=== PATIENT | male | born 1965 | race Two or more races ===

== ENCOUNTER 2024-04-27 20:43 | Inpatient (IN) | payer MEDICAID, SELFPAY ==
--- NOTE | 2024-04-27 20:56 | EKG_ITS ---
[facility] Test Date: 2024-04-27 Pat Name: DARIN ATKINSON Department: Room: - Gender: Male Patient Support Partner: : 1965 Requested By: Brandin Miller Order Number: [id number] Reading MD: Brandin Miller Measurements Intervals [place] Rate: 83 P: 38 AL: 176 QRS: 29 QRSD: 109 T: 50 QT: 386 QTc: 454 Interpretive Statements SINUS RHYTHM WITH OCCASIONAL SUPRAVENTRICULAR PREMATURE COMPLEXES WARNING: DATA QUALITY MAY AFFECT INTERPRETATION No previous ECG available for comparison /store/S0/[id number]/ecg/[id number]
--- NOTE | 2024-04-27 20:56 | XR_ITS ---
Examination: AP chest single view Technique one AP portable upright chest single view Exam date and time: April 27, [id number] hrs. Indications: Vomiting blood today Findings: No aspiration pneumonia Mild prominence left ventricle Mild ectasia thoracic aorta Intact osseous structures Impression: Negative for aspiration pneumonia
--- NOTE | 2024-04-27 20:59 | EDNOTE_ITS ---
ED General RME/HPI General Chief complaint: GI Bleed Stated complaint: VOMITING BLOOD Time Seen by Provider: 04/27/24 20:56 Arrival date/time: 04/27/24 20:43 CC alcohol intoxication vomiting blood bloody stool HPI EMS report picking him up at a house facility where the patient been drinking all day. Patient states again complaining of vomiting, but no back pain abdominal pain chest pain or nausea or vomiting diarrhea. Upon arrival patient vomited bright red blood in addition to foul-smelling burgundy feces. Related Data Previous Rx's ?Medication ?Instructions ?Recorded nadolol 20 mg tablet 20 mg PO QDAY #30 tabs 02/10 Allergies Allergy/AdvReac Type Severity Reaction Status Date / Time No Known Allergies Allergy Verified 04/05/17 18:56 Review of Systems Review of Systems Narrative Review of Systems: GEN: No fever, no chills, no weight loss EYES: No discharge, no visual changes, no pain HEENT: No ear pain, no congestion, no sore throat PULM: No shortness of breath, no cough, no congestion CV: No chest pain, no dyspnea on exertion, no palpitations GI: No nausea, + vomiting, no diarrhea, no pain, no constipation : No frequency, no urgency, no dysuria MUSC/SKEL: No joint pain, no back pain SKIN: No rash PSYCH: No hallucinations, no depression HEME/LYMPH: No easy bleeding or bruising tendencies NEURO: No weakness, no headache Past Medical History Past Medical History NEUROLOGIC: Negative Seizures CARDIAC: Negative Congestive Heart Failure RESPIRATORY: Negative Chronic Obstructive Pulmonary Disease (COPD) GENITOURINARY: Negative Renal Disease ENDOCRINE: Positive Diabetes Mellitus Type 1; Negative Diabetes Mellitus Type 2 OTHER HISTORY: Positive Blood Transfusions; Negative Blood Transfusion Reaction or Anesthesia Reactions Social History SMOKING STATUS: Former smoker ED Exam Narrative Physical exam: [General: Appears not in any acute distress Head normocephalic HEENT: Eyes pupils are PERRLA EOMs are intact subtle jaundice, nose no rhinorrhea mouth pink dry membranes uvula is midline swallow symmetrical all the subsystems of HEENT are within acceptable limits Neck is supple nontender Chest equal chest rise nontender to palpation Respiratory: Clear to auscultation no wheezes crackles or rubs CV: Rate rhythm is regular no murmurs rubs or clicks Abdomen is soft nontender no masses positive bowel sounds all 4 quadrants Back: No CVA tenderness no spinous process tenderness from cervical spine thoracic and lumbar spine Skin: Intact no petechiae rash induration ulceration or crepitus Extremities: Moving all extremity against resistance cap refill less than 2 seconds neurosensory intact Neuro: Awake alert oriented x3 Glascow coma 15 no focal deficits] Course Quality Measures VTE prophylaxis Orders Category Date Time Status Bedside COVID-19 Antigen Test NOW Care 04/27/24 21:47 Active COVID-19 Screening Questionnaire NOW Care 04/27/24 21:18 Active EKG (ED ONLY) *Do not use* NOW Care 04/27/24 20:56 Completed EKG (ED ONLY) *Do not use* NOW Care 04/27/24 22:12 Completed Endoscopy Consents .On arrival Care 04/27/24 21:41 Active NPO after Midnight ONCE Care 04/27/24 21:41 Active Saline [Insert IV] NOW Care 04/27/24 20:56 Active Transfuse,blood/blood products NOW Care 04/27/24 21:27 Active Consult to Gastroenterology Stat Cons 04/27/24 21:12 Ordered EKG (ED Only) Stat Exams 04/27/24 20:56 Draft EKG (ED Only) Stat Exams 04/27/24 22:12 Draft XR chest 1V Stat Exams 04/27/24 20:56 Completed Alcohol, Blood Medical Stat Lab 04/27/24 21:02 Completed B-Type Natriuretic Peptide Stat Lab 04/27/24 21:02 Completed CBC Stat Lab 04/27/24 21:02 Completed Comprehensive Metabolic Panel Stat Lab 04/27/24 21:02 Completed Drug Screen,Urine Stat Lab 04/27/24 23:30 Completed LDH (Lactate Dehydrogenase) Stat Lab 04/27/24 21:02 Completed Magnesium Stat Lab 04/27/24 21:02 Completed Partial Thromboplastin Time Stat Lab 04/27/24 21:02 Completed Path Review Blood Smear Stat Lab 04/27/24 21:02 Completed Prothrombin Time with INR Stat Lab 04/27/24 21:02 Completed Troponin I Stat Lab 04/27/24 21:02 Completed Type and Screen Stat Lab 04/27/24 21:02 Results Urinalysis Stat Lab 04/27/24 23:30 Completed prbc [Red Blood Cells] Stat Lab 04/27/24 21:02 Results Octreotide Acet Inj [SandoSTATIN Inj] Med 04/27/24 21:06 Discontinued 50 mcg IV X1 ONE Ondansetron Inj [Zofran Inj] Med 04/27/24 21:25 Discontinued 8 mg IV X1 ONE Pantoprazole Inj [Protonix Inj] Med 04/27/24 20:56 Discontinued 40 mg IVP X1 ONE Pantoprazole/Ns 80Mg IV Premix [Protonix/NS 80mg IV Med 04/27/24 20:57 Active Premix] 80 mg in 100 ml IV Q10H Sodium Chloride 0.9% 500 ml [Ns] 500 ml Med 04/27/24 22:16 Discontinued IV 999 mls/hr Sodium Chloride 0.9% [Ns] 100 ml Med 04/27/24 20:57 Active Octreotide Acet Inj [SandoSTATIN Inj] 1,000 mcg IV 50 mcg/hr Vital Signs Vital signs: Vital Signs Temperature 97.2 F 04/27/24 21:23 Pulse Rate 79 04/27/24 21:23 Respiratory Rate 17 04/27/24 21:23 Blood Pressure 101/48 L 04/27/24 21:23 Pulse Oximetry (%) 100 04/27/24 21:23 Oxygen Delivery Method Room Air 04/27/24 21:23 [facility] Patient data External records reviewed:: [facility] previous records and EMS form Clinical information provided by:: patient and EMS Social determinants that could affect healthcare access:: none Patient has the following chronic illnesses:: Hypertension hyperlipidemia diabetes alcohol abuse How is presenting disease/condition affected by chronic disease/condition?: e xacerbated by Evaluation data The following diagnostics were reviewed and interpreted by me:: other (specify) Lab and/or radiology exams considered but not ordered:: EKG performed at 2106 shows a ventricular rate of 83 SD interval 176 QRS of 109 QTc of 425 this is sinus rhythm. CBC shows a leukocytosis of 14,000 hemoglobin of 5.6 hematocrit of 17.7 platelets at 94 PT at 15.4 INR 1.4 PTT of 26.1 CMP shows CO2 of 13.8 and a gap of 21 creatinine of 1.6 glucose of 132 calcium of 7.9 total bili of 2.9 AST of 1305 ALT of 667 alk phos of 97 Troponin is negative BNP is 24 Alcohol level is 298 Interpretation Summary: Patient's case discussed with Dr. Liu agrees to consult on the patient for upper GI bleed patient is in agreement with this plan. Patient's case discussed with resident for Dr. Miller, attending, who agrees to accept the patient for admission. Medications Medications considered but not ordered:: None Medication administrations:: Medication Administration History Acetaminophen (Acetaminophen 325 Mg Tablet) 325 mg PO Q6H PRN PRN Reason: Pain (1-3) & Fever >101.5 Stop: 05/27/24 22:47 Dextrose (Dextrose 50%-Water Inj 50 Ml Syringe) 25 ml IV Q15MIN PRN PRN Reason: BG 50-70 responsive npo pt Stop: 05/28/24 01:58 Dextrose (Dextrose 50%-Water Inj 50 Ml Syringe) 50 ml IV Q15MIN PRN PRN Reason: BG <50 OR BG <70 & pt unresponsive Stop: 05/28/24 01:58 Glucagon (Glucagon Inj 1 Mg Vial) 1 mg IM Q15MIN PRN PRN Reason: BG <70, and no IV access Octreotide Acetate 1,000 mcg/ (Sodium Chloride) 102 mls @ 5.1 mls/hr IV .Q20H [facility]; Protocol Stop: 04/28/24 16:56 Last Admin: 04/27/24 21:17 Dose: 50 mcg/hr, 5.1 mls/hr Documented By: CINDI Pantoprazole Sodium (Protonix/Ns 80mg Iv Premix) 80 mg in 100 mls @ 10 mls/hr IV Q10H [facility] Stop: 04/30/24 18:56 Last Admin: 04/28/24 05:48 Dose: 10 mls/hr Documented By: Infusion: 04/28/24 05:48 Dose: Infused Documented By: Admin: 04/27/24 21:13 Dose: 10 mls/hr Documented By: CINDI Ceftriaxone Sodium 1,000 mg/ (Sodium Chloride) 50 mls @ 100 mls/hr IV HS [facility] Stop: 05/05/24 20:59 Octreotide Acetate 1,000 mcg/ (Sodium Chloride) 102 mls @ 5.1 mls/hr IV .Q20H [facility]; Protocol Stop: 05/02/24 22:55 Albumin Human (Albuminar-25 Ivpb) 25 gm in 100 mls @ 100 mls/hr IV QDAY [facility] Stop: 05/01/24 09:40 Last Admin: 04/28/24 10:05 Dose: 100 mls/hr Documented By: INNA Insulin Human Lispro (Insulin Lispro (Admelog) 1 Unit/0.01 Ml Unit) 0 unit SC Q6HR [facility]; Protocol Stop: 05/28/24 05:59 Last Admin: 04/28/24 05:47 Dose: 1 unit Documented By: HARJIT Co-signed By: AIDEN Lorazepam (Lorazepam 2 Mg/Ml Vial) 0.5 mg IV Q4H PRN PRN Reason: CIWA SCORE 8-13 Stop: 05/02/24 22:57 Lorazepam (Lorazepam 2 Mg/Ml Vial) 2 mg IV Q4H PRN PRN Reason: CIWA SCORE 20-25 Stop: 05/02/24 22:57 Lorazepam (Lorazepam 2 Mg/Ml Vial) 2 mg IVP X1 PRN PRN Reason: Breakthrough Agitation Lorazepam (Lorazepam 2 Mg/Ml Vial) 1 mg IV Q4H PRN PRN Reason: CIWA SCORE 14-19 Stop: 05/02/24 22:57 Ondansetron HCl (Ondansetron Inj 2 Mg/Ml Inj 2 Ml) 4 mg IV Q6H PRN; Protocol PRN Reason: NAUSEA OR VOMITING Stop: 05/27/24 22:47 Last Admin: 04/28/24 07:54 Dose: 4 mg Documented By: INNA Prednisone (Prednisone 20 Mg Tablet) 40 mg PO QDAY [facility] Stop: 05/05/24 07:58 Last Admin: 04/28/24 09:40 Dose: 40 mg Documented By: JRR Discontinued Medications Dextrose (Dextrose 50%-Water Inj 50 Ml Syringe) 50 ml IV X1 ONE Stop: 04/28/24 07:40 Last Admin: 04/28/24 07:55 Dose: 50 ml Documented By: INNA Sodium Chloride (Ns) 500 mls @ 999 mls/hr IV .Q31M ONE Stop: 04/27/24 22:46 Last Admin: 04/27/24 22:36 Dose: 999 mls/hr Documented By: CINDI Sodium Chloride (Ns) 500 mls @ 999 mls/hr IV .Q31M ONE Stop: 04/27/24 23:18 Last Admin: 04/28/24 01:01 Dose: 999 mls/hr Documented By: HARJIT Octreotide Acetate 1,000 mcg/ (Sodium Chloride) 102 mls @ 5.1 mls/hr IV .Q20H [facility]; Protocol Stop: 05/02/24 22:55 Last Admin: 04/28/24 07:17 Dose: Not Given Documented By: INNA Non-Admin Reason: Wrong Time Thiamine HCl 100 mg/ Sodium (Chloride) 51 mls @ 102 mls/hr IV X1 STA Stop: 04/27/24 23:27 Last Admin: 04/28/24 01:46 Dose: 102 mls/hr Documented By: HARJIT Ceftriaxone Sodium 1,000 mg/ (Sodium Chloride) 50 mls @ 100 mls/hr IV X1 ONE Stop: 04/27/24 23:44 Last Admin: 04/28/24 02:13 Dose: 100 mls/hr Documented By: HARJIT Calcium Gluconate/Sodium Chloride (Calcium Gluc/Ns 1000mg Ivpb) 1,000 mg in 50 mls @ 50 mls/hr IV X1 ONE Stop: 04/28/24 08:38 Last Admin: 04/28/24 07:55 Dose: 50 mls/hr Documented By: INNA Insulin Human Regular (Insulin Hum Regular 1 Unit/0.01 Ml (Per Unit)) 5 unit IV X1 ONE Stop: 04/28/24 07:40 Last Admin: 04/28/24 07:56 Dose: 5 unit Documented By: INNA Co-signed By: KYLIE Octreotide Acetate (Octreotide Acet Inj 50 Mcg/Ml Vial) 50 mcg IV X1 ONE Stop: 04/27/24 21:07 Last Admin: 04/27/24 21:16 Dose: 50 mcg Documented By: CINDI Ondansetron HCl (Ondansetron Inj 2 Mg/Ml Inj 2 Ml) 8 mg IV X1 ONE; Protocol Stop: 04/27/24 21:26 Last Admin: 04/27/24 21:59 Dose: 8 mg Documented By: CINDI Pantoprazole Sodium (Pantoprazole Inj 40 Mg Vial) 40 mg IVP X1 ONE Stop: 04/27/24 20:57 Last Admin: 04/27/24 21:13 Dose: 40 mg Documented By: CINDI Pantoprazole Sodium (Pantoprazole 40 Mg Tablet) 40 mg PO Q12HR [facility] Stop: 05/28/24 08:59 Pantoprazole Sodium (Pantoprazole Inj 40 Mg Vial) 40 mg IVP BID SREE Stop: 05/28/24 08:59 Phytonadione (Phytonadione Inj 10 Mg/Ml Amp) 10 mg IV X1 ONE Stop: 04/28/24 09:42 Last Admin: 04/28/24 10:05 Dose: 10 mg Documented By: INNA None Consultations Consultation(s) initiated? (list below): No Diagnosis Differential Diagnosis ED Complaint MDM: GI bleed anemia alcohol intoxication Most likely diagnosis given after review of the tests above:: GI bleed alcohol intoxication anemia Admission Indicated Admission indicated?: indicated Explain why admission is indicated or not indicated:: Requires further medical management Admission Request Was there a request for admission?: No Disposition Plan Disposition Plan: Admit Medical Decision Making Differential Diagnosis Differential Diagnosis: GI bleed anemia alcohol intoxication Lab Data 04/28/24 08:26 04/28/24 08:13 Labs: Lab Results 04/27/24 Range/Units 21:02 WBC 14.0 H (3.8-10.6) Thou/mm3 RBC 2.17 L (4.50-5.90) Miln/mm3 Hgb 5.6 L* (13.5-16.0) g/dL Hct 17.7 L* (41.0-53.0) % MCV 82 (80-100) fL MCH 25.8 (25.0-35.0) pg MCHC 31.6 (31.0-37.0) g/dl RDW Std Deviation 61.9 H (35.1-43.9) fL Plt Count 94 L (140-440) Thou/mm3 Neut % (Auto) 77 (37-80) % Lymph % (Auto) 13 (10-50) % [place] % (Auto) 9 (0-12) % Eos % (Auto) 0 (0-10) % Baso % (Auto) 0 (0-2.5) % Neut # (Auto) 10.7 H (1.8-7.7) Thou/mm3 Lymph # (Auto) 1.9 (1.0-4.8) Thou/mm3 [place] # (Auto) 1.2 H (0.0-0.8) Thou/mm3 Eos # (Auto) 0.0 (0.0-0.5) Thou/mm3 Baso # (Auto) 0.0 (0.0-0.2) Thou/mm3 Immature Gran # (Auto) 0.16 H (0.00-0.00) Thou/mm3 Absolute Nucleated RBC 0.03 H (0.00-0.00) Thou/mm3 Immature Gran % 1 H (0-0) % Nucleated RBC % 0 (0) /100 WBC Smear Path Review Sent to Pathologist PT 15.4 H (9.0-12.2) Seconds INR 1.4 H (0.9-1.3) APTT 26.1 (22.0-36.0) Seconds Sodium 142 (136-145) mMol/L Potassium 4.5 (3.4-5.1) mMol/L Chloride 107 (98-107) mMol/L Carbon Dioxide 13.8 L* (20.0-31.0) mMol/L Anion Gap 21 H (7-16) BUN 22 (9-23) mg/dL Creatinine 1.6 H (0.6-1.3) mg/dL Estim Creat Clear Calc 44.9 L (>60) mL/min eGFR 49 L (60 - ) See Note BUN/Creatinine Ratio 14 (12-20) Ratio Glucose 132 H (74-106) mg/dL Calculated Osmolality 288 (275-295) Calcium 7.9 L (8.3-10.6) mg/dL Corrected Calcium 8.9 (8.5-10.1) mg/dL Magnesium 2.6 (1.6-2.6) mg/dL Total Bilirubin 2.9 H (0.3-1.2) mg/dL AST 1305 H* (0-34) U/L ALT 667 H* (10-49) U/L Alkaline Phosphatase 97 (46-116) U/L Lactate Dehydrogenase 1904 H (120-246) U/L Troponin I 0.020 (0.0-0.045) ng/mL B-Natriuretic Peptide 24 (0-100) pg/mL Total Protein 5.2 L (5.7-8.2) gm/dL Albumin 2.8 L (3.5-5.0) gm/dL Globulin 2.4 (2.3-3.5) gm/dL Albumin/Globulin Ratio 1.2 (1.2-2.2) Ethyl Alcohol 298.1 H (0-10.0) mg/dL Blood Type O Positive Antibody Screen NEGATIVE Crossmatch See Detail Blood Bank Wristband ID Yes Discharge Plan Plan Patient Disposition: Admit Acute Care w/in Hospital Patient condition on transfer: Stable Problem List Clinical Impression: Acute upper GI bleeding, Anemia, Alcohol intoxication PA/PIGMENT GRINDER Supervising Physician PA/PIGMENT GRINDER Supervising Physician: Brandin Vargas ENP
[2024-04-27] MEDS: PANTOPRAZOLE/NS 80MG IV PREMIX 80 MG/100 ML BAG 10 MG IV (21:13)
[2024-04-27] MEDS: PANTOPRAZOLE INJ 40 MG VIAL IVP (21:13)
[2024-04-27] MEDS: OCTREOTIDE ACET INJ 50 mCg/ML VIAL IV (21:16)
[2024-04-27] MEDS: OCTREOTIDE ACET INJ 1,000 MCG in SODIUM CHLORIDE 0.9% 100 ML 5.1 MCG IV (21:17)
[2024-04-27 21:23] VITALS: BP 101/48; PULSE 79; RESP 17; TEMP 36.2; O2SAT 100
[2024-04-27 21:23] LABS: Basophils % (Auto) 0 % (0-2.5); Eosinophils % (Auto) 0 % (0-10); Immature Granulocytes % (Auto) 1 % (0-0); Immature Granulocytes Auto 0.16 Thou/mm3 (0.00-0.00); Lymphocytes # (Auto) 1.9 Thou/mm3 (1.0-4.8); Lymphocytes % (Auto) 13 % (10-50); Mean Corpuscular HGB Conc 31.6 g/dl (31.0-37.0); Mean Corpuscular Hemoglobin 25.8 pg (25.0-35.0); Mean Corpuscular Volume 82 fL (80-100); Monocytes # (Auto) 1.2 Thou/mm3 (0.0-0.8); Monocytes % (Auto) 9 % (0-12); Neutrophils # (Auto) 10.7 Thou/mm3 (1.8-7.7); Neutrophils % (Auto) 77 % (37-80); Nucleated Red Blood Cell # 0.03 Thou/mm3 (0.00-0.00); Nucleated Red Blood Cell % 0 /100 WBC (0); Platelet Count 94 Thou/mm3 (140-440); RDW Standard Deviation 61.9 fL (35.1-43.9); Red Blood Count 2.17 Miln/mm3 (4.50-5.90)
[2024-04-27 21:28] LABS: Hematocrit 17.7 % (41.0-53.0); Hemoglobin 5.6 g/dL (13.5-16.0)
[2024-04-27 21:30] VITALS: PULSE 91; RESP 20; O2SAT 98
[2024-04-27 21:39] LABS: INR 1.4 (0.9-1.3); Partial Thromboplastin Time 26.1 Seconds (22.0-36.0); Prothrombin Time 15.4 Seconds (9.0-12.2)
--- NOTE | 2024-04-27 21:40 | ESCONSULT_ITS ---
HPI Consult Narrative Reason for consult: Hematemesis History of present illness: 59 male evaluated at request of the physician assignment desk assistant in the emergency room for hematemesis and hematochezia Patient has been drinking up until he came to the hospital He has a previous history of upper GI bleed due to hypertensive portal gastropathy and esophageal varices cc:: cc: Review of Systems Review of Systems Systems Reviewed: All systems reviewed, normal except as documented Meds Home Medications and Allergies Allergies Allergy/AdvReac Type Severity Reaction Status Date / Time No Known Allergies Allergy Verified 04/05/17 18:56 Exam Vital Signs Temp Pulse Resp BP Pulse Ox O2 Del Method 97.2 F 79 17 101/48 L 100 Room Air 04/27/24 21:23 04/27/24 21:23 04/27/24 21:23 04/27/24 21:23 04/27/24 21:23 04/27/24 21:23 Constitutional Comments: Alert oriented Routine Respiratory Exam Comments: Normal to auscultation Routine Abdominal Exam Comments: Soft nontender Results Labs 04/28/24 12:16 04/28/24 08:13 Labs: Short CBC 04/27/24 Range/Units 21:02 WBC 14.0 H (3.8-10.6) Thou/mm3 Hgb 5.6 L* (13.5-16.0) g/dL Hct 17.7 L* (41.0-53.0) % Plt Count 94 L (140-440) Thou/mm3 Assessment and Plan Additional Assessment & Plan Additional Plan: # Hematemesis # Hematochezia in the setting of chronic liver disease secondary to alcohol Plan Case discussed with the emergency room physician assignment desk assistant Serial CBC Octreotide 50 mcg IV push and 50 mcg/h continuous infusion Protonix drip at 8 mg/h N.p.o. Consent obtained for fiberoptic esophagogastroduodenoscopy with possible therapeutic intervention under intravenous moderate sedation and scheduled Prognosis is guarded Advised the patient to be completely abstinent from alcohol otherwise the prognosis is much worse
[2024-04-27 21:46] LABS: B-Type Natriuretic Peptide 24 pg/mL (0-100)
[2024-04-27] MEDS: ONDANSETRON INJ 2 MG/ML INJ 2 ML 8 MG IV (21:59)
[2024-04-27 22:03] VITALS: BMI 25.0
--- NOTE | 2024-04-27 22:12 | EKG_ITS ---
[facility] Test Date: 2024-04-27 Pat Name: DARIN ATKINSON Department: Room: - Gender: Male Physiotherapist'S Assistant: : 1965 Requested By: Brandin Miller Order Number: [id number] Reading MD: Brandin Miller Measurements Intervals [place] Rate: 75 P: 0 [place]: 182 QRS: 37 QRSD: 114 T: 49 QT: 405 QTc: 453 Interpretive Statements SINUS RHYTHM MODERATE INTRAVENTRICULAR CONDUCTION DELAY [110+ ms QRS DURATION] Compared to ECG 04/27/2024 21:07:46 Intraventricular conduction delay now present /store/S0/[id number]/ecg/[id number]
[2024-04-27 22:14] LABS: Alanine Aminotransferase 667 U/L (10-49); Albumin, Serum 2.8 gm/dL (3.5-5.0); Albumin/Globulin Ratio 1.2 (1.2-2.2); Alcohol, Blood Medical 298.1 mg/dL (0-10.0); Alkaline Phosphatase 97 U/L (46-116); Anion Gap 21 (7-16); Aspartate Amino Transferase 1305 U/L (0-34); BUN/Creatinine Ratio 14 Ratio (12-20); Bilirubin,Total 2.9 mg/dL (0.3-1.2); Blood Urea Nitrogen 22 mg/dL (9-23); Calcium 7.9 mg/dL (8.3-10.6); Calcium (Corrected) 8.9 mg/dL (8.5-10.1); Chloride 107 mMol/L (98-107); Creatinine (Component) 1.6 mg/dL (0.6-1.3); Estimated Creatinine Clearance 44.9 mL/min (>60); Globulin 2.4 gm/dL (2.3-3.5); Glucose 132 mg/dL (74-106); Magnesium 2.6 mg/dL (1.6-2.6); Osmolality,Calculated 288 (275-295); Potassium 4.5 mMol/L (3.4-5.1); Sodium 142 mMol/L (136-145); Total Protein 5.2 gm/dL (5.7-8.2); eGFR 49 See Note
--- NOTE | 2024-04-27 22:15 | PC.NURSE ---
pt seen MD calabrese, will have EGD in am. MD wong in room doing intial assessment for admit, new orders received and critical values reported in person. see charting. pt moved to 01 @[id number]
[2024-04-27 22:23] LABS: Carbon Dioxide 13.8 mMol/L (20.0-31.0)
[2024-04-27 22:29] VITALS: BP 94/45; PULSE 76; PULSE 77; RESP 16; RESP 20; O2SAT 100
[2024-04-27] MEDS: SODIUM CHLORIDE 0.9% 500 ML 500 ML 999 ML IV (22:36)
[2024-04-27 22:48] VITALS: BP 97/48; PULSE 77; RESP 16; TEMP 36.4; O2SAT 100
[2024-04-27 23:03] LABS: LDH (Lactate Dehydrogenase) 1904 U/L (120-246)
[2024-04-27 23:04] VITALS: BP 109/53; PULSE 84; RESP 16; TEMP 36.4; O2SAT 100
--- NOTE | 2024-04-27 23:10 | ESHP_ITS ---
Documentation for date of: 04/27/24 HPI History of Present Illness Chief complaint: Bloody emesis History of present illness: Mr. Villarreal is a 57-year-old male with past medical history of hypertension, hyperlipidemia, diabetes mellitus and alcohol use disorder who was BIBA to [facility] emergency department on 04/27/2024 with a chief complaint of blood in vomit. Patient at bedside reported that he has been vomiting blood and has noticed blood in stool since a.m. today, reported that he has been drinking a lot of beer, reports drinking from 8 AM to 6 PM today, he reports that he has been feeling dizzy, complains of headache currently. Otherwise patient denies any chest pain, abdominal pain and shortness of breath. Patient denies following up with a collar closer lockstitch or primary care physician outpatient, reports last time he saw a doctor was about 3 years ago. ED Course: ED Vitals: On presentation blood pressure 101/48, P 79, temp 97.2, respiratory rate 17, O2 sat 100 on room air ED Labs: Emergency department labs significant for WBC 14.0, RBC 2.17, hemoglobin 5.6, hematocrit 17.7, platelet count 94,000 neutrophil 10.7 thousand PT 15.4, INR 1.4, VBG pH 7.29 pCO2 27, sodium 142, potassium 4.5 venous CO2 13.8 anion gap 21 creatinine 1.6, GFR 49 glucose 132 lactate 10.6, total bilirubin 2.9, AST 1305, ALT 667, LDH 1904. Blood alcohol level 298.1, marijuana positive in urine drug screen ED Imaging:Chest x-ray in ED negative for aspiration pneumonia ED Treatment:Patient was given pantoprazole 40 mg IVP x 1, started on Protonix drip and octreotide drip in ED, was given Zofran 8 mg IV x 1 Review of Systems Review of Systems Narrative Review of Systems: ROS: -CONSTITUTIONAL: Denies weight loss, fever and chills. Positive for dizziness. -HEENT: Denies changes in vision and hearing. -RESPIRATORY: Denies SOB and cough. -CV: Denies palpitations and Chest Pain. -GI: Positive for bloody emesis, blood in stool. -: Denies dysuria and urinary frequency. -MSK: Denies myalgia and joint pain. -SKIN: Denies rash and pruritus. -NEUROLOGICAL: Positive for headache and dizziness, denies syncope. -PSYCHIATRIC: Denies recent changes in mood. Denies anxiety and depression. Positive for heavy alcohol use. Past Medical History Past Medical History Comments PMH COMMENT: PMH: Positive for hypertension, hyperlipidemia, diabetes mellitus and alcohol use disorder PSHx: EGD in 2022 Allergies: No known allergies Social history: -Smoking: Denies -Alcohol Use: Positive for alcohol use, reports drinking multiple cans of beer daily, from 8 a.m. to 6 PM, last drink today -Illicit Drug Use: Denies any methamphetamine, heroin and THC use Family History: No significant family history Exam Vital Signs Temp Pulse Resp BP Pulse Ox O2 Del Method 97.5 F 84 16 109/53 L 100 Room Air 04/27/24 23:04 04/27/24 23:04 04/27/24 23:04 04/27/24 23:04 04/27/24 23:04 04/27/24 22:29 Narrative Exam Physical Exam General: Awake and in no acute distress. Conversational and non-toxic appearing. HEENT: Normocephalic, atraumatic, mucous membranes dry. Heart: Regular rate and rhythm, no murmurs. Lungs: Clear to auscultation with no wheezing or crackles. Abdomen: Soft, nondistended, nontender, positive bowel sounds. ?No guarding or rebound tenderness. Neurologic: Alert and oriented x3, no gross neurological deficit, and patient able to move all 4 extremities. Extremities: No edema. Skin: No rash or ecchymoses. Results: Labs 04/28/24 12:16 04/28/24 08:13 Labs: Short CBC 04/27/24 Range/Units 21:02 WBC 14.0 H (3.8-10.6) Thou/mm3 Hgb 5.6 L* (13.5-16.0) g/dL Hct 17.7 L* (41.0-53.0) % Plt Count 94 L (140-440) Thou/mm3 BMP 04/27/24 21:02 Sodium 142 Potassium 4.5 Chloride 107 Carbon Dioxide 13.8 L* BUN 22 Creatinine 1.6 H Glucose 132 H Calcium 7.9 L Cardiac Enzymes 04/27/24 Range/Units 21:02 Troponin I 0.020 (0.0-0.045) ng/mL Liver Function 04/27/24 Range/Units 21:02 Total Bilirubin 2.9 H (0.3-1.2) mg/dL AST 1305 H* (0-34) U/L ALT 667 H* (10-49) U/L Alkaline Phosphatase 97 (46-116) U/L Albumin 2.8 L (3.5-5.0) gm/dL Quality Measures Quality Measures VTE prophylaxis Medications Home Medications and Allergies Allergies Allergy/AdvReac Type Severity Reaction Status Date / Time No Known Allergies Allergy Verified 04/05/17 18:56 Visit Medications Acetaminophen (Acetaminophen 325 Mg Tablet) 325 mg PO Q6H PRN PRN Reason: Pain (1-3) & Fever >101.5 Stop: 05/27/24 22:47 Octreotide Acetate 1,000 mcg/ (Sodium Chloride) 102 mls @ 5.1 mls/hr IV .Q20H ONE; Protocol Stop: 04/28/24 16:56 Last Admin: 04/27/24 21:17 Dose: 50 mcg/hr, 5.1 mls/hr Pantoprazole Sodium (Protonix/Ns 80mg Iv Premix) 80 mg in 100 mls @ 10 mls/hr IV Q10H SREE Stop: 04/30/24 18:56 Last Admin: 04/27/24 21:13 Dose: 10 mls/hr Sodium Chloride (Ns) 500 mls @ 999 mls/hr IV .Q31M ONE Stop: 04/27/24 23:18 Octreotide Acetate 1,000 mcg/ (Sodium Chloride) 102 mls @ 5.1 mls/hr IV .Q20H SREE; Protocol Stop: 05/02/24 22:55 Ceftriaxone Sodium 1,000 mg/ (Sodium Chloride) 50 mls @ 100 mls/hr IV QDAY SREE Stop: 05/04/24 22:56 Thiamine HCl 100 mg/ Sodium (Chloride) 51 mls @ 102 mls/hr IV X1 STA Stop: 04/27/24 23:27 Ceftriaxone Sodium 1,000 mg/ (Sodium Chloride) 50 mls @ 100 mls/hr IV X1 ONE Stop: 04/27/24 23:44 Lorazepam (Lorazepam 2 Mg/Ml Vial) 0.5 mg IV Q4H PRN PRN Reason: CIWA SCORE 8-13 Stop: 05/02/24 22:57 Lorazepam (Lorazepam 2 Mg/Ml Vial) 2 mg IV Q4H PRN PRN Reason: CIWA SCORE 20-25 Stop: 05/02/24 22:57 Lorazepam (Lorazepam 2 Mg/Ml Vial) 2 mg IVP X1 PRN PRN Reason: Breakthrough Agitation Lorazepam (Lorazepam 2 Mg/Ml Vial) 1 mg IV Q4H PRN PRN Reason: CIWA SCORE 14-19 Stop: 05/02/24 22:57 Ondansetron HCl (Ondansetron Inj 2 Mg/Ml Inj 2 Ml) 4 mg IV Q6H PRN; Protocol PRN Reason: NAUSEA OR VOMITING Stop: 05/27/24 22:47 Discontinued Medications Sodium Chloride (Ns) 500 mls @ 999 mls/hr IV .Q31M ONE Stop: 04/27/24 22:46 Last Admin: 04/27/24 22:36 Dose: 999 mls/hr Octreotide Acetate (Octreotide Acet Inj 50 Mcg/Ml Vial) 50 mcg IV X1 ONE Stop: 04/27/24 21:07 Last Admin: 04/27/24 21:16 Dose: 50 mcg Ondansetron HCl (Ondansetron Inj 2 Mg/Ml Inj 2 Ml) 8 mg IV X1 ONE; Protocol Stop: 04/27/24 21:26 Last Admin: 04/27/24 21:59 Dose: 8 mg Pantoprazole Sodium (Pantoprazole Inj 40 Mg Vial) 40 mg IVP X1 ONE Stop: 04/27/24 20:57 Last Admin: 04/27/24 21:13 Dose: 40 mg Pantoprazole Sodium (Pantoprazole 40 Mg Tablet) 40 mg PO Q12HR SREE Stop: 05/28/24 08:59 Pantoprazole Sodium (Pantoprazole Inj 40 Mg Vial) 40 mg IVP BID SREE Stop: 05/28/24 08:59 Assessment & Plan Plan Assessment and Plan: Summary: Mr. Villarreal is a 57-year-old male with past medical history of hypertension, hyperlipidemia, diabetes mellitus and alcohol use disorder who was BIBA to [facility] emergency department on 04/27/2024 with a chief complaint of blood in vomit. Patient admitted for further workup for GI bleed. #GI bleed #Esophageal varices, grade 3, by history #Anemia secondary to blood loss Patient presented with complaint of GI bleed, patient reports blood in vomit and bright red blood in stool for about 1 day, patient has history of esophageal varices and heavy alcohol use, cirrhosis secondary to alcohol use. On presentation in ED patient had an episode of bloody emesis and soiled and foul- smelling burgundy feces. Noemy Blatchford score: 12.0, high risk, hemoglobin in ED 5.6. EGD 2022:Esophageal varices without bleeding, 3+ esophageal varices status post 1 band, mild gastritis Plan: -Continue IV octreotide gtt. (04/27- -Continue IV Protonix gtt. (04/27- -IV ceftriaxone 1 g daily for SBP prophylaxis for 7 days -Ordered 2 unit PRBC transfusion, follow posttransfusion H&H, holding 2 units -GI consulted, n.p.o. after midnight, possible EGD in a.m. -Bleeding precautions -Given 1 L NS bolus -Transfuse PRBC as needed for hemoglobin less than 7, platelets as needed for platelets less than 50,000 #Transaminitis #Hyperbilirubinemia On presentation AST 1305, ALT 667, AST ALT ratio 2:1, total bilirubin 2.9. Patient reports heavy alcohol use., Lactate 10.6 on presentation, blood pressure soft on presentation, was given 1 L NS bolus. Differentials include alcoholic hepatitis, ordered hepatitis panel to rule out viral hepatitis, possible ischemic damage secondary to hypertension/poor perfusion/blood loss. Plan: -Follow CMP in a.m. -Follow hep panel in a.m. -Consider liver ultrasound in a.m. #Decompensated cirrhosis #Alcoholic hepatitis #Coagulopathy #Thrombocytopenia Decompensated cirrhosis in setting of upper GI bleed, no history of ascites abdomen mildly distended, low suspicion of ascites currently. INR 1.4, platelet count 94 thou. Janette Garcia score for cirrhosis: 7 point, child class B MELD-Na score 19 points, 3 to 4% estimated 90-day mortality Plan: -Keep acetaminophen less than 2 g in a day -Follow coagulation panel in a.m., consider vitamin K injection if worsening -Consider platelet transfusion if platelets less than 50 thou -Referral to social security specialist, abstain from alcohol use #Acute kidney injury, prerenal versus renal On presentation BUN 22, creatinine 1.6, GFR 49, high suspicion of prerenal in setting of acute blood loss Plan: -Patient given 1 L bolus, follow renal panel in a.m. -Dose medications renally -Avoid nephrotoxic agents #Lactic acidosis #High anion gap metabolic acidosis #Secondary respiratory alkalosis Corrected pH for VBG 7.34, corrected pCO2 for VBG 22, bicarb 13.8, sodium 142, chloride 107, albumin 2.8, lactate 10.6 High anion gap metabolic acidosis in setting of elevated lactate, patient's pCO2 for VBG 22, underlying respiratory alkalosis Plan: -Patient was given 1 L bolus -Follow lactate in a.m. #Alcohol dependence Reports heavy alcohol use on a daily basis Plan: -IV thiamine -CIWA protocol with as needed Ativan IV as patient's n.p.o. -Referral to social security specialist -Monitor for withdrawal #Diabetes Mellitus History of Diabetes Plan: -Sliding Scale Insulin -Follow A1c in AM -Fingerstick Q6H -Hypoglycemia protocol #Hypertension #Hyperlipidemia Pending Med rec, blood pressure soft DVT prophylaxis: SCDs GI prophylaxis: Protonix gtt. Diet: N.p.o. Lines: Peripheral IV Code status: Full code Case discussed with Attending Dr. Miller. Srikanth Moore PGY1 Disclaimer: This note was dictated by speech recognition. Minor errors in flexographic printing press operator may be present due to voice recognition software. Attending Provider Attestation/Addendum I attest that I was physically present for the evaluation, physical examination, lab and imaging review of the patient with the residents. I discussed the case with the residents and agree with the findings and plans of care as documented above. Patient is a 57 years old male with past medical history of hypertension, hyperlipidemia, diabetes mellitus and alcohol use disorder who presented to the ED with complaint of blood in his vomitus. Patient has been drinking heavily, stated that he had been drinking from 8 AM to 6 PM today, following which she had multiple episodes of vomiting with bright red blood. He also noticed blood in his stool. Denies any chest pain, abdominal pain or shortness of breath. In the ED, vitals are within normal limits. Lab results showed WBC of 14.0, hemoglobin 5.6, platelets 94,000, PT/INR 15.4/1.4, VBG pH 7.29, pCO2 27. Chemistry panel also showed CO2 of 13.8, lactate 10.6 with anion gap 21, creatinine 1.6, total bilirubin 2.9, AST 1305, ALT 667, LDH 1904. Toxicology showed blood alcohol level of 298.1 and positive urine marijuana. Chest x-ray was done in the ED did not show pneumonia. Patient was started on 2 units of PRBC, Protonix drip, octreotide drip and Zofran in the ED. We will admit patient for GI bleeding and acute anemia secondary to blood loss. We will continue with octreotide drip, Protonix drip, PRBC, we will add IV Rocephin, normal saline bolus 1 L and obtain GI consult. Patient's liver panel concerning for alcoholic hepatitis, we will hold off on steroid for now given patient's acute GI bleeding pending GI consult. We will follow-up on renal panel and lactate level. David Miller MD
[2024-04-27 23:20] LABS: Path Review Blood Smear Sent to Pathologist
[2024-04-27 23:25] LABS: Base Excess, Venous -12 (-3-3); O2 Saturation, Venous 52 % (96-97); PCO2, Venous 27 mmHg (36-56); PO2, Venous 35 mmHg (15-58); pH, Venous 7.29 (7.33-7.66)
[2024-04-27 23:27] LABS: Lactate (Lactic Acid) 10.6 mMol/L (0.4-2.0)
[2024-04-27 23:35] LABS: Collection Type, Urine Clean Catch; Squamous Epithelial Cell,Urine 0 /hpf (0-5)
[2024-04-27 23:38] LABS: Bilirubin,Urine Negative (Negative); Blood,Urine Negative (Negative); Clarity,Urine Clear (Clear/Hazy); Color,Urine Colorless (Lt Yel-Yel); Glucose, Urine Negative (Negative); Ketones,Urine 2+ (Negative); Leukocyte Esterase,Urine Negative (Negative); Nitrite,Urine Negative (Negative); PH,Urine 6.5 (5.0-7.0); Protein,Urine Negative (Neg - Trace); RBC,Urine 2 /hpf (0-3); Specific Gravity,Urine 1.008 (1.001-1.035); Urobilinogen,Urine Negative mg/dL (0.0-1.0); WBC,Urine 1 /hpf (0-5)
[2024-04-28] VITALS (23 sets, daily range): BP systolic 101–169; BP diastolic 44–93; PULSE 78–109; RESP 12–96; TEMP 36.1–37.1; O2SAT 94–99; BMI 24.8; BMI 31.0
[2024-04-28 00:16] LABS: Amphetamine/Methamp Scrn,U Negative (Negative); Barbiturate Screen,Urine Negative (Negative); Benzodiazepines Screen,Urine Negative (Negative); Benzoylecgonine Screen, Ur Negative (Negative); Fentanyl Screen,Urine Negative (Negative); Opiate Screen,Urine Negative (Negative); THC Screen,Urine Positive (Negative)
[2024-04-28] MEDS: SODIUM CHLORIDE 0.9% 500 ML 500 ML 999 ML IV (01:01)
[2024-04-28] MEDS: THIAMINE INJ 100 MG in SODIUM CHLORIDE 0.9% 50 ML 102 MG IV (01:46)
[2024-04-28] MEDS: cefTRIAXone 1,000 MG in SODIUM CHLORIDE 0.9% (Popper) 50 ML 100 MG IV ×2 (02:13→22:24)
[2024-04-28 02:23] LABS: Reflex Lactate? Y
[2024-04-28 02:33] LABS: Lactic Acid, 3 HR 10.1 mMol/L (0.4-2.0)
[2024-04-28] MEDS: INSULIN LISPRO (AdmeLOG) 1 UNIT/0.01 ML UNIT SC (05:47)
[2024-04-28] MEDS: PANTOPRAZOLE/NS 80MG IV PREMIX 80 MG/100 ML BAG 10 MG IV ×2 (05:48→17:18)
[2024-04-28 06:27] LABS: Basophils % (Auto) 0 % (0-2.5); Eosinophils % (Auto) 0 % (0-10); Immature Granulocytes % (Auto) 1 % (0-0); Immature Granulocytes Auto 0.23 Thou/mm3 (0.00-0.00); Lymphocytes # (Auto) 0.9 Thou/mm3 (1.0-4.8); Lymphocytes % (Auto) 4 % (10-50); Mean Corpuscular HGB Conc 33.8 g/dl (31.0-37.0); Mean Corpuscular Hemoglobin 26.7 pg (25.0-35.0); Mean Corpuscular Volume 79 fL (80-100); Monocytes # (Auto) 1.3 Thou/mm3 (0.0-0.8); Monocytes % (Auto) 7 % (0-12); Neutrophils % (Auto) 87 % (37-80); Nucleated Red Blood Cell # 0.02 Thou/mm3 (0.00-0.00); Nucleated Red Blood Cell % 0 /100 WBC (0); RDW Standard Deviation 52.1 fL (35.1-43.9); Red Blood Count 3.03 Miln/mm3 (4.50-5.90); White Blood Count 19.5 Thou/mm3 (3.8-10.6)
[2024-04-28 06:28] LABS: INR 1.7 (0.9-1.3); Partial Thromboplastin Time 27.9 Seconds (22.0-36.0); Prothrombin Time 17.8 Seconds (9.0-12.2)
[2024-04-28 06:29] LABS: Hemoglobin 8.1 g/dL (13.5-16.0); Platelet Count 65 Thou/mm3 (140-440)
[2024-04-28 06:32] LABS: Glucose Estimated Average 146 mg/dL (80-131); Hemoglobin A1C 6.7 % Hgb (4.8-6.0)
[2024-04-28 07:11] LABS: Hepatitis A Antibody IgM Non Reactive (Non React); Hepatitis B Core Antibody IgM Non Reactive (Non React); Hepatitis B Surface Antigen Non Reactive (Non React); Hepatitis C Antibody Non Reactive (Non React)
[2024-04-28 07:20] LABS: Albumin, Serum 2.7 gm/dL (3.5-5.0); Albumin/Globulin Ratio 1.2 (1.2-2.2); Anion Gap 16 (7-16); Aspartate Amino Transferase > 1000 U/L (0-34); BUN/Creatinine Ratio 21 Ratio (12-20); Bilirubin,Total 3.7 mg/dL (0.3-1.2); Blood Urea Nitrogen 32 mg/dL (9-23); Calcium 7.1 mg/dL (8.3-10.6); Calcium (Corrected) 8.1 mg/dL (8.5-10.1); Carbon Dioxide 15.6 mMol/L (20.0-31.0); Cardiac Risk Estimate 2.7 RATIO (4.0-6.7); Chloride 110 mMol/L (98-107); Cholesterol 103 mg/dL (132-200); Creatinine (Component) 1.5 mg/dL (0.6-1.3); Estimated Creatinine Clearance 47.9 mL/min (>60); Globulin 2.3 gm/dL (2.3-3.5); Glucose 152 mg/dL (74-106); HDL Cholesterol 38 mg/dL (40-60); LDL Cholesterol,Calculated 48 mg/dL (0-130); Magnesium 2.4 mg/dL (1.6-2.6); Osmolality,Calculated 293 (275-295); Phosphorous 6.8 mg/dL (2.4-5.1); Potassium 5.6 mMol/L (3.4-5.1); Sodium 142 mMol/L (136-145); Triglycerides 84 mg/dL (30-150); eGFR 53 See Note
--- NOTE | 2024-04-28 07:42 | XR_ITS ---
Examination: Abdomen sonogram, Limited Date and time of exam: April 28, 2024 1226 hrs. Indications: Cirrhosis, abdominal pain, diagnosis hepatic vein thrombosis Technique: Real-time melgoza scale transabdominal sonographic images of the upper abdomen obtained. Findings: Gallbladder wall is thickened 0.7 cm with probable edema Common bile duct 0.3 cm Pancreatic head 3.3 cm Liver 16.3 cm lobular contour fatty infiltration Normal hepatopedal portal venous flow Patent IVC not thrombus Impression: Recommend HIDA scan follow-up to exclude cholecystitis Cirrhosis fatty infiltration Normal hepatopedal portal venous flow Negative for IVC or hepatic vein thrombus
[2024-04-28 07:52] LABS: Alanine Aminotransferase > 3300 U/L (10-49); Alkaline Phosphatase 100 U/L (46-116)
[2024-04-28] MEDS: ONDANSETRON INJ 2 MG/ML INJ 2 ML 4 MG IV (07:54)
[2024-04-28] MEDS: CALCIUM GLUC/NS 1000MG IVPB 1,000 MG/50 ML BAG 50 MG IV (07:55)
[2024-04-28] MEDS: DEXTROSE 50%-WATER INJ 50 ML SYRINGE IV (07:55)
[2024-04-28] MEDS: INSULIN HUM REGULAR 1 UNIT/0.01 ML (PER UNIT) 5 UNIT IV (07:56)
--- NOTE | 2024-04-28 08:00 | XR_ITS ---
Examination: CT abdomen and pelvis without contrast. Coronal 3-D reconstructions. Sagittal 2-D reconstructions. Date and time of exam:April 28, 2024 1055 hrs. Comparison February 04, 2023 Indications: Generalized abdominal pain today CTDI: vol (mGy): 7.96 DLP: (mGycm): 481 Technique: Axial images of the abdomen have been obtained, 3 mm slice thickness Intravenous contrast material has not been administered. Low dose protocols were performed. One or more of the following dose reduction techniques were used; automated exposure control, adjustment of the mA and/or KV according to patient size, use of iterative reconstruction technique. Findings: Diffuse fatty infiltration throughout the liver, liver is irregular in contour Gallbladder wall appears thickened, small gallstones Mild splenomegaly No pancreatic or adrenal mass Mild bilateral renal parenchymal scar formation Trace ascites Diffuse thickening of the colonic louis Normal appendix No bowel obstruction Distended urinary bladder No significant prostatomegaly Advanced degenerative disc disease L5-S1 Impression: Cirrhosis with fatty infiltration Cholelithiasis, recommend HIDA scan follow-up to confirm cholecystitis Trace ascites Diffuse hepatic colopathy
[2024-04-28 09:04] LABS: Lactate (Lactic Acid) 6.5 mMol/L (0.4-2.0)
[2024-04-28 09:07] LABS: Albumin, Serum 2.5 gm/dL (3.5-5.0); Anion Gap 17 (7-16); BUN/Creatinine Ratio 22 Ratio (12-20); Blood Urea Nitrogen 35 mg/dL (9-23); Calcium 7.5 mg/dL (8.3-10.6); Calcium (Corrected) 8.7 mg/dL (8.5-10.1); Carbon Dioxide 15.5 mMol/L (20.0-31.0); Chloride 111 mMol/L (98-107); Creatinine (Component) 1.6 mg/dL (0.6-1.3); Estimated Creatinine Clearance 44.9 mL/min (>60); Glucose 268 mg/dL (74-106); Osmolality,Calculated 301 (275-295); Phosphorous 6.8 mg/dL (2.4-5.1); Potassium 4.9 mMol/L (3.4-5.1); Sodium 143 mMol/L (136-145); eGFR 49 See Note
[2024-04-28] MEDS: predniSONE 20 MG TABLET 40 MG PO (09:40)
--- NOTE | 2024-04-28 09:40 | ECHO_ITS ---
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 LV Ejection Fraction MOD 4C 60.9 % LV Cardiac Index MOD 4C 4798.7 cm?/min?m? LV Ejection Fraction 4C AL 62.1 % LV Cardiac Index 4C AL 5115.0 cm?/min?m? LV Ejection Fraction MOD 2C 57.4 % LV Cardiac Index MOD 2C 2793.3 cm?/min?m? LV Ejection Fraction 2C AL 58.8 % LV Cardiac Index 2C AL 2886.7 cm?/min?m? LA Volume Index 36.2 cm?/m? 16 - 28 cm?/m? Ascending Aorta Diameter 3.1 cm DOPPLER AV Peak Velocity 307.5 cm/s AV Peak Gradient 37.8 mmHg AV Mean Gradient 24.0 mmHg AV Velocity Time Integral 56.3 cm AI Peak Velocity 289.0 cm/s AI Peak Gradient 33.4 mmHg AI Pressure Half Time 493.0 ms LVOT Peak Velocity 152.0 cm/s LVOT Peak Gradient 9.2 mmHg LVOT Velocity Time Integral 34.3 cm LVOT Cardiac Index 4305.1 cm?/min?m? AV Area Cont Eq vti 1.7 cm? AV Area Cont Eq pk 1.4 cm? MV Area PHT 2.5 cm? Mitral E Point Velocity 85.9 cm/s Mitral A Point Velocity 110.0 cm/s Mitral E to A Ratio 0.8 LV E' Lateral Velocity 10.7 cm/s Mitral E to LV E' Lateral Ratio 8.0 LV E' Septal Velocity 10.0 cm/s Mitral E to LV E' Septal Ratio 8.6 TR Peak Velocity 293.7 cm/s TR Peak Gradient 34.5 mmHg PV Peak Velocity 289.0 cm/s PV Peak Gradient 33.4 mmHg RVOT Peak Velocity 129.0 cm/s FINDINGS Left Ventricle Normal left ventricular size, wall thickness, systolic function with no obvious regional wall motion abnormalities. There is grade I diastolic dysfunction of the left ventricle (impaired relaxation pattern). The left ventricular ejection fraction is normal, estimated at 55-60%. Right Ventricle The right ventricle is normal in size and systolic function. The estimated right ventricular systolic pressure, 35 mmHg. Left Atrium The left atrium is normal by two-dimensional, color flow and Doppler imaging with no structural abnormalities, no thrombus formation present. Right Atrium The right atrium is normal by two-dimensional imaging, color flow and Doppler imaging with no structural abnormalities, no thrombus formation present. Atrial Septum The interatrial septum appears normal with no evidence of a shunt. Aorta The aorta is normal by two-dimensional, color flow and Doppler interrogation. Mitral Valve Mild mitral regurgitation. Mild mitral annular calcification. Aortic Valve Moderate aortic valve stenosis, mean gradient 24 mmHg, TIFFANIE 1.7 cm?. Mild aortic valve regurgitation. Tricuspid Valve There is mild tricuspid valve regurgitation. Pulmonic Valve Trivial pulmonic valve regurgitation. Vessels The pulmonary artery appears normal. The inferior vena cava pulmonary and hepatic veins appear normal. Pericardium The pericardium is normal by two-dimensional imaging. There is no significant pericardial effusion. CONCLUSIONS indication: alchohol CM LV appears normal with EF 55-60% Diastolic Dysfunction I present. RV appears normal with RVSP of 35 mmHg. MV has mild MR & mild MAC AOC has Moderate & mild AI TV has mild TR Diana Du (Electronically Signed) Final Date: 28 April 2024 16:43
[2024-04-28 09:47] LABS: Hematocrit 23.8 % (41.0-53.0)
[2024-04-28 09:49] LABS: Hemoglobin 7.7 g/dL (13.5-16.0)
[2024-04-28] MEDS: PHYTONADIONE INJ 10 MG/ML AMP IV (10:05)
[2024-04-28] MEDS: ALBUMIN HUMAN 25% IVPB 25 GM/100 ML BTL IV (10:05)
--- NOTE | 2024-04-28 10:27 | PC.SS ---
Rounding: Plan for EGD
--- NOTE | 2024-04-28 10:58 | PC.SS ---
Benjamin Villarreal is a 59-year-old male admitted to [facility] for Acute GI Bleed. SS conducted bedside contact with the patient to complete initial assessment and to discuss discharge planning.? Patient confirmed demographic information. Patient identifies his life partner Cortney Wood as his DM. Phone number attached on FS for Cortney is her brother?s phone #. SS attempted to call number on FS. Per Cortney brother, he does not have his sister?s number but his does but she is currently at work. SS inquired if he call SS back when he gets this information. Pt reports not having his phone with him to provide phone number as this time. Pt reports being independent with his ADLS. Pt reports living with friends. Pts PCP is at [facility], he is unsure of name, as he does not go frequently. Pts pharmacy of choice is [facility] on [address]. Pt wishes to return home upon DC. No further needs identified.
--- NOTE | 2024-04-28 11:27 | ESPR_ITS ---
<Statement entered by Vaishali Monroy MD - 05/01/24 07:50> I reviewed above note and agree with findings and plans. I have also personally examined the patient with medicine team and went over assessment and plan with medical team including dental internship and resident physician. <Statement entered by Mikala Butler MD - 04/28/24 15:06> I discussed with and supervised my co-resident involved in the care of this patient. I agree with the assessment and plan as documented above. Patient seen and examined at bedside. He is awake, alert, resting comfortably. Not having active melena or hematemesis at time of examination. Vitals are stable. Labs significant for anemia at 5, was given 2 units of PRBC and Hb improved to 8.1. Leukocytosis noted. Chem panel shows hyperkalemia, AGMA with lactic acidosis as high as 10, JEANIE, and elevated AST and ALT that are unmeasurable. Working diagnosis is acute GIB in the setting of acute alcoholic hepatitis. For the GIB, will continue protonix and octreotide. He is on IV antibiotics for SBP prophylaxis in the setting of cirrhosis and history of esophageal bleed. For his alcoholic hepatitis, will give steroids. Will follow up on liver ultrasound to rule out portal vein thrombosis and follow up with CT of the abdomen. Will give IV albumin for his JEANIE. GI to see patient for EGD. Mikala Butler MD PGY-3 Documentation for date of: 04/28/24 Subjective Subjective Interval history: Patient was seen at bedside this morning. Overnight patient was transfused 2 PRBCs given that he came in with hemoglobin of 5.6. In the morning his hemoglobin was 8.1, but he had a episode of bloody bowel movements therefore repeat her hemoglobin did drop to 7.4. Will consider repeating hemoglobin if patient has similar episode of bloody bowel movements or bloody emesis. On assessment patient stated that he had been drinking since he was 12 years old and he has been drinking 7-8 beers daily for the past few months. Patient has liver enzymes significantly increased with AST above 1000 and ALT above 3300, therefore started patient on prednisolone as well as 100 g of albumin. Patient was thoroughly counseled on abstaining from alcohol given that at this time his liver is showing damage and he has an active bleeding which could be a variceal bleed for which she has some past medical history for this. He said that when he got out of the hospital at this time he would stop drinking and that he understood. Patient had no other complaints at this time. Still pending on EGD. Exam Vital Signs Temp Pulse Resp BP Pulse Ox O2 Del Method 97.9 F 84 17 116/49 L 95 Room Air 04/28/24 07:41 04/28/24 07:41 04/28/24 07:41 04/28/24 07:41 04/28/24 07:41 04/28/24 07:41 Narrative Exam General: A/O x3, no acute distress Eyes: PERRL, EOMI. Icteric, vision grossly intact. Ears: No ear pain, no ear discharge, Hearing grossly intact. Nose: No nasal discharge. Mouth/Throat: Dry mucous membranes, no redness, no lesions. Neck: Neck supple, non-tender, no cervical lymphadenopathy. Lungs: Clear WAYNE to auscultation and percussion, No accessory muscle use. Cardio: Normal S1/S2, regular rhythm, no murmurs, no JVD Abdomen: Soft, tenderness in RUQ, no palpable masses, peristalsis present, no guarding or rebound. Extremities: Symmetrical, no significant deformities, no peripheral edema , non-tender, peripheral pulses presents. Skin: No rashes, no lesions, warm to touch. Neuro: No focal neurological deficits. motor and sensory intact Psych: Cooperative, appropriate mood and effect. Objective Labs 04/28/24 12:16 04/28/24 08:13 Labs: Laboratory Results - last 24 hr 04/27/24 04/27/24 04/27/24 21:02 23:20 23:30 WBC 14.0 H RBC 2.17 L Hgb 5.6 L* Hct 17.7 L* MCV 82 MCH 25.8 MCHC 31.6 RDW Std Deviation 61.9 H Plt Count 94 L Neut % (Auto) 77 Lymph % (Auto) 13 Sandoval % (Auto) 9 Eos % (Auto) 0 Baso % (Auto) 0 Neut # (Auto) 10.7 H Lymph # (Auto) 1.9 Sandoval # (Auto) 1.2 H Eos # (Auto) 0.0 Baso # (Auto) 0.0 Immature Gran # (Auto) 0.16 H Absolute Nucleated RBC 0.03 H Immature Gran % 1 H Nucleated RBC % 0 Smear Path Review Sent to Pathologist PT 15.4 H INR 1.4 H APTT 26.1 VBG pH 7.29 L VBG pCO2 27 L VBG pO2 35 VBG O2 Sat (Maurisio) 52 L VBG Base Excess -12 L Sodium 142 Potassium 4.5 Chloride 107 Carbon Dioxide 13.8 L* Anion Gap 21 H BUN 22 Creatinine 1.6 H Estim Creat Clear Calc 44.9 L eGFR 49 L BUN/Creatinine Ratio [address] Glu mg/dL Hemoglobin A1c Calculated Osmolality 288 Lactic Acid 10.6 H* Calcium 7.9 L Corrected Calcium 8.9 Phosphorus Magnesium 2.6 Total Bilirubin 2.9 H AST 1305 H* ALT 667 H* Alkaline Phosphatase 97 Lactate Dehydrogenase 1904 H Troponin I 0.020 B-Natriuretic Peptide 24 Total Protein 5.2 L Albumin 2.8 L Globulin 2.4 Albumin/Globulin Ratio 1.2 Triglycerides Cholesterol LDL Cholesterol, Calc HDL Cholesterol Cholesterol/HDL Ratio Ur Collection Type Clean Catch Urine Color Colorless A Urine Clarity Clear Urine pH 6.5 Ur Specific Monroe 1.008 Urine Protein Negative Urine Glucose (UA) Negative Urine Ketones 2+ A Urine Blood Negative Urine Nitrite Negative Urine Bilirubin Negative Urine Urobilinogen (Auto) Negative Ur Leukocyte Esterase Negative Urine RBC 2 Urine WBC 1 Ur Squamous Epith Cells 0 Urine Bacteria None Urine Opiates Screen Negative Urine Fentanyl Screen Negative Ur Barbiturates Screen Negative U Amphetamin/Meth Scrn Negative U Benzodiazepines Scrn Negative U Cocaine Metab Screen Negative U Marijuana (THC) Screen Positive A Ethyl Alcohol 298.1 H Hepatitis A IgM Ab Hep Bs Antigen Hep B Core IgM Ab Hepatitis C Antibody Blood Type O Positive Antibody Screen NEGATIVE Crossmatch See Detail Blood Bank Wristband ID Yes 04/28/24 04/28/24 04/28/24 02:22 05:28 08:13 WBC 19.5 H D RBC 3.03 L Hgb 8.1 L D Hct 24.0 L MCV 79 L MCH 26.7 MCHC 33.8 RDW Std Deviation 52.1 H Plt Count 65 L D Neut % (Auto) 87 H Lymph % (Auto) 4 L Sandoval % (Auto) 7 Eos % (Auto) 0 Baso % (Auto) 0 Neut # (Auto) 17.0 H Lymph # (Auto) 0.9 L Sandoval # (Auto) 1.3 H Eos # (Auto) 0.0 Baso # (Auto) 0.0 Immature Gran # (Auto) 0.23 H Absolute Nucleated RBC 0.02 H Immature Gran % 1 H Nucleated RBC % 0 Smear Path Review PT 17.8 H INR 1.7 H APTT 27.9 VBG pH VBG pCO2 VBG pO2 VBG O2 Sat (Maurisio) VBG Base Excess Sodium 142 143 Potassium 5.6 H D 4.9 D Chloride 110 H 111 H Carbon Dioxide 15.6 L 15.5 L Anion Gap 16 17 H BUN 32 H 35 H Creatinine 1.5 H 1.6 H Estim Creat Clear Calc 47.9 L 44.9 L eGFR 53 L 49 L BUN/Creatinine Ratio 21 H 22 H Glucose 152 H [address] Glu mg/dL 146 H Hemoglobin A1c 6.7 H Calculated Osmolality 293 301 H Lactic Acid 10.1 H* 6.5 H* Calcium 7.1 L 7.5 L Corrected Calcium 8.1 L 8.7 Phosphorus 6.8 H 6.8 H Magnesium 2.4 Total Bilirubin 3.7 H D AST > 1000 H* ALT > 3300 H* Alkaline Phosphatase 100 Lactate Dehydrogenase Troponin I B-Natriuretic Peptide Total Protein 5.0 L Albumin 2.7 L 2.5 L Globulin 2.3 Albumin/Globulin Ratio 1.2 Triglycerides 84 Cholesterol 103 L LDL Cholesterol, Calc 48 HDL Cholesterol 38 L Cholesterol/HDL Ratio 2.7 L Ur Collection Type Urine Color Urine Clarity Urine pH Ur Specific Monroe Urine Protein Urine Glucose (UA) Urine Ketones Urine Blood Urine Nitrite Urine Bilirubin Urine Urobilinogen (Auto) Ur Leukocyte Esterase Urine RBC Urine WBC Ur Squamous Epith Cells Urine Bacteria Urine Opiates Screen Urine Fentanyl Screen Ur Barbiturates Screen U Amphetamin/Meth Scrn U Benzodiazepines Scrn U Cocaine Metab Screen U Marijuana (THC) Screen Ethyl Alcohol Hepatitis A IgM Ab Non Reactive Hep Bs Antigen Non Reactive Hep B Core IgM Ab Non Reactive Hepatitis C Antibody Non Reactive Blood Type Antibody Screen Crossmatch Blood Bank Wristband ID 04/28/24 08:26 WBC RBC Hgb 7.7 L Hct 23.8 L MCV MCH MCHC RDW Std Deviation Plt Count Neut % (Auto) Lymph % (Auto) Sandoval % (Auto) Eos % (Auto) Baso % (Auto) Neut # (Auto) Lymph # (Auto) Sandoval # (Auto) Eos # (Auto) Baso # (Auto) Immature Gran # (Auto) Absolute Nucleated RBC Immature Gran % Nucleated RBC % Smear Path Review PT INR APTT VBG pH VBG pCO2 VBG pO2 VBG O2 Sat (Maurisio) VBG Base Excess Sodium Potassium Chloride Carbon Dioxide Anion Gap BUN Creatinine Estim Creat Clear Calc eGFR BUN/Creatinine Ratio Glucose Estimated Ave Glu mg/dL Hemoglobin A1c Calculated Osmolality Lactic Acid Calcium Corrected Calcium Phosphorus Magnesium Total Bilirubin AST ALT Alkaline Phosphatase Lactate Dehydrogenase Troponin I B-Natriuretic Peptide Total Protein Albumin Globulin Albumin/Globulin Ratio Triglycerides Cholesterol LDL Cholesterol, Calc HDL Cholesterol Cholesterol/HDL Ratio Ur Collection Type Urine Color Urine Clarity Urine pH Ur Specific Monroe Urine Protein Urine Glucose (UA) Urine Ketones Urine Blood Urine Nitrite Urine Bilirubin Urine Urobilinogen (Auto) Ur Leukocyte Esterase Urine RBC Urine WBC Ur Squamous Epith Cells Urine Bacteria Urine Opiates Screen Urine Fentanyl Screen Ur Barbiturates Screen U Amphetamin/Meth Scrn U Benzodiazepines Scrn U Cocaine Metab Screen U Marijuana (THC) Screen Ethyl Alcohol Hepatitis A IgM Ab Hep Bs Antigen Hep B Core IgM Ab Hepatitis C Antibody Blood Type Antibody Screen Crossmatch Blood Bank Wristband ID ABG Interpretation ABG results: 04/27/24 23:20 VBG pH 7.29 L VBG pCO2 27 L VBG pO2 35 VBG Base Excess -12 L Quality Measures Quality Measures VTE prophylaxis Assessment & Plan Assessment Current Active Medications: Generic Name Dose Route Start Last Admin Trade Name Yuly PRN Reason Stop Dose Admin Acetaminophen 325 mg 04/27/24 22:48 Acetaminophen 325 Mg Tablet PO 05/27/24 22:47 Q6H PRN Pain (1-3) & Fever >101.5 Dextrose 25 ml 04/28/24 01:59 Dextrose 50%-Water Inj 50 Ml Syringe IV 05/28/24 01:58 Q15MIN PRN BG 50-70 responsive npo pt Dextrose 50 ml 04/28/24 01:59 Dextrose 50%-Water Inj 50 Ml Syringe IV 05/28/24 01:58 Q15MIN PRN BG <50 OR BG <70 & pt unresponsive Glucagon 1 mg 04/28/24 01:59 Glucagon Inj 1 Mg Vial IM Q15MIN PRN BG <70, and no IV access Octreotide Acetate 1,000 mcg/ 102 mls @ 5.1 mls/hr 04/27/24 20:57 04/27/24 21:17 Sodium Chloride IV 04/28/24 16:56 50 mcg/hr .Q20H ONE 5.1 mls/hr Administration Protocol 50 MCG/HR Pantoprazole Sodium 80 mg in 100 mls @ 10 mls/hr 04/27/24 20:57 04/28/24 05:48 Protonix/Ns 80mg Iv Premix IV 04/30/24 18:56 10 mls/hr Q10H SREE Administration Ceftriaxone Sodium 1,000 mg/ 50 mls @ 100 mls/hr 04/28/24 21:00 Sodium Chloride IV 05/05/24 20:59 HS SREE Octreotide Acetate 1,000 mcg/ 102 mls @ 5.1 mls/hr 04/28/24 16:57 Sodium Chloride IV 05/02/24 22:55 .Q20H SREE Protocol 50 MCG/HR Albumin Human 25 gm in 100 mls @ 100 mls/hr 04/28/24 09:41 04/28/24 10:05 Albuminar-25 Ivpb IV 05/01/24 09:40 100 mls/hr QDAY SREE Administration Insulin Human Lispro 0 unit 04/28/24 06:00 04/28/24 05:47 Insulin Lispro (Admelog) 1 Unit/0.01 Ml Unit SC 05/28/24 05:59 1 unit Q6HR SREE Administration Protocol Lorazepam 0.5 mg 04/27/24 22:58 Lorazepam 2 Mg/Ml Vial IV 05/02/24 22:57 Q4H PRN CIWA SCORE 8-13 Lorazepam 2 mg 04/27/24 22:58 Lorazepam 2 Mg/Ml Vial IV 05/02/24 22:57 Q4H PRN CIWA SCORE 20-25 Lorazepam 2 mg 04/27/24 22:58 Lorazepam 2 Mg/Ml Vial IVP X1 PRN Breakthrough Agitation Lorazepam 1 mg 04/27/24 22:58 Lorazepam 2 Mg/Ml Vial IV 05/02/24 22:57 Q4H PRN CIWA SCORE 14-19 Ondansetron HCl 4 mg 04/27/24 22:48 04/28/24 07:54 Ondansetron Inj 2 Mg/Ml Inj 2 Ml IV 05/27/24 22:47 4 mg Q6H PRN Administration NAUSEA OR VOMITING Protocol Prednisone 40 mg 04/28/24 09:00 04/28/24 09:40 Prednisone 20 Mg Tablet PO 05/05/24 07:58 40 mg QDAY RSEE Administration Plan 57-year-old male with past medical history of alcohol use disorder, esophageal varices, hypertension, hyperlipidemia, and DM2 was admitted to the hospital due to acute blood loss anemia likely in the setting of GI bleed. #Acute blood loss anemia #GI bleed #Hx of esophageal varices #Hx of alcohol use disorder ?Patient came in with complaints of bloody emesis as well as bloody stools ? Initial hemoglobin was 5.6 for which she required 2 units of PRBC. ? On past EGD patient was found to have an esophageal varices which was banded in 2022 ? Patient admitted to using alcohol every day and drinking around 7-8 beers Plan: ? Continue octreotide drip [04/27/2024?] ? Continue Protonix ? IV Rocephin 1 g daily [04/27/2024?] ?CIWA protocol ordered ? Bleeding precautions ? Will transfuse hemoglobin less than 7 ? GI consulted, pursue recommendations ? N.p.o. for possible EGD #Acute liver failure likely in the setting of #Alcoholic hepatitis #Coagulopathy #Hyperbilirubinemia #Thrombocytopenia ? Acute liver failure likely in the setting of alcohol use ? MELD NA score of 21 point indicating 7 to 10% mortality ? Child-Garcia score of 10 points ?Madrey score of 35 points indicating good prognosis with steroids Plan: ? Start prednisolone 40 mg daily ? Continue octreotide drip ? Continue Protonix ?Vitamin K 10 mg x 1 ?Ordered liver ultrasound and abdomen/pelvis CT ? Will continue to monitor #JEANIE #Hypoalbuminemia ? Patient has a creatinine of 1.6 this morning from his baseline of 0.6 ? Patient has albumin of 2.5 today ? Patient could be developing hepatorenal syndrome, but could be likely prerenal JEANIE again in the blood loss. Plan: ? 100 g albumin daily ? Gentle IV fluids ?Avoid nephrotoxic agents ? Renally dose medication ? Will continue to monitor #Hyperkalemia, resolved ? Patient's potassium this morning was 5.6 and EKG did show some peaked T waves ?Repeat potassium was 4.9 Plan: ? Calcium 1 g x 1, regular insulin 5 units x 1, 1 amp dextrose ?Will continue to monitor #High anion gap metabolic acidosis #Lactic acidosis ? Patient's anion gap 17 and bicarb 15.5 this is likely in the setting of lactic acidosis with lactic acid of 5.2 this morning ? This is most likely due to impaired clearance of lactic acid Plan: ? Will continue to monitor #Concern for CHF ? Given patient's history of alcohol use there is concern for dilated cardiomyopathy Plan: ? Will order echo to assess patient's ejection fraction #DM2 ? A1c 6.7% on 04/2024 Plan: ? ISS ? Hypoglycemia protocol ordered Disposition: Pending EGD Diet: NPO GI prophylaxis: protonix DVT prophylaxis: SCDs Code: Full code Case disclosed with Attending Dr. Monroy and My senior Dr. Butler PGY3. Jesse Matos PGY1
[2024-04-28 11:41] LABS: Reflex Lactate? Y
[2024-04-28 12:08] LABS: Slide Review Platelets confirmed
[2024-04-28 12:32] LABS: Hematocrit 22.6 % (41.0-53.0)
[2024-04-28 12:44] LABS: Hemoglobin 7.4 g/dL (13.5-16.0)
[2024-04-28 12:49] LABS: Lactic Acid, 3 HR 5.2 mMol/L (0.4-2.0)
[2024-04-28] MEDS: SODIUM CHLORIDE 0.9% 1000 ML 1,000 ML 80 ML IV (15:00)
[2024-04-28] MEDS: OCTREOTIDE ACET INJ 1,000 MCG in SODIUM CHLORIDE 0.9% 100 ML 5.1 MCG IV (17:18)
--- NOTE | 2024-04-28 20:37 | SUR.PHASEI ---
pt received from OR in recovery bay 5. pt asleep but responds to voice, breathing unlabored on room air. v/s stable. report received from Theresa FOWLER.
--- NOTE | 2024-04-28 21:07 | SUR.PHASEI ---
pt asleep but responds to voice, breathing unlabored on room air. v/s stable. report called to Fatmata Arauz. pt will be transferred back to room at this time.
[2024-04-29] VITALS (18 sets, daily range): BP systolic 141–173; BP diastolic 62–86; PULSE 53–96; RESP 14–96; TEMP 36.1–37.6; O2SAT 95–99; BMI 31.4
[2024-04-29] MEDS: METOCLOPRAMIDE INJ 5 MG/ML VIAL 2 ML IVP ×4 (00:10→17:40)
[2024-04-29] MEDS: PANTOPRAZOLE/NS 80MG IV PREMIX 80 MG/100 ML BAG 10 MG IV ×2 (05:27→15:06)
[2024-04-29 05:54] LABS: Basophils % (Auto) 0 % (0-2.5); Eosinophils % (Auto) 0 % (0-10); Hematocrit 20.6 % (41.0-53.0); Immature Granulocytes % (Auto) 0 % (0-0); Immature Granulocytes Auto 0.02 Thou/mm3 (0.00-0.00); Lymphocytes # (Auto) 0.3 Thou/mm3 (1.0-4.8); Lymphocytes % (Auto) 4 % (10-50); Mean Corpuscular Hemoglobin 26.2 pg (25.0-35.0); Mean Corpuscular Volume 82 fL (80-100); Monocytes # (Auto) 0.2 Thou/mm3 (0.0-0.8); Monocytes % (Auto) 2 % (0-12); Neutrophils # (Auto) 5.8 Thou/mm3 (1.8-7.7); Neutrophils % (Auto) 93 % (37-80); Nucleated Red Blood Cell % 0 /100 WBC (0); RDW Standard Deviation 55.6 fL (35.1-43.9); Red Blood Count 2.52 Miln/mm3 (4.50-5.90); White Blood Count 6.2 Thou/mm3 (3.8-10.6)
[2024-04-29 06:00] LABS: Hemoglobin 6.6 g/dL (13.5-16.0); Platelet Count 31 Thou/mm3 (140-440)
[2024-04-29 06:01] LABS: Slide Review Platelets confirmed
[2024-04-29 06:13] LABS: INR 1.6 (0.9-1.3); Partial Thromboplastin Time 29.2 Seconds (22.0-36.0); Prothrombin Time 16.7 Seconds (9.0-12.2)
[2024-04-29 06:50] LABS: Alanine Aminotransferase 2336 U/L (10-49); Albumin, Serum 2.7 gm/dL (3.5-5.0); Albumin/Globulin Ratio 1.2 (1.2-2.2); Alkaline Phosphatase 98 U/L (46-116); Anion Gap 7 (7-16); Aspartate Amino Transferase 4550 U/L (0-34); BUN/Creatinine Ratio 34 Ratio (12-20); Blood Urea Nitrogen 34 mg/dL (9-23); Calcium 7.7 mg/dL (8.3-10.6); Calcium (Corrected) 8.7 mg/dL (8.5-10.1); Carbon Dioxide 21.8 mMol/L (20.0-31.0); Chloride 118 mMol/L (98-107); Globulin 2.2 gm/dL (2.3-3.5); Glucose 163 mg/dL (74-106); Magnesium 2.2 mg/dL (1.6-2.6); Osmolality,Calculated 304 (275-295); Phosphorous 3.1 mg/dL (2.4-5.1); Potassium 4.3 mMol/L (3.4-5.1); Sodium 147 mMol/L (136-145); Total Protein 4.9 gm/dL (5.7-8.2); eGFR > 60 See Note
[2024-04-29] MEDS: ALBUMIN HUMAN 25% IV (08:34)
[2024-04-29] MEDS: prednisoLONE LIQD 15 MG/5 ML UDC 40 MG PO (08:34)
[2024-04-29 09:42] LABS: Path Review Blood Smear Sent to Pathologist
--- NOTE | 2024-04-29 10:51 | PC.SS ---
Rounding: Pt to complete 3 more days of Octreiotide Drip
--- NOTE | 2024-04-29 11:21 | ESPR_ITS ---
<Statement entered by Vaishali Monroy MD - 05/01/24 07:51> I reviewed above note and agree with findings and plans. I have also personally examined the patient with medicine team and went over assessment and plan with medical team including senior internal auditor and resident physician. <Statement entered by Mikala Butler MD - 04/29/24 14:54> I discussed with and supervised my co-resident involved in the care of this patient. I agree with the assessment and plan as documented above. EGD showed esophageal varices that were banded, and erythematous mucosa in the stomach. Hb stable after transfusion. Will continue octreotdride drip and protonix, and IV antibiotics for SBP prophylaxis. LFTs improving, but still very high. Patient denies hallucinations at this time, but starting to have tremors. Will continue CIWA with IV ativan. Holding off phenobarbital and librium due to acute alcoholic hepatitis. Mikala Butler MD PGY-3 Documentation for date of: 04/29/24 Subjective Subjective Interval history: Patient was seen at bedside this morning. No overnight events. Patient had EGD done yesterday that showed grade 3 esophageal varices which were banded as well as erythematous mucosa in the stomach. Patient's hemoglobin this morning was 6.6 and platelets 31 therefore patient will be transfused 1 unit of PRBCs and 1 unit of platelets. Will continue with octreotide drip for completion of 5 days and will give albumin 100 g today and will monitor again tomorrow. Patient did seem more tremulous today. No other complaints at this time. Again reiterated the importance of abstaining from alcohol use to the patient. Exam Vital Signs Temp Pulse Resp BP Pulse Ox O2 Del Method O2 Flow Rate 99 F 68 16 146/72 H 98 Room Air 3 04/29/24 11:11 04/29/24 11:11 04/29/24 11:11 04/29/24 11:11 04/29/24 11:11 04/29/24 08:00 04/28/24 20:30 Narrative Exam General: A/O x3, no acute distress, tremulous Eyes: PERRL, EOMI. Icteric, vision grossly intact. Ears: No ear pain, no ear discharge, Hearing grossly intact. Nose: No nasal discharge. Mouth/Throat: Dry mucous membranes, no redness, no lesions. Neck: Neck supple, non-tender, no cervical lymphadenopathy. Lungs: Clear WAYNE to auscultation and percussion, No accessory muscle use. Cardio: Normal S1/S2, regular rhythm, no murmurs, no JVD Abdomen: Soft,non tender, no palpable masses, peristalsis present, no guarding or rebound. Extremities: Symmetrical, no significant deformities, no peripheral edema , non-tender, peripheral pulses presents. Skin: No rashes, no lesions, warm to touch. Neuro: No focal neurological deficits. motor and sensory intact Objective Labs 04/29/24 05:19 04/29/24 05:19 Labs: Laboratory Results - last 24 hr 04/27/24 04/28/24 04/28/24 21:02 05:28 12:16 WBC RBC Hgb 7.4 L Hct 22.6 L MCV MCH MCHC RDW Std Deviation Plt Count Neut % (Auto) Lymph % (Auto) [place] % (Auto) Eos % (Auto) Baso % (Auto) Neut # (Auto) Lymph # (Auto) [place] # (Auto) Eos # (Auto) Baso # (Auto) Immature Gran # (Auto) Absolute Nucleated RBC Immature Gran % Nucleated RBC % Smear Path Review PT INR APTT Sodium Potassium Chloride Carbon Dioxide Anion Gap BUN Creatinine Estim Creat Clear Calc eGFR BUN/Creatinine Ratio Glucose Calculated Osmolality Lactic Acid 5.2 H* Calcium Corrected Calcium Phosphorus Magnesium Total Bilirubin AST ALT Alkaline Phosphatase Total Protein Albumin Globulin Albumin/Globulin Ratio Misc Test Result Platelets confirmed Blood Type O Positive Antibody Screen NEGATIVE Crossmatch See Detail Blood Bank Wristband ID Yes Blood Bank Comment TNP 04/29/24 05:19 WBC 6.2 D RBC 2.52 L Hgb 6.6 L* Hct 20.6 L* MCV 82 MCH 26.2 MCHC 32.0 RDW Std Deviation 55.6 H Plt Count 31 L D Neut % (Auto) 93 H Lymph % (Auto) 4 L [place] % (Auto) 2 Eos % (Auto) 0 Baso % (Auto) 0 Neut # (Auto) 5.8 Lymph # (Auto) 0.3 L [place] # (Auto) 0.2 Eos # (Auto) 0.0 Baso # (Auto) 0.0 Immature Gran # (Auto) 0.02 H Absolute Nucleated RBC 0.00 Immature Gran % 0 Nucleated RBC % 0 Smear Path Review Sent to Pathologist PT 16.7 H INR 1.6 H APTT 29.2 Sodium 147 H Potassium 4.3 D Chloride 118 H Carbon Dioxide 21.8 Anion Gap 7 BUN 34 H Creatinine 1.0 D Estim Creat Clear Calc 64.0 eGFR > 60 BUN/Creatinine Ratio 34 H Glucose 163 H D Calculated Osmolality 304 H Lactic Acid Calcium 7.7 L Corrected Calcium 8.7 Phosphorus 3.1 Magnesium 2.2 Total Bilirubin 4.0 H AST 4550 H* ALT 2336 H* Alkaline Phosphatase 98 Total Protein 4.9 L Albumin 2.7 L Globulin 2.2 L Albumin/Globulin Ratio 1.2 Misc Test Result Platelets confirmed Blood Type Antibody Screen Crossmatch Blood Bank Wristband ID Blood Bank Comment ABG Interpretation ABG results: 04/27/24 23:20 VBG pH 7.29 L VBG pCO2 27 L VBG pO2 35 VBG Base Excess -12 L Quality Measures Quality Measures VTE prophylaxis Assessment & Plan Assessment Current Active Medications: Generic Name Dose Route Start Last Admin Trade Name Freq PRN Reason Stop Dose Admin Acetaminophen 325 mg 04/27/24 22:48 Acetaminophen 325 Mg Tablet PO 05/27/24 22:47 Q6H PRN Pain (1-3) & Fever >101.5 Dextrose 25 ml 04/28/24 01:59 Dextrose 50%-Water Inj 50 Ml Syringe IV 05/28/24 01:58 Q15MIN PRN BG 50-70 responsive npo pt Dextrose 50 ml 04/28/24 01:59 Dextrose 50%-Water Inj 50 Ml Syringe IV 05/28/24 01:58 Q15MIN PRN BG <50 OR BG <70 & pt unresponsive Glucagon 1 mg 04/28/24 01:59 Glucagon Inj 1 Mg Vial IM Q15MIN PRN BG <70, and no IV access Pantoprazole Sodium 80 mg in 100 mls @ 10 mls/hr 04/27/24 20:57 04/29/24 05:27 Protonix/Ns 80mg Iv Premix IV 04/30/24 18:56 10 mls/hr Q10H SREE Administration Ceftriaxone Sodium 1,000 mg/ 50 mls @ 100 mls/hr 04/28/24 21:00 04/28/24 22:54 Sodium Chloride IV 05/05/24 20:59 Infused HS SREE Infusion Octreotide Acetate 1,000 mcg/ 102 mls @ 5.1 mls/hr 04/28/24 16:57 04/28/24 17:18 Sodium Chloride IV 05/02/24 22:55 50 mcg/hr .Q20H SREE 5.1 mls/hr Administration Protocol 50 MCG/HR Albumin Human 100 gm in 400 mls @ 100 mls/hr 04/29/24 09:00 04/29/24 08:34 Albuminar-25 Ivpb IV 05/02/24 12:59 100 mls/hr QDAY SREE Administration Insulin Human Lispro 0 unit 04/28/24 06:00 04/29/24 05:28 Insulin Lispro (Admelog) 1 Unit/0.01 Ml Unit SC 05/28/24 05:59 Not Given Q6HR SREE Protocol Lorazepam 0.5 mg 04/27/24 22:58 Lorazepam 2 Mg/Ml Vial IV 05/02/24 22:57 Q4H PRN CIWA SCORE 8-13 Lorazepam 2 mg 04/27/24 22:58 Lorazepam 2 Mg/Ml Vial IV 05/02/24 22:57 Q4H PRN CIWA SCORE 20-25 Lorazepam 2 mg 04/27/24 22:58 Lorazepam 2 Mg/Ml Vial IVP X1 PRN Breakthrough Agitation Lorazepam 1 mg 04/27/24 22:58 Lorazepam 2 Mg/Ml Vial IV 05/02/24 22:57 Q4H PRN CIWA SCORE 14-19 Metoclopramide HCl 5 mg 04/29/24 00:00 04/29/24 05:26 Metoclopramide Inj 5 Mg/Ml Vial 2 Ml IVP 05/29/24 00:00 5 mg Q6HR SREE Administration Protocol Ondansetron HCl 4 mg 04/27/24 22:48 04/28/24 07:54 Ondansetron Inj 2 Mg/Ml Inj 2 Ml IV 05/27/24 22:47 4 mg Q6H PRN Administration NAUSEA OR VOMITING Protocol Prednisolone Sodium Phosphate 40 mg 04/29/24 09:00 04/29/24 08:34 Prednisolone Liqd 15 Mg/5 Ml Udc PO 05/29/24 08:59 40 mg QAM SREE Administration Plan 57-year-old male with past medical history of alcohol use disorder, esophageal varices, hypertension, hyperlipidemia, and DM2 was admitted to the hospital due to acute blood loss anemia likely in the setting of GI bleed. #Acute blood loss anemia #GI bleed #Grade 3 esophageal varices s/p banded #Hx of alcohol use disorder ?Patient came in with complaints of bloody emesis as well as bloody stools ? Initial hemoglobin was 5.6 for which he required 2 units of PRBC. ? On past EGD patient was found to have an esophageal varices which was banded in 2022 ? Patient admitted to using alcohol every day and drinking around 7-8 beers - EGD done yesterday that showed grade 3 esophageal varices which were banded as well as erythematous mucosa in the stomach. -Hgb 6.6 today will transfuse 1 PRBC and 1 platelets Plan: - Transfuse 1 PRBC and 1 platelet ? Continue octreotide drip [04/27/2024?] ? Continue Protonix ? IV Rocephin 1 g daily [04/27/2024?] ?CIWA protocol ordered ? Bleeding precautions ? Will transfuse hemoglobin less than 7 ? GI consulted, appreciate recommendations #Acute liver failure likely in the setting of #Alcoholic hepatitis #Coagulopathy #Hyperbilirubinemia #Thrombocytopenia ? Acute liver failure likely in the setting of alcohol use ? Initial MELD NA score of 21 point indicating 7 to 10% mortality ? Initial Child-Garcia score of 10 points ? Initial Madrey score of 35 points indicating good prognosis with steroids Plan: -Transfuse 1 unit of platelets ? Continue prednisolone 40 mg daily ? Continue octreotide drip ? Continue Protonix ? Will continue to monitor #JEANIE, improving #Hypoalbuminemia ? Patient has a creatinine of 1 this morning from his baseline of 0.6 ? Patient has albumin of 2.7 today ? Patient could be developing hepatorenal syndrome, but could be likely prerenal JEANIE again in the blood loss. Plan: ? 100 g albumin daily ?Avoid nephrotoxic agents ? Renally dose medication ? Will continue to monitor #High anion gap metabolic acidosis, improving #Lactic acidosis ? Patient's anion gap 17 and bicarb 15.5 this is likely in the setting of lactic acidosis ? This is most likely due to impaired clearance of lactic acid Plan: ? Will continue to monitor #HFpEF (55-60%) ? Given patient's history of alcohol use there is concern for dilated cardiomyopathy - Echo showed EF 55-60% Plan: - Will consider GDMT upon DC #DM2 ? A1c 6.7% on 04/2024 Plan: ? ISS ? Hypoglycemia protocol ordered #Hyperkalemia, resolved Disposition: Continue Octeotride and protonix Diet: clear liquid GI prophylaxis: protonix DVT prophylaxis: SCDs Code: Full code Case disclosed with Attending Dr. Monroy and My senior Dr. Butler PGY3. Jesse Matos PGY1
[2024-04-29] MEDS: INSULIN LISPRO (AdmeLOG) 1 UNIT/0.01 ML UNIT SC ×2 (11:55→17:40)
[2024-04-29] MEDS: OCTREOTIDE ACET INJ 1,000 MCG in SODIUM CHLORIDE 0.9% 100 ML 5.1 MCG IV (15:10)
[2024-04-29 18:10] LABS: Hematocrit 20.2 % (41.0-53.0)
[2024-04-29 18:26] LABS: Hemoglobin 6.6 g/dL (13.5-16.0)
[2024-04-29] MEDS: cefTRIAXone 1,000 MG in SODIUM CHLORIDE 0.9% (Popper) 50 ML 100 MG IV (20:41)
[2024-04-29] MEDS: PHYTONADIONE INJ 10 MG/ML AMP SC (21:54)
--- NOTE | 2024-04-29 22:04 | PD.IMPROG ---
Documentation for date of: 04/29/24 Subjective Subjective Interval history: Patient evaluated hemoglobin hematocrit down to 6.6 and 18 Pro time INR 1.6 platelet count is 31,000 total bilirubin 4.0 AST 4550 and ALT 2336 and alk phos of 98 Exam Vital Signs Temp Pulse Resp BP Pulse Ox O2 Del Method O2 Flow Rate 97.6 F 61 16 168/83 H 97 Room Air 3 04/29/24 20:42 04/29/24 20:42 04/29/24 20:42 04/29/24 20:42 04/29/24 20:42 04/29/24 20:00 04/28/24 20:30 Objective Labs 04/29/24 17:47 04/29/24 05:19 Labs: Laboratory Results - last 24 hr 04/27/24 04/29/24 04/29/24 21:02 05:19 17:47 WBC 6.2 D RBC 2.52 L Hgb 6.6 L* 6.6 L* Hct 20.6 L* 20.2 L* MCV 82 MCH 26.2 MCHC 32.0 RDW Std Deviation 55.6 H Plt Count 31 L D Neut % (Auto) 93 H Lymph % (Auto) 4 L [place] % (Auto) 2 Eos % (Auto) 0 Baso % (Auto) 0 Neut # (Auto) 5.8 Lymph # (Auto) 0.3 L [place] # (Auto) 0.2 Eos # (Auto) 0.0 Baso # (Auto) 0.0 Immature Gran # (Auto) 0.02 H Absolute Nucleated RBC 0.00 Immature Gran % 0 Nucleated RBC % 0 Smear Path Review Sent to Pathologist PT 16.7 H INR 1.6 H APTT 29.2 Sodium 147 H Potassium 4.3 D Chloride 118 H Carbon Dioxide 21.8 Anion Gap 7 BUN 34 H Creatinine 1.0 D Estim Creat Clear Calc 64.0 eGFR > 60 BUN/Creatinine Ratio 34 H Glucose 163 H D Calculated Osmolality 304 H Calcium 7.7 L Corrected Calcium 8.7 Phosphorus 3.1 Magnesium 2.2 Total Bilirubin 4.0 H AST 4550 H* ALT 2336 H* Alkaline Phosphatase 98 Total Protein 4.9 L Albumin 2.7 L Globulin 2.2 L Albumin/Globulin Ratio 1.2 Misc Test Result Platelets confirmed Blood Type O Positive Antibody Screen NEGATIVE Crossmatch See Detail Blood Bank Wristband ID Yes Blood Bank Comment PLATP Ready Impressions Impression: Acute hypoxic hepatitis acute anemia blood loss Thrombocytopenia Coagulopathy Continue current management I agree with the platelet transfusion and packed transfusion continue octreotide ABG Interpretation ABG results: 04/27/24 23:20 VBG pH 7.29 L VBG pCO2 27 L VBG pO2 35 VBG Base Excess -12 L Assessment & Plan A&P Narrative # Hematemesis # Hematochezia in the setting of chronic liver disease secondary to alcohol Plan Case discussed with the emergency room physician billing and accounting staff assistant Serial CBC Octreotide 50 mcg IV push and 50 mcg/h continuous infusion Protonix drip at 8 mg/h N.p.o. Consent obtained for fiberoptic esophagogastroduodenoscopy with possible therapeutic intervention under intravenous moderate sedation and scheduled Prognosis is guarded Advised the patient to be completely abstinent from alcohol otherwise the prognosis is much worse Time Spent With Patient Time: Total time spent is greater than 50% in coordination of care (as documented) at patient's floor/unit and/or counseling patient:
[2024-04-30] VITALS (15 sets, daily range): BP systolic 146–181; BP diastolic 60–82; PULSE 5–86; RESP 14–98; TEMP 36.1–37.6; O2SAT 96–100; BMI 31.1; BMI 31.0
[2024-04-30] MEDS: METOCLOPRAMIDE INJ 5 MG/ML VIAL 2 ML IVP ×4 (00:26→17:33)
[2024-04-30] MEDS: PANTOPRAZOLE/NS 80MG IV PREMIX 80 MG/100 ML BAG 10 MG IV ×2 (02:01→12:00)
[2024-04-30] MEDS: hydrALAZINE INJ 20 MG/ML VIAL 10 MG IV (02:49)
[2024-04-30 05:54] LABS: Basophils % (Auto) 0 % (0-2.5); Eosinophils % (Auto) 0 % (0-10); Hematocrit 24.1 % (41.0-53.0); Immature Granulocytes % (Auto) 1 % (0-0); Immature Granulocytes Auto 0.04 Thou/mm3 (0.00-0.00); Lymphocytes # (Auto) 0.8 Thou/mm3 (1.0-4.8); Lymphocytes % (Auto) 14 % (10-50); Mean Corpuscular HGB Conc 33.2 g/dl (31.0-37.0); Mean Corpuscular Hemoglobin 27.8 pg (25.0-35.0); Mean Corpuscular Volume 84 fL (80-100); Monocytes # (Auto) 0.3 Thou/mm3 (0.0-0.8); Monocytes % (Auto) 6 % (0-12); Neutrophils # (Auto) 4.4 Thou/mm3 (1.8-7.7); Neutrophils % (Auto) 79 % (37-80); Nucleated Red Blood Cell % 0 /100 WBC (0); RDW Standard Deviation 50.5 fL (35.1-43.9); Red Blood Count 2.88 Miln/mm3 (4.50-5.90); White Blood Count 5.6 Thou/mm3 (3.8-10.6)
[2024-04-30 06:06] LABS: Platelet Count 39 Thou/mm3 (140-440)
[2024-04-30 06:20] LABS: Slide Review Platelets confirmed
[2024-04-30 06:26] LABS: INR 1.5 (0.9-1.3); Partial Thromboplastin Time 28.4 Seconds (22.0-36.0); Prothrombin Time 16.1 Seconds (9.0-12.2)
[2024-04-30 06:35] LABS: Alanine Aminotransferase 1248 U/L (10-49); Albumin, Serum 3.6 gm/dL (3.5-5.0); Albumin/Globulin Ratio 1.7 (1.2-2.2); Alkaline Phosphatase 82 U/L (46-116); Anion Gap 12 (7-16); Aspartate Amino Transferase 1211 U/L (0-34); BUN/Creatinine Ratio 27 Ratio (12-20); Bilirubin,Total 6.9 mg/dL (0.3-1.2); Blood Urea Nitrogen 19 mg/dL (9-23); Calcium 8.7 mg/dL (8.3-10.6); Carbon Dioxide 21.9 mMol/L (20.0-31.0); Chloride 111 mMol/L (98-107); Creatinine (Component) 0.7 mg/dL (0.6-1.3); Estimated Creatinine Clearance 91.1 mL/min (>60); Globulin 2.1 gm/dL (2.3-3.5); Glucose 131 mg/dL (74-106); Osmolality,Calculated 292 (275-295); Phosphorous 1.3 mg/dL (2.4-5.1); Potassium 3.1 mMol/L (3.4-5.1); Sodium 145 mMol/L (136-145); Total Protein 5.7 gm/dL (5.7-8.2); eGFR > 60 See Note
[2024-04-30] MEDS: POTASSIUM CHLORIDE 20 mEq TABCR 40 MEQ PO (07:41)
[2024-04-30] MEDS: POTASSIUM PHOS 22.5 MMOL in SODIUM CHLORIDE 0.9% 500 ML 500 ML 82.778 MMOL IV (08:15)
[2024-04-30] MEDS: PHYTONADIONE INJ 10 MG/ML AMP SC (08:15)
[2024-04-30] MEDS: prednisoLONE LIQD 15 MG/5 ML UDC 40 MG PO (08:15)
--- NOTE | 2024-04-30 09:42 | ESPR_ITS ---
<Statement entered by Vaishali Monroy MD - 05/02/24 13:23> I reviewed above note and agree with findings and plans. I have also personally examined the patient with medicine team and went over assessment and plan with medical team including healthcare administration internship and resident physician. Documentation for date of: 04/30/24 Subjective Subjective Interval history: Patient was seen at bedside this morning. No overnight events. Patient got transfused 1 FFP and 1 platelets overnight. Patient has not had any bowel movements today or yesterday. He is feeling better and his liver function is slightly improving with AST 1211 and ALT 1248 from 4550 and 2336 respectively. Patient's albumin also increased to 3.6 therefore we will discontinue albumin at this time. No other complaints at this time. Will keep patient in the current management. Exam Vital Signs Temp Pulse Resp BP Pulse Ox O2 Del Method O2 Flow Rate 98.4 F 53 L 14 146/60 H 99 Room Air 3 04/30/24 08:00 04/30/24 08:00 04/30/24 08:00 04/30/24 08:00 04/30/24 08:00 04/30/24 08:00 04/28/24 20:30 Narrative Exam General: A/O x3, no acute distress, tremulous Eyes: PERRL, EOMI. Icteric, vision grossly intact. Ears: No ear pain, no ear discharge, Hearing grossly intact. Nose: No nasal discharge. Mouth/Throat: Dry mucous membranes, no redness, no lesions. Neck: Neck supple, non-tender, no cervical lymphadenopathy. Lungs: Clear WAYNE to auscultation and percussion, No accessory muscle use. Cardio: Normal S1/S2, regular rhythm, no murmurs, no JVD Abdomen: Soft,non tender, no palpable masses, peristalsis present, no guarding or rebound. Extremities: Symmetrical, no significant deformities, no peripheral edema , non-tender, peripheral pulses presents. Skin: No rashes, no lesions, warm to touch. Neuro: No focal neurological deficits. motor and sensory intact Objective Labs 04/30/24 05:23 04/30/24 05:23 Labs: Laboratory Results - last 24 hr 04/27/24 04/29/24 04/29/24 21:02 05:19 17:47 WBC RBC Hgb 6.6 L* Hct 20.2 L* MCV MCH MCHC RDW Std Deviation Plt Count Neut % (Auto) Lymph % (Auto) [place] % (Auto) Eos % (Auto) Baso % (Auto) Neut # (Auto) Lymph # (Auto) [place] # (Auto) Eos # (Auto) Baso # (Auto) Immature Gran # (Auto) Absolute Nucleated RBC Immature Gran % Nucleated RBC % Smear Path Review Sent to Pathologist PT INR APTT Sodium Potassium Chloride Carbon Dioxide Anion Gap BUN Creatinine Estim Creat Clear Calc eGFR BUN/Creatinine Ratio Glucose Calculated Osmolality Calcium Corrected Calcium Phosphorus Magnesium Total Bilirubin AST ALT Alkaline Phosphatase Total Protein Albumin Globulin Albumin/Globulin Ratio Misc Test Result Blood Type O Positive Antibody Screen NEGATIVE Crossmatch See Detail Blood Bank Wristband ID Yes Blood Bank Comment FFP Ready 04/30/24 05:23 WBC 5.6 RBC 2.88 L Hgb 8.0 L D Hct 24.1 L MCV 84 MCH 27.8 MCHC 33.2 RDW Std Deviation 50.5 H Plt Count 39 L D Neut % (Auto) 79 Lymph % (Auto) 14 [place] % (Auto) 6 Eos % (Auto) 0 Baso % (Auto) 0 Neut # (Auto) 4.4 Lymph # (Auto) 0.8 L [place] # (Auto) 0.3 Eos # (Auto) 0.0 Baso # (Auto) 0.0 Immature Gran # (Auto) 0.04 H Absolute Nucleated RBC 0.00 Immature Gran % 1 H Nucleated RBC % 0 Smear Path Review PT 16.1 H INR 1.5 H APTT 28.4 Sodium 145 Potassium 3.1 L D Chloride 111 H Carbon Dioxide 21.9 Anion Gap 12 BUN 19 Creatinine 0.7 Estim Creat Clear Calc 91.1 eGFR > 60 BUN/Creatinine Ratio 27 H Glucose 131 H Calculated Osmolality 292 Calcium 8.7 Corrected Calcium 9.0 Phosphorus 1.3 L Magnesium 2.0 Total Bilirubin 6.9 H D AST 1211 H* ALT 1248 H* Alkaline Phosphatase 82 Total Protein 5.7 Albumin 3.6 D Globulin 2.1 L Albumin/Globulin Ratio 1.7 Misc Test Result Platelets confirmed Blood Type Antibody Screen Crossmatch Blood Bank Wristband ID Blood Bank Comment ABG Interpretation ABG results: 04/27/24 23:20 VBG pH 7.29 L VBG pCO2 27 L VBG pO2 35 VBG Base Excess -12 L Quality Measures Quality Measures VTE prophylaxis Assessment & Plan Assessment Current Active Medications: Generic Name Dose Route Start Last Admin Trade Name Sonnyq PRN Reason Stop Dose Admin Acetaminophen 325 mg 04/27/24 22:48 Acetaminophen 325 Mg Tablet PO 05/27/24 22:47 Q6H PRN Pain (1-3) & Fever >101.5 Dextrose 25 ml 04/28/24 01:59 Dextrose 50%-Water Inj 50 Ml Syringe IV 05/28/24 01:58 Q15MIN PRN BG 50-70 responsive npo pt Dextrose 50 ml 04/28/24 01:59 Dextrose 50%-Water Inj 50 Ml Syringe IV 05/28/24 01:58 Q15MIN PRN BG <50 OR BG <70 & pt unresponsive Glucagon 1 mg 04/28/24 01:59 Glucagon Inj 1 Mg Vial IM Q15MIN PRN BG <70, and no IV access Pantoprazole Sodium 80 mg in 100 mls @ 10 mls/hr 04/27/24 20:57 04/30/24 02:01 Protonix/Ns 80mg Iv Premix IV 04/30/24 18:56 10 mls/hr Q10H SREE Administration Ceftriaxone Sodium 1,000 mg/ 50 mls @ 100 mls/hr 04/28/24 21:00 04/29/24 20:41 Sodium Chloride IV 05/05/24 20:59 100 mls/hr HS SREE Administration Octreotide Acetate 1,000 mcg/ 102 mls @ 5.1 mls/hr 04/28/24 16:57 04/29/24 15:10 Sodium Chloride IV 05/02/24 22:55 50 mcg/hr .Q20H SREE 5.1 mls/hr Administration Protocol 50 MCG/HR Potassium Phosphate 22.5 mmol/ 507.5 mls @ 82.778 mls/hr 04/30/24 08:00 04/30/24 08:15 Sodium Chloride IV 04/30/24 14:07 82.778 mls/hr X1 ONE Administration Insulin Human Lispro 0 unit 04/29/24 11:45 04/30/24 07:39 Insulin Lispro (Admelog) 1 Unit/0.01 Ml Unit SC 05/29/24 11:44 Not Given AC SREE Protocol Lorazepam 0.5 mg 04/27/24 22:58 Lorazepam 2 Mg/Ml Vial IV 05/02/24 22:57 Q4H PRN CIWA SCORE 8-13 Lorazepam 2 mg 04/27/24 22:58 Lorazepam 2 Mg/Ml Vial IV 05/02/24 22:57 Q4H PRN CIWA SCORE 20-25 Lorazepam 2 mg 04/27/24 22:58 Lorazepam 2 Mg/Ml Vial IVP X1 PRN Breakthrough Agitation Lorazepam 1 mg 04/27/24 22:58 Lorazepam 2 Mg/Ml Vial IV 05/02/24 22:57 Q4H PRN CIWA SCORE 14-19 Metoclopramide HCl 5 mg 04/29/24 00:00 04/30/24 05:26 Metoclopramide Inj 5 Mg/Ml Vial 2 Ml IVP 05/29/24 00:00 5 mg Q6HR SREE Administration Protocol Ondansetron HCl 4 mg 04/27/24 22:48 04/28/24 07:54 Ondansetron Inj 2 Mg/Ml Inj 2 Ml IV 05/27/24 22:47 4 mg Q6H PRN Administration NAUSEA OR VOMITING Protocol Phytonadione 10 mg 04/30/24 09:00 04/30/24 08:15 Phytonadione Inj 10 Mg/Ml Amp SC 05/01/24 08:59 10 mg QDAY SREE Administration Prednisolone Sodium Phosphate 40 mg 04/29/24 09:00 04/30/24 08:15 Prednisolone Liqd 15 Mg/5 Ml Udc PO 05/29/24 08:59 40 mg QAM SREE Administration Plan 57-year-old male with past medical history of alcohol use disorder, esophageal varices, hypertension, hyperlipidemia, and DM2 was admitted to the hospital due to acute blood loss anemia likely in the setting of GI bleed. #Acute blood loss anemia #GI bleed #Grade 3 esophageal varices s/p banded #Hx of alcohol use disorder ?Patient came in with complaints of bloody emesis as well as bloody stools ? Initial hemoglobin was 5.6 for which he required 2 units of PRBC. ? On past EGD patient was found to have an esophageal varices which was banded in 2022 ? Patient admitted to using alcohol every day and drinking around 7-8 beers - EGD done yesterday that showed grade 3 esophageal varices which were banded as well as erythematous mucosa in the stomach. -Hgb 8 today Plan: ? Continue octreotide drip [04/28/2024?05/02/2024] ? Continue Protonix ? IV Rocephin 1 g daily [04/27/2024?] ?CIWA protocol ordered ? Bleeding precautions ? Will transfuse hemoglobin less than 7 ? GI consulted, appreciate recommendations #Acute liver failure likely in the setting of #Alcoholic hepatitis #Coagulopathy #Hyperbilirubinemia #Thrombocytopenia ? Acute liver failure likely in the setting of alcohol use ? Initial MELD NA score of 21 point indicating 7 to 10% mortality ? Initial Child-Garcia score of 10 points ? Initial Madrey score of 35 points indicating good prognosis with steroids - Liver function is slightly improving with AST 121 and ALT 1248 from 4550 and 2336 respectively. Plan: ? Continue prednisolone 40 mg daily ? Continue octreotide drip ? Continue Protonix ? Will continue to monitor #JEANIE, improving #Hypoalbuminemia ? Patient has a creatinine of 0.7 this morning from his baseline of 0.6 ? Patient has albumin of 3.6 today ? Patient could be developing hepatorenal syndrome, but could be likely prerenal JEANIE again in the blood loss. Plan: ?Avoid nephrotoxic agents ? Renally dose medication ? Will continue to monitor #HFpEF (55-60%) ? Given patient's history of alcohol use there is concern for dilated cardiomyopathy - Echo showed EF 55-60% Plan: - Will consider GDMT upon DC #DM2 ? A1c 6.7% on 04/2024 Plan: ? ISS ? Hypoglycemia protocol ordered #Hyperkalemia, resolved #High anion gap metabolic acidosis, resolved #Lactic acidosis Disposition: Continue Octeotride until 05/02/2024 and protonix Diet: clear liquid GI prophylaxis: protonix DVT prophylaxis: SCDs Code: Full code Case disclosed with Attending Dr. Porfirio Matos PGY1
[2024-04-30] MEDS: INSULIN LISPRO (AdmeLOG) 1 UNIT/0.01 ML UNIT SC ×2 (11:59→17:28)
[2024-04-30] MEDS: OCTREOTIDE ACET INJ 1,000 MCG in SODIUM CHLORIDE 0.9% 100 ML 5.1 MCG IV (13:03)
[2024-04-30] MEDS: cefTRIAXone 1,000 MG in SODIUM CHLORIDE 0.9% (Popper) 50 ML 100 MG IV (20:52)
--- NOTE | 2024-04-30 21:45 | ESPR_ITS ---
Documentation for date of: 04/30/24 Subjective Subjective Interval history: Patient evaluated Although hemoglobin hematocrit dropped to 6.6 and 20.2 requiring blood transfusion is back up to 8.0 and 24.1 Patient also got FFP and platelet transfusion No stool maybe it is equilibration Exam Vital Signs Temp Pulse Resp BP Pulse Ox O2 Del Method O2 Flow Rate 98.8 F 54 L 18 162/71 H 100 Room Air 3 04/30/24 20:00 04/30/24 20:00 04/30/24 20:00 04/30/24 20:00 04/30/24 20:00 04/30/24 20:00 04/28/24 20:30 Objective Labs 04/30/24 05:23 04/30/24 05:23 Labs: Laboratory Results - last 24 hr 04/27/24 04/30/24 21:02 05:23 WBC 5.6 RBC 2.88 L Hgb 8.0 L D Hct 24.1 L MCV 84 MCH 27.8 MCHC 33.2 RDW Std Deviation 50.5 H Plt Count 39 L D Neut % (Auto) 79 Lymph % (Auto) 14 [place] % (Auto) 6 Eos % (Auto) 0 Baso % (Auto) 0 Neut # (Auto) 4.4 Lymph # (Auto) 0.8 L [place] # (Auto) 0.3 Eos # (Auto) 0.0 Baso # (Auto) 0.0 Immature Gran # (Auto) 0.04 H Absolute Nucleated RBC 0.00 Immature Gran % 1 H Nucleated RBC % 0 PT 16.1 H INR 1.5 H APTT 28.4 Sodium 145 Potassium 3.1 L D Chloride 111 H Carbon Dioxide 21.9 Anion Gap 12 BUN 19 Creatinine 0.7 Estim Creat Clear Calc 91.1 eGFR > 60 BUN/Creatinine Ratio 27 H Glucose 131 H Calculated Osmolality 292 Calcium 8.7 Corrected Calcium 9.0 Phosphorus 1.3 L Magnesium 2.0 Total Bilirubin 6.9 H D AST 1211 H* ALT 1248 H* Alkaline Phosphatase 82 Total Protein 5.7 Albumin 3.6 D Globulin 2.1 L Albumin/Globulin Ratio 1.7 Misc Test Result Platelets confirmed Blood Type O Positive Antibody Screen NEGATIVE Crossmatch See Detail Blood Bank Wristband ID Yes Blood Bank Comment FFP Ready Impressions Impression: Upper GI bleed secondary to esophageal varices and hypertensive portal gastropathy leading to mucosal oozing of blood Continue current management ABG Interpretation ABG results: 04/27/24 23:20 VBG pH 7.29 L VBG pCO2 27 L VBG pO2 35 VBG Base Excess -12 L Assessment & Plan A&P Narrative # Hematemesis # Hematochezia in the setting of chronic liver disease secondary to alcohol Plan Case discussed with the emergency room physician design assistant Serial CBC Octreotide 50 mcg IV push and 50 mcg/h continuous infusion Protonix drip at 8 mg/h N.p.o. Consent obtained for fiberoptic esophagogastroduodenoscopy with possible therapeutic intervention under intravenous moderate sedation and scheduled Prognosis is guarded Advised the patient to be completely abstinent from alcohol otherwise the prognosis is much worse Time Spent With Patient Time: Total time spent is greater than 50% in coordination of care (as documented) at patient's floor/unit and/or counseling patient:
[2024-05-01] VITALS (9 sets, daily range): BP systolic 157–167; BP diastolic 66–89; PULSE 45–85; RESP 13–97; TEMP 36.7–37.4; O2SAT 96–99; BMI 31.4
[2024-05-01] MEDS: METOCLOPRAMIDE INJ 5 MG/ML VIAL 2 ML IVP ×5 (00:12→23:10)
[2024-05-01 05:36] LABS: Basophils % (Auto) 0 % (0-2.5); Eosinophils % (Auto) 0 % (0-10); Lymphocytes # (Auto) 0.8 Thou/mm3 (1.0-4.8); Lymphocytes % (Auto) 12 % (10-50); Monocytes # (Auto) 0.4 Thou/mm3 (0.0-0.8); Monocytes % (Auto) 6 % (0-12); Neutrophils # (Auto) 5.5 Thou/mm3 (1.8-7.7); Neutrophils % (Auto) 81 % (37-80); Nucleated Red Blood Cell % 0 /100 WBC (0); White Blood Count 6.9 Thou/mm3 (3.8-10.6)
[2024-05-01 05:38] LABS: Hematocrit 25.6 % (41.0-53.0); Immature Granulocytes % (Auto) 1 % (0-0); Immature Granulocytes Auto 0.05 Thou/mm3 (0.00-0.00); Mean Corpuscular HGB Conc 33.6 g/dl (31.0-37.0); Mean Corpuscular Hemoglobin 27.6 pg (25.0-35.0); Mean Corpuscular Volume 82 fL (80-100); RDW Standard Deviation 50.4 fL (35.1-43.9); Red Blood Count 3.12 Miln/mm3 (4.50-5.90)
[2024-05-01 05:50] LABS: Hemoglobin 8.6 g/dL (13.5-16.0); Platelet Count 41 Thou/mm3 (140-440)
[2024-05-01 05:53] LABS: Slide Review Platelets confirmed
[2024-05-01 06:28] LABS: Alanine Aminotransferase 983 U/L (10-49); Albumin, Serum 3.5 gm/dL (3.5-5.0); Albumin/Globulin Ratio 1.5 (1.2-2.2); Alkaline Phosphatase 87 U/L (46-116); Anion Gap 10 (7-16); Aspartate Amino Transferase 468 U/L (0-34); BUN/Creatinine Ratio 19 Ratio (12-20); Bilirubin,Total 9.2 mg/dL (0.3-1.2); Blood Urea Nitrogen 15 mg/dL (9-23); Calcium 8.5 mg/dL (8.3-10.6); Calcium (Corrected) 8.9 mg/dL (8.5-10.1); Carbon Dioxide 20.4 mMol/L (20.0-31.0); Chloride 111 mMol/L (98-107); Creatinine (Component) 0.8 mg/dL (0.6-1.3); Globulin 2.3 gm/dL (2.3-3.5); Glucose 125 mg/dL (74-106); Magnesium 1.8 mg/dL (1.6-2.6); Osmolality,Calculated 283 (275-295); Potassium 3.3 mMol/L (3.4-5.1); Sodium 141 mMol/L (136-145); Total Protein 5.8 gm/dL (5.7-8.2); eGFR > 60 See Note
[2024-05-01] MEDS: POTASSIUM CHLORIDE 10% 20 MEQ/15 ML UDC 40 MEQ GT (07:35)
[2024-05-01] MEDS: OCTREOTIDE ACET INJ 1,000 MCG in SODIUM CHLORIDE 0.9% 100 ML 5.1 MCG IV (08:16)
[2024-05-01] MEDS: PANTOPRAZOLE INJ 40 MG VIAL IV ×2 (08:16→20:40)
[2024-05-01] MEDS: prednisoLONE LIQD 15 MG/5 ML UDC 40 MG PO (08:16)
--- NOTE | 2024-05-01 10:43 | ESPR_ITS ---
<Statement entered by Vaishali Monroy MD - 05/06/24 04:06> I reviewed above note and agree with findings and plans. I have also personally examined the patient with medicine team and went over assessment and plan with medical team including university intern and resident physician. <Statement entered by Amado Cooper MD - 05/01/24 15:21> Patient was seen and examined at the bedside. Patient had no active concerns. No acute overnight events were reported.Hemoglobin remained stable. T. bili uptrending likely due to acute liver failure versus gallbladder pathology. EGD on 04/28 showed grade 3 varices status post band ligation. Will continue octreotide 1 more day and continuing prednisone for alcoholic hepatitis. LFTs are improving. Potassium was repleted. Anticipating discharge tomorrow. All labs and orders were reviewed. I saw and examined the patient, and I agree with current management stated by Dr Ronak MD,PGY1. Plan of care was discussed with the attending physician and resident physician. Disclaimer: Despite multiple revisions, due to the dictation software being used, the document bellow may not be free of grammatical errors including phonetic/typographic errors. However, this does not deter from our commitment to providing health care in the patient's best interest in mind. Dr. Marlo MD, PGY 2 Documentation for date of: 05/01/24 Subjective Subjective Interval history: Benjamin Phil 57-y/o M PMHx HTN, HLD, DM, alcohol use admitted on 04/27 for hematemesis and hematochezia. EGD on 04/28 showed grade 3 varices status post band ligation. GI recommended octreotide 50 mcg/h for 5 days and Protonix drip. Throughout hospitalization, received 4 units PRBC, 1 unit FFP, 1 unit platelets. 05/01: Seen and examined at bedside in telemetry. No acute overnight events reported. Needs to be on octreotide drip and Protonix drip ended on 04/30 and thus started on IV pushes twice daily. Per GI, octreotide drip to be continued until tomorrow. Hemoglobin has remained stable and LFTs continue to improve daily. T bili uptrending, likely due to acute liver failure vs gallbladder pathology as ALP within normal limits. Exam Vital Signs Temp Pulse Resp BP Pulse Ox O2 Del Method O2 Flow Rate 98.0 F 67 17 157/89 H 99 Room Air 3 05/01/24 08:00 05/01/24 08:00 05/01/24 08:00 05/01/24 08:00 05/01/24 08:00 05/01/24 08:00 05/01/24 08:00 Narrative Exam General: AOx3, no acute distress, able to speak full sentences HEENT: scleral icterus, conjuncitval pallor, NC/AT, mucous membranes moist Cardiovascular: regular rate and rhythm, S1/S2 present, no murmurs appreciated Pulmonary: clear to auscultation bilaterally, no rales/rhonchi/wheezes Abdominal: soft, non-tender, non-distended, no rebound/guarding, normal bowel sounds present Musculoskeletal: normal ROM, no peripheral edema Skin: warm and dry, intact, no rashes Neuro: CN II-XII intact, no focal deficits Objective Labs 05/01/24 05:00 05/01/24 04:48 Labs: Laboratory Results - last 24 hr 05/01/24 05/01/24 04:48 05:00 WBC 6.9 RBC 3.12 L Hgb 8.6 L Hct 25.6 L MCV 82 MCH 27.6 MCHC 33.6 RDW Std Deviation 50.4 H Plt Count 41 L Neut % (Auto) 81 H Lymph % (Auto) 12 [place] % (Auto) 6 Eos % (Auto) 0 Baso % (Auto) 0 Neut # (Auto) 5.5 Lymph # (Auto) 0.8 L [place] # (Auto) 0.4 Eos # (Auto) 0.0 Baso # (Auto) 0.0 Immature Gran # (Auto) 0.05 H Absolute Nucleated RBC 0.00 Immature Gran % 1 H Nucleated RBC % 0 Sodium 141 Potassium 3.3 L Chloride 111 H Carbon Dioxide 20.4 Anion Gap 10 BUN 15 Creatinine 0.8 Estim Creat Clear Calc 80.0 eGFR > 60 BUN/Creatinine Ratio 19 Glucose 125 H Calculated Osmolality 283 Calcium 8.5 Corrected Calcium 8.9 Magnesium 1.8 Total Bilirubin 9.2 H D AST 468 H ALT 983 H* Alkaline Phosphatase 87 Total Protein 5.8 Albumin 3.5 Globulin 2.3 Albumin/Globulin Ratio 1.5 Misc Test Result Platelets confirmed ABG Interpretation ABG results: 04/27/24 23:20 VBG pH 7.29 L VBG pCO2 27 L VBG pO2 35 VBG Base Excess -12 L Quality Measures Quality Measures VTE prophylaxis Assessment & Plan Assessment Current Active Medications: Generic Name Dose Route Start Last Admin Trade Name Freq PRN Reason Stop Dose Admin Acetaminophen 325 mg 04/27/24 22:48 Acetaminophen 325 Mg Tablet PO 05/27/24 22:47 Q6H PRN Pain (1-3) & Fever >101.5 Dextrose 25 ml 04/28/24 01:59 Dextrose 50%-Water Inj 50 Ml Syringe IV 05/28/24 01:58 Q15MIN PRN BG 50-70 responsive npo pt Dextrose 50 ml 04/28/24 01:59 Dextrose 50%-Water Inj 50 Ml Syringe IV 05/28/24 01:58 Q15MIN PRN BG <50 OR BG <70 & pt unresponsive Glucagon 1 mg 04/28/24 01:59 Glucagon Inj 1 Mg Vial IM Q15MIN PRN BG <70, and no IV access Ceftriaxone Sodium 1,000 mg/ 50 mls @ 100 mls/hr 04/28/24 21:00 04/30/24 20:52 Sodium Chloride IV 05/05/24 20:59 100 mls/hr HS SREE Administration Octreotide Acetate 1,000 mcg/ 102 mls @ 5.1 mls/hr 04/28/24 16:57 05/01/24 08:16 Sodium Chloride IV 05/02/24 22:55 50 mcg/hr .Q20H SREE 5.1 mls/hr Administration Protocol 50 MCG/HR Insulin Human Lispro 0 unit 04/29/24 11:45 05/01/24 07:29 Insulin Lispro (Admelog) 1 Unit/0.01 Ml Unit SC 05/29/24 11:44 Not Given AC SREE Protocol Lorazepam 0.5 mg 04/27/24 22:58 Lorazepam 2 Mg/Ml Vial IV 05/02/24 22:57 Q4H PRN CIWA SCORE 8-13 Lorazepam 2 mg 04/27/24 22:58 Lorazepam 2 Mg/Ml Vial IV 05/02/24 22:57 Q4H PRN CIWA SCORE 20-25 Lorazepam 2 mg 04/27/24 22:58 Lorazepam 2 Mg/Ml Vial IVP X1 PRN Breakthrough Agitation Lorazepam 1 mg 04/27/24 22:58 Lorazepam 2 Mg/Ml Vial IV 05/02/24 22:57 Q4H PRN CIWA SCORE 14-19 Metoclopramide HCl 5 mg 04/29/24 00:00 05/01/24 05:02 Metoclopramide Inj 5 Mg/Ml Vial 2 Ml IVP 05/29/24 00:00 5 mg Q6HR SREE Administration Protocol Ondansetron HCl 4 mg 04/27/24 22:48 04/28/24 07:54 Ondansetron Inj 2 Mg/Ml Inj 2 Ml IV 05/27/24 22:47 4 mg Q6H PRN Administration NAUSEA OR VOMITING Protocol Pantoprazole Sodium 40 mg 05/01/24 09:00 05/01/24 08:16 Pantoprazole Inj 40 Mg Vial IV 05/31/24 08:59 40 mg BID SREE Administration Prednisolone Sodium Phosphate 40 mg 04/29/24 09:00 05/01/24 08:16 Prednisolone Liqd 15 Mg/5 Ml Udc PO 05/29/24 08:59 40 mg QAM SREE Administration Plan Benjamin Villarreal 57-y/o M PMHx HTN, HLD, DM, alcohol use admitted on 04/27 for hematemesis and hematochezia. EGD on 04/28 showed grade 3 varices status post band ligation. GI recommended octreotide 50 mcg/h for 5 days and Protonix drip. Throughout hospitalization, received 4 units PRBC, 1 unit FFP, 1 unit platelets. #Grade 3 esophageal varices status post band ligation #Upper GI bleed #Acute blood loss anemia #Alcohol use disorder History of drinking alcohol since 12 years old and has been drinking 7-8 beers daily for the last few months. ? GI consulted, appreciate recommendations ? Octreotide drip (04/28-05/02) ? Protonix drip (04/27-04/30) -> IV BID ? Ceftriaxone 1 g daily (04/27-) for SBP prophylaxis ? Monitor hemoglobin #Hyperbilirubinemia Liver US: Gallbladder wall thickened 0.7 cm with probable edema, CBD 0.3 cm Likely secondary to acute liver failure and will continue to monitor for now. #Alcoholic hepatitis #Acute liver failure #Coagulopathy #Thrombocytopenia MELD NA score of 21: 7 to 10% mortality Child-Garcia score of 10 Maddrey score of 35: Good prognosis with steroids ? Prednisone 40 mg daily ? Octreotide and Protonix drip as above ? Continue to monitor LFTs daily ? Abstinence from alcohol #JEANIE, improving ? Avoid nephrotoxic agents, renally dose medications #HFpEF (55 to 60%) Echo on 04/28: EF 55 to 60%, grade 1 diastolic dysfunction. Moderate and mild AI. ? Recommend GDMT outpatient #T2DM A1c 6.7% ? SSI #Hyperkalemia, resolved #Anion gap metabolic acidosis, secondary to lactic acidosis, resolved Hospital management: Disposition: octreotide drip until 05/02 Fluids: none Diet: clear liquid Lines: peripheral IV DVT prophylaxis: SCDs given GI bleed GI prophylaxis: pantoprazole IV BID CODE STATUS: full code ----- Plan discussed with attending physician Dr. Monroy and senior resident physician Dr. Marlo Simons MD PGY-1 Internal Medicine
[2024-05-01] MEDS: INSULIN LISPRO (AdmeLOG) 1 UNIT/0.01 ML UNIT SC ×2 (11:38→17:47)
[2024-05-01] MEDS: cefTRIAXone 1,000 MG in SODIUM CHLORIDE 0.9% (Popper) 50 ML 100 MG IV (20:41)
--- NOTE | 2024-05-01 21:43 | PD.IMPROG ---
Documentation for date of: 05/01/24 Subjective Subjective Interval history: Patient evaluated hemoglobin hematocrit 8.6 and 25.6 with a platelet count 41,000 Total bilirubin 9.2 AST ALT coming down to 468 and 983 slightly uptrending total bilirubin but decreasing transaminases Exam Vital Signs Temp Pulse Resp BP Pulse Ox O2 Del Method O2 Flow Rate 99.4 F 63 18 159/66 H 96 Room Air 3 05/01/24 19:59 05/01/24 20:43 05/01/24 20:43 05/01/24 19:59 05/01/24 19:59 05/01/24 19:59 05/01/24 16:00 Objective Labs 05/01/24 05:00 05/01/24 04:48 Labs: Laboratory Results - last 24 hr 05/01/24 05/01/24 04:48 05:00 WBC 6.9 RBC 3.12 L Hgb 8.6 L Hct 25.6 L MCV 82 MCH 27.6 MCHC 33.6 RDW Std Deviation 50.4 H Plt Count 41 L Neut % (Auto) 81 H Lymph % (Auto) 12 [place] % (Auto) 6 Eos % (Auto) 0 Baso % (Auto) 0 Neut # (Auto) 5.5 Lymph # (Auto) 0.8 L [place] # (Auto) 0.4 Eos # (Auto) 0.0 Baso # (Auto) 0.0 Immature Gran # (Auto) 0.05 H Absolute Nucleated RBC 0.00 Immature Gran % 1 H Nucleated RBC % 0 Sodium 141 Potassium 3.3 L Chloride 111 H Carbon Dioxide 20.4 Anion Gap 10 BUN 15 Creatinine 0.8 Estim Creat Clear Calc 80.0 eGFR > 60 BUN/Creatinine Ratio 19 Glucose 125 H Calculated Osmolality 283 Calcium 8.5 Corrected Calcium 8.9 Magnesium 1.8 Total Bilirubin 9.2 H D AST 468 H ALT 983 H* Alkaline Phosphatase 87 Total Protein 5.8 Albumin 3.5 Globulin 2.3 Albumin/Globulin Ratio 1.5 Misc Test Result Platelets confirmed Impressions Impression: # Upper GI bleed secondary to esophageal variceal bleeding requiring band ligation Mucosal oozing of blood secondary to advanced portal hypertension due to underlying chronic liver disease Finishing of the octreotide infusion Can be discharged home To be followed by the primary care physician starting tomorrow # Abnormal LFTs secondary to hypoxic hepatitis and the combination of chronic liver disease secondary to alcohol Improving ABG Interpretation ABG results: 04/27/24 23:20 VBG pH 7.29 L VBG pCO2 27 L VBG pO2 35 VBG Base Excess -12 L Assessment & Plan A&P Narrative # Hematemesis # Hematochezia in the setting of chronic liver disease secondary to alcohol Plan Case discussed with the emergency room physician occupational therapist assistant Serial CBC Octreotide 50 mcg IV push and 50 mcg/h continuous infusion Protonix drip at 8 mg/h N.p.o. Consent obtained for fiberoptic esophagogastroduodenoscopy with possible therapeutic intervention under intravenous moderate sedation and scheduled Prognosis is guarded Advised the patient to be completely abstinent from alcohol otherwise the prognosis is much worse Time Spent With Patient Time: Total time spent is greater than 50% in coordination of care (as documented) at patient's floor/unit and/or counseling patient:
[2024-05-02] VITALS (8 sets, daily range): BP systolic 123–172; BP diastolic 64–93; PULSE 58–122; RESP 12–16; TEMP 36.3–37.9; O2SAT 92–100
[2024-05-02] MEDS: LORazepam 2 MG/ML VIAL 1 MG IV (04:35)
--- NOTE | 2024-05-02 05:30 | PC.NURSE ---
Pt is trying to get out of bed, doesnt follow command, restless and very confused, he said he's going to work and going home. MD Lopez made aware, Bilateral wrist restraint ordered.
[2024-05-02] MEDS: LORazepam 2 MG/ML VIAL IVP ×4 (05:37→14:26)
[2024-05-02] MEDS: METOCLOPRAMIDE INJ 5 MG/ML VIAL 2 ML IVP ×3 (05:37→17:41)
[2024-05-02 05:59] LABS: Basophils % (Auto) 0 % (0-2.5); Eosinophils % (Auto) 1 % (0-10); Hematocrit 26.9 % (41.0-53.0); Hemoglobin 9.1 g/dL (13.5-16.0); Immature Granulocytes % (Auto) 1 % (0-0); Immature Granulocytes Auto 0.04 Thou/mm3 (0.00-0.00); Lymphocytes # (Auto) 0.8 Thou/mm3 (1.0-4.8); Lymphocytes % (Auto) 11 % (10-50); Mean Corpuscular HGB Conc 33.8 g/dl (31.0-37.0); Mean Corpuscular Hemoglobin 27.6 pg (25.0-35.0); Mean Corpuscular Volume 82 fL (80-100); Monocytes # (Auto) 0.7 Thou/mm3 (0.0-0.8); Monocytes % (Auto) 9 % (0-12); Neutrophils % (Auto) 79 % (37-80); Nucleated Red Blood Cell % 0 /100 WBC (0); RDW Standard Deviation 50.4 fL (35.1-43.9); White Blood Count 7.6 Thou/mm3 (3.8-10.6)
--- NOTE | 2024-05-02 06:00 | PC.NURSE ---
Pt become agitated, restless and trying to get out of bed, MD Sher made aware, new order to give another Ativan 2mg IVP.
[2024-05-02 06:08] LABS: Alanine Aminotransferase 716 U/L (10-49); Albumin, Serum 3.5 gm/dL (3.5-5.0); Albumin/Globulin Ratio 1.5 (1.2-2.2); Alkaline Phosphatase 93 U/L (46-116); Anion Gap 11 (7-16); Aspartate Amino Transferase 168 U/L (0-34); BUN/Creatinine Ratio 15 Ratio (12-20); Blood Urea Nitrogen 12 mg/dL (9-23); Calcium 8.5 mg/dL (8.3-10.6); Calcium (Corrected) 8.9 mg/dL (8.5-10.1); Chloride 109 mMol/L (98-107); Creatinine (Component) 0.8 mg/dL (0.6-1.3); Globulin 2.3 gm/dL (2.3-3.5); Glucose 127 mg/dL (74-106); Magnesium 1.7 mg/dL (1.6-2.6); Osmolality,Calculated 281 (275-295); Phosphorous 2.2 mg/dL (2.4-5.1); Potassium 3.1 mMol/L (3.4-5.1); Sodium 140 mMol/L (136-145); Total Protein 5.8 gm/dL (5.7-8.2); eGFR > 60 See Note
[2024-05-02 06:19] LABS: Platelet Count 39 Thou/mm3 (140-440)
[2024-05-02 06:37] LABS: Slide Review Platelets confirmed
[2024-05-02] MEDS: INSULIN LISPRO (AdmeLOG) 1 UNIT/0.01 ML UNIT SC (07:41)
[2024-05-02] MEDS: LORazepam 2 MG/ML VIAL IV ×4 (07:41→22:08)
--- NOTE | 2024-05-02 08:07 | ESPR_ITS ---
<Statement entered by Vaishali Monroy MD - 05/08/24 21:47> I reviewed above note and agree with findings and plans. I have also personally examined the patient with medicine team and went over assessment and plan with medical team including internal medicine physician assistant and resident physician. Documentation for date of: 05/02/24 Subjective Subjective Interval history: Benjamin Villarreal 57-y/o M PMHx HTN, HLD, DM, alcohol use admitted on 04/27 for hematemesis and hematochezia. EGD on 04/28 showed grade 3 varices status post band ligation. GI recommended octreotide 50 mcg/h for 5 days and Protonix drip. Throughout hospitalization, received 4 units PRBC, 1 unit FFP, 1 unit platelets. 05/01: Seen and examined at bedside in telemetry. No acute overnight events reported. Needs to be on octreotide drip and Protonix drip ended on 04/30 and thus started on IV pushes twice daily. Per GI, octreotide drip to be continued until tomorrow. Hemoglobin has remained stable and LFTs continue to improve daily. T bili uptrending, likely due to acute liver failure vs gallbladder pathology as ALP within normal limits. 05/02: Patient seen and examined at bedside this morning. Overnight code melgoza was called due to alcohol withdrawal and patient was transferred to telemetry. Patient CIWA score at bedside was 29, however he is responding appropriately to IV Ativan. Vitals stable, labs reviewed and significant for thrombocytopenia, hypokalemia (repleted), hyperbilirubinemia. LFTs are downtrending. Patient to complete octreotide drip today however will remain inpatient due to CIWA protocol. Will reevaluate Lille score to determine if steroids are beneficial and alcoholic hepatitis. Exam Vital Signs Temp Pulse Resp BP Pulse Ox O2 Del Method O2 Flow Rate 100.2 F 65 14 160/64 H 94 L Room Air 3 05/02/24 03:45 05/02/24 04:00 05/02/24 03:45 05/02/24 03:45 05/02/24 03:45 05/02/24 03:45 05/01/24 16:00 Narrative Exam Gen: Confused/disoriented, not answering questions appropriately, diaphoretic HEENT: Unable to assess fully CVS: normal S1, S2. RRR. No MRG Resp: CTA B/L. No rhonchi, rales, crackles or wheezing Abd: soft, non-tender, non-distended. BS+ in all 4 quadrants MSK: In BUE restraints; no edema Neuro: Unable to fully assess due to withdrawal symptoms Psych: Having hallucinations, anxiety Objective Labs 05/02/24 04:50 05/02/24 04:50 Labs: Laboratory Results - last 24 hr 05/02/24 04:50 WBC 7.6 RBC 3.30 L Hgb 9.1 L Hct 26.9 L MCV 82 MCH 27.6 MCHC 33.8 RDW Std Deviation 50.4 H Plt Count 39 L Neut % (Auto) 79 Lymph % (Auto) 11 [place] % (Auto) 9 Eos % (Auto) 1 Baso % (Auto) 0 Neut # (Auto) 6.0 Lymph # (Auto) 0.8 L [place] # (Auto) 0.7 Eos # (Auto) 0.0 Baso # (Auto) 0.0 Immature Gran # (Auto) 0.04 H Absolute Nucleated RBC 0.00 Immature Gran % 1 H Nucleated RBC % 0 Sodium 140 Potassium 3.1 L Chloride 109 H Carbon Dioxide 20.0 Anion Gap 11 BUN 12 Creatinine 0.8 Estim Creat Clear Calc 80.0 eGFR > 60 BUN/Creatinine Ratio 15 Glucose 127 H Calculated Osmolality 281 Calcium 8.5 Corrected Calcium 8.9 Phosphorus 2.2 L Magnesium 1.7 Total Bilirubin 11.0 H D AST 168 H ALT 716 H* Alkaline Phosphatase 93 Total Protein 5.8 Albumin 3.5 Globulin 2.3 Albumin/Globulin Ratio 1.5 Misc Test Result Platelets confirmed ABG Interpretation ABG results: 04/27/24 23:20 VBG pH 7.29 L VBG pCO2 27 L VBG pO2 35 VBG Base Excess -12 L Quality Measures Quality Measures VTE prophylaxis Assessment & Plan Assessment Current Active Medications: Generic Name Dose Route Start Last Admin Trade Name Freq PRN Reason Stop Dose Admin Acetaminophen 325 mg 04/27/24 22:48 Acetaminophen 325 Mg Tablet PO 05/27/24 22:47 Q6H PRN Pain (1-3) & Fever >101.5 Dextrose 25 ml 04/28/24 01:59 Dextrose 50%-Water Inj 50 Ml Syringe IV 05/28/24 01:58 Q15MIN PRN BG 50-70 responsive npo pt Dextrose 50 ml 04/28/24 01:59 Dextrose 50%-Water Inj 50 Ml Syringe IV 05/28/24 01:58 Q15MIN PRN BG <50 OR BG <70 & pt unresponsive Glucagon 1 mg 04/28/24 01:59 Glucagon Inj 1 Mg Vial IM Q15MIN PRN BG <70, and no IV access Ceftriaxone Sodium 1,000 mg/ 50 mls @ 100 mls/hr 04/28/24 21:00 05/01/24 23:11 Sodium Chloride IV 05/05/24 20:59 Infused HS SREE Infusion Octreotide Acetate 1,000 mcg/ 102 mls @ 5.1 mls/hr 04/28/24 16:57 05/01/24 08:16 Sodium Chloride IV 05/02/24 22:55 50 mcg/hr .Q20H SREE 5.1 mls/hr Administration Protocol 50 MCG/HR Insulin Human Lispro 0 unit 04/29/24 11:45 05/02/24 07:41 Insulin Lispro (Admelog) 1 Unit/0.01 Ml Unit SC 05/29/24 11:44 1 unit AC SREE Administration Protocol Lorazepam 0.5 mg 04/27/24 22:58 Lorazepam 2 Mg/Ml Vial IV 05/02/24 22:57 Q4H PRN CIWA SCORE 8-13 Lorazepam 2 mg 04/27/24 22:58 05/02/24 07:41 Lorazepam 2 Mg/Ml Vial IV 05/02/24 22:57 2 mg Q4H PRN Administration CIWA SCORE 20-25 Lorazepam 1 mg 04/27/24 22:58 05/02/24 04:35 Lorazepam 2 Mg/Ml Vial IV 05/02/24 22:57 1 mg Q4H PRN Administration CIWA SCORE 14-19 Metoclopramide HCl 5 mg 04/29/24 00:00 05/02/24 05:37 Metoclopramide Inj 5 Mg/Ml Vial 2 Ml IVP 05/29/24 00:00 5 mg Q6HR SREE Administration Protocol Ondansetron HCl 4 mg 04/27/24 22:48 04/28/24 07:54 Ondansetron Inj 2 Mg/Ml Inj 2 Ml IV 05/27/24 22:47 4 mg Q6H PRN Administration NAUSEA OR VOMITING Protocol Pantoprazole Sodium 40 mg 05/01/24 09:00 05/01/24 20:40 Pantoprazole Inj 40 Mg Vial IV 05/31/24 08:59 40 mg BID SREE Administration Prednisolone Sodium Phosphate 40 mg 04/29/24 09:00 05/01/24 08:16 Prednisolone Liqd 15 Mg/5 Ml Udc PO 05/29/24 08:59 40 mg QAM SREE Administration Plan Benjamin Villarreal 57-y/o M PMHx HTN, HLD, DM, alcohol use admitted on 04/27 for hematemesis and hematochezia. EGD on 04/28 showed grade 3 varices status post band ligation. GI recommended octreotide 50 mcg/h for 5 days and Protonix drip. Throughout hospitalization, received 4 units PRBC, 1 unit FFP, 1 unit platelets. #Alcohol withdrawal Overnight patient had a code melgoza for alcohol withdrawal symptoms CIWA has been fluctuating, 3?33 (29 at bedside) Continue CIWA protocol with IV Ativan => patient is responding appropriately Will add IV as patient is not tolerating p.o. at this time thiamine, folic acid, multivitamin Will consider ICU consult for Precedex drip versus starting patient on phenobarbital #Grade 3 esophageal varices status post band ligation #Upper GI bleed #Acute blood loss anemia #Alcohol use disorder History of drinking alcohol since 12 years old and has been drinking 7-8 beers daily for the last few months. ? GI consulted, appreciate recommendations ? Octreotide drip (04/28-05/02) ? Protonix drip (04/27-04/30) -> IV BID ? Ceftriaxone 1 g daily (04/27-) for SBP prophylaxis ? Monitor hemoglobin; stable #Hyperbilirubinemia Liver US: Gallbladder wall thickened 0.7 cm with probable edema, CBD 0.3 cm Likely secondary to acute liver failure and will continue to monitor for now. 3/2: T. bili 11 #Alcoholic hepatitis #Acute liver failure #Coagulopathy #Thrombocytopenia MELD NA score of 21: 7 to 10% mortality Child-Garcia score of 10 Maddrey score of 35: Good prognosis with steroids ? Prednisone 40 mg daily ? Octreotide and Protonix as above ? Continue to monitor LFTs daily => downtrending ? Abstinence from alcohol 3/2: Will repeat labs to calculate Lille score, on whether to continue steroids #Hypokalemia Potassium 3.1, repleted #JEANEI, resolved ? Avoid nephrotoxic agents, renally dose medications 05/02: Creatinine 0.8, with baseline appearing to be 0.6 #HFpEF (55 to 60%) Echo on 04/28: EF 55 to 60%, grade 1 diastolic dysfunction. Moderate and mild AI. ? Recommend GDMT outpatient #T2DM A1c 6.7% ? SSI #Hyperkalemia, resolved #Anion gap metabolic acidosis, secondary to lactic acidosis, resolved Hospital management: Disposition: [facility] protocol; completed 5 days octreotide drip Fluids: none Diet: N.p.o. Lines: peripheral IV DVT prophylaxis: SCDs given GI bleed GI prophylaxis: pantoprazole IV BID CODE STATUS: full code Patient seen and care discussed with my attending Dr. Monroy. Shea Jaeger MD PGY-3
[2024-05-02] MEDS: PANTOPRAZOLE INJ 40 MG VIAL IV ×2 (09:00→20:21)
[2024-05-02] MEDS: POTASSIUM CHL 10 mEq IVPB 10 MEQ/100 ML BAG 100 MEQ IV ×4 (11:28→15:23)
[2024-05-02] MEDS: Magnesium Sulfate 2 GM Ivpb 2 GM/50 ML BAG IV (11:29)
--- NOTE | 2024-05-02 11:55 | PC.NURSE ---
Patient forearms bruised, patient pulling wrist restraints.
[2024-05-02] MEDS: OCTREOTIDE ACET INJ 1,000 MCG in SODIUM CHLORIDE 0.9% 100 ML 5.1 MCG IV (12:43)
--- NOTE | 2024-05-02 14:36 | ESPR_ITS ---
Documentation for date of: 05/02/24 Subjective Subjective Interval history: Patient evaluated hemoglobin hematocrit 9.1 and 26.9 Pro time INR 1.5 Total bilirubin 11.1 AST ALT 168 and 716 Exam Vital Signs Temp Pulse Resp BP Pulse Ox O2 Del Method O2 Flow Rate 99.1 F 122 H 15 172/93 H 95 Room Air 3 05/02/24 08:00 05/02/24 08:00 05/02/24 08:00 05/02/24 08:00 05/02/24 08:00 05/02/24 08:00 05/01/24 16:00 Routine Respiratory Exam Comments: Normal to auscultation Routine Abdominal Exam Comments: Soft nontender Objective Labs 05/02/24 04:50 05/02/24 04:50 Labs: Laboratory Results - last 24 hr 05/02/24 04:50 WBC 7.6 RBC 3.30 L Hgb 9.1 L Hct 26.9 L MCV 82 MCH 27.6 MCHC 33.8 RDW Std Deviation 50.4 H Plt Count 39 L Neut % (Auto) 79 Lymph % (Auto) 11 [place] % (Auto) 9 Eos % (Auto) 1 Baso % (Auto) 0 Neut # (Auto) 6.0 Lymph # (Auto) 0.8 L [place] # (Auto) 0.7 Eos # (Auto) 0.0 Baso # (Auto) 0.0 Immature Gran # (Auto) 0.04 H Absolute Nucleated RBC 0.00 Immature Gran % 1 H Nucleated RBC % 0 Sodium 140 Potassium 3.1 L Chloride 109 H Carbon Dioxide 20.0 Anion Gap 11 BUN 12 Creatinine 0.8 Estim Creat Clear Calc 80.0 eGFR > 60 BUN/Creatinine Ratio 15 Glucose 127 H Calculated Osmolality 281 Calcium 8.5 Corrected Calcium 8.9 Phosphorus 2.2 L Magnesium 1.7 Total Bilirubin 11.0 H D AST 168 H ALT 716 H* Alkaline Phosphatase 93 Total Protein 5.8 Albumin 3.5 Globulin 2.3 Albumin/Globulin Ratio 1.5 Misc Test Result Platelets confirmed Impressions Impression: Upper GI bleed requiring band ligation of the esophageal varices Abnormal LFTs improving combination of chronic liver disease secondary to alcohol as well as hypoxic hepatitis could also be acute alcohol induced hepatitis Continue current management ABG Interpretation ABG results: 04/27/24 23:20 VBG pH 7.29 L VBG pCO2 27 L VBG pO2 35 VBG Base Excess -12 L Assessment & Plan A&P Narrative # Hematemesis # Hematochezia in the setting of chronic liver disease secondary to alcohol Plan Case discussed with the emergency room physician data analysis assistant Serial CBC Octreotide 50 mcg IV push and 50 mcg/h continuous infusion Protonix drip at 8 mg/h N.p.o. Consent obtained for fiberoptic esophagogastroduodenoscopy with possible therapeutic intervention under intravenous moderate sedation and scheduled Prognosis is guarded Advised the patient to be completely abstinent from alcohol otherwise the prognosis is much worse Time Spent With Patient Time: Total time spent is greater than 50% in coordination of care (as documented) at patient's floor/unit and/or counseling patient:
[2024-05-02] MEDS: MULTIVITAMIN INJ 10 ML in SODIUM CHLORIDE 0.9% 1000 ML 1,000 ML 100 ML IV (17:41)
[2024-05-02] MEDS: FOLIC ACID INJ 1 MG/0.2 ML IVP (17:42)
[2024-05-02] MEDS: THIAMINE INJ 100 MG/ML VIAL 2 ML IVP (17:42)
[2024-05-02] MEDS: cefTRIAXone 1,000 MG in SODIUM CHLORIDE 0.9% (Popper) 50 ML 100 MG IV (20:21)
[2024-05-03] VITALS: BP 139/77; PULSE 54; PULSE 97; RESP 16; TEMP 36.4; O2SAT 98
[2024-05-03] MEDS: METOCLOPRAMIDE INJ 5 MG/ML VIAL 2 ML IVP ×4 (00:20→17:41)
[2024-05-03 04:00] VITALS: BP 135/76; PULSE 59; PULSE 62; RESP 18; TEMP 36.7; O2SAT 98
[2024-05-03 04:42] LABS: Basophils % (Auto) 0 % (0-2.5); Eosinophils # (Auto) 0.2 Thou/mm3 (0.0-0.5); Eosinophils % (Auto) 3 % (0-10); Hematocrit 28.9 % (41.0-53.0); Hemoglobin 9.3 g/dL (13.5-16.0); Immature Granulocytes % (Auto) 1 % (0-0); Immature Granulocytes Auto 0.03 Thou/mm3 (0.00-0.00); Lymphocytes # (Auto) 0.7 Thou/mm3 (1.0-4.8); Lymphocytes % (Auto) 12 % (10-50); Mean Corpuscular HGB Conc 32.2 g/dl (31.0-37.0); Mean Corpuscular Hemoglobin 27.2 pg (25.0-35.0); Mean Corpuscular Volume 85 fL (80-100); Monocytes # (Auto) 0.6 Thou/mm3 (0.0-0.8); Monocytes % (Auto) 10 % (0-12); Neutrophils # (Auto) 4.2 Thou/mm3 (1.8-7.7); Neutrophils % (Auto) 75 % (37-80); Nucleated Red Blood Cell % 0 /100 WBC (0); RDW Standard Deviation 54.4 fL (35.1-43.9); Red Blood Count 3.42 Miln/mm3 (4.50-5.90); White Blood Count 5.7 Thou/mm3 (3.8-10.6)
[2024-05-03 04:43] LABS: Platelet Count 36 Thou/mm3 (140-440)
[2024-05-03 04:56] LABS: INR 1.7 (0.9-1.3); Prothrombin Time 17.5 Seconds (9.0-12.2)
[2024-05-03 05:07] LABS: Slide Review Platelets confirmed
[2024-05-03 05:10] LABS: Alanine Aminotransferase 519 U/L (10-49); Albumin, Serum 3.2 gm/dL (3.5-5.0); Albumin/Globulin Ratio 1.4 (1.2-2.2); Alkaline Phosphatase 88 U/L (46-116); Anion Gap 12 (7-16); Aspartate Amino Transferase 104 U/L (0-34); BUN/Creatinine Ratio 16 Ratio (12-20); Bilirubin,Total 12.9 mg/dL (0.3-1.2); Blood Urea Nitrogen 11 mg/dL (9-23); Calcium (Corrected) 8.6 mg/dL (8.5-10.1); Carbon Dioxide 19.4 mMol/L (20.0-31.0); Chloride 114 mMol/L (98-107); Creatinine (Component) 0.7 mg/dL (0.6-1.3); Estimated Creatinine Clearance 91.4 mL/min (>60); Globulin 2.3 gm/dL (2.3-3.5); Glucose 104 mg/dL (74-106); Osmolality,Calculated 288 (275-295); Potassium 3.3 mMol/L (3.4-5.1); Sodium 145 mMol/L (136-145); Total Protein 5.5 gm/dL (5.7-8.2); eGFR > 60 See Note
[2024-05-03 08:00] VITALS: BP 148/78; PULSE 58; PULSE 69; RESP 20; TEMP 36.2; O2SAT 97
--- NOTE | 2024-05-03 08:02 | PC.NURSE ---
Contacted Dr. Simons to inform him that the patient has not had a bowel movement since 04/29. Patient does not have any pain at this time. Bowel sounds active.
[2024-05-03] MEDS: POTASSIUM PHOS 22.5 MMOL in SODIUM CHLORIDE 0.9% 500 ML 500 ML 82.778 MMOL IV (08:12)
[2024-05-03] MEDS: PANTOPRAZOLE INJ 40 MG VIAL IV ×2 (08:12→20:40)
[2024-05-03] MEDS: THIAMINE INJ 100 MG/ML VIAL 2 ML IVP ×2 (08:12→20:40)
[2024-05-03] MEDS: DEXTROSE 5%-0.45% NS 1,000 ML 100 ML IV (09:11)
[2024-05-03 10:24] LABS: Amphetamine/Methamp Scrn,U Negative (Negative); Barbiturate Screen,Urine Negative (Negative); Benzodiazepines Screen,Urine Negative (Negative); Benzoylecgonine Screen, Ur Negative (Negative); Fentanyl Screen,Urine Negative (Negative); Opiate Screen,Urine Negative (Negative); THC Screen,Urine Negative (Negative)
--- NOTE | 2024-05-03 10:55 | ESPR_ITS ---
<Statement entered by Vaishali Monroy MD - 05/08/24 21:50> I reviewed above note and agree with findings and plans. I have also personally examined the patient with medicine team and went over assessment and plan with medical team including help desk intern and resident physician. <Statement entered by Amado Cooper MD - 05/03/24 11:08> I saw and examined the patient, and I agree with current management stated by Dr Ronak MD,PGY1. Plan of care was discussed with the attending physician and resident physician. Disclaimer: Despite multiple revisions, due to the dictation software being used, the document bellow may not be free of grammatical errors including phonetic/typographic errors. However, this does not deter from our commitment to providing health care in the patient's best interest in mind. Dr. Kenneth MD, PGY 2 Documentation for date of: 05/03/24 Subjective Subjective Interval history: Benjamin Villarreal is a 57-y/o male with a PMHx of HTN, HLD, DM, alcohol use admitted on 04/27 for hematemesis and hematochezia. EGD on 04/28 showed grade 3 varices status post band ligation. GI recommended octreotide 50 mcg/h for 5 days and Protonix drip that have since finished. Throughout hospitalization, received 4 units PRBC, 1 unit FFP, 1 unit platelets. 05/01: Seen and examined at bedside in telemetry. No acute overnight events reported. Needs to be on octreotide drip and Protonix drip ended on 04/30 and thus started on IV pushes twice daily. Per GI, octreotide drip to be continued until tomorrow. Hemoglobin has remained stable and LFTs continue to improve daily. T bili uptrending, likely due to acute liver failure vs gallbladder pathology as ALP within normal limits. 05/02: Patient seen and examined at bedside this morning. Overnight code melgoza was called due to alcohol withdrawal and patient was transferred to telemetry. Patient CIWA score at bedside was 29, however he is responding appropriately to IV Ativan. Vitals stable, labs reviewed and significant for thrombocytopenia, hypokalemia (repleted), hyperbilirubinemia. LFTs are downtrending. Patient to complete octreotide drip today however will remain inpatient due to CIWA protocol. Will reevaluate Lille score to determine if steroids are beneficial and alcoholic hepatitis. 05/03: Seen and examined at bedside in telemetry. Ativan changed from every 4 hours to every 2 hours and CIWA trending downwards (13, 17, 27, 27). Otherwise, octreotide and Protonix drips have finished their course and will continue Protonix IV twice daily. Hemoglobin is remained stable at 9.3 and LFTs downtrending. However, T. bili continues to uptrend and will continue to monitor. Potassium 3.3 and repleted with K-Phos. Also started D5 given the patient was n.p.o. and for developing NAGMA. Given that withdrawal symptoms started 5 days at her admission, U tox obtained and negative. Exam Vital Signs Temp Pulse Resp BP Pulse Ox O2 Del Method O2 Flow Rate 97.2 F 69 20 148/78 H 97 Room Air 3 05/03/24 08:00 05/03/24 08:00 05/03/24 08:00 05/03/24 08:00 05/03/24 08:00 05/03/24 08:00 05/03/24 08:00 Narrative Exam General: alert and orientated to name/year but not place, no acute distress HEENT: scleral icterus, NC/AT, mucous membranes moist Cardiovascular: regular rate and rhythm, S1/S2 present, no murmurs appreciated Pulmonary: clear to auscultation bilaterally, no rales/rhonchi/wheezes Abdominal: soft, non-tender, non-distended, no rebound/guarding, normal bowel sounds present Musculoskeletal: normal ROM, no peripheral edema Skin: jaundice, warm and dry, intact, no rashes Neuro: no visual or auditory hallucinations Objective Labs 05/03/24 04:08 05/03/24 04:08 Labs: Laboratory Results - last 24 hr 05/03/24 05/03/24 04:08 09:28 WBC 5.7 RBC 3.42 L Hgb 9.3 L Hct 28.9 L MCV 85 MCH 27.2 MCHC 32.2 RDW Std Deviation 54.4 H Plt Count 36 L Neut % (Auto) 75 Lymph % (Auto) 12 [place] % (Auto) 10 Eos % (Auto) 3 Baso % (Auto) 0 Neut # (Auto) 4.2 Lymph # (Auto) 0.7 L [place] # (Auto) 0.6 Eos # (Auto) 0.2 Baso # (Auto) 0.0 Immature Gran # (Auto) 0.03 H Absolute Nucleated RBC 0.00 Immature Gran % 1 H Nucleated RBC % 0 PT 17.5 H INR 1.7 H Sodium 145 Potassium 3.3 L Chloride 114 H Carbon Dioxide 19.4 L Anion Gap 12 BUN 11 Creatinine 0.7 Estim Creat Clear Calc 91.4 eGFR > 60 BUN/Creatinine Ratio 16 Glucose 104 Calculated Osmolality 288 Calcium 8.0 L Corrected Calcium 8.6 Total Bilirubin 12.9 H D AST 104 H ALT 519 H* Alkaline Phosphatase 88 Total Protein 5.5 L Albumin 3.2 L Globulin 2.3 Albumin/Globulin Ratio 1.4 Urine Opiates Screen Negative Urine Fentanyl Screen Negative Ur Barbiturates Screen Negative U Amphetamin/Meth Scrn Negative U Benzodiazepines Scrn Negative U Cocaine Metab Screen Negative U Marijuana (THC) Screen Negative Misc Test Result Platelets confirmed ABG Interpretation ABG results: 04/27/24 23:20 VBG pH 7.29 L VBG pCO2 27 L VBG pO2 35 VBG Base Excess -12 L Quality Measures Quality Measures VTE prophylaxis Assessment & Plan Assessment Current Active Medications: Generic Name Dose Route Start Last Admin Trade Name Freq PRN Reason Stop Dose Admin Acetaminophen 325 mg 04/27/24 22:48 Acetaminophen 325 Mg Tablet PO 05/27/24 22:47 Q6H PRN Pain (1-3) & Fever >101.5 Bisacodyl 10 mg 05/03/24 09:38 Bisacodyl 10 Mg Supp ID 06/02/24 09:37 QDAY PRN Constipation Protocol Dextrose 25 ml 04/28/24 01:59 Dextrose 50%-Water Inj 50 Ml Syringe IV 05/28/24 01:58 Q15MIN PRN BG 50-70 responsive npo pt Dextrose 50 ml 04/28/24 01:59 Dextrose 50%-Water Inj 50 Ml Syringe IV 05/28/24 01:58 Q15MIN PRN BG <50 OR BG <70 & pt unresponsive Folic Acid 1 mg 05/02/24 17:00 05/02/24 17:42 Folic Acid Inj 1 Mg/0.2 Ml IVP 06/01/24 16:59 1 mg QDAY SREE Administration Glucagon 1 mg 04/28/24 01:59 Glucagon Inj 1 Mg Vial IM Q15MIN PRN BG <70, and no IV access Ceftriaxone Sodium 1,000 mg/ 50 mls @ 100 mls/hr 04/28/24 21:00 05/02/24 20:21 Sodium Chloride IV 05/05/24 20:59 100 mls/hr HS SREE Administration Potassium Phosphate 22.5 mmol/ 507.5 mls @ 82.778 mls/hr 05/03/24 07:47 05/03/24 08:12 Sodium Chloride IV 05/03/24 13:54 82.778 mls/hr X1 ONE Administration Dextrose/Sodium Chloride 1,000 mls @ 100 mls/hr 05/03/24 08:09 05/03/24 09:11 D5-1/2ns IV 05/03/24 18:08 100 mls/hr X1 ONE Administration Insulin Human Lispro 0 unit 04/29/24 11:45 05/03/24 07:35 Insulin Lispro (Admelog) 1 Unit/0.01 Ml Unit SC 05/29/24 11:44 Not Given AC SREE Protocol Lorazepam 0.5 mg 05/03/24 01:09 Lorazepam 2 Mg/Ml Vial IV 05/08/24 01:08 Q2HR PRN CIWA SCORE 8-13 Lorazepam 1 mg 05/03/24 01:09 Lorazepam 2 Mg/Ml Vial IV 05/08/24 01:08 Q2HR PRN CIWA SCORE 14-19 Lorazepam 2 mg 05/03/24 01:09 Lorazepam 2 Mg/Ml Vial IV 05/08/24 01:08 Q2HR PRN CIWA SCORE 20-25 Metoclopramide HCl 5 mg 04/29/24 00:00 05/03/24 05:21 Metoclopramide Inj 5 Mg/Ml Vial 2 Ml IVP 05/29/24 00:00 5 mg Q6HR SREE Administration Protocol Pantoprazole Sodium 40 mg 05/01/24 09:00 05/03/24 08:12 Pantoprazole Inj 40 Mg Vial IV 05/31/24 08:59 40 mg BID SREE Administration Prednisone 40 mg 05/03/24 10:30 Prednisone 20 Mg Tablet PO 05/10/24 10:23 QAM SREE Thiamine HCl 100 mg 05/03/24 09:00 05/03/24 08:12 Thiamine Inj 100 Mg/Ml Vial 2 Ml IVP 06/02/24 08:59 100 mg BID SREE Administration Plan Benjamin Villarreal is a 57-y/o male with a PMHx of HTN, HLD, DM, alcohol use admitted on 04/27 for hematemesis and hematochezia. EGD on 04/28 showed grade 3 varices status post band ligation. GI recommended octreotide 50 mcg/h for 5 days and Protonix drip that have since finished. Throughout hospitalization, received 4 units PRBC, 1 unit FFP, 1 unit platelets. #Alcohol withdrawal #Alcohol use disorder Code melgoza overnight for withdrawal symptoms. CIWA peaked at 33 on 05/02 and has downtrended since. On 05/03, not having visual or auditory hallucinations and orientated x2. Withdrawal symptoms significantly worsened 6 days after admission, so repeat U- tox obtained. ? Continue CIWA protocol with Ativan IV (not tolerating p.o. at this time) -> q2hr PRN ? Nurse swallow screen to restart diet ? Thiamine, folic acid, multivitamin ? Consider ICU consult for Precedex drip versus starting phenobarbital ? U-tox on 05/03 negative ? Follow-up blood alcohol level #Grade 3 esophageal varices status post band ligation #Upper GI bleed, stable #Acute blood loss anemia, stable History of drinking alcohol since 12 years old and has been drinking 7-8 beers daily for the last few months. ? GI consulted, appreciate recommendations ? Octreotide drip (04/28-05/02) finished ? Protonix drip (04/27-04/30) -> IV BID ? Ceftriaxone 1 g daily (04/27-) for SBP prophylaxis ? Monitor hemoglobin #Hyperbilirubinemia, uptrending Liver US: Gallbladder wall thickened 0.7 cm with probable edema, CBD 0.3 cm Likely secondary to acute liver failure and will continue to monitor for now. ? Continue to monitor; expect t bili to lag behind LFTs #Non-anion gap metabolic acidosis No episodes of diarrhea while hospitalized for other GI losses. Thus, suspect renal etiology. ? D5/0.45% NS #Alcoholic hepatitis #Acute liver failure #Coagulopathy #Thrombocytopenia MELD NA score of 21: 7 to 10% mortality Child-Garcia score of 10 Maddrey score of 35: Good prognosis with steroids ? Prednisone 40 mg daily ? Lille score: 0.595, poor prognosis and may be nonresponder to steroids; consider alternative therapies and/or referral for transplant ? Continue to monitor LFTs daily => downtrending ? Abstinence from alcohol #Hyperkalemia, resolved #Anion gap metabolic acidosis, secondary to lactic acidosis, resolved #Hypokalemia Potassium 3.3, repleted with K-phos ? Monitor daily labs #JEANIE, resolved ? Avoid nephrotoxic agents, renally dose medications #HFpEF (55 to 60%) Echo on 04/28: EF 55 to 60%, grade 1 diastolic dysfunction. Moderate and mild AI. ? Recommend GDMT outpatient #T2DM A1c 6.7% ? SSI Hospital management: Disposition: continue to monitor for alcohol withdrawal Fluids: D5-0.45% NS 1 L at 100 cc/hr Diet: NPO, pending nurse swallow Lines: PIV DVT prophylaxis: SCDs given GI bleed GI prophylaxis: pantoprazole 40 mg IV BID CODE STATUS: full code ----- Plan discussed with attending physician Dr. Monroy and senior resident physician Dr. Kenneth Simons MD PGY-1 Internal Medicine
[2024-05-03] MEDS: FOLIC ACID INJ 1 MG/0.2 ML IVP (10:58)
[2024-05-03] MEDS: predniSONE 20 MG TABLET 40 MG PO (10:58)
[2024-05-03] MEDS: bisacodyL 10 MG SUPP PR (11:38)
[2024-05-03 11:52] LABS: Magnesium 1.8 mg/dL (1.6-2.6); Phosphorous 3.8 mg/dL (2.4-5.1)
[2024-05-03 12:00] VITALS: BP 159/86; PULSE 62; PULSE 72; RESP 16; TEMP 36.3; O2SAT 98
--- NOTE | 2024-05-03 15:49 | ESPR_ITS ---
Documentation for date of: 05/03/24 Subjective Subjective Interval history: Patient evaluated hemoglobin hematocrit 9.3 and 28.9 Exam Vital Signs Temp Pulse Resp BP Pulse Ox O2 Del Method O2 Flow Rate 97.3 F 72 16 159/86 H 98 Room Air 3 05/03/24 12:00 05/03/24 12:00 05/03/24 12:00 05/03/24 12:00 05/03/24 12:00 05/03/24 12:00 05/03/24 08:00 Objective Labs 05/03/24 04:08 05/03/24 04:08 Labs: Laboratory Results - last 24 hr 05/03/24 05/03/24 05/03/24 04:08 09:28 11:25 WBC 5.7 RBC 3.42 L Hgb 9.3 L Hct 28.9 L MCV 85 MCH 27.2 MCHC 32.2 RDW Std Deviation 54.4 H Plt Count 36 L Neut % (Auto) 75 Lymph % (Auto) 12 [place] % (Auto) 10 Eos % (Auto) 3 Baso % (Auto) 0 Neut # (Auto) 4.2 Lymph # (Auto) 0.7 L [place] # (Auto) 0.6 Eos # (Auto) 0.2 Baso # (Auto) 0.0 Immature Gran # (Auto) 0.03 H Absolute Nucleated RBC 0.00 Immature Gran % 1 H Nucleated RBC % 0 PT 17.5 H INR 1.7 H Sodium 145 Potassium 3.3 L Chloride 114 H Carbon Dioxide 19.4 L Anion Gap 12 BUN 11 Creatinine 0.7 Estim Creat Clear Calc 91.4 eGFR > 60 BUN/Creatinine Ratio 16 Glucose 104 Calculated Osmolality 288 Calcium 8.0 L Corrected Calcium 8.6 Phosphorus 3.8 Magnesium 1.8 Total Bilirubin 12.9 H D AST 104 H ALT 519 H* Alkaline Phosphatase 88 Total Protein 5.5 L Albumin 3.2 L Globulin 2.3 Albumin/Globulin Ratio 1.4 Urine Opiates Screen Negative Urine Fentanyl Screen Negative Ur Barbiturates Screen Negative U Amphetamin/Meth Scrn Negative U Benzodiazepines Scrn Negative U Cocaine Metab Screen Negative U Marijuana (THC) Screen Negative Misc Test Result Platelets confirmed Impressions Impression: Upper GI bleed status post band ligation of the esophageal varices Gastritis ABG Interpretation ABG results: 04/27/24 23:20 VBG pH 7.29 L VBG pCO2 27 L VBG pO2 35 VBG Base Excess -12 L Assessment & Plan A&P Narrative # Hematemesis # Hematochezia in the setting of chronic liver disease secondary to alcohol Plan Case discussed with the emergency room physician campus administrative assistant Serial CBC Octreotide 50 mcg IV push and 50 mcg/h continuous infusion Protonix drip at 8 mg/h N.p.o. Consent obtained for fiberoptic esophagogastroduodenoscopy with possible therapeutic intervention under intravenous moderate sedation and scheduled Prognosis is guarded Advised the patient to be completely abstinent from alcohol otherwise the prognosis is much worse Time Spent With Patient Time: Total time spent is greater than 50% in coordination of care (as documented) at patient's floor/unit and/or counseling patient:
[2024-05-03 16:00] VITALS: BP 157/90; PULSE 52; PULSE 54; RESP 16; TEMP 36.3; O2SAT 98
[2024-05-03 20:00] VITALS: BP 158/94; PULSE 62; PULSE 71; RESP 16; TEMP 36.5; O2SAT 95
[2024-05-03] MEDS: cefTRIAXone 1,000 MG in SODIUM CHLORIDE 0.9% (Popper) 50 ML 100 MG IV (20:42)
[2024-05-04] VITALS: BP 152/87; PULSE 49; PULSE 62; RESP 16; TEMP 36.1; O2SAT 96
[2024-05-04] MEDS: METOCLOPRAMIDE INJ 5 MG/ML VIAL 2 ML IVP ×5 (00:45→23:19)
[2024-05-04 04:00] VITALS: BP 142/69; PULSE 57; PULSE 62; RESP 16; TEMP 36.5; O2SAT 97
[2024-05-04 05:42] LABS: Basophils % (Auto) 0 % (0-2.5); Eosinophils % (Auto) 0 % (0-10); Hematocrit 31.7 % (41.0-53.0); Hemoglobin 10.4 g/dL (13.5-16.0); Immature Granulocytes % (Auto) 1 % (0-0); Immature Granulocytes Auto 0.03 Thou/mm3 (0.00-0.00); Lymphocytes # (Auto) 0.4 Thou/mm3 (1.0-4.8); Lymphocytes % (Auto) 5 % (10-50); Mean Corpuscular HGB Conc 32.8 g/dl (31.0-37.0); Mean Corpuscular Hemoglobin 27.2 pg (25.0-35.0); Mean Corpuscular Volume 83 fL (80-100); Monocytes # (Auto) 0.2 Thou/mm3 (0.0-0.8); Monocytes % (Auto) 3 % (0-12); Neutrophils # (Auto) 5.9 Thou/mm3 (1.8-7.7); Neutrophils % (Auto) 91 % (37-80); Nucleated Red Blood Cell % 0 /100 WBC (0); RDW Standard Deviation 54.9 fL (35.1-43.9); Red Blood Count 3.82 Miln/mm3 (4.50-5.90); White Blood Count 6.5 Thou/mm3 (3.8-10.6)
[2024-05-04 05:43] VITALS: BMI 31.4
[2024-05-04 06:09] LABS: Platelet Count 52 Thou/mm3 (140-440)
[2024-05-04 06:23] LABS: Slide Review Platelets confirmed
[2024-05-04 06:33] LABS: Alanine Aminotransferase 427 U/L (10-49); Albumin, Serum 3.3 gm/dL (3.5-5.0); Albumin/Globulin Ratio 1.3 (1.2-2.2); Alkaline Phosphatase 104 U/L (46-116); Anion Gap 10 (7-16); Aspartate Amino Transferase 75 U/L (0-34); BUN/Creatinine Ratio 14 Ratio (12-20); Bilirubin,Total 15.6 mg/dL (0.3-1.2); Blood Urea Nitrogen 10 mg/dL (9-23); Calcium 8.4 mg/dL (8.3-10.6); Carbon Dioxide 20.5 mMol/L (20.0-31.0); Chloride 112 mMol/L (98-107); Creatinine (Component) 0.7 mg/dL (0.6-1.3); Estimated Creatinine Clearance 91.4 mL/min (>60); Globulin 2.5 gm/dL (2.3-3.5); Glucose 140 mg/dL (74-106); Magnesium 1.8 mg/dL (1.6-2.6); Osmolality,Calculated 284 (275-295); Phosphorous 3.5 mg/dL (2.4-5.1); Potassium 3.8 mMol/L (3.4-5.1); Sodium 142 mMol/L (136-145); Total Protein 5.8 gm/dL (5.7-8.2); eGFR > 60 See Note
[2024-05-04 08:00] VITALS: BP 142/70; PULSE 61; PULSE 87; RESP 20; TEMP 36.8; O2SAT 96
[2024-05-04] MEDS: INSULIN LISPRO (AdmeLOG) 1 UNIT/0.01 ML UNIT SC ×3 (08:35→16:33)
[2024-05-04] MEDS: PANTOPRAZOLE INJ 40 MG VIAL IV ×2 (08:37→20:10)
[2024-05-04] MEDS: THIAMINE INJ 100 MG/ML VIAL 2 ML IVP ×2 (08:40→20:10)
[2024-05-04] MEDS: predniSONE 20 MG TABLET 40 MG PO (08:41)
[2024-05-04] MEDS: FOLIC ACID INJ 1 MG/0.2 ML IVP (09:15)
--- NOTE | 2024-05-04 11:24 | ESPR_ITS ---
<Statement entered by Amado Cooper MD - 05/04/24 15:20> Patient was seen and examined at the bedside. Patient was alert however drowsy due to Ativan. His CIWA came back 3. Patient's T. bili has been uptrending. Will keep the patient for monitoring T. bili. Ceftriaxone was discontinued as patient completed course of antibiotic for SBP. Ordered PT evaluation. Will continue with current management. All labs and orders were reviewed. I saw and examined the patient, and I agree with current management stated by Dr Ronak MD,PGY1. Plan of care was discussed with the attending physician and resident physician. Disclaimer: Despite multiple revisions, due to the dictation software being used, the document bellow may not be free of grammatical errors including phonetic/typographic errors. However, this does not deter from our commitment to providing health care in the patient's best interest in mind. Dr. Kenneth MD, PGY 2 Documentation for date of: 05/04/24 Subjective Subjective Interval history: Benjamin Villarreal is a 57-y/o male with a PMHx of HTN, HLD, DM, alcohol use admitted on 04/27 for hematemesis and hematochezia. EGD on 04/28 showed grade 3 varices status post band ligation. GI recommended octreotide 50 mcg/h for 5 days and Protonix drip that have since finished. Throughout hospitalization, received 4 units PRBC, 1 unit FFP, 1 unit platelets. 05/01: Seen and examined at bedside in telemetry. No acute overnight events reported. Needs to be on octreotide drip and Protonix drip ended on 04/30 and thus started on IV pushes twice daily. Per GI, octreotide drip to be continued until tomorrow. Hemoglobin has remained stable and LFTs continue to improve daily. T bili uptrending, likely due to acute liver failure vs gallbladder pathology as ALP within normal limits. 05/02: Patient seen and examined at bedside this morning. Overnight code melgoza was called due to alcohol withdrawal and patient was transferred to telemetry. Patient CIWA score at bedside was 29, however he is responding appropriately to IV Ativan. Vitals stable, labs reviewed and significant for thrombocytopenia, hypokalemia (repleted), hyperbilirubinemia. LFTs are downtrending. Patient to complete octreotide drip today however will remain inpatient due to CIWA protocol. Will reevaluate Lille score to determine if steroids are beneficial and alcoholic hepatitis. 05/03: Seen and examined at bedside in telemetry. Ativan changed from every 4 hours to every 2 hours and CIWA trending downwards (13, 17, 27, 27). Otherwise, octreotide and Protonix drips have finished their course and will continue Protonix IV twice daily. Hemoglobin is remained stable at 9.3 and LFTs downtrending. However, T. bili continues to uptrend and will continue to monitor. Potassium 3.3 and repleted with K-Phos. Also started D5 given the patient was n.p.o. and for developing NAGMA. Given that withdrawal symptoms started 5 days at her admission, U tox obtained and negative. 05/04: Seen and examined at bedside in telemetry. No acute overnight events reported. Patient did not receive Ativan overnight and CIWA has remained at 3 since 10 AM on 05/03. Hemoglobin continues to remain stable and improving and LFTs continue to downtrend. However, T. bili again is uptrending and will continue to monitor. Consider HIDA scan but patient does not endorse abdominal pain and ALP WNL. At this time, will continue to monitor total bilirubin and plan for discharge upon improvement. Exam Vital Signs Temp Pulse Resp BP Pulse Ox O2 Del Method O2 Flow Rate 98.2 F 61 20 142/70 H 96 Room Air 3 05/04/24 08:00 05/04/24 08:00 05/04/24 08:00 05/04/24 08:00 05/04/24 08:00 05/04/24 08:00 05/03/24 08:00 Narrative Exam General: alert and orientated x3e, no acute distress HEENT: scleral icterus, NC/AT, mucous membranes moist Cardiovascular: regular rate and rhythm, S1/S2 present, no murmurs appreciated Pulmonary: clear to auscultation bilaterally, no rales/rhonchi/wheezes Abdominal: soft, non-tender, non-distended, no rebound/guarding, normal bowel sounds present Musculoskeletal: normal ROM, no peripheral edema Skin: jaundice, warm and dry, intact, no rashes Neuro: no visual or auditory hallucinations Objective Labs 05/04/24 05:27 05/04/24 05:27 Labs: Laboratory Results - last 24 hr 05/03/24 05/04/24 11:25 05:27 WBC 6.5 RBC 3.82 L Hgb 10.4 L Hct 31.7 L MCV 83 MCH 27.2 MCHC 32.8 RDW Std Deviation 54.9 H Plt Count 52 L D Neut % (Auto) 91 H Lymph % (Auto) 5 L [place] % (Auto) 3 Eos % (Auto) 0 Baso % (Auto) 0 Neut # (Auto) 5.9 Lymph # (Auto) 0.4 L [place] # (Auto) 0.2 Eos # (Auto) 0.0 Baso # (Auto) 0.0 Immature Gran # (Auto) 0.03 H Absolute Nucleated RBC 0.00 Immature Gran % 1 H Nucleated RBC % 0 Sodium 142 Potassium 3.8 D Chloride 112 H Carbon Dioxide 20.5 Anion Gap 10 BUN 10 Creatinine 0.7 Estim Creat Clear Calc 91.4 eGFR > 60 BUN/Creatinine Ratio 14 Glucose 140 H Calculated Osmolality 284 Calcium 8.4 Corrected Calcium 9.0 Phosphorus 3.8 3.5 Magnesium 1.8 1.8 Total Bilirubin 15.6 H D AST 75 H ALT 427 H Alkaline Phosphatase 104 Total Protein 5.8 Albumin 3.3 L Globulin 2.5 Albumin/Globulin Ratio 1.3 Misc Test Result Platelets confirmed ABG Interpretation ABG results: 04/27/24 23:20 VBG pH 7.29 L VBG pCO2 27 L VBG pO2 35 VBG Base Excess -12 L Quality Measures Quality Measures VTE prophylaxis Assessment & Plan Assessment Current Active Medications: Generic Name Dose Route Start Last Admin Trade Name Yuly PRN Reason Stop Dose Admin Acetaminophen 325 mg 04/27/24 22:48 Acetaminophen 325 Mg Tablet PO 05/27/24 22:47 Q6H PRN Pain (1-3) & Fever >101.5 Bisacodyl 10 mg 05/03/24 09:38 05/03/24 11:38 Bisacodyl 10 Mg Supp [place] 06/02/24 09:37 10 mg QDAY PRN Administration Constipation Protocol Dextrose 25 ml 04/28/24 01:59 Dextrose 50%-Water Inj 50 Ml Syringe IV 05/28/24 01:58 Q15MIN PRN BG 50-70 responsive npo pt Dextrose 50 ml 04/28/24 01:59 Dextrose 50%-Water Inj 50 Ml Syringe IV 05/28/24 01:58 Q15MIN PRN BG <50 OR BG <70 & pt unresponsive Folic Acid 1 mg 05/02/24 17:00 05/04/24 09:15 Folic Acid Inj 1 Mg/0.2 Ml IVP 06/01/24 16:59 1 mg QDAY SREE Administration Glucagon 1 mg 04/28/24 01:59 Glucagon Inj 1 Mg Vial IM Q15MIN PRN BG <70, and no IV access Insulin Human Lispro 0 unit 04/29/24 11:45 05/04/24 08:35 Insulin Lispro (Admelog) 1 Unit/0.01 Ml Unit SC 05/29/24 11:44 1 unit AC SREE Administration Protocol Lorazepam 0.5 mg 05/03/24 01:09 Lorazepam 2 Mg/Ml Vial IV 05/08/24 01:08 Q2HR PRN CIWA SCORE 8-13 Lorazepam 1 mg 05/03/24 01:09 Lorazepam 2 Mg/Ml Vial IV 05/08/24 01:08 Q2HR PRN CIWA SCORE 14-19 Lorazepam 2 mg 05/03/24 01:09 Lorazepam 2 Mg/Ml Vial IV 05/08/24 01:08 Q2HR PRN CIWA SCORE 20-25 Metoclopramide HCl 5 mg 04/29/24 00:00 05/04/24 05:03 Metoclopramide Inj 5 Mg/Ml Vial 2 Ml IVP 05/29/24 00:00 5 mg Q6HR SREE Administration Protocol Pantoprazole Sodium 40 mg 05/01/24 09:00 05/04/24 08:37 Pantoprazole Inj 40 Mg Vial IV 05/31/24 08:59 40 mg BID SREE Administration Prednisone 40 mg 05/03/24 10:30 05/04/24 08:41 Prednisone 20 Mg Tablet PO 05/10/24 10:23 40 mg QAM SREE Administration Thiamine HCl 100 mg 05/03/24 09:00 05/04/24 08:40 Thiamine Inj 100 Mg/Ml Vial 2 Ml IVP 06/02/24 08:59 100 mg BID SREE Administration Plan Benjamin Villarreal is a 57-y/o male with a PMHx of HTN, HLD, DM, alcohol use admitted on 04/27 for hematemesis and hematochezia. EGD on 04/28 showed grade 3 varices status post band ligation. GI recommended octreotide 50 mcg/h for 5 days and Protonix drip that have since finished. Throughout hospitalization, received 4 units PRBC, 1 unit FFP, 1 unit platelets. #Alcohol withdrawal, resolved #Alcohol use disorder Code melgoza overnight for withdrawal symptoms. CIWA peaked at 33 on 05/02 and has downtrended since. On 05/03, not having visual or auditory hallucinations and orientated x2. Withdrawal symptoms significantly worsened 6 days after admission, so repeat U- tox obtained. ? Continue CIWA protocol with Ativan IV (not tolerating p.o. at this time) -> q2hr PRN ? Thiamine, folic acid, multivitamin ? U-tox on 05/03 negative ? Follow-up blood alcohol level #Grade 3 esophageal varices status post band ligation #Upper GI bleed, stable #Acute blood loss anemia, stable History of drinking alcohol since 12 years old and has been drinking 7-8 beers daily for the last few months. ? GI consulted, appreciate recommendations ? Octreotide drip (04/28-05/02) finished ? Protonix drip (04/27-04/30) -> IV BID ? Ceftriaxone 1 g daily (04/27-05/03) for SBP prophylaxis -> DC'd 05/04 after full course ? Monitor hemoglobin #Hyperbilirubinemia, uptrending Liver US: Gallbladder wall thickened 0.7 cm with probable edema, CBD 0.3 cm Likely secondary to acute liver failure and will continue to monitor for now. ? Continue to monitor; expect t bili to lag behind LFTs #Non-anion gap metabolic acidosis No episodes of diarrhea while hospitalized for other GI losses. Thus, suspect renal etiology. ? D5/0.45% NS #Alcoholic hepatitis #Acute liver failure #Coagulopathy #Thrombocytopenia MELD NA score of 21: 7 to 10% mortality Child-Garcia score of 10 Maddrey score of 35: Good prognosis with steroids ? Prednisone 40 mg daily ? Lille score: 0.774, poor prognosis and may be nonresponder to steroids ? Continue to monitor LFTs daily ? Abstinence from alcohol #Hyperkalemia, resolved #Hypokalemia, resolved #Anion gap metabolic acidosis, secondary to lactic acidosis, resolved Potassium 3.3, repleted with K-phos ? Monitor daily labs #JEANIE, resolved ? Avoid nephrotoxic agents, renally dose medications #HFpEF (55 to 60%) Echo on 04/28: EF 55 to 60%, grade 1 diastolic dysfunction. Moderate and mild AI. ? Recommend GDMT outpatient #T2DM A1c 6.7% ? SSI Hospital management: Disposition: continue to monitor for alcohol withdrawal Fluids: none Diet: clear liquid diet Lines: PIV DVT prophylaxis: SCDs given GI bleed GI prophylaxis: pantoprazole 40 mg IV BID CODE STATUS: full code ----- Plan discussed with attending physician Dr. Collins and senior resident physician Dr. Kenneth Simons MD PGY-1 Internal Medicine
[2024-05-04 12:00] VITALS: BP 119/72; PULSE 59; RESP 19; TEMP 36.8; O2SAT 98
[2024-05-04 16:00] VITALS: BP 153/80; PULSE 58; PULSE 66; RESP 17; TEMP 36.9; O2SAT 98
[2024-05-04 20:00] VITALS: BP 139/70; PULSE 63; PULSE 65; RESP 19; TEMP 36.2; O2SAT 98
--- NOTE | 2024-05-04 21:07 | ESPR_ITS ---
Documentation for date of: 05/04/24 Subjective Subjective Interval history: Patient evaluated total bilirubin 15.6 AST ALT 75 and 427 and alk phos of 104 Hemoglobin hematocrit 10.4 and 31.7 Bilirubin trending upwards which is not unusual in this clinical setting Exam Vital Signs Temp Pulse Resp BP Pulse Ox O2 Del Method O2 Flow Rate 97.2 F 63 19 139/70 H 98 Room Air 3 05/04/24 20:00 05/04/24 20:00 05/04/24 20:00 05/04/24 20:00 05/04/24 20:00 05/04/24 20:00 05/03/24 08:00 Objective Labs 05/04/24 05:27 05/04/24 05:27 Labs: Laboratory Results - last 24 hr 04/27/24 05/04/24 21:02 05:27 WBC 6.5 RBC 3.82 L Hgb 10.4 L Hct 31.7 L MCV 83 MCH 27.2 MCHC 32.8 RDW Std Deviation 54.9 H Plt Count 52 L D Neut % (Auto) 91 H Lymph % (Auto) 5 L [place] % (Auto) 3 Eos % (Auto) 0 Baso % (Auto) 0 Neut # (Auto) 5.9 Lymph # (Auto) 0.4 L [place] # (Auto) 0.2 Eos # (Auto) 0.0 Baso # (Auto) 0.0 Immature Gran # (Auto) 0.03 H Absolute Nucleated RBC 0.00 Immature Gran % 1 H Nucleated RBC % 0 Sodium 142 Potassium 3.8 D Chloride 112 H Carbon Dioxide 20.5 Anion Gap 10 BUN 10 Creatinine 0.7 Estim Creat Clear Calc 91.4 eGFR > 60 BUN/Creatinine Ratio 14 Glucose 140 H Calculated Osmolality 284 Calcium 8.4 Corrected Calcium 9.0 Phosphorus 3.5 Magnesium 1.8 Total Bilirubin 15.6 H D AST 75 H ALT 427 H Alkaline Phosphatase 104 Total Protein 5.8 Albumin 3.3 L Globulin 2.5 Albumin/Globulin Ratio 1.3 Misc Test Result Platelets confirmed Crossmatch See Detail Blood Bank Comment FFP Ready Impressions Impression: Upper GI bleed requiring band ligation of the esophageal varices Abnormal LFTs secondary to chronic liver disease due to alcohol Continue current management ABG Interpretation ABG results: 04/27/24 23:20 VBG pH 7.29 L VBG pCO2 27 L VBG pO2 35 VBG Base Excess -12 L Assessment & Plan A&P Narrative # Hematemesis # Hematochezia in the setting of chronic liver disease secondary to alcohol Plan Case discussed with the emergency room physician anesthesiologists' assistant Serial CBC Octreotide 50 mcg IV push and 50 mcg/h continuous infusion Protonix drip at 8 mg/h N.p.o. Consent obtained for fiberoptic esophagogastroduodenoscopy with possible therapeutic intervention under intravenous moderate sedation and scheduled Prognosis is guarded Advised the patient to be completely abstinent from alcohol otherwise the prognosis is much worse Time Spent With Patient Time: Total time spent is greater than 50% in coordination of care (as documented) at patient's floor/unit and/or counseling patient:
[2024-05-05] VITALS: BP 130/73; PULSE 57; PULSE 62; RESP 16; TEMP 36.8; O2SAT 99
--- NOTE | 2024-05-05 03:09 | PC.NURSE ---
[facility] downtime started from 0200 till 0303.
[2024-05-05 04:00] VITALS: BP 140/72; PULSE 68; PULSE 70; RESP 12; TEMP 36.4; O2SAT 98
[2024-05-05] MEDS: METOCLOPRAMIDE INJ 5 MG/ML VIAL 2 ML IVP ×3 (05:11→17:28)
[2024-05-05 05:50] LABS: Basophils % (Auto) 0 % (0-2.5); Eosinophils % (Auto) 0 % (0-10); Hematocrit 28.9 % (41.0-53.0); Hemoglobin 9.8 g/dL (13.5-16.0); Immature Granulocytes % (Auto) 1 % (0-0); Immature Granulocytes Auto 0.05 Thou/mm3 (0.00-0.00); Lymphocytes # (Auto) 0.5 Thou/mm3 (1.0-4.8); Lymphocytes % (Auto) 5 % (10-50); Mean Corpuscular HGB Conc 33.9 g/dl (31.0-37.0); Mean Corpuscular Hemoglobin 27.3 pg (25.0-35.0); Mean Corpuscular Volume 81 fL (80-100); Monocytes # (Auto) 0.6 Thou/mm3 (0.0-0.8); Monocytes % (Auto) 6 % (0-12); Neutrophils # (Auto) 9.7 Thou/mm3 (1.8-7.7); Neutrophils % (Auto) 89 % (37-80); Nucleated Red Blood Cell % 0 /100 WBC (0); Red Blood Count 3.59 Miln/mm3 (4.50-5.90); White Blood Count 10.9 Thou/mm3 (3.8-10.6)
[2024-05-05 05:55] LABS: Platelet Count 73 Thou/mm3 (140-440)
[2024-05-05 05:59] VITALS: BMI 30.3
[2024-05-05 06:27] LABS: Slide Review Platelets confirmed
[2024-05-05 06:30] LABS: Alanine Aminotransferase 329 U/L (10-49); Albumin, Serum 3.1 gm/dL (3.5-5.0); Albumin/Globulin Ratio 1.2 (1.2-2.2); Alkaline Phosphatase 107 U/L (46-116); Anion Gap 10 (7-16); Aspartate Amino Transferase 61 U/L (0-34); BUN/Creatinine Ratio 14 Ratio (12-20); Bilirubin,Total 16.4 mg/dL (0.3-1.2); Blood Urea Nitrogen 10 mg/dL (9-23); Calcium 8.5 mg/dL (8.3-10.6); Calcium (Corrected) 9.2 mg/dL (8.5-10.1); Carbon Dioxide 20.8 mMol/L (20.0-31.0); Chloride 111 mMol/L (98-107); Creatinine (Component) 0.7 mg/dL (0.6-1.3); Estimated Creatinine Clearance 89.9 mL/min (>60); Globulin 2.5 gm/dL (2.3-3.5); Glucose 134 mg/dL (74-106); Magnesium 1.8 mg/dL (1.6-2.6); Osmolality,Calculated 284 (275-295); Phosphorous 2.4 mg/dL (2.4-5.1); Potassium 3.5 mMol/L (3.4-5.1); Sodium 142 mMol/L (136-145); Total Protein 5.6 gm/dL (5.7-8.2); eGFR > 60 See Note
[2024-05-05 08:00] VITALS: BP 137/77; PULSE 63; PULSE 83; RESP 20; TEMP 36.3; O2SAT 100
[2024-05-05] MEDS: THIAMINE INJ 100 MG/ML VIAL 2 ML IVP ×2 (08:36→20:35)
[2024-05-05] MEDS: FOLIC ACID INJ 1 MG/0.2 ML IVP (08:36)
[2024-05-05] MEDS: predniSONE 20 MG TABLET 40 MG PO (08:37)
[2024-05-05] MEDS: PANTOPRAZOLE INJ 40 MG VIAL IV ×2 (08:37→20:35)
--- NOTE | 2024-05-05 10:30 | XR_ITS ---
Examination: WILTON, hepatobiliary radioisotope scan Gallbladder ejection fraction study. Date and time of exam: May 06, 2024 0748 hrs. Indications: Bloody emesis abdominal pain months, elevated total bilirubin Technique: 6.4 mCi of 99M Hepatolite administered. Serial imaging then obtained from immediate through 60 minutes. 1.4 mcg selective catheter Kinevac administered for gallbladder ejection fraction study. Findings: Radioisotope activity within the liver is reasonably homogenous. Gallbladder, common bile duct small bowel activity noted Impression: Gallbladder activity Abnormal gallbladder ejection fraction 5% normal greater than 35%
[2024-05-05 12:00] VITALS: BP 118/65; PULSE 66; PULSE 68; RESP 18; TEMP 36.2; O2SAT 99
--- NOTE | 2024-05-05 13:06 | PC.NURSE ---
Tresa from [place] called and notified RN that HIDA scan can not be done until tomorrow. Dr. Cowart aware and orders ok to feed pt. now and NPO at [place].
--- NOTE | 2024-05-05 14:19 | ESPR_ITS ---
<Statement entered by Amado Cooper MD - 05/05/24 15:19> Patient was seen and examined at the bedside. Patient denied any pain on the right upper quadrant. Labs revealed white count stable and uptrending T. bili. Will follow-up with a HIDA scan tomorrow morning. N.p.o. after midnight. No other active concerns. All labs and orders were reviewed. I saw and examined the patient, and I agree with current management stated by Dr Ronak MD,PGY1. Plan of care was discussed with the attending physician and resident physician. Disclaimer: Despite multiple revisions, due to the dictation software being used, the document bellow may not be free of grammatical errors including phonetic/typographic errors. However, this does not deter from our commitment to providing health care in the patient's best interest in mind. Dr. Kenneth MD, PGY 2 Documentation for date of: 05/05/24 Subjective Subjective Interval history: Benjamin Villarreal is a 57-y/o male with a PMHx of HTN, HLD, DM, alcohol use admitted on 04/27 for hematemesis and hematochezia. EGD on 04/28 showed grade 3 varices status post band ligation. GI recommended octreotide 50 mcg/h for 5 days and Protonix drip that have since finished. Throughout hospitalization, received 4 units PRBC, 1 unit FFP, 1 unit platelets. 05/01: Seen and examined at bedside in telemetry. No acute overnight events reported. Needs to be on octreotide drip and Protonix drip ended on 04/30 and thus started on IV pushes twice daily. Per GI, octreotide drip to be continued until tomorrow. Hemoglobin has remained stable and LFTs continue to improve daily. T bili uptrending, likely due to acute liver failure vs gallbladder pathology as ALP within normal limits. 05/02: Patient seen and examined at bedside this morning. Overnight code melgoza was called due to alcohol withdrawal and patient was transferred to telemetry. Patient CIWA score at bedside was 29, however he is responding appropriately to IV Ativan. Vitals stable, labs reviewed and significant for thrombocytopenia, hypokalemia (repleted), hyperbilirubinemia. LFTs are downtrending. Patient to complete octreotide drip today however will remain inpatient due to CIWA protocol. Will reevaluate Lille score to determine if steroids are beneficial and alcoholic hepatitis. 05/03: Seen and examined at bedside in telemetry. Ativan changed from every 4 hours to every 2 hours and CIWA trending downwards (13, 17, 27, 27). Otherwise, octreotide and Protonix drips have finished their course and will continue Protonix IV twice daily. Hemoglobin is remained stable at 9.3 and LFTs downtrending. However, T. bili continues to uptrend and will continue to monitor. Potassium 3.3 and repleted with K-Phos. Also started D5 given the patient was n.p.o. and for developing NAGMA. Given that withdrawal symptoms started 5 days at her admission, U tox obtained and negative. 05/04: Seen and examined at bedside in telemetry. No acute overnight events reported. Patient did not receive Ativan overnight and CIWA has remained at 3 since 10 AM on 05/03. Hemoglobin continues to remain stable and improving and LFTs continue to downtrend. However, T. bili again is uptrending and will continue to monitor. Consider HIDA scan but patient does not endorse abdominal pain and ALP WNL. At this time, will continue to monitor total bilirubin and plan for discharge upon improvement. 05/05: Seen and examined at bedside in telemetry. No acute overnight events reported. Continues to not receive any ativan and CIWA now 1. Hemoglobin stable, platelets improving, and LFTs downtrending. However, T bili continues to uptrend as well as ALP. Thus, decision made to obtain HIDA scan and follow- up on results. Exam Vital Signs Temp Pulse Resp BP Pulse Ox O2 Del Method O2 Flow Rate 97.2 F 66 18 118/65 99 Room Air 3 05/05/24 12:05/05/24 12:05/05/24 12:05/05/24 12:05/05/24 12:05/05/24 12:05/03/24 08:00 Narrative Exam General: alert and orientated x3e, no acute distress HEENT: scleral icterus, NC/AT, mucous membranes moist Cardiovascular: regular rate and rhythm, S1/S2 present, no murmurs appreciated Pulmonary: clear to auscultation bilaterally, no rales/rhonchi/wheezes Abdominal: soft, non-tender, non-distended, no rebound/guarding, normal bowel sounds present Musculoskeletal: normal ROM, no peripheral edema Skin: jaundice, warm and dry, intact, no rashes Neuro: no visual or auditory hallucinations Objective Labs 05/05/24 05:00 05/05/24 05:00 Labs: Laboratory Results - last 24 hr 05/05/24 05:00 WBC 10.9 H D RBC 3.59 L Hgb 9.8 L Hct 28.9 L MCV 81 MCH 27.3 MCHC 33.9 RDW Std Deviation 53.0 H Plt Count 73 L D Neut % (Auto) 89 H Lymph % (Auto) 5 L [place] % (Auto) 6 Eos % (Auto) 0 Baso % (Auto) 0 Neut # (Auto) 9.7 H Lymph # (Auto) 0.5 L [place] # (Auto) 0.6 Eos # (Auto) 0.0 Baso # (Auto) 0.0 Immature Gran # (Auto) 0.05 H Absolute Nucleated RBC 0.00 Immature Gran % 1 H Nucleated RBC % 0 Sodium 142 Potassium 3.5 Chloride 111 H Carbon Dioxide 20.8 Anion Gap 10 BUN 10 Creatinine 0.7 Estim Creat Clear Calc 89.9 eGFR > 60 BUN/Creatinine Ratio 14 Glucose 134 H Calculated Osmolality 284 Calcium 8.5 Corrected Calcium 9.2 Phosphorus 2.4 Magnesium 1.8 Total Bilirubin 16.4 H D AST 61 H ALT 329 H Alkaline Phosphatase 107 Total Protein 5.6 L Albumin 3.1 L Globulin 2.5 Albumin/Globulin Ratio 1.2 Misc Test Result Platelets confirmed ABG Interpretation ABG results: 04/27/24 23:20 VBG pH 7.29 L VBG pCO2 27 L VBG pO2 35 VBG Base Excess -12 L Quality Measures Quality Measures VTE prophylaxis Assessment & Plan Assessment Current Active Medications: Generic Name Dose Route Start Last Admin Trade Name Freq PRN Reason Stop Dose Admin Acetaminophen 325 mg 04/27/24 22:48 Acetaminophen 325 Mg Tablet PO 05/27/24 22:47 Q6H PRN Pain (1-3) & Fever >101.5 Bisacodyl 10 mg 05/03/24 09:38 05/03/24 11:38 Bisacodyl 10 Mg Supp ID 06/02/24 09:37 10 mg QDAY PRN Administration Constipation Protocol Dextrose 25 ml 04/28/24 01:59 Dextrose 50%-Water Inj 50 Ml Syringe IV 05/28/24 01:58 Q15MIN PRN BG 50-70 responsive npo pt Dextrose 50 ml 04/28/24 01:59 Dextrose 50%-Water Inj 50 Ml Syringe IV 05/28/24 01:58 Q15MIN PRN BG <50 OR BG <70 & pt unresponsive Folic Acid 1 mg 05/02/24 17:00 05/05/24 08:36 Folic Acid Inj 1 Mg/0.2 Ml IVP 06/01/24 16:59 1 mg QDAY SREE Administration Glucagon 1 mg 04/28/24 01:59 Glucagon Inj 1 Mg Vial IM Q15MIN PRN BG <70, and no IV access Insulin Human Lispro 0 unit 04/29/24 11:45 05/05/24 11:16 Insulin Lispro (Admelog) 1 Unit/0.01 Ml Unit SC 05/29/24 11:44 Not Given AC SREE Protocol Lorazepam 0.5 mg 05/03/24 01:09 Lorazepam 2 Mg/Ml Vial IV 05/08/24 01:08 Q2HR PRN CIWA SCORE 8-13 Lorazepam 1 mg 05/03/24 01:09 Lorazepam 2 Mg/Ml Vial IV 05/08/24 01:08 Q2HR PRN CIWA SCORE 14-19 Lorazepam 2 mg 05/03/24 01:09 Lorazepam 2 Mg/Ml Vial IV 05/08/24 01:08 Q2HR PRN CIWA SCORE 20-25 Metoclopramide HCl 5 mg 04/29/24 00:00 05/05/24 11:15 Metoclopramide Inj 5 Mg/Ml Vial 2 Ml IVP 05/29/24 00:00 5 mg Q6HR SREE Administration Protocol Pantoprazole Sodium 40 mg 05/01/24 09:00 05/05/24 08:37 Pantoprazole Inj 40 Mg Vial IV 05/31/24 08:59 40 mg BID SREE Administration Prednisone 40 mg 05/03/24 10:30 05/05/24 08:37 Prednisone 20 Mg Tablet PO 05/10/24 10:23 40 mg QAM SREE Administration Thiamine HCl 100 mg 05/03/24 09:00 05/05/24 08:36 Thiamine Inj 100 Mg/Ml Vial 2 Ml IVP 06/02/24 08:59 100 mg BID SREE Administration Plan Benjamin Villarreal is a 57-y/o male with a PMHx of HTN, HLD, DM, alcohol use admitted on 04/27 for hematemesis and hematochezia. EGD on 04/28 showed grade 3 varices status post band ligation. GI recommended octreotide 50 mcg/h for 5 days and Protonix drip that have since finished. Throughout hospitalization, received 4 units PRBC, 1 unit FFP, 1 unit platelets. #Grade 3 esophageal varices status post band ligation #Upper GI bleed, stable #Acute blood loss anemia, stable History of drinking alcohol since 12 years old and has been drinking 7-8 beers daily for the last few months. ? GI consulted, appreciate recommendations ? Octreotide drip (04/28-05/02) finished ? Protonix drip (04/27-04/30) -> IV BID ? Ceftriaxone 1 g daily (04/27-05/03) for SBP prophylaxis -> DC'd 05/04 after full course ? Monitor hemoglobin #Hyperbilirubinemia, uptrending Liver US: Gallbladder wall thickened 0.7 cm with probable edema, CBD 0.3 cm Likely secondary to acute liver failure and will continue to monitor for now. ? Continue to monitor; expect t bili to lag behind LFTs ? HIDA scan on 05/05 ? NPO after midnight #Alcohol withdrawal, resolved #Alcohol use disorder Code melgoza overnight for withdrawal symptoms. ? CIWA peaked at 33 on 05/02 and has downtrended since. On 05/03, not having visual or auditory hallucinations and orientated x2. Withdrawal symptoms significantly worsened 6 days after admission, so repeat U- tox obtained. ? Continue CIWA protocol with Ativan IV (not tolerating p.o. at this time) -> q2hr PRN ? Thiamine, folic acid, multivitamin ? U-tox on 05/03 negative ? Follow-up blood alcohol level #Non-anion gap metabolic acidosis, resolved No episodes of diarrhea while hospitalized for other GI losses. Thus, suspect renal etiology. #Alcoholic hepatitis #Acute liver failure #Coagulopathy #Thrombocytopenia MELD NA score of 21: 7 to 10% mortality Child-Garcia score of 10 Maddrey score of 35: Good prognosis with steroids ? Prednisone 40 mg daily ? Lille score: 0.774, poor prognosis and may be nonresponder to steroids ? Continue to monitor LFTs daily ? Abstinence from alcohol #Hyperkalemia, resolved #Hypokalemia, resolved #Anion gap metabolic acidosis, secondary to lactic acidosis, resolved Potassium 3.3, repleted with K-phos ? Monitor daily labs #JEANIE, resolved ? Avoid nephrotoxic agents, renally dose medications #HFpEF (55 to 60%) Echo on 04/28: EF 55 to 60%, grade 1 diastolic dysfunction. Moderate and mild AI. ? Recommend GDMT outpatient #T2DM A1c 6.7% ? SSI Hospital management: Disposition: continue to monitor for alcohol withdrawal Fluids: none Diet: diabetic full liquid but NPO after midnight for HIDA scan Lines: PIV DVT prophylaxis: SCDs given GI bleed GI prophylaxis: pantoprazole 40 mg IV BID CODE STATUS: full code ----- Plan discussed with attending physician Dr. Cowart and senior resident physician Dr. Kenneth Simons MD PGY-1 Internal Medicine Attending Provider Attestation/Addendum I have discussed and was present for the essential components of the history, physical examination, diagnosis, and treatment plan with the resident. I agree with the patient's care as documented by the resident and amended herein by me. Nick Cowart, DO. Although this document has been carefully reviewed, there may still be some phonetic and other typographical errors. These errors are purely grammatical due to imperfections in the software program and should not be construed in any way to compromise the substance of the patient's medical care during this visit.
[2024-05-05 16:00] VITALS: BP 141/80; PULSE 74; PULSE 85; RESP 19; TEMP 36.1; O2SAT 97
--- NOTE | 2024-05-05 16:27 | PC.PT ---
Patient will be dc from PT services secondary to patient is I with transfers and ambulation without AD.
[2024-05-05] MEDS: INSULIN LISPRO (AdmeLOG) 1 UNIT/0.01 ML UNIT SC (17:28)
[2024-05-05 20:00] VITALS: BP 136/76; PULSE 63; PULSE 70; RESP 16; TEMP 36.8; O2SAT 98
--- NOTE | 2024-05-05 21:08 | ESPR_ITS ---
Documentation for date of: 05/05/24 Subjective Subjective Interval history: Patient evaluated Hemoglobin hematocrit 9.8 and 28.9 Platelets 72,000 Total bilirubin 16.4 going up little bit every day AST ALT 61 and 329 alk phos of 107 all related to chronic liver disease and no obstruction of the CBD based on the clinical evidence Exam Vital Signs Temp Pulse Resp BP Pulse Ox O2 Del Method O2 Flow Rate 98.3 F 70 16 136/76 H 98 Room Air 3 05/05/24 20:00 05/05/24 20:00 05/05/24 20:00 05/05/24 20:00 05/05/24 20:00 05/05/24 20:00 05/03/24 08:00 Routine Respiratory Exam Comments: Normal to auscultation Routine Abdominal Exam Comments: Soft nontender Objective Labs 05/05/24 05:00 05/05/24 05:00 Labs: Laboratory Results - last 24 hr 05/05/24 05:00 WBC 10.9 H D RBC 3.59 L Hgb 9.8 L Hct 28.9 L MCV 81 MCH 27.3 MCHC 33.9 RDW Std Deviation 53.0 H Plt Count 73 L D Neut % (Auto) 89 H Lymph % (Auto) 5 L [place] % (Auto) 6 Eos % (Auto) 0 Baso % (Auto) 0 Neut # (Auto) 9.7 H Lymph # (Auto) 0.5 L [place] # (Auto) 0.6 Eos # (Auto) 0.0 Baso # (Auto) 0.0 Immature Gran # (Auto) 0.05 H Absolute Nucleated RBC 0.00 Immature Gran % 1 H Nucleated RBC % 0 Sodium 142 Potassium 3.5 Chloride 111 H Carbon Dioxide 20.8 Anion Gap 10 BUN 10 Creatinine 0.7 Estim Creat Clear Calc 89.9 eGFR > 60 BUN/Creatinine Ratio 14 Glucose 134 H Calculated Osmolality 284 Calcium 8.5 Corrected Calcium 9.2 Phosphorus 2.4 Magnesium 1.8 Total Bilirubin 16.4 H D AST 61 H ALT 329 H Alkaline Phosphatase 107 Total Protein 5.6 L Albumin 3.1 L Globulin 2.5 Albumin/Globulin Ratio 1.2 Misc Test Result Platelets confirmed Impressions Impression: Status post band ligation of the esophageal varices Posthemorrhagic anemia Chronic liver disease Continue supportive care ABG Interpretation ABG results: 04/27/24 23:20 VBG pH 7.29 L VBG pCO2 27 L VBG pO2 35 VBG Base Excess -12 L Assessment & Plan A&P Narrative # Hematemesis # Hematochezia in the setting of chronic liver disease secondary to alcohol Plan Case discussed with the emergency room physician hospital medical assistant Serial CBC Octreotide 50 mcg IV push and 50 mcg/h continuous infusion Protonix drip at 8 mg/h N.p.o. Consent obtained for fiberoptic esophagogastroduodenoscopy with possible therapeutic intervention under intravenous moderate sedation and scheduled Prognosis is guarded Advised the patient to be completely abstinent from alcohol otherwise the prognosis is much worse Time Spent With Patient Time: Total time spent is greater than 50% in coordination of care (as documented) at patient's floor/unit and/or counseling patient:
[2024-05-06] VITALS: BP 144/73; PULSE 62; PULSE 63; RESP 12; TEMP 36.9; O2SAT 98
[2024-05-06] MEDS: METOCLOPRAMIDE INJ 5 MG/ML VIAL 2 ML IVP ×5 (00:11→23:04)
[2024-05-06 04:00] VITALS: BP 147/73; PULSE 67; PULSE 70; RESP 17; TEMP 36.1; O2SAT 99
[2024-05-06 05:15] LABS: Basophils % (Auto) 0 % (0-2.5); Eosinophils # (Auto) 0.1 Thou/mm3 (0.0-0.5); Eosinophils % (Auto) 1 % (0-10); Hematocrit 27.9 % (41.0-53.0); Hemoglobin 9.3 g/dL (13.5-16.0); Immature Granulocytes % (Auto) 1 % (0-0); Immature Granulocytes Auto 0.06 Thou/mm3 (0.00-0.00); Lymphocytes # (Auto) 0.7 Thou/mm3 (1.0-4.8); Lymphocytes % (Auto) 8 % (10-50); Mean Corpuscular HGB Conc 33.3 g/dl (31.0-37.0); Mean Corpuscular Hemoglobin 26.9 pg (25.0-35.0); Mean Corpuscular Volume 81 fL (80-100); Monocytes # (Auto) 0.8 Thou/mm3 (0.0-0.8); Monocytes % (Auto) 9 % (0-12); Neutrophils # (Auto) 7.2 Thou/mm3 (1.8-7.7); Neutrophils % (Auto) 81 % (37-80); Nucleated Red Blood Cell % 0 /100 WBC (0); RDW Standard Deviation 54.4 fL (35.1-43.9); Red Blood Count 3.46 Miln/mm3 (4.50-5.90); White Blood Count 8.9 Thou/mm3 (3.8-10.6)
[2024-05-06 05:20] LABS: Platelet Count 76 Thou/mm3 (140-440)
[2024-05-06 05:21] LABS: Slide Review Platelets confirmed
[2024-05-06 05:44] LABS: Alanine Aminotransferase 277 U/L (10-49); Albumin, Serum 3.1 gm/dL (3.5-5.0); Albumin/Globulin Ratio 1.2 (1.2-2.2); Alkaline Phosphatase 115 U/L (46-116); Anion Gap 10 (7-16); Aspartate Amino Transferase 59 U/L (0-34); BUN/Creatinine Ratio 14 Ratio (12-20); Bilirubin,Total 17.7 mg/dL (0.3-1.2); Blood Urea Nitrogen 11 mg/dL (9-23); Calcium 8.4 mg/dL (8.3-10.6); Calcium (Corrected) 9.1 mg/dL (8.5-10.1); Carbon Dioxide 20.1 mMol/L (20.0-31.0); Chloride 112 mMol/L (98-107); Creatinine (Component) 0.8 mg/dL (0.6-1.3); Estimated Creatinine Clearance 78.6 mL/min (>60); Globulin 2.5 gm/dL (2.3-3.5); Glucose 124 mg/dL (74-106); Magnesium 1.9 mg/dL (1.6-2.6); Osmolality,Calculated 283 (275-295); Phosphorous 2.5 mg/dL (2.4-5.1); Potassium 3.2 mMol/L (3.4-5.1); Sodium 142 mMol/L (136-145); Total Protein 5.6 gm/dL (5.7-8.2); eGFR > 60 See Note
[2024-05-06] MEDS: POT PHOS 15 mMol in NS 250 ML 15 MMOL/250 ML BAG 62.5 MMOL IV ×2 (07:28→13:01)
[2024-05-06 08:00] VITALS: BP 143/74; PULSE 61; PULSE 62; RESP 17; TEMP 36.7; O2SAT 99
[2024-05-06] MEDS: PANTOPRAZOLE INJ 40 MG VIAL IV ×2 (10:19→20:19)
[2024-05-06] MEDS: THIAMINE INJ 100 MG/ML VIAL 2 ML IVP ×2 (10:19→20:19)
[2024-05-06] MEDS: FOLIC ACID INJ 1 MG/0.2 ML IVP (10:19)
[2024-05-06] MEDS: predniSONE 20 MG TABLET 40 MG PO (10:20)
[2024-05-06 12:00] VITALS: BP 146/79; PULSE 59; PULSE 63; RESP 16; TEMP 36.4; O2SAT 99
--- NOTE | 2024-05-06 14:38 | PC.SS ---
SS follow up note; Pending Hyda Scan.
[2024-05-06 16:00] VITALS: BP 117/61; PULSE 68; PULSE 78; RESP 15; TEMP 36.6; O2SAT 98
[2024-05-06] MEDS: INSULIN LISPRO (AdmeLOG) 1 UNIT/0.01 ML UNIT SC (17:11)
--- NOTE | 2024-05-06 18:32 | ESPR_ITS ---
<Statement entered by Shea Jaeger MD - 05/07/24 07:37> Patient was seen and examined by me personally. I agree with most of the assessment and plan as discussed with the mba intern physician, and my attending, Dr. Cowart. Shea Jaeger MD, PGY-3 <Statement entered by Amado Cooper MD - 05/06/24 19:33> Patient was seen and examined at the bedside. Patient was taken to HIDA scan and reported to had no abdominal discomfort. Total bilirubin was found elevated. K-Phos was repleted. Rest of the labs were unremarkable. Will follow-up with HIDA scan results and likely discharge tomorrow if results are negative. All labs and orders were reviewed. I saw and examined the patient, and I agree with current management stated by Dr Ronak MD,PGY1. Plan of care was discussed with the attending physician and resident physician. Disclaimer: Despite multiple revisions, due to the dictation software being used, the document bellow may not be free of grammatical errors including phonetic/typographic errors. However, this does not deter from our commitment to providing health care in the patient's best interest in mind. Dr. Kenneth MD, PGY 2 Documentation for date of: 05/06/24 Subjective Subjective Interval history: Benjamin Villarreal is a 57-y/o male with a PMHx of HTN, HLD, DM, alcohol use admitted on 04/27 for hematemesis and hematochezia. EGD on 04/28 showed grade 3 varices status post band ligation. GI recommended octreotide 50 mcg/h for 5 days and Protonix drip that have since finished. Throughout hospitalization, received 4 units PRBC, 1 unit FFP, 1 unit platelets. 05/01: Seen and examined at bedside in telemetry. No acute overnight events reported. Needs to be on octreotide drip and Protonix drip ended on 04/30 and thus started on IV pushes twice daily. Per GI, octreotide drip to be continued until tomorrow. Hemoglobin has remained stable and LFTs continue to improve daily. T bili uptrending, likely due to acute liver failure vs gallbladder pathology as ALP within normal limits. 05/02: Patient seen and examined at bedside this morning. Overnight code melgoza was called due to alcohol withdrawal and patient was transferred to telemetry. Patient CIWA score at bedside was 29, however he is responding appropriately to IV Ativan. Vitals stable, labs reviewed and significant for thrombocytopenia, hypokalemia (repleted), hyperbilirubinemia. LFTs are downtrending. Patient to complete octreotide drip today however will remain inpatient due to CIWA protocol. Will reevaluate Lille score to determine if steroids are beneficial and alcoholic hepatitis. 05/03: Seen and examined at bedside in telemetry. Ativan changed from every 4 hours to every 2 hours and CIWA trending downwards (13, 17, 27, 27). Otherwise, octreotide and Protonix drips have finished their course and will continue Protonix IV twice daily. Hemoglobin is remained stable at 9.3 and LFTs downtrending. However, T. bili continues to uptrend and will continue to monitor. Potassium 3.3 and repleted with K-Phos. Also started D5 given the patient was n.p.o. and for developing NAGMA. Given that withdrawal symptoms started 5 days at her admission, U tox obtained and negative. 05/04: Seen and examined at bedside in telemetry. No acute overnight events reported. Patient did not receive Ativan overnight and CIWA has remained at 3 since 10 AM on 05/03. Hemoglobin continues to remain stable and improving and LFTs continue to downtrend. However, T. bili again is uptrending and will continue to monitor. Consider HIDA scan but patient does not endorse abdominal pain and ALP WNL. At this time, will continue to monitor total bilirubin and plan for discharge upon improvement. 05/05: Seen and examined at bedside in telemetry. No acute overnight events reported. Continues to not receive any ativan and CIWA now 1. Hemoglobin stable, platelets improving, and LFTs downtrending. However, T bili continues to uptrend as well as ALP. Thus, decision made to obtain HIDA scan and follow- up on results. 05/06: Patient seen and examined at bedside this morning. No acute overnight events. Vitals stable, labs reviewed. Potassium mildly low, T. bili elevated. Will obtain HIDA scan to rule out cholecystitis, as mentioned on previous liver ultrasound. Patient is tolerating diet and will advance to carb consistent after HIDA. CIWA 0?1, no symptomatic trigger needed. Exam Vital Signs Temp Pulse Resp BP Pulse Ox O2 Del Method O2 Flow Rate 97.8 F 78 15 117/61 98 Room Air 3 05/06/24 16:00 05/06/24 16:00 05/06/24 16:00 05/06/24 16:00 05/06/24 16:00 05/06/24 16:00 05/03/24 08:00 Narrative Exam General: alert and orientated x3e, resting comfortably HEENT: scleral icterus, NC/AT, mucous membranes moist Cardiovascular: regular rate and rhythm, S1/S2 present, no murmurs appreciated Pulmonary: clear to auscultation bilaterally, no rales/rhonchi/wheezes Abdominal: soft, non-tender, non-distended, no rebound/guarding, normal bowel sounds present Musculoskeletal: normal ROM, no peripheral edema Skin: jaundice, warm and dry, intact, no rashes Neuro: no visual or auditory hallucinations Objective Labs 05/07/24 04:28 05/07/24 13:18 Labs: Laboratory Results - last 24 hr 05/06/24 04:43 WBC 8.9 RBC 3.46 L Hgb 9.3 L Hct 27.9 L MCV 81 MCH 26.9 MCHC 33.3 RDW Std Deviation 54.4 H Plt Count 76 L Neut % (Auto) 81 H Lymph % (Auto) 8 L [place] % (Auto) 9 Eos % (Auto) 1 Baso % (Auto) 0 Neut # (Auto) 7.2 Lymph # (Auto) 0.7 L [place] # (Auto) 0.8 Eos # (Auto) 0.1 Baso # (Auto) 0.0 Immature Gran # (Auto) 0.06 H Absolute Nucleated RBC 0.00 Immature Gran % 1 H Nucleated RBC % 0 Sodium 142 Potassium 3.2 L Chloride 112 H Carbon Dioxide 20.1 Anion Gap 10 BUN 11 Creatinine 0.8 Estim Creat Clear Calc 78.6 eGFR > 60 BUN/Creatinine Ratio 14 Glucose 124 H Calculated Osmolality 283 Calcium 8.4 Corrected Calcium 9.1 Phosphorus 2.5 Magnesium 1.9 Total Bilirubin 17.7 H D AST 59 H ALT 277 H Alkaline Phosphatase 115 Total Protein 5.6 L Albumin 3.1 L Globulin 2.5 Albumin/Globulin Ratio 1.2 Misc Test Result Platelets confirmed ABG Interpretation ABG results: 04/27/24 23:20 VBG pH 7.29 L VBG pCO2 27 L VBG pO2 35 VBG Base Excess -12 L Quality Measures Quality Measures VTE prophylaxis Assessment & Plan Assessment Current Active Medications: Generic Name Dose Route Start Last Admin Trade Name Freq PRN Reason Stop Dose Admin Acetaminophen 325 mg 04/27/24 22:48 Acetaminophen 325 Mg Tablet PO 05/27/24 22:47 Q6H PRN Pain (1-3) & Fever >101.5 Bisacodyl 10 mg 05/03/24 09:38 05/03/24 11:38 Bisacodyl 10 Mg Supp UT 06/02/24 09:37 10 mg QDAY PRN Administration Constipation Protocol Dextrose 25 ml 04/28/24 01:59 Dextrose 50%-Water Inj 50 Ml Syringe IV 05/28/24 01:58 Q15MIN PRN BG 50-70 responsive npo pt Dextrose 50 ml 04/28/24 01:59 Dextrose 50%-Water Inj 50 Ml Syringe IV 05/28/24 01:58 Q15MIN PRN BG <50 OR BG <70 & pt unresponsive Folic Acid 1 mg 05/02/24 17:00 05/06/24 10:19 Folic Acid Inj 1 Mg/0.2 Ml IVP 06/01/24 16:59 1 mg QDAY SREE Administration Glucagon 1 mg 04/28/24 01:59 Glucagon Inj 1 Mg Vial IM Q15MIN PRN BG <70, and no IV access Insulin Human Lispro 0 unit 04/29/24 11:45 05/06/24 17:11 Insulin Lispro (Admelog) 1 Unit/0.01 Ml Unit SC 05/29/24 11:44 2 unit AC SREE Administration Protocol Lorazepam 0.5 mg 05/03/24 01:09 Lorazepam 2 Mg/Ml Vial IV 05/08/24 01:08 Q2HR PRN CIWA SCORE 8-13 Lorazepam 1 mg 05/03/24 01:09 Lorazepam 2 Mg/Ml Vial IV 05/08/24 01:08 Q2HR PRN CIWA SCORE 14-19 Lorazepam 2 mg 05/03/24 01:09 Lorazepam 2 Mg/Ml Vial IV 05/08/24 01:08 Q2HR PRN CIWA SCORE 20-25 Metoclopramide HCl 5 mg 04/29/24 00:00 05/06/24 17:11 Metoclopramide Inj 5 Mg/Ml Vial 2 Ml IVP 05/29/24 00:00 5 mg Q6HR SREE Administration Protocol Pantoprazole Sodium 40 mg 05/01/24 09:00 05/06/24 10:19 Pantoprazole Inj 40 Mg Vial IV 05/31/24 08:59 40 mg BID SREE Administration Prednisone 40 mg 05/03/24 10:30 05/06/24 10:20 Prednisone 20 Mg Tablet PO 05/10/24 10:23 40 mg QAM SREE Administration Thiamine HCl 100 mg 05/03/24 09:00 05/06/24 10:19 Thiamine Inj 100 Mg/Ml Vial 2 Ml IVP 06/02/24 08:59 100 mg BID SREE Administration Plan Benjamin Villarreal is a 57-y/o male with a PMHx of HTN, HLD, DM, alcohol use admitted on 04/27 for hematemesis and hematochezia. EGD on 04/28 showed grade 3 varices status post band ligation. GI recommended octreotide 50 mcg/h for 5 days and Protonix drip that have since finished. Throughout hospitalization, received 4 units PRBC, 1 unit FFP, 1 unit platelets. #Grade 3 esophageal varices status post band ligation #Upper GI bleed, stable #Acute blood loss anemia, stable History of drinking alcohol since 12 years old and has been drinking 7-8 beers daily for the last few months. ? GI consulted, appreciate recommendations ? Octreotide drip (04/28-05/02) finished ? Protonix drip (04/27-04/30) -> IV BID ? Ceftriaxone 1 g daily (04/27-05/03) for SBP prophylaxis -> DC'd 05/04 after full course ? Monitor hemoglobin #Hyperbilirubinemia, uptrending Liver US: Gallbladder wall thickened 0.7 cm with probable edema, CBD 0.3 cm Likely secondary to acute liver failure and will continue to monitor for now. ? Continue to monitor; expect t bili to lag behind LFTs ? HIDA scan on 05/05 => pending read #Alcohol withdrawal, resolved #Alcohol use disorder Code melgoza overnight for withdrawal symptoms. ? CIWA peaked at 33 on 05/02 and has downtrended since. On 05/03, not having visual or auditory hallucinations and orientated x2. Withdrawal symptoms significantly worsened 6 days after admission, so repeat U- tox obtained. ? Continue CIWA protocol with Ativan IV (not tolerating p.o. at this time) -> q2hr PRN ? Thiamine, folic acid, multivitamin => will discharge for patient to complete a total of 2 weeks ? U-tox on 05/03 negative ? Counseled extensively against using alcohol #Non-anion gap metabolic acidosis, resolved No episodes of diarrhea while hospitalized for other GI losses. Thus, suspect renal etiology. #Alcoholic hepatitis #Acute liver failure #Coagulopathy #Thrombocytopenia MELD NA score of 21: 7 to 10% mortality Child-Garcia score of 10 Maddrey score of 35: Good prognosis with steroids ? Prednisone 40 mg daily ? Lille score: 0.774, poor prognosis and may be nonresponder to steroids ? Continue to monitor LFTs daily ? Abstinence from alcohol #Hyperkalemia, resolved #Hypokalemia, resolved #Anion gap metabolic acidosis, secondary to lactic acidosis, resolved Potassium 3.3, repleted with K-phos ? Monitor daily labs; replete electrolytes as needed #JEANIE, resolved ? Avoid nephrotoxic agents, renally dose medications #HFpEF (55 to 60%) Echo on 04/28: EF 55 to 60%, grade 1 diastolic dysfunction. Moderate and mild AI. ? Recommend GDMT outpatient #T2DM A1c 6.7% ? SSI Hospital management: Disposition: Pending HIDA read to rule out cholecystectomy; if negative anticipate discharge in 24 hours Fluids: none Diet: Carb consistent Lines: PIV DVT prophylaxis: SCDs given GI bleed GI prophylaxis: pantoprazole 40 mg IV BID CODE STATUS: full code ----- Plan discussed with attending physician Dr. Cowart and senior resident physician Dr. Kenneth Simons MD PGY-1 Internal Medicine Attending Provider Attestation/Addendum I have discussed and was present for the essential components of the history, physical examination, diagnosis, and treatment plan with the resident. I agree with the patient's care as documented by the resident and amended herein by me. Nick Cowart DO. Although this document has been carefully reviewed, there may still be some phonetic and other typographical errors. These errors are purely grammatical due to imperfections in the software program and should not be construed in any way to compromise the substance of the patient's medical care during this visit.
[2024-05-06 20:00] VITALS: BP 128/72; PULSE 72; PULSE 77; RESP 16; TEMP 36.8; O2SAT 97
--- NOTE | 2024-05-06 20:47 | PD.IMPROG ---
Documentation for date of: 05/06/24 Subjective Subjective Interval history: Patient evaluated hemoglobin hematocrit 9.3 and 27.9 Platelet count 76,000 Total bilirubin 17.7 AST ALT 59-77 alk phos of 115 Exam Vital Signs Temp Pulse Resp BP Pulse Ox O2 Del Method O2 Flow Rate 97.8 F 78 15 117/61 98 Room Air 3 05/06/24 16:00 05/06/24 16:00 05/06/24 16:00 05/06/24 16:00 05/06/24 16:00 05/06/24 16:00 05/03/24 08:00 Routine Respiratory Exam Comments: To auscultation Routine Abdominal Exam Comments: Positive bowel sounds Objective Labs 05/06/24 04:43 05/06/24 04:43 Labs: Laboratory Results - last 24 hr 05/06/24 04:43 WBC 8.9 RBC 3.46 L Hgb 9.3 L Hct 27.9 L MCV 81 MCH 26.9 MCHC 33.3 RDW Std Deviation 54.4 H Plt Count 76 L Neut % (Auto) 81 H Lymph % (Auto) 8 L [place] % (Auto) 9 Eos % (Auto) 1 Baso % (Auto) 0 Neut # (Auto) 7.2 Lymph # (Auto) 0.7 L [place] # (Auto) 0.8 Eos # (Auto) 0.1 Baso # (Auto) 0.0 Immature Gran # (Auto) 0.06 H Absolute Nucleated RBC 0.00 Immature Gran % 1 H Nucleated RBC % 0 Sodium 142 Potassium 3.2 L Chloride 112 H Carbon Dioxide 20.1 Anion Gap 10 BUN 11 Creatinine 0.8 Estim Creat Clear Calc 78.6 eGFR > 60 BUN/Creatinine Ratio 14 Glucose 124 H Calculated Osmolality 283 Calcium 8.4 Corrected Calcium 9.1 Phosphorus 2.5 Magnesium 1.9 Total Bilirubin 17.7 H D AST 59 H ALT 277 H Alkaline Phosphatase 115 Total Protein 5.6 L Albumin 3.1 L Globulin 2.5 Albumin/Globulin Ratio 1.2 Misc Test Result Platelets confirmed Impressions Impression: Upper GI bleed status post band ligation of esophageal varices Mucosal oozing of blood Chronic liver disease with improving AST ALT but somewhat rising total bilirubin which is not unusual continue current management ABG Interpretation ABG results: 04/27/24 23:20 VBG pH 7.29 L VBG pCO2 27 L VBG pO2 35 VBG Base Excess -12 L Assessment & Plan A&P Narrative # Hematemesis # Hematochezia in the setting of chronic liver disease secondary to alcohol Plan Case discussed with the emergency room physician administrative office assistant Serial CBC Octreotide 50 mcg IV push and 50 mcg/h continuous infusion Protonix drip at 8 mg/h N.p.o. Consent obtained for fiberoptic esophagogastroduodenoscopy with possible therapeutic intervention under intravenous moderate sedation and scheduled Prognosis is guarded Advised the patient to be completely abstinent from alcohol otherwise the prognosis is much worse Time Spent With Patient Time: Total time spent is greater than 50% in coordination of care (as documented) at patient's floor/unit and/or counseling patient:
[2024-05-07] VITALS: BP 136/72; PULSE 67; PULSE 71; RESP 13; TEMP 37.4; O2SAT 96
[2024-05-07 04:00] VITALS: BP 125/68; PULSE 64; PULSE 74; RESP 15; TEMP 36.9; O2SAT 97
[2024-05-07] MEDS: METOCLOPRAMIDE INJ 5 MG/ML VIAL 2 ML IVP ×4 (05:20→23:44)
[2024-05-07 05:22] LABS: Basophils % (Auto) 0 % (0-2.5); Eosinophils % (Auto) 0 % (0-10); Hematocrit 27.1 % (41.0-53.0); Hemoglobin 9.2 g/dL (13.5-16.0); Immature Granulocytes % (Auto) 1 % (0-0); Immature Granulocytes Auto 0.06 Thou/mm3 (0.00-0.00); Lymphocytes # (Auto) 0.6 Thou/mm3 (1.0-4.8); Lymphocytes % (Auto) 7 % (10-50); Mean Corpuscular HGB Conc 33.9 g/dl (31.0-37.0); Mean Corpuscular Volume 80 fL (80-100); Monocytes # (Auto) 0.9 Thou/mm3 (0.0-0.8); Monocytes % (Auto) 10 % (0-12); Neutrophils # (Auto) 7.4 Thou/mm3 (1.8-7.7); Neutrophils % (Auto) 82 % (37-80); Nucleated Red Blood Cell % 0 /100 WBC (0); RDW Standard Deviation 54.1 fL (35.1-43.9); Red Blood Count 3.41 Miln/mm3 (4.50-5.90)
[2024-05-07 05:33] LABS: Platelet Count 78 Thou/mm3 (140-440)
[2024-05-07 05:34] LABS: Slide Review Platelets confirmed
[2024-05-07 06:00] VITALS: BMI 31.0
[2024-05-07 06:03] LABS: Alanine Aminotransferase 200 U/L (10-49); Albumin, Serum 2.9 gm/dL (3.5-5.0); Albumin/Globulin Ratio 1.1 (1.2-2.2); Alkaline Phosphatase 129 U/L (46-116); Anion Gap 10 (7-16); Aspartate Amino Transferase 59 U/L (0-34); BUN/Creatinine Ratio 13 Ratio (12-20); Blood Urea Nitrogen 15 mg/dL (9-23); Calcium 8.3 mg/dL (8.3-10.6); Calcium (Corrected) 9.2 mg/dL (8.5-10.1); Carbon Dioxide 21.1 mMol/L (20.0-31.0); Chloride 110 mMol/L (98-107); Creatinine (Component) 1.2 mg/dL (0.6-1.3); Globulin 2.6 gm/dL (2.3-3.5); Glucose 144 mg/dL (74-106); Magnesium 1.9 mg/dL (1.6-2.6); Osmolality,Calculated 285 (275-295); Phosphorous 2.7 mg/dL (2.4-5.1); Potassium 3.4 mMol/L (3.4-5.1); Sodium 141 mMol/L (136-145); Total Protein 5.5 gm/dL (5.7-8.2); eGFR > 60 See Note
[2024-05-07 06:06] LABS: Bilirubin,Total 18.1 mg/dL (0.3-1.2)
[2024-05-07 08:00] VITALS: BP 133/71; PULSE 72; RESP 20; TEMP 36.8; O2SAT 98
[2024-05-07] MEDS: PANTOPRAZOLE INJ 40 MG VIAL IV ×2 (08:58→20:24)
[2024-05-07] MEDS: THIAMINE INJ 100 MG/ML VIAL 2 ML IVP ×2 (08:59→20:24)
[2024-05-07] MEDS: POTASSIUM CHLORIDE 20 mEq TABCR PO (08:59)
[2024-05-07] MEDS: FOLIC ACID INJ 1 MG/0.2 ML IVP (08:59)
[2024-05-07] MEDS: Magnesium Sulfate 1 gm Ivpb 1 GM/100 ML BAG IV (09:00)
[2024-05-07] MEDS: predniSONE 20 MG TABLET 40 MG PO (09:00)
[2024-05-07] MEDS: RINGERS LACTATED 1000 ML 1,000 ML 75 ML IV (09:02)
[2024-05-07] MEDS: INSULIN LISPRO (AdmeLOG) 1 UNIT/0.01 ML UNIT SC ×2 (11:41→17:26)
[2024-05-07 12:00] VITALS: BP 148/77; PULSE 75; RESP 20; TEMP 36.8; O2SAT 97
--- NOTE | 2024-05-07 12:42 | ESPR_ITS ---
Documentation for date of: 05/07/24 Subjective Subjective Interval history: Patient evaluated Total bilirubin 18.1 AST ALT 59 and 200 Hemoglobin hematocrit 9.2 and 27.1 Exam Vital Signs Temp Pulse Resp BP Pulse Ox O2 Del Method O2 Flow Rate 98.3 F 72 20 133/71 H 98 Room Air 3 05/07/24 08:00 05/07/24 08:00 05/07/24 08:00 05/07/24 08:00 05/07/24 08:00 05/07/24 08:00 05/03/24 08:00 Objective Labs 05/07/24 04:28 05/07/24 13:18 Labs: Laboratory Results - last 24 hr 05/07/24 04:28 WBC 9.0 RBC 3.41 L Hgb 9.2 L Hct 27.1 L MCV 80 MCH 27.0 MCHC 33.9 RDW Std Deviation 54.1 H Plt Count 78 L Neut % (Auto) 82 H Lymph % (Auto) 7 L [place] % (Auto) 10 Eos % (Auto) 0 Baso % (Auto) 0 Neut # (Auto) 7.4 Lymph # (Auto) 0.6 L [place] # (Auto) 0.9 H Eos # (Auto) 0.0 Baso # (Auto) 0.0 Immature Gran # (Auto) 0.06 H Absolute Nucleated RBC 0.00 Immature Gran % 1 H Nucleated RBC % 0 Sodium 141 Potassium 3.4 Chloride 110 H Carbon Dioxide 21.1 Anion Gap 10 BUN 15 Creatinine 1.2 Estim Creat Clear Calc 53.0 L eGFR > 60 BUN/Creatinine Ratio 13 Glucose 144 H Calculated Osmolality 285 Calcium 8.3 Corrected Calcium 9.2 Phosphorus 2.7 Magnesium 1.9 Total Bilirubin 18.1 H* AST 59 H ALT 200 H Alkaline Phosphatase 129 H Total Protein 5.5 L Albumin 2.9 L Globulin 2.6 Albumin/Globulin Ratio 1.1 L Misc Test Result Platelets confirmed Impressions Impression: Acute posthemorrhagic anemia esophageal varices requiring band ligation of the esophageal varices Chronic liver disease secondary to alcohol ABG Interpretation ABG results: 04/27/24 23:20 VBG pH 7.29 L VBG pCO2 27 L VBG pO2 35 VBG Base Excess -12 L Assessment & Plan A&P Narrative # Hematemesis # Hematochezia in the setting of chronic liver disease secondary to alcohol Plan Case discussed with the emergency room physician administrative assistant coordinator Serial CBC Octreotide 50 mcg IV push and 50 mcg/h continuous infusion Protonix drip at 8 mg/h N.p.o. Consent obtained for fiberoptic esophagogastroduodenoscopy with possible therapeutic intervention under intravenous moderate sedation and scheduled Prognosis is guarded Advised the patient to be completely abstinent from alcohol otherwise the prognosis is much worse Time Spent With Patient Time: Total time spent is greater than 50% in coordination of care (as documented) at patient's floor/unit and/or counseling patient:
[2024-05-07 14:15] LABS: Anion Gap 10 (7-16); BUN/Creatinine Ratio 15 Ratio (12-20); Blood Urea Nitrogen 15 mg/dL (9-23); Calcium 8.3 mg/dL (8.3-10.6); Carbon Dioxide 20.2 mMol/L (20.0-31.0); Chloride 108 mMol/L (98-107); Estimated Creatinine Clearance 63.6 mL/min (>60); Glucose 177 mg/dL (74-106); Osmolality,Calculated 280 (275-295); Potassium 3.4 mMol/L (3.4-5.1); Sodium 138 mMol/L (136-145); eGFR > 60 See Note
--- NOTE | 2024-05-07 14:37 | ESDS_ITS ---
<Statement entered by Amado Cooper MD - 05/07/24 14:44> I saw and examined the patient, and I agree with current management stated by Dr Ronak MD,PGY1. Plan of care was discussed with the attending physician and resident physician. Disclaimer: Despite multiple revisions, due to the dictation software being used, the document bellow may not be free of grammatical errors including phonetic/typographic errors. However, this does not deter from our commitment to providing health care in the patient's best interest in mind. Dr. Kenneth MD, PGY 2 Planned Discharge Date 05/07/24 DS: Providers Provider Date of admission: 04/27/24 22:42 Primary care physician: Physician No Primary/Family Admitting Provider: David Miller MD Attending Provider on Admission: Demetri Cowart DO Consults: 04/27/24 21:12 Consult to Gastroenterology Stat Comment: Consulting Provider: Bolivar Liu 05/04/24 10:36 Referral Physical Therapy Routine Comment: Physician Instructions: Attending Provider on DC: Feng Simons MD Discharging Provider: Feng Simons MD DS: Diagnosis Problem List Completed Was Problem List Reviewed/Reconciled?: Yes Hospital Course Hospital Course Hospital course: Benjamin Villarreal is a 57-y/o male with a PMHx of HTN, HLD, DM, alcohol use admitted on 04/27 for hematemesis and hematochezia. Initial hemoglobin of 5.6 and transfused total of 4 units PRBC, 1 unit FFP, and 1 unit platelets per the hospital course. EGD on 04/28 showed grade 3 varices status post band ligation. Finished 5-day course of octreotide and Protonix drip as well as 7-day course of ceftriaxone for SBP prophylaxis. After EGD, hemoglobin had remained stable, LFTs initially in thousands that downtrended. However, on 05/02, valencia melgoza called overnight due to significant alcohol withdrawal symptoms with CIWA peaking at 33. Started IV Ativan given altered mentation and CIWA continuing to improve on subsequent days. During last few days of hospital course, CIWA 0-1. Although LFTs continue to improve, T. bili up was continued to uptrend. On admission T. bili of 2.9 and on day of admission 18.1. Obtained HIDA scan that showed EF of 5%, suggesting cholestasis. However, WBC remained normal, no fevers, and no abdominal pain on exam. Contributing elevated T. bili to acute liver failure secondary to alcoholic hepatitis. Counseled patient on importance of cessation of alcohol and that if he continued it would lead to serious consequences to health. Will be discharged with multivitamins and pantoprazole. Patient has to follow-up with Dr. Liu outpatient within 2 weeks of discharge and recommended to follow-up with PCP within 1 week of discharge. If he is not able to follow-up, option given to go to [facility] and given information to make an appointment. Diagnoses during admission: #Grade 3 esophageal varices status post band ligation #Upper GI bleed, stable #Acute blood loss anemia, stable #Hyperbilirubinemia, uptrending #Alcohol withdrawal, resolved #Alcohol use disorder #Non-anion gap metabolic acidosis, resolved #Alcoholic hepatitis #Acute liver failure #Coagulopathy #Thrombocytopenia #Hyperkalemia, resolved #Hypokalemia, resolved #Anion gap metabolic acidosis, secondary to lactic acidosis, resolved #JEANIE, resolved #HFpEF (55 to 60%) #T2DM Discharge instructions: - Recommend cessation of alcohol consumption - Take folic acid, thiamine/vitamin B1, and multivitamins for 2 more weeks after discharge - Start taking pantoprazole 40 mg once daily - Continue taking nadolol 20 mg once daily for high blood pressure - Follow-up with concrete boom operator, Dr. Liu, within two weeks of discharge - Follow-up with PCP within 1 week of discharge, if no PCP can follow-up at [facility] - Call [phone] to make an appointment - Return to ED if symptoms worsen or recur Time Spent with Patient Time attestation: Total time spent providing and/or coordinating discharge services: Exam Vital Signs Temp Pulse Resp BP Pulse Ox O2 Del Method O2 Flow Rate 98.3 F 75 20 148/77 H 97 Room Air 3 05/07/24 12:05/07/24 12:05/07/24 12:05/07/24 12:05/07/24 12:05/07/24 12:05/03/24 08:00 Narrative Exam General: alert and orientated x3e, resting comfortably HEENT: scleral icterus, NC/AT, mucous membranes moist Cardiovascular: regular rate and rhythm, S1/S2 present, no murmurs appreciated Pulmonary: clear to auscultation bilaterally, no rales/rhonchi/wheezes Abdominal: soft, non-tender, non-distended, no rebound/guarding, normal bowel sounds present Musculoskeletal: normal ROM, no peripheral edema Skin: jaundice, warm and dry, intact, no rashes Neuro: no visual or auditory hallucinations Discharge Plan Plan Patient Disposition: HOME (Self Care) Patient condition on transfer: Stable Care Plan Goals: - Recommend cessation of alcohol consumption - Take folic acid, thiamine/vitamin B1, and multivitamins for 2 more weeks after discharge - Start taking pantoprazole 40 mg once daily - Continue taking nadolol 20 mg once daily for high blood pressure - Follow-up with concrete boom operator, Dr. Liu, within two weeks of discharge - Follow-up with PCP within 1 week of discharge, if no PCP can follow-up at [facility] - Call [phone] to make an appointment - Return to ED if symptoms worsen or recur Prescriptions/Referrals Prescriptions/Med Rec: New thiamine HCl (vitamin B1) 100 mg tablet 100 mg PO QDAY Qty: 30 0RF folic acid 1 mg tablet 1 mg PO QDAY Qty: 30 0RF pantoprazole 40 mg tablet,delayed release (DR/EC) 40 mg PO QDAY Qty: 30 0RF multivitamin [Daily Multi-Vitamin] Tablet 1 tab PO QDAY Qty: 30 0RF Continued nadolol 20 mg tablet 20 mg PO QDAY Qty: 30 0RF Rx Instructions: take one tablet once daily Referrals: Bolivar Liu MD [Physician] - No Primary/Family,Physician [Primary Care Provider] - Patient/Caregiver Discharge Instructions Education Materials: Esophageal Varices, Understanding Cirrhosis, Alcoholism Resources Print Language: Upper Sorbian Stand Alone Forms: Tess Award Info., Patient Portal Info Letter Discharge Order Discharge Orders: Discharge (Routine); Ordered 05/07/24 Ordered By: Feng Simons Quality Discharge Quality Measures VTE prophylaxis Attestestation Attestation I have discussed and was present for the essential components of the discharge history, physical examination, diagnosis, and discharge treatment plan with the resident. I agree with the patient's discharge care as documented by the resident and amended herein by me. Nick Cowart DO. The patient understood all discharge instructions, all questions were answered satisfactorily. The patient was instructed to return to the Emergency Department is symptoms worsened or persisted. Patient was stable, afebrile, tolerating p.o. intake and ambulatory at time of discharge. Discharge cleared with gastroenterology. Although this document has been carefully reviewed, there may still be some phonetic and other typographical errors. These errors are purely grammatical due to imperfections in the software program and should not be construed in any way to compromise the substance of the patient's medical care during this visit.
[2024-05-07 16:00] VITALS: BP 148/75; PULSE 77; PULSE 90; RESP 15; TEMP 36.8; O2SAT 97
[2024-05-07 20:00] VITALS: BP 136/69; PULSE 68; RESP 21; TEMP 36.9; O2SAT 98
[2024-05-08] VITALS: BP 150/76; PULSE 70; RESP 19; TEMP 37.1; O2SAT 96
[2024-05-08 04:00] VITALS: BP 157/76; PULSE 70; RESP 18; TEMP 37.2; O2SAT 98
[2024-05-08] MEDS: METOCLOPRAMIDE INJ 5 MG/ML VIAL 2 ML IVP ×2 (05:08→11:41)
[2024-05-08 06:00] VITALS: BMI 31.0
[2024-05-08 06:27] LABS: Phosphorous 2.5 mg/dL (2.4-5.1)
[2024-05-08 08:00] VITALS: BP 163/72; PULSE 72; PULSE 73; RESP 18; TEMP 36.9; O2SAT 99
[2024-05-08] MEDS: PANTOPRAZOLE INJ 40 MG VIAL IV (08:31)
[2024-05-08] MEDS: THIAMINE INJ 100 MG/ML VIAL 2 ML IVP (08:34)
[2024-05-08] MEDS: predniSONE 20 MG TABLET 40 MG PO (08:34)
[2024-05-08 09:05] VITALS: BMI 31.0
--- NOTE | 2024-05-08 09:37 | PC.SS ---
PHOTOGRAPHER ASSISTANT called Ignacio [phone] to follow up on pt being ready for discharge but pt did not know address to be discharged to, Ignacio stated that sister would be taking pt home once he is ready for discharge. PHOTOGRAPHER ASSISTANT to follow up to confirm.
[2024-05-08] MEDS: FOLIC ACID 1 MG TABLET PO (09:41)
--- NOTE | 2024-05-08 10:25 | PC.SS ---
ACID TREATER called pt's roomate Burke [phone] to get pt's address to set up taxi for transportation, but roommate did not answer. ACID TREATER to attempt again.
[2024-05-08] MEDS: INSULIN LISPRO (AdmeLOG) 1 UNIT/0.01 ML UNIT SC (11:40)
--- NOTE | 2024-05-08 11:54 | PC.SS ---
ARCHAEOLOGIST set up transportation for pt via [facility] at 14:30, ARCHAEOLOGIST updated nurse on ETA
[2024-05-08 12:00] VITALS: BP 173/72; PULSE 72; PULSE 86; RESP 17; TEMP 37; O2SAT 98
--- NOTE | 2024-05-08 13:09 | PC.NURSE ---
PATIENT AMBULATED DOWN THE [facility] WITH ICU CHARGE NURSE SAMEER FOWLER, PATIENT HAS STEADY GAIT AND STATES HE IS COMFORTABLE WITH HIS AMBULATION AND DISCHARGE, NOTIFIED AND STATES HE IS OK TO DISCHARGE AT THIS TIME.
--- NOTE | 2024-05-08 13:09 | PC.NURSE ---
patient able to walk down the hallway without any difficulty with steady gait, is aware. order to stop physical therapy .will discharge patient home with taxi cab.
--- NOTE | 2024-05-08 14:19 | ESPR_ITS ---
Documentation for date of: 05/08/24 Subjective Subjective Interval history: Hemoglobin hematocrit 9.2 and 27.1 Exam Vital Signs Temp Pulse Resp BP Pulse Ox O2 Del Method O2 Flow Rate 98.4 F 86 18 163/72 H 99 Room Air 3 05/08/24 08:00 05/08/24 12:00 05/08/24 08:00 05/08/24 08:00 05/08/24 08:00 05/08/24 08:00 05/03/24 08:00 Objective Labs 05/07/24 04:28 05/07/24 13:18 Labs: Laboratory Results - last 24 hr 05/08/24 05:26 Phosphorus 2.5 Magnesium 2.0 Impressions Impression: # Esophageal variceal bleeding requiring band ligation of the varices Continue current management From a GI viewpoint patient can be discharged ABG Interpretation ABG results: 04/27/24 23:20 VBG pH 7.29 L VBG pCO2 27 L VBG pO2 35 VBG Base Excess -12 L Assessment & Plan A&P Narrative # Hematemesis # Hematochezia in the setting of chronic liver disease secondary to alcohol Plan Case discussed with the emergency room physician engineer assistant Serial CBC Octreotide 50 mcg IV push and 50 mcg/h continuous infusion Protonix drip at 8 mg/h N.p.o. Consent obtained for fiberoptic esophagogastroduodenoscopy with possible therapeutic intervention under intravenous moderate sedation and scheduled Prognosis is guarded Advised the patient to be completely abstinent from alcohol otherwise the prognosis is much worse Time Spent With Patient Time: Total time spent is greater than 50% in coordination of care (as documented) at patient's floor/unit and/or counseling patient:
[2024-05-08 14:57] VITALS: BP 169/80; PULSE 74
[2024-05-08] MEDS: hydrALAZINE HCL 25 MG TABLET PO (14:57)
--- NOTE | 2024-05-08 15:31 | PD.ADDDSCHGE ---
Addendum Discharge Addendum Date of report being addended: 05/08/24 Narrative: This patient 59-year-old male who was admitted for GI bleed workup was a failed discharge yesterday as patient did not remember/recall the place where he lives. Social workers worked up with the patient. Patient was seen and examined at the bedside and he was medically stable to be discharged. He was given hydralazine 25 mg p.o. x 1 for blood pressure management and was walked by the nurse for evaluation of any dizziness. Social workers were informed and they set up transferred for the patient. He did not had any dizziness and was able to go home safely. Patient was seen and discussed with Dr. Supa Cooper MD, PGY 2
[2024-05-08 16:00] VITALS: BP 152/84; PULSE 70; PULSE 76; RESP 18; TEMP 36.9; O2SAT 98
== END 2024-05-08 16:35 | disposition home or self-care (01) | DRG 280 ==
LOC: SERX 23:34 → SERHOLD 23:35 → S2NX 23:59 → S3SX 05-02 05:02 → S2NX 05-03 21:03 → S3SX 05-04 07:49
PROVIDERS: Registered Nurse General Practice; Specialist; Student in an Organized Health Care Education/Training Program; Admitting Provider Student in an Organized Health Care Education/Training Program; Emergency Provider Emergency Medicine; Visit Provider Student in an Organized Health Care Education/Training Program
PROC: 06L38CZ Occlusion of Esophageal Vein with Extraluminal Device, Via Natural or Artificial Opening Endoscopic (ICD-10-PCS; CPT 43239; principal; 2024-04-28 19:00)
DX: K70.30 Alcoholic cirrhosis of liver without ascites (principal); K70.10 Alcoholic hepatitis without ascites; K29.71 Gastritis, unspecified, with bleeding; I85.11 Secondary esophageal varices with bleeding; K92.0 Hematemesis; F10.239 Alcohol dependence with withdrawal, unspecified; F10.229 Alcohol dependence with intoxication, unspecified; E78.5 Hyperlipidemia, unspecified; N17.9 Acute kidney failure, unspecified; E87.5 Hyperkalemia; E87.4 Mixed disorder of acid-base balance; K70.40 Alcoholic hepatic failure without coma; E11.9 Type 2 diabetes mellitus without complications; I50.30 Unspecified diastolic (congestive) heart failure; K76.6 Portal hypertension; E88.09 Other disorders of plasma-protein metabolism, not elsewhere classified; K31.89 Other diseases of stomach and duodenum; D62 Acute posthemorrhagic anemia; Y90.8 Blood alcohol level of 240 mg/100 ml or more; I11.0 Hypertensive heart disease with heart failure; E87.6 Hypokalemia; D72.829 Elevated white blood cell count, unspecified; D68.9 Coagulation defect, unspecified; D69.6 Thrombocytopenia, unspecified; Z87.891 Personal history of nicotine dependence; Z79.4 Long term (current) use of insulin
CPT/HCPCS: 36415; 36430; 71045; 74176; 76705; 78227; 80048; 80053; 80061; 80069; 80074; 80307; 80320; 81001; 82803; 83036; 83605; 83615; 83735; 83880; 84100; 84484; 85014; 85018; 85025; 85610; 85730; 86850; 86900; 86901; 86923; 86927; 86965; 87811; 93005; 93306; 94762; 96374; 97162; 99285; A4649; A9537; J0360; J0613; J0696; J1200; J1815; J2060; J2250; J2354; J2405; J2470; J2765; J2805; J3010; J3411; J3430; J3475; J3480; J3490; J7030; J7040; J7042; J7050; J7120; J7510; J7512; J7999; P9016; P9035; P9047; P9060; A9270; G0480

== ENCOUNTER 2024-05-14 21:20 | Inpatient (IN) | payer MEDICAID, SELFPAY ==
[2024-05-14 21:24] VITALS: BP 131/71; PULSE 72; RESP 18; TEMP 36.6; O2SAT 93; O2SAT 97
--- NOTE | 2024-05-14 21:30 | XR_ITS ---
Examination: AP chest single view Technique one AP portable upright chest single view Exam date and time: May 08, 2024, 2038 hrs. Indications: Shortness of breath today. Findings: Mild prominence left ventricle. Mild ectasia thoracic aorta. No pulmonary edema. Mild osteopenia. Impression: No pneumonia or pulmonary edema
--- NOTE | 2024-05-14 21:32 | PD.EDGIBLD ---
ED GI Bleed RME/HPI General Chief complaint: GI Bleed Stated complaint: RECTAL BLEED Time Seen by Provider: 05/14/24 21:23 Arrival date/time: 05/14/24 21:20 RME / HPI RME / HPI Narrative: 59-year-old male patient with significant history of HTN, HLD, DM, alcohol use, recent hospital admission secondary to upper GI bleed, was discharged 6 days ago, came in for evaluation regarding worsening black tarry stool for the last 4 days. Patient was noted to have worsening black tarry stool for the last 4 days, according to the EMS and family, and was also noted to be hypoxic. When the EMS arrived patient was satting 85% on room air. Patient verbalized stop drinking alcohol 15 days ago. Denies any abdominal pain. Denies any confusion denies any other complaints. On my initial evaluation patient is alert and oriented x 3, blood pressure 131/71 heart rate of 72. Patient denies any vomiting blood. Related Data Home Medications ?Medication ?Instructions ?Recorded ?Confirmed No Known Home Medications 12/31/17 12/31/17 Previous Rx's ?Medication ?Instructions ?Recorded folic acid 1 mg tablet 1 mg PO QDAY #30 tabs 05/05/24 multivitamin (Daily Multi-Vitamin 1 tab PO QDAY #30 tabs 05/05/24 tablet) pantoprazole 40 mg tablet,delayed 40 mg PO QDAY #30 tabs 05/05/24 release thiamine HCl (vitamin B1) 100 mg 100 mg PO QDAY #30 tabs 05/05/24 tablet Allergies Allergy/AdvReac Type Severity Reaction Status Date / Time No Known Allergies Allergy Verified 05/15/24 06:35 Review of Systems Review of Systems Narrative Review of Systems: Review of system reviewed and within normal limits except mentioned in HPI ED Exam Narrative Physical exam: VITAL SIGNS: Reviewed. GENERAL APPEARANCE: Alert and interactive, follows commands, no acute distress, HEAD AND FACE: Non-traumatic. ENT: PERRL, icteric sclera, eyelid no trauma, Mucous membrane moist. NECK: Supple, nontender, no nuchal rigidity. CHEST: No tenderness, no crepitus, no paradoxical movement, no retractions. LUNGS: Clear, well ventilated, symmetric, no rales, no wheezing, no ronchi, no stridor, good breath sounds bilaterally. HEART: Regular rate, regular rhythm, no murmur, no gallops. ABDOMEN: Soft, positive bowel sounds, nondistended, no guarding, nontender, no rebound, no masses, RECTAL: Deferred. GENITAL: Deferred. NEUROLOGICAL: Gross motor function intact sensory function intact, Appropriate for age. MUSCULOSKELETAL: low back nontender, full range of motion. EXTREMITIES: Nontender, full range of motion. SKIN: Color jaundice, dry, no rash, no lacerations, no abrasions, no contusions. LYMPHATICS: Deferred. Course Course Course Narrative: Patient transfused and no further bleeding in the emergency department. Blood pressure is stabilized after 1 unit with a MAP greater than 70. Repeat hemoglobin is stable at 7.1. The patient's altered mental status remains improved and he is awake and can answer questions. At this time I do not feel the patient needs intubation. Quality Measures none Orders Category Date Time Status COVID-19 Screening Questionnaire NOW Care 05/14/24 23:08 Active Decision to Admit X1 Care 05/14/24 23:08 Completed EKG (ED ONLY) *Do not use* NOW Care 05/14/24 21:29 Completed IV [Insert IV] NOW Care 05/14/24 21:59 Active Occult Blood,Stool (Nursing) NOW Care 05/14/24 21:29 Completed Transfuse,blood/blood products ONCE Care 05/14/24 22:23 Active Consult to Gastroenterology Stat Cons 05/14/24 23:01 Ordered EKG (ED Only) Stat Exams 05/14/24 21:29 Ordered XR chest 1V Stat Exams 05/14/24 21:30 Completed Ammonia Stat Lab 05/14/24 21:46 Completed Blood Culture (Lab) Stat Lab 05/14/24 21:45 Received CBC Stat Lab 05/14/24 21:45 Completed Comprehensive Metabolic Panel Stat Lab 05/14/24 21:46 Completed FFP [Fresh Frozen Plasma] Stat Lab 05/14/24 21:46 Results Lactate (Lactic Acid) Stat Lab 05/14/24 21:46 Completed Lactic Acid, 3 HR Stat Lab 05/15/24 02:23 Completed Occult Blood, Stool (LAB) Stat Lab 05/14/24 21:38 Completed PLATELETS [Pheresis Platelets] Stat Lab 05/14/24 21:46 Results Partial Thromboplastin Time Stat Lab 05/14/24 21:46 Completed Procalcitonin Stat Lab 05/14/24 21:46 Completed Prothrombin Time with INR Stat Lab 05/14/24 21:46 Completed Type and Screen Stat Lab 05/14/24 21:46 Results Urinalysis Stat Lab 05/15/24 04:45 Completed prbc [Red Blood Cells] Stat Lab 05/14/24 21:46 Results Metoclopramide Inj [Reglan Inj] Med 05/14/24 22:22 Discontinued 10 mg IVP X1 ONE Octreotide Acet Inj [SandoSTATIN Inj] Med 05/14/24 21:31 Discontinued 50 mcg IV X1 ONE Pantoprazole Inj [Protonix Inj] Med 05/14/24 21:31 Discontinued 80 mg IV X1 ONE Sodium Chloride 0.9% [Ns] 100 ml Med 05/14/24 22:30 Active Octreotide Acet Inj [SandoSTATIN Inj] 1,000 mcg IV 50 mcg/hr Sodium Chloride 0.9% [Ns] 100 ml Med 05/15/24 18:30 Active Octreotide Acet Inj [SandoSTATIN Inj] 1,000 mcg IV 50 mcg/hr cefTRIAXone [Rocephin] 1,000 mg Med 05/14/24 22:21 Discontinued SODIUM CHLORIDE 0.9% (Popper) [Ns 0.9% (P)] 50 ml IV X1 O2 [Oxygen Delivery] NOW RT 05/14/24 21:31 Active Reevaluation(s) Reevaluation #1: See the ED course Vital Signs Vital signs: Vital Signs Temperature 97.9 F 05/14/24 21:24 Pulse Rate 72 05/14/24 21:24 Respiratory Rate 18 05/14/24 21:24 Blood Pressure 131/71 H 05/14/24 21:24 Pulse Oximetry (%) 97 05/14/24 21:24 Oxygen Delivery Method Oxy Mask 05/14/24 21:24 Oxygen Flow Rate 15 05/14/24 21:24 GI Bleed MDM Narrative MDM Narrative:: 59-year-old male patient with significant history of HTN, HLD, DM, alcohol use, recent hospital admission secondary to upper GI bleed, was discharged 6 days ago, came in for evaluation regarding worsening black tarry stool for the last 4 days. Patient was noted to have worsening black tarry stool for the last 4 days, according to the EMS and family, and was also noted to be hypoxic. When the EMS arrived patient was satting 85% on room air. Patient verbalized stop drinking alcohol 15 days ago. Denies any abdominal pain. Denies any confusion denies any other complaints. 1015, patient was witnessed vomiting fresh blood. Was also noted to be having a blood pressure of 84/51 While in the emerged part the patient had anemia with a hemoglobin of 5.8, elevated white count at 26,000, abnormal INR at 1.8. Metabolic disorder and acute renal failure with a creatinine of 2.6. Initially came in hypertensive and afebrile. Initial labs were relevant for anemia (hemoglobin 5.8), leukocytosis (26.7), coagulopathy (INR 1.8), high anion gap metabolic acidosis, lactic acidosis, JEANIE (creatinine 2.6), hyperbilirubinemia (23), hyperammonemia (142), hypoalbuminemia (2), and positive occult blood. Initial imaging included chest x-ray which was unremarkable. Imaging ordered includes CXR, interpreted by me. No CHF, pulm edema, or pneumonia. Patient received emergency blood transfusion at slow rate x 2 bags Patient data External records reviewed:: [facility] previous records (Admitted for GI bleed and banding for grade 3 esophageal varices by GI.) Clinical information provided by:: patient and EMS Social determinants that could affect healthcare access:: none Patient has the following chronic illnesses:: Grade 3 esophageal varices status post band ligation #Upper GI bleed, stable #Acute blood loss anemia, stable #Hyperbilirubinemia, uptrending #Alcohol withdrawal, resolved #Alcohol use disorder #Non-anion gap metabolic acidosis, resolved #Alcoholic hepatitis #Acute liver failure #Coagulopathy #Thrombocytopenia #Hyperkalemia, resolved #Hypokalemia, resolved #Anion gap metabolic acidosis, secondary to lactic acidosis, resolved #JEANIE, resolved #HFpEF (55 to 60%) #T2DM How is presenting disease/condition affected by chronic disease/condition?: caused by Evaluation data The following diagnostics were reviewed and interpreted by me:: lab results and EKG tracing(s) Lab and/or radiology exams considered but not ordered:: nOne Interpretation Summary: CBC is 26b,000 and abnormal H&H is 5.8 and abnormal INR is 1.8 and abnormal Elevated ammonia of 142. Bilirubin of 23. CXR: Findings: Mild prominence left ventricle. Mild ectasia thoracic aorta. No pulmonary edema. Mild osteopenia. Impression: No pneumonia or pulmonary edema Dictated By: Maclennan,Fer W MD Signed By: <Electronically signed by Fer Ochoa MD in [place]> 05/14/24 1104 Medications / Prescriptions Medications or Prescriptions considered but not ordered:: None Medication administrations:: Medication Administration History Acetaminophen (Acetaminophen Supp 650 Mg Supp) 650 mg [place] Q6HR PRN PRN Reason: pain and Fever > 100.4 Stop: 06/14/24 01:16 Dextrose (Dextrose 50%-Water Inj 50 Ml Syringe) 25 ml IV Q15MIN PRN PRN Reason: BG 50-70 responsive npo pt Stop: 06/14/24 01:21 Dextrose (Dextrose 50%-Water Inj 50 Ml Syringe) 50 ml IV Q15MIN PRN PRN Reason: BG <50 OR BG <70 & pt unresponsive Stop: 06/14/24 01:21 Glucagon (Glucagon Inj 1 Mg Vial) 1 mg IM Q15MIN PRN PRN Reason: BG <70, and no IV access Octreotide Acetate 1,000 mcg/ (Sodium Chloride) 102 mls @ 5.1 mls/hr IV .Q20H SREE; Protocol Stop: 05/19/24 22:22 Octreotide Acetate 1,000 mcg/ (Sodium Chloride) 102 mls @ 5.1 mls/hr IV .Q20H SREE; Protocol Stop: 05/15/24 18:29 Last Admin: 05/14/24 22:31 Dose: 50 mcg/hr, 5.1 mls/hr Documented By: KG Albumin Human (Albuminar-25 Ivpb) 25 gm in 100 mls @ 100 mls/hr IV QDAY SREE Stop: 05/18/24 07:48 Last Admin: 05/15/24 08:42 Dose: 100 mls/hr Documented By: EDWARD Piperacillin/Tazobactam/Dextrose (Zosyn) 3.375 gm in 50 mls @ 12.5 mls/hr IV Q8HR SREE; Protocol Stop: 05/22/24 13:59 Last Admin: 05/15/24 15:09 Dose: Not Given Documented By: EDWARD Non-Admin Reason: first dose late Dexmedetomidine/Sodium Chloride (Precedex Ivpb) 200 mcg in 50 mls @ 3.763 mls/hr IV .[id number] PRN; Protocol PRN Reason: Per PROTOCOL Stop: 06/14/24 12:25 Last Admin: 05/15/24 12:36 Dose: 0.2 mcg/kg/hr, 3.763 mls/hr Documented By: EDWARD Co-signed By: MATTY Insulin Human Lispro (Insulin Lispro (Admelog) 1 Unit/0.01 Ml Unit) 0 unit SC Q6HR SREE; Protocol Stop: 06/14/24 05:59 Last Admin: 05/15/24 15:01 Dose: Not Given Documented By: EDWARD Non-Admin Reason: Per Protocol Admin: 05/15/24 05:58 Dose: Not Given Documented By: MAGEN Non-Admin Reason: Per Protocol Lactulose (Lactulose Syrup 20 Gm/30 Ml Udc) 20 gm [place] TID SREE; Protocol Stop: 06/14/24 07:59 Last Admin: 05/15/24 15:10 Dose: Not Given Documented By: EDWARD Non-Admin Reason: Cancelled by Provider Admin: 05/15/24 08:42 Dose: 20 gm Documented By: EDWARD Ondansetron HCl (Ondansetron Inj 2 Mg/Ml Inj 2 Ml) 4 mg IV Q6H PRN; Protocol PRN Reason: NAUSEA OR VOMITING Stop: 06/14/24 01:16 Last Admin: 05/15/24 05:46 Dose: 4 mg Documented By: MAGEN Pantoprazole Sodium (Pantoprazole Inj 40 Mg Vial) 80 mg IVP BID SREE Stop: 06/14/24 20:59 Discontinued Medications Diphenhydramine HCl (Diphenhydramine Inj 50 Mg/Ml Vial) Confirm Administered Dose 50 mg .ROUTE .STK-MED ONE Stop: 05/15/24 11:25 Epinephrine HCl (Epinephrine Inj 0.1 Mg/Ml Syringe 10ml) Confirm Administered Dose 1 mg .ROUTE .STK-MED ONE Stop: 05/15/24 11:26 Fentanyl Citrate (Fentanyl Cit Inj 50 Mcg/Ml Amp 2ml) Confirm Administered Dose 100 mcg .ROUTE .STK-MED ONE Stop: 05/15/24 11:24 Fentanyl Citrate (Fentanyl Cit Inj 50 Mcg/Ml Amp 2ml) 25 mcg IV Q2M PRN PRN Reason: MODERATE SEDATION Stop: 05/15/24 14:01 Fentanyl Citrate (Fentanyl Cit Inj 50 Mcg/Ml Amp 2ml) Confirm Administered Dose 100 mcg .ROUTE .STK-MED ONE Stop: 05/15/24 12:15 Last Admin: 05/15/24 13:13 Dose: Not Given Documented By: EDWARD Non-Admin Reason: Override Medication Fentanyl Citrate (Fentanyl Cit Inj 50 Mcg/Ml Amp 2ml) 50 mcg IV X1 ONE Stop: 05/15/24 12:26 Last Admin: 05/15/24 12:25 Dose: 50 mcg Documented By: EDWARD Flumazenil (Flumazenil Inj 0.1 Mg/Ml Vial 10 Ml) Confirm Administered Dose 1 mg .ROUTE .STK-MED ONE Stop: 05/15/24 11:26 Ceftriaxone Sodium 1,000 mg/ (Sodium Chloride) 50 mls @ 100 mls/hr IV X1 ONE Stop: 05/14/24 22:50 Last Infusion: 05/14/24 23:05 Dose: Infused Documented By: Admin: 05/14/24 22:35 Dose: 100 mls/hr Documented By: GRAYSON Ceftriaxone Sodium 1,000 mg/ (Sodium Chloride) 50 mls @ 100 mls/hr IV QDAY SREE Stop: 05/22/24 08:59 Albumin Human (Albuminar-25 Ivpb) 25 gm in 100 mls @ 100 mls/hr IV X1 ONE Stop: 05/15/24 02:25 Last Infusion: 05/15/24 02:54 Dose: Infused Documented By: Admin: 05/15/24 01:54 Dose: 100 mls/hr Documented By: KG Albumin Human (Albuminar-25 Ivpb) 25 gm in 100 mls @ 100 mls/hr IV X1 ONE Stop: 05/15/24 02:26 Last Infusion: 05/15/24 04:08 Dose: Infused Documented By: Admin: 05/15/24 03:08 Dose: 100 mls/hr Documented By: KG Albumin Human (Albuminar-25 Ivpb) 25 gm in 100 mls @ 100 mls/hr IV X1 ONE Stop: 05/15/24 02:26 Last Admin: 05/15/24 04:38 Dose: 100 mls/hr Documented By: GRAYSON Lactated Ringer's (Lactated Ringers) 1,000 mls @ 999 mls/hr IV .Q1H1M ONE Stop: 05/15/24 09:39 Last Admin: 05/15/24 09:30 Dose: 999 mls/hr Documented By: EDWARD Lactated Ringer's (Lactated Ringers) 1,000 mls @ 999 mls/hr IV .Q1H1M ONE Stop: 05/15/24 10:18 Last Admin: 05/15/24 09:51 Dose: Not Given Documented By: EDWARD Non-Admin Reason: Cancelled by Provider Lactated Ringer's (Lactated Ringers) 1,000 mls @ 999 mls/hr IV .Q1H1M ONE Stop: 05/15/24 10:19 Last Admin: 05/15/24 09:51 Dose: Not Given Documented By: EDWARD Non-Admin Reason: Cancelled by Provider Piperacillin/Tazobactam/Dextrose (Zosyn) 3.375 gm in 50 mls @ 100 mls/hr IV X1 ONE Stop: 05/15/24 10:14 Last Admin: 05/15/24 15:09 Dose: 100 mls/hr Documented By: EDWARD Lactated Ringer's (Lactated Ringers) 1,000 mls @ 999 mls/hr IV .Q1H1M ONE Stop: 05/15/24 11:30 Last Admin: 05/15/24 11:01 Dose: 999 mls/hr Documented By: EDWARD Calcium Gluconate/Sodium Chloride (Calcium Gluc/Ns 1000mg Ivpb) 1,000 mg in 50 mls @ 50 mls/hr IV X1 ONE Stop: 05/15/24 12:27 Last Admin: 05/15/24 11:40 Dose: 50 mls/hr Documented By: EDWARD Dexmedetomidine/Sodium Chloride (Precedex Ivpb) Confirm Administered Dose 200 mcg in 50 mls @ ud IV .STK-MED ONE Stop: 05/15/24 12:25 Last Admin: 05/15/24 13:13 Dose: Not Given Documented By: EDWARD Non-Admin Reason: Override Medication Lorazepam (Lorazepam 2 Mg/Ml Vial) Confirm Administered Dose 2 mg .ROUTE .STK-MED ONE Stop: 05/15/24 12:11 Last Admin: 05/15/24 13:13 Dose: Not Given Documented By: EDWARD Non-Admin Reason: Override Medication Lorazepam (Lorazepam 2 Mg/Ml Vial) 2 mg IVP X1 ONE Stop: 05/15/24 12:26 Last Admin: 05/15/24 12:25 Dose: 2 mg Documented By: EDWARD Meperidine HCl (Meperidine Inj 50 Mg/Ml Vial) Confirm Administered Dose 50 mg .ROUTE .STK-MED ONE Stop: 05/15/24 11:24 Metoclopramide HCl (Metoclopramide Inj 5 Mg/Ml Vial 2 Ml) 10 mg IVP X1 ONE; Protocol Stop: 05/14/24 22:23 Last Admin: 05/14/24 22:30 Dose: 10 mg Documented By: KG Midazolam HCl (Midazolam Inj 1 Mg/Ml Vial 2 Ml) Confirm Administered Dose 4 mg .ROUTE .STK-MED ONE Stop: 05/15/24 11:25 Midazolam HCl (Midazolam Inj 1 Mg/Ml Vial 2 Ml) 2 mg IV Q2M PRN PRN Reason: Moderate Sedation Stop: 05/15/24 14:01 Naloxone HCl (Naloxone Inj 1 Mg/Ml Syringe 2 Ml) Confirm Administered Dose 2 mg .ROUTE .STK-MED ONE Stop: 05/15/24 11:26 Octreotide Acetate (Octreotide Acet Inj 50 Mcg/Ml Vial) 50 mcg IV X1 ONE Stop: 05/14/24 21:32 Last Admin: 05/14/24 22:14 Dose: 50 mcg Documented By: AZRA Pantoprazole Sodium (Pantoprazole Inj 40 Mg Vial) 80 mg IV X1 ONE Stop: 05/14/24 21:32 Last Admin: 05/14/24 22:12 Dose: 80 mg Documented By: AZRA Pantoprazole Sodium (Pantoprazole Inj 40 Mg Vial) 40 mg IVP BID SREE Stop: 06/14/24 08:59 Pantoprazole Sodium (Pantoprazole Inj 40 Mg Vial) 40 mg IV X1 ONE Stop: 05/15/24 09:36 Last Admin: 05/15/24 09:53 Dose: 40 mg Documented By: EDWARD Phytonadione (Phytonadione Inj 10 Mg/Ml Amp) 10 mg IM X1 ONE Stop: 05/15/24 09:22 Last Admin: 05/15/24 13:03 Dose: Not Given Documented By: EDWARD Non-Admin Reason: Cancelled by Provider Rocuronium [place] (Rocuronium Inj 10 Mg/Ml Vial 10 Ml) 70 mg IV X1 ONE Stop: 05/15/24 12:26 Last Admin: 05/15/24 12:25 Dose: 70 mg Documented By: EDWARD Co-signed By: MATTY Sodium Bicarbonate (Sodium Bicarb Inj 8.4% 1 Meq/Ml 50 Ml Vial) 50 meq IV X1 ONE Stop: 05/15/24 07:41 Last Admin: 05/15/24 08:40 Dose: 50 meq Documented By: EDWARD Sodium Bicarbonate (Sodium Bicarb Inj 8.4% 1 Meq/Ml 50 Ml Vial) 50 meq IV X1 ONE Stop: 05/15/24 07:41 Last Admin: 05/15/24 08:42 Dose: 50 meq Documented By: EDWARD Sodium Bicarbonate (Sodium Bicarb Inj 8.4% 1 Meq/Ml 50 Ml Vial) 50 meq IV X1 ONE Stop: 05/15/24 09:26 Last Admin: 05/15/24 09:40 Dose: 50 meq Documented By: EDWARD Sodium Bicarbonate (Sodium Bicarb Inj 8.4% 1 Meq/Ml 50 Ml Vial) 50 meq IV X1 ONE Stop: 05/15/24 14:39 Blood transfusion, x 2 units, IV Sandostatin, Sandostatin drip, IV Protonix IV ceftriaxone Consultations Consultation(s) initiated? (list below): Yes Consultation #1 (Physician, Specialty, Details): Dr. Liu, all labs were discussed and request admission to the ICU and will consult on the patient. Time: 23:10 Consultation #2 (Physician, Specialty, Details): Internal medicine resident working with Dr. Collins, hospitalist on-call at the bedside who will admit the patient Time: 23:30 Diagnosis GI bleed differential diagnosis: hemorrhoids, infectious diarrhea, esophageal varices, Angela-Law syndrome, Upper gastrointestinal hemorrhage, Lower gastrointestinal hemorrhage, hematochezia and melena Most likely diagnosis given after review of the tests above:: Upper GI bleed secondary to varices. Admission Indicated Admission indicated?: indicated Explain why admission is indicated or not indicated:: Hypotensive, needing blood, Admission Request Was there a request for admission?: Yes Admission Attestation Admission request attestation: Discussed case with [Dr Cohn] from Hospitalist service regarding admission. Discussed patients ED course, exam findings, labs, and radiology results. The Hospitalist [agrees,] to accept the patient for admission. Disposition Plan Disposition Plan: Admit Critical Care Time Critical Care Time Critical Care Time: Yes Total Critical Care Time (min.): 90 Attestation: This patient required the highest level of my preparedness for sudden and emergent intervention. I provided critical care services, which included ordering, reviewing, and interpreting of laboratory studies in real time. Determining immediate treatments, planning for future treatments and observing response to therapy. Further diagnostic tests and treatments were made based on laboratory studies and response to therapy. I coordinated care with various consultants. This critical care time is separate from any other billable procedures or interventions Discharge Plan Plan Patient Disposition: Admit Acute Care w/in Hospital Patient condition on transfer: Stable Problem List Clinical Impression: Acute upper GI bleeding, Acute hypotension, Metabolic acidosis, History of esophageal varices MD Attestation Attestation I, Dr. Mayelin JOE, was present for the entire history and physical exam for this patient while the nurse practitioner took care of him. He was immediately moved to ED room 3, emergency blood release was given and all consultants made aware.. I was involved in the management, and agree with the plan. At approximately 0 100 patient's blood pressure is 105/56, heart rate of 75. And he is able to answer questions. He has had no additional episodes of vomiting.
[2024-05-14 22:09] LABS: OBS Performed By ABRCR; OBS QC OK? Yes; Occult Blood, Stool Positive (Negative)
[2024-05-14] MEDS: PANTOPRAZOLE INJ 40 MG VIAL 80 MG IV (22:12)
[2024-05-14] MEDS: OCTREOTIDE ACET INJ 50 mCg/ML VIAL IV (22:14)
[2024-05-14 22:16] LABS: Basophils % (Auto) 0 % (0-2.5); Eosinophils # (Auto) 0.1 Thou/mm3 (0.0-0.5); Eosinophils % (Auto) 0 % (0-10); Immature Granulocytes % (Auto) 9 % (0-0); Immature Granulocytes Auto 2.27 Thou/mm3 (0.00-0.00); Lymphocytes # (Auto) 1.3 Thou/mm3 (1.0-4.8); Lymphocytes % (Auto) 5 % (10-50); Mean Corpuscular HGB Conc 32.2 g/dl (31.0-37.0); Mean Corpuscular Hemoglobin 26.5 pg (25.0-35.0); Mean Corpuscular Volume 82 fL (80-100); Monocytes # (Auto) 2.9 Thou/mm3 (0.0-0.8); Monocytes % (Auto) 11 % (0-12); Neutrophils # (Auto) 20.1 Thou/mm3 (1.8-7.7); Neutrophils % (Auto) 76 % (37-80); Nucleated Red Blood Cell # 0.02 Thou/mm3 (0.00-0.00); Nucleated Red Blood Cell % 0 /100 WBC (0); Platelet Count 236 Thou/mm3 (140-440); RDW Standard Deviation 64.4 fL (35.1-43.9); Red Blood Count 2.19 Miln/mm3 (4.50-5.90); White Blood Count 26.7 Thou/mm3 (3.8-10.6)
[2024-05-14 22:22] VITALS: BMI 26.6
--- NOTE | 2024-05-14 22:22 | PC.NURSE ---
Pt moved to room 3 from room 17 at this time; assumed care of pt.
[2024-05-14] MEDS: METOCLOPRAMIDE INJ 5 MG/ML VIAL 2 ML 10 MG IVP (22:30)
[2024-05-14] MEDS: OCTREOTIDE ACET INJ 1,000 MCG in SODIUM CHLORIDE 0.9% 100 ML 5.1 MCG IV (22:31)
[2024-05-14] MEDS: cefTRIAXone 1,000 MG in SODIUM CHLORIDE 0.9% (Popper) 50 ML 100 MG IV (22:35)
[2024-05-14 22:37] LABS: Hemoglobin 5.8 g/dL (13.5-16.0)
[2024-05-14 22:39] LABS: Lactate (Lactic Acid) 10.3 mMol/L (0.4-2.0)
[2024-05-14 22:41] LABS: Ammonia 142 uMol/L (11-32); INR 1.8 (0.9-1.3); Partial Thromboplastin Time 44.4 Seconds (22.0-36.0); Prothrombin Time 19.3 Seconds (9.0-12.2)
[2024-05-14 22:43] VITALS: BP 85/50; PULSE 78; RESP 16; O2SAT 100
[2024-05-14 22:46] LABS: Alanine Aminotransferase 84 U/L (10-49); Albumin/Globulin Ratio 0.8 (1.2-2.2); Alkaline Phosphatase 152 U/L (46-116); Anion Gap 21 (7-16); Aspartate Amino Transferase 76 U/L (0-34); BUN/Creatinine Ratio 24 Ratio (12-20); Blood Urea Nitrogen 62 mg/dL (9-23); Calcium 8.7 mg/dL (8.3-10.6); Calcium (Corrected) 10.3 mg/dL (8.5-10.1); Chloride 109 mMol/L (98-107); Creatinine (Component) 2.6 mg/dL (0.6-1.3); Estimated Creatinine Clearance 26.6 mL/min (>60); Globulin 2.4 gm/dL (2.3-3.5); Glucose 155 mg/dL (74-106); Osmolality,Calculated 300 (275-295); Potassium 3.8 mMol/L (3.4-5.1); Procalcitonin 1.12 ng/ml (0.0-0.49); Sodium 140 mMol/L (136-145); Total Protein 4.4 gm/dL (5.7-8.2); eGFR 28 See Note
[2024-05-14 22:51] LABS: Carbon Dioxide 10.3 mMol/L (20.0-31.0)
[2024-05-14 22:59] VITALS: BP 88/59; PULSE 73; RESP 18; TEMP 33.9; O2SAT 100
--- NOTE | 2024-05-14 23:11 | PC.NURSE ---
informed PA Crisjun of hypothermia; hector ford applied.
[2024-05-14 23:14] VITALS: BP 106/54; PULSE 72; RESP 18; TEMP 33.9; O2SAT 100
[2024-05-15] VITALS (140 sets, daily range): BP systolic 69–212; BP diastolic 42–97; PULSE 72–132; RESP 11–100; TEMP 2.4–36.6; O2SAT 92–100; BMI 27.6
[2024-05-15 01:03] LABS: Reflex Lactate? Y
--- NOTE | 2024-05-15 01:08 | PC.NURSE ---
Dr. Olivas at the bedside, verbal order to wean pt off nitroglycerin drip at this time now that pt has voided a significant amount.
--- NOTE | 2024-05-15 01:30 | ESHP_ITS ---
Documentation for date of: 05/15/24 [facility] History of Present Illness Chief complaint: Black stools and AMS History of present illness: 59-year-old male with past medical history of alcohol use disorder, esophageal varices s/p banding, hypertension, hyperlipidemia, DM2, HFpEF (EF 55 to 60%) and biliary dyskinesia was admitted to the hospital on 05/15/2024 after coming to the ED with complaints of black starry stools and a witnessed bloody emesis. Upon my assessment patient was only able x 1 only to his name. He was unable to provide any history of what events led him to come to the hospital. He was only able to follow some simple commands, but cannot respond to complex questions about history. Most of the history was taken per chart review as patient unable to provide history and tried contacting family, but was unsuccessful. Per chart review patient had been having black starry stools for 4 days and was hypoxic when EMS evaluated the patient. Patient stated that he has not drink alcohol for the past 15 days, but most likely 1 time has passed as he was in the hospital recently for multiple days. At the time of assessment patient's blood pressure was on the lower end, but maintaining a MAP above 65. Patient noted to have an JEANIE likely in the setting of acute blood loss anemia. Patient also had some lactic acidosis along with hyperammonemia. Patient did not have any active bleeding during assessment and there was only some dried blood around patient's mouth and on his chest mostly from the bloody emesis episode he had in the ED. Patient was recently discharged from the hospital after coming with similar complaints where he had an endoscopy that revealed grade 3 esophageal varices which was banded and ligated. At this time patient was also having alcohol withdrawal along with acute liver failure likely secondary to alcohol hepatitis. ED course: Initially came in hypertensive and afebrile. Initial labs were relevant for anemia (hemoglobin 5.8), leukocytosis (26.7), coagulopathy (INR 1.8), high anion gap metabolic acidosis, lactic acidosis, JEANIE (creatinine 2.6), hyperbilirubinemia (23), hyperammonemia (142), hypoalbuminemia (2), and positive occult blood. Initial imaging included chest x-ray which was unremarkable. PMH: alcohol use disorder, esophageal varices s/p banding, hypertension, hyperlipidemia, DM2, HFpEF (EF 55 to 60%) and biliary dyskinesia Allergies: NKDA Social Hx: Per chart review does not smoke or use illicit drugs. Last time used alcohol prior to most recent admission. Review of Systems Review of Systems ROS Unobtainable: unobtainable due to mental status Past Medical History Past Medical History Comments PMH COMMENT: PMH: alcohol use disorder, esophageal varices s/p banding, hypertension, hyperlipidemia, DM2, HFpEF (EF 55 to 60%) and biliary dyskinesia Allergies: NKDA Social Hx: Per chart review does not smoke or use illicit drugs. Last time used alcohol prior to most recent admission. Exam Vital Signs Temp Pulse Resp BP Pulse Ox O2 Del Method O2 Flow Rate 95.2 F L 72 16 96/53 L 100 Room Air 15 05/15/24 01:04 05/15/24 01:04 05/15/24 01:04 05/15/24 01:04 05/15/24 01:04 05/15/24 00:47 05/14/24 21:24 Narrative Exam General: A/O x1 (only to person), no acute distress, ill appearing Eyes: PERRL, EOMI. Icteric, vision grossly intact. Ears: no ear discharge, Hearing grossly intact. Nose: No nasal discharge. Mouth/Throat: Dry mucous membranes, no redness, no lesions, dry blood around lips Neck: Neck supple, non-tender, no cervical lymphadenopathy. Lungs: Clear WAYNE to auscultation and percussion, No accessory muscle use. Cardio: Normal S1/S2, regular rhythm, no murmurs, no JVD Abdomen: Soft, but distended, non-tender, no palpable masses, peristalsis present, no guarding or rebound. Extremities: Symmetrical, no significant deformities, no peripheral edema , non-tender, peripheral pulses presents. Skin: No rashes, no lesions, warm to touch, jaundice noted Neuro: Able to follow commands, but unable to give history of reason why he is in the hospital (A/O x1 only to person) Results: Labs 05/15/24 04:58 05/15/24 04:58 Labs: Short CBC 05/14/24 Range/Units 21:45 WBC 26.7 H (3.8-10.6) Thou/mm3 Hgb 5.8 L* (13.5-16.0) g/dL Hct 18.0 L* (41.0-53.0) % Plt Count 236 D (140-440) Thou/mm3 BMP 05/14/24 21:46 Sodium 140 Potassium 3.8 Chloride 109 H Carbon Dioxide 10.3 L* BUN 62 H Creatinine 2.6 H Glucose 155 H Calcium 8.7 Liver Function 05/14/24 Range/Units 21:46 Total Bilirubin 23.0 H* (0.3-1.2) mg/dL AST 76 H (0-34) U/L ALT 84 H (10-49) U/L Alkaline Phosphatase 152 H (46-116) U/L Albumin 2.0 L (3.5-5.0) gm/dL Quality Measures Quality Measures VTE prophylaxis (SCDs) Medications Home Medications and Allergies Allergies Allergy/AdvReac Type Severity Reaction Status Date / Time No Known Allergies Allergy Verified 04/05/17 18:56 Visit Medications Acetaminophen (Acetaminophen Supp 650 Mg Supp) 650 mg [place] Q6HR PRN PRN Reason: pain and Fever > 100.4 Stop: 06/14/24 01:16 Dextrose (Dextrose 50%-Water Inj 50 Ml Syringe) 25 ml IV Q15MIN PRN PRN Reason: BG 50-70 responsive npo pt Stop: 06/14/24 01:21 Dextrose (Dextrose 50%-Water Inj 50 Ml Syringe) 50 ml IV Q15MIN PRN PRN Reason: BG <50 OR BG <70 & pt unresponsive Stop: 06/14/24 01:21 Glucagon (Glucagon Inj 1 Mg Vial) 1 mg IM Q15MIN PRN PRN Reason: BG <70, and no IV access Octreotide Acetate 1,000 mcg/ (Sodium Chloride) 102 mls @ 5.1 mls/hr IV .Q20H SREE; Protocol Stop: 05/19/24 22:22 Octreotide Acetate 1,000 mcg/ (Sodium Chloride) 102 mls @ 5.1 mls/hr IV .Q20H SREE; Protocol Stop: 05/15/24 18:29 Last Admin: 05/14/24 22:31 Dose: 50 mcg/hr, 5.1 mls/hr Ceftriaxone Sodium 1,000 mg/ (Sodium Chloride) 50 mls @ 100 mls/hr IV QDAY SREE Stop: 05/22/24 08:59 Albumin Human (Albuminar-25 Ivpb) 25 gm in 100 mls @ 100 mls/hr IV X1 ONE Stop: 05/15/24 02:25 Albumin Human (Albuminar-25 Ivpb) 25 gm in 100 mls @ 100 mls/hr IV X1 ONE Stop: 05/15/24 02:26 Albumin Human (Albuminar-25 Ivpb) 25 gm in 100 mls @ 100 mls/hr IV X1 ONE Stop: 05/15/24 02:26 Insulin Human Lispro (Insulin Lispro (Admelog) 1 Unit/0.01 Ml Unit) 0 unit SC Q6HR SREE; Protocol Stop: 06/14/24 05:59 Ondansetron HCl (Ondansetron Inj 2 Mg/Ml Inj 2 Ml) 4 mg IV Q6H PRN; Protocol PRN Reason: NAUSEA OR VOMITING Stop: 06/14/24 01:16 Pantoprazole Sodium (Pantoprazole Inj 40 Mg Vial) 40 mg IVP BID SREE Stop: 06/14/24 08:59 Discontinued Medications Ceftriaxone Sodium 1,000 mg/ (Sodium Chloride) 50 mls @ 100 mls/hr IV X1 ONE Stop: 05/14/24 22:50 Last Infusion: 05/14/24 23:05 Dose: Infused Metoclopramide HCl (Metoclopramide Inj 5 Mg/Ml Vial 2 Ml) 10 mg IVP X1 ONE; Protocol Stop: 05/14/24 22:23 Last Admin: 05/14/24 22:30 Dose: 10 mg Octreotide Acetate (Octreotide Acet Inj 50 Mcg/Ml Vial) 50 mcg IV X1 ONE Stop: 05/14/24 21:32 Last Admin: 05/14/24 22:14 Dose: 50 mcg Pantoprazole Sodium (Pantoprazole Inj 40 Mg Vial) 80 mg IV X1 ONE Stop: 05/14/24 21:32 Last Admin: 05/14/24 22:12 Dose: 80 mg Assessment & Plan Plan 59-year-old male with past medical history of alcohol use disorder, esophageal varices s/p banding, hypertension, hyperlipidemia, DM2, HFpEF (EF 55 to 60%) and biliary dyskinesia was admitted to the hospital on 05/15/2024 due to acute blood loss anemia in the setting of GI bleed as well as acute metabolic encephalopathy most likely in the setting of cirrhosis with hyperammonemia. #Acute blood loss anemia #GI bleed #Hx of Grade 3 esophageal varices s/p banded #Hx of alcohol use disorder ?Patient came in with complaints of black starry stools and bloody emesis witnessed in the ED ? Initial hemoglobin was 5.8 - EGD done during previous admission on 04/28/2024 showed grade 3 esophageal varices which were banded as well as erythematous mucosa in the stomach. -FOBT positive ?Transfusing 2 units of PRBCs and 1 FFP Plan: ? Continue octreotide drip [05/14/2024?] ? Continue Protonix twice daily ? IV Rocephin 1 g daily [05/14/2024-] ?Follow-up on post transfusion H&H ? Bleeding precautions ? Will transfuse hemoglobin less than 7 ? GI consulted, appreciate recommendations #Acute Metabolic encephalopathy #Cirrhosis #Coagulopathy #Hyperbilirubinemia #Hyperammonemia #Ascites #Leukocytosis #SBP? - Patient A/Ox1 (only to person) likely due to hyperammonemia in the setting of cirrhosis ? Initial MELD NA score of 34 point indicating 65-66% mortality ? Initial Child-Garcia score of 13 points, Class C - Liver function is AST 76, ALT 84, alkaline phosphatase 152, ammonia 142, T bilirubin 23 - INR 1.8 and PT19.3 Plan: ? Continue octreotide drip [05/14/2024?] ? Continue Protonix ? IV Rocephin 1 g daily [05/14/2024-] - Head CT ordered ?Consider starting lactulose once patient passes swallow screen ? Will continue to monitor #JEANIE #Hypoalbuminemia ? Initial creatinine of 2.6 and BUN of 62 compared to patient's baseline which is currently around 1 ? Albumin 2 ? Most likely prerenal in the setting of GI bleed versus due to hepatorenal syndrome Plan: ?Albumin 75 g x 1 ? Patient getting 2 units of PRBC transfused -Sanchez ordered ?Avoid nephrotoxic agents ? Renally dose medication ? Will continue to monitor #High anion gap metabolic acidosis #Lactic acidosis -Patient has HAGMA likley secondary to lactic acidosis likely due to inability to clear -Will trend lactic acid #HFpEF (55-60%) ? Doesn't look fluid overloaded - Echo showed EF 55-60% #DM2 ? A1c 6.7% on 04/2024 Plan: ? ISS ? Hypoglycemia protocol ordered Disposition: admitted to tele due to Acute blood loss anemia likely 2/2 GI bleed, continue protonix, octeotride and Rocephin. Transfusing 2 PRBC and 1 FFP Diet: NPO GI prophylaxis: protonix DVT prophylaxis: SCDs Code: Full code Case disclosed with Attending Dr. Dennis Matos PGY1 Attending Provider Attestation/Addendum 59-year-old male patient with alcoholic cirrhosis, portal hypertension, history of varices status post banding was admitted for hematemesis with severe anemia. Patient's blood pressure is borderline. He has hyperammonemia. He has confusion. He appears very weak and jaundice. Blood transfusion was started in the emergency room. He was given octreotide drip, IV PPI. Will continue to monitor hemodynamic status. Dr. Liu was consulted. Discussed with housestaff.
[2024-05-15] MEDS: ALBUMIN HUMAN 25% IVPB 25 GM/100 ML BTL IV ×4 (01:54→08:42)
--- NOTE | 2024-05-15 02:02 | XR_ITS ---
Examination: CT brain head without contrast. 2-D sagittal coronal reconstructions Date and time of exam:The deformity at 0247 hrs. Indications: Syncopal episode today followed by altered mental status CTDI: vol (mGy):48.5 DLP: (mGycm):962 Technique: Multiple CT axial sections of the brain have been obtained, 5 mm slice thickness. Contrast has not been administered. 2-D sagittal, coronal reconstructions have been obtained Low dose protocols were performed. One or more of the following dose reduction techniques were used; automated exposure control, adjustment of the mA and/or KV according to patient size, use of iterative reconstruction technique. Findings: No significant ventricular enlargement. Intra-axial or extra-axial hemorrhage density is not seen. No mass effect or midline shift Basal cisterns are not remarkable. Fourth ventricle is midline. Cranial vault intact. Impression: Negative for acute hemorrhage, mass effect or midline shift Advise clinical correlation and follow-up accordingly
--- NOTE | 2024-05-15 02:25 | PC.NURSE ---
Received phone call from Dr. Cabrera, admitting resident, who stated not to give Platelets that are ordered and to only give FFP and pRBCs.
[2024-05-15 02:42] LABS: Lactic Acid, 3 HR 8.5 mMol/L (0.4-2.0)
[2024-05-15 03:09] LABS: Alcohol, Blood Medical < 3.0 mg/dL (0-10.0)
--- NOTE | 2024-05-15 03:32 | PRELIM_ITS ---
CT scan of the head without intravenous contrast (axial sections with sagittal and coronal reformats). May 15, 2024 0247 hours Clinical History: AMS No prior study is available for comparison. Findings: No evidence of intracranial hemorrhage, mass effect or midline shift. Tiny calcification in the right frontal lobe, likely granuloma. There is mild volume loss. The calvarium is unremarkable. The mastoid air cells and the visualized paranasal sinuses are clear. There is old right nasal bone fracture. Impression: No evidence of evidence of intracranial hemorrhage, mass effect or midline shift. Report Electronically Signed By: Ricky Mart 05/15/2024 3:32:11 AM [EST]
[2024-05-15 05:20] LABS: Basophils # (Auto) 0.1 Thou/mm3 (0.0-0.2); Basophils % (Auto) 0 % (0-2.5); Eosinophils % (Auto) 0 % (0-10); Hematocrit 21.1 % (41.0-53.0); Hemoglobin 7.1 g/dL (13.5-16.0); Immature Granulocytes % (Auto) 11 % (0-0); Immature Granulocytes Auto 2.22 Thou/mm3 (0.00-0.00); Lymphocytes # (Auto) 0.9 Thou/mm3 (1.0-4.8); Lymphocytes % (Auto) 4 % (10-50); Mean Corpuscular HGB Conc 33.6 g/dl (31.0-37.0); Mean Corpuscular Hemoglobin 27.6 pg (25.0-35.0); Mean Corpuscular Volume 82 fL (80-100); Monocytes # (Auto) 1.8 Thou/mm3 (0.0-0.8); Monocytes % (Auto) 9 % (0-12); Neutrophils # (Auto) 15.4 Thou/mm3 (1.8-7.7); Neutrophils % (Auto) 76 % (37-80); Nucleated Red Blood Cell # 0.03 Thou/mm3 (0.00-0.00); Nucleated Red Blood Cell % 0 /100 WBC (0); Platelet Count 111 Thou/mm3 (140-440); RDW Standard Deviation 56.1 fL (35.1-43.9); Red Blood Count 2.57 Miln/mm3 (4.50-5.90); White Blood Count 20.4 Thou/mm3 (3.8-10.6)
[2024-05-15] MEDS: ONDANSETRON INJ 2 MG/ML INJ 2 ML 4 MG IV (05:46)
[2024-05-15 05:51] LABS: Alanine Aminotransferase 80 U/L (10-49); Albumin, Serum 2.7 gm/dL (3.5-5.0); Albumin/Globulin Ratio 1.5 (1.2-2.2); Alkaline Phosphatase 106 U/L (46-116); Anion Gap 23 (7-16); Aspartate Amino Transferase 127 U/L (0-34); BUN/Creatinine Ratio 25 Ratio (12-20); Blood Urea Nitrogen 69 mg/dL (9-23); Calcium 8.6 mg/dL (8.3-10.6); Calcium (Corrected) 9.6 mg/dL (8.5-10.1); Chloride 106 mMol/L (98-107); Creatinine (Component) 2.8 mg/dL (0.6-1.3); Estimated Creatinine Clearance 24.7 mL/min (>60); Globulin 1.8 gm/dL (2.3-3.5); Glucose 144 mg/dL (74-106); Magnesium 2.3 mg/dL (1.6-2.6); Osmolality,Calculated 300 (275-295); Potassium 4.5 mMol/L (3.4-5.1); Sodium 139 mMol/L (136-145); Total Protein 4.5 gm/dL (5.7-8.2); eGFR 25 See Note
--- NOTE | 2024-05-15 05:52 | PD.RESEVENT ---
Documentation for date of: 05/15/24 Event Note Event Note: Rapid response was called around 5:40 AM due to patient having an episode of vomiting blood. Patient vomiting around 200 to 300 cc of black. He mentioned that he was feeling nauseated and was a little bit more distended. Patient's blood pressure at this time was stable in the 120s over 60s with good O2 saturations. Patient had gotten 3 units of PRBCs transfused as well as 1 FFP and hemoglobin was 7.1 prior to this episode, platelets had also dropped from 2 36-111. Ordered 1 units of platelets and 1 units of PRBC to be transfused as well as repeat CBC and coagulation panel. Spoke with GI specialist who stated to place NG tube with intermittent suction and that he would do an EGD today in the a.m. After our previous once I finish patient's blood pressure was still stable he was saturating well and answering questions appropriately. Case disclosed with Attending Dr. Dennis Matos PGY1
[2024-05-15 05:54] LABS: Bilirubin,Total 19.7 mg/dL (0.3-1.2); Carbon Dioxide 10.3 mMol/L (20.0-31.0)
[2024-05-15 06:01] LABS: Collection Type, Urine Clean Catch
[2024-05-15 06:17] LABS: Bilirubin,Urine 2+ (Negative); Blood,Urine Trace (Negative); Clarity,Urine Turbid (Clear/Hazy); Color,Urine Drk-Yellow (Lt Yel-Yel); Glucose, Urine Trace (Negative); Hyaline Casts,Urine < 1 /hpf (0-1); Ketones,Urine Negative (Negative); Leukocyte Esterase,Urine Negative (Negative); Nitrite,Urine Negative (Negative); Protein,Urine 1+ (Neg - Trace); RBC,Urine 4 /hpf (0-3); Specific Gravity,Urine 1.019 (1.001-1.035); Squamous Epithelial Cell,Urine 5 /hpf (0-5); Urobilinogen,Urine Negative mg/dL (0.0-1.0); WBC,Urine 14 /hpf (0-5)
[2024-05-15 06:18] LABS: Amphetamine/Methamp Scrn,U Negative (Negative); Barbiturate Screen,Urine Negative (Negative); Benzodiazepines Screen,Urine Negative (Negative); Benzoylecgonine Screen, Ur Negative (Negative); Fentanyl Screen,Urine Negative (Negative); Opiate Screen,Urine Negative (Negative); THC Screen,Urine Negative (Negative)
[2024-05-15 06:54] LABS: Basophils # (Auto) 0.1 Thou/mm3 (0.0-0.2); Basophils % (Auto) 0 % (0-2.5); Eosinophils # (Auto) 0.1 Thou/mm3 (0.0-0.5); Eosinophils % (Auto) 0 % (0-10); Hematocrit 20.3 % (41.0-53.0); Immature Granulocytes % (Auto) 11 % (0-0); Immature Granulocytes Auto 2.31 Thou/mm3 (0.00-0.00); Lymphocytes # (Auto) 1.1 Thou/mm3 (1.0-4.8); Lymphocytes % (Auto) 5 % (10-50); Mean Corpuscular Volume 83 fL (80-100); Monocytes # (Auto) 2.2 Thou/mm3 (0.0-0.8); Monocytes % (Auto) 10 % (0-12); Neutrophils % (Auto) 74 % (37-80); Nucleated Red Blood Cell # 0.02 Thou/mm3 (0.00-0.00); Nucleated Red Blood Cell % 0 /100 WBC (0); Platelet Count 129 Thou/mm3 (140-440); Red Blood Count 2.46 Miln/mm3 (4.50-5.90); White Blood Count 21.7 Thou/mm3 (3.8-10.6)
[2024-05-15 07:03] LABS: Hemoglobin 6.9 g/dL (13.5-16.0)
[2024-05-15 07:33] LABS: Partial Thromboplastin Time 52.1 Seconds (22.0-36.0); Prothrombin Time 20.9 Seconds (9.0-12.2)
[2024-05-15] MEDS: SODIUM BICARB INJ 8.4% 1 mEq/ML 50 ML VIAL 50 MEQ IV ×3 (08:40→09:40)
[2024-05-15] MEDS: LACTULOSE SYRUP 20 GM/30 ML UDC PR (08:42)
[2024-05-15 08:56] LABS: Base Excess -15 (-3-3); HCO3 10 mEq/L (20-26); Inspired O2, VO2 Liters 1 L/min; PCO2 20 mmHg (32.0-48.0); PO2 116 mmHg (83-108); pH, Arterial 7.31 (7.35-7.45)
[2024-05-15 08:58] LABS: Allen Test Not Performed; O2 Saturation 98 % (91-98); Puncture Site Left Radial
--- NOTE | 2024-05-15 08:59 | XR_ITS ---
Examination: Chest, AP, portable, single view post procedure. Technique: Chest, AP upright, portable, single view Date and time: 05/15/2024, 8:04 AM Indication NG tube placement COMPARISON: 05/14/2024. FINDINGS: Interval placement of NG tube with distal tip in the stomach. Lungs remain clear. No other interval changes. IMPRESSION: NG tube placement as above
[2024-05-15] MEDS: RINGERS LACTATED 1000 ML 1,000 ML 999 ML IV ×3 (09:30→21:22)
[2024-05-15] MEDS: PANTOPRAZOLE INJ 40 MG VIAL IV (09:53)
--- NOTE | 2024-05-15 09:54 | PC.SS ---
SS spoke to Dr. Simons in regards to a decision maker for the pt. SS attempted to contact pt son Benjamin Oconnell [phone], no answer. VM left with call back. SS then contacted pt ex-gf of 10 years Cortney Wood [phone], per Cortney she does not want to be financially responsible for the pt. SS explained in the case of an emergency we need someone to be able to make medical decisions for the pt. Per Cortney the pt only has one son Benjamin Oconnell. Cortney confirmed number we have on file is correct. Cortney also stated she lives down the street from the pts Uncle, and she would go to their house and hopefully be able to get in touch with someone from his family. SS explained to Cortney if the pt is in critical condition we need someone to make decisions for him and Cortney stated she can help if it is an emergency situation until we can establish a DM from family.
[2024-05-15 10:00] LABS: Lactate (Lactic Acid) 11.8 mMol/L (0.4-2.0)
[2024-05-15 10:07] LABS: Anion Gap 23 (7-16); BUN/Creatinine Ratio 26 Ratio (12-20); Blood Urea Nitrogen 62 mg/dL (9-23); Calcium 8.2 mg/dL (8.3-10.6); Chloride 107 mMol/L (98-107); Creatinine (Component) 2.4 mg/dL (0.6-1.3); Estimated Creatinine Clearance 30.8 mL/min (>60); Glucose 126 mg/dL (74-106); Osmolality,Calculated 302 (275-295); Potassium 4.5 mMol/L (3.4-5.1); Sodium 142 mMol/L (136-145); eGFR 30 See Note
[2024-05-15 10:08] LABS: INR 2.2 (0.9-1.3); Prothrombin Time 22.6 Seconds (9.0-12.2)
--- NOTE | 2024-05-15 10:08 | PD.IMCONS ---
HPI Data of Consult Requesting Physician: Ricky Collins MD Primary Care Provider: Gamal Bonilla MD Consult Narrative Reason for consult: Hematemesis, melena, posthemorrhagic anemia. History of present illness: No history obtained from the patient as he is encephalopathic Patient evaluated in the ICU room 254 I been consulted for hematemesis and melanotic stools with anemia blood loss requiring blood transfusion Patient is actively bleeding I do have a previous encounter with the patient and on 04/28/2024 he underwent upper endoscopy when his clinical presentation was with melanotic stool requiring band ligation of the esophageal varices As per chart review patient continues to drink cc:: cc: Ricky Collins MD Review of Systems Review of Systems ROS Unobtainable: unobtainable due to medical condition Meds Home Medications and Allergies Home Medications ?Medication ?Instructions ?Recorded ?Confirmed ?Type No Known Home Medications 12/31/17 12/31/17 History Allergies Allergy/AdvReac Type Severity Reaction Status Date / Time No Known Allergies Allergy Verified 05/15/24 06:35 Exam Vital Signs Temp Pulse Resp BP Pulse Ox O2 Del Method O2 Flow Rate 97.6 F 92 16 142/67 H 99 Nasal Cannula 0 05/15/24 09:51 05/15/24 09:51 05/15/24 09:51 05/15/24 09:51 05/15/24 09:51 05/15/24 08:00 05/15/24 09:51 Constitutional Comments: Chronically ill-appearing Routine HEENT Exam Comments: Icteric sclera Routine Abdominal Exam Comments: Positive for ascites Results Labs 05/15/24 09:31 05/15/24 09:31 Labs: Short CBC 05/14/24 05/15/24 05/15/24 Range/Units 21:45 04:58 06:04 WBC 26.7 H 20.4 H D 21.7 H (3.8-10.6) Thou/mm3 Hgb 5.8 L* 7.1 L D 6.9 L* (13.5-16.0) g/dL Hct 18.0 L* 21.1 L* 20.3 L* (41.0-53.0) % Plt Count 236 D 111 L D 129 L (140-440) Thou/mm3 BMP 05/14/24 05/15/24 21:46 04:58 Sodium 140 139 Potassium 3.8 4.5 D Chloride 109 H 106 Carbon Dioxide 10.3 L* 10.3 L* BUN 62 H 69 H Creatinine 2.6 H 2.8 H Glucose 155 H 144 H Calcium 8.7 8.6 Liver Function 05/14/24 05/15/24 Range/Units 21:46 04:58 Total Bilirubin 23.0 H* 19.7 H* D (0.3-1.2) mg/dL AST 76 H 127 H (0-34) U/L ALT 84 H 80 H (10-49) U/L Alkaline Phosphatase 152 H 106 D (46-116) U/L Albumin 2.0 L 2.7 L D (3.5-5.0) gm/dL Urine 05/15/24 Range/Units 04:45 Urine Color Drk-Yellow A (Lt Yel-Yel) Urine Clarity Turbid A (Clear/Hazy) Urine pH 6.0 (5.0-7.0) Ur Specific Mayflower 1.019 (1.001-1.035) Urine Protein 1+ A (Neg - Trace) Urine Glucose (UA) Trace (Negative) ABG Interpretation ABG results: 05/15/24 08:45 ABG pH 7.31 L ABG pCO2 20 L ABG pO2 116 H ABG HCO3 10 L ABG O2 Saturation 98 ABG Base Excess -15 L Assessment and Plan Additional Assessment & Plan Additional Plan: Acute upper GI bleed in the form of melena and hematemesis Acute posthemorrhagic anemia in the setting of chronic liver disease with thrombocytopenia and coagulopathy Plan Continue supportive care Patient will have to be intubated to protect the airway as well as he is clenching his mouth and I cannot open his jaw to place bite block I have asked the intensive care unit specialist Dr. Bruner to intubate the patient paralyze him so I can proceed with the procedure she was kind enough to do so Octreotide drip at 50 mcg/h Protonix drip Serial CBC Will follow the patient
[2024-05-15 10:09] LABS: Hematocrit 17.9 % (41.0-53.0)
[2024-05-15 10:10] LABS: Carbon Dioxide 12.1 mMol/L (20.0-31.0)
--- NOTE | 2024-05-15 10:24 | PD.RESCONSUL ---
HPI Data of Consult Requesting Physician: Ricky Collins MD Admitting Provider: Ricky Collins MD Attending Provider: Ricky Collins MD Primary Care Provider: Gamal Bonilla MD Consult Narrative History of present illness: per HPI : 59-year-old male with past medical history of alcohol use disorder, esophageal varices s/p banding, hypertension, hyperlipidemia, DM2, HFpEF (EF 55 to 60%) and biliary dyskinesia was admitted to the hospital on 05/15/2024 after coming to the ED with complaints of black starry stools and a witnessed bloody emesis. Upon my assessment patient was only able x 1 only to his name. He was unable to provide any history of what events led him to come to the hospital. He was only able to follow some simple commands, but cannot respond to complex questions about history. Most of the history was taken per chart review as patient unable to provide history and tried contacting family, but was unsuccessful. Per chart review patient had been having black starry stools for 4 days and was hypoxic when EMS evaluated the patient. Patient stated that he has not drink alcohol for the past 15 days, but most likely 1 time has passed as he was in the hospital recently for multiple days. At the time of assessment patient's blood pressure was on the lower end, but maintaining a MAP above 65. Patient noted to have an JEANIE likely in the setting of acute blood loss anemia. Patient also had some lactic acidosis along with hyperammonemia. Patient did not have any active bleeding during assessment and there was only some dried blood around patient's mouth and on his chest mostly from the bloody emesis episode he had in the ED. 05/15/24: There were 2 rapid responses this morning for large bloody bowel movement. His hemoglobin in was 5.8 and he received 4 units of PRBC , the repeat hb is 6, we willl give him additional 3 Units of PRBC. he received 1 units of prbc and 1Unit of FFP . we will give him 1 gm of calcium carbonate. Dr calabrese is planning to do EGD today around 11 am, he came to evulate the patient, he could not pass the EGD probe because his jaw was clenched and was difficult to open his mount , so decision was made to intubate him . 2 mg of ativa, rocurium and fentanyl was used . . started him on albumin of possible HRS . and will monitor his kidney function . Dr calabrese did EGD which showed diffuse blood oozing from everywhere and he could not clipped it, this patient will need TIPS and transfer to higher center. cc:: cc: Ricky Collins MD Review of Systems Review of Systems Systems Reviewed: All systems reviewed, normal except as documented Narrative Review of Systems: GENERAL:Severly icteric Ill looking man,Currently intubated and MV HEENT: Normocephalic, atraumatic. Pupils are equal and reactive. icteric sclera, teeth loose with dryed blood in mucosa. NECK: Supple, nontender, no JVD CARDIOVASCULAR: Heart regular rhythm & rate. S1/S2. no murmur or gallop rub or extra beats. LUNGS: Clear to auscultation bilaterally with symmetrical chest rise. No laboring tachypnea or wheezing. No intercostal subcostal retraction. No rales and no rhonchi. ABDOMEN: Distended Active and normal bowel sounds. EXTREMITIES/skin : Icteric , smill necrotic area around right big toe NEURO: Intubated and MV PSYCHIATRIC: Intubated and MV Exam Vital Signs Temp Pulse Resp BP Pulse Ox O2 Del Method O2 Flow Rate 97.6 F 92 16 142/67 H 99 Nasal Cannula 0 05/15/24 09:51 05/15/24 09:51 05/15/24 09:51 05/15/24 09:51 05/15/24 09:51 05/15/24 08:00 05/15/24 09:51 Results Labs 05/15/24 14:03 05/15/24 14:03 Labs: Short CBC 05/14/24 05/15/24 05/15/24 Range/Units 21:45 04:58 06:04 WBC 26.7 H 20.4 H D 21.7 H (3.8-10.6) Thou/mm3 Hgb 5.8 L* 7.1 L D 6.9 L* (13.5-16.0) g/dL Hct 18.0 L* 21.1 L* 20.3 L* (41.0-53.0) % Plt Count 236 D 111 L D 129 L (140-440) Thou/mm3 05/15/24 Range/Units 09:31 WBC (3.8-10.6) Thou/mm3 Hgb 6.0 L* (13.5-16.0) g/dL Hct 17.9 L* (41.0-53.0) % Plt Count (140-440) Thou/mm3 BMP 05/14/24 05/15/24 05/15/24 21:46 04:58 09:31 Sodium 140 139 142 Potassium 3.8 4.5 D 4.5 Chloride 109 H 106 107 Carbon Dioxide 10.3 L* 10.3 L* 12.1 L* BUN 62 H 69 H 62 H Creatinine 2.6 H 2.8 H 2.4 H Glucose 155 H 144 H 126 H Calcium 8.7 8.6 8.2 L Liver Function 05/14/24 05/15/24 Range/Units 21:46 04:58 Total Bilirubin 23.0 H* 19.7 H* D (0.3-1.2) mg/dL AST 76 H 127 H (0-34) U/L ALT 84 H 80 H (10-49) U/L Alkaline Phosphatase 152 H 106 D (46-116) U/L Albumin 2.0 L 2.7 L D (3.5-5.0) gm/dL Urine 05/15/24 Range/Units 04:45 Urine Color Drk-Yellow A (Lt Yel-Yel) Urine Clarity Turbid A (Clear/Hazy) Urine pH 6.0 (5.0-7.0) Ur Specific [place] 1.019 (1.001-1.035) Urine Protein 1+ A (Neg - Trace) Urine Glucose (UA) Trace (Negative) ABG Interpretation ABG results: 05/15/24 08:45 ABG pH 7.31 L ABG pCO2 20 L ABG pO2 116 H ABG HCO3 10 L ABG O2 Saturation 98 ABG Base Excess -15 L Quality Measures Quality Measures VTE prophylaxis (SCDs) Medications Home Medications and Allergies Home Medications ?Medication ?Instructions ?Recorded ?Confirmed ?Type No Known Home Medications 12/31/17 12/31/17 History Allergies Allergy/AdvReac Type Severity Reaction Status Date / Time No Known Allergies Allergy Verified 05/15/24 06:35 Visit Medications Acetaminophen (Acetaminophen Supp 650 Mg Supp) 650 mg CO Q6HR PRN PRN Reason: pain and Fever > 100.4 Stop: 06/14/24 01:16 Dextrose (Dextrose 50%-Water Inj 50 Ml Syringe) 25 ml IV Q15MIN PRN PRN Reason: BG 50-70 responsive npo pt Stop: 06/14/24 01:21 Dextrose (Dextrose 50%-Water Inj 50 Ml Syringe) 50 ml IV Q15MIN PRN PRN Reason: BG <50 OR BG <70 & pt unresponsive Stop: 06/14/24 01:21 Glucagon (Glucagon Inj 1 Mg Vial) 1 mg IM Q15MIN PRN PRN Reason: BG <70, and no IV access Octreotide Acetate 1,000 mcg/ (Sodium Chloride) 102 mls @ 5.1 mls/hr IV .Q20H SREE; Protocol Stop: 05/19/24 22:22 Octreotide Acetate 1,000 mcg/ (Sodium Chloride) 102 mls @ 5.1 mls/hr IV .Q20H SREE; Protocol Stop: 05/15/24 18:29 Last Admin: 05/14/24 22:31 Dose: 50 mcg/hr, 5.1 mls/hr Albumin Human (Albuminar-25 Ivpb) 25 gm in 100 mls @ 100 mls/hr IV QDAY SREE Stop: 05/18/24 07:48 Last Admin: 05/15/24 08:42 Dose: 100 mls/hr Piperacillin/Tazobactam/Dextrose (Zosyn) 3.375 gm in 50 mls @ 12.5 mls/hr IV Q8HR SREE; Protocol Stop: 05/22/24 13:59 Insulin Human Lispro (Insulin Lispro (Admelog) 1 Unit/0.01 Ml Unit) 0 unit SC Q6HR SREE; Protocol Stop: 06/14/24 05:59 Last Admin: 05/15/24 05:58 Dose: Not Given Lactulose (Lactulose Syrup 20 Gm/30 Ml Udc) 20 gm CO TID SREE; Protocol Stop: 06/14/24 07:59 Last Admin: 05/15/24 08:42 Dose: 20 gm Ondansetron HCl (Ondansetron Inj 2 Mg/Ml Inj 2 Ml) 4 mg IV Q6H PRN; Protocol PRN Reason: NAUSEA OR VOMITING Stop: 06/14/24 01:16 Last Admin: 05/15/24 05:46 Dose: 4 mg Pantoprazole Sodium (Pantoprazole Inj 40 Mg Vial) 80 mg IVP BID [facility] Stop: 06/14/24 20:59 Discontinued Medications Ceftriaxone Sodium 1,000 mg/ (Sodium Chloride) 50 mls @ 100 mls/hr IV X1 ONE Stop: 05/14/24 22:50 Last Infusion: 05/14/24 23:05 Dose: Infused Ceftriaxone Sodium 1,000 mg/ (Sodium Chloride) 50 mls @ 100 mls/hr IV QDAY SREE Stop: 05/22/24 08:59 Albumin Human (Albuminar-25 Ivpb) 25 gm in 100 mls @ 100 mls/hr IV X1 ONE Stop: 05/15/24 02:25 Last Infusion: 05/15/24 02:54 Dose: Infused Albumin Human (Albuminar-25 Ivpb) 25 gm in 100 mls @ 100 mls/hr IV X1 ONE Stop: 05/15/24 02:26 Last Infusion: 05/15/24 04:08 Dose: Infused Albumin Human (Albuminar-25 Ivpb) 25 gm in 100 mls @ 100 mls/hr IV X1 ONE Stop: 05/15/24 02:26 Last Admin: 05/15/24 04:38 Dose: 100 mls/hr Lactated Ringer's (Lactated Ringers) 1,000 mls @ 999 mls/hr IV .Q1H1M ONE Stop: 05/15/24 09:39 Last Admin: 05/15/24 09:30 Dose: 999 mls/hr Lactated Ringer's (Lactated Ringers) 1,000 mls @ 999 mls/hr IV .Q1H1M ONE Stop: 05/15/24 10:18 Last Admin: 05/15/24 09:51 Dose: Not Given Lactated Ringer's (Lactated Ringers) 1,000 mls @ 999 mls/hr IV .Q1H1M ONE Stop: 05/15/24 10:19 Last Admin: 05/15/24 09:51 Dose: Not Given Piperacillin/Tazobactam/Dextrose (Zosyn) 3.375 gm in 50 mls @ 100 mls/hr IV X1 ONE Stop: 05/15/24 10:14 Metoclopramide HCl (Metoclopramide Inj 5 Mg/Ml Vial 2 Ml) 10 mg IVP X1 ONE; Protocol Stop: 05/14/24 22:23 Last Admin: 05/14/24 22:30 Dose: 10 mg Octreotide Acetate (Octreotide Acet Inj 50 Mcg/Ml Vial) 50 mcg IV X1 ONE Stop: 05/14/24 21:32 Last Admin: 05/14/24 22:14 Dose: 50 mcg Pantoprazole Sodium (Pantoprazole Inj 40 Mg Vial) 80 mg IV X1 ONE Stop: 05/14/24 21:32 Last Admin: 05/14/24 22:12 Dose: 80 mg Pantoprazole Sodium (Pantoprazole Inj 40 Mg Vial) 40 mg IVP BID RSEE Stop: 06/14/24 08:59 Pantoprazole Sodium (Pantoprazole Inj 40 Mg Vial) 40 mg IV X1 ONE Stop: 05/15/24 09:36 Last Admin: 05/15/24 09:53 Dose: 40 mg Phytonadione (Phytonadione Inj 10 Mg/Ml Amp) 10 mg IM X1 ONE Stop: 05/15/24 09:22 Sodium Bicarbonate (Sodium Bicarb Inj 8.4% 1 Meq/Ml 50 Ml Vial) 50 meq IV X1 ONE Stop: 05/15/24 07:41 Last Admin: 05/15/24 08:40 Dose: 50 meq Sodium Bicarbonate (Sodium Bicarb Inj 8.4% 1 Meq/Ml 50 Ml Vial) 50 meq IV X1 ONE Stop: 05/15/24 07:41 Last Admin: 05/15/24 08:42 Dose: 50 meq Sodium Bicarbonate (Sodium Bicarb Inj 8.4% 1 Meq/Ml 50 Ml Vial) 50 meq IV X1 ONE Stop: 05/15/24 09:26 Last Admin: 05/15/24 09:40 Dose: 50 meq Assessment & Plan Plan 59-year-old male with past medical history of alcohol use disorder, esophageal varices s/p banding, hypertension, hyperlipidemia, DM2, HFpEF (EF 55 to 60%) and biliary dyskinesia was admitted to the hospital on 05/15/2024 after coming to the ED with complaints of black starry stools and a witnessed bloody emesis. Upon my assessment patient was only able x 1 only to his name. He was unable to provide any history of what events led him to come to the hospital. He was only able to follow some simple commands, but cannot respond to complex questions about history. Most of the history was taken per chart review as patient unable to provide history and tried contacting family, but was unsuccessful. Per chart review patient had been having black starry stools for 4 days and was hypoxic when EMS evaluated the patient. Patient stated that he has not drink alcohol for the past 15 days, but most likely 1 time has passed as he was in the hospital recently for multiple days. At the time of assessment patient's blood pressure was on the lower end, but maintaining a MAP above 65. Patient noted to have an JEANIE likely in the setting of acute blood loss anemia. Patient also had some lactic acidosis along with hyperammonemia. Patient did not have any active bleeding during assessment and there was only some dried blood around patient's mouth and on his chest mostly from the bloody emesis episode he had in the ED. [employer] SAL[employer] DIRECT[employer] #Hepatic Encephalopathy - Head CT Negative -Ammonia on admission was 142 -Lactulose currently on hold in the setting of active bleed per rectum and NG tube. -Intubated and mechanically ventilated -On Precedex drip with RASS score of 0 RESPI Intubated and MV -Vent setting- A/CMV VC , VT- 450, flow -70, rr- 30 ,PPEP-5 CVS #class 3 hemorrhagic shock -Class III hemorrhage involves a 30 to 40 percent blood volume loss, resulting in a significant drop in blood pressure and changes in mental status -he has received till now 7 units of prbc , blood pressure mildly dropping down, with tachycardia around 110 -we will continue to monitor and give blood products untill he gets TIPS . #history of HTN #History of HLD #HFpEF (55-60%) ? Doesn't look fluid overloaded - Echo showed EF 55-60% GI #Acute blood loss anemia #GI bleed #Hx of Grade 3 esophageal varices s/p banded (04/28) #Hx of alcohol use disorder ?Patient came in with complaints of black starry stools and bloody emesis witnessed in the ED ? Initial hemoglobin was 5.8 - EGD done during on 04/28/2024 showed grade 3 esophageal varices which were banded as well as erythematous mucosa in the stomach. -FOBT positive -patient received 5 U prbc , 1 U of FFP and 1U of platelets till now -Dr. Calabrese scoped the patient and showed 1+ esophageal varices and bleeding were going everywhere and was not large enough for band ligation , and the band attenp failed ,and he will need transfer for TIPS shunt. -will continue octeotride and blood products and transfer the patient to higher center . #Cirrhosis #Coagulopathy #Hyperbilirubinemia #Hyperammonemia #Ascites #Leukocytosis #SBP? - Patient A/Ox1 (only to person)on admission , likely due to hyperammonemia in the setting of cirrhosis - MELD NA score of 34 point indicating 65-66% mortality - Initial Child-Garcia score of 13 points, Class C - Liver function is AST 76, ALT 84, alkaline phosphatase 152, ammonia 142, T bilirubin 23 - INR 2.2 and PT 22.6 - Continue octreotide drip [05/14/2024?] ?Continue Protonix -Continue Zosyn -Patient will need TIPS shunt and we will transfer the pt to higher center RENAL #JEANIE #Hypoalbuminemia #?Hepato renal syndrome - Initial creatinine of 2.6 and BUN of 62 compared to patient's baseline which is currently around 1 -Albumin 2 -Most likely prerenal in the setting of GI bleed versus due to hepatorenal syndrome -Albumin 75 g x 1, will follow 25% albumin:?IV:?Initial: 1 g/kg daily for 2 days (maximum: 100 g/day), followed by 20 to 50 g daily until clinical outcome is achieved -Patient is getting massive blood transfusion and received 4 units of LR -Sanchez in place -Avoid nephrotoxic agents -Renally dose medication -Will continue to monitor #High anion gap metabolic acidosis #Lactic acidosis -Patient has HAGMA likley secondary to lactic acidosis likely due to inability to clear lactic acid -He has high anion gap metabolic acidosis with secondary respiratory alkalosis -delta gap was 1.04 -Will trend lactic acid -Will follow up on Abg ENDO #DM2 -A1c 6.7% on 04/2024 -ISS - Hypoglycemia protocol ordered ID #?[id number] -he is on zosyn , we will get peritoneal fluid analysis onc patient is more stable Heme #DIC -ISTH criteria for DIC 5 points - compatible with DIC -DIC czfhow-OL-21.9,inr-2, ptt-51.8, fibrinogen- 87, D- dimer 1050 -will give cryoprecipitate -follow up on DIC pannel Lines : 4 peripheral 2 -20 G and 2- 22G Disposition:Intubated in ICU for GI bleed Diet and fluids:NPO, prbc , ffp and ffp DVT prophylaxis:None ,scd GI prophylaxis:proyonix CODE STATUS:Full code Discussed the patient with my attending Dr Bruner, Gabrielle Ardon MD,PGY-3 Attending Provider Attestation/Addendum pt seen and examined with resident. In brief this is a 59y oM admitted to the hospital for GIB. A RR was called on the floor for ongoing active bleeding. He was found to have a GCS of 9 with dark coffee ground from NGT and copious melanotic stools. there was dried blood in his oropharynx and was jaundiced and icteric. LCTAB, HRRR, tachy, abd s/nt/bs+, pulses palp, moves all 4 extremities sluggishly. He was brought to ICU and GI was consulted. Gpt was intubated for airway protection and pt was scoped with GI. There was diffuse oozing with no clear site of bleed per GI. He had varices however nothing that was able to be banded. He has received 7u PRBCs thus far along with FFP , PLT, cryo , Ca and HCO3. His BP is stable and not on vasopressors. He has also received several lts of IVF. He has some LA along with some resp acidosis and additional vent changes were made. He has JEANIE which is felt to be due to his active bleed. LA on last check was starting to trend down however with his h/o cirrhosis anticipate that it will be slow. GI recs are for transfer for TIPS . case d/w ICU , floor team and GI labs, imaging, records reviewed ~85ccmin required for eval, exam, review, intervention, discussion and formulation of POC for this critically ill pt with GIB, hepatic encephalopathy and acute resp failure at high risk for further and ongoing decompensation
--- NOTE | 2024-05-15 10:31 | PC.SS ---
Addendum entered by Abigail Timmons 05/15/24 12:52: SS received call from patient's son Benjamin Jordan [phone], he stated he would be Alternate medical decision maker for patient. Patient's son Benjamin explained he would not be able to provide care for patient at the time of discharge. Patient's son was unable to confirm patient's home address. Patient's son stated he does not have a good relationship with patient but is willing to make decisions for his medical care. Addendum entered by Abigail Timmons 05/15/24 11:16: SS received call from patient's son Benjamin Jordan [phone], he explained he would be speaking to family to assign a decision maker for patient. Patient's son stated he would be calling SS as soon he spoke to family. Original Note: SS received call from Cortney [phone] and she informed SS she no longer wants to be the alternate medical decision maker. Cortney stated she was unable to locate patient's uncle who lives down the street from her. Cortney stated she would continue trying to make contact with patient's family and will update SS. SS attempted to contact patient's son Benjamin Jordan [phone], no success. A message was left requesting a return call.
[2024-05-15 11:26] LABS: Reflex Lactate? Y
[2024-05-15] MEDS: CALCIUM GLUC/NS 1000MG IVPB 1,000 MG/50 ML BAG 50 MG IV (11:40)
--- NOTE | 2024-05-15 12:01 | EVENTNT_ITS ---
<Statement entered by Terry Sullivan MD - 05/15/24 18:28> I have examined the patient, reviewed labs and imaging findings, discussed the case with the resident(s), and reviewed entered orders. Patient had large episode of melena with black liquid coming out of NG tube is in place. Heart rate is also risen over the last few hours from the 70s up to 100, holding there. Given 1 L of fluid open and ordered another unit of blood to be transfused as well as FFP and vitamin K. Discussed case with ICU who is concerned about patient's mental status for upcoming EGD. They agree to accept patient for upgrade at this time, appreciate their assistance with this critically ill patient. Terry Sullivan MD <Statement entered by Amado Cooper MD - 05/15/24 15:30> I saw and examined the patient, and I agree with current management stated by Dr Ronak MD,PGY1. Plan of care was discussed with the attending physician and resident physician. Disclaimer: Despite multiple revisions, due to the dictation software being used, the document bellow may not be free of grammatical errors including phonetic/typographic errors. However, this does not deter from our commitment to providing health care in the patient's best interest in mind. Dr. Kenneth MD, PGY 2 Documentation for date of: 05/15/24 Event Note Event Note: Rapid response at 9:30 AM called for large-volume dark red blood from rectum. At bedside, patient less responsive to questions, BP 120/54, and heart rate 103, on room air while undergoing transfusion of fourth unit of PRBC. Ordered 2 L of LR boluses, 2 additional units PRBC/1 unit FFP/1 unit platelets, 10 mg vitamin K, 1 amp of bicarb, lactate, BMP (to monitor bicarb). Dr. Liu called immediately and informed of situation and stated that he will prepare for endoscopy STEPHIE. ICU was consulted and informed of situation as well as background information and accept the patient to be transferred to ICU for further management. Patient already on octreotide drip, pantoprazole increased from 40 to 80 mg IV twice daily, and ceftriaxone. Labs showed hemoglobin 6.0 (down from 6.9 after 4 units PRBC), bicarb 12, lactate 11.8 from 9.0. EGD attempted but was unsuccessful as patient was biting down and decision made to intubate patient in order to reattempt EGD. ----- Plan discussed with attending physician Dr. Sullivan and senior resident physician Dr. Kenneth Simons MD PGY-1 Internal Medicine
[2024-05-15] MEDS: LORazepam 2 MG/ML VIAL IVP (12:25)
[2024-05-15] MEDS: fentaNYL CIT INJ 50 mCg/ML AMP 2ML IV (12:25)
[2024-05-15] MEDS: ROCURONIUM INJ 10 MG/ML VIAL 10 ML 70 MG IV (12:25)
[2024-05-15] MEDS: DEXMEDETOMIDINE 200 MCG IVPB 200 MCG/50 ML BOTTLE IV ×2 (12:36→21:08)
[2024-05-15 12:40] LABS: Reflex Lactate? Y
--- NOTE | 2024-05-15 12:45 | PD.RESPRO ---
Documentation for date of: 05/15/24 Subjective Subjective Interval history: Benjamin Villarreal is a 59-year-old male with PMHX of alcohol use disorder, esophageal varices s/p banding, hypertension, hyperlipidemia, DM2, HFpEF (EF 55 to 60%) and biliary dyskinesia who was admitted 05/15 after coming to ED with complaints of black starry stools and witnessed bloody emesis. Upon night resident evaluation, unable to provide history and was only oriented to self and followed simple commands only. Per chart review, patient had been having black starry stools for 4 days and was hypoxic when EMS evaluated patient. Stated that he has not drank alcohol for the past 15 days. Of note, he was recently discharged from hospital after coming with similar complaints and underwent EGD that revealed grade 3 esophageal varices which were banded and ligated. 05/15: Seen and examined at bedside in telemetry and immediately upon evaluation medical team was notified by nursing staff of large volume dark black stools. At this time, rapid response was called and ICU was eventually consulted, and patient was upgraded for further management. See event note for details. Exam Vital Signs Temp Pulse Resp BP Pulse Ox O2 Del Method O2 Flow Rate 97.2 F 119 H 20 180/76 H 100 Nasal Cannula 3 05/15/24 11:42 05/15/24 12:40 05/15/24 12:25 05/15/24 12:40 05/15/24 12:40 05/15/24 08:00 05/15/24 12:25 Narrative Exam General: confused, somnolent, answering simple questions, laying in bed HEENT: scleral icterus Cardiovascular: tachycardic, S1/S2 present, no murmurs appreciated Pulmonary: clear to auscultation Abdominal: distended, firm Skin: jaundiced Neuro: somnolent and confused but answered some questions Objective Labs 05/16/24 13:34 05/16/24 07:52 Labs: Laboratory Results - last 24 hr 05/14/24 05/14/24 05/14/24 21:38 21:45 21:46 WBC 26.7 H RBC 2.19 L Hgb 5.8 L* Hct 18.0 L* MCV 82 MCH 26.5 MCHC 32.2 RDW Std Deviation 64.4 H Plt Count 236 D Neut % (Auto) 76 Lymph % (Auto) 5 L [place] % (Auto) 11 Eos % (Auto) 0 Baso % (Auto) 0 Neut # (Auto) 20.1 H Lymph # (Auto) 1.3 [place] # (Auto) 2.9 H Eos # (Auto) 0.1 Baso # (Auto) 0.0 Immature Gran # (Auto) 2.27 H Absolute Nucleated RBC 0.02 H Immature Gran % 9 H Nucleated RBC % 0 PT 19.3 H INR 1.8 H APTT 44.4 H D Puncture Site ABG pH ABG pCO2 ABG pO2 ABG HCO3 ABG O2 Saturation ABG Base Excess Oxygen Liter Flow Sodium 140 Potassium 3.8 Chloride 109 H Carbon Dioxide 10.3 L* Anion Gap 21 H BUN 62 H Creatinine 2.6 H Estim Creat Clear Calc 26.6 L eGFR 28 L BUN/Creatinine Ratio 24 H Glucose 155 H Calculated Osmolality 300 H Lactic Acid 10.3 H* Calcium 8.7 Corrected Calcium 10.3 H Magnesium Total Bilirubin 23.0 H* AST 76 H ALT 84 H Alkaline Phosphatase 152 H Ammonia 142 H* Total Protein 4.4 L Albumin 2.0 L Globulin 2.4 Albumin/Globulin Ratio 0.8 L Procalcitonin 1.12 H Ur Collection Type Urine Color Urine Clarity Urine pH Ur Specific [place] Urine Protein Urine Glucose (UA) Urine Ketones Urine Blood Urine Nitrite Urine Bilirubin Urine Urobilinogen (Auto) Ur Leukocyte Esterase Urine RBC Urine WBC Ur Squamous Epith Cells Urine Bacteria Hyaline Casts Stool Occult Blood Positive A Urine Opiates Screen Urine Fentanyl Screen Ur Barbiturates Screen U Amphetamin/Meth Scrn U Benzodiazepines Scrn U Cocaine Metab Screen U Marijuana (THC) Screen Ethyl Alcohol Blood Type O Positive Antibody Screen NEGATIVE Crossmatch See Detail Blood Bank Wristband ID Yes Blood Bank Comment PLATP Ready 05/15/24 05/15/24 05/15/24 02:23 04:45 04:58 WBC 20.4 H D RBC 2.57 L Hgb 7.1 L D Hct 21.1 L* MCV 82 MCH 27.6 MCHC 33.6 RDW Std Deviation 56.1 H Plt Count 111 L D Neut % (Auto) 76 Lymph % (Auto) 4 L [place] % (Auto) 9 Eos % (Auto) 0 Baso % (Auto) 0 Neut # (Auto) 15.4 H Lymph # (Auto) 0.9 L [place] # (Auto) 1.8 H Eos # (Auto) 0.0 Baso # (Auto) 0.1 Immature Gran # (Auto) 2.22 H Absolute Nucleated RBC 0.03 H Immature Gran % 11 H Nucleated RBC % 0 PT INR APTT Puncture Site ABG pH ABG pCO2 ABG pO2 ABG HCO3 ABG O2 Saturation ABG Base Excess Oxygen Liter Flow Sodium 139 Potassium 4.5 D Chloride 106 Carbon Dioxide 10.3 L* Anion Gap 23 H BUN 69 H Creatinine 2.8 H Estim Creat Clear Calc 24.7 L eGFR 25 L BUN/Creatinine Ratio 25 H Glucose 144 H Calculated Osmolality 300 H Lactic Acid 8.5 H* Calcium 8.6 Corrected Calcium 9.6 Magnesium 2.3 Total Bilirubin 19.7 H* D AST 127 H ALT 80 H Alkaline Phosphatase 106 D Ammonia Total Protein 4.5 L Albumin 2.7 L D Globulin 1.8 L Albumin/Globulin Ratio 1.5 Procalcitonin Ur Collection Type Clean Catch Urine Color Drk-Yellow A Urine Clarity Turbid A Urine pH 6.0 Ur Specific [place] 1.019 Urine Protein 1+ A Urine Glucose (UA) Trace Urine Ketones Negative Urine Blood Trace Urine Nitrite Negative Urine Bilirubin 2+ A Urine Urobilinogen (Auto) Negative Ur Leukocyte Esterase Negative Urine RBC 4 H Urine WBC 14 H Ur Squamous Epith Cells 5 Urine Bacteria None Hyaline Casts < 1 Stool Occult Blood Urine Opiates Screen Negative Urine Fentanyl Screen Negative Ur Barbiturates Screen Negative U Amphetamin/Meth Scrn Negative U Benzodiazepines Scrn Negative U Cocaine Metab Screen Negative U Marijuana (THC) Screen Negative Ethyl Alcohol < 3.0 Blood Type Antibody Screen Crossmatch Blood Bank Wristband ID Blood Bank Comment 05/15/24 05/15/24 05/15/24 06:04 08:12 08:45 WBC 21.7 H RBC 2.46 L Hgb 6.9 L* Hct 20.3 L* MCV 83 MCH 28.0 MCHC 34.0 RDW Std Deviation 56.0 H Plt Count 129 L Neut % (Auto) 74 Lymph % (Auto) 5 L [place] % (Auto) 10 Eos % (Auto) 0 Baso % (Auto) 0 Neut # (Auto) 16.0 H Lymph # (Auto) 1.1 [place] # (Auto) 2.2 H Eos # (Auto) 0.1 Baso # (Auto) 0.1 Immature Gran # (Auto) 2.31 H Absolute Nucleated RBC 0.02 H Immature Gran % 11 H Nucleated RBC % 0 PT 20.9 H INR 2.0 H APTT 52.1 H Puncture Site Left Radial ABG pH 7.31 L ABG pCO2 20 L ABG pO2 116 H ABG HCO3 10 L ABG O2 Saturation 98 ABG Base Excess -15 L Oxygen Liter Flow 1 Sodium Potassium Chloride Carbon Dioxide Anion Gap BUN Creatinine Estim Creat Clear Calc eGFR BUN/Creatinine Ratio Glucose Calculated Osmolality Lactic Acid 9.0 H* Calcium Corrected Calcium Magnesium Total Bilirubin AST ALT Alkaline Phosphatase Ammonia Total Protein Albumin Globulin Albumin/Globulin Ratio Procalcitonin Ur Collection Type Urine Color Urine Clarity Urine pH Ur Specific [place] Urine Protein Urine Glucose (UA) Urine Ketones Urine Blood Urine Nitrite Urine Bilirubin Urine Urobilinogen (Auto) Ur Leukocyte Esterase Urine RBC Urine WBC Ur Squamous Epith Cells Urine Bacteria Hyaline Casts Stool Occult Blood Urine Opiates Screen Urine Fentanyl Screen Ur Barbiturates Screen U Amphetamin/Meth Scrn U Benzodiazepines Scrn U Cocaine Metab Screen U Marijuana (THC) Screen Ethyl Alcohol Blood Type Antibody Screen Crossmatch Blood Bank Wristband ID Blood Bank Comment 05/15/24 09:31 WBC RBC Hgb 6.0 L* Hct 17.9 L* MCV MCH MCHC RDW Std Deviation Plt Count Neut % (Auto) Lymph % (Auto) [place] % (Auto) Eos % (Auto) Baso % (Auto) Neut # (Auto) Lymph # (Auto) [place] # (Auto) Eos # (Auto) Baso # (Auto) Immature Gran # (Auto) Absolute Nucleated RBC Immature Gran % Nucleated RBC % PT 22.6 H INR 2.2 H APTT Puncture Site ABG pH ABG pCO2 ABG pO2 ABG HCO3 ABG O2 Saturation ABG Base Excess Oxygen Liter Flow Sodium 142 Potassium 4.5 Chloride 107 Carbon Dioxide 12.1 L* Anion Gap 23 H BUN 62 H Creatinine 2.4 H Estim Creat Clear Calc 30.8 L eGFR 30 L BUN/Creatinine Ratio 26 H Glucose 126 H Calculated Osmolality 302 H Lactic Acid 11.8 H* Calcium 8.2 L Corrected Calcium Magnesium Total Bilirubin AST ALT Alkaline Phosphatase Ammonia Total Protein Albumin Globulin Albumin/Globulin Ratio Procalcitonin Ur Collection Type Urine Color Urine Clarity Urine pH Ur Specific [place] Urine Protein Urine Glucose (UA) Urine Ketones Urine Blood Urine Nitrite Urine Bilirubin Urine Urobilinogen (Auto) Ur Leukocyte Esterase Urine RBC Urine WBC Ur Squamous Epith Cells Urine Bacteria Hyaline Casts Stool Occult Blood Urine Opiates Screen Urine Fentanyl Screen Ur Barbiturates Screen U Amphetamin/Meth Scrn U Benzodiazepines Scrn U Cocaine Metab Screen U Marijuana (THC) Screen Ethyl Alcohol Blood Type Antibody Screen Crossmatch Blood Bank Wristband ID Blood Bank Comment ABG Interpretation ABG results: 05/15/24 08:45 ABG pH 7.31 L ABG pCO2 20 L ABG pO2 116 H ABG HCO3 10 L ABG O2 Saturation 98 ABG Base Excess -15 L Quality Measures Quality Measures VTE prophylaxis (SCDs) Assessment & Plan Assessment Current Active Medications: Generic Name Dose Route Start Last Admin Trade Name Freq PRN Reason Stop Dose Admin Acetaminophen 650 mg 05/15/24 01:17 Acetaminophen Supp 650 Mg Supp IA 06/14/24 01:16 Q6HR PRN pain and Fever > 100.4 Dextrose 25 ml 05/15/24 01:22 Dextrose 50%-Water Inj 50 Ml Syringe IV 06/14/24 01:21 Q15MIN PRN BG 50-70 responsive npo pt Dextrose 50 ml 05/15/24 01:22 Dextrose 50%-Water Inj 50 Ml Syringe IV 06/14/24 01:21 Q15MIN PRN BG <50 OR BG <70 & pt unresponsive Glucagon 1 mg 05/15/24 01:22 Glucagon Inj 1 Mg Vial IM Q15MIN PRN BG <70, and no IV access Octreotide Acetate 1,000 mcg/ 102 mls @ 5.1 mls/hr 05/15/24 18:30 Sodium Chloride IV 05/19/24 22:22 .Q20H SREE Protocol 50 MCG/HR Octreotide Acetate 1,000 mcg/ 102 mls @ 5.1 mls/hr 05/14/24 22:30 05/14/24 22:31 Sodium Chloride IV 05/15/24 18:29 50 mcg/hr .Q20H SREE 5.1 mls/hr Administration Protocol 50 MCG/HR Albumin Human 25 gm in 100 mls @ 100 mls/hr 05/15/24 07:49 05/15/24 08:42 Albuminar-25 Ivpb IV 05/18/24 07:48 100 mls/hr QDAY SREE Administration Piperacillin/Tazobactam/Dextrose 3.375 gm in 50 mls @ 12.5 mls/hr 05/15/24 14:00 Zosyn IV 05/22/24 13:59 Q8HR SREE Protocol Dexmedetomidine/Sodium Chloride 200 mcg in 50 mls @ 3.763 mls/hr 05/15/24 12:26 05/15/24 12:36 Precedex Ivpb IV 06/14/24 12:25 0.2 mcg/kg/hr .[id number] PRN 3.763 mls/hr Per PROTOCOL Administration Protocol 0.2 MCG/KG/HR Insulin Human Lispro 0 unit 05/15/24 06:00 05/15/24 05:58 Insulin Lispro (Admelog) 1 Unit/0.01 Ml Unit SC 06/14/24 05:59 Not Given Q6HR [facility] Protocol Lactulose 20 gm 05/15/24 08:00 05/15/24 08:42 Lactulose Syrup 20 Gm/30 Ml Udc IA 06/14/24 07:59 20 gm TID SREE Administration Protocol Ondansetron HCl 4 mg 05/15/24 01:17 05/15/24 05:46 Ondansetron Inj 2 Mg/Ml Inj 2 Ml IV 06/14/24 01:16 4 mg Q6H PRN Administration NAUSEA OR VOMITING Protocol Pantoprazole Sodium 80 mg 05/15/24 21:00 Pantoprazole Inj 40 Mg Vial IVP 06/14/24 20:59 BID [facility] Plan Benjamin Villarreal 59-year-old male with past medical history of alcohol use disorder, esophageal varices s/p banding, hypertension, hyperlipidemia, DM2, HFpEF (EF 55 to 60%) and biliary dyskinesia was admitted to the hospital on 05/15/2024 due to acute blood loss anemia in the setting of GI bleed as well as acute metabolic encephalopathy most likely in the setting of cirrhosis with hyperammonemia. #Acute blood loss anemia #GI bleed #Hx of Grade 3 esophageal varices s/p banded #Hx of alcohol use disorder Came in with complaints of black starry stools and bloody emesis witnessed in the ED. Initial hemoglobin was 5.8 and given 3 units pRBC and only improved to 7.1. Repeat after showed 6.9 from morning labs and started transfusing another unit of pRBC. At this point, patient was evaluated and rapid response was called. 2 L of LR IVF boluses were ordered, 2 units PRBC/1 unit FFP/1 unit platelets were also ordered for resuscitation. Dr. Liu was called immediately and informed of patient's clinical status and he came soon as possible to perform EGD. However, he was unable to and decision was made to intubate and mechanically ventilated. ? Continue octreotide drip (05/14/2024-) ? Protonix increased from 40 mg to 80 mg IV twice daily ? IV Rocephin 1 g daily (05/14-) ? Bleeding precautions ? GI consulted, appreciate recommendations #Acute metabolic encephalopathy #Cirrhosis #Coagulopathy #Hyperbilirubinemia #Hyperammonemia #Ascites #Leukocytosis #SBP? A&Ox1 (only to person) likely due to hyperammonemia in the setting of cirrhosis. Initial MELD NA score of 34 point indicating 65-66% mortality, Child-Garcia score of 13 points (Class C). AST 76, ALT 84, ALP 152, ammonia 142, T bilirubin 23. INR 1.8 and PT 19.3. ? Octreotide and protonix as above ? IV Rocephin 1 g daily (05/14-) ? Lactulose started ? Will continue to monitor #JEANIE #Hypoalbuminemia Initial creatinine of 2.6 and BUN of 62 compared to baseline of ~1. Likely prerenal in setting of acute blood loss anemia. Albumin 75 g x 1, received 4 units PRBC/1 unit FFP/1 unit platelet, and ordered 2 L LR IVF boluses. ? Avoid nephrotoxic agents and renally dose medication #Anion gap metabolic acidosis #Lactic acidosis ALICIA banks secondary to lactic acidosis in setting of acute blood loss anemia. Lactate uptrended and peaked at 11 and will continue to trend. ? Follow-up lactate #HFpEF (55-60%) Does not appear fluid overloaded. Previous echo showed EF 55-60%. #DM2 A1c 6.7% on 04/2024 ? SSI ? Hypoglycemia protocol ordered Hospital management: Disposition: upgraded to ICU for large volume UGIB likely secondary to varices Diet: NPO GI prophylaxis: protonix 80 mg IV BID and octreotide DVT prophylaxis: SCDs Code: Full code ----- Plan discussed with attending physician Dr. Sullivan and senior resident physician Dr. Kenneth Simons MD PGY-1 Internal Medicine Attending Provider Attestation/Addendum I have examined the patient, reviewed labs and imaging findings, discussed the case with the resident(s), and reviewed entered orders. I agree with the plan of care as outlined in this note. Patient will be upgraded to ICU for further management of critically ill patient with likely active bleed as hemoglobin continues to drop despite multiple transfusions and aggressive fluid resuscitation. Terry Sullivan MD
--- NOTE | 2024-05-15 14:08 | XR_ITS ---
Exam: Chest 1 view, AP Date and time of exam: 05/15/2024, 1:40 PM Comparison: Earlier today Findings: Interval placement of ET tube with distal tip 4 cm above the vonda. NG tube unchanged in position. Increased opacification left lung base with blunting the left costophrenic angle. Upper zones are clear. No pneumothorax. No acute bony abnormality Impression: Study limited by low lung volumes. Increased opacification left lung base consistent with atelectasis versus infiltrate with possible left pleural effusion.
[2024-05-15 14:26] LABS: Lactic Acid, 3 HR 10.1 mMol/L (0.4-2.0)
[2024-05-15 14:32] LABS: Base Excess -15 (-3-3); HCO3 16 mEq/L (20-26); Inspired Oxygen, FIO2 100 %; PCO2 58 mmHg (32.0-48.0); PO2 330 mmHg (83-108)
[2024-05-15 14:33] LABS: Allen Test Not Performed; O2 Saturation 99 % (91-98); Puncture Site Right Radial
[2024-05-15 14:34] LABS: pH, Arterial 7.04 (7.35-7.45)
[2024-05-15 14:36] LABS: Basophils % (Auto) 0 % (0-2.5); Eosinophils # (Auto) 0.1 Thou/mm3 (0.0-0.5); Eosinophils % (Auto) 1 % (0-10); Hemoglobin 9.6 g/dL (13.5-16.0); Immature Granulocytes % (Auto) 12 % (0-0); Immature Granulocytes Auto 3.36 Thou/mm3 (0.00-0.00); Lymphocytes % (Auto) 7 % (10-50); Mean Corpuscular HGB Conc 33.1 g/dl (31.0-37.0); Mean Corpuscular Hemoglobin 28.8 pg (25.0-35.0); Mean Corpuscular Volume 87 fL (80-100); Monocytes % (Auto) 10 % (0-12); Neutrophils # (Auto) 20.1 Thou/mm3 (1.8-7.7); Neutrophils % (Auto) 70 % (37-80); Nucleated Red Blood Cell # 0.03 Thou/mm3 (0.00-0.00); Nucleated Red Blood Cell % 0 /100 WBC (0); Platelet Count 132 Thou/mm3 (140-440); Red Blood Count 3.33 Miln/mm3 (4.50-5.90); White Blood Count 28.5 Thou/mm3 (3.8-10.6)
[2024-05-15 14:47] LABS: Alanine Aminotransferase 112 U/L (10-49); Albumin, Serum 3.2 gm/dL (3.5-5.0); Albumin/Globulin Ratio 1.9 (1.2-2.2); Alkaline Phosphatase 108 U/L (46-116); Anion Gap 21 (7-16); Aspartate Amino Transferase 228 U/L (0-34); BUN/Creatinine Ratio 24 Ratio (12-20); Blood Urea Nitrogen 61 mg/dL (9-23); Calcium 8.6 mg/dL (8.3-10.6); Calcium (Corrected) 9.2 mg/dL (8.5-10.1); Chloride 110 mMol/L (98-107); Creatinine (Component) 2.5 mg/dL (0.6-1.3); Estimated Creatinine Clearance 29.4 mL/min (>60); Globulin 1.7 gm/dL (2.3-3.5); Glucose 131 mg/dL (74-106); Osmolality,Calculated 307 (275-295); Potassium 4.2 mMol/L (3.4-5.1); Sodium 145 mMol/L (136-145); Total Protein 4.9 gm/dL (5.7-8.2); eGFR 29 See Note
--- NOTE | 2024-05-15 14:51 | ESDS_ITS ---
Planned Discharge Date 05/15/24 DS: Providers Provider Date of admission: 05/15/24 01:17 Primary care physician: Gamal Bonilla MD Admitting Provider: Ricky Collins MD Attending Provider on Admission: Ashley Bruner MD Consults: 05/14/24 23:01 Consult to Gastroenterology Stat Comment: Upper GI bleed Consulting Provider: Bolivar Calabrese 05/15/24 13:54 Referral - Inspection And Testing Supervisor Stat Service Needed for Transfer: Gastroenterology Addl Comments:: Patient needs TIPS Attending Provider on DC: Gabrielle Ardon MD Discharging Provider: Gabrielle Ardon MD DS: Diagnosis Problem List Completed Was Problem List Reviewed/Reconciled?: Yes Hospital Course Hospital Course Hospital course: per HPI : 59-year-old male with past medical history of alcohol use disorder, esophageal varices s/p banding, hypertension, hyperlipidemia, DM2, HFpEF (EF 55 to 60%) and biliary dyskinesia was admitted to the hospital on 05/15/2024 after coming to the ED with complaints of black starry stools and a witnessed bloody emesis. Upon my assessment patient was only able x 1 only to his name. He was unable to provide any history of what events led him to come to the hospital. He was only able to follow some simple commands, but cannot respond to complex questions about history. Most of the history was taken per chart review as patient unable to provide history and tried contacting family, but was unsuccessful. Per chart review patient had been having black starry stools for 4 days and was hypoxic when EMS evaluated the patient. Patient stated that he has not drink alcohol for the past 15 days, but most likely 1 time has passed as he was in the hospital recently for multiple days. At the time of assessment patient's blood pressure was on the lower end, but maintaining a MAP above 65. Patient noted to have an JEANIE likely in the setting of acute blood loss anemia. Patient also had some lactic acidosis along with hyperammonemia. Patient did n ot have any active bleeding during assessment and there was only some dried blood around patient's mouth and on his chest mostly from the bloody emesis episode he had in the ED. 05/15/24: There were 2 rapid responses this morning for large bloody bowel movement. His hemoglobin in was 5.8 and he received 4 units of PRBC , the repeat hb is 6, we willl give him additional 3 Units of PRBC. he received 1 units of prbc and 1Unit of FFP . we will give him 1 gm of calcium carbonate. Dr calabrese is planning to do EGD today around 11 am, he came to evulate the patient, he could not pass the EGD probe because his jaw was clenched and was difficult to open his mount , so decision was made to intubate him . 2 mg of ativa, rocurium and fentanyl was used .started him on albumin of possible HRS . and will monitor his kidney function . Dr calabrese did EGD which showed diffuse blood oozing from everywhere and he could not clipped it, this patient will need TIPS and transfer to higher center. #Hepatic Encephalopathy - Head CT Negative -Ammonia on admission was 142 -Lactulose currently on hold in the setting of active bleed per rectum and NG tube. -Intubated and mechanically ventilated -On Precedex drip with RASS score of 0 -Intubated and MV -Vent setting- A/CMV VC , VT- 450, flow -70, rr- 30 ,PPEP-5 #class 3 hemorrhagic shock -Class III hemorrhage involves a 30 to 40 percent blood volume loss, resulting in a significant drop in blood pressure and changes in mental status -he has received till now 7 units of prbc , blood pressure mildly dropping down, with tachycardia around 110 -we will continue to monitor and give blood products untill he gets TIPS . #history of HTN #History of HLD #HFpEF (55-60%) ? Doesn't look fluid overloaded - Echo showed EF 55-60% #Acute blood loss anemia #GI bleed #Hx of Grade 3 esophageal varices s/p banded (04/28) #Hx of alcohol use disorder ?Patient came in with complaints of black starry stools and bloody emesis witnessed in the ED ? Initial hemoglobin was 5.8 - EGD done during on 04/28/2024 showed grade 3 esophageal varices which were band ed as well as erythematous mucosa in the stomach. -FOBT positive -patient received 5 U prbc , 1 U of FFP and 1U of platelets till now -Dr. Calabrese scoped the patient and showed 1+ esophageal varices and bleeding were going everywhere and was not large enough for band ligation , and the band attenp failed ,and he will need transfer for TIPS shunt. -will continue octeotride and blood products and transfer the patient to higher center . #Cirrhosis #Coagulopathy #Hyperbilirubinemia #Hyperammonemia #Ascites #Leukocytosis #SBP? - Patient A/Ox1 (only to person)on admission , likely due to hyperammonemia in the setting of cirrhosis - MELD NA score of 34 point indicating 65-66% mortality - Initial Child-Garcia score of 13 points, Class C - Liver function is AST 76, ALT 84, alkaline phosphatase 152, ammonia 142, T bilirubin 23 - INR 2.2 and PT 22.6 - Continue octreotide drip [05/14/2024?] ?Continue Protonix -Continue Zosyn -Patient will need TIPS shunt and we will transfer the pt to higher center #JEANIE #Hypoalbuminemia #?Hepato renal syndrome - Initial creatinine of 2.6 and BUN of 62 compared to patient's baseline which is currently around 1 -Albumin 2 -Most likely prerenal in the setting of GI bleed versus due to hepatorenal syndrome -Albumin 75 g x 1, will follow 25% albumin:?IV:?Initial: 1 g/kg daily for 2 days (maximum: 100 g/day), followed by 20 to 50 g daily until clinical outcome is achieved -Patient is getting massive blood transfusion and received 4 units of LR -Sanchez in place -Avoid nephrotoxic agents -Renally dose medication -Will continue to monitor #High anion gap metabolic acidosis #Lactic acidosis -Patient has HAGMA likley secondary to lactic acidosis likely due to inability to clear lactic acid -He has high anion gap metabolic acidosis with secondary respiratory alkalosis -delta gap was 1.04 -Will trend lactic acid -Will follow up on Abg #DM2 -A1c 6.7% on 04/2024 -ISS - Hypoglycemia protocol ordered Case Discussed With my attending Dr Bruner, Gabrielle Ardon MD,PGY-3 Time Spent with Patient Time attestation: Total time spent providing and/or coordinating discharge services:>30 min Exam Vital Signs Temp Pulse Resp BP Pulse Ox O2 Del Method O2 Flow Rate 97.2 F 98 15 115/56 L 99 Nasal Cannula 3 05/15/24 13:40 05/15/24 14:25 05/15/24 13:40 05/15/24 14:25 05/15/24 14:25 05/15/24 08:00 05/15/24 12:25 FiO2 80 05/15/24 14:25 Narrative Exam GENERAL:Severly icteric Ill looking man,Currently intubated and MV HEENT: Normocephalic, atraumatic. Pupils are equal and reactive. icteric sclera, teeth loose with dryed blood in mucosa. NECK: Supple, nontender, no JVD CARDIOVASCULAR: Heart regular rhythm & rate. S1/S2. no murmur or gallop rub or extra beats. LUNGS: Clear to auscultation bilaterally with symmetrical chest rise. No laboring tachypnea or wheezing. No intercostal subcostal retraction. No rales and no rhonchi. ABDOMEN: Distended Active and normal bowel sounds. EXTREMITIES/skin : Icteric , smill necrotic area around right big toe NEURO: Intubated and MV PSYCHIATRIC: Intubated and MV Discharge Plan Plan Patient condition on transfer: Stable Prescriptions/Referrals Prescriptions/Med Rec: No Action No Known Home Medications thiamine HCl (vitamin B1) 100 mg tablet 100 mg PO QDAY Qty: 30 0RF folic acid 1 mg tablet 1 mg PO QDAY Qty: 30 0RF pantoprazole 40 mg tablet,delayed release (DR/EC) 40 mg PO QDAY Qty: 30 0RF multivitamin [Daily Multi-Vitamin] Tablet 1 tab PO QDAY Qty: 30 0RF Referrals: Gamal Bonilla MD [Primary Care Provider] - Patient/Caregiver Discharge Instructions Print Language: Kyrgyz Quality Discharge Quality Measures none
--- NOTE | 2024-05-15 14:51 | PC.CC ---
1354: received transfer order during 1400 huddle. 14:50: packet sent to [facility]
[2024-05-15 14:57] LABS: D-Dimer 1050 ng/mL (<600)
[2024-05-15 15:06] LABS: Bilirubin,Total 20.3 mg/dL (0.3-1.2); Carbon Dioxide 13.8 mMol/L (20.0-31.0)
--- NOTE | 2024-05-15 15:07 | PC.CC ---
Addendum entered by Sendy Negro RN 05/15/24 17:29: 17:02 faxed chart to [facility] 17:11 Spoke to Leigh gave updated VS, she will present to the team 17:04 faxed to [place], 17:22 Spoke to Wil, gave updated info they will begin to look at this case. Addendum entered by Sendy Negro RN 05/15/24 15:42: [facility] called back decline due to capacity. Addendum entered by Sendy Negro RN 05/15/24 15:20: 15:14 Spoke to [facility] they will review Original Note: 15:07- Images pushed to [facility]
[2024-05-15] MEDS: PIPER/TAZO 3.375 GM PREMIX 3.375 GM/50 ML BAG IV ×2 (15:09→21:29)
[2024-05-15 15:47] LABS: Partial Thromboplastin Time 51.8 Seconds (22.0-36.0); Prothrombin Time 20.9 Seconds (9.0-12.2)
[2024-05-15 15:52] LABS: Fibrinogen 87 mg/dL (175-375)
[2024-05-15 16:16] LABS: Base Excess -13 (-3-3); HCO3 14 mEq/L (20-26); Inspired Oxygen, FIO2 45 %; O2 Saturation 89 % (91-98); PCO2 35 mmHg (32.0-48.0); PO2 63 mmHg (83-108); pH, Arterial 7.22 (7.35-7.45)
[2024-05-15 16:21] LABS: Allen Test Performed/OK; Puncture Site Left Radial
--- NOTE | 2024-05-15 17:40 | PD.INTPROC ---
Procedures Procedure Date / Time 05/15/24 7850 Intubation Indication(s): inability to protect airway Informed consent obtained: procedure done urgently Time out done, and the following verified: correct patient, side and site, procedure and patient position Sedative: fentanyl Mg given: 50 Sedative #2: other (ativan) Mg Given (sedative #2): 2 Paralytic: rocuronium Mg given: 70 Laryngoscope: fiber optic video scope ET tube size: 7.5 ET tube uncuffed: No Tube secured depth (cm): 24 Tube secured location: teeth Tube placement confirmation: visualized tube passing through cords, equal breath sounds bilaterally, no breath sounds over epigastrium and confirmation by capnometry Patient tolerated procedure: well and no complications EBL(ml): 0 Intubation complications: none
--- NOTE | 2024-05-15 17:41 | PC.CM ---
Addendum entered by Lashawn Padilla RN 05/15/24 19:00: [facility] and Joshua are still reviewing patient. Packet started and left on transfer nurses desk. Original Note: I received a call from Shalini with [facility]. She asked when patient last had a drink and wanted more labs. I provided her with the information. Shalini states they will present patient to their hepatology department and she will get back to me. She states if they accept patient they will need authorization from patient's insurance.
[2024-05-15] MEDS: OCTREOTIDE ACET INJ 1,000 MCG in SODIUM CHLORIDE 0.9% 100 ML 5.1 MCG IV (17:45)
[2024-05-15] MEDS: VANCOMYCIN/NS 1 GM IVPB 200 ML IV (17:51)
[2024-05-15 18:08] LABS: Lactic Acid, 3 HR 10.2 mMol/L (0.4-2.0)
[2024-05-15 18:09] LABS: Hematocrit 33.2 % (41.0-53.0); Hemoglobin 11.3 g/dL (13.5-16.0)
[2024-05-15 19:14] LABS: Base Excess -13 (-3-3); HCO3 12 mEq/L (20-26); Inspired Oxygen, FIO2 45 %; O2 Saturation 96 % (91-98); PCO2 27 mmHg (32.0-48.0); PO2 85 mmHg (83-108); pH, Arterial 7.27 (7.35-7.45)
[2024-05-15 19:15] LABS: Allen Test Performed/OK; Puncture Site Right Radial
[2024-05-15] MEDS: PANTOPRAZOLE INJ 40 MG VIAL 80 MG IVP (20:14)
[2024-05-15] MEDS: Norepinephrine/D5W 8mg/250ml 8 MG/250 ML BAG 6.966 MG IV (20:27)
[2024-05-16] VITALS (136 sets, daily range): BP systolic 73–201; BP diastolic 44–110; PULSE 62–111; RESP 9–37; TEMP 35.9–37; O2SAT 95–100; BMI 27.3
[2024-05-16 00:39] LABS: Hematocrit 25.5 % (41.0-53.0)
[2024-05-16 00:40] LABS: Hemoglobin 8.5 g/dL (13.5-16.0)
[2024-05-16] MEDS: Norepinephrine/D5W 8mg/250ml 8 MG/250 ML BAG 36.221 MG IV (03:35)
[2024-05-16 04:12] LABS: Allen Test Performed/OK; Base Excess 11 (-3-3); HCO3 37 mEq/L (20-26); Inspired Oxygen, FIO2 45 %; O2 Saturation 101 % (91-98); PCO2 56 mmHg (32.0-48.0); PO2 160 mmHg (83-108); Puncture Site Right Radial; pH, Arterial 7.43 (7.35-7.45)
[2024-05-16] MEDS: PIPER/TAZO 3.375 GM PREMIX 3.375 GM/50 ML BAG IV ×3 (05:00→21:34)
[2024-05-16 05:25] LABS: Base Excess -5 (-3-3); HCO3 17 mEq/L (20-26); Inspired Oxygen, FIO2 45 %; O2 Saturation 100 % (91-98); PCO2 23 mmHg (32.0-48.0); PO2 191 mmHg (83-108); pH, Arterial 7.48 (7.35-7.45)
[2024-05-16 05:29] LABS: Allen Test Performed/OK; Puncture Site Right Radial
[2024-05-16] MEDS: DEXMEDETOMIDINE 200 MCG IVPB 200 MCG/50 ML BOTTLE IV (06:03)
[2024-05-16] MEDS: INSULIN LISPRO (AdmeLOG) 1 UNIT/0.01 ML UNIT SC (06:06)
[2024-05-16 08:04] LABS: Basophils # (Auto) 0.1 Thou/mm3 (0.0-0.2); Basophils % (Auto) 1 % (0-2.5); Eosinophils # (Auto) 0.1 Thou/mm3 (0.0-0.5); Eosinophils % (Auto) 1 % (0-10); Hematocrit 27.7 % (41.0-53.0); Immature Granulocytes % (Auto) 8 % (0-0); Immature Granulocytes Auto 1.36 Thou/mm3 (0.00-0.00); Lymphocytes # (Auto) 1.3 Thou/mm3 (1.0-4.8); Lymphocytes % (Auto) 7 % (10-50); Mean Corpuscular HGB Conc 36.1 g/dl (31.0-37.0); Mean Corpuscular Volume 80 fL (80-100); Monocytes # (Auto) 1.5 Thou/mm3 (0.0-0.8); Monocytes % (Auto) 9 % (0-12); Neutrophils % (Auto) 75 % (37-80); Nucleated Red Blood Cell # 0.05 Thou/mm3 (0.00-0.00); Nucleated Red Blood Cell % 0 /100 WBC (0); Platelet Count 82 Thou/mm3 (140-440); RDW Standard Deviation 45.7 fL (35.1-43.9); Red Blood Count 3.45 Miln/mm3 (4.50-5.90); White Blood Count 17.3 Thou/mm3 (3.8-10.6)
[2024-05-16 08:13] LABS: Lactate (Lactic Acid) 5.3 mMol/L (0.4-2.0)
[2024-05-16 08:30] LABS: Fibrinogen 106 mg/dL (175-375); Partial Thromboplastin Time 40.9 Seconds (22.0-36.0); Prothrombin Time 21.1 Seconds (9.0-12.2)
[2024-05-16] MEDS: ALBUMIN HUMAN 25% IVPB 25 GM/100 ML BTL IV (08:34)
[2024-05-16] MEDS: PANTOPRAZOLE INJ 40 MG VIAL 80 MG IVP ×2 (08:34→21:34)
[2024-05-16 08:35] LABS: Alanine Aminotransferase 229 U/L (10-49); Albumin, Serum 2.8 gm/dL (3.5-5.0); Albumin/Globulin Ratio 1.6 (1.2-2.2); Alkaline Phosphatase 106 U/L (46-116); Anion Gap 18 (7-16); Aspartate Amino Transferase 490 U/L (0-34); BUN/Creatinine Ratio 28 Ratio (12-20); Blood Urea Nitrogen 74 mg/dL (9-23); Calcium 8.3 mg/dL (8.3-10.6); Calcium (Corrected) 9.3 mg/dL (8.5-10.1); Carbon Dioxide 17.7 mMol/L (20.0-31.0); Chloride 109 mMol/L (98-107); Creatinine (Component) 2.6 mg/dL (0.6-1.3); Estimated Creatinine Clearance 28.2 mL/min (>60); Globulin 1.8 gm/dL (2.3-3.5); Glucose 165 mg/dL (74-106); Magnesium 2.2 mg/dL (1.6-2.6); Osmolality,Calculated 314 (275-295); Phosphorous 6.4 mg/dL (2.4-5.1); Potassium 3.4 mMol/L (3.4-5.1); Sodium 145 mMol/L (136-145); Total Protein 4.6 gm/dL (5.7-8.2); eGFR 28 See Note
[2024-05-16 08:37] LABS: Bilirubin,Total 23.6 mg/dL (0.3-1.2)
[2024-05-16 08:43] LABS: D-Dimer 921 ng/mL (<600)
--- NOTE | 2024-05-16 08:50 | PC.CM ---
Addendum entered by Lashawn Padilla RN 05/16/24 16:22: 1600 [facility] called to let me know they declined patient due to the fact he was not a candidate for TIPS. I let them know patients transfer request was canceled earlier today. 1300 I spoke to ICU doctor and patient's transfer has been canceled. Addendum entered by Lashawn Padilla RN 05/16/24 09:05: 0900 I spoke to [facility] Mario. He states Dr. Corey spoke to our doctor this morning and patient has been declined for transfer due to the fact patient is not a candidate for a liver transplant due to the fact he is still drinking. Patient would need to be sober for 6 months before he would be eligible for liver transplant. Patient also is not a candidate for a TIPS due to the fact his Meld score is too high. I spoke to Bassam nurse and I gave him the information. I let him know that [facility] is stil reviewing patient at this time. Original Note: 030 I called and spoke to [facility] to follow up on transfer request. I spoke to Sanjeev and she states she will be reaching out to their icicle machine operator Dr. Regalado. She also verified the numbers to all are doctors. Sanjeev states she will get back to me once the nurse reaches out to their doctor.
--- NOTE | 2024-05-16 09:45 | ESPR_ITS ---
Documentation for date of: 05/16/24 Subjective Subjective Interval history: This is a 59yo M admitted to the ICU for GIB and hepatic encephalopathy requiring intubation for airway protection. He has a h/o ETOH cirrhosis and esophageal varices s/p banding last month. He presented with active bleed and was seen by GI. EGD was done and showed diffuse oozing from the stomach with no clear ulcer and no obvious bleed from varices. He has been transfused multiple units of PRBCs, FFP, PLT and given lts of IVF. Overnight he became hypotensive despite adequate fluid resucitation and was started on levophed. Overnight continued with good UOP and had a drop in his Hb. This morning he remains unresponsive. Critical Care Note Critical care time (min.): 50 Exam Vital Signs Temp Pulse Resp BP Pulse Ox O2 Del Method O2 Flow Rate 98.6 F 90 35 H 153/71 H 97 Mechanical Ventilation 3 05/16/24 07:30 05/16/24 07:30 05/16/24 07:30 05/16/24 07:30 05/16/24 07:30 05/16/24 04:00 05/16/24 03:05 FiO2 45 05/16/24 06:13 Narrative Exam Gen- intubated, min sedation with precedex, jaundice, nl body habitus, GCS 3T HEENT- NC/AT, mucosa dry with dried blood in the oropharynx, poor dentition, ETT in place, NGT in place with dark blood to LIS, sclera icteric, pupils small but reactive Chest- diminished lung tello, no wheeze, HRRR, no increase in WOB Abd- distended, soft, nontender, bowel sounds diminished, no rebound, no guarding Ext- edema, jaundice, pulses palp, no mottling, no clubbing, no withdrawal to painful stimuli Vent AC VC drips levo octreotide Physical Exam Completion Physical Exam Complete?: Yes 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 Layout Designer Labs 05/17/24 07:41 05/17/24 05:29 Labs: Laboratory Results - last 24 hr 05/14/24 05/15/24 05/15/24 21:46 09:31 14:03 WBC 28.5 H D RBC 3.33 L Hgb 6.0 L* 9.6 L D Hct 17.9 L* 29.0 L D MCV 87 MCH 28.8 MCHC 33.1 RDW Std Deviation 55.0 H Plt Count 132 L Neut % (Auto) 70 Lymph % (Auto) 7 L [place] % (Auto) 10 Eos % (Auto) 1 Baso % (Auto) 0 Neut # (Auto) 20.1 H Lymph # (Auto) 2.0 [place] # (Auto) 3.0 H Eos # (Auto) 0.1 Baso # (Auto) 0.0 Immature Gran # (Auto) 3.36 H Absolute Nucleated RBC 0.03 H Immature Gran % 12 H Nucleated RBC % 0 PT 22.6 H 20.9 H INR 2.2 H 2.0 H APTT 51.8 H Fibrinogen 87 L* D-Dimer 1050 H Puncture Site ABG pH ABG pCO2 ABG pO2 ABG HCO3 ABG O2 Saturation ABG Base Excess FiO2 Sodium 142 145 Potassium 4.5 4.2 Chloride 107 110 H Carbon Dioxide 12.1 L* 13.8 L* Anion Gap 23 H 21 H BUN 62 H 61 H Creatinine 2.4 H 2.5 H Estim Creat Clear Calc 30.8 L 29.4 L eGFR 30 L 29 L BUN/Creatinine Ratio 26 H 24 H Glucose 126 H 131 H Calculated Osmolality 302 H 307 H Lactic Acid 11.8 H* 10.1 H* Calcium 8.2 L 8.6 Corrected Calcium 9.2 Phosphorus Magnesium Total Bilirubin 20.3 H* D AST 228 H ALT 112 H Alkaline Phosphatase 108 Total Protein 4.9 L Albumin 3.2 L D Globulin 1.7 L Albumin/Globulin Ratio 1.9 Blood Type O Positive Antibody Screen NEGATIVE Crossmatch See Detail Blood Bank Wristband ID Yes Blood Bank Comment PLATP Ready 05/15/24 05/15/24 05/15/24 14:25 16:08 17:55 WBC RBC Hgb 11.3 L Hct 33.2 L MCV MCH MCHC RDW Std Deviation Plt Count Neut % (Auto) Lymph % (Auto) [place] % (Auto) Eos % (Auto) Baso % (Auto) Neut # (Auto) Lymph # (Auto) [place] # (Auto) Eos # (Auto) Baso # (Auto) Immature Gran # (Auto) Absolute Nucleated RBC Immature Gran % Nucleated RBC % PT INR APTT Fibrinogen D-Dimer Puncture Site Right Radial Left Radial ABG pH 7.04 L* D 7.22 L D ABG pCO2 58 H D 35 D ABG pO2 330 H D 63 L D ABG HCO3 16 L 14 L ABG O2 Saturation 99 H 89 L ABG Base Excess -15 L -13 L FiO2 100 45 Sodium Potassium Chloride Carbon Dioxide Anion Gap BUN Creatinine Estim Creat Clear Calc eGFR BUN/Creatinine Ratio Glucose Calculated Osmolality Lactic Acid 10.2 H* Calcium Corrected Calcium Phosphorus Magnesium Total Bilirubin AST ALT Alkaline Phosphatase Total Protein Albumin Globulin Albumin/Globulin Ratio Blood Type Antibody Screen Crossmatch Blood Bank [facility] Blood Bank Comment 05/15/24 05/16/24 05/16/24 19:03 00:25 04:05 WBC RBC Hgb 8.5 L D Hct 25.5 L MCV MCH MCHC RDW Std Deviation Plt Count Neut % (Auto) Lymph % (Auto) [place] % (Auto) Eos % (Auto) Baso % (Auto) Neut # (Auto) Lymph # (Auto) [place] # (Auto) Eos # (Auto) Baso # (Auto) Immature Gran # (Auto) Absolute Nucleated RBC Immature Gran % Nucleated RBC % PT INR APTT Fibrinogen D-Dimer Puncture Site Right Radial Right Radial ABG pH 7.27 L 7.43 D ABG pCO2 27 L 56 H D ABG pO2 85 D 160 H D ABG HCO3 12 L 37 H ABG O2 Saturation 96 101 H ABG Base Excess -13 L 11 H FiO2 45 45 Sodium Potassium Chloride Carbon Dioxide Anion Gap BUN Creatinine Estim Creat Clear Calc eGFR BUN/Creatinine Ratio Glucose Calculated Osmolality Lactic Acid Calcium Corrected Calcium Phosphorus Magnesium Total Bilirubin AST ALT Alkaline Phosphatase Total Protein Albumin Globulin Albumin/Globulin Ratio Blood Type Antibody Screen Crossmatch Blood Bank [facility] Blood Bank Comment 05/16/24 05/16/24 05/16/24 05:05 07:52 07:52 WBC 17.3 H D RBC 3.45 L Hgb 10.0 L Hct 27.7 L MCV 80 MCH 29.0 MCHC 36.1 RDW Std Deviation 45.7 H Plt Count 82 L D Neut % (Auto) 75 Lymph % (Auto) 7 L [place] % (Auto) 9 Eos % (Auto) 1 Baso % (Auto) 1 Neut # (Auto) 13.0 H Lymph # (Auto) 1.3 [place] # (Auto) 1.5 H Eos # (Auto) 0.1 Baso # (Auto) 0.1 Immature Gran # (Auto) 1.36 H Absolute Nucleated RBC 0.05 H Immature Gran % 8 H Nucleated RBC % 0 PT 21.1 H INR 2.0 H APTT 40.9 H D Fibrinogen 106 L D-Dimer 921 H Puncture Site Right Radial ABG pH 7.48 H ABG pCO2 23 L D ABG pO2 191 H D ABG HCO3 17 L ABG O2 Saturation 100 H ABG Base Excess -5 L FiO2 45 Sodium 145 Potassium 3.4 D Chloride 109 H Carbon Dioxide 17.7 L Anion Gap 18 H BUN 74 H Creatinine 2.6 H Estim Creat Clear Calc 28.2 L eGFR 28 L BUN/Creatinine Ratio 28 H Glucose 165 H Calculated Osmolality 314 H Lactic Acid 5.3 H* Cancelled Calcium 8.3 Corrected Calcium 9.3 Phosphorus 6.4 H Magnesium 2.2 Total Bilirubin 23.6 H* D AST 490 H ALT 229 H Alkaline Phosphatase 106 Total Protein 4.6 L Albumin 2.8 L Globulin 1.8 L Albumin/Globulin Ratio 1.6 Blood Type Antibody Screen Crossmatch Blood Bank Wristband ID Blood Bank Comment Assessment & Plan Additional Plan Additional Plan: In summary this is a 59yo M admitted to the ICU with hepatic encephalopathy and shock a/p [employer]ILD[employer]IPAL Hepatic Encephalopathy- on lactulose 30 TID today CV Shock- initially hemorrhagic and due to GIB with elevated LA and poor perfusion however bleed has been adequately resuscitated and now with a component of distributive shock from sepsis. Bcx with GPC and currently on abx. LA is trending back down. bedside echo shows adequate contractility and no pericardial effusion, no evidence of obstruction or cardiogenic etiologies. on levo HFpEF- hold any diuresis for now Resp Acute hypoxic resp failure- intubated, fu on ABG , on MV, fu with CXR. - vent adjusted - unable to ween due to mental status Renal AGMA- 2/2 LA and improving JEANIE- ? prerenal v hepatorenal - on albumin and octreotide - good UOP - no change in creatinine thus far GI Cirrhosis- 2/2 ETOH, on lactulose and rifaximin, d/w Hepatology at [facility] and not a candidate for TIPS - worsening of LFTs today along with elevated TBr - due in part to shock GI proph- PPI GIB- PPI q12, octreotide gtt, seen by GI and s/p EGD with no area for banding and no ulcerations, general bleed from gastropathy - mass transfusion, given Ca after every 4 or 5 units of PRBCs - given FFP and PLT - DIC panel and given cryo Endo stable Heme Leukocytosis- initially reactive in nature , now ? 2/2 sepsis Anemia- 2/2 GIB, Thrombocytopenia- 2/2 cirrhosis as well as component of dilutional from mass transfusion ID Bacteremia- on vanc/zosyn, fu on repeat cx case d/w ICU team and transfer team labs, imaging, records reviewed ~50cc min required for eval, exam, review, intervention, discussion and formulation of POC for this critically ill pt at high risk for further and ongoing decompensation Provider Notation Provider Notation: Although this document has been carefully reviewed, there may still be some phonetic and other typographical errors. These errors are purely grammatical due to imperfections in the software program and should not be construed in any way to compromise the substance of the patient's medical care during this visit. Thank you for the opportunity and privilege in assisting you with this patient's care and management.
[2024-05-16 10:57] LABS: Reflex Lactate? Y
--- NOTE | 2024-05-16 11:11 | PD.RESPROC ---
Procedures Procedure Date / Time 05/16/24 1111 Arterial Line Indication(s): frequent arterial line sampling and shock Informed consent obtained: procedure done urgently Time out done, and the following verified: correct patient, side and site, procedure, patient position and implants and/or equipment Size (Gauge): 18 Technique used: guide wire technique Post-Procedure: line sutured into place and dry sterile dressing placed Patient tolerated procedure: well and no complications EBL(ml): 10 Complications: none Site: left and femoral Procedure comment: A time out was performed. ?Hands were washed immediately prior to the ?procedure. ?Surgical cup 1, mask with protective eyewear, sterile ?gown and sterile gloves throughout the procedure. The left inguinal ?region was prepped using chlorhexidine scrub and draped in sterile ?fashion using a three quarter sheet drape and sterile towels. The ?femoral pulse was identified. Anesthesia was achieved using 1% ?lidocaine. ?Ultrasound was used, the introducer needle was inserted into the femoral artery. Arterial blood ?was withdrawn. The syringe was removed and a guidewire was advanced ?through the needle into the femoral artery. The needle was exchanged ?over the wire for an arterial catheter. The wire was removed and the ?catheter was secured to the skin using a suture. The patient tolerated ?the procedure without any hemodynamic compromise. At time of procedure completion, the catheter was connected to the rotor casting machine operator and ?calibrated. Appropriate waveform and blood pressure tracing was ?observed. Estimated blood loss is 10cc. Patient care was discussed with attending physician Dr. Franc Banks MD PGY-2 I have carefully reviewed this document. Due to imperfections in the voice software, there could be grammatical errors including phonetic/typographic errors. This in no way compromises the medical care the patient is receiving
--- NOTE | 2024-05-16 11:25 | PD.RESPRO ---
Documentation for date of: 05/16/24 Subjective Subjective Interval history: per HPI : 59-year-old male with past medical history of alcohol use disorder, esophageal varices s/p banding, hypertension, hyperlipidemia, DM2, HFpEF (EF 55 to 60%) and biliary dyskinesia was admitted to the hospital on 05/15/2024 after coming to the ED with complaints of black starry stools and a witnessed bloody emesis. Upon my assessment patient was only able x 1 only to his name. He was unable to provide any history of what events led him to come to the hospital. He was only able to follow some simple commands, but cannot respond to complex questions about history. Most of the history was taken per chart review as patient unable to provide history and tried contacting family, but was unsuccessful. Per chart review patient had been having black starry stools for 4 days and was hypoxic when EMS evaluated the patient. Patient stated that he has not drink alcohol for the past 15 days, but most likely 1 time has passed as he was in the hospital recently for multiple days. At the time of assessment patient's blood pressure was on the lower end, but maintaining a MAP above 65. Patient noted to have an JEANIE likely in the setting of acute blood loss anemia. Patient also had some lactic acidosis along with hyperammonemia. Patient did not have any active bleeding during assessment and there was only some dried blood around patient's mouth and on his chest mostly from the bloody emesis episode he had in the ED. 05/15/24: There were 2 rapid responses this morning for large bloody bowel movement. His hemoglobin in was 5.8 and he received 4 units of PRBC , the repeat hb is 6, we willl give him additional 3 Units of PRBC. he received 1 units of prbc and 1Unit of FFP . we will give him 1 gm of calcium carbonate. Dr liu is planning to do EGD today around 11 am, he came to evulate the patient, he could not pass the EGD probe because his jaw was clenched and was difficult to open his mount , so decision was made to intubate him . 2 mg of ativa, rocurium and fentanyl was used . . started him on albumin of possible HRS . and will monitor his kidney function . Dr liu did EGD which showed diffuse blood oozing from everywhere and he could not clipped it, this patient will need TIPS and transfer to higher center. 05/15/2024. Patient was seen and examined at bedside. Overnight patient's hemoglobin dropped to 8.5, and has a round of PRBC, platelets, FFP was given. Repeat CBC in the morning revealed hemoglobin of 10, hematocrit 27.7. Will continue closely monitor CBC. Overnight patient had 415 mL of NG tube suction, 1 bowel movement. Patient repeat ABG revealed respiratory alkalosis with pH of 7.49, pCO2 27, respiratory rate was decreased to 12, will follow-up with repeat ABG. Today patient had a GPS score of 3T, was not responding to sternal rub, did not respond to bilateral lower and upper extremity pain stimuli. Overnight patient was given 1 L of LR, will continue support with vasopressin, continue Precedex, patient had arterial and central line placement. Current management wean off from pressors as tolerates, we will continue lactulose, added rifaximin, continue assessing mental status. Multiple hospitals, including [place] and [facility], have declined to accept the transfer of the patient, citing concerns that the TIPS procedure would pose too significant a risk. These institutions have expressed that, given the patient?s current condition, proceeding with the procedure would be deemed too dangerous at this time. TRansfer order was DC. Exam Vital Signs Temp Pulse Resp BP Pulse Ox O2 Del Method O2 Flow Rate 98.6 F 70 35 H 108/52 L 99 Mechanical Ventilation 3 05/16/24 07:30 05/16/24 10:23 05/16/24 07:30 05/16/24 10:23 05/16/24 10:23 05/16/24 04:00 05/16/24 03:05 FiO2 45 05/16/24 10:23 Narrative Exam GENERAL:Severly icteric Ill looking man,Currently intubated and MV HEENT: Normocephalic, atraumatic. Pupils are equal and reactive. icteric sclera, teeth loose with dryed blood in mucosa. RIJ noted , dressing clean and dry. NECK: Supple, nontender, no JVD CARDIOVASCULAR: Heart regular rhythm & rate. S1/S2. no murmur or gallop rub or extra beats. LUNGS: Clear to auscultation bilaterally with symmetrical chest rise. No laboring tachypnea or wheezing. No intercostal subcostal retraction. No rales and no rhonchi. ABDOMEN: Distended Active and normal bowel sounds. EXTREMITIES/skin : Icteric , smill necrotic area around right big toe . Left Art line, dressing clean and dry NEURO: Intubated and MV PSYCHIATRIC: Intubated and MV Objective Labs 05/16/24 13:34 05/16/24 07:52 Labs: Laboratory Results - last 24 hr 05/14/24 05/15/24 05/15/24 21:46 14:03 14:25 WBC 28.5 H D RBC 3.33 L Hgb 9.6 L D Hct 29.0 L D MCV 87 MCH 28.8 MCHC 33.1 RDW Std Deviation 55.0 H Plt Count 132 L Neut % (Auto) 70 Lymph % (Auto) 7 L [place] % (Auto) 10 Eos % (Auto) 1 Baso % (Auto) 0 Neut # (Auto) 20.1 H Lymph # (Auto) 2.0 [place] # (Auto) 3.0 H Eos # (Auto) 0.1 Baso # (Auto) 0.0 Immature Gran # (Auto) 3.36 H Absolute Nucleated RBC 0.03 H Immature Gran % 12 H Nucleated RBC % 0 PT 20.9 H INR 2.0 H APTT 51.8 H Fibrinogen 87 L* D-Dimer 1050 H Puncture Site Right Radial ABG pH 7.04 L* D ABG pCO2 58 H D ABG pO2 330 H D ABG HCO3 16 L ABG O2 Saturation 99 H ABG Base Excess -15 L FiO2 100 Sodium 145 Potassium 4.2 Chloride 110 H Carbon Dioxide 13.8 L* Anion Gap 21 H BUN 61 H Creatinine 2.5 H Estim Creat Clear Calc 29.4 L eGFR 29 L BUN/Creatinine Ratio 24 H Glucose 131 H Calculated Osmolality 307 H Lactic Acid 10.1 H* Calcium 8.6 Corrected Calcium 9.2 Phosphorus Magnesium Total Bilirubin 20.3 H* D AST 228 H ALT 112 H Alkaline Phosphatase 108 Total Protein 4.9 L Albumin 3.2 L D Globulin 1.7 L Albumin/Globulin Ratio 1.9 Blood Type O Positive Antibody Screen NEGATIVE Crossmatch See Detail Blood Bank Wristband ID Yes Blood Bank Comment PLATP Ready 05/15/24 05/15/24 05/15/24 16:08 17:55 19:03 WBC RBC Hgb 11.3 L Hct 33.2 L MCV MCH MCHC RDW Std Deviation Plt Count Neut % (Auto) Lymph % (Auto) [place] % (Auto) Eos % (Auto) Baso % (Auto) Neut # (Auto) Lymph # (Auto) [place] # (Auto) Eos # (Auto) Baso # (Auto) Immature Gran # (Auto) Absolute Nucleated RBC Immature Gran % Nucleated RBC % PT INR APTT Fibrinogen D-Dimer Puncture Site Left Radial Right Radial ABG pH 7.22 L D 7.27 L ABG pCO2 35 D 27 L ABG pO2 63 L D 85 D ABG HCO3 14 L 12 L ABG O2 Saturation 89 L 96 ABG Base Excess -13 L -13 L FiO2 45 45 Sodium Potassium Chloride Carbon Dioxide Anion Gap BUN Creatinine Estim Creat Clear Calc eGFR BUN/Creatinine Ratio Glucose Calculated Osmolality Lactic Acid 10.2 H* Calcium Corrected Calcium Phosphorus Magnesium Total Bilirubin AST ALT Alkaline Phosphatase Total Protein Albumin Globulin Albumin/Globulin Ratio Blood Type Antibody Screen Crosssdtch Blood Bank [facility] Blood Bank Comment 05/16/24 05/16/24 05/16/24 00:25 04:05 05:05 WBC RBC Hgb 8.5 L D Hct 25.5 L MCV MCH MCHC RDW Std Deviation Plt Count Neut % (Auto) Lymph % (Auto) [place] % (Auto) Eos % (Auto) Baso % (Auto) Neut # (Auto) Lymph # (Auto) [place] # (Auto) Eos # (Auto) Baso # (Auto) Immature Gran # (Auto) Absolute Nucleated RBC Immature Gran % Nucleated RBC % PT INR APTT Fibrinogen D-Dimer Puncture Site Right Radial Right Radial ABG pH 7.43 D 7.48 H ABG pCO2 56 H D 23 L D ABG pO2 160 H D 191 H D ABG HCO3 37 H 17 L ABG O2 Saturation 101 H 100 H ABG Base Excess 11 H -5 L FiO2 45 45 Sodium Potassium Chloride Carbon Dioxide Anion Gap BUN Creatinine Estim Creat Clear Calc eGFR BUN/Creatinine Ratio Glucose Calculated Osmolality Lactic Acid Calcium Corrected Calcium Phosphorus Magnesium Total Bilirubin AST ALT Alkaline Phosphatase Total Protein Albumin Globulin Albumin/Globulin Ratio Blood Type Antibody Screen Crosssdtch Blood Bank [facility] Blood Bank Comment 05/16/24 05/16/24 07:52 07:52 WBC 17.3 H D RBC 3.45 L Hgb 10.0 L Hct 27.7 L MCV 80 MCH 29.0 MCHC 36.1 RDW Std Deviation 45.7 H Plt Count 82 L D Neut % (Auto) 75 Lymph % (Auto) 7 L [place] % (Auto) 9 Eos % (Auto) 1 Baso % (Auto) 1 Neut # (Auto) 13.0 H Lymph # (Auto) 1.3 [place] # (Auto) 1.5 H Eos # (Auto) 0.1 Baso # (Auto) 0.1 Immature Gran # (Auto) 1.36 H Absolute Nucleated RBC 0.05 H Immature Gran % 8 H Nucleated RBC % 0 PT 21.1 H INR 2.0 H APTT 40.9 H D Fibrinogen 106 L D-Dimer 921 H Puncture Site ABG pH ABG pCO2 ABG pO2 ABG HCO3 ABG O2 Saturation ABG Base Excess FiO2 Sodium 145 Potassium 3.4 D Chloride 109 H Carbon Dioxide 17.7 L Anion Gap 18 H BUN 74 H Creatinine 2.6 H Estim Creat Clear Calc 28.2 L eGFR 28 L BUN/Creatinine Ratio 28 H Glucose 165 H Calculated Osmolality 314 H Lactic Acid 5.3 H* Cancelled Calcium 8.3 Corrected Calcium 9.3 Phosphorus 6.4 H Magnesium 2.2 Total Bilirubin 23.6 H* D AST 490 H ALT 229 H Alkaline Phosphatase 106 Total Protein 4.6 L Albumin 2.8 L Globulin 1.8 L Albumin/Globulin Ratio 1.6 Blood Type Antibody Screen Crossmatch Blood Bank Wristband ID Blood Bank Comment ABG Interpretation ABG results: 05/15/24 05/15/24 05/15/24 08:45 14:25 16:08 ABG pH 7.31 L 7.04 L* D 7.22 L D ABG pCO2 20 L 58 H D 35 D ABG pO2 116 H 330 H D 63 L D ABG HCO3 10 L 16 L 14 L ABG O2 Saturation 98 99 H 89 L ABG Base Excess -15 L -15 L -13 L 05/15/24 05/16/24 05/16/24 19:03 04:05 05:05 ABG pH 7.27 L 7.43 D 7.48 H ABG pCO2 27 L 56 H D 23 L D ABG pO2 85 D 160 H D 191 H D ABG HCO3 12 L 37 H 17 L ABG O2 Saturation 96 101 H 100 H ABG Base Excess -13 L 11 H -5 L Quality Measures Quality Measures none Assessment & Plan Assessment Current Active Medications: Generic Name Dose Route Start Last Admin Trade Name Freq PRN Reason Stop Dose Admin Acetaminophen 650 mg 05/15/24 01:17 Acetaminophen Supp 650 Mg Supp ND 06/14/24 01:16 Q6HR PRN pain and Fever > 100.4 Dextrose 25 ml 05/15/24 01:22 Dextrose 50%-Water Inj 50 Ml Syringe IV 06/14/24 01:21 Q15MIN PRN BG 50-70 responsive npo pt Dextrose 50 ml 05/15/24 01:22 Dextrose 50%-Water Inj 50 Ml Syringe IV 06/14/24 01:21 Q15MIN PRN BG <50 OR BG <70 & pt unresponsive Glucagon 1 mg 05/15/24 01:22 Glucagon Inj 1 Mg Vial IM Q15MIN PRN BG <70, and no IV access Octreotide Acetate 1,000 mcg/ 102 mls @ 5.1 mls/hr 05/15/24 18:30 05/15/24 17:45 Sodium Chloride IV 05/19/24 22:22 50 mcg/hr .Q20H SREE 5.1 mls/hr Administration Protocol 50 MCG/HR Albumin Human 25 gm in 100 mls @ 100 mls/hr 05/15/24 07:49 05/16/24 08:34 Albuminar-25 Ivpb IV 05/18/24 07:48 100 mls/hr QDAY SREE Administration Piperacillin/Tazobactam/Dextrose 3.375 gm in 50 mls @ 12.5 mls/hr 05/15/24 14:00 05/16/24 05:00 Zosyn IV 05/22/24 13:59 12.5 mls/hr Q8HR SREE Administration Protocol Dexmedetomidine/Sodium Chloride 200 mcg in 50 mls @ 3.763 mls/hr 05/15/24 12:26 05/16/24 06:03 Precedex Ivpb IV 06/14/24 12:25 0.2 mcg/kg/hr .[id number] PRN 3.763 mls/hr Per PROTOCOL Administration Protocol 0.2 MCG/KG/HR Norepinephrine/Dextrose 8 mg in 250 mls @ 6.966 mls/hr 05/15/24 20:25 05/16/24 06:35 Levophed In D5w 8mg/250ml IV 06/14/24 20:24 0 mcg/kg/min .Q24H PRN 0 mls/hr PER PROTOCOL Titration Protocol 0.05 MCG/KG/MIN Vancomycin/Sodium Chloride 100 mls @ 120 mls/hr 05/16/24 12:00 Vancomycin/Ns 500 Mg Ivpb IV 05/16/24 12:49 X1 ONE Insulin Human Lispro 0 unit 05/15/24 06:00 05/16/24 06:06 Insulin Lispro (Admelog) 1 Unit/0.01 Ml Unit SC 06/14/24 05:59 1 unit Q6HR SREE Administration Protocol Lactulose 30 gm 05/16/24 14:00 Lactulose Syrup 20 Gm/30 Ml Udc NG 06/15/24 13:59 TID SREE Protocol Ondansetron HCl 4 mg 05/15/24 01:17 05/15/24 05:46 Ondansetron Inj 2 Mg/Ml Inj 2 Ml IV 06/14/24 01:16 4 mg Q6H PRN Administration NAUSEA OR VOMITING Protocol Pantoprazole Sodium 80 mg 05/15/24 21:00 05/16/24 08:34 Pantoprazole Inj 40 Mg Vial IVP 06/14/24 20:59 80 mg BID SREE Administration Pharmacy Consult 1 each 05/15/24 17:30 Vancomycin Pharmacy To Dose 1 Each Each IV 06/14/24 17:29 QDAY PRN CONSULT Rifaximin 550 mg 05/16/24 10:45 Rifaximin 550 Mg Tablet NG 05/23/24 10:44 BID SREE Plan 59-year-old male with past medical history of alcohol use disorder, esophageal varices s/p banding, hypertension, hyperlipidemia, DM2, HFpEF (EF 55 to 60%) and biliary dyskinesia was admitted to the hospital on 05/15/2024 for shock, most likely hypovolemic(hemorrhagic class III) combined with a septic shock requiring pressors, and massive blood transfusion due to severe GI bleed [employer] #Hepatic Encephalopathy - Head CT Negative -Ammonia on admission was 142 -Restart lactulose 30 3 times daily through G-tube -rifaximin 550 BID -Intubated and mechanically ventilated -On Precedex drip with RASS score of 0 -In a.m. GPS score of 3T, frequent mental status reassessment RESPI Intubated and MV Respiratory alkalosis, decreased respiratory rate -Will follow with you ABG -Vent setting- A/CMV VC , VT- 450, flow -45, rr- 12 ,PEEP-5 CVS #mixed hypovolemic(class 3 hemorrhagic shock) +septic shock -Class III hemorrhage involves a 30 to 40 percent blood volume loss, resulting in a significant drop in blood pressure and changes in mental status -he has received massive blood transfusion, calcium was replaced -continue support with pressors, as needed blood products transfusion, monitor, correct accordingly -BC / +GPC. continue cover with zosyn and vanc -repeat BC #history of HTN #History of HLD #HFpEF (55-60%) ?Doesn't look fluid overloaded - Echo showed EF 55-60% GI #Acute GI bleed #Hx of Grade 3 esophageal varices s/p banded (04/28) #Hx of alcohol use disorder ?Patient came in with complaints of black starry stools and bloody emesis witnessed in the ED ?Initial hemoglobin was 5.8 - EGD done during on 04/28/2024 showed grade 3 esophageal varices which were banded as well as erythematous mucosa in the stomach. -FOBT positive -patient received 5 U prbc , 1 U of FFP and 1U of platelets till now -Dr. Liu scoped the patient and showed 1+ esophageal varices and bleeding were going everywhere and was not large enough for band ligation , and the band attenp failed ,and he will need transfer for TIPS shunt. -will continue octeotride and blood products and transfer the patient to higher center . -05/16:Multiple hospitals, including [place] and [facility], have declined to accept the transfer of the patient, citing concerns that the TIPS procedure would pose too significant a risk. These institutions have expressed that, given the patient?s current condition, proceeding with the procedure would be deemed too dangerous at this time, he is not stable as well #Cirrhosis #Hyperbilirubinemia #Hyperammonemia #Ascites #SBP? - Patient A/Ox1 (only to person)on admission , likely due to hyperammonemia in the setting of cirrhosis, today GCS score was 3T - MELD NA score of 34 point indicating 65-66% mortality - Initial Child-Garcia score of 13 points, Class C - Liver function on addmision AST 76, ALT 84, alkaline phosphatase 152, ammonia 142, T bilirubin 23 - INR 2.2 and PT 22.6 -Continue octreotide drip [05/14/2024?] ?Continue Protonix -Continue Zosyn -Patient will need TIPS shunt, however transport was declined from multiple institutions due to high risk as well as patient not being stable. RENAL #JEANIE #Hypoalbuminemia #?Hepato renal syndrome - Initial creatinine of 2.6 and BUN of 62 compared to patient's baseline which is currently around 1 -Albumin 2 -Most likely prerenal in the setting of GI bleed versus due to hepatorenal syndrome -Albumin 75 g x 1, will follow 25% albumin:?IV:?Initial: 1 g/kg daily for 2 days (maximum: 100 g/day), followed by 20 to 50 g daily until clinical outcome is achieved -Sanchez in place -Avoid nephrotoxic agents -Renally dose medication -Will continue to monitor # Pure high anion gap metabolic acidosis #Lactic acidosis improving -Patient has HAGMA likley secondary to lactic acidosis likely due to inability to clear lactic acid -delta gap was 1.5 -Will trend lactic acid -Will follow up on Abg ENDO #DM2 -A1c 6.7% on 04/2024 -ISS - Hypoglycemia protocol ordered ID #Sepsis unknown source #?SBP 1/2 bottles for positive for GPC -Continue coverage with Zosyn and vancomycin we will obtain peritoneal fluid analysis onc patient is more stable Heme #DIC -ISTH criteria for DIC 5 points - compatible with DIC -DIC panel, after cryoprecipitate use PT 21.1, INR 2, APTT 40.9, fibrinogen 1 6, PT eval 921 -follow up on repeat DIC pannel #Acute blood loss anemia Patient received multiple rounds of blood product transfusion -Continue monitor transfuse if hemoglobin less than 7 Lines : 4 peripheral 2 -20 G and 2- 22G Disposition:Intubated in ICU , MV, pressors Diet and fluids:NPO, prbc , ffp , platelets as needed DVT prophylaxis:None ,scd GI prophylaxis:protonix CODE STATUS:Full code Patient care was discussed with attending physician Dr. Franc Banks MD PGY-2
[2024-05-16 11:38] LABS: Base Excess -2 (-3-3); HCO3 21 mEq/L (20-26); Inspired Oxygen, FIO2 45 %; O2 Saturation 100 % (91-98); PCO2 27 mmHg (32.0-48.0); PO2 173 mmHg (83-108); pH, Arterial 7.49 (7.35-7.45)
[2024-05-16 11:40] LABS: Allen Test Not Performed; Puncture Site Arterial Line
--- NOTE | 2024-05-16 12:03 | XR_ITS ---
Examination: AP chest single view Technique one AP portable supine chest single view Exam date and time: May 16, 2024 1124 hrs. Indications: Hypoxic respiratory failure post central line placement Findings: Tracheal tube tip 4.5 cm above vonda Atelectasis versus pneumonia left base Right internal jugular central line tip SVC no pneumothorax Orogastric tube satisfactory position Impression: Right internal jugular central line tip SVC satisfactory position
[2024-05-16] MEDS: rifaximin 550 MG TABLET NG ×2 (13:00→21:37)
[2024-05-16] MEDS: Norepinephrine/D5W 8mg/250ml 8 MG/250 ML BAG 12.538 MG IV (13:15)
[2024-05-16] MEDS: VANCOMYCIN/NS 500 MG IVPB 100 ML 120 MG IV (13:32)
[2024-05-16 13:46] LABS: Lactic Acid, 3 HR 3.1 mMol/L (0.4-2.0)
[2024-05-16 13:57] LABS: Hematocrit 24.5 % (41.0-53.0)
[2024-05-16 14:00] LABS: Hemoglobin 8.7 g/dL (13.5-16.0)
[2024-05-16] MEDS: CALCIUM GLUC/NS 1000MG IVPB 1,000 MG/50 ML BAG 50 MG IV (14:44)
[2024-05-16 14:58] LABS: Base Excess -1 (-3-3); HCO3 21 mEq/L (20-26); Inspired Oxygen, FIO2 45 %; O2 Saturation 100 % (91-98); PCO2 26 mmHg (32.0-48.0); PO2 160 mmHg (83-108); pH, Arterial 7.52 (7.35-7.45)
[2024-05-16] MEDS: LACTULOSE SYRUP 20 GM/30 ML UDC 30 GM NG ×2 (15:00→21:34)
[2024-05-16 15:01] LABS: Allen Test Not Performed; Puncture Site Arterial Line
--- NOTE | 2024-05-16 17:28 | ESPR_ITS ---
Documentation for date of: 05/16/24 Subjective Subjective Interval history: Patient evaluated in the ICU So far he has not been accepted for transfer into any tertiary center they all have refused Patient will need to hepatorenal syndrome He was in DIC yesterday Continues to have upper bleed with 450 cc of dark maroon-colored blood via the NGT Exam Vital Signs Temp Pulse Resp BP Pulse Ox O2 Del Method O2 Flow Rate 97.5 F 77 35 H 146/64 H 99 Mechanical Ventilation 3 05/16/24 12:00 05/16/24 15:15 05/16/24 07:30 05/16/24 15:15 05/16/24 15:15 05/16/24 12:00 05/16/24 03:05 FiO2 45 05/16/24 14:08 Objective Labs 05/16/24 13:34 05/16/24 07:52 Labs: Laboratory Results - last 24 hr 05/14/24 05/15/24 05/15/24 21:46 17:55 19:03 WBC RBC Hgb 11.3 L Hct 33.2 L MCV MCH MCHC RDW Std Deviation Plt Count Neut % (Auto) Lymph % (Auto) [place] % (Auto) Eos % (Auto) Baso % (Auto) Neut # (Auto) Lymph # (Auto) [place] # (Auto) Eos # (Auto) Baso # (Auto) Immature Gran # (Auto) Absolute Nucleated RBC Immature Gran % Nucleated RBC % PT INR APTT Fibrinogen D-Dimer Puncture Site Right Radial ABG pH 7.27 L ABG pCO2 27 L ABG pO2 85 D ABG HCO3 12 L ABG O2 Saturation 96 ABG Base Excess -13 L FiO2 45 Sodium Potassium Chloride Carbon Dioxide Anion Gap BUN Creatinine Estim Creat Clear Calc eGFR BUN/Creatinine Ratio Glucose Calculated Osmolality Lactic Acid 10.2 H* Calcium Corrected Calcium Phosphorus Magnesium Total Bilirubin AST ALT Alkaline Phosphatase Total Protein Albumin Globulin Albumin/Globulin Ratio Blood Type O Positive Antibody Screen NEGATIVE Crossmatch See Detail Blood Bank Wristband ID Yes Blood Bank Comment PLATP Ready 05/16/24 05/16/24 05/16/24 00:25 04:05 05:05 WBC RBC Hgb 8.5 L D Hct 25.5 L MCV MCH MCHC RDW Std Deviation Plt Count Neut % (Auto) Lymph % (Auto) [place] % (Auto) Eos % (Auto) Baso % (Auto) Neut # (Auto) Lymph # (Auto) [place] # (Auto) Eos # (Auto) Baso # (Auto) Immature Gran # (Auto) Absolute Nucleated RBC Immature Gran % Nucleated RBC % PT INR APTT Fibrinogen D-Dimer Puncture Site Right Radial Right Radial ABG pH 7.43 D 7.48 H ABG pCO2 56 H D 23 L D ABG pO2 160 H D 191 H D ABG HCO3 37 H 17 L ABG O2 Saturation 101 H 100 H ABG Base Excess 11 H -5 L FiO2 45 45 Sodium Potassium Chloride Carbon Dioxide Anion Gap BUN Creatinine Estim Creat Clear Calc eGFR BUN/Creatinine Ratio Glucose Calculated Osmolality Lactic Acid Calcium Corrected Calcium Phosphorus Magnesium Total Bilirubin AST ALT Alkaline Phosphatase Total Protein Albumin Globulin Albumin/Globulin Ratio Blood Type Antibody Screen Crossmatch Blood Bank Wristband ID Blood Bank Comment 05/16/24 05/16/24 05/16/24 07:52 07:52 11:34 WBC 17.3 H D RBC 3.45 L Hgb 10.0 L Hct 27.7 L MCV 80 MCH 29.0 MCHC 36.1 RDW Std Deviation 45.7 H Plt Count 82 L D Neut % (Auto) 75 Lymph % (Auto) 7 L [place] % (Auto) 9 Eos % (Auto) 1 Baso % (Auto) 1 Neut # (Auto) 13.0 H Lymph # (Auto) 1.3 [place] # (Auto) 1.5 H Eos # (Auto) 0.1 Baso # (Auto) 0.1 Immature Gran # (Auto) 1.36 H Absolute Nucleated RBC 0.05 H Immature Gran % 8 H Nucleated RBC % 0 PT 21.1 H INR 2.0 H APTT 40.9 H D Fibrinogen 106 L D-Dimer 921 H Puncture Site Arterial Line ABG pH 7.49 H ABG pCO2 27 L ABG pO2 173 H ABG HCO3 21 ABG O2 Saturation 100 H ABG Base Excess -2 FiO2 45 Sodium 145 Potassium 3.4 D Chloride 109 H Carbon Dioxide 17.7 L Anion Gap 18 H BUN 74 H Creatinine 2.6 H Estim Creat Clear Calc 28.2 L eGFR 28 L BUN/Creatinine Ratio 28 H Glucose 165 H Calculated Osmolality 314 H Lactic Acid 5.3 H* Cancelled Calcium 8.3 Corrected Calcium 9.3 Phosphorus 6.4 H Magnesium 2.2 Total Bilirubin 23.6 H* D AST 490 H ALT 229 H Alkaline Phosphatase 106 Total Protein 4.6 L Albumin 2.8 L Globulin 1.8 L Albumin/Globulin Ratio 1.6 Blood Type Antibody Screen Crossmatch Blood Bank [facility] Blood Bank Comment 05/16/24 05/16/24 13:34 14:20 WBC RBC Hgb 8.7 L Hct 24.5 L MCV MCH MCHC RDW Std Deviation Plt Count Neut % (Auto) Lymph % (Auto) [place] % (Auto) Eos % (Auto) Baso % (Auto) Neut # (Auto) Lymph # (Auto) [place] # (Auto) Eos # (Auto) Baso # (Auto) Immature Gran # (Auto) Absolute Nucleated RBC Immature Gran % Nucleated RBC % PT INR APTT Fibrinogen D-Dimer Puncture Site Arterial Line ABG pH 7.52 H ABG pCO2 26 L ABG pO2 160 H ABG HCO3 21 ABG O2 Saturation 100 H ABG Base Excess -1 FiO2 45 Sodium Potassium Chloride Carbon Dioxide Anion Gap BUN Creatinine Estim Creat Clear Calc eGFR BUN/Creatinine Ratio Glucose Calculated Osmolality Lactic Acid 3.1 H Calcium Corrected Calcium Phosphorus Magnesium Total Bilirubin AST ALT Alkaline Phosphatase Total Protein Albumin Globulin Albumin/Globulin Ratio Blood Type Antibody Screen Crosstntch Blood Bank [facility] Blood Bank Comment Impressions Impression: # Upper GI bleed mostly esophageal variceal bleed and possibly gastric variceal bleed # Mucosal oozing of blood in the setting of chronic liver disease and hypertensive portal gastropathy # Hepatorenal syndrome # Improving DIC Plan Continue current management Consent obtained for a repeat fiberoptic esophagogastroduodenoscopy scheduled for tomorrow morning to see if any therapeutic intervention can be done ABG Interpretation ABG results: 05/15/24 05/15/24 05/15/24 08:45 14:25 16:08 ABG pH 7.31 L 7.04 L* D 7.22 L D ABG pCO2 20 L 58 H D 35 D ABG pO2 116 H 330 H D 63 L D ABG HCO3 10 L 16 L 14 L ABG O2 Saturation 98 99 H 89 L ABG Base Excess -15 L -15 L -13 L 05/15/24 05/16/24 05/16/24 19:03 04:05 05:05 ABG pH 7.27 L 7.43 D 7.48 H ABG pCO2 27 L 56 H D 23 L D ABG pO2 85 D 160 H D 191 H D ABG HCO3 12 L 37 H 17 L ABG O2 Saturation 96 101 H 100 H ABG Base Excess -13 L 11 H -5 L 05/16/24 05/16/24 11:34 14:20 ABG pH 7.49 H 7.52 H ABG pCO2 27 L 26 L ABG pO2 173 H 160 H ABG HCO3 21 21 ABG O2 Saturation 100 H 100 H ABG Base Excess -2 -1 Assessment & Plan A&P Narrative Acute upper GI bleed in the form of melena and hematemesis Acute posthemorrhagic anemia in the setting of chronic liver disease with thrombocytopenia and coagulopathy Plan Continue supportive care Patient will have to be intubated to protect the airway as well as he is clenching his mouth and I cannot open his jaw to place bite block I have asked the intensive care unit specialist Dr. Bruner to intubate the patient paralyze him so I can proceed with the procedure she was kind enough to do so Octreotide drip at 50 mcg/h Protonix drip Serial CBC Will follow the patient Time Spent With Patient Time: Total time spent is greater than 50% in coordination of care (as documented) at patient's floor/unit and/or counseling patient: Procedures Arterial Line Size (Gauge): 18
[2024-05-16 18:42] LABS: Base Excess 0 (-3-3); HCO3 21 mEq/L (20-26); Inspired Oxygen, FIO2 45 %; O2 Saturation 100 % (91-98); PCO2 25 mmHg (32.0-48.0); PO2 201 mmHg (83-108); pH, Arterial 7.55 (7.35-7.45)
[2024-05-16 18:43] LABS: Puncture Site Arterial Line
[2024-05-16 19:24] LABS: Lactate (Lactic Acid) 2.7 mMol/L (0.4-2.0)
[2024-05-16] MEDS: DEXMEDETOMIDINE 200 MCG IVPB 200 MCG/50 ML BOTTLE 11.288 MCG IV (19:26)
[2024-05-16 19:28] LABS: Hematocrit 25.6 % (41.0-53.0); Hemoglobin 9.1 g/dL (13.5-16.0)
[2024-05-16] MEDS: OCTREOTIDE ACET INJ 1,000 MCG in SODIUM CHLORIDE 0.9% 100 ML 5.1 MCG IV (19:37)
[2024-05-16 22:01] LABS: Base Excess 0 (-3-3); HCO3 22 mEq/L (20-26); Inspired Oxygen, FIO2 45 %; O2 Saturation 100 % (91-98); PCO2 25 mmHg (32.0-48.0); PO2 206 mmHg (83-108); pH, Arterial 7.55 (7.35-7.45)
[2024-05-16 22:02] LABS: Allen Test Performed/OK; Puncture Site Arterial Line
[2024-05-16 22:23] LABS: Reflex Lactate? Y
--- NOTE | 2024-05-16 22:50 | PD.RESPROC ---
Procedures Procedure Date / Time 05/16/24 2125 Arterial Line Size (Gauge): 18 Central Line Placement Right IJ: Indication(s): shock and poor, or inadequate peripheral venous access Informed consent obtained: procedure done urgently Time out done, and the following verified: correct patient, side and site, procedure, patient position and implants and/or equipment Patient placed on monitor/pulse ox: Yes Hand Hygiene: scrub and soap & water Max Sterile Barrier Techniques used: cap, mask, sterile gown, sterile gloves and sterile full body drape Central line prep: Chlorhexidine scrub and sterile drapes applied Ultrasound used for placement: Yes Sterile Technique if Ultrasound used, including sterile gel: yes Central line lumen inserted: triple Post procedure: sutured in place, good blood return, all ports aspirated, flushed, capped and sterile dressing applied Post procedure x-ray: tip of catheter in good position and no pneumothorax seen Patient tolerated procedure: well EBL(ml): 5 Complications: none
[2024-05-17] VITALS (122 sets, daily range): BP systolic 95–187; BP diastolic 44–79; PULSE 58–88; RESP 9–30; TEMP 36.2–36.9; O2SAT 92–99; BMI 27.1
[2024-05-17] MEDS: DEXMEDETOMIDINE 200 MCG IVPB 200 MCG/50 ML BOTTLE 11.288 MCG IV
[2024-05-17] MEDS: INSULIN LISPRO (AdmeLOG) 1 UNIT/0.01 ML UNIT SC (00:15)
[2024-05-17 01:02] LABS: Hemoglobin 8.8 g/dL (13.5-16.0)
[2024-05-17 05:44] LABS: Lactate (Lactic Acid) 2.7 mMol/L (0.4-2.0)
[2024-05-17 05:46] LABS: Basophils % (Auto) 0 % (0-2.5); Eosinophils # (Auto) 0.1 Thou/mm3 (0.0-0.5); Eosinophils % (Auto) 1 % (0-10); Hematocrit 25.9 % (41.0-53.0); Immature Granulocytes % (Auto) 6 % (0-0); Immature Granulocytes Auto 0.82 Thou/mm3 (0.00-0.00); Lymphocytes # (Auto) 1.1 Thou/mm3 (1.0-4.8); Lymphocytes % (Auto) 7 % (10-50); Mean Corpuscular HGB Conc 34.4 g/dl (31.0-37.0); Mean Corpuscular Hemoglobin 28.7 pg (25.0-35.0); Mean Corpuscular Volume 84 fL (80-100); Monocytes # (Auto) 1.1 Thou/mm3 (0.0-0.8); Monocytes % (Auto) 8 % (0-12); Neutrophils # (Auto) 11.5 Thou/mm3 (1.8-7.7); Neutrophils % (Auto) 79 % (37-80); Nucleated Red Blood Cell # 0.05 Thou/mm3 (0.00-0.00); Nucleated Red Blood Cell % 0 /100 WBC (0); RDW Standard Deviation 48.8 fL (35.1-43.9); White Blood Count 14.6 Thou/mm3 (3.8-10.6)
[2024-05-17 05:48] LABS: Hemoglobin 8.9 g/dL (13.5-16.0); Platelet Count 69 Thou/mm3 (140-440)
[2024-05-17 06:12] LABS: Slide Review Platelets confirmed
[2024-05-17 06:24] LABS: Alanine Aminotransferase 204 U/L (10-49); Albumin, Serum 2.7 gm/dL (3.5-5.0); Albumin/Globulin Ratio 1.4 (1.2-2.2); Alkaline Phosphatase 104 U/L (46-116); Anion Gap 15 (7-16); Aspartate Amino Transferase 335 U/L (0-34); BUN/Creatinine Ratio 37 Ratio (12-20); Blood Urea Nitrogen 85 mg/dL (9-23); Calcium 8.4 mg/dL (8.3-10.6); Calcium (Corrected) 9.4 mg/dL (8.5-10.1); Carbon Dioxide 22.3 mMol/L (20.0-31.0); Chloride 115 mMol/L (98-107); Creatinine (Component) 2.3 mg/dL (0.6-1.3); Estimated Creatinine Clearance 31.9 mL/min (>60); Globulin 1.9 gm/dL (2.3-3.5); Glucose 152 mg/dL (74-106); Magnesium 2.5 mg/dL (1.6-2.6); Osmolality,Calculated 330 (275-295); Potassium 2.8 mMol/L (3.4-5.1); Sodium 152 mMol/L (136-145); Total Protein 4.6 gm/dL (5.7-8.2); Vancomycin,Random 11.7 mcg/mL; eGFR 32 See Note
[2024-05-17 06:27] LABS: INR 2.1 (0.9-1.3); Prothrombin Time 21.4 Seconds (9.0-12.2)
[2024-05-17] MEDS: LACTULOSE SYRUP 20 GM/30 ML UDC 30 GM NG ×3 (06:36→22:45)
[2024-05-17] MEDS: PIPER/TAZO 3.375 GM PREMIX 3.375 GM/50 ML BAG IV ×3 (06:36→22:40)
[2024-05-17] MEDS: DEXMEDETOMIDINE 200 MCG IVPB 200 MCG/50 ML BOTTLE 7.525 MCG IV ×2 (06:37→15:36)
[2024-05-17 06:39] LABS: Bilirubin,Total 26.1 mg/dL (0.3-1.2)
[2024-05-17 08:37] LABS: Reflex Lactate? Y
[2024-05-17 08:43] LABS: Lactic Acid, 3 HR 2.8 mMol/L (0.4-2.0)
[2024-05-17] MEDS: VANCOMYCIN/NS 500 MG IVPB 100 ML 120 MG IV (10:03)
[2024-05-17] MEDS: ALBUMIN HUMAN 25% IVPB 25 GM/100 ML BTL IV (10:03)
[2024-05-17] MEDS: PANTOPRAZOLE INJ 40 MG VIAL 80 MG IVP ×2 (10:04→20:42)
[2024-05-17] MEDS: rifaximin 550 MG TABLET NG ×2 (10:04→20:46)
--- NOTE | 2024-05-17 11:00 | PC.SS ---
POINT OF SALE ASSOCIATE fielded phone call from patient?s son Benjamin Villarreal Jr. submitting request to assist brother (Yuri Villarreal) with obtaining leave acceptance from [facility] to visit patient.? POINT OF SALE ASSOCIATE contacted Sgt Russell to confirm request.? Sgt Russell confirmed request and stated support for patient?s son, Yuri Villarreal; to obtain leave.? POINT OF SALE ASSOCIATE informed that Amasa will initiate contact to assist with request.?
--- NOTE | 2024-05-17 11:02 | ESPR_ITS ---
Documentation for date of: 05/17/24 Subjective Subjective Interval history: per HPI : 59-year-old male with past medical history of alcohol use disorder, esophageal varices s/p banding, hypertension, hyperlipidemia, DM2, HFpEF (EF 55 to 60%) and biliary dyskinesia was admitted to the hospital on 05/15/2024 after coming to the ED with complaints of black starry stools and a witnessed bloody emesis. Upon my assessment patient was only able x 1 only to his name. He was unable to provide any history of what events led him to come to the hospital. He was only able to follow some simple commands, but cannot respond to complex questions about history. Most of the history was taken per chart review as patient unable to provide history and tried contacting family, but was unsuccessful. Per chart review patient had been having black starry stools for 4 days and was hypoxic when EMS evaluated the patient. Patient stated that he has not drink alcohol for the past 15 days, but most likely 1 time has passed as he was in the hospital recently for multiple days. At the time of assessment patient's blood pressure was on the lower end, but maintaining a MAP above 65. Patient noted to have an JEANIE likely in the setting of acute blood loss anemia. Patient also had some lactic acidosis along with hyperammonemia. Patient did not have any active bleeding during assessment and there was only some dried blood around patient's mouth and on his chest mostly from the bloody emesis episode he had in the ED. 05/15/24: There were 2 rapid responses this morning for large bloody bowel movement. His hemoglobin in was 5.8 and he received 4 units of PRBC , the repeat hb is 6, we willl give him additional 3 Units of PRBC. he received 1 units of prbc and 1Unit of FFP . we will give him 1 gm of calcium carbonate. Dr calabrese is planning to do EGD today around 11 am, he came to evulate the patient, he could not pass the EGD probe because his jaw was clenched and was difficult to open his mount , so decision was made to intubate him . 2 mg of ativa, rocurium and fentanyl was used . . started him on albumin of possible HRS . and will monitor his kidney function . Dr calabrese did EGD which showed diffuse blood oozing from everywhere and he could not clipped it, this patient will need TIPS and transfer to higher center. 05/15/2024. Patient was seen and examined at bedside. Overnight patient's hemoglobin dropped to 8.5, and has a round of PRBC, platelets, FFP was given. Repeat CBC in the morning revealed hemoglobin of 10, hematocrit 27.7. Will continue closely monitor CBC. Overnight patient had 415 mL of NG tube suction, 1 bowel movement. Patient repeat ABG revealed respiratory alkalosis with pH of 7.49, pCO2 27, respiratory rate was decreased to 12, will follow-up with repeat ABG. Today patient had a GPS score of 3T, was not responding to sternal rub, did not respond to bilateral lower and upper extremity pain stimuli. Overnight patient was given 1 L of LR, will continue support with vasopressin, continue Precedex, patient had arterial and central line placement. Current management wean off from pressors as tolerates, we will continue lactulose, added rifaximin, continue assessing mental status. Multiple hospitals, including [place] and [facility], have declined to accept the transfer of the patient, citing concerns that the TIPS procedure would pose too significant a risk. These institutions have expressed that, given the patient?s current condition, proceeding with the procedure would be deemed too dangerous at this time. TRansfer order was DC. 05/16/24: Patient was seen and examined at bedside. No acute overnight events. Labs and vitals are reviewed, patient hemoglobin is stable, currently 8.9, patient had 1 episode of bowel movement. Patient yesterday was breathing over the vent. he was placed on pressure support 5/5, repeat gas revealed respiratory alkalosis. Patient GCS score is 3T, currently ready for SBT trial. Will continue lactulose, frequently assess mentation. Comprehensive panel revealed hypokalemia of 2.8, hyponatremia 152, with free water deficit of 3.1 with goals of correction 10 mEq in first 24-hour. Patient started on free water flushes 70 cc/h with every 4 hour sodium check. Hypokalemia was replaced with 60meq. Will continue sodium check every 4 hours, adjust free water flushes accordingly. GI was contacted, patient will have another EGD today. Hepatorenal ignacio, patient kidney function a little bit improved, still on octreotide and albumin, creatinine down from 2.6 to 2.3, patient is having good urine output. Will continue closely monitor kidney function. Exam Vital Signs Temp Pulse Resp BP Pulse Ox O2 Del Method O2 Flow Rate 97.1 F 67 35 H 166/61 H 98 Mechanical Ventilation 3 05/17/24 04:00 05/17/24 10:08 05/16/24 07:30 05/17/24 10:08 05/17/24 10:08 05/17/24 00:00 05/16/24 03:05 FiO2 40 05/17/24 10:08 Narrative Exam GENERAL:Severly icteric Ill looking man,Currently intubated and MV HEENT: Normocephalic, atraumatic. Pupils are equal and reactive. icteric sclera, teeth loose with dryed blood in mucosa. RIJ noted , dressing clean and dry. NECK: Supple, nontender, no JVD CARDIOVASCULAR: Heart regular rhythm & rate. S1/S2. no murmur or gallop rub or extra beats. LUNGS: Clear to auscultation bilaterally with symmetrical chest rise. No laboring tachypnea or wheezing. No intercostal subcostal retraction. No rales and no rhonchi. ABDOMEN: Distended Active and normal bowel sounds. EXTREMITIES/skin : Icteric , smill necrotic area around right big toe . Left Art line, dressing clean and dry NEURO: Intubated and MV PSYCHIATRIC: Intubated and MV Objective Labs 05/17/24 07:41 05/17/24 05:29 Labs: Laboratory Results - last 24 hr 05/16/24 05/16/24 05/16/24 11:34 13:34 14:20 WBC RBC Hgb 8.7 L Hct 24.5 L MCV MCH MCHC RDW Std Deviation Plt Count Neut % (Auto) Lymph % (Auto) Duc[place]ne % (Auto) Eos % (Auto) Baso % (Auto) Neut # (Auto) Lymph # (Auto) Duc[place]ne # (Auto) Eos # (Auto) Baso # (Auto) Immature Gran # (Auto) Absolute Nucleated RBC Immature Gran % Nucleated RBC % PT INR Puncture Site Arterial Line Arterial Line ABG pH 7.49 H 7.52 H ABG pCO2 27 L 26 L ABG pO2 173 H 160 H ABG HCO3 21 21 ABG O2 Saturation 100 H 100 H ABG Base Excess -2 -1 FiO2 45 45 Sodium Potassium Chloride Carbon Dioxide Anion Gap BUN Creatinine Estim Creat Clear Calc eGFR BUN/Creatinine Ratio Glucose Calculated Osmolality Lactic Acid 3.1 H Calcium Corrected Calcium Phosphorus Magnesium Total Bilirubin AST ALT Alkaline Phosphatase Total Protein Albumin Globulin Albumin/Globulin Ratio Random Vancomycin Misc Test Result 05/16/24 05/16/24 05/16/24 18:35 19:17 21:53 WBC RBC Hgb 9.1 L Hct 25.6 L MCV MCH MCHC RDW Std Deviation Plt Count Neut % (Auto) Lymph % (Auto) Duc[place]ne % (Auto) Eos % (Auto) Baso % (Auto) Neut # (Auto) Lymph # (Auto) Duc[place]ne # (Auto) Eos # (Auto) Baso # (Auto) Immature Gran # (Auto) Absolute Nucleated RBC Immature Gran % Nucleated RBC % PT INR Puncture Site Arterial Line Arterial Line ABG pH 7.55 H 7.55 H ABG pCO2 25 L 25 L ABG pO2 201 H D 206 H ABG HCO3 21 22 ABG O2 Saturation 100 H 100 H ABG Base Excess 0 0 FiO2 45 45 Sodium Potassium Chloride Carbon Dioxide Anion Gap BUN Creatinine Estim Creat Clear Calc eGFR BUN/Creatinine Ratio Glucose Calculated Osmolality Lactic Acid 2.7 H Calcium Corrected Calcium Phosphorus Magnesium Total Bilirubin AST ALT Alkaline Phosphatase Total Protein Albumin Globulin Albumin/Globulin Ratio Random Vancomycin Misc Test Result 05/17/24 05/17/24 05/17/24 00:30 00:30 00:30 WBC RBC Hgb Cancelled 8.8 L Hct Cancelled 25.0 L MCV MCH MCHC RDW Std Deviation Plt Count Neut % (Auto) Lymph % (Auto) Duc[place]ne % (Auto) Eos % (Auto) Baso % (Auto) Neut # (Auto) Lymph # (Auto) [place]ne # (Auto) Eos # (Auto) Baso # (Auto) Immature Gran # (Auto) Absolute Nucleated RBC Immature Gran % Nucleated RBC % PT INR Puncture Site ABG pH ABG pCO2 ABG pO2 ABG HCO3 ABG O2 Saturation ABG Base Excess FiO2 Sodium Potassium Chloride Carbon Dioxide Anion Gap BUN Creatinine Estim Creat Clear Calc eGFR BUN/Creatinine Ratio Glucose Calculated Osmolality Lactic Acid Cancelled Calcium Corrected Calcium Phosphorus Magnesium Total Bilirubin AST ALT Alkaline Phosphatase Total Protein Albumin Globulin Albumin/Globulin Ratio Random Vancomycin Misc Test Result 05/17/24 05/17/24 05:29 07:41 WBC 14.6 H RBC 3.10 L Hgb 8.9 L Hct 25.9 L MCV 84 MCH 28.7 MCHC 34.4 RDW Std Deviation 48.8 H Plt Count 69 L Neut % (Auto) 79 Lymph % (Auto) 7 L Duchesne % (Auto) 8 Eos % (Auto) 1 Baso % (Auto) 0 Neut # (Auto) 11.5 H Lymph # (Auto) 1.1 Duchesne # (Auto) 1.1 H Eos # (Auto) 0.1 Baso # (Auto) 0.0 Immature Gran # (Auto) 0.82 H Absolute Nucleated RBC 0.05 H Immature Gran % 6 H Nucleated RBC % 0 PT 21.4 H INR 2.1 H Puncture Site ABG pH ABG pCO2 ABG pO2 ABG HCO3 ABG O2 Saturation ABG Base Excess FiO2 Sodium 152 H Potassium 2.8 L D Chloride 115 H Carbon Dioxide 22.3 Anion Gap 15 BUN 85 H Creatinine 2.3 H Estim Creat Clear Calc 31.9 L eGFR 32 L BUN/Creatinine Ratio 37 H Glucose 152 H Calculated Osmolality 330 H Lactic Acid 2.7 H 2.8 H Calcium 8.4 Corrected Calcium 9.4 Phosphorus 4.0 Magnesium 2.5 Total Bilirubin 26.1 H* D AST 335 H ALT 204 H Alkaline Phosphatase 104 Total Protein 4.6 L Albumin 2.7 L Globulin 1.9 L Albumin/Globulin Ratio 1.4 Random Vancomycin 11.7 Misc Test Result Platelets confirmed ABG Interpretation ABG results: 05/15/24 05/15/24 05/15/24 08:45 14:25 16:08 ABG pH 7.31 L 7.04 L* D 7.22 L D ABG pCO2 20 L 58 H D 35 D ABG pO2 116 H 330 H D 63 L D ABG HCO3 10 L 16 L 14 L ABG O2 Saturation 98 99 H 89 L ABG Base Excess -15 L -15 L -13 L 05/15/24 05/16/24 05/16/24 19:03 04:05 05:05 ABG pH 7.27 L 7.43 D 7.48 H ABG pCO2 27 L 56 H D 23 L D ABG pO2 85 D 160 H D 191 H D ABG HCO3 12 L 37 H 17 L ABG O2 Saturation 96 101 H 100 H ABG Base Excess -13 L 11 H -5 L 05/16/24 05/16/24 05/16/24 11:34 14:20 18:35 ABG pH 7.49 H 7.52 H 7.55 H ABG pCO2 27 L 26 L 25 L ABG pO2 173 H 160 H 201 H D ABG HCO3 21 21 21 ABG O2 Saturation 100 H 100 H 100 H ABG Base Excess -2 -1 0 05/16/24 21:53 ABG pH 7.55 H ABG pCO2 25 L ABG pO2 206 H ABG HCO3 22 ABG O2 Saturation 100 H ABG Base Excess 0 Quality Measures Quality Measures none Assessment & Plan Assessment Current Active Medications: Generic Name Dose Route Start Last Admin Trade Name Freq PRN Reason Stop Dose Admin Acetaminophen 650 mg 05/15/24 01:17 Acetaminophen Supp 650 Mg Supp RI 06/14/24 01:16 Q6HR PRN pain and Fever > 100.4 Dextrose 25 ml 05/15/24 01:22 Dextrose 50%-Water Inj 50 Ml Syringe IV 06/14/24 01:21 Q15MIN PRN BG 50-70 responsive npo pt Dextrose 50 ml 05/15/24 01:22 Dextrose 50%-Water Inj 50 Ml Syringe IV 06/14/24 01:21 Q15MIN PRN BG <50 OR BG <70 & pt unresponsive Glucagon 1 mg 05/15/24 01:22 Glucagon Inj 1 Mg Vial IM Q15MIN PRN BG <70, and no IV access Octreotide Acetate 1,000 mcg/ 102 mls @ 5.1 mls/hr 05/15/24 18:30 05/16/24 19:37 Sodium Chloride IV 05/19/24 22:22 50 mcg/hr .Q20H SREE 5.1 mls/hr Administration Protocol 50 MCG/HR Albumin Human 25 gm in 100 mls @ 100 mls/hr 05/15/24 07:49 05/17/24 10:03 Albuminar-25 Ivpb IV 05/18/24 07:48 100 mls/hr QDAY SREE Administration Piperacillin/Tazobactam/Dextrose 3.375 gm in 50 mls @ 12.5 mls/hr 05/15/24 14:00 05/17/24 06:36 Zosyn IV 05/22/24 13:59 12.5 mls/hr Q8HR SREE Administration Protocol Dexmedetomidine/Sodium Chloride 200 mcg in 50 mls @ 3.763 mls/hr 05/15/24 12:26 05/17/24 06:37 Precedex Ivpb IV 06/14/24 12:25 0.4 mcg/kg/hr .[id number] PRN 7.525 mls/hr Per PROTOCOL Administration Protocol 0.2 MCG/KG/HR Norepinephrine/Dextrose 8 mg in 250 mls @ 6.966 mls/hr 05/15/24 20:25 05/17/24 06:00 Levophed In D5w 8mg/250ml IV 06/14/24 20:24 0.07 mcg/kg/min .Q24H PRN 9.752 mls/hr PER PROTOCOL Titration Protocol 0.05 MCG/KG/MIN Potassium Chloride 10 meq in 100 mls @ 100 mls/hr 05/17/24 10:26 Kcl Ivpb IV 05/17/24 16:25 Q1H SREE Albumin Human 12.5 gm in 50 mls @ 50 mls/hr 05/17/24 10:28 Albuminar-25 Ivpb IV 05/17/24 11:27 X1 ONE Insulin Human Lispro 0 unit 05/15/24 06:00 05/17/24 06:41 Insulin Lispro (Admelog) 1 Unit/0.01 Ml Unit SC 06/14/24 05:59 Not Given Q6HR SREE Protocol Lactulose 30 gm 05/16/24 15:00 05/17/24 06:36 Lactulose Syrup 20 Gm/30 Ml Udc NG 06/15/24 13:59 30 gm TID SREE Administration Protocol Ondansetron HCl 4 mg 05/15/24 01:17 05/15/24 05:46 Ondansetron Inj 2 Mg/Ml Inj 2 Ml IV 06/14/24 01:16 4 mg Q6H PRN Administration NAUSEA OR VOMITING Protocol Pantoprazole Sodium 80 mg 05/15/24 21:00 05/17/24 10:04 Pantoprazole Inj 40 Mg Vial IVP 06/14/24 20:59 80 mg BID SREE Administration Pharmacy Consult 1 each 05/15/24 17:30 Vancomycin Pharmacy To Dose 1 Each Each IV 06/14/24 17:29 QDAY PRN CONSULT Rifaximin 550 mg 05/16/24 10:45 05/17/24 10:04 Rifaximin 550 Mg Tablet NG 05/23/24 10:44 550 mg BID SREE Administration Plan 59-year-old male with past medical history of alcohol use disorder, esophageal varices s/p banding, hypertension, hyperlipidemia, DM2, HFpEF (EF 55 to 60%) and biliary dyskinesia was admitted to the hospital on 05/15/2024 for shock, most likely hypovolemic(hemorrhagic class III) combined with a septic shock requiring pressors, and massive blood transfusion due to severe GI bleed 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 GPS score of 3T, frequent mental status reassessment RESPI Intubated and MV Respiratory alkalosis Patient was breathing over the vent .currently on pressure support -Will follow with ABG -Vent setting-PS, 5/5 CVS #mixed hypovolemic(class 3 hemorrhagic shock) +septic shock -Class III hemorrhage involves a 30 to 40 percent blood volume loss, resulting in a significant drop in blood pressure and changes in mental status -he has received massive blood transfusion, calcium was replaced -continue support with pressors, as needed blood products transfusion, monitor, correct accordingly -BC 03/04 +GPC. continue cover with zosyn and vanc -repeat BC pending #history of HTN #History of HLD #HFpEF (55-60%) - Echo showed EF 55-60% GI #Acute GI bleed #Hx of Grade 3 esophageal varices s/p banded (04/28) #Hx of alcohol use disorder ?Patient came in with complaints of black starry stools and bloody emesis witnessed in the ED ?Initial hemoglobin was 5.8 -FOBT positive - EGD done during on 04/28/2024 showed grade 3 esophageal varices which were banded as well as erythematous mucosa in the stomach. -patient received 5 U prbc , 1 U of FFP and 1U of platelets till now -Dr. Calabrese scoped the patient and showed 1+ esophageal varices and bleeding were going everywhere and was not large enough for band ligation , and the band attenp failed ,and he will need transfer for TIPS shunt. -will continue octeotride and blood products . -05/16:Multiple hospitals, including [place] and [facility], have declined to accept the transfer of the patient, citing concerns that the TIPS procedure would pose too significant a risk. These institutions have expressed that, given the patient?s current condition, proceeding with the procedure would be deemed too dangerous at this time, he is not stable as well -05/17: Dr. Calabrese will try to do EGD today again #Cirrhosis #Hyperbilirubinemia #Hyperammonemia #Hypoalbuminemia #Ascites #SBP? - Patient A/Ox1 (only to person)on admission , likely due to hyperammonemia in the setting of cirrhosis, GCS score was 3T - MELD NA score of 34 point indicating 65-66% mortality - Initial Child-Garcia score of 13 points, Class C - Liver function on addmision AST 76, ALT 84, alkaline phosphatase 152, ammonia 142, T bilirubin 23 - INR 2.2 and PT 22.6 -Continue octreotide drip [05/14/2024?] ?Continue Protonix -Continue Zosyn -Patient will need TIPS shunt, however tranfer was declined from multiple institutions due to high risk as well as patient not being stable. RENAL #JEANIE #Hypoalbuminemia #?Hepato renal syndrome - Initial creatinine of 2.6 and BUN of 62 compared to patient's baseline which is currently around 1 -Albumin 2 -Most likely prerenal in the setting of GI bleed versus due to hepatorenal syndrome -Albumin 75 g x 1, will follow 25% albumin:?IV:?Initial: 1 g/kg daily for 2 days (maximum: 100 g/day), followed by 20 to 50 g daily until clinical outcome is achieved -Sanchez in place -Avoid nephrotoxic agents -Renally dose medication -Will continue to monitor # Pure high anion gap metabolic acidosis-resolved(Patient had HAGMA likley secondary to lactic acidosis likely due to inability to clear lactic acid ) #Lactic acidosis improving -delta gap was 1.5 -Will trend lactic acid -Will follow up on Abg #hypernatremia Most likely secondary due to dehydration, patient has been n.p.o., was intermittent NG suction Today sodium level 152, free water deficit about 4 L Goal is to correct sodium by 10 in the first 24-hour -Free water flushes started through NG tube is 70 cc/h -Will monitor every 4 hours sodium checks, avoid rapid correction, adjust free water flushes accordingly #Hyperkalemia -Replace -Monitor replace as needed ENDO #DM2 -A1c 6.7% on 04/2024 -ISS - Hypoglycemia protocol ordered ID #Sepsis unknown source DDX. sbp vs gps bacteremia 1/2 bottles for positive for GPC -Continue coverage with Zosyn and vancomycin we will obtain peritoneal fluid analysis once patient is more stable -f/u with repeat BC Heme #DIC -ISTH criteria for DIC 5 points - compatible with DIC -DIC panel, after cryoprecipitate use PT 21.1, INR 2, APTT 40.9, fibrinogen 1 6, PT eval 921 -follow up on repeat DIC pannel-improved #Acute blood loss anemia Patient received multiple rounds of blood product transfusion -Continue monitor transfuse if hemoglobin less than 7 -H&H every 6 hours Disposition:Intubated in ICU , MV, pressors Diet and fluids:NPO, prbc , ffp , platelets as needed DVT prophylaxis:None ,scd GI prophylaxis:protonix CODE STATUS:Full code Patient care was discussed with attending physician Dr. Franc Banks MD PGY-2
--- NOTE | 2024-05-17 11:30 | PC.DIETICIAN ---
Nutrition prescription If EN is indicated, consider: Vital 1.2 at 20 ml/hr via OG/NG tube by pump. Advance 10 ml every 8 hrs to goal rate of 60 ml/hr x 24 hrs. If no IV fluids, water flushes of 25 ml/hr (or per MD).
[2024-05-17 11:42] LABS: Base Excess 0 (-3-3); HCO3 22 mEq/L (20-26); Inspired Oxygen, FIO2 35 %; O2 Saturation 100 % (91-98); PCO2 26 mmHg (32.0-48.0); PO2 177 mmHg (83-108); pH, Arterial 7.54 (7.35-7.45)
[2024-05-17 11:43] LABS: Hematocrit 26.3 % (41.0-53.0); Hemoglobin 9.2 g/dL (13.5-16.0)
[2024-05-17 11:44] LABS: Allen Test Not Performed; Puncture Site Arterial Line
--- NOTE | 2024-05-17 12:15 | PD.INTPROG ---
Documentation for date of: 05/17/24 Subjective Subjective Interval history: This is a 59yo M admitted to the ICU for GIB and hepatic encephalopathy requiring intubation for airway protection. He has a h/o ETOH cirrhosis and esophageal varices s/p banding last month. He presented with active bleed and was seen by GI. EGD was done and showed diffuse oozing from the stomach with no clear ulcer and no obvious bleed from varices. He has been transfused multiple units of PRBCs, FFP, PLT and given lts of IVF. Overnight he became hypotensive despite adequate fluid resucitation and was started on levophed. Overnight continued with good UOP and had a drop in his Hb. This morning he remains unresponsive. 05/17- no acute overnight events, good UOP, afebrile, no further drop in h/h, remains with GCS 3T Critical Care Note Critical care time (min.): 40 Exam Vital Signs Temp Pulse Resp BP Pulse Ox O2 Del Method O2 Flow Rate 97.1 F 67 35 H 166/61 H 98 Mechanical Ventilation 3 05/17/24 04:00 05/17/24 10:08 05/16/24 07:30 05/17/24 10:08 05/17/24 10:08 05/17/24 00:00 05/16/24 03:05 FiO2 40 05/17/24 10:08 Narrative Exam Gen- NAD, unresponsive, GCS 3T, nl body habitus HEENT- NC/AT, mucosa dry, sclera icteric, PERRL, ETT/OGT in place Chest- LCTAB, HRRR, no increase in WOB Abd- distended, s/nt/bs+ Ext- edema, pulses palp, no clubbing, no mottling, no withdrawal to pain Vent PSV Drips octreotide, precedex Physical Exam Completion Physical Exam Complete?: Yes 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 05/17/24 07:41 05/17/24 05:29 Labs: Laboratory Results - last 24 hr 05/16/24 05/16/24 05/16/24 13:34 14:20 18:35 WBC RBC Hgb 8.7 L Hct 24.5 L MCV MCH MCHC RDW Std Deviation Plt Count Neut % (Auto) Lymph % (Auto) Andrews % (Auto) Eos % (Auto) Baso % (Auto) Neut # (Auto) Lymph # (Auto) Andrews # (Auto) Eos # (Auto) Baso # (Auto) Immature Gran # (Auto) Absolute Nucleated RBC Immature Gran % Nucleated RBC % PT INR Puncture Site Arterial Line Arterial Line ABG pH 7.52 H 7.55 H ABG pCO2 26 L 25 L ABG pO2 160 H 201 H D ABG HCO3 21 21 ABG O2 Saturation 100 H 100 H ABG Base Excess -1 0 FiO2 45 45 Sodium Potassium Chloride Carbon Dioxide Anion Gap BUN Creatinine Estim Creat Clear Calc eGFR BUN/Creatinine Ratio Glucose Calculated Osmolality Lactic Acid 3.1 H Calcium Corrected Calcium Phosphorus Magnesium Total Bilirubin AST ALT Alkaline Phosphatase Total Protein Albumin Globulin Albumin/Globulin Ratio Random Vancomycin Misc Test Result 05/16/24 05/16/24 05/17/24 19:17 21:53 00:30 WBC RBC Hgb 9.1 L Cancelled Hct 25.6 L MCV MCH MCHC RDW Std Deviation Plt Count Neut % (Auto) Lymph % (Auto) Andrews % (Auto) Eos % (Auto) Baso % (Auto) Neut # (Auto) Lymph # (Auto) Andrews # (Auto) Eos # (Auto) Baso # (Auto) Immature Gran # (Auto) Absolute Nucleated RBC Immature Gran % Nucleated RBC % PT INR Puncture Site Arterial Line ABG pH 7.55 H ABG pCO2 25 L ABG pO2 206 H ABG HCO3 22 ABG O2 Saturation 100 H ABG Base Excess 0 FiO2 45 Sodium Potassium Chloride Carbon Dioxide Anion Gap BUN Creatinine Estim Creat Clear Calc eGFR BUN/Creatinine Ratio Glucose Calculated Osmolality Lactic Acid 2.7 H Calcium Corrected Calcium Phosphorus Magnesium Total Bilirubin AST ALT Alkaline Phosphatase Total Protein Albumin Globulin Albumin/Globulin Ratio Random Vancomycin Misc Test Result 05/17/24 05/17/24 05/17/24 00:30 00:30 05:29 WBC 14.6 H RBC 3.10 L Hgb 8.8 L 8.9 L Hct Cancelled 25.0 L 25.9 L MCV 84 MCH 28.7 MCHC 34.4 RDW Std Deviation 48.8 H Plt Count 69 L Neut % (Auto) 79 Lymph % (Auto) 7 L Andrews % (Auto) 8 Eos % (Auto) 1 Baso % (Auto) 0 Neut # (Auto) 11.5 H Lymph # (Auto) 1.1 Andrews # (Auto) 1.1 H Eos # (Auto) 0.1 Baso # (Auto) 0.0 Immature Gran # (Auto) 0.82 H Absolute Nucleated RBC 0.05 H Immature Gran % 6 H Nucleated RBC % 0 PT 21.4 H INR 2.1 H Puncture Site ABG pH ABG pCO2 ABG pO2 ABG HCO3 ABG O2 Saturation ABG Base Excess FiO2 Sodium 152 H Potassium 2.8 L D Chloride 115 H Carbon Dioxide 22.3 Anion Gap 15 BUN 85 H Creatinine 2.3 H Estim Creat Clear Calc 31.9 L eGFR 32 L BUN/Creatinine Ratio 37 H Glucose 152 H Calculated Osmolality 330 H Lactic Acid Cancelled 2.7 H Calcium 8.4 Corrected Calcium 9.4 Phosphorus 4.0 Magnesium 2.5 Total Bilirubin 26.1 H* D AST 335 H ALT 204 H Alkaline Phosphatase 104 Total Protein 4.6 L Albumin 2.7 L Globulin 1.9 L Albumin/Globulin Ratio 1.4 Random Vancomycin 11.7 Misc Test Result Platelets confirmed 05/17/24 05/17/24 07:41 11:34 WBC RBC Hgb 9.2 L Hct 26.3 L MCV MCH MCHC RDW Std Deviation Plt Count Neut % (Auto) Lymph % (Auto) Andrews % (Auto) Eos % (Auto) Baso % (Auto) Neut # (Auto) Lymph # (Auto) Andrews # (Auto) Eos # (Auto) Baso # (Auto) Immature Gran # (Auto) Absolute Nucleated RBC Immature Gran % Nucleated RBC % PT INR Puncture Site Arterial Line ABG pH 7.54 H ABG pCO2 26 L ABG pO2 177 H D ABG HCO3 22 ABG O2 Saturation 100 H ABG Base Excess 0 FiO2 35 Sodium Potassium Chloride Carbon Dioxide Anion Gap BUN Creatinine Estim Creat Clear Calc eGFR BUN/Creatinine Ratio Glucose Calculated Osmolality Lactic Acid 2.8 H Calcium Corrected Calcium Phosphorus Magnesium Total Bilirubin AST ALT Alkaline Phosphatase Total Protein Albumin Globulin Albumin/Globulin Ratio Random Vancomycin Misc Test Result Assessment & Plan Additional Plan Additional Plan: In summary this is a 59yo M admitted to the ICU with hepatic encephalopathy 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 Bcx with GPC and currently on abx. LA is trending back down. bedside echo shows adequate contractility and no pericardial effusion, no evidence of obstruction or cardiogenic etiologies. on levo -Levophed needs decreasing -Official ID of GPC's are still pending, follow-up blood cultures have been drawn HFpEF- hold any diuresis for now Resp Acute hypoxic resp failure- intubated, fu on ABG , on MV, fu with CXR. - vent adjusted - unable to ween due to mental status - currently with resp alkalosis , on PSV 0/5 Renal AGMA- 2/2 LA and improving JEANIE- ? prerenal v hepatorenal - on albumin and octreotide - good UOP - no change in creatinine thus far HypoK-repleted both IV as well as p.o. Will recheck a potassium this afternoon. Anticipate additional losses to loose bowel movements Hypernatremia-started on free water flushes GI Cirrhosis- 2/2 ETOH, on lactulose and rifaximin, d/w Hepatology at [facility] and not a candidate for TIPS - worsening of LFTs today along with elevated TBr - due in part to shock -Patient's T. bili is 26 today GI proph- PPI GIB- PPI q12, octreotide gtt, seen by GI and s/p EGD with no area for banding and no ulcerations, general bleed from gastropathy - mass transfusion, given Ca - GI recs were for eval with transfer -> d/w [facility] who declined transfer as mortality from TIPS at this moment in time would be too high - GI to rescope pt and eval for any site that may still be bleeding Endo stable Heme Leukocytosis- initially reactive in nature , now ? 2/2 sepsis - trending down Anemia- 2/2 GIB, -Has remained stable over the last 24 hours Thrombocytopenia- 2/2 cirrhosis as well as component of dilutional from mass transfusion ID Bacteremia- on vanc/zosyn, fu on repeat cx -GPC yet to be speciated however remarks suggests that it may be a strep -Repeat blood cultures taken case d/w ICU team and transfer team labs, imaging, records reviewed ~40cc min required for eval, exam, review, intervention, discussion and formulation of POC for this critically ill pt at high risk for further and ongoing decompensation Provider Notation Provider Notation: Although this document has been carefully reviewed, there may still be some phonetic and other typographical errors. These errors are purely grammatical due to imperfections in the software program and should not be construed in any way to compromise the substance of the patient's medical care during this visit. Thank you for the opportunity and privilege in assisting you with this patient's care and management.
[2024-05-17] MEDS: POTASSIUM CHL 10 mEq IVPB 10 MEQ/100 ML BAG 100 MEQ IV ×6 (12:27→14:44)
--- NOTE | 2024-05-17 13:00 | PC.SS ---
CURRENCY COUNTER received phone call from [facility] staff, Lucille ; confirming patient?s admission to ICU.? [facility] member informed CURRENCY COUNTER that attempt was underway to assist the patient?s son, Yuri Villarreal; with opportunity to obtain leave to conduct bedside visit.? CURRENCY COUNTER provided case #[id number].?
[2024-05-17] MEDS: POTASSIUM CHLORIDE 20 mEq TABCR 40 MEQ PO (13:06)
[2024-05-17] MEDS: ALBUMIN HUMAN 25% IVPB 12.5 GM/50 ML BTL IV (13:23)
[2024-05-17 14:37] LABS: Hematocrit 24.9 % (41.0-53.0)
[2024-05-17 14:40] LABS: Hemoglobin 8.6 g/dL (13.5-16.0)
--- NOTE | 2024-05-17 15:28 | XR_ITS ---
Examination: AP chest single view Technique one AP portable semiupright chest single view Exam date and time: May 17, 2024 1505 hours Comparison 03/18/2024 INDICATIONS: Hypoxic respiratory failure, postintubation, post central line placement, post orogastric tube placement FINDINGS: Mild pneumonia left base Normal heart size Endotracheal tube tip 5.6 cm above vonda Orogastric tube in stomach, the tip is below the level film Right internal jugular central line tip right atrium no pneumothorax IMPRESSION: Mild pneumonia left base, consider aspiration pneumonia
[2024-05-17] MEDS: OCTREOTIDE ACET INJ 1,000 MCG in SODIUM CHLORIDE 0.9% 100 ML 5.1 MCG IV (15:30)
[2024-05-17] MEDS: Norepinephrine/D5W 8mg/250ml 8 MG/250 ML BAG 6.966 MG IV (15:36)
[2024-05-17 16:00] LABS: Sodium 153 mMol/L (136-145)
[2024-05-17] MEDS: POTASSIUM CHLORIDE 20 mEq TABCR PO (17:24)
[2024-05-17 20:11] LABS: Sodium 152 mMol/L (136-145)
[2024-05-17] MEDS: MIDAZOLAM INJ 1 MG/ML VIAL 2 ML 2 MG IV (21:15)
[2024-05-17] MEDS: DEXMEDETOMIDINE 200 MCG IVPB 200 MCG/50 ML BOTTLE IV (23:00)
[2024-05-18] VITALS (154 sets, daily range): BP systolic 0–238; BP diastolic 0–108; PULSE 63–102; RESP 10–29; TEMP 36.3–37.1; O2SAT 92–99; BMI 26.9
[2024-05-18 01:00] LABS: Hematocrit 25.2 % (41.0-53.0); Hemoglobin 8.7 g/dL (13.5-16.0)
[2024-05-18 01:12] LABS: Sodium 158 mMol/L (136-145)
[2024-05-18] MEDS: LACTULOSE SYRUP 20 GM/30 ML UDC 30 GM NG (05:02)
[2024-05-18] MEDS: PIPER/TAZO 3.375 GM PREMIX 3.375 GM/50 ML BAG IV ×2 (05:03→13:07)
[2024-05-18 06:10] LABS: Basophils % (Auto) 0 % (0-2.5); Eosinophils # (Auto) 0.1 Thou/mm3 (0.0-0.5); Eosinophils % (Auto) 1 % (0-10); Hematocrit 26.9 % (41.0-53.0); Hemoglobin 9.2 g/dL (13.5-16.0); Immature Granulocytes % (Auto) 6 % (0-0); Immature Granulocytes Auto 0.65 Thou/mm3 (0.00-0.00); Lymphocytes # (Auto) 0.8 Thou/mm3 (1.0-4.8); Lymphocytes % (Auto) 6 % (10-50); Mean Corpuscular HGB Conc 34.2 g/dl (31.0-37.0); Mean Corpuscular Volume 85 fL (80-100); Monocytes # (Auto) 0.9 Thou/mm3 (0.0-0.8); Monocytes % (Auto) 8 % (0-12); Neutrophils # (Auto) 9.5 Thou/mm3 (1.8-7.7); Neutrophils % (Auto) 80 % (37-80); Nucleated Red Blood Cell # 0.05 Thou/mm3 (0.00-0.00); Nucleated Red Blood Cell % 0 /100 WBC (0); RDW Standard Deviation 50.1 fL (35.1-43.9); Red Blood Count 3.17 Miln/mm3 (4.50-5.90); White Blood Count 11.9 Thou/mm3 (3.8-10.6)
[2024-05-18 06:16] LABS: INR 1.9 (0.9-1.3); Prothrombin Time 19.5 Seconds (9.0-12.2)
[2024-05-18 06:18] LABS: Platelet Count 48 Thou/mm3 (140-440)
[2024-05-18 06:35] LABS: Slide Review Platelets confirmed
[2024-05-18 06:39] LABS: Alanine Aminotransferase 185 U/L (10-49); Albumin, Serum 3.2 gm/dL (3.5-5.0); Albumin/Globulin Ratio 1.6 (1.2-2.2); Alkaline Phosphatase 105 U/L (46-116); Anion Gap 14 (7-16); Aspartate Amino Transferase 232 U/L (0-34); BUN/Creatinine Ratio 38 Ratio (12-20); Blood Urea Nitrogen 68 mg/dL (9-23); Calcium 8.9 mg/dL (8.3-10.6); Calcium (Corrected) 9.5 mg/dL (8.5-10.1); Chloride 121 mMol/L (98-107); Creatinine (Component) 1.8 mg/dL (0.6-1.3); Estimated Creatinine Clearance 40.6 mL/min (>60); Glucose 147 mg/dL (74-106); Osmolality,Calculated 333 (275-295); Phosphorous 2.8 mg/dL (2.4-5.1); Sodium 157 mMol/L (136-145); Total Protein 5.2 gm/dL (5.7-8.2); eGFR 43 See Note
[2024-05-18 06:41] LABS: Potassium 2.7 mMol/L (3.4-5.1)
[2024-05-18 08:01] LABS: Hematocrit 27.7 % (41.0-53.0); Hemoglobin 9.5 g/dL (13.5-16.0)
[2024-05-18 08:06] LABS: Sodium 157 mMol/L (136-145)
[2024-05-18] MEDS: PANTOPRAZOLE INJ 40 MG VIAL 80 MG IVP ×2 (08:37→21:17)
[2024-05-18] MEDS: rifaximin 550 MG TABLET NG ×2 (08:38→21:17)
[2024-05-18] MEDS: POTASSIUM CHL 20 mEq IVPB 20 MEQ/100 ML BAG 50 MEQ IV ×4 (08:49→16:24)
--- NOTE | 2024-05-18 10:28 | XR_ITS ---
Examination: CT brain head without contrast. 2-D sagittal coronal reconstructions Date and time of exam:May 18, 2024 1529 hours INDICATIONS: Onset altered mental status today COMPARISON: May 15, 2024 CTDI: vol (mGy):102 DLP: (mGycm):1852 Technique: Multiple CT axial sections of the brain have been obtained, 5 mm slice thickness. Contrast has not been administered. 2-D sagittal, coronal reconstructions have been obtained Low dose protocols were performed. One or more of the following dose reduction techniques were used; automated exposure control, adjustment of the mA and/or KV according to patient size, use of iterative reconstruction technique. Findings: No significant ventricular enlargement. Intra-axial or extra-axial hemorrhage density is not seen. No mass effect or midline shift Basal cisterns are not remarkable. Fourth ventricle is midline. Cranial vault intact. Impression: Negative for acute hemorrhage, mass effect or midline shift As clinically warranted, consider brain MRI follow-up
[2024-05-18] MEDS: VANCOMYCIN/NS 750 MG IVPB 750 MG/150 ML BAG 120 MG IV (10:39)
[2024-05-18] MEDS: LABETALOL INJ 5 MG/ML VIAL 20 ML 10 MG IVP ×3 (11:00→16:23)
--- NOTE | 2024-05-18 11:40 | PD.RESPRO ---
Documentation for date of: 05/18/24 Subjective Subjective Interval history: per HPI : 59-year-old male with past medical history of alcohol use disorder, esophageal varices s/p banding, hypertension, hyperlipidemia, DM2, HFpEF (EF 55 to 60%) and biliary dyskinesia was admitted to the hospital on 05/15/2024 after coming to the ED with complaints of black starry stools and a witnessed bloody emesis. Upon my assessment patient was only able x 1 only to his name. He was unable to provide any history of what events led him to come to the hospital. He was only able to follow some simple commands, but cannot respond to complex questions about history. Most of the history was taken per chart review as patient unable to provide history and tried contacting family, but was unsuccessful. Per chart review patient had been having black starry stools for 4 days and was hypoxic when EMS evaluated the patient. Patient stated that he has not drink alcohol for the past 15 days, but most likely 1 time has passed as he was in the hospital recently for multiple days. At the time of assessment patient's blood pressure was on the lower end, but maintaining a MAP above 65. Patient noted to have an JEANIE likely in the setting of acute blood loss anemia. Patient also had some lactic acidosis along with hyperammonemia. Patient did not have any active bleeding during assessment and there was only some dried blood around patient's mouth and on his chest mostly from the bloody emesis episode he had in the ED. 05/15/24: There were 2 rapid responses this morning for large bloody bowel movement. His hemoglobin in was 5.8 and he received 4 units of PRBC , the repeat hb is 6, we willl give him additional 3 Units of PRBC. he received 1 units of prbc and 1Unit of FFP . we will give him 1 gm of calcium carbonate. Dr calabrese is planning to do EGD today around 11 am, he came to evulate the patient, he could not pass the EGD probe because his jaw was clenched and was difficult to open his mount , so decision was made to intubate him . 2 mg of ativa, rocurium and fentanyl was used . . started him on albumin of possible HRS . and will monitor his kidney function . Dr calabrese did EGD which showed diffuse blood oozing from everywhere and he could not clipped it, this patient will need TIPS and transfer to higher center. 05/16/2024. Patient was seen and examined at bedside. Overnight patient's hemoglobin dropped to 8.5, and has a round of PRBC, platelets, FFP was given. Repeat CBC in the morning revealed hemoglobin of 10, hematocrit 27.7. Will continue closely monitor CBC. Overnight patient had 415 mL of NG tube suction, 1 bowel movement. Patient repeat ABG revealed respiratory alkalosis with pH of 7.49, pCO2 27, respiratory rate was decreased to 12, will follow-up with repeat ABG. Today patient had a GPS score of 3T, was not responding to sternal rub, did not respond to bilateral lower and upper extremity pain stimuli. Overnight patient was given 1 L of LR, will continue support with vasopressin, continue Precedex, patient had arterial and central line placement. Current management wean off from pressors as tolerates, we will continue lactulose, added rifaximin, continue assessing mental status. Multiple hospitals, including [facility] and [facility], have declined to accept the transfer of the patient, citing concerns that the TIPS procedure would pose too significant a risk. These institutions have expressed that, given the patient?s current condition, proceeding with the procedure would be deemed too dangerous at this time. TRansfer order was DC. 05/17/24: Patient was seen and examined at bedside. No acute overnight events. Labs and vitals are reviewed, patient hemoglobin is stable, currently 8.9, patient had 1 episode of bowel movement. Patient yesterday was breathing over the vent. he was placed on pressure support 5/5, repeat gas revealed respiratory alkalosis. Patient GCS score is 3T, currently ready for SBT trial. Will continue lactulose, frequently assess mentation. Comprehensive panel revealed hypokalemia of 2.8, hyponatremia 152, with free water deficit of 3.1 with goals of correction 10 mEq in first 24-hour. Patient started on free water flushes 70 cc/h with every 4 hour sodium check. Hypokalemia was replaced with 60meq. Will continue sodium check every 4 hours, adjust free water flushes accordingly. GI was contacted, patient will have another EGD today. Hepatorenal ignacio, patient kidney function a little bit improved, still on octreotide and albumin, creatinine down from 2.6 to 2.3, patient is having good urine output. Will continue closely monitor kidney function. 05/18/24: Patient was seen and examined at bedside, GCS of 7, mentation slightly improved, patient has a rectal tube placement yesterday, had multiple episodes of BM, was receiving lactulose 30 3 times daily, patient is having a leak around rectal tube, lactulose decreased to 20 3 times daily, will continue frequent assess mentation, patient is off vasopressors, is on pressor support, given the low GCS, patient does not meet extubation criteria, will continue with mechanical ventilation, reassess mentation frequent. CT head and EEG was ordered, will follow-up with the results. GI ignacio patient had EGD done yesterday, which revealed grade 2 esophageal varices, which was banded, patient had a diffuse oozing bleeding. Hemoglobin is stable 9.2, hematocrit 26.9. Patient hypernatremia worsened 152-157. Increased free water flushes from 60 cc/h to 100 cc/h, will have a frequent sodium check. Repeat blood culture prelim is negative, previous 1 was positive for GBS, patient is on vancomycin and Zosyn. After weaning off from Levophed, patient developed rebound hypertension, which was corrected with IV labetalol and hydralazine, hydralazine 25 3 times daily as needed was placed for SBP above 170. Exam Vital Signs Temp Pulse Resp BP Pulse Ox O2 Del Method O2 Flow Rate 98.6 F 95 35 H 187/102 H 98 Mechanical Ventilation 3 05/18/24 08:00 05/18/24 11:00 05/16/24 07:30 05/18/24 11:00 05/18/24 10:17 05/18/24 08:00 05/16/24 03:05 FiO2 35 05/18/24 10:17 Narrative Exam GENERAL:Severly icteric Ill looking man,Currently intubated and MV, GCS of 7 HEENT: Normocephalic, atraumatic. Pupils are equal and reactive. icteric sclera, teeth loose with dryed blood in mucosa. RIJ noted , dressing clean and dry. NECK: Supple, nontender, no JVD CARDIOVASCULAR: Heart regular rhythm & rate. S1/S2. no murmur or gallop rub or extra beats. LUNGS: Clear to auscultation bilaterally with symmetrical chest rise. No laboring tachypnea or wheezing. No intercostal subcostal retraction. No rales and no rhonchi. ABDOMEN: Distended Active and normal bowel sounds. EXTREMITIES/skin : Icteric , small necrotic area around right big toe . Left Art line, dressing clean and dry NEURO: Intubated and MV PSYCHIATRIC: Intubated and MV Objective Labs 05/18/24 12:48 05/18/24 16:21 Labs: Laboratory Results - last 24 hr 05/17/24 05/17/24 05/17/24 07:41 11:34 14:20 WBC RBC Hgb 9.2 L 8.6 L Hct 26.3 L 24.9 L MCV MCH MCHC RDW Std Deviation Plt Count Neut % (Auto) Lymph % (Auto) Bradley % (Auto) Eos % (Auto) Baso % (Auto) Neut # (Auto) Lymph # (Auto) Bradley # (Auto) Eos # (Auto) Baso # (Auto) Immature Gran # (Auto) Absolute Nucleated RBC Immature Gran % Nucleated RBC % PT INR Puncture Site Arterial Line ABG pH 7.54 H ABG pCO2 26 L ABG pO2 177 H D ABG HCO3 22 ABG O2 Saturation 100 H ABG Base Excess 0 FiO2 35 Sodium Potassium Chloride Carbon Dioxide Anion Gap BUN Creatinine Estim Creat Clear Calc eGFR BUN/Creatinine Ratio Glucose Calculated Osmolality Calcium Corrected Calcium Phosphorus Total Bilirubin AST ALT Alkaline Phosphatase Total Protein Albumin Globulin Albumin/Globulin Ratio Random Vancomycin Misc Test Result 05/17/24 05/17/24 05/18/24 15:32 19:05 00:40 WBC RBC Hgb 9.0 L 8.7 L Hct 26.0 L 25.2 L MCV MCH MCHC RDW Std Deviation Plt Count Neut % (Auto) Lymph % (Auto) Bradley % (Auto) Eos % (Auto) Baso % (Auto) Neut # (Auto) Lymph # (Auto) Bradley # (Auto) Eos # (Auto) Baso # (Auto) Immature Gran # (Auto) Absolute Nucleated RBC Immature Gran % Nucleated RBC % PT INR Puncture Site ABG pH ABG pCO2 ABG pO2 ABG HCO3 ABG O2 Saturation ABG Base Excess FiO2 Sodium 153 H 152 H 158 H Potassium Chloride Carbon Dioxide Anion Gap BUN Creatinine Estim Creat Clear Calc eGFR BUN/Creatinine Ratio Glucose Calculated Osmolality Calcium Corrected Calcium Phosphorus Total Bilirubin AST ALT Alkaline Phosphatase Total Protein Albumin Globulin Albumin/Globulin Ratio Random Vancomycin Misc Test Result 05/18/24 05/18/24 05:19 07:30 WBC 11.9 H RBC 3.17 L Hgb 9.2 L 9.5 L Hct 26.9 L 27.7 L MCV 85 MCH 29.0 MCHC 34.2 RDW Std Deviation 50.1 H Plt Count 48 L D Neut % (Auto) 80 Lymph % (Auto) 6 L Bradley % (Auto) 8 Eos % (Auto) 1 Baso % (Auto) 0 Neut # (Auto) 9.5 H Lymph # (Auto) 0.8 L Bradley # (Auto) 0.9 H Eos # (Auto) 0.1 Baso # (Auto) 0.0 Immature Gran # (Auto) 0.65 H Absolute Nucleated RBC 0.05 H Immature Gran % 6 H Nucleated RBC % 0 PT 19.5 H INR 1.9 H Puncture Site ABG pH ABG pCO2 ABG pO2 ABG HCO3 ABG O2 Saturation ABG Base Excess FiO2 Sodium 157 H 157 H Potassium 2.7 L* Chloride 121 H* Carbon Dioxide 22.0 Anion Gap 14 BUN 68 H Creatinine 1.8 H D Estim Creat Clear Calc 40.6 L eGFR 43 L BUN/Creatinine Ratio 38 H Glucose 147 H Calculated Osmolality 333 H Calcium 8.9 Corrected Calcium 9.5 Phosphorus 2.8 Total Bilirubin 32.0 H* D AST 232 H ALT 185 H Alkaline Phosphatase 105 Total Protein 5.2 L Albumin 3.2 L D Globulin 2.0 L Albumin/Globulin Ratio 1.6 Random Vancomycin 10.0 Misc Test Result Platelets confirmed ABG Interpretation ABG results: 05/15/24 05/15/24 05/15/24 08:45 14:25 16:08 ABG pH 7.31 L 7.04 L* D 7.22 L D ABG pCO2 20 L 58 H D 35 D ABG pO2 116 H 330 H D 63 L D ABG HCO3 10 L 16 L 14 L ABG O2 Saturation 98 99 H 89 L ABG Base Excess -15 L -15 L -13 L 05/15/24 05/16/24 05/16/24 19:03 04:05 05:05 ABG pH 7.27 L 7.43 D 7.48 H ABG pCO2 27 L 56 H D 23 L D ABG pO2 85 D 160 H D 191 H D ABG HCO3 12 L 37 H 17 L ABG O2 Saturation 96 101 H 100 H ABG Base Excess -13 L 11 H -5 L 05/16/24 05/16/24 05/16/24 11:34 14:20 18:35 ABG pH 7.49 H 7.52 H 7.55 H ABG pCO2 27 L 26 L 25 L ABG pO2 173 H 160 H 201 H D ABG HCO3 21 21 21 ABG O2 Saturation 100 H 100 H 100 H ABG Base Excess -2 -1 0 05/16/24 05/17/24 21:53 11:34 ABG pH 7.55 H 7.54 H ABG pCO2 25 L 26 L ABG pO2 206 H 177 H D ABG HCO3 22 22 ABG O2 Saturation 100 H 100 H ABG Base Excess 0 0 Quality Measures Quality Measures none Assessment & Plan Assessment Current Active Medications: Generic Name Dose Route Start Last Admin Trade Name Freq PRN Reason Stop Dose Admin Acetaminophen 650 mg 05/15/24 01:17 Acetaminophen Supp 650 Mg Supp LA 06/14/24 01:16 Q6HR PRN pain and Fever > 100.4 Dextrose 25 ml 05/15/24 01:22 Dextrose 50%-Water Inj 50 Ml Syringe IV 06/14/24 01:21 Q15MIN PRN BG 50-70 responsive npo pt Dextrose 50 ml 05/15/24 01:22 Dextrose 50%-Water Inj 50 Ml Syringe IV 06/14/24 01:21 Q15MIN PRN BG <50 OR BG <70 & pt unresponsive Glucagon 1 mg 05/15/24 01:22 Glucagon Inj 1 Mg Vial IM Q15MIN PRN BG <70, and no IV access Piperacillin/Tazobactam/Dextrose 3.375 gm in 50 mls @ 12.5 mls/hr 05/15/24 14:00 05/18/24 05:03 Zosyn IV 05/22/24 13:59 12.5 mls/hr Q8HR SREE Administration Protocol Dexmedetomidine/Sodium Chloride 200 mcg in 50 mls @ 3.763 mls/hr 05/15/24 12:26 05/18/24 00:00 Precedex Ivpb IV 06/14/24 12:25 0.2 mcg/kg/hr .[id number] PRN 3.763 mls/hr Per PROTOCOL Titration Protocol 0.2 MCG/KG/HR Norepinephrine/Dextrose 8 mg in 250 mls @ 6.966 mls/hr 05/15/24 20:25 05/17/24 16:50 Levophed In D5w 8mg/250ml IV 06/14/24 20:24 0 mcg/kg/min .Q24H PRN 0 mls/hr PER PROTOCOL Titration Protocol 0.05 MCG/KG/MIN Octreotide Acetate 1,000 mcg/ 102 mls @ 5.1 mls/hr 05/17/24 13:15 05/17/24 15:30 Sodium Chloride IV 05/19/24 22:22 50 mcg/hr .Q20H SREE 5.1 mls/hr Administration Protocol 50 MCG/HR Vancomycin/Sodium Chloride 750 mg in 150 mls @ 120 mls/hr 05/18/24 10:00 05/18/24 10:39 Vancomycin/Ns 750 Mg Ivpb IV 05/25/24 09:59 120 mls/hr Q24H SREE Administration Potassium Chloride 20 meq in 100 mls @ 50 mls/hr 05/18/24 08:39 05/18/24 10:40 Kcl Ivpb IV 05/18/24 16:38 50 mls/hr Q2H SREE Administration Insulin Human Lispro 0 unit 05/15/24 06:00 05/18/24 05:03 Insulin Lispro (Admelog) 1 Unit/0.01 Ml Unit SC 06/14/24 05:59 Not Given Q6HR [facility] Protocol Lactulose 20 gm 05/18/24 14:00 Lactulose Syrup 20 Gm/30 Ml Udc NG 06/17/24 13:59 TID [facility] Protocol Ondansetron HCl 4 mg 05/15/24 01:17 05/15/24 05:46 Ondansetron Inj 2 Mg/Ml Inj 2 Ml IV 06/14/24 01:16 4 mg Q6H PRN Administration NAUSEA OR VOMITING Protocol Pantoprazole Sodium 80 mg 05/15/24 21:00 05/18/24 08:37 Pantoprazole Inj 40 Mg Vial IVP 06/14/24 20:59 80 mg BID [facility] Administration Pharmacy Consult 1 each 05/15/24 17:30 Vancomycin Pharmacy To Dose 1 Each Each IV 06/14/24 17:29 QDAY PRN CONSULT Rifaximin 550 mg 05/16/24 10:45 05/18/24 08:38 Rifaximin 550 Mg Tablet NG 05/23/24 10:44 550 mg BID SREE Administration Plan 59-year-old male with past medical history of alcohol use disorder, esophageal varices s/p banding, hypertension, hyperlipidemia, DM2, HFpEF (EF 55 to 60%) and biliary dyskinesia was admitted to the hospital on 05/15/2024 for shock, most likely hypovolemic(hemorrhagic class III) combined with a septic shock requiring pressors, and massive blood transfusion due to severe GI bleed 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 -weened off from presedex and pressors. -frequent mental status reassessment -repeat CT head and EEG RESPI Intubated and MV Respiratory alkalosis Patient was breathing over the vent .currently on pressure support -Will follow with ABG -Vent setting-PS, 5/5 -GSC ~7, not meeting extubation criteria, CVS #mixed hypovolemic(class 3 hemorrhagic shock) +septic shock-resolved -Class III hemorrhage involves a 30 to 40 percent blood volume loss, resulting in a significant drop in blood pressure and changes in mental status -he has received massive blood transfusion, calcium was replaced -as needed blood products transfusion, monitor, correct accordingly -BC / +GPC. continue cover with zosyn and vanc -repeat BC pending, prelim in 24 (-) #history of HTN #History of HLD #HFpEF (55-60%) - Echo showed EF 55-60% GI #Acute GI bleed #Hx of Grade 3 esophageal varices s/p banded (04/28) #Hx of alcohol use disorder ?Patient came in with complaints of black starry stools and bloody emesis witnessed in the ED ?Initial hemoglobin was 5.8 -FOBT positive -EGD done during on 04/28/2024 showed grade 3 esophageal varices which were banded as well as erythematous mucosa in the stomach. -patient received 5 U prbc , 1 U of FFP and 1U of platelets till now -Dr. Calabrese scoped the patient and showed 1+ esophageal varices and bleeding were going everywhere and was not large enough for band ligation , and the band attenp failed ,and he will need transfer for TIPS shunt. -will continue octeotride and blood products . -05/16:Multiple hospitals, including [facility] and [facility], have declined to accept the transfer of the patient, citing concerns that the TIPS procedure would pose too significant a risk. These institutions have expressed that, given the patient?s current condition, proceeding with the procedure would be deemed too dangerous at this time, he is not stable as well -05/17:Dr. Calabrese did EGD:Grade 2 esophageal varices, banded, erythematous mucosa in the stomach. Diffuse mucosal oozing of blood in the setting of portal hypertension with blood clots in the proximal body of the stomach, underlying surface could not be evaluated for fundic gastric varices. Per GI recommended to continue octreotide infusion and Protonix, support with blood products #Cirrhosis #Hyperbilirubinemia #Hyperammonemia #Hypoalbuminemia #Ascites #SBP? - Patient A/Ox1 (only to person)on admission , likely due to hyperammonemia in the setting of cirrhosis, GCS score was 3T - MELD NA score of 34 point indicating 65-66% mortality - Initial Child-Garcia score of 13 points, Class C - Liver function on addmision AST 76, ALT 84, alkaline phosphatase 152, ammonia 142, T bilirubin 23 - INR 2.2 and PT 22.6 - Continue octreotide drip [05/14/2024?] ?Continue Protonix -Continue Zosyn -Patient will need TIPS shunt, however tranfer was declined from multiple institutions due to high risk as well as patient not being stable. RENAL #JEANIE #Hypoalbuminemia #Hepatorenal was excluded, as patient respond to albumin and octreotide chalange, cr improved to 1.8 -Initial creatinine of 2.6 and BUN of 62 compared to patient's baseline which is around 1 -Most likely prerenal in the setting of GI bleed versus due to hepatorenal syndrome -Patient received albumin along with octreotide, responded well, patient has JEANIE, hepatorenal syndrome was excluded -Sanchez in place -Avoid nephrotoxic agents -Renally dose medication -Will continue to monitor #Pure high anion gap metabolic acidosis (delta gap was 1.5)-resolved(Patient had HAGMA likley secondary to lactic acidosis likely due to inability to clear lactic acid ) #Lactic acidosis 2.8 -Will trend lactic acid -Will follow up on Abg #hypernatremia Most likely secondary due to dehydration, patient has been n.p.o., was intermittent NG suction Today sodium level 157, worsened since yesterday, 5.4 Goal is to correct sodium by 10 in thein 24 h. -Increase free water flushes to 100 cc/h -Will monitor every 4 hours sodium checks, avoid rapid correction, adjust free water flushes accordingly #hypokalemia-replaced #hyperchloremic hypernatremia Most likely in the setting of severe diarrhea, -Consider D5W IV to replace intravascular volume -Monitor replace as needed ENDO #DM2 -A1c 6.7% on 04/2024 -ISS - Hypoglycemia protocol ordered ID #Sepsis unknown source DDX. sbp vs gps bacteremia 1/2 bottles for positive for GPC -Continue coverage with Zosyn and vancomycin we will obtain peritoneal fluid analysis once patient is more stable -f/u with repeat BC Heme #DIC -ISTH criteria for DIC 5 points - compatible with DIC -DIC panel, after cryoprecipitate use PT 21.1, INR 2, APTT 40.9, fibrinogen 1 6, PT eval 921 -follow up on repeat DIC pannel-improved #Acute blood loss anemia Patient received multiple rounds of blood product transfusion -Continue monitor transfuse if hemoglobin less than 7 -H&H every 6 hours Disposition:Intubated in ICU , MV, on pressure support 5/5 settings Diet and fluids:prbc , ffp , platelets as needed DVT prophylaxis:scd GI prophylaxis:protonix CODE STATUS:Full code Patient care was discussed with attending physician Dr. Franc Banks MD PGY-2
[2024-05-18] MEDS: hydrALAZINE INJ 20 MG/ML VIAL 10 MG IV ×2 (12:20→13:07)
[2024-05-18] MEDS: LACTULOSE SYRUP 20 GM/30 ML UDC NG ×2 (13:07→21:18)
--- NOTE | 2024-05-18 13:18 | RESP.EEG ---
EEG COMPLETED AND READY FOR REVIEW.
[2024-05-18 13:23] LABS: Hematocrit 29.2 % (41.0-53.0); Hemoglobin 10.1 g/dL (13.5-16.0)
[2024-05-18 13:36] LABS: Sodium 156 mMol/L (136-145)
--- NOTE | 2024-05-18 14:56 | ESPR_ITS ---
Documentation for date of: 05/18/24 Subjective Subjective Interval history: This is a 59yo M admitted to the ICU for GIB and hepatic encephalopathy requiring intubation for airway protection. He has a h/o ETOH cirrhosis and esophageal varices s/p banding last month. He presented with active bleed and was seen by GI. EGD was done and showed diffuse oozing from the stomach with no clear ulcer and no obvious bleed from varices. He has been transfused multiple units of PRBCs, FFP, PLT and given lts of IVF. Overnight he became hypotensive despite adequate fluid resucitation and was started on levophed. Overnight continued with good UOP and had a drop in his Hb. This morning he remains unresponsive. 05/17- no acute overnight events, good UOP, afebrile, no further drop in h/h, remains with GCS 3T 05/18- no acute overnight events, patient underwent a repeat EGD with GI and 3 varices were banded. He has had ongoing loose stools requiring a rectal tube. He is afebrile with adequate urinary output Critical Care Note Critical care time (min.): 38 Exam Vital Signs Temp Pulse Resp BP Pulse Ox O2 Del Method O2 Flow Rate 97.3 F 90 35 H 158/80 H 97 Mechanical Ventilation 3 05/18/24 12:01 05/18/24 14:34 05/16/24 07:30 05/18/24 14:34 05/18/24 14:34 05/18/24 12:01 05/16/24 03:05 FiO2 35 05/18/24 14:34 Narrative Exam [id number], jaundiced, normal body habitus, GCS 6 T HEENT-normocephalic, atraumatic, sclera icteric, ET tube and OG tube in place Chest-diminished breath sounds, coarse at bases, heart rate regular rhythmic, no bruits murmurs Abdomen-soft, slightly distended, no rebound or guarding Extremities-edema, pulses palpable, no clubbing or cyanosis, no mottling, jaundice Vent PSV Drips Octreotide Physical Exam Completion Physical Exam Complete?: Yes Objective - Contact Representative Labs 05/18/24 12:48 05/18/24 12:48 Labs: Laboratory Results - last 24 hr 05/17/24 05/17/24 05/18/24 15:32 19:05 00:40 WBC RBC Hgb 9.0 L 8.7 L Hct 26.0 L 25.2 L MCV MCH MCHC RDW Std Deviation Plt Count Neut % (Auto) Lymph % (Auto) [place] % (Auto) Eos % (Auto) Baso % (Auto) Neut # (Auto) Lymph # (Auto) [place] # (Auto) Eos # (Auto) Baso # (Auto) Immature Gran # (Auto) Absolute Nucleated RBC Immature Gran % Nucleated RBC % PT INR Sodium 153 H 152 H 158 H Potassium Chloride Carbon Dioxide Anion Gap BUN Creatinine Estim Creat Clear Calc eGFR BUN/Creatinine Ratio Glucose Calculated Osmolality Calcium Corrected Calcium Phosphorus Total Bilirubin AST ALT Alkaline Phosphatase Total Protein Albumin Globulin Albumin/Globulin Ratio Random Vancomycin Misc Test Result 05/18/24 05/18/24 05/18/24 05:19 07:30 12:48 WBC 11.9 H RBC 3.17 L Hgb 9.2 L 9.5 L 10.1 L Hct 26.9 L 27.7 L 29.2 L MCV 85 MCH 29.0 MCHC 34.2 RDW Std Deviation 50.1 H Plt Count 48 L D Neut % (Auto) 80 Lymph % (Auto) 6 L [place] % (Auto) 8 Eos % (Auto) 1 Baso % (Auto) 0 Neut # (Auto) 9.5 H Lymph # (Auto) 0.8 L [place] # (Auto) 0.9 H Eos # (Auto) 0.1 Baso # (Auto) 0.0 Immature Gran # (Auto) 0.65 H Absolute Nucleated RBC 0.05 H Immature Gran % 6 H Nucleated RBC % 0 PT 19.5 H INR 1.9 H Sodium 157 H 157 H 156 H Potassium 2.7 L* Chloride 121 H* Carbon Dioxide 22.0 Anion Gap 14 BUN 68 H Creatinine 1.8 H D Estim Creat Clear Calc 40.6 L eGFR 43 L BUN/Creatinine Ratio 38 H Glucose 147 H Calculated Osmolality 333 H Calcium 8.9 Corrected Calcium 9.5 Phosphorus 2.8 Total Bilirubin 32.0 H* D AST 232 H ALT 185 H Alkaline Phosphatase 105 Total Protein 5.2 L Albumin 3.2 L D Globulin 2.0 L Albumin/Globulin Ratio 1.6 Random Vancomycin 10.0 Misc Test Result Platelets confirmed Assessment & Plan Additional Plan Additional Plan: In summary this is a 59yo M admitted to the ICU with hepatic encephalopathy and shock a/p [employer] Hepatic Encephalopathy- on lactulose 30 TID - mult bowel movements-> rectal tube in place - no change in mental status - decreased lactulose to 20 today - Despite adequate lactulose patient remains profoundly encephalopathic -Check head CT and EEG today - ? Kernicterus given his Br level CV Shock-now resolved HFpEF- hold any diuresis for now -Good urinary output Resp Acute hypoxic resp failure- intubated, fu on ABG , on MV, fu with CXR. - vent adjusted - unable to ween due to mental status - currently with resp alkalosis , on PSV 0/5 -No change in respiratory status Renal AGMA- 2/2 LA and improving JEANIE- ? prerenal v hepatorenal - on albumin and octreotide - good UOP -Improvement in creatinine HypoK-repleted both IV as well as p.o. Will recheck a potassium this afternoon. Anticipate additional losses to loose bowel movements -Repleted again today Hypernatremia-started on free water flushes -Increase free water -There has been a clog in the NG tube therefore that was present patient was not receiving free water flushes -Has a lot of stool output with fluid loss GI Cirrhosis- 2/2 ETOH, on lactulose and rifaximin, d/w Hepatology at [facility] and not a candidate for TIPS -LFTs trending down - due in part to shock -Patient's T. bili is up to 32 today GI proph- PPI GIB- PPI q12, octreotide gtt, seen by GI and s/p EGD with no area for banding and no ulcerations, general bleed from gastropathy - mass transfusion, given Ca - GI recs were for eval with transfer -> d/w [facility]erson who declined transfer as mortality from TIPS at this moment in time would be too high - GI to rescope pt and eval for any site that may still be bleeding Endo stable Heme Leukocytosis- initially reactive in nature , now ? 2/2 sepsis - trending down Anemia- 2/2 GIB, -Has remained stable over the last 24 hours Thrombocytopenia- 2/2 cirrhosis as well as component of dilutional from mass transfusion -Stable ID Bacteremia- on vanc/zosyn, fu on repeat cx -GPC yet to be speciated however remarks suggests that it may be a strep -Repeat blood cultures taken and are negative to date -Given GPC's will DC Keila case d/w ICU team and transfer team labs, imaging, records reviewed ~38cc min required for eval, exam, review, intervention, discussion and formulation of POC for this critically ill pt at high risk for further and ongoing decompensation Provider Notation Provider Notation: Although this document has been carefully reviewed, there may still be some phonetic and other typographical errors. These errors are purely grammatical due to imperfections in the software program and should not be construed in any way to compromise the substance of the patient's medical care during this visit. Thank you for the opportunity and privilege in assisting you with this patient's care and management.
[2024-05-18] MEDS: hydrALAZINE HCL 25 MG TABLET PO ×2 (15:07→21:17)
[2024-05-18] MEDS: OCTREOTIDE ACET INJ 1,000 MCG in SODIUM CHLORIDE 0.9% 100 ML 5.1 MCG IV (15:08)
[2024-05-18 16:54] LABS: Sodium 156 mMol/L (136-145)
--- NOTE | 2024-05-18 17:21 | PC.SS ---
Update: Patient remains intubated. EGD conducted. Patient transfused, afrebile and rectal tube in place.
--- NOTE | 2024-05-18 18:09 | ESPR_ITS ---
Documentation for date of: 05/18/24 Subjective Subjective Interval history: Patient's status post upper endoscopy with band ligation of the esophageal varices Hemoglobin hematocrit has stabilized around 10.1 and 29.2 Exam Vital Signs Temp Pulse Resp BP Pulse Ox O2 Del Method O2 Flow Rate 98.8 F 72 35 H 175/73 H 98 Mechanical Ventilation 3 05/18/24 16:00 05/18/24 17:45 05/16/24 07:30 05/18/24 17:45 05/18/24 17:45 05/18/24 16:00 05/16/24 03:05 FiO2 35 05/18/24 16:00 Objective Labs 05/18/24 12:48 05/18/24 16:21 Labs: Laboratory Results - last 24 hr 05/17/24 05/18/24 05/18/24 19:05 00:40 05:19 WBC 11.9 H RBC 3.17 L Hgb 9.0 L 8.7 L 9.2 L Hct 26.0 L 25.2 L 26.9 L MCV 85 MCH 29.0 MCHC 34.2 RDW Std Deviation 50.1 H Plt Count 48 L D Neut % (Auto) 80 Lymph % (Auto) 6 L [place] % (Auto) 8 Eos % (Auto) 1 Baso % (Auto) 0 Neut # (Auto) 9.5 H Lymph # (Auto) 0.8 L [place] # (Auto) 0.9 H Eos # (Auto) 0.1 Baso # (Auto) 0.0 Immature Gran # (Auto) 0.65 H Absolute Nucleated RBC 0.05 H Immature Gran % 6 H Nucleated RBC % 0 PT 19.5 H INR 1.9 H Sodium 152 H 158 H 157 H Potassium 2.7 L* Chloride 121 H* Carbon Dioxide 22.0 Anion Gap 14 BUN 68 H Creatinine 1.8 H D Estim Creat Clear Calc 40.6 L eGFR 43 L BUN/Creatinine Ratio 38 H Glucose 147 H Calculated Osmolality 333 H Calcium 8.9 Corrected Calcium 9.5 Phosphorus 2.8 Total Bilirubin 32.0 H* D AST 232 H ALT 185 H Alkaline Phosphatase 105 Total Protein 5.2 L Albumin 3.2 L D Globulin 2.0 L Albumin/Globulin Ratio 1.6 Random Vancomycin 10.0 Misc Test Result Platelets confirmed 05/18/24 05/18/24 05/18/24 07:30 12:48 16:21 WBC RBC Hgb 9.5 L 10.1 L Hct 27.7 L 29.2 L MCV MCH MCHC RDW Std Deviation Plt Count Neut % (Auto) Lymph % (Auto) [place] % (Auto) Eos % (Auto) Baso % (Auto) Neut # (Auto) Lymph # (Auto) [place] # (Auto) Eos # (Auto) Baso # (Auto) Immature Gran # (Auto) Absolute Nucleated RBC Immature Gran % Nucleated RBC % PT INR Sodium 157 H 156 H 156 H Potassium Chloride Carbon Dioxide Anion Gap BUN Creatinine Estim Creat Clear Calc eGFR BUN/Creatinine Ratio Glucose Calculated Osmolality Calcium Corrected Calcium Phosphorus Total Bilirubin AST ALT Alkaline Phosphatase Total Protein Albumin Globulin Albumin/Globulin Ratio Random Vancomycin Misc Test Result Impressions Impression: Upper GI bleed secondary to mucosal oozing of blood combination of esophageal variceal bleeding requiring band ligation Continue current management ABG Interpretation ABG results: 05/15/24 05/15/24 05/15/24 08:45 14:25 16:08 ABG pH 7.31 L 7.04 L* D 7.22 L D ABG pCO2 20 L 58 H D 35 D ABG pO2 116 H 330 H D 63 L D ABG HCO3 10 L 16 L 14 L ABG O2 Saturation 98 99 H 89 L ABG Base Excess -15 L -15 L -13 L 05/15/24 05/16/24 05/16/24 19:03 04:05 05:05 ABG pH 7.27 L 7.43 D 7.48 H ABG pCO2 27 L 56 H D 23 L D ABG pO2 85 D 160 H D 191 H D ABG HCO3 12 L 37 H 17 L ABG O2 Saturation 96 101 H 100 H ABG Base Excess -13 L 11 H -5 L 05/16/24 05/16/24 05/16/24 11:34 14:20 18:35 ABG pH 7.49 H 7.52 H 7.55 H ABG pCO2 27 L 26 L 25 L ABG pO2 173 H 160 H 201 H D ABG HCO3 21 21 21 ABG O2 Saturation 100 H 100 H 100 H ABG Base Excess -2 -1 0 05/16/24 05/17/24 21:53 11:34 ABG pH 7.55 H 7.54 H ABG pCO2 25 L 26 L ABG pO2 206 H 177 H D ABG HCO3 22 22 ABG O2 Saturation 100 H 100 H ABG Base Excess 0 0 Assessment & Plan A&P Narrative Acute upper GI bleed in the form of melena and hematemesis Acute posthemorrhagic anemia in the setting of chronic liver disease with thrombocytopenia and coagulopathy Plan Continue supportive care Patient will have to be intubated to protect the airway as well as he is clenching his mouth and I cannot open his jaw to place bite block I have asked the intensive care unit specialist Dr. Bruner to intubate the patient paralyze him so I can proceed with the procedure she was kind enough to do so Octreotide drip at 50 mcg/h Protonix drip Serial CBC Will follow the patient Time Spent With Patient Time: Total time spent is greater than 50% in coordination of care (as documented) at patient's floor/unit and/or counseling patient: Procedures Arterial Line Size (Gauge): 18
[2024-05-18] MEDS: cloNIDine HCL 0.1 MG TABLET PO (19:28)
[2024-05-18] MEDS: CHOLESTYRAMINE/SUCROSE 1 PKT EA PO (21:17)
[2024-05-18 21:33] LABS: Sodium 158 mMol/L (136-145)
[2024-05-19] VITALS (73 sets, daily range): BP systolic 84–208; BP diastolic 36–92; PULSE 46–87; RESP 9–22; TEMP 35.7–36.3; O2SAT 93–100
[2024-05-19] MEDS: DEXMEDETOMIDINE 200 MCG IVPB 200 MCG/50 ML BOTTLE IV (00:21)
[2024-05-19] MEDS: INSULIN LISPRO (AdmeLOG) 1 UNIT/0.01 ML UNIT SC (00:41)
[2024-05-19] MEDS: cloNIDine HCL 0.1 MG TABLET PO (00:42)
[2024-05-19] MEDS: DEXMEDETOMIDINE 200 MCG IVPB 200 MCG/50 ML BOTTLE 11.288 MCG IV (04:22)
--- NOTE | 2024-05-19 05:00 | XR_ITS ---
Examination: AP chest single view Technique one AP portable semiupright chest single view Exam date and time: May 17, 2024 0336 hrs. Comparison May 17, 2024 Indications: Hypoxia this week Findings: Mild prominence left ventricle Endotracheal tube tip approximately 5.8 cm above vonda Right internal jugular central line tip right atrium, no pneumothorax Minimal atelectasis right base No lobar pneumonia The orogastric tube is in the stomach, the tip is below the level of the film Impression: Endotracheal tube tip approximately 5.8 cm above vonda Minimal atelectasis right base
[2024-05-19 05:28] LABS: Base Excess -2 (-3-3); HCO3 22 mEq/L (20-26); Inspired Oxygen, FIO2 35 %; O2 Saturation 97 % (91-98); PCO2 32 mmHg (32.0-48.0); PO2 80 mmHg (83-108); pH, Arterial 7.44 (7.35-7.45)
[2024-05-19 05:29] LABS: Allen Test Not Performed; Puncture Site Arterial Line
[2024-05-19 05:59] LABS: Basophils # (Auto) 0.1 Thou/mm3 (0.0-0.2); Basophils % (Auto) 0 % (0-2.5); Eosinophils # (Auto) 0.1 Thou/mm3 (0.0-0.5); Eosinophils % (Auto) 1 % (0-10); Hematocrit 26.3 % (41.0-53.0); Immature Granulocytes % (Auto) 6 % (0-0); Immature Granulocytes Auto 0.71 Thou/mm3 (0.00-0.00); Lymphocytes # (Auto) 0.9 Thou/mm3 (1.0-4.8); Lymphocytes % (Auto) 8 % (10-50); Mean Corpuscular HGB Conc 34.2 g/dl (31.0-37.0); Mean Corpuscular Hemoglobin 29.5 pg (25.0-35.0); Mean Corpuscular Volume 86 fL (80-100); Monocytes # (Auto) 0.9 Thou/mm3 (0.0-0.8); Monocytes % (Auto) 8 % (0-12); Neutrophils % (Auto) 77 % (37-80); Nucleated Red Blood Cell # 0.03 Thou/mm3 (0.00-0.00); Nucleated Red Blood Cell % 0 /100 WBC (0); RDW Standard Deviation 52.9 fL (35.1-43.9); Red Blood Count 3.05 Miln/mm3 (4.50-5.90); White Blood Count 11.7 Thou/mm3 (3.8-10.6)
[2024-05-19 06:03] LABS: Platelet Count 55 Thou/mm3 (140-440)
[2024-05-19] MEDS: LACTULOSE SYRUP 20 GM/30 ML UDC NG ×3 (06:03→20:16)
[2024-05-19] MEDS: hydrALAZINE HCL 25 MG TABLET PO (06:04)
[2024-05-19 07:01] LABS: Alanine Aminotransferase 133 U/L (10-49); Albumin, Serum 2.7 gm/dL (3.5-5.0); Albumin/Globulin Ratio 1.3 (1.2-2.2); Alkaline Phosphatase 106 U/L (46-116); Anion Gap 11 (7-16); Aspartate Amino Transferase 118 U/L (0-34); BUN/Creatinine Ratio 37 Ratio (12-20); Blood Urea Nitrogen 55 mg/dL (9-23); Calcium 8.5 mg/dL (8.3-10.6); Calcium (Corrected) 9.5 mg/dL (8.5-10.1); Carbon Dioxide 20.7 mMol/L (20.0-31.0); Chloride 124 mMol/L (98-107); Creatinine (Component) 1.5 mg/dL (0.6-1.3); Estimated Creatinine Clearance 48.7 mL/min (>60); Globulin 2.1 gm/dL (2.3-3.5); Glucose 128 mg/dL (74-106); Magnesium 2.8 mg/dL (1.6-2.6); Osmolality,Calculated 326 (275-295); Phosphorous 3.4 mg/dL (2.4-5.1); Potassium 3.1 mMol/L (3.4-5.1); Sodium 156 mMol/L (136-145); Total Protein 4.8 gm/dL (5.7-8.2); eGFR 53 See Note
[2024-05-19 07:08] LABS: Bilirubin,Total 31.7 mg/dL (0.3-1.2)
--- NOTE | 2024-05-19 09:02 | PC.SS ---
finished goods planner completed initial assessment by chart review. Patient is admitted to ICU and is currently on the mechanical vent. Patient resides at home with friends. Chart review indicates that patient was independent with ADL?s. No documentation indicating that patient requires use of home 02 nor does the patient require the use of DME to assist with ambulation. Patient?s medical decision maker is his son, Benjamin Villarreal Jr. Patient?s p.c.p. is Dr. Bonilla @ [facility]. Patient utilizes [facility] pharmacy services.? No further intervention required at this time. SS will address discharge needs at an appropriate time. Next of kin ?Benjamin Phil Jordan [phone] D/c plan: pending
[2024-05-19] MEDS: PANTOPRAZOLE INJ 40 MG VIAL 80 MG IVP ×2 (09:49→20:16)
[2024-05-19] MEDS: rifaximin 550 MG TABLET NG ×2 (09:49→20:16)
[2024-05-19] MEDS: VANCOMYCIN/NS 750 MG IVPB 750 MG/150 ML BAG 120 MG IV (09:49)
[2024-05-19] MEDS: CHOLESTYRAMINE/SUCROSE 1 PKT EA PO ×2 (09:50→20:16)
[2024-05-19 10:15] LABS: Slide Review Platelets confirmed
--- NOTE | 2024-05-19 10:51 | PD.RESPRO ---
Documentation for date of: 05/19/24 Subjective Subjective Interval history: per HPI : 59-year-old male with past medical history of alcohol use disorder, esophageal varices s/p banding, hypertension, hyperlipidemia, DM2, HFpEF (EF 55 to 60%) and biliary dyskinesia was admitted to the hospital on 05/15/2024 after coming to the ED with complaints of black starry stools and a witnessed bloody emesis. Upon my assessment patient was only able x 1 only to his name. He was unable to provide any history of what events led him to come to the hospital. He was only able to follow some simple commands, but cannot respond to complex questions about history. Most of the history was taken per chart review as patient unable to provide history and tried contacting family, but was unsuccessful. Per chart review patient had been having black starry stools for 4 days and was hypoxic when EMS evaluated the patient. Patient stated that he has not drink alcohol for the past 15 days, but most likely 1 time has passed as he was in the hospital recently for multiple days. At the time of assessment patient's blood pressure was on the lower end, but maintaining a MAP above 65. Patient noted to have an JEANIE likely in the setting of acute blood loss anemia. Patient also had some lactic acidosis along with hyperammonemia. Patient did not have any active bleeding during assessment and there was only some dried blood around patient's mouth and on his chest mostly from the bloody emesis episode he had in the ED. 05/15/24: There were 2 rapid responses this morning for large bloody bowel movement. His hemoglobin in was 5.8 and he received 4 units of PRBC , the repeat hb is 6, we willl give him additional 3 Units of PRBC. he received 1 units of prbc and 1Unit of FFP . we will give him 1 gm of calcium carbonate. Dr calabrese is planning to do EGD today around 11 am, he came to evulate the patient, he could not pass the EGD probe because his jaw was clenched and was difficult to open his mount , so decision was made to intubate him . 2 mg of ativa, rocurium and fentanyl was used . . started him on albumin of possible HRS . and will monitor his kidney function . Dr calabrese did EGD which showed diffuse blood oozing from everywhere and he could not clipped it, this patient will need TIPS and transfer to higher center. 05/16/2024. Patient was seen and examined at bedside. Overnight patient's hemoglobin dropped to 8.5, and has a round of PRBC, platelets, FFP was given. Repeat CBC in the morning revealed hemoglobin of 10, hematocrit 27.7. Will continue closely monitor CBC. Overnight patient had 415 mL of NG tube suction, 1 bowel movement. Patient repeat ABG revealed respiratory alkalosis with pH of 7.49, pCO2 27, respiratory rate was decreased to 12, will follow-up with repeat ABG. Today patient had a GPS score of 3T, was not responding to sternal rub, did not respond to bilateral lower and upper extremity pain stimuli. Overnight patient was given 1 L of LR, will continue support with vasopressin, continue Precedex, patient had arterial and central line placement. Current management wean off from pressors as tolerates, we will continue lactulose, added rifaximin, continue assessing mental status. Multiple hospitals, including [facility] and [facility], have declined to accept the transfer of the patient, citing concerns that the TIPS procedure would pose too significant a risk. These institutions have expressed that, given the patient?s current condition, proceeding with the procedure would be deemed too dangerous at this time. TRansfer order was DC. 05/17/24: Patient was seen and examined at bedside. No acute overnight events. Labs and vitals are reviewed, patient hemoglobin is stable, currently 8.9, patient had 1 episode of bowel movement. Patient yesterday was breathing over the vent. he was placed on pressure support 5/5, repeat gas revealed respiratory alkalosis. Patient GCS score is 3T, currently ready for SBT trial. Will continue lactulose, frequently assess mentation. Comprehensive panel revealed hypokalemia of 2.8, hyponatremia 152, with free water deficit of 3.1 with goals of correction 10 mEq in first 24-hour. Patient started on free water flushes 70 cc/h with every 4 hour sodium check. Hypokalemia was replaced with 60meq. Will continue sodium check every 4 hours, adjust free water flushes accordingly. GI was contacted, patient will have another EGD today. Hepatorenal ignacio, patient kidney function a little bit improved, still on octreotide and albumin, creatinine down from 2.6 to 2.3, patient is having good urine output. Will continue closely monitor kidney function. 05/18/24: Patient was seen and examined at bedside, GCS of 7, mentation slightly improved, patient has a rectal tube placement yesterday, had multiple episodes of BM, was receiving lactulose 30 3 times daily, patient is having a leak around rectal tube, lactulose decreased to 20 3 times daily, will continue frequent assess mentation, patient is off vasopressors, is on pressor support, given the low GCS, patient does not meet extubation criteria, will continue with mechanical ventilation, reassess mentation frequent. CT head and EEG was ordered, will follow-up with the results. GI ignacio patient had EGD done yesterday, which revealed grade 2 esophageal varices, which was banded, patient had a diffuse oozing bleeding. Hemoglobin is stable 9.2, hematocrit 26.9. Patient hypernatremia worsened 152-157. Increased free water flushes from 60 cc/h to 100 cc/h, will have a frequent sodium check. Repeat blood culture prelim is negative, previous 1 was positive for GBS, patient is on vancomycin and Zosyn. After weaning off from Levophed, patient developed rebound hypertension, which was corrected with IV labetalol and hydralazine, hydralazine 25 3 times daily as needed was placed for SBP above 170. 05/19/2024: Patient was seen and examined. Overnight patient had a hypertension, clonidine was given, currently blood pressures well-controlled. However patient was restless, was placed on Precedex drips, in the morning Precedex was discontinued, patient GCS score of 11, patient was on pressor support with a minimal setting, ABG within normal limits. patient met extubation criteria and successfully extubated without complication. EEG was done, however the study was obscured, no need for another EEG as patient mentation improved and GCS of 11. Labs revealed leukocytosis, anemia, hemoglobin is stable, 9, no signs of symptoms of acute bleeding. Hypernatremia slightly improved, patient was getting 100 cc/h free water flushes, sodium decreased from 158-156, we will increase free water flushes 150 cc/h, close monitor sodium checks every 4 hours. Hypokalemia was managed with potassium replacement, JEANIE slightly improved, creatinine down from 1.8-1.5. Patient is having good urine output. Patient has a rectal tube, getting lactulose 20 3 times daily, had 1 large bowel movement yesterday, will continue with the lactulose. Repeat blood culture preliminary negative, Zosyn was discontinued as previous blood culture revealed GPC, patient is only on vancomycin orally. Will have a formal swallow evaluation, and if patient stays hemodynamically stable, and passes a swallow evaluation patient can be safely downgraded to telemetry. Will continue closely monitor patient's hemodynamics and status. 3:45 p.m. patient was reevaluated, patient is hemodynamically stable, however patient developed bradycardia, octreotide was discontinued. Patient currently is hemodynamically stable, GCS of above 11, responding to commands, the lactulose was decreased to 20 twice daily, blood pressure currently is well-controlled, official swallow evaluation was placed. Continue giving free water flushes through NG tube, frequent neurocheck as well as every 4 hour sodium check. Patient is stable to be transferred to telemetry. Exam Vital Signs Temp Pulse Resp BP Pulse Ox O2 Del Method O2 Flow Rate 96.2 F L 53 L 13 142/65 H 98 Mechanical Ventilation 2 05/19/24 08:00 05/19/24 10:30 05/19/24 10:30 05/19/24 10:15 05/19/24 10:30 05/19/24 08:00 05/19/24 10:30 FiO2 30 05/19/24 08:00 Narrative Exam GENERAL:Severly icteric Ill looking man, extubated, GCS of 11 HEENT: Normocephalic, atraumatic. Pupils are equal and reactive. icteric sclera, teeth loose with dryed blood in mucosa. RIJ noted , dressing clean and dry. NECK: Supple, nontender, no JVD CARDIOVASCULAR: Heart regular rhythm & rate. S1/S2. no murmur or gallop rub or extra beats. LUNGS: Clear to auscultation bilaterally with symmetrical chest rise. No crackles or wheezing. No intercostal subcostal retraction. No rales and no rhonchi. ABDOMEN: Distended Active and normal bowel sounds. EXTREMITIES/skin : Icteric , small necrotic area around right big toe . Left Art line, dressing clean and dry PSYCHIATRIC: Intubated and MV Objective Labs 05/19/24 05:22 05/19/24 12:55 Labs: Laboratory Results - last 24 hr 05/18/24 05/18/24 05/18/24 12:48 16:21 20:30 WBC RBC Hgb 10.1 L Hct 29.2 L MCV MCH MCHC RDW Std Deviation Plt Count Neut % (Auto) Lymph % (Auto) [place]isco[place] % (Auto) Eos % (Auto) Baso % (Auto) Neut # (Auto) Lymph # (Auto) [place] # (Auto) Eos # (Auto) Baso # (Auto) Immature Gran # (Auto) Absolute Nucleated RBC Immature Gran % Nucleated RBC % Puncture Site ABG pH ABG pCO2 ABG pO2 ABG HCO3 ABG O2 Saturation ABG Base Excess FiO2 Sodium 156 H 156 H 158 H Potassium Chloride Carbon Dioxide Anion Gap BUN Creatinine Estim Creat Clear Calc eGFR BUN/Creatinine Ratio Glucose Calculated Osmolality Calcium Corrected Calcium Phosphorus Magnesium Total Bilirubin AST ALT Alkaline Phosphatase Total Protein Albumin Globulin Albumin/Globulin Ratio Misc Test Result 05/19/24 05/19/24 05:05 05:22 WBC 11.7 H RBC 3.05 L Hgb 9.0 L Hct 26.3 L MCV 86 MCH 29.5 MCHC 34.2 RDW Std Deviation 52.9 H Plt Count 55 L Neut % (Auto) 77 Lymph % (Auto) 8 L [place]isco[place] % (Auto) 8 Eos % (Auto) 1 Baso % (Auto) 0 Neut # (Auto) 9.0 H Lymph # (Auto) 0.9 L [place]isco[place] # (Auto) 0.9 H Eos # (Auto) 0.1 Baso # (Auto) 0.1 Immature Gran # (Auto) 0.71 H Absolute Nucleated RBC 0.03 H Immature Gran % 6 H Nucleated RBC % 0 Puncture Site Arterial Line ABG pH 7.44 D ABG pCO2 32 ABG pO2 80 L D ABG HCO3 22 ABG O2 Saturation 97 ABG Base Excess -2 FiO2 35 Sodium 156 H Potassium 3.1 L Chloride 124 H* Carbon Dioxide 20.7 Anion Gap 11 BUN 55 H Creatinine 1.5 H Estim Creat Clear Calc 48.7 L eGFR 53 L BUN/Creatinine Ratio 37 H Glucose 128 H Calculated Osmolality 326 H Calcium 8.5 Corrected Calcium 9.5 Phosphorus 3.4 Magnesium 2.8 H Total Bilirubin 31.7 H* AST 118 H ALT 133 H Alkaline Phosphatase 106 Total Protein 4.8 L Albumin 2.7 L D Globulin 2.1 L Albumin/Globulin Ratio 1.3 Misc Test Result Platelets confirmed ABG Interpretation ABG results: 05/15/24 05/15/24 05/15/24 08:45 14:25 16:08 ABG pH 7.31 L 7.04 L* D 7.22 L D ABG pCO2 20 L 58 H D 35 D ABG pO2 116 H 330 H D 63 L D ABG HCO3 10 L 16 L 14 L ABG O2 Saturation 98 99 H 89 L ABG Base Excess -15 L -15 L -13 L 05/15/24 05/16/24 05/16/24 19:03 04:05 05:05 ABG pH 7.27 L 7.43 D 7.48 H ABG pCO2 27 L 56 H D 23 L D ABG pO2 85 D 160 H D 191 H D ABG HCO3 12 L 37 H 17 L ABG O2 Saturation 96 101 H 100 H ABG Base Excess -13 L 11 H -5 L 05/16/24 05/16/24 05/16/24 11:34 14:20 18:35 ABG pH 7.49 H 7.52 H 7.55 H ABG pCO2 27 L 26 L 25 L ABG pO2 173 H 160 H 201 H D ABG HCO3 21 21 21 ABG O2 Saturation 100 H 100 H 100 H ABG Base Excess -2 -1 0 05/16/24 05/17/24 05/19/24 21:53 11:34 05:05 ABG pH 7.55 H 7.54 H 7.44 D ABG pCO2 25 L 26 L 32 ABG pO2 206 H 177 H D 80 L D ABG HCO3 22 22 22 ABG O2 Saturation 100 H 100 H 97 ABG Base Excess 0 0 -2 Quality Measures Quality Measures none Assessment & Plan Assessment Current Active Medications: Generic Name Dose Route Start Last Admin Trade Name Freq PRN Reason Stop Dose Admin Acetaminophen 650 mg 05/15/24 01:17 Acetaminophen Supp 650 Mg Supp MO 06/14/24 01:16 Q6HR PRN pain and Fever > 100.4 Cholestyramine Resin 1 pkt 05/18/24 21:00 05/19/24 09:50 Cholestyramine/Sucrose 1 Pkt Ea PO 06/17/24 20:59 1 pkt BID SREE Administration Dextrose 25 ml 05/15/24 01:22 Dextrose 50%-Water Inj 50 Ml Syringe IV 06/14/24 01:21 Q15MIN PRN BG 50-70 responsive npo pt Dextrose 50 ml 05/15/24 01:22 Dextrose 50%-Water Inj 50 Ml Syringe IV 06/14/24 01:21 Q15MIN PRN BG <50 OR BG <70 & pt unresponsive Glucagon 1 mg 05/15/24 01:22 Glucagon Inj 1 Mg Vial IM Q15MIN PRN BG <70, and no IV access Hydralazine HCl 25 mg 05/18/24 22:00 05/19/24 06:04 Hydralazine Hcl 25 Mg Tablet PO 06/17/24 21:59 25 mg TID SREE Administration Dexmedetomidine/Sodium Chloride 200 mcg in 50 mls @ 3.763 mls/hr 05/15/24 12:26 05/19/24 07:00 Precedex Ivpb IV 06/14/24 12:25 0 mcg/kg/hr .[id number] PRN 0 mls/hr Per PROTOCOL Titration Protocol 0.2 MCG/KG/HR Norepinephrine/Dextrose 8 mg in 250 mls @ 6.966 mls/hr 05/15/24 20:25 05/17/24 16:50 Levophed In D5w 8mg/250ml IV 06/14/24 20:24 0 mcg/kg/min .Q24H PRN 0 mls/hr PER PROTOCOL Titration Protocol 0.05 MCG/KG/MIN Octreotide Acetate 1,000 mcg/ 102 mls @ 5.1 mls/hr 05/17/24 13:15 05/19/24 09:37 Sodium Chloride IV 05/19/24 22:22 Not Given .Q20H SREE Protocol 50 MCG/HR Vancomycin/Sodium Chloride 750 mg in 150 mls @ 120 mls/hr 05/18/24 10:00 05/19/24 09:49 Vancomycin/Ns 750 Mg Ivpb IV 05/25/24 09:59 120 mls/hr Q24H SREE Administration Potassium Chloride 20 meq in 100 mls @ 50 mls/hr 05/19/24 09:54 Kcl Ivpb IV 05/19/24 13:53 Q2H SREE Insulin Human Lispro 0 unit 05/15/24 06:00 05/19/24 05:15 Insulin Lispro (Admelog) 1 Unit/0.01 Ml Unit SC 06/14/24 05:59 Not Given Q6HR SREE Protocol Lactulose 20 gm 05/18/24 14:00 05/19/24 06:03 Lactulose Syrup 20 Gm/30 Ml Udc NG 06/17/24 13:59 20 gm TID SREE Administration Protocol Ondansetron HCl 4 mg 05/15/24 01:17 05/15/24 05:46 Ondansetron Inj 2 Mg/Ml Inj 2 Ml IV 06/14/24 01:16 4 mg Q6H PRN Administration NAUSEA OR VOMITING Protocol Pantoprazole Sodium 80 mg 05/15/24 21:00 05/19/24 09:49 Pantoprazole Inj 40 Mg Vial IVP 06/14/24 20:59 80 mg BID SREE Administration Pharmacy Consult 1 each 05/15/24 17:30 Vancomycin Pharmacy To Dose 1 Each Each IV 06/14/24 17:29 QDAY PRN CONSULT Rifaximin 550 mg 05/16/24 10:45 05/19/24 09:49 Rifaximin 550 Mg Tablet NG 05/23/24 10:44 550 mg BID SREE Administration Plan 59-year-old male with past medical history of alcohol use disorder, esophageal varices s/p banding, hypertension, hyperlipidemia, DM2, HFpEF (EF 55 to 60%) and biliary dyskinesia was admitted to the hospital on 05/15/2024 for shock, most likely hypovolemic(hemorrhagic class III) combined with a septic shock requiring pressors, and massive blood transfusion due to severe GI bleed 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 -frequent mental status reassessment -EEG study was obscured, however no need for repeat EEG as patient mentation improving, GCS of 11 RESPI Patient was successfully extubated Respiratory alkalosis resolved Chest x-ray concerning for left base pneumonia -Zosyn was discontinued today -Patient currently Only with vancomycin, previous blood culture for positive for GPC, repeat blood culture prelim is negative, follows final results CVS #mixed hypovolemic(class 3 hemorrhagic shock) +septic shock-resolved -Class III hemorrhage involves a 30 to 40 percent blood volume loss, resulting in a significant drop in blood pressure and changes in mental status -he has received massive blood transfusion, calcium was replaced -as needed blood products transfusion, monitor, correct accordingly -BC / +GPC. Zosyn was discontinued, patient currently covered only with vancomycin -repeat BC pending, prelim in 24 (-) #history of HTN #History of HLD #HFpEF (55-60%) - Echo showed EF 55-60% GI #Acute GI bleed #Hx of Grade 3 esophageal varices s/p banded (04/28) #Hx of alcohol use disorder ?Patient came in with complaints of black starry stools and bloody emesis witnessed in the ED ?Initial hemoglobin was 5.8 -FOBT positive -EGD done during on 04/28/2024 showed grade 3 esophageal varices which were banded as well as erythematous mucosa in the stomach. -patient received 5 U prbc , 1 U of FFP and 1U of platelets till now -Dr. Calabrese scoped the patient and showed 1+ esophageal varices and bleeding were going everywhere and was not large enough for band ligation , and the band attenp failed ,and he will need transfer for TIPS shunt. -will continue octeotride and blood products . -05/16:Multiple hospitals, including [facility] and [facility], have declined to accept the transfer of the patient, citing concerns that the TIPS procedure would pose too significant a risk. These institutions have expressed that, given the patient?s current condition, proceeding with the procedure would be deemed too dangerous at this time, he is not stable as well -05/17:Dr. Calabrese did EGD:Grade 2 esophageal varices, banded, erythematous mucosa in the stomach. Diffuse mucosal oozing of blood in the setting of portal hypertension with blood clots in the proximal body of the stomach, underlying surface could not be evaluated for fundic gastric varices. Per GI recommended to continue octreotide infusion and Protonix, support with blood products -05/18: Patient still on IV PPI, octreotide drip was discontinued due to ongoing bradycardia, patient received total of 4 days of octreotide drip. Dr. Calabrese is on board, recommendations appreciated #Cirrhosis #Hyperbilirubinemia #Hyperammonemia #Hypoalbuminemia #Ascites #SBP? - Patient A/Ox1 (only to person)on admission , likely due to hyperammonemia in the setting of cirrhosis, GCS score was 3T - MELD NA score of 34 point indicating 65-66% mortality - Initial Child-Garcia score of 13 points, Class C - Liver function on addmision AST 76, ALT 84, alkaline phosphatase 152, ammonia 142, T bilirubin 23 - INR 2.2 and PT 22.6 - Continue octreotide drip [05/14/2024?], will need to complete 5 days of octreotide drip ?Continue Protonix -Patient will need TIPS shunt, however tranfer was declined from multiple institutions due to high risk as well as patient not being stable. RENAL #JEANIE #Hypoalbuminemia #Hepatorenal was excluded, as patient respond to albumin and octreotide chalange, creatinine slowly improving, patient is having good urine output -Initial creatinine of 2.6 and BUN of 62 compared to patient's baseline which is around 1 -Sanchez in place -Avoid nephrotoxic agents -Renally dose medication -Will continue to monitor #Pure high anion gap metabolic acidosis (delta gap was 1.5)-resolved(Patient had HAGMA likley secondary to lactic acidosis likely due to inability to clear lactic acid ) #Lactic acidosis 2.8 -Will trend lactic acid -Will follow up on Abg #hypernatremia Most likely secondary due to dehydration, patient has been n.p.o., was intermittent NG suction Today sodium level 157, worsened since yesterday, 5.4 Goal is to correct sodium by 10 in thein 24 h. -Increase free water flushes to 150 cc/h -Will monitor every 4 hours sodium checks, avoid rapid correction, adjust free water flushes accordingly #hypokalemia-replaced #hyperchloremic hypernatremia Most likely in the setting of severe diarrhea, -Consider D5W IV to replace intravascular volume -Increased free water flushes, and monitor sodium level every 4 hour -Monitor replace as needed ENDO #DM2 -A1c 6.7% on 04/2024 -ISS - Hypoglycemia protocol ordered ID #Sepsis unknown source DDX. sbp vs gps bacteremia 1/2 bottles for positive for GPC -Continue coverage with vancomycin, may need to obtain peritoneal fluid analysis once patient is more stable -f/u with repeat BC Heme #DIC #Coagulopathy ISTH criteria for DIC 5 points - compatible with DIC DIC panel, after cryoprecipitate use PT 21.1, INR 2, APTT 40.9, fibrinogen 1 6, PT eval 921 Patient currently does not have any signs or symptoms of acute bleeding, hemoglobin is stable -Monitor coagulation panel #Acute blood loss anemia Patient received multiple rounds of blood product transfusion -Continue monitor transfuse if hemoglobin less than 7 -H&H currently stable, repeat daily Disposition:Intubated in ICU , successfully extubated on 05/19 2024 Diet and fluids:prbc , ffp , platelets as needed DVT prophylaxis:scd GI prophylaxis:protonix CODE STATUS:Full code Patient care was discussed with attending physician Dr. Franc Banks MD PGY-2
[2024-05-19] MEDS: POTASSIUM CHL 20 mEq IVPB 20 MEQ/100 ML BAG 50 MEQ IV ×2 (11:32→11:39)
--- NOTE | 2024-05-19 12:29 | PCS.ST ---
EXPLOSIVE EXPERT completed Cohn assessment of swallowing ability at bedside. Pt lethargic. Unable to follow directions. Unable to form bolus. Recommend NPO, EXPLOSIVE EXPERT will reattempt swallow evaluation tomorrow.
--- NOTE | 2024-05-19 12:33 | PC.SS ---
LANDSCAPE TECHNICIAN met with patient's son, Benjamin Villarreal Jr; at patient's bedside. LANDSCAPE TECHNICIAN confirmed son's contact number, . Discussed need to be available by phone if ICU team needs to initiate contact. Son acknowledged need to be available by phone. Patient's son, Yuri Villarreal; also present at patient's bedside. LANDSCAPE TECHNICIAN confirmed that [employer] assisted the patietn's son, Yuri; with obtaining leave from to be visit patient at bedside. Bedside nurse updated.
[2024-05-19 13:32] LABS: Sodium 156 mMol/L (136-145)
--- NOTE | 2024-05-19 14:35 | PD.INTPROG ---
Documentation for date of: 05/19/24 Subjective Subjective Interval history: This is a 59yo M admitted to the ICU for GIB and hepatic encephalopathy requiring intubation for airway protection. He has a h/o ETOH cirrhosis and esophageal varices s/p banding last month. He presented with active bleed and was seen by GI. EGD was done and showed diffuse oozing from the stomach with no clear ulcer and no obvious bleed from varices. He has been transfused multiple units of PRBCs, FFP, PLT and given lts of IVF. Overnight he became hypotensive despite adequate fluid resucitation and was started on levophed. Overnight continued with good UOP and had a drop in his Hb. This morning he remains unresponsive. 05/17- no acute overnight events, good UOP, afebrile, no further drop in h/h, remains with GCS 3T 05/18- no acute overnight events, patient underwent a repeat EGD with GI and 3 varices were banded. He has had ongoing loose stools requiring a rectal tube. He is afebrile with adequate urinary output 05/19- no acute overnight events, this AM waking up more and able to follow commands, no ongoing bleeding, good UOP Critical Care Note Critical care time (min.): 41 Exam Vital Signs Temp Pulse Resp BP Pulse Ox O2 Del Method O2 Flow Rate 97.0 F 49 L 12 121/62 96 Nasal Cannula 2 05/19/24 12:00 05/19/24 14:05 05/19/24 13:48 05/19/24 13:30 05/19/24 14:05 05/19/24 12:00 05/19/24 12:00 FiO2 30 05/19/24 08:00 Narrative Exam Gen- NAD, chronically ill appearing, jaundice, nl body habitus HEENT- NC/AT, mucosa dry, poor dentition, sclera icteric, ETT/NGT in place Chest- LCTAB, HRRR, no increase in WOB Abd- s/nt/bs+ Ext- pulses palp, no clubbing, no mottling, edema Vent PSV Drips octreotide Physical Exam Completion Physical Exam Complete?: Yes Objective - Athletic Team Physician Labs 05/19/24 05:22 05/19/24 12:55 Labs: Laboratory Results - last 24 hr 05/18/24 05/18/24 05/19/24 16:21 20:30 05:05 WBC RBC Hgb Hct MCV MCH MCHC RDW Std Deviation Plt Count Neut % (Auto) Lymph % (Auto) [place] % (Auto) Eos % (Auto) Baso % (Auto) Neut # (Auto) Lymph # (Auto) [place] # (Auto) Eos # (Auto) Baso # (Auto) Immature Gran # (Auto) Absolute Nucleated RBC Immature Gran % Nucleated RBC % Puncture Site Arterial Line ABG pH 7.44 D ABG pCO2 32 ABG pO2 80 L D ABG HCO3 22 ABG O2 Saturation 97 ABG Base Excess -2 FiO2 35 Sodium 156 H 158 H Potassium Chloride Carbon Dioxide Anion Gap BUN Creatinine Estim Creat Clear Calc eGFR BUN/Creatinine Ratio Glucose Calculated Osmolality Calcium Corrected Calcium Phosphorus Magnesium Total Bilirubin AST ALT Alkaline Phosphatase Total Protein Albumin Globulin Albumin/Globulin Ratio Misc Test Result 05/19/24 05/19/24 05:22 12:55 WBC 11.7 H RBC 3.05 L Hgb 9.0 L Hct 26.3 L MCV 86 MCH 29.5 MCHC 34.2 RDW Std Deviation 52.9 H Plt Count 55 L Neut % (Auto) 77 Lymph % (Auto) 8 L [place] % (Auto) 8 Eos % (Auto) 1 Baso % (Auto) 0 Neut # (Auto) 9.0 H Lymph # (Auto) 0.9 L [place] # (Auto) 0.9 H Eos # (Auto) 0.1 Baso # (Auto) 0.1 Immature Gran # (Auto) 0.71 H Absolute Nucleated RBC 0.03 H Immature Gran % 6 H Nucleated RBC % 0 Puncture Site ABG pH ABG pCO2 ABG pO2 ABG HCO3 ABG O2 Saturation ABG Base Excess FiO2 Sodium 156 H 156 H Potassium 3.1 L Chloride 124 H* Carbon Dioxide 20.7 Anion Gap 11 BUN 55 H Creatinine 1.5 H Estim Creat Clear Calc 48.7 L eGFR 53 L BUN/Creatinine Ratio 37 H Glucose 128 H Calculated Osmolality 326 H Calcium 8.5 Corrected Calcium 9.5 Phosphorus 3.4 Magnesium 2.8 H Total Bilirubin 31.7 H* AST 118 H ALT 133 H Alkaline Phosphatase 106 Total Protein 4.8 L Albumin 2.7 L D Globulin 2.1 L Albumin/Globulin Ratio 1.3 Misc Test Result Platelets confirmed Assessment & Plan Additional Plan Additional Plan: In summary this is a 59yo M admitted to the ICU with hepatic encephalopathy and shock a/p COUNSELLING PSYCHOLOGIST Hepatic Encephalopathy- on lactulose 20 TID - mult bowel movements-> rectal tube in place - improvement in mental status - EEG done and results non specific - ? Kernicterus given his Br level-> started on cholestyramine - improved mentation today CV Shock-now resolved HFpEF- hold any diuresis for now -Good urinary output Resp Acute hypoxic resp failure- awake and able to follow commands - good weening parameters - extubated today and doing well Renal AGMA- resolved JEANIE- ? prerenal v hepatorenal - on albumin and octreotide - good UOP -Improvement in creatinine - cont to trend down HypoK-repleted both IV as well as p.o. Will recheck a potassium this afternoon. Anticipate additional losses to loose bowel movements -Repleted again today - cont to replete Hypernatremia- increase free water - difficult to keep up with stool output GI Cirrhosis- 2/2 ETOH, on lactulose and rifaximin, d/w Hepatology at [facility] and not a candidate for TIPS -LFTs trending down - due in part to shock -Patient's T. bili is up to 32 today - cont to improve GI proph- PPI GIB- currently resolved - s/p banding x3 - on octreotide however will stop due to bradycardia - on PPI - seen by GI and recs appreciated Endo stable Heme Leukocytosis- initially reactive in nature , now ? 2/2 sepsis - trending down Anemia- 2/2 GIB, -Has remained stable over the last 24 hours - no further need for transfusion Thrombocytopenia- 2/2 cirrhosis as well as component of dilutional from mass transfusion -Stable ID Bacteremia- on vanc/zosyn, fu on repeat cx -GPC yet to be speciated however remarks suggests that it may be a strep -Repeat blood cultures taken and are negative to date -Given GPC's will DC Zosyn - Identification is still pending case d/w ICU team and for downgrade once stable post extubation labs, imaging, records reviewed ~41cc min required for eval, exam, review, intervention, discussion and formulation of POC for this critically ill pt at high risk for further and ongoing decompensation Provider Notation Provider Notation: Although this document has been carefully reviewed, there may still be some phonetic and other typographical errors. These errors are purely grammatical due to imperfections in the software program and should not be construed in any way to compromise the substance of the patient's medical care during this visit. Thank you for the opportunity and privilege in assisting you with this patient's care and management.
--- NOTE | 2024-05-19 16:37 | ESPR_ITS ---
<Statement entered by Amado Cooper MD - 05/19/24 16:58> Patient was seen and examined in the ICU. Patient was more alert and extubated today. Patient is downgraded from ICU to our team for continuation of care. This patient is a 59-year-old male with past medical history of alcohol use disorder, alcohol induced liver cirrhosis presented with massive GI bleed complicated with hemorrhagic shock requiring pressor support and intubation and was upgraded to ICU. Patient had a complicated ICU course requiring pressor support, 8 units of PRBC and 2 EGDs were performed and initial EGD was unsuccessful however second EGD esophageal varices were banded. Patient was also found to have GPC bacteremia therefore vancomycin was started, repeat blood cultures are coming negative. Speciation for GPC are still pending. Zosyn was discontinued. He was also found to have hyponatremia sodium 157 therefore sodium checks Q4 hourly recommended with water flushes 150 cc/h with NG tube. Will likely perform speech evaluation tomorrow and restart diet per speech evaluation. Patient also has a rectal tube for titrating bowel movements 2?3 on lactulose 20 twice daily scheduled. Will likely perform an echocardiogram to evaluate for vegetations. Hemoglobin is stable. Patient had a episode of rebound hypertension overnight after getting off pressors therefore ICU team placed him on hydralazine 25 3 times daily. Will hold off blood pressure medications given concern for hypotension. Continue with Protonix. Patient was having bradycardic episodes therefore octreotide was discontinued. All labs and orders were reviewed. I saw and examined the patient, and I agree with current management stated by Dr Ronak MD,PGY1. Plan of care was discussed with the attending physician and resident physician. Disclaimer: Despite multiple revisions, due to the dictation software being used, the document bellow may not be free of grammatical errors including phonetic/typographic errors. However, this does not deter from our commitment to providing health care in the patient's best interest in mind. Dr. Marlo MD, PGY 2 Documentation for date of: 05/19/24 Subjective Subjective Interval history: Benjamin Villarreal is a 59-year-old male with PMHX of alcohol use disorder, esophageal varices s/p banding, hypertension, hyperlipidemia, DM2, HFpEF (EF 55 to 60%) and biliary dyskinesia who was admitted 05/15 after coming to ED with complaints of black starry stools and witnessed bloody emesis. Upon night resident evaluation, unable to provide history and was only oriented to self and followed simple commands only. Per chart review, patient had been having black starry stools for 4 days and was hypoxic when EMS evaluated patient. Stated that he has not drank alcohol for the past 15 days. Of note, he was recently discharged from hospital after coming with similar complaints and underwent EGD that revealed grade 3 esophageal varices which were banded and ligated. On 05/15, patient had rapid response for large volume, dark-colored bloody stool and was upgraded to ICU for pressor support and mechanical ventilation for airway management. He has thus far been extubated and off pressors and downgraded to floors on 05/19 for further management. He has received a total of 8 units PRBC, 2 units FFP, and 2 units of platelets. Upon evaluation, patient is alert and responding to questions, and following commands. He does not have any complaints at this time, including abdominal pain, nausea, or vomiting. Exam Vital Signs Temp Pulse Resp BP Pulse Ox O2 Del Method O2 Flow Rate 96.4 F L 48 L 10 L 102/56 L 97 Room Air 2 05/19/24 16:00 05/19/24 16:00 05/19/24 16:00 05/19/24 16:00 05/19/24 16:00 05/19/24 16:00 05/19/24 12:00 FiO2 30 05/19/24 08:00 Narrative Exam General: laying in bed comfortably, jaundiced, GCS 11 HEENT: scleral icterus, NC/AT, mucous membranes moist Cardiovascular: regular rate and rhythm, S1/S2 present, no murmurs appreciated Pulmonary: coarse lung sounds appreciated, no wheezing or crackles Abdominal: obese, soft, non-tender, no rebound/guarding Musculoskeletal: normal ROM, no peripheral edema Skin: jaundiced, warm and dry, intact, no rashes Neuro: CN II-XII intact, no focal deficits Objective Labs 05/20/24 05:08 05/20/24 05:08 Labs: Laboratory Results - last 24 hr 05/18/24 05/18/24 05/19/24 16:21 20:30 05:05 WBC RBC Hgb Hct MCV MCH MCHC RDW Std Deviation Plt Count Neut % (Auto) Lymph % (Auto) [place] % (Auto) Eos % (Auto) Baso % (Auto) Neut # (Auto) Lymph # (Auto) [place] # (Auto) Eos # (Auto) Baso # (Auto) Immature Gran # (Auto) Absolute Nucleated RBC Immature Gran % Nucleated RBC % Puncture Site Arterial Line ABG pH 7.44 D ABG pCO2 32 ABG pO2 80 L D ABG HCO3 22 ABG O2 Saturation 97 ABG Base Excess -2 FiO2 35 Sodium 156 H 158 H Potassium Chloride Carbon Dioxide Anion Gap BUN Creatinine Estim Creat Clear Calc eGFR BUN/Creatinine Ratio Glucose Calculated Osmolality Calcium Corrected Calcium Phosphorus Magnesium Total Bilirubin AST ALT Alkaline Phosphatase Total Protein Albumin Globulin Albumin/Globulin Ratio Misc Test Result 05/19/24 05/19/24 05:22 12:55 WBC 11.7 H RBC 3.05 L Hgb 9.0 L Hct 26.3 L MCV 86 MCH 29.5 MCHC 34.2 RDW Std Deviation 52.9 H Plt Count 55 L Neut % (Auto) 77 Lymph % (Auto) 8 L [place] % (Auto) 8 Eos % (Auto) 1 Baso % (Auto) 0 Neut # (Auto) 9.0 H Lymph # (Auto) 0.9 L [place] # (Auto) 0.9 H Eos # (Auto) 0.1 Baso # (Auto) 0.1 Immature Gran # (Auto) 0.71 H Absolute Nucleated RBC 0.03 H Immature Gran % 6 H Nucleated RBC % 0 Puncture Site ABG pH ABG pCO2 ABG pO2 ABG HCO3 ABG O2 Saturation ABG Base Excess FiO2 Sodium 156 H 156 H Potassium 3.1 L Chloride 124 H* Carbon Dioxide 20.7 Anion Gap 11 BUN 55 H Creatinine 1.5 H Estim Creat Clear Calc 48.7 L eGFR 53 L BUN/Creatinine Ratio 37 H Glucose 128 H Calculated Osmolality 326 H Calcium 8.5 Corrected Calcium 9.5 Phosphorus 3.4 Magnesium 2.8 H Total Bilirubin 31.7 H* AST 118 H ALT 133 H Alkaline Phosphatase 106 Total Protein 4.8 L Albumin 2.7 L D Globulin 2.1 L Albumin/Globulin Ratio 1.3 Misc Test Result Platelets confirmed ABG Interpretation ABG results: 05/15/24 05/15/24 05/15/24 08:45 14:25 16:08 ABG pH 7.31 L 7.04 L* D 7.22 L D ABG pCO2 20 L 58 H D 35 D ABG pO2 116 H 330 H D 63 L D ABG HCO3 10 L 16 L 14 L ABG O2 Saturation 98 99 H 89 L ABG Base Excess -15 L -15 L -13 L 05/15/24 05/16/24 05/16/24 19:03 04:05 05:05 ABG pH 7.27 L 7.43 D 7.48 H ABG pCO2 27 L 56 H D 23 L D ABG pO2 85 D 160 H D 191 H D ABG HCO3 12 L 37 H 17 L ABG O2 Saturation 96 101 H 100 H ABG Base Excess -13 L 11 H -5 L 05/16/24 05/16/24 05/16/24 11:34 14:20 18:35 ABG pH 7.49 H 7.52 H 7.55 H ABG pCO2 27 L 26 L 25 L ABG pO2 173 H 160 H 201 H D ABG HCO3 21 21 21 ABG O2 Saturation 100 H 100 H 100 H ABG Base Excess -2 -1 0 05/16/24 05/17/24 05/19/24 21:53 11:34 05:05 ABG pH 7.55 H 7.54 H 7.44 D ABG pCO2 25 L 26 L 32 ABG pO2 206 H 177 H D 80 L D ABG HCO3 22 22 22 ABG O2 Saturation 100 H 100 H 97 ABG Base Excess 0 0 -2 Quality Measures Quality Measures none Assessment & Plan Assessment Current Active Medications: Generic Name Dose Route Start Last Admin Trade Name Freq PRN Reason Stop Dose Admin Acetaminophen 650 mg 05/15/24 01:17 Acetaminophen Supp 650 Mg Supp DC 06/14/24 01:16 Q6HR PRN pain and Fever > 100.4 Cholestyramine Resin 1 pkt 05/18/24 21:00 05/19/24 09:50 Cholestyramine/Sucrose 1 Pkt Ea PO 06/17/24 20:59 1 pkt BID SREE Administration Dextrose 25 ml 05/15/24 01:22 Dextrose 50%-Water Inj 50 Ml Syringe IV 06/14/24 01:21 Q15MIN PRN BG 50-70 responsive npo pt Dextrose 50 ml 05/15/24 01:22 Dextrose 50%-Water Inj 50 Ml Syringe IV 06/14/24 01:21 Q15MIN PRN BG <50 OR BG <70 & pt unresponsive Glucagon 1 mg 05/15/24 01:22 Glucagon Inj 1 Mg Vial IM Q15MIN PRN BG <70, and no IV access Hydralazine HCl 25 mg 05/18/24 22:00 05/19/24 13:17 Hydralazine Hcl 25 Mg Tablet PO 06/17/24 21:59 Not Given TID SREE Vancomycin/Sodium Chloride 750 mg in 150 mls @ 120 mls/hr 05/18/24 10:00 05/19/24 13:12 Vancomycin/Ns 750 Mg Ivpb IV 05/25/24 09:59 Infused Q24H SREE Infusion Insulin Human Lispro 0 unit 05/15/24 06:00 05/19/24 11:28 Insulin Lispro (Admelog) 1 Unit/0.01 Ml Unit SC 06/14/24 05:59 Not Given Q6HR [facility] Protocol Lactulose 20 gm 05/19/24 21:00 Lactulose Syrup 20 Gm/30 Ml Udc NG 06/18/24 20:59 BID [facility] Protocol Ondansetron HCl 4 mg 05/15/24 01:17 05/15/24 05:46 Ondansetron Inj 2 Mg/Ml Inj 2 Ml IV 06/14/24 01:16 4 mg Q6H PRN Administration NAUSEA OR VOMITING Protocol Pantoprazole Sodium 80 mg 05/15/24 21:00 05/19/24 09:49 Pantoprazole Inj 40 Mg Vial IVP 06/14/24 20:59 80 mg BID SREE Administration Pharmacy Consult 1 each 05/15/24 17:30 Vancomycin Pharmacy To Dose 1 Each Each IV 06/14/24 17:29 QDAY PRN CONSULT Rifaximin 550 mg 05/16/24 10:45 05/19/24 09:49 Rifaximin 550 Mg Tablet NG 05/23/24 10:44 550 mg BID [facility] Administration Plan Benjamin Villarreal is a 59-year-old male with PMHX of alcohol use disorder, esophageal varices s/p banding, hypertension, hyperlipidemia, DM2, HFpEF (EF 55 to 60%) and biliary dyskinesia who was admitted 05/15 after coming to ED with complaints of black starry stools and witnessed bloody emesis. On 05/15, patient had rapid response for large volume, dark-colored bloody stool and was upgraded to ICU for pressor support and mechanical ventilation for airway management. He has thus far been extubated and off pressors and downgraded to floors on 05/19 for further management. He has received a total of 8 units PRBC, 2 units FFP, and 2 units of platelets. Upon evaluation, patient is alert and responding to questions, and following commands. He does not have any complaints at this time, including abdominal pain, nausea, or vomiting. #Acute decompensated cirrhosis #Esophageal varices status post band ligation #Hemorrhagic shock, resolved Initial hemoglobin of 5.8 and received total of 8 units PRBC, 2 units FFP, and 2 units platelets. Underwent EGD on this admission that showed grade 2 varices that were banded as well as diffuse mucosal oozing in setting of hypertensive portal gastropathy with blood clots in proximal body of stomach. Attempted transfer for TIPS procedure but denied by multiple hospitals so transfer DC'd. Received 4 days octreotide drip but discontinued due to bradycardia and currently on Protonix 80 mg IV twice daily. ? GI following, appreciate recommendations ? Octreotide discontinued due to bradycardia ? Protonix 80 mg IV twice daily #Hepatic encephalopathy #Hyperammonemia ? Lactulose 20 g via NG BID ? Rifaximin 550 mg via NG BID #Cirrhosis secondary to EtOH #History of alcohol use disorder #Thrombocytopenia #Hypoalbuminemia #Transaminitis LFTs slowly downtrending. MELD Na score 31 -> 52.6% estmated 3-month mortality Child-Garcia score 11 (Child class C) -> 1-3 year life epectancy and 82% tamara- operative abdominal surgery mortality ? Continue to monitor #GPC bacteremia Blood cultures 05/14: 2 bottles positive for GPC Blood culture 05/16: NGTD ? Vancomycin ? Follow-up echo #Hypertonic hypernatremia Free water deficit of 1.5 L with goal sodium of 145, thus resulting in 62.5 cc/h water flushes. Currently on 150 cc/h water flushes. Suspected to be due to significant GI losses while on lactulose. ? Trend sodium via every 4 hours checks ? Free water flushes of 150 cc/h ? If significant decrease in sodium can decrease water flushes to 100 cc/h #Acute kidney injury, likely prerenal #Hypokalemia #Hyperchloremia #Hypomagnesemia ICU team gave albumin challenge to workup possible hepatorenal syndrome and creatinine improved, thus likely prerenal JEANIE. ? Avoid nephrotoxic agents, renally dose medications #Hyperbilirubinemia ? Cholestyramine 1 packet PO BID #HFpEF Hold on diuresis for now. Good urine output. #Rebound hypertension Noted to be hypertensive after discontinuing pressors and started on hydralazine 25 mg p.o. 3 times daily. However, BP at bedside was 105/56. ? Hydralazine held ? If BP rises, can resume #Type 2 diabetes mellitus A1c 6.7% on 04/2024. ? SSI ? Hypoglycemic protocol in place Hospital management: Disposition: downgraded from ICU, managing hypertonic hypernatremia, JEANIE, and UGIB Fluids: none Diet: NPO Lines: PIV DVT prophylaxis: SCDs GI prophylaxis: pantoprazole 80 mg IV BID Sanchez: placed CODE STATUS: full code ----- Plan discussed with attending physician Dr. Cowart and senior resident physician Dr. Marlo Simons MD PGY-1 Internal Medicine Attending Provider Attestation/Addendum I have discussed and was present for the essential components of the history, physical examination, diagnosis, and treatment plan with the resident. I agree with the patient's care as documented by the resident and amended herein by me. Nick Cowart, DO. Although this document has been carefully reviewed, there may still be some phonetic and other typographical errors. These errors are purely grammatical due to imperfections in the software program and should not be construed in any way to compromise the substance of the patient's medical care during this visit.
[2024-05-19 17:16] LABS: Sodium 157 mMol/L (136-145)
--- NOTE | 2024-05-19 17:23 | PC.SS ---
Update: Patient extubated today. NG tube remains in place. Swallow evaluation is pending. Patient to be downgraded today.
--- NOTE | 2024-05-19 20:50 | PD.IMPROG ---
Documentation for date of: 05/19/24 Subjective Subjective Interval history: Hemoglobin hematocrit 9.0 and 26.3 patient status post band ligation of esophageal varices Exam Vital Signs Temp Pulse Resp BP Pulse Ox O2 Del Method O2 Flow Rate 96.5 F L 50 L 17 132/66 H 98 Room Air 2 05/19/24 20:00 05/19/24 20:00 05/19/24 20:00 05/19/24 20:00 05/19/24 20:00 05/19/24 20:00 05/19/24 12:00 FiO2 30 05/19/24 08:00 Objective Labs 05/19/24 05:22 05/19/24 16:47 Labs: Laboratory Results - last 24 hr 05/18/24 05/19/24 05/19/24 20:30 05:05 05:22 WBC 11.7 H RBC 3.05 L Hgb 9.0 L Hct 26.3 L MCV 86 MCH 29.5 MCHC 34.2 RDW Std Deviation 52.9 H Plt Count 55 L Neut % (Auto) 77 Lymph % (Auto) 8 L [place] % (Auto) 8 Eos % (Auto) 1 Baso % (Auto) 0 Neut # (Auto) 9.0 H Lymph # (Auto) 0.9 L [place] # (Auto) 0.9 H Eos # (Auto) 0.1 Baso # (Auto) 0.1 Immature Gran # (Auto) 0.71 H Absolute Nucleated RBC 0.03 H Immature Gran % 6 H Nucleated RBC % 0 Puncture Site Arterial Line ABG pH 7.44 D ABG pCO2 32 ABG pO2 80 L D ABG HCO3 22 ABG O2 Saturation 97 ABG Base Excess -2 FiO2 35 Sodium 158 H 156 H Potassium 3.1 L Chloride 124 H* Carbon Dioxide 20.7 Anion Gap 11 BUN 55 H Creatinine 1.5 H Estim Creat Clear Calc 48.7 L eGFR 53 L BUN/Creatinine Ratio 37 H Glucose 128 H Calculated Osmolality 326 H Calcium 8.5 Corrected Calcium 9.5 Phosphorus 3.4 Magnesium 2.8 H Total Bilirubin 31.7 H* AST 118 H ALT 133 H Alkaline Phosphatase 106 Total Protein 4.8 L Albumin 2.7 L D Globulin 2.1 L Albumin/Globulin Ratio 1.3 Misc Test Result Platelets confirmed 05/19/24 05/19/24 12:55 16:47 WBC RBC Hgb Hct MCV MCH MCHC RDW Std Deviation Plt Count Neut % (Auto) Lymph % (Auto) [place] % (Auto) Eos % (Auto) Baso % (Auto) Neut # (Auto) Lymph # (Auto) [place] # (Auto) Eos # (Auto) Baso # (Auto) Immature Gran # (Auto) Absolute Nucleated RBC Immature Gran % Nucleated RBC % Puncture Site ABG pH ABG pCO2 ABG pO2 ABG HCO3 ABG O2 Saturation ABG Base Excess FiO2 Sodium 156 H 157 H Potassium Chloride Carbon Dioxide Anion Gap BUN Creatinine Estim Creat Clear Calc eGFR BUN/Creatinine Ratio Glucose Calculated Osmolality Calcium Corrected Calcium Phosphorus Magnesium Total Bilirubin AST ALT Alkaline Phosphatase Total Protein Albumin Globulin Albumin/Globulin Ratio Misc Test Result Impressions Impression: # Acute upper GI bleed secondary to esophageal varices requiring band ligation # Mucosal oozing of blood in the face of hypertensive portal gastropathy Continue present treatment ABG Interpretation ABG results: 05/15/24 05/15/24 05/15/24 08:45 14:25 16:08 ABG pH 7.31 L 7.04 L* D 7.22 L D ABG pCO2 20 L 58 H D 35 D ABG pO2 116 H 330 H D 63 L D ABG HCO3 10 L 16 L 14 L ABG O2 Saturation 98 99 H 89 L ABG Base Excess -15 L -15 L -13 L 05/15/24 05/16/24 05/16/24 19:03 04:05 05:05 ABG pH 7.27 L 7.43 D 7.48 H ABG pCO2 27 L 56 H D 23 L D ABG pO2 85 D 160 H D 191 H D ABG HCO3 12 L 37 H 17 L ABG O2 Saturation 96 101 H 100 H ABG Base Excess -13 L 11 H -5 L 05/16/24 05/16/24 05/16/24 11:34 14:20 18:35 ABG pH 7.49 H 7.52 H 7.55 H ABG pCO2 27 L 26 L 25 L ABG pO2 173 H 160 H 201 H D ABG HCO3 21 21 21 ABG O2 Saturation 100 H 100 H 100 H ABG Base Excess -2 -1 0 05/16/24 05/17/24 05/19/24 21:53 11:34 05:05 ABG pH 7.55 H 7.54 H 7.44 D ABG pCO2 25 L 26 L 32 ABG pO2 206 H 177 H D 80 L D ABG HCO3 22 22 22 ABG O2 Saturation 100 H 100 H 97 ABG Base Excess 0 0 -2 Assessment & Plan A&P Narrative Acute upper GI bleed in the form of melena and hematemesis Acute posthemorrhagic anemia in the setting of chronic liver disease with thrombocytopenia and coagulopathy Plan Continue supportive care Patient will have to be intubated to protect the airway as well as he is clenching his mouth and I cannot open his jaw to place bite block I have asked the intensive care unit specialist Dr. Bruner to intubate the patient paralyze him so I can proceed with the procedure she was kind enough to do so Octreotide drip at 50 mcg/h Protonix drip Serial CBC Will follow the patient Time Spent With Patient Time: Total time spent is greater than 50% in coordination of care (as documented) at patient's floor/unit and/or counseling patient: Procedures Arterial Line Size (Gauge): 18
[2024-05-19 21:24] LABS: Sodium 153 mMol/L (136-145)
[2024-05-20] VITALS (20 sets, daily range): BP systolic 122–156; BP diastolic 67–81; PULSE 49–77; RESP 11–99; TEMP 35.8–36.3; O2SAT 95–99; BMI 27.1
--- NOTE | 2024-05-20 00:16 | RESP.EEG ---
EEG has been completed and is ready for MD interpretation.
[2024-05-20 01:42] LABS: Sodium 152 mMol/L (136-145)
--- NOTE | 2024-05-20 05:00 | XR_ITS ---
Examination: AP chest single view Technique one AP portable semiupright chest single view Exam date and time: May 20, 2024 0421 hours Comparison May 19, 2024 INDICATIONS: Hypoxia FINDINGS: The patient has been extubated Minor atelectasis at the lung bases Orogastric tube in the stomach IMPRESSION: Minor atelectasis at the lung bases
[2024-05-20 05:01] LABS: Base Excess -3 (-3-3); HCO3 21 mEq/L (20-26); Inspired Oxygen, FIO2 21 %; O2 Saturation 99 % (91-98); PCO2 32 mmHg (32.0-48.0); PO2 102 mmHg (83-108); pH, Arterial 7.43 (7.35-7.45)
[2024-05-20 05:03] LABS: Allen Test Performed/OK; Puncture Site Right Radial
[2024-05-20 05:21] LABS: Lactate (Lactic Acid) 1.7 mMol/L (0.4-2.0)
[2024-05-20 05:25] LABS: Basophils # (Auto) 0.1 Thou/mm3 (0.0-0.2); Basophils % (Auto) 1 % (0-2.5); Eosinophils # (Auto) 0.3 Thou/mm3 (0.0-0.5); Eosinophils % (Auto) 2 % (0-10); Hematocrit 32.7 % (41.0-53.0); Hemoglobin 10.8 g/dL (13.5-16.0); Immature Granulocytes % (Auto) 5 % (0-0); Immature Granulocytes Auto 0.58 Thou/mm3 (0.00-0.00); Lymphocytes % (Auto) 8 % (10-50); Mean Corpuscular Hemoglobin 28.8 pg (25.0-35.0); Mean Corpuscular Volume 87 fL (80-100); Monocytes # (Auto) 0.7 Thou/mm3 (0.0-0.8); Monocytes % (Auto) 6 % (0-12); Neutrophils # (Auto) 9.8 Thou/mm3 (1.8-7.7); Neutrophils % (Auto) 79 % (37-80); Nucleated Red Blood Cell % 0 /100 WBC (0); RDW Standard Deviation 55.8 fL (35.1-43.9); Red Blood Count 3.75 Miln/mm3 (4.50-5.90); White Blood Count 12.4 Thou/mm3 (3.8-10.6)
[2024-05-20 05:31] LABS: Platelet Count 55 Thou/mm3 (140-440)
[2024-05-20 05:49] LABS: Slide Review Platelets confirmed
--- NOTE | 2024-05-20 06:06 | PC.NURSE ---
noted pt's abdomen more distended, pt denies pain and urge to urinate, bladder scan and noted [address] Rambo Spears notified and new order received fro mijares cath insertion.
[2024-05-20 06:47] LABS: Alanine Aminotransferase 135 U/L (10-49); Albumin, Serum 3.1 gm/dL (3.5-5.0); Albumin/Globulin Ratio 1.2 (1.2-2.2); Alkaline Phosphatase 129 U/L (46-116); Anion Gap 13 (7-16); Aspartate Amino Transferase 122 U/L (0-34); BUN/Creatinine Ratio 62 Ratio (12-20); Blood Urea Nitrogen 37 mg/dL (9-23); Calcium 8.9 mg/dL (8.3-10.6); Calcium (Corrected) 9.6 mg/dL (8.5-10.1); Carbon Dioxide 19.4 mMol/L (20.0-31.0); Chloride 118 mMol/L (98-107); Creatinine (Component) 0.6 mg/dL (0.6-1.3); Estimated Creatinine Clearance 122.6 mL/min (>60); Globulin 2.6 gm/dL (2.3-3.5); Glucose 102 mg/dL (74-106); Magnesium 2.7 mg/dL (1.6-2.6); Osmolality,Calculated 306 (275-295); Phosphorous 3.2 mg/dL (2.4-5.1); Potassium 4.6 mMol/L (3.4-5.1); Sodium 150 mMol/L (136-145); Total Protein 5.7 gm/dL (5.7-8.2); eGFR > 60 See Note
[2024-05-20 09:24] LABS: Sodium 149 mMol/L (136-145)
[2024-05-20] MEDS: LACTULOSE SYRUP 20 GM/30 ML UDC NG ×2 (09:38→21:05)
[2024-05-20] MEDS: CHOLESTYRAMINE/SUCROSE 1 PKT EA PO ×2 (09:39→21:05)
[2024-05-20] MEDS: rifaximin 550 MG TABLET NG ×2 (09:39→21:05)
[2024-05-20] MEDS: PANTOPRAZOLE INJ 40 MG VIAL 80 MG IVP ×2 (09:39→21:07)
--- NOTE | 2024-05-20 10:49 | XR_ITS ---
Examination: Abdomen AP single view Technique: AP portable supine abdomen, single view Exam date and time: May 20, 2024 0951 hours INDICATIONS: Abdominal distention today. FINDINGS: Orogastric tube tip in the stomach, mildly air distended stomach Small bowel ileus No free air No obstruction IMPRESSION: Small bowel ileus, mild to moderate
--- NOTE | 2024-05-20 10:50 | XR_ITS ---
Examination: Abdomen sonogram, complete Date and time of exam: May 20, 2024 1218 hours INDICATIONS: Abdominal distention this week. Technique: Multiple real-time grayscale transabdominal sonographic images of the abdomen have been obtained. Findings: Cholelithiasis Gallbladder wall 0.5 cm however the patient has ascites Common bile duct 0.48 cm Pancreatic head 4.4 cm Aorta not enlarged Liver 18.1 cm lobular contour Normal hepatopedal portal venous flow Patent IVC Right kidney 11.6 cm renal cortex 1.6 cm Left kidney 11.6 cm renal cortex 1.5 cm No hydronephrosis Spleen 15.7 cm IMPRESSION: Cholelithiasis, the gallbladder wall is thickened but the patient has ascites Cirrhosis Splenomegaly Prominent pancreatic head 4.4 cm, consider CT scan abdomen pelvis post intravenous contrast follow-up
--- NOTE | 2024-05-20 11:32 | PCS.ST ---
swallow eval completed. AUTOMATIC SHIRRING MACHINE OPERATOR recommends D2/THIN. See report or details.
[2024-05-20] MEDS: VANCOMYCIN/NS 750 MG IVPB 750 MG/150 ML BAG 120 MG IV (11:34)
--- NOTE | 2024-05-20 12:30 | ESPR_ITS ---
<Statement entered by Amado Cooper MD - 05/20/24 18:28> Patient was seen and examined at the bedside. No acute overnight events were reported. Patient had acute urine retention overnight therefore Sanchez catheter was placed and 1 L was removed. Patient denied any abdominal pain or nausea vomiting. Abdominal x-ray showed ileus pattern. Patient's NG tube was removed and was started on dysphagia 3 diet. Simethicone was added for bloating. Will continue with Protonix, lactulose and vancomycin for GPC bacteremia. Pending echocardiogram. Neurology recommended to perform another EEG to evaluate for seizures. Will follow-up on that. Abdominal ultrasound did not show moderate ascites. Sodium has been improving. All labs and orders were reviewed. I saw and examined the patient, and I agree with current management stated by Dr Ronak MD,PGY1. Plan of care was discussed with the attending physician and resident physician. Disclaimer: Despite multiple revisions, due to the dictation software being used, the document bellow may not be free of grammatical errors including phonetic/typographic errors. However, this does not deter from our commitment to providing health care in the patient's best interest in mind. Dr. Kenneth MD, PGY 2 Documentation for date of: 05/20/24 Subjective Subjective Interval history: Benjamin Villarreal is a 59-year-old male with PMHX of alcohol use disorder, esophageal varices s/p banding, hypertension, hyperlipidemia, DM2, HFpEF (EF 55 to 60%) and biliary dyskinesia who was admitted 05/15 after coming to ED with complaints of black starry stools and witnessed bloody emesis. Upon night resident evaluation, unable to provide history and was only oriented to self and followed simple commands only. Per chart review, patient had been having black starry stools for 4 days and was hypoxic when EMS evaluated patient. Stated that he has not drank alcohol for the past 15 days. Of note, he was recently discharged from hospital after coming with similar complaints and underwent EGD that revealed grade 3 esophageal varices which were banded and ligated. On 05/15, patient had rapid response for large volume, dark-colored bloody stool and was upgraded to ICU for pressor support and mechanical ventilation for airway management. He has thus far been extubated and off pressors and downgraded to floors on 05/19 for further management. He has received a total of 8 units PRBC, 2 units FFP, and 2 units of platelets. 05/20: No acute overnight events reported. Seen and examined at bedside in ICU as telemetry overflow. States that he does not have any complaints at this time, including abdominal pain, nausea, or vomiting. However, abdominal x-ray showed mild to moderate small bowel ileus. Neurology following and wants to follow-up with another EEG given prior EEG abnormal findings. Exam Vital Signs Temp Pulse Resp BP Pulse Ox O2 Del Method O2 Flow Rate 96.5 F L 52 L 23 H 149/72 H 97 Room Air 2 05/20/24 04:00 05/20/24 04:00 05/20/24 04:00 05/20/24 04:00 05/20/24 04:00 05/20/24 04:00 05/19/24 12:00 FiO2 30 05/19/24 08:00 Narrative Exam General: laying in bed comfortably, jaundiced HEENT: scleral icterus, NC/AT, mucous membranes moist Cardiovascular: regular rate and rhythm, S1/S2 present, no murmurs appreciated Pulmonary: coarse lung sounds appreciated, no wheezing or crackles Abdominal: distended, firm, non-tender, no rebound/guarding Musculoskeletal: normal ROM, no peripheral edema Skin: jaundiced, warm and dry, intact, no rashes Neuro: CN II-XII intact, no focal deficits Objective Labs 05/22/24 07:19 05/22/24 05:52 Labs: Laboratory Results - last 24 hr 05/19/24 05/19/24 05/19/24 12:55 16:47 20:46 WBC RBC Hgb Hct MCV MCH MCHC RDW Std Deviation Plt Count Neut % (Auto) Lymph % (Auto) [place] % (Auto) Eos % (Auto) Baso % (Auto) Neut # (Auto) Lymph # (Auto) [place] # (Auto) Eos # (Auto) Baso # (Auto) Immature Gran # (Auto) Absolute Nucleated RBC Immature Gran % Nucleated RBC % Puncture Site ABG pH ABG pCO2 ABG pO2 ABG HCO3 ABG O2 Saturation ABG Base Excess FiO2 Sodium 156 H 157 H 153 H Potassium Chloride Carbon Dioxide Anion Gap BUN Creatinine Estim Creat Clear Calc eGFR BUN/Creatinine Ratio Glucose Calculated Osmolality Lactic Acid Calcium Corrected Calcium Phosphorus Magnesium Total Bilirubin AST ALT Alkaline Phosphatase Total Protein Albumin Globulin Albumin/Globulin Ratio Misc Test Result 05/20/24 05/20/24 05/20/24 01:20 04:55 05:08 WBC 12.4 H RBC 3.75 L Hgb 10.8 L Hct 32.7 L MCV 87 MCH 28.8 MCHC 33.0 RDW Std Deviation 55.8 H Plt Count 55 L Neut % (Auto) 79 Lymph % (Auto) 8 L [place] % (Auto) 6 Eos % (Auto) 2 Baso % (Auto) 1 Neut # (Auto) 9.8 H Lymph # (Auto) 1.0 [place] # (Auto) 0.7 Eos # (Auto) 0.3 Baso # (Auto) 0.1 Immature Gran # (Auto) 0.58 H Absolute Nucleated RBC 0.00 Immature Gran % 5 H Nucleated RBC % 0 Puncture Site Right Radial ABG pH 7.43 ABG pCO2 32 ABG pO2 102 D ABG HCO3 21 ABG O2 Saturation 99 H ABG Base Excess -3 FiO2 21 Sodium 152 H 150 H Potassium 4.6 D Chloride 118 H Carbon Dioxide 19.4 L Anion Gap 13 BUN 37 H Creatinine 0.6 D Estim Creat Clear Calc 122.6 eGFR > 60 BUN/Creatinine Ratio 62 H Glucose 102 Calculated Osmolality 306 H Lactic Acid 1.7 Calcium 8.9 Corrected Calcium 9.6 Phosphorus 3.2 Magnesium 2.7 H Total Bilirubin 33.0 H* D AST 122 H ALT 135 H Alkaline Phosphatase 129 H D Total Protein 5.7 Albumin 3.1 L Globulin 2.6 Albumin/Globulin Ratio 1.2 Misc Test Result Platelets confirmed 05/20/24 08:45 WBC RBC Hgb Hct MCV MCH MCHC RDW Std Deviation Plt Count Neut % (Auto) Lymph % (Auto) [place] % (Auto) Eos % (Auto) Baso % (Auto) Neut # (Auto) Lymph # (Auto) [place] # (Auto) Eos # (Auto) Baso # (Auto) Immature Gran # (Auto) Absolute Nucleated RBC Immature Gran % Nucleated RBC % Puncture Site ABG pH ABG pCO2 ABG pO2 ABG HCO3 ABG O2 Saturation ABG Base Excess FiO2 Sodium 149 H Potassium Chloride Carbon Dioxide Anion Gap BUN Creatinine Estim Creat Clear Calc eGFR BUN/Creatinine Ratio Glucose Calculated Osmolality Lactic Acid Calcium Corrected Calcium Phosphorus Magnesium Total Bilirubin AST ALT Alkaline Phosphatase Total Protein Albumin Globulin Albumin/Globulin Ratio Misc Test Result ABG Interpretation ABG results: 05/15/24 05/15/24 05/15/24 08:45 14:25 16:08 ABG pH 7.31 L 7.04 L* D 7.22 L D ABG pCO2 20 L 58 H D 35 D ABG pO2 116 H 330 H D 63 L D ABG HCO3 10 L 16 L 14 L ABG O2 Saturation 98 99 H 89 L ABG Base Excess -15 L -15 L -13 L 05/15/24 05/16/24 05/16/24 19:03 04:05 05:05 ABG pH 7.27 L 7.43 D 7.48 H ABG pCO2 27 L 56 H D 23 L D ABG pO2 85 D 160 H D 191 H D ABG HCO3 12 L 37 H 17 L ABG O2 Saturation 96 101 H 100 H ABG Base Excess -13 L 11 H -5 L 05/16/24 05/16/24 05/16/24 11:34 14:20 18:35 ABG pH 7.49 H 7.52 H 7.55 H ABG pCO2 27 L 26 L 25 L ABG pO2 173 H 160 H 201 H D ABG HCO3 21 21 21 ABG O2 Saturation 100 H 100 H 100 H ABG Base Excess -2 -1 0 05/16/24 05/17/24 05/19/24 21:53 11:34 05:05 ABG pH 7.55 H 7.54 H 7.44 D ABG pCO2 25 L 26 L 32 ABG pO2 206 H 177 H D 80 L D ABG HCO3 22 22 22 ABG O2 Saturation 100 H 100 H 97 ABG Base Excess 0 0 -2 05/20/24 04:55 ABG pH 7.43 ABG pCO2 32 ABG pO2 102 D ABG HCO3 21 ABG O2 Saturation 99 H ABG Base Excess -3 Quality Measures Quality Measures none Assessment & Plan Assessment Current Active Medications: Generic Name Dose Route Start Last Admin Trade Name Freq PRN Reason Stop Dose Admin Acetaminophen 650 mg 05/15/24 01:17 Acetaminophen Supp 650 Mg Supp SC 06/14/24 01:16 Q6HR PRN pain and Fever > 100.4 Cholestyramine Resin 1 pkt 05/18/24 21:00 05/20/24 09:39 Cholestyramine/Sucrose 1 Pkt Ea PO 06/17/24 20:59 1 pkt BID SREE Administration Dextrose 25 ml 05/15/24 01:22 Dextrose 50%-Water Inj 50 Ml Syringe IV 06/14/24 01:21 Q15MIN PRN BG 50-70 responsive npo pt Dextrose 50 ml 05/15/24 01:22 Dextrose 50%-Water Inj 50 Ml Syringe IV 06/14/24 01:21 Q15MIN PRN BG <50 OR BG <70 & pt unresponsive Glucagon 1 mg 05/15/24 01:22 Glucagon Inj 1 Mg Vial IM Q15MIN PRN BG <70, and no IV access Hydralazine HCl 25 mg 05/18/24 22:00 05/19/24 13:17 Hydralazine Hcl 25 Mg Tablet PO 06/17/24 21:59 Not Given TID SREE Vancomycin/Sodium Chloride 750 mg in 150 mls @ 120 mls/hr 05/18/24 10:00 05/20/24 11:34 Vancomycin/Ns 750 Mg Ivpb IV 05/25/24 09:59 120 mls/hr Q24H SREE Administration Protocol Insulin Human Lispro 0 unit 05/15/24 06:00 05/20/24 11:40 Insulin Lispro (Admelog) 1 Unit/0.01 Ml Unit SC 06/14/24 05:59 Not Given Q6HR SREE Protocol Lactulose 20 gm 05/19/24 21:00 05/20/24 09:38 Lactulose Syrup 20 Gm/30 Ml Udc NG 06/18/24 20:59 20 gm BID SREE Administration Protocol Ondansetron HCl 4 mg 05/15/24 01:17 05/15/24 05:46 Ondansetron Inj 2 Mg/Ml Inj 2 Ml IV 06/14/24 01:16 4 mg Q6H PRN Administration NAUSEA OR VOMITING Protocol Pantoprazole Sodium 80 mg 05/15/24 21:00 05/20/24 09:39 Pantoprazole Inj 40 Mg Vial IVP 06/14/24 20:59 80 mg BID SREE Administration Pharmacy Consult 1 each 05/15/24 17:30 Vancomycin Pharmacy To Dose 1 Each Each IV 06/14/24 17:29 QDAY PRN CONSULT Rifaximin 550 mg 05/16/24 10:45 05/20/24 09:39 Rifaximin 550 Mg Tablet NG 05/23/24 10:44 550 mg BID SREE Administration Plan Benjamin Villarreal is a 59-year-old male with PMHX of alcohol use disorder, esophageal varices s/p banding, hypertension, hyperlipidemia, DM2, HFpEF (EF 55 to 60%) and biliary dyskinesia who was admitted 05/15 after coming to ED with complaints of black starry stools and witnessed bloody emesis. On 05/15, patient had rapid response for large volume, dark-colored bloody stool and was upgraded to ICU for pressor support and mechanical ventilation for airway management. He has thus far been extubated and off pressors and downgraded to floors on 05/19 for further management. He has received a total of 8 units PRBC, 2 units FFP, and 2 units of platelets. Upon evaluation, patient is alert and responding to questions, and following commands. He does not have any complaints at this time, including abdominal pain, nausea, or vomiting. #Acute decompensated cirrhosis #Esophageal varices status post band ligation #Hemorrhagic shock, resolved Initial hemoglobin of 5.8 and received total of 8 units PRBC, 2 units FFP, and 2 units platelets. Underwent EGD on this admission that showed grade 2 varices that were banded as well as diffuse mucosal oozing in setting of hypertensive portal gastropathy with blood clots in proximal body of stomach. Attempted transfer for TIPS procedure but denied by multiple hospitals so transfer DC'd. Received 4 days octreotide drip but discontinued due to bradycardia and currently on Protonix 80 mg IV twice daily. ? GI following, appreciate recommendations ? Octreotide discontinued due to bradycardia ? Protonix 80 mg IV twice daily #Hepatic encephalopathy #Hyperammonemia ? Lactulose 20 g via NG BID ? Rifaximin 550 mg via NG BID #Cirrhosis secondary to EtOH #History of alcohol use disorder #Thrombocytopenia #Hypoalbuminemia #Transaminitis MELD Na score 31 -> 52.6% estmated 3-month mortality Child-Garcia score 11 (Child class C) -> 1-3 year life epectancy and 82% tamara- operative abdominal surgery mortality ? Continue to monitor #GPC bacteremia Blood cultures 05/14: 2/2 bottles positive for GPC Blood culture 05/16: NGTD ? Vancomycin ? Follow-up echo #Hypertonic hypernatremia, improving Free water deficit of 1.5 L with goal sodium of 145, previously on 150 cc/h water flushes but NG tube has since been discontinued. Suspected to be due to significant GI losses while on lactulose. ? Trend sodium via every 4 hours checks ? Continue with oral hydration or IVF if needed #? Seizures EEG on 05/19 obscured from artifact and will follow-up repeat EEG. ? Neurology consulted, appreciate recommendations ? Follow-up EEG and neurology recommendations #Acute kidney injury, likely prerenal #Hypokalemia, resolved #Hyperchloremia, improving #Hypomagnesemia, resolved ICU team gave albumin challenge to workup possible hepatorenal syndrome and creatinine improved, thus likely prerenal JEANIE. ? Avoid nephrotoxic agents, renally dose medications #Hyperbilirubinemia ? Cholestyramine 1 packet PO BID #HFpEF Hold on diuresis for now. Good urine output. #Rebound hypertension Noted to be hypertensive after discontinuing pressors and started on hydralazine 25 mg p.o. 3 times daily. However, BP at bedside was 105/56. ? Hydralazine held ? If BP rises, can resume #Type 2 diabetes mellitus A1c 6.7% on 04/2024. ? SSI ? Hypoglycemic protocol in place Hospital management: Disposition: downgraded from ICU, managing hypertonic hypernatremia, JEANIE, and UGIB Fluids: none Diet: NPO Lines: PIV DVT prophylaxis: SCDs GI prophylaxis: pantoprazole 80 mg IV BID Sanchez: placed CODE STATUS: full code ----- Plan discussed with attending physician Dr. Cowart and senior resident physician Dr. Kenneth Simons MD PGY-1 Internal Medicine Attending Provider Attestation/Addendum I have discussed and was present for the essential components of the history, physical examination, diagnosis, and treatment plan with the resident. I agree with the patient's care as documented by the resident and amended herein by me. Nick Cowart, DO. Although this document has been carefully reviewed, there may still be some phonetic and other typographical errors. These errors are purely grammatical due to imperfections in the software program and should not be construed in any way to compromise the substance of the patient's medical care during this visit.
[2024-05-20 12:45] LABS: INR 1.9 (0.9-1.3); Prothrombin Time 20.2 Seconds (9.0-12.2)
[2024-05-20 12:46] LABS: Sodium 146 mMol/L (136-145)
--- NOTE | 2024-05-20 14:51 | PC.SS ---
Rounding Note:Patient is an ICU downgrade. Plan is to repeat blood cultures. Echo is pending. Patient passed swallow evaluation.
[2024-05-20] MEDS: ALBUTEROL/IPRATROPIUM (Duoneb) RT SOL 3 ML NEBU INH (16:03)
[2024-05-20 16:22] LABS: Sodium 146 mMol/L (136-145)
--- NOTE | 2024-05-20 16:35 | ECHO_ITS ---
Transthoracic Echo Report Ht (in): 64 Wt (lb): 164 Exam Location: [facility] Status: Inpatient Electrician Master: JUANCHO Watkins^^^^ Indications: Procedure Performed: BP: 143 / 67 HR: 55 Technical Quality: Fair MEASUREMENTS (Male / Female) Normal Values 2D ECHO LV Diastolic Diameter PLAX 5.9 cm 4.2 - 5.9 / 3.9 - 5.3 cm LV Systolic Diameter PLAX 3.6 cm IVS Diastolic Thickness 0.7 cm 0.6 - 1.0 / 0.6 - 0.9 cm LVPW Diastolic Thickness 0.8 cm 0.6 - 1.0 / 0.6 - 0.9 cm LV Relative Wall Thickness 0.3 LVOT Diameter 1.8 cm Aortic Root Diameter 2.7 cm LA Systolic Diameter LX 4.2 cm 3.0 - 4.0 / 2.7 - 3.8 cm LA Volume Index 55.6 cm?/m? 16 - 28 cm?/m? Ascending Aorta Diameter 3.3 cm DOPPLER AV Peak Velocity 244.7 cm/s AV Peak Gradient 24.0 mmHg AV Mean Gradient 11.0 mmHg AV Velocity Time Integral 53.5 cm LVOT Peak Velocity 161.0 cm/s LVOT Peak Gradient 10.4 mmHg LVOT Velocity Time Integral 40.9 cm LVOT Cardiac Index 3088.9 cm?/min?m? AV Area Cont Eq vti 1.9 cm? AV Area Cont Eq pk 1.7 cm? MV Area PHT 3.0 cm? Mitral E Point Velocity 69.0 cm/s Mitral A Point Velocity 86.6 cm/s Mitral E to A Ratio 0.8 LV E' Lateral Velocity 10.1 cm/s Mitral E to LV E' Lateral Ratio 6.8 LV E' Septal Velocity 8.4 cm/s Mitral E to LV E' Septal Ratio 8.3 TR Peak Velocity 282.0 cm/s TR Peak Gradient 31.8 mmHg PV Peak Velocity 252.0 cm/s PV Peak Gradient 25.4 mmHg RVOT Peak Velocity 62.1 cm/s FINDINGS Left Ventricle The left ventricular cavity size is mildly increased. There is grade I diastolic dysfunction of the left ventricle (impaired relaxation pattern). The left ventricular ejection fraction is normal, estimated at 55-60%. Right Ventricle The right ventricle is normal in size and systolic function. The estimated right ventricular systolic pressure, 35 mmHg. Left Atrium Moderately increased left atrial volume 55.6 mL/m?. Right Atrium The right atrial cavity size is mildly increased. Atrial Septum The interatrial septum appears normal with no evidence of a shunt. Aorta The aorta is normal by two-dimensional, color flow and Doppler interrogation. Mitral Valve Mild mitral annular calcification. Mild mitral regurgitation. Aortic Valve Mild aortic valve stenosis, mean gradient 11 mmHg, TIFFANIE 1.9 cm?. Tricuspid Valve There is mild tricuspid valve regurgitation. Pulmonic Valve Trivial pulmonic valve regurgitation. Vessels The pulmonary artery appears normal. The inferior vena cava pulmonary and hepatic veins appear normal. Pericardium The pericardium is normal by two-dimensional imaging. There is no significant pericardial effusion. CONCLUSIONS indication: GPC bacteremia LV appears mildly dilated EF 55-60%. Diastolic Dysfunction I. RV appears normal with RVSP 35 mmHg. LA is moderately dilated. RA is mildly dilated. Mild MR & MAC Mild TR Mild Diana Du (Electronically Signed) Final Date: 24 May 2024 11:24
[2024-05-20] MEDS: INSULIN LISPRO (AdmeLOG) 1 UNIT/0.01 ML UNIT SC ×2 (17:23→21:06)
[2024-05-20 20:50] LABS: Sodium 149 mMol/L (136-145)
--- NOTE | 2024-05-20 21:39 | ESPR_ITS ---
Documentation for date of: 05/20/24 Subjective Subjective Interval history: Patient was seen in ICU today. No complaints reported overnight Exam - Neurology Vital Signs Temp Pulse Resp BP Pulse Ox O2 Del Method O2 Flow Rate 96.7 F L 62 20 122/81 99 Room Air 2 05/20/24 16:00 05/20/24 16:05 05/20/24 16:05 05/20/24 16:00 05/20/24 16:05 05/20/24 16:00 05/19/24 12:00 FiO2 30 05/19/24 08:00 Narrative Exam GENERAL APPEARANCE: Well hydrated, well-nourished in no acute distress. HEENT: Normocephalic, atraumatic, extraocular movements intact. Pupils: Equal reacting to light. NECK: Supple, no JVD or bruits. CARDIOVASULAR: Heart: S1, S2 heard, regular without S3-S4 or murmur no rubs or gallops. LUNGS/CHEST: Clear to auscultation bilaterally. No rails, rhonchi, or wheezing. Normal inspection. ABDOMEN: Soft, nontender, with normal bowel sounds. No pulsatile masses. No rebound, rigidity, or guarding. Normal inspection and palpation. EXTREMITIES: Normal inspection and palpation. No edema, clubbing or cyanosis. SKIN: Warm and dry without rashes. Normal inspection. MUSCULOSKELETAL: No cervical, thoracic, lumbar or midline bony tenderness. Normal inspection. NEURO: Alert, awake, no focal motor or sensory deficit noted. No signs of meningeal irritation noted. PSYCHIATRIC: Normal mood and affect. Objective Labs 05/20/24 05:08 05/20/24 20:29 Labs: Laboratory Results - last 24 hr 05/20/24 05/20/24 05/20/24 01:20 04:55 05:08 WBC 12.4 H RBC 3.75 L Hgb 10.8 L Hct 32.7 L MCV 87 MCH 28.8 MCHC 33.0 RDW Std Deviation 55.8 H Plt Count 55 L Neut % (Auto) 79 Lymph % (Auto) 8 L [place] % (Auto) 6 Eos % (Auto) 2 Baso % (Auto) 1 Neut # (Auto) 9.8 H Lymph # (Auto) 1.0 [place] # (Auto) 0.7 Eos # (Auto) 0.3 Baso # (Auto) 0.1 Immature Gran # (Auto) 0.58 H Absolute Nucleated RBC 0.00 Immature Gran % 5 H Nucleated RBC % 0 PT INR Puncture Site Right Radial ABG pH 7.43 ABG pCO2 32 ABG pO2 102 D ABG HCO3 21 ABG O2 Saturation 99 H ABG Base Excess -3 FiO2 21 Sodium 152 H 150 H Potassium 4.6 D Chloride 118 H Carbon Dioxide 19.4 L Anion Gap 13 BUN 37 H Creatinine 0.6 D Estim Creat Clear Calc 122.6 eGFR > 60 BUN/Creatinine Ratio 62 H Glucose 102 Calculated Osmolality 306 H Lactic Acid 1.7 Calcium 8.9 Corrected Calcium 9.6 Phosphorus 3.2 Magnesium 2.7 H Total Bilirubin 33.0 H* D AST 122 H ALT 135 H Alkaline Phosphatase 129 H D Total Protein 5.7 Albumin 3.1 L Globulin 2.6 Albumin/Globulin Ratio 1.2 Misc Test Result Platelets confirmed 05/20/24 05/20/24 05/20/24 08:45 12:12 15:58 WBC RBC Hgb Hct MCV MCH MCHC RDW Std Deviation Plt Count Neut % (Auto) Lymph % (Auto) [place] % (Auto) Eos % (Auto) Baso % (Auto) Neut # (Auto) Lymph # (Auto) [place] # (Auto) Eos # (Auto) Baso # (Auto) Immature Gran # (Auto) Absolute Nucleated RBC Immature Gran % Nucleated RBC % PT 20.2 H INR 1.9 H Puncture Site ABG pH ABG pCO2 ABG pO2 ABG HCO3 ABG O2 Saturation ABG Base Excess FiO2 Sodium 149 H 146 H 146 H Potassium Chloride Carbon Dioxide Anion Gap BUN Creatinine Estim Creat Clear Calc eGFR BUN/Creatinine Ratio Glucose Calculated Osmolality Lactic Acid Calcium Corrected Calcium Phosphorus Magnesium Total Bilirubin AST ALT Alkaline Phosphatase Total Protein Albumin Globulin Albumin/Globulin Ratio Misc Test Result 05/20/24 20:29 WBC RBC Hgb Hct MCV MCH MCHC RDW Std Deviation Plt Count Neut % (Auto) Lymph % (Auto) [place] % (Auto) Eos % (Auto) Baso % (Auto) Neut # (Auto) Lymph # (Auto) [place] # (Auto) Eos # (Auto) Baso # (Auto) Immature Gran # (Auto) Absolute Nucleated RBC Immature Gran % Nucleated RBC % PT INR Puncture Site ABG pH ABG pCO2 ABG pO2 ABG HCO3 ABG O2 Saturation ABG Base Excess FiO2 Sodium 149 H Potassium Chloride Carbon Dioxide Anion Gap BUN Creatinine Estim Creat Clear Calc eGFR BUN/Creatinine Ratio Glucose Calculated Osmolality Lactic Acid Calcium Corrected Calcium Phosphorus Magnesium Total Bilirubin AST ALT Alkaline Phosphatase Total Protein Albumin Globulin Albumin/Globulin Ratio Misc Test Result ABG Interpretation ABG results: 05/15/24 05/15/24 05/15/24 08:45 14:25 16:08 ABG pH 7.31 L 7.04 L* D 7.22 L D ABG pCO2 20 L 58 H D 35 D ABG pO2 116 H 330 H D 63 L D ABG HCO3 10 L 16 L 14 L ABG O2 Saturation 98 99 H 89 L ABG Base Excess -15 L -15 L -13 L 05/15/24 05/16/24 05/16/24 19:03 04:05 05:05 ABG pH 7.27 L 7.43 D 7.48 H ABG pCO2 27 L 56 H D 23 L D ABG pO2 85 D 160 H D 191 H D ABG HCO3 12 L 37 H 17 L ABG O2 Saturation 96 101 H 100 H ABG Base Excess -13 L 11 H -5 L 05/16/24 05/16/24 05/16/24 11:34 14:20 18:35 ABG pH 7.49 H 7.52 H 7.55 H ABG pCO2 27 L 26 L 25 L ABG pO2 173 H 160 H 201 H D ABG HCO3 21 21 21 ABG O2 Saturation 100 H 100 H 100 H ABG Base Excess -2 -1 0 05/16/24 05/17/24 05/19/24 21:53 11:34 05:05 ABG pH 7.55 H 7.54 H 7.44 D ABG pCO2 25 L 26 L 32 ABG pO2 206 H 177 H D 80 L D ABG HCO3 22 22 22 ABG O2 Saturation 100 H 100 H 97 ABG Base Excess 0 0 -2 05/20/24 04:55 ABG pH 7.43 ABG pCO2 32 ABG pO2 102 D ABG HCO3 21 ABG O2 Saturation 99 H ABG Base Excess -3 Assessment & Plan Assessment and plan (1) Altered mental status: Status: Resolved Assessment and plan: Follow-up with repeat EEG as the initial EEG showed diffuse slowing with electrode artifact in T3 (2) Anemia: Status: Acute Assessment and plan: Hemoglobin and hematocrit improving with blood transfusion (3) Acute upper GI bleeding: Status: Acute Assessment and plan: Continue with the current management as per primary team. GI following Procedures Arterial Line Size (Gauge): 18
--- NOTE | 2024-05-20 22:19 | ESPR_ITS ---
Documentation for date of: 05/20/24 Subjective Subjective Interval history: Patient more alert Hemoglobin hematocrit 10.8 and 32.7 Exam Vital Signs Temp Pulse Resp BP Pulse Ox O2 Del Method O2 Flow Rate 96.7 F L 62 20 122/81 99 Room Air 2 05/20/24 16:00 05/20/24 16:05 05/20/24 16:05 05/20/24 16:00 05/20/24 16:05 05/20/24 16:00 05/19/24 12:00 FiO2 30 05/19/24 08:00 Objective Labs 05/20/24 05:08 05/20/24 20:29 Labs: Laboratory Results - last 24 hr 05/20/24 05/20/24 05/20/24 01:20 04:55 05:08 WBC 12.4 H RBC 3.75 L Hgb 10.8 L Hct 32.7 L MCV 87 MCH 28.8 MCHC 33.0 RDW Std Deviation 55.8 H Plt Count 55 L Neut % (Auto) 79 Lymph % (Auto) 8 L [place] % (Auto) 6 Eos % (Auto) 2 Baso % (Auto) 1 Neut # (Auto) 9.8 H Lymph # (Auto) 1.0 [place] # (Auto) 0.7 Eos # (Auto) 0.3 Baso # (Auto) 0.1 Immature Gran # (Auto) 0.58 H Absolute Nucleated RBC 0.00 Immature Gran % 5 H Nucleated RBC % 0 PT INR Puncture Site Right Radial ABG pH 7.43 ABG pCO2 32 ABG pO2 102 D ABG HCO3 21 ABG O2 Saturation 99 H ABG Base Excess -3 FiO2 21 Sodium 152 H 150 H Potassium 4.6 D Chloride 118 H Carbon Dioxide 19.4 L Anion Gap 13 BUN 37 H Creatinine 0.6 D Estim Creat Clear Calc 122.6 eGFR > 60 BUN/Creatinine Ratio 62 H Glucose 102 Calculated Osmolality 306 H Lactic Acid 1.7 Calcium 8.9 Corrected Calcium 9.6 Phosphorus 3.2 Magnesium 2.7 H Total Bilirubin 33.0 H* D AST 122 H ALT 135 H Alkaline Phosphatase 129 H D Total Protein 5.7 Albumin 3.1 L Globulin 2.6 Albumin/Globulin Ratio 1.2 Misc Test Result Platelets confirmed 05/20/24 05/20/24 05/20/24 08:45 12:12 15:58 WBC RBC Hgb Hct MCV MCH MCHC RDW Std Deviation Plt Count Neut % (Auto) Lymph % (Auto) [place] % (Auto) Eos % (Auto) Baso % (Auto) Neut # (Auto) Lymph # (Auto) [place] # (Auto) Eos # (Auto) Baso # (Auto) Immature Gran # (Auto) Absolute Nucleated RBC Immature Gran % Nucleated RBC % PT 20.2 H INR 1.9 H Puncture Site ABG pH ABG pCO2 ABG pO2 ABG HCO3 ABG O2 Saturation ABG Base Excess FiO2 Sodium 149 H 146 H 146 H Potassium Chloride Carbon Dioxide Anion Gap BUN Creatinine Estim Creat Clear Calc eGFR BUN/Creatinine Ratio Glucose Calculated Osmolality Lactic Acid Calcium Corrected Calcium Phosphorus Magnesium Total Bilirubin AST ALT Alkaline Phosphatase Total Protein Albumin Globulin Albumin/Globulin Ratio Misc Test Result 05/20/24 20:29 WBC RBC Hgb Hct MCV MCH MCHC RDW Std Deviation Plt Count Neut % (Auto) Lymph % (Auto) [place] % (Auto) Eos % (Auto) Baso % (Auto) Neut # (Auto) Lymph # (Auto) [place] # (Auto) Eos # (Auto) Baso # (Auto) Immature Gran # (Auto) Absolute Nucleated RBC Immature Gran % Nucleated RBC % PT INR Puncture Site ABG pH ABG pCO2 ABG pO2 ABG HCO3 ABG O2 Saturation ABG Base Excess FiO2 Sodium 149 H Potassium Chloride Carbon Dioxide Anion Gap BUN Creatinine Estim Creat Clear Calc eGFR BUN/Creatinine Ratio Glucose Calculated Osmolality Lactic Acid Calcium Corrected Calcium Phosphorus Magnesium Total Bilirubin AST ALT Alkaline Phosphatase Total Protein Albumin Globulin Albumin/Globulin Ratio Misc Test Result Impressions Impression: # Upper GI bleed secondary to esophageal varices requiring band ligation Continue current manage ABG Interpretation ABG results: 05/15/24 05/15/24 05/15/24 08:45 14:25 16:08 ABG pH 7.31 L 7.04 L* D 7.22 L D ABG pCO2 20 L 58 H D 35 D ABG pO2 116 H 330 H D 63 L D ABG HCO3 10 L 16 L 14 L ABG O2 Saturation 98 99 H 89 L ABG Base Excess -15 L -15 L -13 L 05/15/24 05/16/24 05/16/24 19:03 04:05 05:05 ABG pH 7.27 L 7.43 D 7.48 H ABG pCO2 27 L 56 H D 23 L D ABG pO2 85 D 160 H D 191 H D ABG HCO3 12 L 37 H 17 L ABG O2 Saturation 96 101 H 100 H ABG Base Excess -13 L 11 H -5 L 05/16/24 05/16/24 05/16/24 11:34 14:20 18:35 ABG pH 7.49 H 7.52 H 7.55 H ABG pCO2 27 L 26 L 25 L ABG pO2 173 H 160 H 201 H D ABG HCO3 21 21 21 ABG O2 Saturation 100 H 100 H 100 H ABG Base Excess -2 -1 0 05/16/24 05/17/24 05/19/24 21:53 11:34 05:05 ABG pH 7.55 H 7.54 H 7.44 D ABG pCO2 25 L 26 L 32 ABG pO2 206 H 177 H D 80 L D ABG HCO3 22 22 22 ABG O2 Saturation 100 H 100 H 97 ABG Base Excess 0 0 -2 05/20/24 04:55 ABG pH 7.43 ABG pCO2 32 ABG pO2 102 D ABG HCO3 21 ABG O2 Saturation 99 H ABG Base Excess -3 Assessment & Plan A&P Narrative Acute upper GI bleed in the form of melena and hematemesis Acute posthemorrhagic anemia in the setting of chronic liver disease with thrombocytopenia and coagulopathy Plan Continue supportive care Patient will have to be intubated to protect the airway as well as he is clenching his mouth and I cannot open his jaw to place bite block I have asked the intensive care unit specialist Dr. Bruner to intubate the patient paralyze him so I can proceed with the procedure she was kind enough to do so Octreotide drip at 50 mcg/h Protonix drip Serial CBC Will follow the patient Time Spent With Patient Time: Total time spent is greater than 50% in coordination of care (as documented) at patient's floor/unit and/or counseling patient: Procedures Arterial Line Size (Gauge): 18
[2024-05-21] VITALS (10 sets, daily range): BP systolic 140–161; BP diastolic 72–86; PULSE 70–83; RESP 13–97; TEMP 36.2–36.7; O2SAT 96–97
[2024-05-21 05:12] LABS: Basophils # (Auto) 0.1 Thou/mm3 (0.0-0.2); Basophils % (Auto) 1 % (0-2.5); Eosinophils # (Auto) 0.3 Thou/mm3 (0.0-0.5); Eosinophils % (Auto) 2 % (0-10); Hematocrit 32.2 % (41.0-53.0); Hemoglobin 10.7 g/dL (13.5-16.0); Immature Granulocytes % (Auto) 4 % (0-0); Immature Granulocytes Auto 0.62 Thou/mm3 (0.00-0.00); Lymphocytes # (Auto) 1.2 Thou/mm3 (1.0-4.8); Lymphocytes % (Auto) 8 % (10-50); Mean Corpuscular HGB Conc 33.2 g/dl (31.0-37.0); Mean Corpuscular Volume 87 fL (80-100); Monocytes # (Auto) 0.8 Thou/mm3 (0.0-0.8); Monocytes % (Auto) 5 % (0-12); Neutrophils # (Auto) 11.6 Thou/mm3 (1.8-7.7); Neutrophils % (Auto) 80 % (37-80); Nucleated Red Blood Cell # 0.03 Thou/mm3 (0.00-0.00); Nucleated Red Blood Cell % 0 /100 WBC (0); RDW Standard Deviation 57.9 fL (35.1-43.9); Red Blood Count 3.69 Miln/mm3 (4.50-5.90); White Blood Count 14.5 Thou/mm3 (3.8-10.6)
[2024-05-21 05:15] LABS: Platelet Count 56 Thou/mm3 (140-440)
[2024-05-21 05:25] LABS: Slide Review Platelets confirmed
[2024-05-21 05:44] LABS: Alanine Aminotransferase 112 U/L (10-49); Albumin, Serum 2.9 gm/dL (3.5-5.0); Albumin/Globulin Ratio 1.1 (1.2-2.2); Alkaline Phosphatase 143 U/L (46-116); Anion Gap 13 (7-16); Aspartate Amino Transferase 90 U/L (0-34); Blood Urea Nitrogen 40 mg/dL (9-23); Calcium 8.7 mg/dL (8.3-10.6); Calcium (Corrected) 9.6 mg/dL (8.5-10.1); Carbon Dioxide 18.5 mMol/L (20.0-31.0); Chloride 116 mMol/L (98-107); Globulin 2.7 gm/dL (2.3-3.5); Glucose 105 mg/dL (74-106); Magnesium 2.5 mg/dL (1.6-2.6); Osmolality,Calculated 302 (275-295); Phosphorous 3.5 mg/dL (2.4-5.1); Potassium 3.4 mMol/L (3.4-5.1); Sodium 147 mMol/L (136-145); Total Protein 5.6 gm/dL (5.7-8.2)
[2024-05-21 06:09] LABS: BUN/Creatinine Ratio 33 Ratio (12-20); Creatinine (Component) 1.2 mg/dL (0.6-1.3); Estimated Creatinine Clearance 61.1 mL/min (>60); eGFR > 60 See Note
[2024-05-21 06:20] LABS: Bilirubin,Total 33.1 mg/dL (0.3-1.2)
[2024-05-21] MEDS: PANTOPRAZOLE INJ 40 MG VIAL 80 MG IVP ×2 (08:14→21:58)
[2024-05-21] MEDS: rifaximin 550 MG TABLET NG ×2 (08:14→21:58)
[2024-05-21] MEDS: LACTULOSE SYRUP 20 GM/30 ML UDC NG ×3 (08:14→21:59)
[2024-05-21] MEDS: CHOLESTYRAMINE/SUCROSE 1 PKT EA PO ×2 (08:14→21:58)
[2024-05-21] MEDS: POTASSIUM CHLORIDE 10% 20 MEQ/15 ML UDC 40 MEQ PO (08:17)
[2024-05-21 09:53] LABS: Vancomycin,Trough 12.2 mcg/mL (5.0-10.0)
--- NOTE | 2024-05-21 11:55 | ESPR_ITS ---
Documentation for date of: 05/21/24 Subjective Subjective Interval history: Patient was seen and examined at the bedside. No acute overnight events were reported. Patient only had 1 bowel movement and abdominal appears to be slightly distended. Encouraged the patient on ambulation therefore PT was ordered. Vitals were stable this morning. Labs revealed leukocytosis, hemoglobin stable at 10.7. CHEM panel showed improvement in sodium 147. Potassium of 3.4. Bicarb 18.5. Kidney functions slightly worsened however possibility of error from lab for yesterday kidney functions. T. bili continues to remain elevated at 33.1. Liver enzymes slightly getting better. Initial cultures were 2 out of 2 GPC however they were changed to 1 out of GPC now they are showing as 2 out of 2 GPC with 1 growing as Streptococcus anginosus pansensitive. Will continue with vancomycin. Patient only had 1 bowel movement therefore lactulose was increased to 3 times daily. Patient started on dysphagia 3 advanced diet. We are currently waiting on echo and EEG. ID is also following the case. PT saw the patient and recommended SNF for further rehab. Patient is agreeable to the plan. Exam Vital Signs Temp Pulse Resp BP Pulse Ox O2 Del Method O2 Flow Rate 97.4 F 82 16 155/76 H 97 Room Air 2 05/21/24 04:00 05/21/24 10:30 05/21/24 10:30 05/21/24 04:00 05/21/24 10:30 05/21/24 00:04 05/19/24 12:00 FiO2 30 05/19/24 08:00 Narrative Exam General: laying in bed comfortably, jaundiced HEENT: scleral icterus, NC/AT, mucous membranes moist Cardiovascular: regular rate and rhythm, S1/S2 present, no murmurs appreciated Pulmonary: coarse lung sounds appreciated, no wheezing or crackles Abdominal: distended, firm, non-tender, no rebound/guarding Musculoskeletal: normal ROM, no peripheral edema Skin: jaundiced, warm and dry, intact, no rashes Neuro: CN II-XII intact, no focal deficits Objective Labs 05/22/24 07:19 05/22/24 05:52 Labs: Laboratory Results - last 24 hr 05/20/24 05/20/24 05/20/24 12:12 15:58 20:29 WBC RBC Hgb Hct MCV MCH MCHC RDW Std Deviation Plt Count Neut % (Auto) Lymph % (Auto) [place] % (Auto) Eos % (Auto) Baso % (Auto) Neut # (Auto) Lymph # (Auto) [place] # (Auto) Eos # (Auto) Baso # (Auto) Immature Gran # (Auto) Absolute Nucleated RBC Immature Gran % Nucleated RBC % PT 20.2 H INR 1.9 H Sodium 146 H 146 H 149 H Potassium Chloride Carbon Dioxide Anion Gap BUN Creatinine Estim Creat Clear Calc eGFR BUN/Creatinine Ratio Glucose Calculated Osmolality Calcium Corrected Calcium Phosphorus Magnesium Total Bilirubin AST ALT Alkaline Phosphatase Total Protein Albumin Globulin Albumin/Globulin Ratio Vancomycin Trough Misc Test Result 05/21/24 05/21/24 04:34 09:16 WBC 14.5 H RBC 3.69 L Hgb 10.7 L Hct 32.2 L MCV 87 MCH 29.0 MCHC 33.2 RDW Std Deviation 57.9 H Plt Count 56 L Neut % (Auto) 80 Lymph % (Auto) 8 L [place] % (Auto) 5 Eos % (Auto) 2 Baso % (Auto) 1 Neut # (Auto) 11.6 H Lymph # (Auto) 1.2 [place] # (Auto) 0.8 Eos # (Auto) 0.3 Baso # (Auto) 0.1 Immature Gran # (Auto) 0.62 H Absolute Nucleated RBC 0.03 H Immature Gran % 4 H Nucleated RBC % 0 PT INR Sodium 147 H Potassium 3.4 D Chloride 116 H Carbon Dioxide 18.5 L Anion Gap 13 BUN 40 H Creatinine 1.2 D Estim Creat Clear Calc 61.1 eGFR > 60 BUN/Creatinine Ratio 33 H Glucose 105 Calculated Osmolality 302 H Calcium 8.7 Corrected Calcium 9.6 Phosphorus 3.5 Magnesium 2.5 Total Bilirubin 33.1 H* AST 90 H ALT 112 H Alkaline Phosphatase 143 H Total Protein 5.6 L Albumin 2.9 L Globulin 2.7 Albumin/Globulin Ratio 1.1 L Vancomycin Trough 12.2 H Misc Test Result Platelets confirmed ABG Interpretation ABG results: 05/15/24 05/15/24 05/15/24 08:45 14:25 16:08 ABG pH 7.31 L 7.04 L* D 7.22 L D ABG pCO2 20 L 58 H D 35 D ABG pO2 116 H 330 H D 63 L D ABG HCO3 10 L 16 L 14 L ABG O2 Saturation 98 99 H 89 L ABG Base Excess -15 L -15 L -13 L 05/15/24 05/16/24 05/16/24 19:03 04:05 05:05 ABG pH 7.27 L 7.43 D 7.48 H ABG pCO2 27 L 56 H D 23 L D ABG pO2 85 D 160 H D 191 H D ABG HCO3 12 L 37 H 17 L ABG O2 Saturation 96 101 H 100 H ABG Base Excess -13 L 11 H -5 L 05/16/24 05/16/24 05/16/24 11:34 14:20 18:35 ABG pH 7.49 H 7.52 H 7.55 H ABG pCO2 27 L 26 L 25 L ABG pO2 173 H 160 H 201 H D ABG HCO3 21 21 21 ABG O2 Saturation 100 H 100 H 100 H ABG Base Excess -2 -1 0 05/16/24 05/17/24 05/19/24 21:53 11:34 05:05 ABG pH 7.55 H 7.54 H 7.44 D ABG pCO2 25 L 26 L 32 ABG pO2 206 H 177 H D 80 L D ABG HCO3 22 22 22 ABG O2 Saturation 100 H 100 H 97 ABG Base Excess 0 0 -2 05/20/24 04:55 ABG pH 7.43 ABG pCO2 32 ABG pO2 102 D ABG HCO3 21 ABG O2 Saturation 99 H ABG Base Excess -3 Quality Measures Quality Measures VTE prophylaxis Assessment & Plan Assessment Current Active Medications: Generic Name Dose Route Start Last Admin Trade Name Freq PRN Reason Stop Dose Admin Acetaminophen 650 mg 05/15/24 01:17 Acetaminophen Supp 650 Mg Supp MI 06/14/24 01:16 Q6HR PRN pain and Fever > 100.4 Albuterol/Ipratropium 3 ml 05/20/24 15:53 Albuterol/Ipratropium (Duoneb) Rt Irina 3 Ml Nebu INH 06/19/24 15:52 Q6HRRT PRN SHORTNESS OF BREATH OR WHEEZE Cholestyramine Resin 1 pkt 05/18/24 21:00 05/21/24 08:14 Cholestyramine/Sucrose 1 Pkt Ea PO 06/17/24 20:59 1 pkt BID SREE Administration Dextrose 25 ml 05/15/24 01:22 Dextrose 50%-Water Inj 50 Ml Syringe IV 06/14/24 01:21 Q15MIN PRN BG 50-70 responsive npo pt Dextrose 50 ml 05/15/24 01:22 Dextrose 50%-Water Inj 50 Ml Syringe IV 06/14/24 01:21 Q15MIN PRN BG <50 OR BG <70 & pt unresponsive Glucagon 1 mg 05/15/24 01:22 Glucagon Inj 1 Mg Vial IM Q15MIN PRN BG <70, and no IV access Hydralazine HCl 25 mg 05/18/24 22:00 05/19/24 13:17 Hydralazine Hcl 25 Mg Tablet PO 06/17/24 21:59 Not Given TID [facility] Vancomycin/Sodium Chloride 200 mls @ 120 mls/hr 05/21/24 10:30 Vancomycin/Ns 1 Gm Ivpb IV 05/28/24 10:29 QDAY@1000 [facility] Insulin Human Lispro 0 unit 05/20/24 17:30 05/21/24 08:36 Insulin Lispro (Admelog) 1 Unit/0.01 Ml Unit SC 06/19/24 17:29 Not Given ACHS [facility] Protocol Lactulose 20 gm 05/21/24 14:00 Lactulose Syrup 20 Gm/30 Ml Udc NG 06/20/24 13:59 TID [facility] Protocol Ondansetron HCl 4 mg 05/15/24 01:17 05/15/24 05:46 Ondansetron Inj 2 Mg/Ml Inj 2 Ml IV 06/14/24 01:16 4 mg Q6H PRN Administration NAUSEA OR VOMITING Protocol Pantoprazole Sodium 80 mg 05/15/24 21:00 05/21/24 08:14 Pantoprazole Inj 40 Mg Vial IVP 06/14/24 20:59 80 mg BID [facility] Administration Pharmacy Consult 1 each 05/15/24 17:30 Vancomycin Pharmacy To Dose 1 Each Each IV 06/14/24 17:29 QDAY PRN CONSULT Rifaximin 550 mg 05/16/24 10:45 05/21/24 08:14 Rifaximin 550 Mg Tablet NG 05/23/24 10:44 550 mg BID [facility] Administration Plan Benjamin Villarreal is a 59-year-old male with PMHX of alcohol use disorder, esophageal varices s/p banding, hypertension, hyperlipidemia, DM2, HFpEF (EF 55 to 60%) and biliary dyskinesia who was admitted 05/15 after coming to ED with complaints of black starry stools and witnessed bloody emesis. On 05/15, patient had rapid response for large volume, dark-colored bloody stool and was upgraded to ICU for pressor support and mechanical ventilation for airway management. He has thus far been extubated and off pressors and downgraded to floors on 05/19 for further management. He has received a total of 8 units PRBC, 2 units FFP, and 2 units of platelets. Upon evaluation, patient is alert and responding to questions, and following commands. He does not have any complaints at this time, including abdominal pain, nausea, or vomiting. #Acute decompensated cirrhosis #Esophageal varices status post band ligation #Hemorrhagic shock, resolved Initial hemoglobin of 5.8 and received total of 8 units PRBC, 2 units FFP, and 2 units platelets. Underwent EGD on this admission that showed grade 2 varices that were banded as well as diffuse mucosal oozing in setting of hypertensive portal gastropathy with blood clots in proximal body of stomach. Attempted transfer for TIPS procedure but denied by multiple hospitals so transfer DC'd. Received 4 days octreotide drip but discontinued due to bradycardia and currently on Protonix 80 mg IV twice daily. ? GI following, appreciate recommendations ? Hemoglobin remained stable ? Octreotide discontinued due to bradycardia ? Protonix 80 mg IV twice daily #Hepatic encephalopathy #Hyperammonemia ? Increased lactulose 20 g via NG 3 times daily ? Titrate to 2-3 bowel movements ? Rifaximin 550 mg via NG BID #Generalized weakness ? PT evaluation ordered ? PT recommended SNF placement for acute rehab #Cirrhosis secondary to EtOH #History of alcohol use disorder #Thrombocytopenia #Hypoalbuminemia #Transaminitis MELD Na score 31 -> 52.6% estmated 3-month mortality Child-Garcia score 11 (Child class C) -> 1-3 year life epectancy and 82% tamara- operative abdominal surgery mortality ? Continue to monitor #GPC bacteremia ? 1 out of 2 BCx from 05/14 Streptococcus anginosus pansensitive. ? Repeat blood cultures from 05/16 negative ?Continue vancomycin ? Follow-up echo #Hypertonic hypernatremia, improving Free water deficit of 1.5 L with goal sodium of 145, previously on 150 cc/h water flushes but NG tube has since been discontinued. Suspected to be due to significant GI losses while on lactulose. ? Sodium improved today ? Continue with oral hydration or IVF if needed #? Seizures EEG on 05/19 obscured from artifact and will follow-up repeat EEG. ? Neurology consulted, appreciate recommendations ? Follow-up EEG and neurology recommendations #Acute kidney injury, likely prerenal #Hypokalemia, resolved #Hyperchloremia, improving #Hypomagnesemia, resolved ICU team gave albumin challenge to workup possible hepatorenal syndrome and creatinine improved, thus likely prerenal JEANIE. ? Avoid nephrotoxic agents, renally dose medications ?Urine output around 1 L net -625, 05/21 #Hyperbilirubinemia ? Cholestyramine 1 packet PO BID #HFpEF Hold on diuresis for now. Good urine output. #Rebound hypertension Noted to be hypertensive after discontinuing pressors and started on hydralazine 25 mg p.o. 3 times daily. However, BP at bedside was 105/56. ? Hydralazine held ? If BP rises, can resume #Type 2 diabetes mellitus A1c 6.7% on 04/2024. ? SSI ? Hypoglycemic protocol in place Hospital management: Disposition: downgraded from ICU, managing hypertonic hypernatremia, JEANIE, and UGIB Fluids: none Diet: Dysphagia 3 advanced Lines: PIV DVT prophylaxis: SCDs GI prophylaxis: pantoprazole 80 mg IV BID Sanchez: placed CODE STATUS: full code Plan of care was discussed with attending physician, Dr. Supa Cooper MD, PGY 2 Attending Provider Attestation/Addendum I have discussed and was present for the essential components of the history, physical examination, diagnosis, and treatment plan with the resident. I agree with the patient's care as documented by the resident and amended herein by me. Nick Cowart DO. Although this document has been carefully reviewed, there may still be some phonetic and other typographical errors. These errors are purely grammatical due to imperfections in the software program and should not be construed in any way to compromise the substance of the patient's medical care during this visit.
--- NOTE | 2024-05-21 11:56 | ESPR_ITS ---
Documentation for date of: 05/21/24 Subjective Subjective Interval history: Patient seen and assessed at bedside this morning in ICU. Patient AAO x 4. Patient states he has not had a drink in the past 20 days. Denies any active signs of bleeding. Exam Vital Signs Temp Pulse Resp BP Pulse Ox O2 Del Method O2 Flow Rate 97.4 F 82 16 155/76 H 97 Room Air 2 05/21/24 04:00 05/21/24 10:30 05/21/24 10:30 05/21/24 04:00 05/21/24 10:30 05/21/24 00:04 05/19/24 12:00 FiO2 30 05/19/24 08:00 Narrative Exam General: laying in bed comfortably, jaundiced HEENT: scleral icterus, NC/AT, mucous membranes moist Cardiovascular: regular rate and rhythm, S1/S2 present, no murmurs appreciated Pulmonary: coarse lung sounds appreciated, no wheezing or crackles Abdominal: distended, firm, non-tender, no rebound/guarding Musculoskeletal: normal ROM, no peripheral edema. Tremor upper extremities. Skin: jaundiced, warm and dry, intact, no rashes Neuro: CN II-XII intact, no focal deficits AOx4. Objective Labs 05/22/24 07:19 05/22/24 05:52 Labs: Laboratory Results - last 24 hr 05/20/24 05/20/24 05/20/24 12:12 15:58 20:29 WBC RBC Hgb Hct MCV MCH MCHC RDW Std Deviation Plt Count Neut % (Auto) Lymph % (Auto) [place] % (Auto) Eos % (Auto) Baso % (Auto) Neut # (Auto) Lymph # (Auto) [place] # (Auto) Eos # (Auto) Baso # (Auto) Immature Gran # (Auto) Absolute Nucleated RBC Immature Gran % Nucleated RBC % PT 20.2 H INR 1.9 H Sodium 146 H 146 H 149 H Potassium Chloride Carbon Dioxide Anion Gap BUN Creatinine Estim Creat Clear Calc eGFR BUN/Creatinine Ratio Glucose Calculated Osmolality Calcium Corrected Calcium Phosphorus Magnesium Total Bilirubin AST ALT Alkaline Phosphatase Total Protein Albumin Globulin Albumin/Globulin Ratio Vancomycin Trough Misc Test Result 05/21/24 05/21/24 04:34 09:16 WBC 14.5 H RBC 3.69 L Hgb 10.7 L Hct 32.2 L MCV 87 MCH 29.0 MCHC 33.2 RDW Std Deviation 57.9 H Plt Count 56 L Neut % (Auto) 80 Lymph % (Auto) 8 L [place] % (Auto) 5 Eos % (Auto) 2 Baso % (Auto) 1 Neut # (Auto) 11.6 H Lymph # (Auto) 1.2 [place] # (Auto) 0.8 Eos # (Auto) 0.3 Baso # (Auto) 0.1 Immature Gran # (Auto) 0.62 H Absolute Nucleated RBC 0.03 H Immature Gran % 4 H Nucleated RBC % 0 PT INR Sodium 147 H Potassium 3.4 D Chloride 116 H Carbon Dioxide 18.5 L Anion Gap 13 BUN 40 H Creatinine 1.2 D Estim Creat Clear Calc 61.1 eGFR > 60 BUN/Creatinine Ratio 33 H Glucose 105 Calculated Osmolality 302 H Calcium 8.7 Corrected Calcium 9.6 Phosphorus 3.5 Magnesium 2.5 Total Bilirubin 33.1 H* AST 90 H ALT 112 H Alkaline Phosphatase 143 H Total Protein 5.6 L Albumin 2.9 L Globulin 2.7 Albumin/Globulin Ratio 1.1 L Vancomycin Trough 12.2 H Misc Test Result Platelets confirmed ABG Interpretation ABG results: 05/15/24 05/15/24 05/15/24 08:45 14:25 16:08 ABG pH 7.31 L 7.04 L* D 7.22 L D ABG pCO2 20 L 58 H D 35 D ABG pO2 116 H 330 H D 63 L D ABG HCO3 10 L 16 L 14 L ABG O2 Saturation 98 99 H 89 L ABG Base Excess -15 L -15 L -13 L 05/15/24 05/16/24 05/16/24 19:03 04:05 05:05 ABG pH 7.27 L 7.43 D 7.48 H ABG pCO2 27 L 56 H D 23 L D ABG pO2 85 D 160 H D 191 H D ABG HCO3 12 L 37 H 17 L ABG O2 Saturation 96 101 H 100 H ABG Base Excess -13 L 11 H -5 L 05/16/24 05/16/24 05/16/24 11:34 14:20 18:35 ABG pH 7.49 H 7.52 H 7.55 H ABG pCO2 27 L 26 L 25 L ABG pO2 173 H 160 H 201 H D ABG HCO3 21 21 21 ABG O2 Saturation 100 H 100 H 100 H ABG Base Excess -2 -1 0 05/16/24 05/17/24 05/19/24 21:53 11:34 05:05 ABG pH 7.55 H 7.54 H 7.44 D ABG pCO2 25 L 26 L 32 ABG pO2 206 H 177 H D 80 L D ABG HCO3 22 22 22 ABG O2 Saturation 100 H 100 H 97 ABG Base Excess 0 0 -2 05/20/24 04:55 ABG pH 7.43 ABG pCO2 32 ABG pO2 102 D ABG HCO3 21 ABG O2 Saturation 99 H ABG Base Excess -3 Quality Measures Quality Measures none Assessment & Plan Assessment Current Active Medications: Generic Name Dose Route Start Last Admin Trade Name Freq PRN Reason Stop Dose Admin Acetaminophen 650 mg 05/15/24 01:17 Acetaminophen Supp 650 Mg Supp ND 06/14/24 01:16 Q6HR PRN pain and Fever > 100.4 Albuterol/Ipratropium 3 ml 05/20/24 15:53 Albuterol/Ipratropium (Duoneb) Rt Irina 3 Ml Nebu INH 06/19/24 15:52 Q6HRRT PRN SHORTNESS OF BREATH OR WHEEZE Cholestyramine Resin 1 pkt 05/18/24 21:00 05/21/24 08:14 Cholestyramine/Sucrose 1 Pkt Ea PO 06/17/24 20:59 1 pkt BID SREE Administration Dextrose 25 ml 05/15/24 01:22 Dextrose 50%-Water Inj 50 Ml Syringe IV 06/14/24 01:21 Q15MIN PRN BG 50-70 responsive npo pt Dextrose 50 ml 05/15/24 01:22 Dextrose 50%-Water Inj 50 Ml Syringe IV 06/14/24 01:21 Q15MIN PRN BG <50 OR BG <70 & pt unresponsive Glucagon 1 mg 05/15/24 01:22 Glucagon Inj 1 Mg Vial IM Q15MIN PRN BG <70, and no IV access Hydralazine HCl 25 mg 05/18/24 22:00 05/19/24 13:17 Hydralazine Hcl 25 Mg Tablet PO 06/17/24 21:59 Not Given TID SREE Vancomycin/Sodium Chloride 200 mls @ 120 mls/hr 05/21/24 10:30 Vancomycin/Ns 1 Gm Ivpb IV 05/28/24 10:29 QDAY@1000 COUNTS INCLUDE 234 BEDS AT THE [facility] Insulin Human Lispro 0 unit 05/20/24 17:30 05/21/24 08:36 Insulin Lispro (Admelog) 1 Unit/0.01 Ml Unit SC 06/19/24 17:29 Not Given ACHS COUNTS INCLUDE 234 BEDS AT THE [facility] Protocol Lactulose 20 gm 05/21/24 14:00 Lactulose Syrup 20 Gm/30 Ml Udc NG 06/20/24 13:59 TID COUNTS INCLUDE 234 BEDS AT THE [facility] Protocol Ondansetron HCl 4 mg 05/15/24 01:17 05/15/24 05:46 Ondansetron Inj 2 Mg/Ml Inj 2 Ml IV 06/14/24 01:16 4 mg Q6H PRN Administration NAUSEA OR VOMITING Protocol Pantoprazole Sodium 80 mg 05/15/24 21:00 05/21/24 08:14 Pantoprazole Inj 40 Mg Vial IVP 06/14/24 20:59 80 mg BID SREE Administration Pharmacy Consult 1 each 05/15/24 17:30 Vancomycin Pharmacy To Dose 1 Each Each IV 06/14/24 17:29 QDAY PRN CONSULT Rifaximin 550 mg 05/16/24 10:45 05/21/24 08:14 Rifaximin 550 Mg Tablet NG 05/23/24 10:44 550 mg BID COUNTS INCLUDE 234 BEDS AT THE [facility] Administration Plan #Acute encephalopathy Metabolic VS VS infectious VS toxic Continue with lactulose and rifaximin Continue with antibiotics Follow-up with repeat EEG as the initial EEG showed diffuse slowing with electrode artifact in T3 #Upper GI bleed #Anemia #Cirrhosis #Diabetes mellitus #Hypertension #Hyperbilirubinemia #Transaminitis #Bacteremia #Hepatic encephalopathy Continue management per primary team Case discussed with attending Dr Michelle Valdovinos MD PGY3 Attending Provider Attestation/Addendum I personally have seen and examined the patient at the bedside and I agree with resident's findings, assessment and plan of care. Patient's mental status is back to baseline. No focal neurological deficit noted. Will continue to monitor him for any recurrent hepatic encephalopathy with his underlying alcoholic liver disease. Follow-up with repeat EEG.
[2024-05-21] MEDS: VANCOMYCIN/NS 1 GM IVPB 200 ML IV (12:46)
--- NOTE | 2024-05-21 15:26 | PC.SS ---
Addendum entered by SONIA Phillips 05/21/24 16:43: Patient wants [facility], notified [facility] staff. Patient will require authorization. Addendum entered by SONIA Phillips 05/21/24 16:05: SS follow up: attempted contact with patients sonBenjamin [phone], however no answer and voicemail was provided. Addendum entered by SONIA Phillips 05/21/24 16:03: PT recommended SNF. Patient agreeable. SNF inquiry sent via [employer]. [facility] completed. Original Note: Rounding note: pending echo and PT evaluation and BM's.
--- NOTE | 2024-05-21 18:28 | ESPR_ITS ---
Documentation for date of: 05/21/24 Subjective Subjective Interval history: Patient evaluated hemoglobin hematocrit 10.7 and 32.2 Exam Vital Signs Temp Pulse Resp BP Pulse Ox O2 Del Method O2 Flow Rate 98.0 F 74 19 140/86 H 97 Room Air 2 05/21/24 16:00 05/21/24 16:00 05/21/24 16:00 05/21/24 16:00 05/21/24 16:00 05/21/24 16:00 05/19/24 12:00 FiO2 30 05/19/24 08:00 Routine Abdominal Exam Comments: Soft nontender Objective Labs 05/21/24 04:34 05/21/24 04:34 Labs: Laboratory Results - last 24 hr 05/20/24 05/21/24 05/21/24 20:29 04:34 09:16 WBC 14.5 H RBC 3.69 L Hgb 10.7 L Hct 32.2 L MCV 87 MCH 29.0 MCHC 33.2 RDW Std Deviation 57.9 H Plt Count 56 L Neut % (Auto) 80 Lymph % (Auto) 8 L [place] % (Auto) 5 Eos % (Auto) 2 Baso % (Auto) 1 Neut # (Auto) 11.6 H Lymph # (Auto) 1.2 [place] # (Auto) 0.8 Eos # (Auto) 0.3 Baso # (Auto) 0.1 Immature Gran # (Auto) 0.62 H Absolute Nucleated RBC 0.03 H Immature Gran % 4 H Nucleated RBC % 0 Sodium 149 H 147 H Potassium 3.4 D Chloride 116 H Carbon Dioxide 18.5 L Anion Gap 13 BUN 40 H Creatinine 1.2 D Estim Creat Clear Calc 61.1 eGFR > 60 BUN/Creatinine Ratio 33 H Glucose 105 Calculated Osmolality 302 H Calcium 8.7 Corrected Calcium 9.6 Phosphorus 3.5 Magnesium 2.5 Total Bilirubin 33.1 H* AST 90 H ALT 112 H Alkaline Phosphatase 143 H Total Protein 5.6 L Albumin 2.9 L Globulin 2.7 Albumin/Globulin Ratio 1.1 L Vancomycin Trough 12.2 H Misc Test Result Platelets confirmed Impressions Impression: Upper GI bleed status post band ligation of esophageal varices Continue to monitor CBC ABG Interpretation ABG results: 05/15/24 05/15/24 05/15/24 08:45 14:25 16:08 ABG pH 7.31 L 7.04 L* D 7.22 L D ABG pCO2 20 L 58 H D 35 D ABG pO2 116 H 330 H D 63 L D ABG HCO3 10 L 16 L 14 L ABG O2 Saturation 98 99 H 89 L ABG Base Excess -15 L -15 L -13 L 05/15/24 05/16/24 05/16/24 19:03 04:05 05:05 ABG pH 7.27 L 7.43 D 7.48 H ABG pCO2 27 L 56 H D 23 L D ABG pO2 85 D 160 H D 191 H D ABG HCO3 12 L 37 H 17 L ABG O2 Saturation 96 101 H 100 H ABG Base Excess -13 L 11 H -5 L 05/16/24 05/16/24 05/16/24 11:34 14:20 18:35 ABG pH 7.49 H 7.52 H 7.55 H ABG pCO2 27 L 26 L 25 L ABG pO2 173 H 160 H 201 H D ABG HCO3 21 21 21 ABG O2 Saturation 100 H 100 H 100 H ABG Base Excess -2 -1 0 05/16/24 05/17/24 05/19/24 21:53 11:34 05:05 ABG pH 7.55 H 7.54 H 7.44 D ABG pCO2 25 L 26 L 32 ABG pO2 206 H 177 H D 80 L D ABG HCO3 22 22 22 ABG O2 Saturation 100 H 100 H 97 ABG Base Excess 0 0 -2 05/20/24 04:55 ABG pH 7.43 ABG pCO2 32 ABG pO2 102 D ABG HCO3 21 ABG O2 Saturation 99 H ABG Base Excess -3 Assessment & Plan A&P Narrative Acute upper GI bleed in the form of melena and hematemesis Acute posthemorrhagic anemia in the setting of chronic liver disease with thrombocytopenia and coagulopathy Plan Continue supportive care Patient will have to be intubated to protect the airway as well as he is clenching his mouth and I cannot open his jaw to place bite block I have asked the intensive care unit specialist Dr. Bruner to intubate the patient paralyze him so I can proceed with the procedure she was kind enough to do so Octreotide drip at 50 mcg/h Protonix drip Serial CBC Will follow the patient Time Spent With Patient Time: Total time spent is greater than 50% in coordination of care (as documented) at patient's floor/unit and/or counseling patient: Procedures Arterial Line Size (Gauge): 18
[2024-05-22] VITALS (7 sets, daily range): BP systolic 114–166; BP diastolic 71–99; PULSE 66–86; RESP 16–94; TEMP 35.8–36.1; O2SAT 94–96; BMI 29.3
[2024-05-22] MEDS: LACTULOSE SYRUP 20 GM/30 ML UDC PO ×2 (05:26→14:50)
[2024-05-22 06:53] LABS: Alanine Aminotransferase 104 U/L (10-49); Albumin, Serum 2.8 gm/dL (3.5-5.0); Alkaline Phosphatase 157 U/L (46-116); Anion Gap 12 (7-16); Aspartate Amino Transferase 97 U/L (0-34); BUN/Creatinine Ratio 25 Ratio (12-20); Blood Urea Nitrogen 35 mg/dL (9-23); Calcium 8.9 mg/dL (8.3-10.6); Calcium (Corrected) 9.9 mg/dL (8.5-10.1); Carbon Dioxide 16.8 mMol/L (20.0-31.0); Chloride 118 mMol/L (98-107); Creatinine (Component) 1.4 mg/dL (0.6-1.3); Estimated Creatinine Clearance 54.2 mL/min (>60); Globulin 2.9 gm/dL (2.3-3.5); Glucose 119 mg/dL (74-106); Magnesium 2.6 mg/dL (1.6-2.6); Osmolality,Calculated 301 (275-295); Phosphorous 3.3 mg/dL (2.4-5.1); Potassium 4.1 mMol/L (3.4-5.1); Sodium 147 mMol/L (136-145); Total Protein 5.7 gm/dL (5.7-8.2); eGFR 58 See Note
[2024-05-22 07:01] LABS: Bilirubin,Total 35.2 mg/dL (0.3-1.2)
[2024-05-22 07:33] LABS: Basophils # (Auto) 0.1 Thou/mm3 (0.0-0.2); Basophils % (Auto) 1 % (0-2.5); Eosinophils # (Auto) 0.2 Thou/mm3 (0.0-0.5); Eosinophils % (Auto) 1 % (0-10); Hematocrit 36.4 % (41.0-53.0); Hemoglobin 12.3 g/dL (13.5-16.0); Immature Granulocytes % (Auto) 2 % (0-0); Lymphocytes # (Auto) 1.2 Thou/mm3 (1.0-4.8); Lymphocytes % (Auto) 5 % (10-50); Mean Corpuscular HGB Conc 33.8 g/dl (31.0-37.0); Mean Corpuscular Hemoglobin 29.3 pg (25.0-35.0); Mean Corpuscular Volume 87 fL (80-100); Monocytes # (Auto) 0.9 Thou/mm3 (0.0-0.8); Monocytes % (Auto) 4 % (0-12); Neutrophils # (Auto) 19.9 Thou/mm3 (1.8-7.7); Neutrophils % (Auto) 88 % (37-80); Nucleated Red Blood Cell # 0.02 Thou/mm3 (0.00-0.00); Nucleated Red Blood Cell % 0 /100 WBC (0); White Blood Count 22.7 Thou/mm3 (3.8-10.6)
[2024-05-22 07:40] LABS: Platelet Count 56 Thou/mm3 (140-440)
[2024-05-22] MEDS: RINGERS LACTATED 1000 ML 1,000 ML 250 ML IV (09:05)
[2024-05-22] MEDS: PANTOPRAZOLE INJ 40 MG VIAL 80 MG IVP ×2 (09:05→22:05)
[2024-05-22] MEDS: SODIUM BICARBONATE 650 MG TABLET PO ×2 (09:05→22:05)
[2024-05-22] MEDS: rifaximin 550 MG TABLET PO ×2 (09:05→22:05)
[2024-05-22] MEDS: cefTRIAXone/D5w 1gm IV premix 1 GM/50 ML BAG IV (09:05)
[2024-05-22] MEDS: INSULIN LISPRO (AdmeLOG) 1 UNIT/0.01 ML UNIT SC (09:06)
[2024-05-22] MEDS: CHOLESTYRAMINE/SUCROSE 1 PKT EA PO ×2 (09:06→22:05)
[2024-05-22 09:28] LABS: Slide Review Platelets confirmed
[2024-05-22 09:57] LABS: Base Excess, Venous -10 (-3-3); O2 Saturation, Venous 99 % (96-97); PCO2, Venous 25 mmHg (36-56); PO2, Venous 120 mmHg (15-58); pH, Venous 7.36 (7.33-7.66)
[2024-05-22] MEDS: VANCOMYCIN/NS 1 GM IVPB 200 ML IV (12:23)
--- NOTE | 2024-05-22 12:43 | PD.RESPRO ---
Documentation for date of: 05/22/24 Subjective Subjective Interval history: Benjamin Villarreal is a 59-year-old male with PMHX of alcohol use disorder, esophageal varices s/p banding, hypertension, hyperlipidemia, DM2, HFpEF (EF 55 to 60%) and biliary dyskinesia who was admitted 05/15 after coming to ED with complaints of black starry stools and witnessed bloody emesis. Upon night resident evaluation, unable to provide history and was only oriented to self and followed simple commands only. Per chart review, patient had been having black starry stools for 4 days and was hypoxic when EMS evaluated patient. Stated that he has not drank alcohol for the past 15 days. Of note, he was recently discharged from hospital after coming with similar complaints and underwent EGD that revealed grade 3 esophageal varices which were banded and ligated. On 05/15, patient had rapid response for large volume, dark-colored bloody stool and was upgraded to ICU for pressor support and mechanical ventilation for airway management. He has thus far been extubated and off pressors and downgraded to floors on 05/19 for further management. He has received a total of 8 units PRBC, 2 units FFP, and 2 units of platelets. 05/20: No acute overnight events reported. Seen and examined at bedside in ICU as telemetry overflow. States that he does not have any complaints at this time, including abdominal pain, nausea, or vomiting. However, abdominal x-ray showed mild to moderate small bowel ileus. Neurology following and wants to follow-up with another EEG given prior EEG abnormal findings. 05/22: No acute overnight events noted. Seen and examined at bedside in telemetry. Patient states that he does not have a complaint at this time. Abdomen continues to be distended and firm but patient denies nausea, vomiting, abdominal pain and states that he has been burping and passing gas. Exam Vital Signs Temp Pulse Resp BP Pulse Ox O2 Del Method O2 Flow Rate 96.8 F 66 21 H 166/91 H 94 L Room Air 2 05/22/24 08:00 05/22/24 11:02 05/22/24 11:02 05/22/24 08:00 05/22/24 11:02 05/22/24 08:00 05/22/24 00:00 FiO2 30 05/22/24 00:00 Narrative Exam General: laying in bed comfortably, jaundiced HEENT: scleral icterus, NC/AT, mucous membranes moist Cardiovascular: regular rate and rhythm, S1/S2 present, no murmurs appreciated Pulmonary: coarse lung sounds appreciated, no wheezing or crackles Abdominal: distended, firm, non-tender, no rebound/guarding Musculoskeletal: normal ROM, no peripheral edema Skin: jaundiced, warm and dry, intact, no rashes Neuro: CN II-XII intact, no focal deficits Objective Labs 05/22/24 07:19 05/22/24 05:52 Labs: Laboratory Results - last 24 hr 05/22/24 05/22/24 05/22/24 05:52 07:19 09:46 WBC 22.7 H D RBC 4.20 L Hgb 12.3 L Hct 36.4 L MCV 87 MCH 29.3 MCHC 33.8 RDW Std Deviation 62.0 H Plt Count 56 L Neut % (Auto) 88 H Lymph % (Auto) 5 L [place] % (Auto) 4 Eos % (Auto) 1 Baso % (Auto) 1 Neut # (Auto) 19.9 H Lymph # (Auto) 1.2 [place] # (Auto) 0.9 H Eos # (Auto) 0.2 Baso # (Auto) 0.1 Immature Gran # (Auto) 0.40 H Absolute Nucleated RBC 0.02 H Immature Gran % 2 H Nucleated RBC % 0 VBG pH 7.36 VBG pCO2 25 L VBG pO2 120 H VBG O2 Sat (Maurisio) 99 H VBG Base Excess -10 L Sodium 147 H Potassium 4.1 D Chloride 118 H Carbon Dioxide 16.8 L Anion Gap 12 BUN 35 H Creatinine 1.4 H Estim Creat Clear Calc 54.2 L eGFR 58 L BUN/Creatinine Ratio 25 H Glucose 119 H Calculated Osmolality 301 H Calcium 8.9 Corrected Calcium 9.9 Phosphorus 3.3 Magnesium 2.6 Total Bilirubin 35.2 H* D AST 97 H ALT 104 H Alkaline Phosphatase 157 H Total Protein 5.7 Albumin 2.8 L Globulin 2.9 Albumin/Globulin Ratio 1.0 L Misc Test Result Platelets confirmed ABG Interpretation ABG results: 05/15/24 05/15/24 05/15/24 08:45 14:25 16:08 ABG pH 7.31 L 7.04 L* D 7.22 L D ABG pCO2 20 L 58 H D 35 D ABG pO2 116 H 330 H D 63 L D ABG HCO3 10 L 16 L 14 L ABG O2 Saturation 98 99 H 89 L ABG Base Excess -15 L -15 L -13 L VBG pH VBG pCO2 VBG pO2 VBG Base Excess 05/15/24 05/16/24 05/16/24 19:03 04:05 05:05 ABG pH 7.27 L 7.43 D 7.48 H ABG pCO2 27 L 56 H D 23 L D ABG pO2 85 D 160 H D 191 H D ABG HCO3 12 L 37 H 17 L ABG O2 Saturation 96 101 H 100 H ABG Base Excess -13 L 11 H -5 L VBG pH VBG pCO2 VBG pO2 VBG Base Excess 05/16/24 05/16/24 05/16/24 11:34 14:20 18:35 ABG pH 7.49 H 7.52 H 7.55 H ABG pCO2 27 L 26 L 25 L ABG pO2 173 H 160 H 201 H D ABG HCO3 21 21 21 ABG O2 Saturation 100 H 100 H 100 H ABG Base Excess -2 -1 0 VBG pH VBG pCO2 VBG pO2 VBG Base Excess 05/16/24 05/17/24 05/19/24 21:53 11:34 05:05 ABG pH 7.55 H 7.54 H 7.44 D ABG pCO2 25 L 26 L 32 ABG pO2 206 H 177 H D 80 L D ABG HCO3 22 22 22 ABG O2 Saturation 100 H 100 H 97 ABG Base Excess 0 0 -2 VBG pH VBG pCO2 VBG pO2 VBG Base Excess 05/20/24 05/22/24 04:55 09:46 ABG pH 7.43 ABG pCO2 32 ABG pO2 102 D ABG HCO3 21 ABG O2 Saturation 99 H ABG Base Excess -3 VBG pH 7.36 VBG pCO2 25 L VBG pO2 120 H VBG Base Excess -10 L Quality Measures Quality Measures VTE prophylaxis Assessment & Plan Assessment Current Active Medications: Generic Name Dose Route Start Last Admin Trade Name Freq PRN Reason Stop Dose Admin Acetaminophen 650 mg 05/15/24 01:17 Acetaminophen Supp 650 Mg Supp SC 06/14/24 01:16 Q6HR PRN pain and Fever > 100.4 Albuterol/Ipratropium 3 ml 05/20/24 15:53 Albuterol/Ipratropium (Duoneb) Rt Irina 3 Ml Nebu INH 06/19/24 15:52 Q6HRRT PRN SHORTNESS OF BREATH OR WHEEZE Cholestyramine Resin 1 pkt 05/18/24 21:00 05/22/24 09:06 Cholestyramine/Sucrose 1 Pkt Ea PO 06/17/24 20:59 1 pkt BID SREE Administration Dextrose 25 ml 05/15/24 01:22 Dextrose 50%-Water Inj 50 Ml Syringe IV 06/14/24 01:21 Q15MIN PRN BG 50-70 responsive npo pt Dextrose 50 ml 05/15/24 01:22 Dextrose 50%-Water Inj 50 Ml Syringe IV 06/14/24 01:21 Q15MIN PRN BG <50 OR BG <70 & pt unresponsive Glucagon 1 mg 05/15/24 01:22 Glucagon Inj 1 Mg Vial IM Q15MIN PRN BG <70, and no IV access Hydralazine HCl 25 mg 05/18/24 22:00 05/19/24 13:17 Hydralazine Hcl 25 Mg Tablet PO 06/17/24 21:59 Not Given TID SREE Vancomycin/Sodium Chloride 200 mls @ 120 mls/hr 05/21/24 10:30 05/22/24 12:23 Vancomycin/Ns 1 Gm Ivpb IV 05/28/24 10:29 120 mls/hr QDAY@1000 SREE Administration Ceftriaxone Sodium/Dextrose 1 gm in 50 mls @ 100 mls/hr 05/22/24 07:50 05/22/24 09:05 Rocephin/D5w 1gm Iv Premix IV 05/29/24 07:49 100 mls/hr QDAY SREE Administration Insulin Human Lispro 0 unit 05/20/24 17:30 05/22/24 11:28 Insulin Lispro (Admelog) 1 Unit/0.01 Ml Unit SC 06/19/24 17:29 Not Given ACHS SREE Protocol Lactulose 20 gm 05/22/24 06:00 05/22/24 05:26 Lactulose Syrup 20 Gm/30 Ml Udc PO 06/21/24 05:59 20 gm TID SREE Administration Protocol Ondansetron HCl 4 mg 05/15/24 01:17 05/15/24 05:46 Ondansetron Inj 2 Mg/Ml Inj 2 Ml IV 06/14/24 01:16 4 mg Q6H PRN Administration NAUSEA OR VOMITING Protocol Pantoprazole Sodium 80 mg 05/15/24 21:00 05/22/24 09:05 Pantoprazole Inj 40 Mg Vial IVP 06/14/24 20:59 80 mg BID SREE Administration Pharmacy Consult 1 each 05/15/24 17:30 Vancomycin Pharmacy To Dose 1 Each Each IV 06/14/24 17:29 QDAY PRN CONSULT Rifaximin 550 mg 05/22/24 09:00 05/22/24 09:05 Rifaximin 550 Mg Tablet PO 05/29/24 08:59 550 mg BID SREE Administration Sodium Bicarbonate 650 mg 05/22/24 09:00 05/22/24 09:05 Sodium Bicarbonate 650 Mg Tablet PO 06/21/24 08:59 650 mg BID SREE Administration Plan Benjamin Villarreal is a 59-year-old male with PMHX of alcohol use disorder, esophageal varices s/p banding, hypertension, hyperlipidemia, DM2, HFpEF (EF 55 to 60%) and biliary dyskinesia who was admitted 05/15 after coming to ED with complaints of black starry stools and witnessed bloody emesis. On 05/15, patient had rapid response for large volume, dark-colored bloody stool and was upgraded to ICU for pressor support and mechanical ventilation for airway management. He has thus far been extubated and off pressors and downgraded to floors on 05/19 for further management. He has received a total of 8 units PRBC, 2 units FFP, and 2 units of platelets. Upon evaluation, patient is alert and responding to questions, and following commands. He does not have any complaints at this time, including abdominal pain, nausea, or vomiting. #Acute decompensated cirrhosis #Esophageal varices status post band ligation #Hemorrhagic shock, resolved Initial hemoglobin of 5.8 and received total of 8 units PRBC, 2 units FFP, and 2 units platelets. Underwent EGD on this admission that showed grade 2 varices that were banded as well as diffuse mucosal oozing in setting of hypertensive portal gastropathy with blood clots in proximal body of stomach. Attempted transfer for TIPS procedure but denied by multiple hospitals so transfer DC'd. Received 4 days octreotide drip but discontinued due to bradycardia and currently on Protonix 80 mg IV twice daily. ? GI following, appreciate recommendations ? Hemoglobin remained stable ? Octreotide discontinued due to bradycardia ? Protonix 80 mg IV twice daily #Hepatic encephalopathy #Hyperammonemia ? Increased lactulose 20 g PO 3 times daily ? Titrate to 2-3 bowel movements ? Rifaximin 550 mg via NG BID #Generalized weakness ? PT evaluation ordered and recommended SNF placement for acute rehab #Cirrhosis secondary to EtOH #History of alcohol use disorder #Thrombocytopenia #Hypoalbuminemia #Transaminitis MELD Na score 31 -> 52.6% estmated 3-month mortality Child-Garcia score 11 (Child class C) -> 1-3 year life epectancy and 82% tamara-operative abdominal surgery mortality ? Continue to monitor ? Ceftriaxone 1 g IV daily for SBP prophylaxis #Streptococcus anginosus bacteremia Blood cultures 05/14: 2/2 bottles positive for Strep anginosus Blood culture 05/16: NGTD ? Vancomycin, follow-up echo #Hypertonic hypernatremia, stable Free water deficit of 1.5 L with goal sodium of 145, previously on 150 cc/h water flushes but NG tube has since been discontinued. Suspected to be due to significant GI losses while on lactulose. ? Sodium improved today ? Continue with oral hydration or IVF if needed #? Seizures EEG on 05/19 obscured from artifact and will follow-up repeat EEG. ? Neurology consulted, appreciate recommendations ? Follow-up EEG and neurology recommendations #Acute kidney injury, likely prerenal #Hypokalemia, resolved #Hyperchloremia, improving #Hypomagnesemia, resolved ICU team gave albumin challenge to workup possible hepatorenal syndrome and creatinine improved, thus likely prerenal JEANIE. ? Avoid nephrotoxic agents, renally dose medications ? I/O: 140/1300 #Hyperbilirubinemia ? Cholestyramine 1 packet PO BID #HFpEF Hold on diuresis for now. Good urine output. #Rebound hypertension Noted to be hypertensive after discontinuing pressors and started on hydralazine 25 mg p.o. 3 times daily. However, BP at bedside was 105/56. ? Hydralazine held ? If BP rises, can resume #Type 2 diabetes mellitus A1c 6.7% on 04/2024. ? SSI ? Hypoglycemic protocol in place Hospital management: Disposition: downgraded from ICU, managing hypertonic hypernatremia, JEANIE, and UGIB Fluids: none Diet: Dysphagia 3 advanced Lines: PIV DVT prophylaxis: SCDs GI prophylaxis: pantoprazole 80 mg IV BID Sanchez: placed CODE STATUS: full code ----- Plan discussed with attending physician Dr. Supa Simons MD PGY-1 Internal Medicine Attending Provider Attestation/Addendum I have discussed and was present for the essential components of the history, physical examination, diagnosis, and treatment plan with the resident. I agree with the patient's care as documented by the resident and amended herein by me. Nick Cowart, DO. Patient seen and evaluated this AM. No acute events overnight, patient does endorse feeling better although labs are worse. WBC up trended to 22, hemoglobin stable at 12, platelet count stable 56, sodium 147, potassium 4.1, chloride elevated 118, bicarb has downtrended to 16.8, creatinine 1.4 and BUN at 35. The echo is still pending, EEG pending, I will give the patient a fluid bolus today, start the patient on sodium bicarb, order a VBG, continue lactulose, rifaximin and vancomycin. I will also add ceftriaxone as I cannot account for the patient's uptrending WBC, there is always concern with peritonitis for him although abdomen seems to be very distended, it is not tender to palpation. Will continue to monitor closely, the patient's prognosis is guarded. Although this document has been carefully reviewed, there may still be some phonetic and other typographical errors. These errors are purely grammatical due to imperfections in the software program and should not be construed in any way to compromise the substance of the patient's medical care during this visit.
--- NOTE | 2024-05-22 17:49 | XR_ITS ---
Examination: Abdomen AP single view Technique: AP portable supine abdomen, single view Exam date and time: May 22, 2024 7005 hours INDICATIONS: Abdominal pain and distention this week. FINDINGS: Moderate air and stool in the colon Air distended small bowel loops Mildly air distended stomach No free air IMPRESSION: Small bowel ileus pattern
--- NOTE | 2024-05-22 17:49 | XR_ITS ---
Examination: Abdomen sonogram, Limited Date and time of exam: May 22, 2024 1845 hours INDICATIONS: Abdominal distention several days Technique: Real-time melgoza scale transabdominal sonographic images of the 4 quadrants abdomen obtained. Findings: Mild to moderate ascites IMPRESSION: [id number] ascites
--- NOTE | 2024-05-22 17:56 | PC.NURSE ---
I notified Dr. Hunter regarding patient not eating all day because he felt really full. I reported abdomen being distended yet firm to touch. Patient denies pain but patient's effort of breathing looks compromised because his diaphragm is shorten due to his abdomen.
[2024-05-22] MEDS: SIMETHICONE 80 MG CHEW PO ×2 (18:07→22:05)
--- NOTE | 2024-05-22 19:24 | PD.IMPROG ---
Documentation for date of: 05/22/24 Subjective Subjective Interval history: Patient evaluate patient has abdominal distention Appears to be ascites Total bilirubin is 35.2 AST ALT 97 and 104 total BUN 35 and creatinine 1.4 platelet count of 56,000 pro time INR is 1.9 and hemoglobin hematocrit 12.3 and 36.4 Patient has end-stage liver disease due to alcohol Case discussed with internal medicine team Recommended KUB and a stat abdominal ultrasound and possible paracentesis if there is enough fluid in the belly Exam Vital Signs Temp Pulse Resp BP Pulse Ox O2 Del Method O2 Flow Rate 96.4 F L 79 16 134/85 H 95 Room Air 2 05/22/24 16:00 05/22/24 16:00 05/22/24 16:00 05/22/24 16:00 05/22/24 16:00 05/22/24 16:00 05/22/24 00:00 FiO2 30 05/22/24 00:00 Objective Labs 05/22/24 07:19 05/22/24 05:52 Labs: Laboratory Results - last 24 hr 05/22/24 05/22/24 05/22/24 05:52 07:19 09:46 WBC 22.7 H D RBC 4.20 L Hgb 12.3 L Hct 36.4 L MCV 87 MCH 29.3 MCHC 33.8 RDW Std Deviation 62.0 H Plt Count 56 L Neut % (Auto) 88 H Lymph % (Auto) 5 L [place] % (Auto) 4 Eos % (Auto) 1 Baso % (Auto) 1 Neut # (Auto) 19.9 H Lymph # (Auto) 1.2 [place] # (Auto) 0.9 H Eos # (Auto) 0.2 Baso # (Auto) 0.1 Immature Gran # (Auto) 0.40 H Absolute Nucleated RBC 0.02 H Immature Gran % 2 H Nucleated RBC % 0 VBG pH 7.36 VBG pCO2 25 L VBG pO2 120 H VBG O2 Sat (Maurisio) 99 H VBG Base Excess -10 L Sodium 147 H Potassium 4.1 D Chloride 118 H Carbon Dioxide 16.8 L Anion Gap 12 BUN 35 H Creatinine 1.4 H Estim Creat Clear Calc 54.2 L eGFR 58 L BUN/Creatinine Ratio 25 H Glucose 119 H Calculated Osmolality 301 H Calcium 8.9 Corrected Calcium 9.9 Phosphorus 3.3 Magnesium 2.6 Total Bilirubin 35.2 H* D AST 97 H ALT 104 H Alkaline Phosphatase 157 H Total Protein 5.7 Albumin 2.8 L Globulin 2.9 Albumin/Globulin Ratio 1.0 L Misc Test Result Platelets confirmed Impressions Impression: Increased abdominal girth most likely ascites in the setting of chronic liver disease secondary to alcohol Thrombocytopenia Coagulopathy Upper GI bleed ABG Interpretation ABG results: 05/15/24 05/15/24 05/15/24 08:45 14:25 16:08 ABG pH 7.31 L 7.04 L* D 7.22 L D ABG pCO2 20 L 58 H D 35 D ABG pO2 116 H 330 H D 63 L D ABG HCO3 10 L 16 L 14 L ABG O2 Saturation 98 99 H 89 L ABG Base Excess -15 L -15 L -13 L VBG pH VBG pCO2 VBG pO2 VBG Base Excess 05/15/24 05/16/24 05/16/24 19:03 04:05 05:05 ABG pH 7.27 L 7.43 D 7.48 H ABG pCO2 27 L 56 H D 23 L D ABG pO2 85 D 160 H D 191 H D ABG HCO3 12 L 37 H 17 L ABG O2 Saturation 96 101 H 100 H ABG Base Excess -13 L 11 H -5 L VBG pH VBG pCO2 VBG pO2 VBG Base Excess 05/16/24 05/16/24 05/16/24 11:34 14:20 18:35 ABG pH 7.49 H 7.52 H 7.55 H ABG pCO2 27 L 26 L 25 L ABG pO2 173 H 160 H 201 H D ABG HCO3 21 21 21 ABG O2 Saturation 100 H 100 H 100 H ABG Base Excess -2 -1 0 VBG pH VBG pCO2 VBG pO2 VBG Base Excess 05/16/24 05/17/24 05/19/24 21:53 11:34 05:05 ABG pH 7.55 H 7.54 H 7.44 D ABG pCO2 25 L 26 L 32 ABG pO2 206 H 177 H D 80 L D ABG HCO3 22 22 22 ABG O2 Saturation 100 H 100 H 97 ABG Base Excess 0 0 -2 VBG pH VBG pCO2 VBG pO2 VBG Base Excess 05/20/24 05/22/24 04:55 09:46 ABG pH 7.43 ABG pCO2 32 ABG pO2 102 D ABG HCO3 21 ABG O2 Saturation 99 H ABG Base Excess -3 VBG pH 7.36 VBG pCO2 25 L VBG pO2 120 H VBG Base Excess -10 L Assessment & Plan A&P Narrative Acute upper GI bleed in the form of melena and hematemesis Acute posthemorrhagic anemia in the setting of chronic liver disease with thrombocytopenia and coagulopathy Plan Continue supportive care Patient will have to be intubated to protect the airway as well as he is clenching his mouth and I cannot open his jaw to place bite block I have asked the intensive care unit specialist Dr. Bruner to intubate the patient paralyze him so I can proceed with the procedure she was kind enough to do so Octreotide drip at 50 mcg/h Protonix drip Serial CBC Will follow the patient Time Spent With Patient Time: Total time spent is greater than 50% in coordination of care (as documented) at patient's floor/unit and/or counseling patient: Procedures Arterial Line Size (Gauge): 18
--- NOTE | 2024-05-22 23:54 | VVPN_ITS ---
Telemedicine visit statement This visit was conducted with the use of interactive audio and video telecommunications system that permits real time communication between the patient and the provider. Patient's verbal consent for virtual visit was obtained on 05/22/24 at 2354. Documentation for date of: 05/22/24 Subjective Subjective Interval history: Patient is in telemetry. He is noted to have abdominal distention, Dr. Liu ordered abdominal ultrasound, as ascites was suspected. He was given simethicone to help with abdominal distention but has not helped much. No hematemesis or melena noted anymore. His hemoglobin has improved to 12. Virtual exam Vital Signs Temp Pulse Resp BP Pulse Ox O2 Del Method O2 Flow Rate 96.6 F L 77 25 H 114/71 94 L Room Air 2 05/22/24 20:00 05/22/24 20:00 05/22/24 20:00 05/22/24 20:00 05/22/24 20:00 05/22/24 20:00 05/22/24 00:00 FiO2 30 05/22/24 00:00 Objective Labs 05/22/24 07:19 05/22/24 05:52 Labs: Laboratory Results - last 24 hr 05/22/24 05/22/24 05/22/24 05:52 07:19 09:46 WBC 22.7 H D RBC 4.20 L Hgb 12.3 L Hct 36.4 L MCV 87 MCH 29.3 MCHC 33.8 RDW Std Deviation 62.0 H Plt Count 56 L Neut % (Auto) 88 H Lymph % (Auto) 5 L [place] % (Auto) 4 Eos % (Auto) 1 Baso % (Auto) 1 Neut # (Auto) 19.9 H Lymph # (Auto) 1.2 [place] # (Auto) 0.9 H Eos # (Auto) 0.2 Baso # (Auto) 0.1 Immature Gran # (Auto) 0.40 H Absolute Nucleated RBC 0.02 H Immature Gran % 2 H Nucleated RBC % 0 VBG pH 7.36 VBG pCO2 25 L VBG pO2 120 H VBG O2 Sat (Maurisio) 99 H VBG Base Excess -10 L Sodium 147 H Potassium 4.1 D Chloride 118 H Carbon Dioxide 16.8 L Anion Gap 12 BUN 35 H Creatinine 1.4 H Estim Creat Clear Calc 54.2 L eGFR 58 L BUN/Creatinine Ratio 25 H Glucose 119 H Calculated Osmolality 301 H Calcium 8.9 Corrected Calcium 9.9 Phosphorus 3.3 Magnesium 2.6 Total Bilirubin 35.2 H* D AST 97 H ALT 104 H Alkaline Phosphatase 157 H Total Protein 5.7 Albumin 2.8 L Globulin 2.9 Albumin/Globulin Ratio 1.0 L Misc Test Result Platelets confirmed ABG Interpretation ABG results: 05/15/24 05/15/24 05/15/24 08:45 14:25 16:08 ABG pH 7.31 L 7.04 L* D 7.22 L D ABG pCO2 20 L 58 H D 35 D ABG pO2 116 H 330 H D 63 L D ABG HCO3 10 L 16 L 14 L ABG O2 Saturation 98 99 H 89 L ABG Base Excess -15 L -15 L -13 L VBG pH VBG pCO2 VBG pO2 VBG Base Excess 05/15/24 05/16/24 05/16/24 19:03 04:05 05:05 ABG pH 7.27 L 7.43 D 7.48 H ABG pCO2 27 L 56 H D 23 L D ABG pO2 85 D 160 H D 191 H D ABG HCO3 12 L 37 H 17 L ABG O2 Saturation 96 101 H 100 H ABG Base Excess -13 L 11 H -5 L VBG pH VBG pCO2 VBG pO2 VBG Base Excess 05/16/24 05/16/24 05/16/24 11:34 14:20 18:35 ABG pH 7.49 H 7.52 H 7.55 H ABG pCO2 27 L 26 L 25 L ABG pO2 173 H 160 H 201 H D ABG HCO3 21 21 21 ABG O2 Saturation 100 H 100 H 100 H ABG Base Excess -2 -1 0 VBG pH VBG pCO2 VBG pO2 VBG Base Excess 05/16/24 05/17/24 05/19/24 21:53 11:34 05:05 ABG pH 7.55 H 7.54 H 7.44 D ABG pCO2 25 L 26 L 32 ABG pO2 206 H 177 H D 80 L D ABG HCO3 22 22 22 ABG O2 Saturation 100 H 100 H 97 ABG Base Excess 0 0 -2 VBG pH VBG pCO2 VBG pO2 VBG Base Excess 05/20/24 05/22/24 04:55 09:46 ABG pH 7.43 ABG pCO2 32 ABG pO2 102 D ABG HCO3 21 ABG O2 Saturation 99 H ABG Base Excess -3 VBG pH 7.36 VBG pCO2 25 L VBG pO2 120 H VBG Base Excess -10 L Assessment & Plan Problem List (1) Altered mental status: Status: Resolved Assessment and plan: Repeat EEG showed normal study. (2) Acute upper GI bleeding: Status: Acute Assessment and plan: Status post upper GI endoscopy For esophageal varices Continue to monitor his hemoglobin hematocrit closely (3) Anemia: Status: Acute Assessment and plan: Hemoglobin and hematocrit improved (4) Alcoholic liver disease: Status: Chronic Assessment and plan: Now with abdominal distention/ascites, getting ultrasound for possible paracentesis on Friday if there is enough fluid. Continue with the lactulose
[2024-05-23] VITALS (59 sets, daily range): BP systolic 115–133; BP diastolic 61–81; PULSE 66–108; RESP 13–95; TEMP 35.6–35.9; O2SAT 94–97; BMI 28.5
[2024-05-23] MEDS: LACTULOSE SYRUP 20 GM/30 ML UDC PO (05:22)
[2024-05-23] MEDS: SIMETHICONE 80 MG CHEW PO (05:22)
[2024-05-23 06:21] LABS: Basophils # (Auto) 0.2 Thou/mm3 (0.0-0.2); Basophils % (Auto) 1 % (0-2.5); Eosinophils # (Auto) 0.1 Thou/mm3 (0.0-0.5); Eosinophils % (Auto) 0 % (0-10); Monocytes % (Auto) 4 % (0-12); Nucleated Red Blood Cell % 0 /100 WBC (0)
[2024-05-23 06:23] LABS: Hematocrit 31.3 % (41.0-53.0); Hemoglobin 10.9 g/dL (13.5-16.0); Immature Granulocytes % (Auto) 2 % (0-0); Immature Granulocytes Auto 0.48 Thou/mm3 (0.00-0.00); Lymphocytes # (Auto) 0.9 Thou/mm3 (1.0-4.8); Lymphocytes % (Auto) 3 % (10-50); Mean Corpuscular HGB Conc 34.8 g/dl (31.0-37.0); Mean Corpuscular Hemoglobin 29.8 pg (25.0-35.0); Mean Corpuscular Volume 86 fL (80-100); Monocytes # (Auto) 1.1 Thou/mm3 (0.0-0.8); Neutrophils # (Auto) 29.4 Thou/mm3 (1.8-7.7); Neutrophils % (Auto) 91 % (37-80); Nucleated Red Blood Cell # 0.04 Thou/mm3 (0.00-0.00); RDW Standard Deviation 60.9 fL (35.1-43.9); Red Blood Count 3.66 Miln/mm3 (4.50-5.90); White Blood Count 32.2 Thou/mm3 (3.8-10.6)
[2024-05-23 06:26] LABS: Platelet Count 38 Thou/mm3 (140-440)
[2024-05-23 06:27] LABS: Slide Review Platelets confirmed
[2024-05-23 07:05] LABS: Alanine Aminotransferase 91 U/L (10-49); Albumin, Serum 2.7 gm/dL (3.5-5.0); Alkaline Phosphatase 167 U/L (46-116); Anion Gap 14 (7-16); Aspartate Amino Transferase 82 U/L (0-34); BUN/Creatinine Ratio 19 Ratio (12-20); Blood Urea Nitrogen 44 mg/dL (9-23); Calcium 9.1 mg/dL (8.3-10.6); Calcium (Corrected) 10.1 mg/dL (8.5-10.1); Chloride 115 mMol/L (98-107); Creatinine (Component) 2.3 mg/dL (0.6-1.3); Estimated Creatinine Clearance 32.6 mL/min (>60); Globulin 2.8 gm/dL (2.3-3.5); Glucose 114 mg/dL (74-106); Magnesium 2.3 mg/dL (1.6-2.6); Osmolality,Calculated 299 (275-295); Phosphorous 3.7 mg/dL (2.4-5.1); Potassium 4.2 mMol/L (3.4-5.1); Sodium 144 mMol/L (136-145); Total Protein 5.5 gm/dL (5.7-8.2); eGFR 32 See Note
[2024-05-23 07:07] LABS: Carbon Dioxide 14.8 mMol/L (20.0-31.0)
--- NOTE | 2024-05-23 07:17 | PC.NURSE ---
CO2 Critical lab report from lab- 14.8. Dr. Cooper made aware.
[2024-05-23 07:23] LABS: Bilirubin,Total 34.6 mg/dL (0.3-1.2)
--- NOTE | 2024-05-23 07:53 | XR_ITS ---
Examination: Abdomen AP single view Technique: AP portable supine abdomen, single view Exam date and time: May 23, 2024 0654 hours INDICATIONS: Abdominal distention today. FINDINGS: The film does not include the left abdomen Abundant stool in the right colon Small bowel ileus The film does not include the hemidiaphragms IMPRESSION: Limited study Small bowel ileus
[2024-05-23] MEDS: PANTOPRAZOLE INJ 40 MG VIAL 80 MG IVP ×2 (08:13→20:16)
[2024-05-23] MEDS: cefTRIAXone/D5w 1gm IV premix 1 GM/50 ML BAG IV (08:13)
[2024-05-23] MEDS: CHOLESTYRAMINE/SUCROSE 1 PKT EA PO (08:13)
[2024-05-23] MEDS: SODIUM BICARBONATE 650 MG TABLET PO (08:13)
[2024-05-23] MEDS: rifaximin 550 MG TABLET PO (08:13)
[2024-05-23 08:31] LABS: Base Excess, Venous -8 (-3-3); O2 Saturation, Venous 92 % (96-97); PCO2, Venous 24 mmHg (36-56); PO2, Venous 58 mmHg (15-58); pH, Venous 7.42 (7.33-7.66)
[2024-05-23 08:33] LABS: Lactate (Lactic Acid) 2.7 mMol/L (0.4-2.0)
--- NOTE | 2024-05-23 10:05 | XR_ITS ---
Examination: Abdomen AP single view Technique: AP portable supine abdomen, single view Exam date and time: May 23, 2024 0917 hours INDICATIONS: Post orogastric tube placement FINDINGS: Orogastric tube in stomach satisfactory position Worsening air distended small bowel loops compared with May 23, 2024 0704 hours No free air IMPRESSION: Orogastric tube satisfactory position Small bowel obstruction pattern, consider CT scan abdomen and pelvis post intravenous contrast follow-up
[2024-05-23] MEDS: VANCOMYCIN/NS 500 MG IVPB 100 ML 120 MG IV (11:00)
[2024-05-23 11:10] LABS: Ammonia 48 uMol/L (11-32)
[2024-05-23 11:32] LABS: Reflex Lactate? Y
[2024-05-23 12:06] LABS: Lactic Acid, 3 HR 2.7 mMol/L (0.4-2.0)
--- NOTE | 2024-05-23 13:04 | ESPR_ITS ---
<Statement entered by Amado Cooper MD - 05/23/24 16:44> Patient was seen and examined at the bedside. Overnight, patient was tachypneic and x-ray abdomen was ordered which showed ileus pattern. Patient himself reported that he wants to be full code and if he becomes altered son can be contacted however it did not receive the phone call. Labs showed worsening acidosis and kidney functions. White count went up. Hemoglobin downtrending. We consulted ICU nurse receptionist recommended to place an NG tube, where the bladder pressure and perform paracentesis. NG tube showed blood with high output. GI recs are pending and holding off rectal tube until Dr. Liu will be seeing the patient. Albumin 25 twice daily was started. Midodrine 5 mg 3 times daily has been added for hypotension. Serum ammonia was borderline elevated. Paracentesis was performed by the ICU team today. Bladder pressure was around 20 mmHg. Will continue bladder pressure Q4 hourly. Continue with Protonix 40 IV twice daily. Coagulation panel was ordered stat. Closely monitor blood pressure. All labs and orders were reviewed. I saw and examined the patient, and I agree with current management stated by Dr Ronak MD,PGY1. Plan of care was discussed with the attending physician and resident physician. Disclaimer: Despite multiple revisions, due to the dictation software being used, the document bellow may not be free of grammatical errors including phonetic/typographic errors. However, this does not deter from our commitment to providing health care in the patient's best interest in mind. Dr. Kenneth MD, PGY 2 Documentation for date of: 05/23/24 Subjective Subjective Interval history: Benjamin Villarreal is a 59-year-old male with PMHX of alcohol use disorder, esophageal varices s/p banding, hypertension, hyperlipidemia, DM2, HFpEF (EF 55 to 60%) and biliary dyskinesia who was admitted 05/15 after coming to ED with complaints of black starry stools and witnessed bloody emesis. Upon night resident evaluation, unable to provide history and was only oriented to self and followed simple commands only. Per chart review, patient had been having black starry stools for 4 days and was hypoxic when EMS evaluated patient. Stated that he has not drank alcohol for the past 15 days. Of note, he was recently discharged from hospital after coming with similar complaints and underwent EGD that revealed grade 3 esophageal varices which were banded and ligated. On 05/15, patient had rapid response for large volume, dark-colored bloody stool and was upgraded to ICU for pressor support and mechanical ventilation for airway management. He has thus far been extubated and off pressors and downgraded to floors on 05/19 for further management. He has received a total of 8 units PRBC, 2 units FFP, and 2 units of platelets. 05/20: No acute overnight events reported. Seen and examined at bedside in ICU as telemetry overflow. States that he does not have any complaints at this time, including abdominal pain, nausea, or vomiting. However, abdominal x-ray showed mild to moderate small bowel ileus. Neurology following and wants to follow-up with another EEG given prior EEG abnormal findings. 05/22: No acute overnight events noted. Seen and examined at bedside in telemetry. Patient states that he does not have a complaint at this time. Abdomen continues to be distended and firm but patient denies nausea, vomiting, abdominal pain and states that he has been burping and passing gas. 05/23: No acute overnight events noted. Seen and examined at bedside in telemetry. Appeared to have increased work of breathing and repeat abdominal XR and ultrasound obtained that showed small bowel ileus and mild-moderate ascites, respectively. Concerns for intra-abdominal hypertension given findings of decreased UOP, increase in Cr from 1.4 to 2.3, and increase in WBC from 22 to 32 in addition to distended abdomen. Thus, NGT placed on LIS and bladder pressure obtained of 20. Repeat showed bladder pressure of 13 while on NGT, with output of approximately 300 cc of red/brown colored fluid. Attempted paracentesis, but unable to find appropriate pocket so will reattempt tomorrow. Exam Vital Signs Temp Pulse Resp BP Pulse Ox O2 Del Method O2 Flow Rate 96.6 F L 72 19 133/69 H 96 Room Air 2 05/23/24 08:00 05/23/24 08:00 05/23/24 08:00 05/23/24 08:00 05/23/24 08:00 05/23/24 08:00 05/22/24 00:00 FiO2 30 05/22/24 00:00 Narrative Exam General: laying in bed comfortably, jaundiced, ill-appearing HEENT: scleral icterus, NC/AT, mucous membranes moist Cardiovascular: regular rate and rhythm, S1/S2 present, no murmurs appreciated Pulmonary: coarse lung sounds appreciated, no wheezing or crackles Abdominal: distended, firm, tympanic, non-tender, no rebound/guarding Musculoskeletal: normal ROM, no peripheral edema Skin: jaundiced, warm and dry, intact, no rashes Neuro: CN II-XII intact, no focal deficits Objective Labs 05/23/24 05:24 05/23/24 05:24 Labs: Laboratory Results - last 24 hr 05/23/24 05/23/24 05/23/24 05:24 08:05 10:44 WBC 32.2 H D RBC 3.66 L Hgb 10.9 L Hct 31.3 L MCV 86 MCH 29.8 MCHC 34.8 RDW Std Deviation 60.9 H Plt Count 38 L D Neut % (Auto) 91 H Lymph % (Auto) 3 L [place] % (Auto) 4 Eos % (Auto) 0 Baso % (Auto) 1 Neut # (Auto) 29.4 H Lymph # (Auto) 0.9 L [place] # (Auto) 1.1 H Eos # (Auto) 0.1 Baso # (Auto) 0.2 Immature Gran # (Auto) 0.48 H Absolute Nucleated RBC 0.04 H Immature Gran % 2 H Nucleated RBC % 0 VBG pH 7.42 VBG pCO2 24 L VBG pO2 58 D VBG O2 Sat (Maurisio) 92 L VBG Base Excess -8 L Sodium 144 Potassium 4.2 Chloride 115 H Carbon Dioxide 14.8 L* Anion Gap 14 BUN 44 H Creatinine 2.3 H D Estim Creat Clear Calc 32.6 L eGFR 32 L BUN/Creatinine Ratio 19 Glucose 114 H Calculated Osmolality 299 H Lactic Acid 2.7 H Calcium 9.1 Corrected Calcium 10.1 Phosphorus 3.7 Magnesium 2.3 Total Bilirubin 34.6 H* D AST 82 H ALT 91 H Alkaline Phosphatase 167 H Ammonia 48 H Total Protein 5.5 L Albumin 2.7 L Globulin 2.8 Albumin/Globulin Ratio 1.0 L Misc Test Result Platelets confirmed 05/23/24 11:57 WBC RBC Hgb Hct MCV MCH MCHC RDW Std Deviation Plt Count Neut % (Auto) Lymph % (Auto) [place] % (Auto) Eos % (Auto) Baso % (Auto) Neut # (Auto) Lymph # (Auto) [place] # (Auto) Eos # (Auto) Baso # (Auto) Immature Gran # (Auto) Absolute Nucleated RBC Immature Gran % Nucleated RBC % VBG pH VBG pCO2 VBG pO2 VBG O2 Sat (Maurisio) VBG Base Excess Sodium Potassium Chloride Carbon Dioxide Anion Gap BUN Creatinine Estim Creat Clear Calc eGFR BUN/Creatinine Ratio Glucose Calculated Osmolality Lactic Acid 2.7 H Calcium Corrected Calcium Phosphorus Magnesium Total Bilirubin AST ALT Alkaline Phosphatase Ammonia Total Protein Albumin Globulin Albumin/Globulin Ratio Misc Test Result ABG Interpretation ABG results: 05/15/24 05/15/24 05/15/24 08:45 14:25 16:08 ABG pH 7.31 L 7.04 L* D 7.22 L D ABG pCO2 20 L 58 H D 35 D ABG pO2 116 H 330 H D 63 L D ABG HCO3 10 L 16 L 14 L ABG O2 Saturation 98 99 H 89 L ABG Base Excess -15 L -15 L -13 L VBG pH VBG pCO2 VBG pO2 VBG Base Excess 05/15/24 05/16/24 05/16/24 19:03 04:05 05:05 ABG pH 7.27 L 7.43 D 7.48 H ABG pCO2 27 L 56 H D 23 L D ABG pO2 85 D 160 H D 191 H D ABG HCO3 12 L 37 H 17 L ABG O2 Saturation 96 101 H 100 H ABG Base Excess -13 L 11 H -5 L VBG pH VBG pCO2 VBG pO2 VBG Base Excess 05/16/24 05/16/24 05/16/24 11:34 14:20 18:35 ABG pH 7.49 H 7.52 H 7.55 H ABG pCO2 27 L 26 L 25 L ABG pO2 173 H 160 H 201 H D ABG HCO3 21 21 21 ABG O2 Saturation 100 H 100 H 100 H ABG Base Excess -2 -1 0 VBG pH VBG pCO2 VBG pO2 VBG Base Excess 05/16/24 05/17/24 05/19/24 21:53 11:34 05:05 ABG pH 7.55 H 7.54 H 7.44 D ABG pCO2 25 L 26 L 32 ABG pO2 206 H 177 H D 80 L D ABG HCO3 22 22 22 ABG O2 Saturation 100 H 100 H 97 ABG Base Excess 0 0 -2 VBG pH VBG pCO2 VBG pO2 VBG Base Excess 05/20/24 05/22/24 05/23/24 04:55 09:46 08:05 ABG pH 7.43 ABG pCO2 32 ABG pO2 102 D ABG HCO3 21 ABG O2 Saturation 99 H ABG Base Excess -3 VBG pH 7.36 7.42 VBG pCO2 25 L 24 L VBG pO2 120 H 58 D VBG Base Excess -10 L -8 L Quality Measures Quality Measures VTE prophylaxis Assessment & Plan Assessment Current Active Medications: Generic Name Dose Route Start Last Admin Trade Name Freq PRN Reason Stop Dose Admin Acetaminophen 650 mg 05/15/24 01:17 Acetaminophen Supp 650 Mg Supp OR 06/14/24 01:16 Q6HR PRN pain and Fever > 100.4 Albuterol/Ipratropium 3 ml 05/20/24 15:53 Albuterol/Ipratropium (Duoneb) Rt Irina 3 Ml Nebu INH 06/19/24 15:52 Q6HRRT PRN SHORTNESS OF BREATH OR WHEEZE Cholestyramine Resin 1 pkt 05/18/24 21:00 05/23/24 08:13 Cholestyramine/Sucrose 1 Pkt Ea PO 06/17/24 20:59 1 pkt BID SREE Administration Dextrose 25 ml 05/15/24 01:22 Dextrose 50%-Water Inj 50 Ml Syringe IV 06/14/24 01:21 Q15MIN PRN BG 50-70 responsive npo pt Dextrose 50 ml 05/15/24 01:22 Dextrose 50%-Water Inj 50 Ml Syringe IV 06/14/24 01:21 Q15MIN PRN BG <50 OR BG <70 & pt unresponsive Glucagon 1 mg 05/15/24 01:22 Glucagon Inj 1 Mg Vial IM Q15MIN PRN BG <70, and no IV access Hydralazine HCl 25 mg 05/18/24 22:00 05/19/24 13:17 Hydralazine Hcl 25 Mg Tablet PO 06/17/24 21:59 Not Given TID SREE Ceftriaxone Sodium/Dextrose 1 gm in 50 mls @ 100 mls/hr 05/22/24 07:50 05/23/24 08:13 Rocephin/D5w 1gm Iv Premix IV 05/29/24 07:49 100 mls/hr QDAY SREE Administration Insulin Human Lispro 0 unit 05/20/24 17:30 05/23/24 12:03 Insulin Lispro (Admelog) 1 Unit/0.01 Ml Unit SC 06/19/24 17:29 Not Given ACHS SREE Protocol Lactulose 20 gm 05/22/24 06:00 05/23/24 05:22 Lactulose Syrup 20 Gm/30 Ml Udc PO 06/21/24 05:59 20 gm TID SREE Administration Protocol Lactulose 200 gm 05/23/24 14:00 Lactulose Syrup 10 Gm/15 Ml OR 06/22/24 13:59 TID SREE Protocol Ondansetron HCl 4 mg 05/15/24 01:17 05/15/24 05:46 Ondansetron Inj 2 Mg/Ml Inj 2 Ml IV 06/14/24 01:16 4 mg Q6H PRN Administration NAUSEA OR VOMITING Protocol Pantoprazole Sodium 80 mg 05/15/24 21:00 05/23/24 08:13 Pantoprazole Inj 40 Mg Vial IVP 06/14/24 20:59 80 mg BID SREE Administration Pharmacy Consult 1 each 05/15/24 17:30 Vancomycin Pharmacy To Dose 1 Each Each IV 06/14/24 17:29 QDAY PRN CONSULT Rifaximin 550 mg 05/22/24 09:00 05/23/24 08:13 Rifaximin 550 Mg Tablet PO 05/29/24 08:59 550 mg BID SREE Administration Simethicone 80 mg 05/22/24 18:00 05/23/24 05:22 Simethicone 80 Mg Chew PO 06/21/24 17:59 80 mg QID SREE Administration Sodium Bicarbonate 650 mg 05/22/24 09:00 05/23/24 08:13 Sodium Bicarbonate 650 Mg Tablet PO 06/21/24 08:59 650 mg BID SREE Administration Plan Benjamin Villarreal is a 59-year-old male with PMHX of alcohol use disorder, esophageal varices s/p banding, hypertension, hyperlipidemia, DM2, HFpEF (EF 55 to 60%) and biliary dyskinesia who was admitted 05/15 after coming to ED with complaints of black starry stools and witnessed bloody emesis. On 05/15, patient had rapid response for large volume, dark-colored bloody stool and was upgraded to ICU for pressor support and mechanical ventilation for airway management. He has thus far been extubated and off pressors and downgraded to floors on 05/19 for further management. He has received a total of 8 units PRBC, 2 units FFP, and 2 units of platelets. Upon evaluation, patient is alert and responding to questions, and following commands. He does not have any complaints at this time, including abdominal pain, nausea, or vomiting. #Intra-abdominal hypertension #? Abdominal compartment syndrome with worsening renal function Concerns for intra-abdominal hypertension given findings of decreased UOP, increase in Cr from 1.4 to 2.3, and increase in WBC from 22 to 32 in addition to distended abdomen. Thus, NGT placed on LIS and bladder pressure obtained of 20. Repeat showed bladder pressure of 13 while on NGT, with output of approximately 300 cc of red/brown colored fluid. Attempted paracentesis, but unable to find appropriate pocket so will reattempt tomorrow. ? ICU consulted, appreciate recommendations ? Attempted paracentesis today but bedside US did not yield adequate pocket and will re-evaluate tomorrow ? NGT on LIS ? Consider rectal tube, pending GI recs ? Bladder pressure q4hr ? Midodrine 5 mg PO TID PRN #Anion gap metabolic acidosis #Lactic acidosis Lactate 2.7, HCO3 14. ? Sodium bicarbonate 650 mg PO BID #Acute decompensated cirrhosis #Esophageal varices status post band ligation #Hemorrhagic shock, resolved #Mild-moderate ascites Initial hemoglobin of 5.8 and received total of 8 units PRBC, 2 units FFP, and 2 units platelets. Underwent EGD on this admission that showed grade 2 varices that were banded as well as diffuse mucosal oozing in setting of hypertensive portal gastropathy with blood clots in proximal body of stomach. Attempted transfer for TIPS procedure but denied by multiple hospitals so transfer DC'd. Received 4 days octreotide drip but discontinued due to bradycardia and currently on Protonix 80 mg IV twice daily. ? GI following, appreciate recommendations ? Hemoglobin remained stable ? Octreotide discontinued due to bradycardia ? Protonix 80 mg IV twice daily ? Albumin 25 g IV BID to increase intravascular volume in setting of ascites #Hepatic encephalopathy #Hyperammonemia ? Increased lactulose 20 g PO 3 times daily ? Titrate to 2-3 bowel movements ? Rifaximin 550 mg via NG BID #Generalized weakness ? PT evaluation ordered and recommended SNF placement for acute rehab #Cirrhosis secondary to EtOH #History of alcohol use disorder #Thrombocytopenia #Hypoalbuminemia #Transaminitis MELD Na score 31 -> 52.6% estmated 3-month mortality Child-Garcia score 11 (Child class C) -> 1-3 year life epectancy and 82% tamara- operative abdominal surgery mortality ? Continue to monitor ? Ceftriaxone 1 g IV daily for SBP prophylaxis #Streptococcus anginosus bacteremia Blood cultures 05/14: 2/2 bottles positive for Strep anginosus Blood culture 05/16: NGTD Vancomycin discontinued (05/21-05/23) ? Follow-up echo #Hypertonic hypernatremia, resolved Free water deficit of 1.5 L with goal sodium of 145, previously on 150 cc/h water flushes but NG tube has since been discontinued. Suspected to be due to significant GI losses while on lactulose. ? Continue with oral hydration or IVF if needed #? Seizures EEG on 05/19 obscured from artifact and will follow-up repeat EEG. ? Neurology consulted, appreciate recommendations ? Repeat EEG showed normal study. #Acute kidney injury, likely prerenal #Hypokalemia, resolved #Hyperchloremia, improving #Hypomagnesemia, resolved ICU team gave albumin challenge to workup possible hepatorenal syndrome and creatinine improved, thus likely prerenal JEANIE. ? Avoid nephrotoxic agents, renally dose medications #Hyperbilirubinemia ? Cholestyramine 1 packet PO BID #HFpEF Hold on diuresis for now. Good urine output. #Rebound hypertension Noted to be hypertensive after discontinuing pressors and started on hydralazine 25 mg p.o. 3 times daily. However, BP at bedside was 105/56. ? Hydralazine held ? If BP rises, can resume #Type 2 diabetes mellitus A1c 6.7% on 04/2024. ? SSI ? Hypoglycemic protocol in place Hospital management: Disposition: downgraded from ICU, intraabdominal hypertension Fluids: none Tubes: NGT on LIS Diet: NPO Lines: PIV DVT prophylaxis: SCDs GI prophylaxis: pantoprazole 80 mg IV BID Sanchez: placed CODE STATUS: full code ----- Plan discussed with attending physician Dr. Supa Simons MD PGY-1 Internal Medicine Attending Provider Attestation/Addendum I have discussed and was present for the essential components of the history, physical examination, diagnosis, and treatment plan with the resident. I agree with the patient's care as documented by the resident and amended herein by me. Nick Cowart DO. Patient seen and evaluated this AM. Vital signs stable, patient afebrile overnight, patient on room air, SpO2 93%, I's/O580/220, urine output definitely slowing down. WBC up trended to 32, hemoglobin stable 10.9, platelets low at 32. Sodium 144, potassium 4.2, chloride 115, bicarb has downtrended to 14, BUN 44 and creatinine elevated to 2.3 today. Patient's abdomen is still very firm and distended. We did place an ICU consult for additional recommendations, at this time the patient will be in telemetry however placed in the ICU as to perform a bladder pressure to measure for abdominal compartment syndrome which did come back at 20. We will attempt paracentesis to relieve the pressure. Will continue ceftriaxone, vancomycin, rifaximin, pantoprazole, bicarb, hydralazine and lactulose at this time. Will continue to monitor closely and appreciate all the ICU recommendations. Although this document has been carefully reviewed, there may still be some phonetic and other typographical errors. These errors are purely grammatical due to imperfections in the software program and should not be construed in any way to compromise the substance of the patient's medical care during this visit.
[2024-05-23 16:37] LABS: INR 2.2 (0.9-1.3); Partial Thromboplastin Time 49.9 Seconds (22.0-36.0); Prothrombin Time 22.5 Seconds (9.0-12.2)
--- NOTE | 2024-05-23 17:02 | ESCONSULT_ITS ---
<Statement entered by Alison Gonzalez MD - 05/24/24 07:57> TOTAL TIME: 45MINUTES ON DIRECT MEDICAL CARE, MANAGEMENT - COORDINATION AND COUNSELING > 50% OF TOTAL TIME I saw and evaluated the patient. I reviewed the resident?s note and agree with findings and plan as documented in the resident?s note. Called by the primary team resident to discuss the patient's renal failure. Patient was moved to the ICU for bladder pressure monitoring due to new onset of acute kidney injuries in the setting of ascites. Initial bladder pressure was measured at 20 mmHg and then later 13 mmHg. Emergency room physician also assisted by presenting to bedside and reviewing the ultrasound which confirmed moderate but not severe ascites. A therapeutic paracentesis was avoided. Recommended nephrology consult as well. HPI Data of Consult Requesting Physician: Demetri Cowart DO Admitting Provider: Ricky Collins MD Attending Provider: Demetri Cowart DO Primary Care Provider: Gamal Bonilla MD Consult Narrative History of present illness: The patient is a 59-year-old male with a past medical history significant for alcohol use disorder, esophageal varices (status post banding), hypertension, hyperlipidemia, type 2 diabetes, HFpEF with an ejection fraction of 55-60%, and biliary dyskinesia. He was admitted to the hospital on 05/15/2024 following an episode of bloody emesis. On presentation, the patient was found to be encephalopathic and was unable to provide a clear history. He mentioned a history of multiple hospital admissions due to severe alcohol withdrawal. Initial Presentation: Upon admission, the patient?s blood pressure was on the lower end, but the MAP remained above 65 mmHg, which was maintained. The patient was also noted to have acute kidney injury, likely due to acute blood loss anemia. Laboratory results revealed lactic acidosis and hyperammonemia, which further complicated his clinical picture. During his hospital stay, the patient's condition deteriorated significantly. He developed severe anemia and continued to experience significant gastrointestina losses. A consultation with Dr. Liu was obtained, and the patient underwent EGD twice. The EGD revealed profuse bleeding, which was successfully managed with banding of the varices. Despite this, the patient?s hemoglobin dropped below 6 g/dL, and he required multiple units of packed red blood cells for transfusion. At one point, the patient became increasingly encephalopathic, and airway protection was required, necessitating intubation. Additionally patient blood pressure was on the low side requiring pressor support.patient underwent to hemorrhagic shock requiring multiple blood transfusion and vasopressors to maintain the blood pressure. Initially, the plan was to transfer the patient to a high-care facility for a TIPS procedure. However, due to his MELD-Na score and his unstable condition, many institutions declined the transfer. ICU Course: While in the ICU, the patient?s condition showed some improvement. He was successfully extubated, weaned off from pressors and his acute kidney injury resolved. Following the banding procedure, his hemoglobin stabilized, and hyperammonemia resolved with lactulose treatment. He was safely downgraded to the floor. 05/23/2024 Today, the ICU team was consulted due to concerns about abdominal compartment syndrome. Bladder pressures were measured and were found to be greater than 20 mmHg, raising concerns. Initially, a paracentesis was planned, but bedside ultrasound did not reveal significant ascitic fluid. Additionally, an abdominal X-ray showed a mild ileus, which was concerning for a small bowel obstruction . Currently, the patient is saturating in room air and is not complaining of any abdominal distension or pain. An NG tube was placed to decompress the bowel, and the gastroenterology team is now involved. GI will evaluate the patient to determine if a rectal tube will be needed for further bowel decompression. cc:: cc: Demetri Cowart, Review of Systems Review of Systems Narrative Review of Systems: Narrative Review of Systems: GENERAL: Denies fevers/chills or diaphoresis. HEENT: Denies headache, Denies visual/hearing changes NEURO: Denies unusual weakness or difficulty speaking. CARDIO: Denies chest pain PULM: Denies SOB GI: Denies abdominal pain, nausea, vomiting, diarrhea MSK/EXT/SKIN: Denies joint/skeletal/muscle pain The rest of review of system is otherwise negative except what is mentioned above Exam Vital Signs Temp Pulse Resp BP Pulse Ox O2 Del Method O2 Flow Rate 96.5 F L 69 18 119/64 95 Room Air 2 05/23/24 12:00 05/23/24 12:00 05/23/24 12:00 05/23/24 12:00 05/23/24 12:00 05/23/24 12:00 05/22/24 00:00 FiO2 30 05/22/24 00:00 Narrative Exam GENERAL:Severly icteric Ill looking man, HEENT: Normocephalic, atraumatic. Pupils are equal and reactive. icteric sclera, teeth loose. NECK: Supple, nontender, no JVD CARDIOVASCULAR: Heart regular rhythm & rate. S1/S2. no murmur or gallop rub or extra beats. LUNGS: Clear to auscultation bilaterally with symmetrical chest rise. No crackles or wheezing. No intercostal subcostal retraction. No rales and no rhonchi. ABDOMEN: Distended Active and normal bowel sounds. EXTREMITIES/skin : Icteric , small necrotic area around right big toe . Results Labs 05/23/24 05:24 05/23/24 05:24 Labs: Short CBC 05/23/24 Range/Units 05:24 WBC 32.2 H D (3.8-10.6) Thou/mm3 Hgb 10.9 L (13.5-16.0) g/dL Hct 31.3 L (41.0-53.0) % Plt Count 38 L D (140-440) Thou/mm3 BMP 05/23/24 05:24 Sodium 144 Potassium 4.2 Chloride 115 H Carbon Dioxide 14.8 L* BUN 44 H Creatinine 2.3 H D Glucose 114 H Calcium 9.1 Liver Function 05/23/24 Range/Units 05:24 Total Bilirubin 34.6 H* D (0.3-1.2) mg/dL AST 82 H (0-34) U/L ALT 91 H (10-49) U/L Alkaline Phosphatase 167 H (46-116) U/L Albumin 2.7 L (3.5-5.0) gm/dL ABG Interpretation ABG results: 05/15/24 05/15/24 05/15/24 08:45 14:25 16:08 ABG pH 7.31 L 7.04 L* D 7.22 L D ABG pCO2 20 L 58 H D 35 D ABG pO2 116 H 330 H D 63 L D ABG HCO3 10 L 16 L 14 L ABG O2 Saturation 98 99 H 89 L ABG Base Excess -15 L -15 L -13 L VBG pH VBG pCO2 VBG pO2 VBG Base Excess 05/15/24 05/16/24 05/16/24 19:03 04:05 05:05 ABG pH 7.27 L 7.43 D 7.48 H ABG pCO2 27 L 56 H D 23 L D ABG pO2 85 D 160 H D 191 H D ABG HCO3 12 L 37 H 17 L ABG O2 Saturation 96 101 H 100 H ABG Base Excess -13 L 11 H -5 L VBG pH VBG pCO2 VBG pO2 VBG Base Excess 05/16/24 05/16/24 05/16/24 11:34 14:20 18:35 ABG pH 7.49 H 7.52 H 7.55 H ABG pCO2 27 L 26 L 25 L ABG pO2 173 H 160 H 201 H D ABG HCO3 21 21 21 ABG O2 Saturation 100 H 100 H 100 H ABG Base Excess -2 -1 0 VBG pH VBG pCO2 VBG pO2 VBG Base Excess 05/16/24 05/17/24 05/19/24 21:53 11:34 05:05 ABG pH 7.55 H 7.54 H 7.44 D ABG pCO2 25 L 26 L 32 ABG pO2 206 H 177 H D 80 L D ABG HCO3 22 22 22 ABG O2 Saturation 100 H 100 H 97 ABG Base Excess 0 0 -2 VBG pH VBG pCO2 VBG pO2 VBG Base Excess 05/20/24 05/22/24 05/23/24 04:55 09:46 08:05 ABG pH 7.43 ABG pCO2 32 ABG pO2 102 D ABG HCO3 21 ABG O2 Saturation 99 H ABG Base Excess -3 VBG pH 7.36 7.42 VBG pCO2 25 L 24 L VBG pO2 120 H 58 D VBG Base Excess -10 L -8 L Quality Measures Quality Measures VTE prophylaxis Medications Home Medications and Allergies Home Medications ?Medication ?Instructions ?Recorded ?Confirmed ?Type No Known Home Medications 12/31/1712/03 History Allergies Allergy/AdvReac Type Severity Reaction Status Date / Time No Known Allergies Allergy Verified 05/15/24 06:35 Visit Medications Acetaminophen (Acetaminophen Supp 650 Mg Supp) 650 mg MT Q6HR PRN PRN Reason: pain and Fever > 100.4 Stop: 06/14/24 01:16 Albuterol/Ipratropium (Albuterol/Ipratropium (Duoneb) Rt Irina 3 Ml Nebu) 3 ml INH Q6HRRT PRN PRN Reason: SHORTNESS OF BREATH OR WHEEZE Stop: 06/19/24 15:52 Cholestyramine Resin (Cholestyramine/Sucrose 1 Pkt Ea) 1 pkt PO BID [facility] Stop: 06/17/24 20:59 Last Admin: 05/23/24 08:13 Dose: 1 pkt Dextrose (Dextrose 50%-Water Inj 50 Ml Syringe) 25 ml IV Q15MIN PRN PRN Reason: BG 50-70 responsive npo pt Stop: 06/14/24 01:21 Dextrose (Dextrose 50%-Water Inj 50 Ml Syringe) 50 ml IV Q15MIN PRN PRN Reason: BG <50 OR BG <70 & pt unresponsive Stop: 06/14/24 01:21 Glucagon (Glucagon Inj 1 Mg Vial) 1 mg IM Q15MIN PRN PRN Reason: BG <70, and no IV access Hydralazine HCl (Hydralazine Hcl 25 Mg Tablet) 25 mg PO TID [facility] Stop: 06/17/24 21:59 Last Admin: 05/19/24 13:17 Dose: Not Given Ceftriaxone Sodium/Dextrose (Rocephin/D5w 1gm Iv Premix) 1 gm in 50 mls @ 100 mls/hr IV QDAY [facility] Stop: 05/29/24 07:49 Last Admin: 05/23/24 08:13 Dose: 100 mls/hr Albumin Human (Albuminar-25 Ivpb) 25 gm in 100 mls @ 100 mls/hr IV BID [facility] Stop: 05/26/24 15:54 Insulin Human Lispro (Insulin Lispro (Admelog) 1 Unit/0.01 Ml Unit) 0 unit SC ACHS [facility]; Protocol Stop: 06/19/24 17:29 Last Admin: 05/23/24 12:03 Dose: Not Given Lactulose (Lactulose Syrup 10 Gm/15 Ml) 200 gm MT TID [facility]; Protocol Stop: 06/22/24 13:59 Last Admin: 05/23/24 13:52 Dose: Not Given Midodrine (Midodrine 5 Mg Tablet) 5 mg PO TID PRN PRN Reason: HYPOTENSION Stop: 06/22/24 16:14 Ondansetron HCl (Ondansetron Inj 2 Mg/Ml Inj 2 Ml) 4 mg IV Q6H PRN; Protocol PRN Reason: NAUSEA OR VOMITING Stop: 06/14/24 01:16 Last Admin: 05/15/24 05:46 Dose: 4 mg Pantoprazole Sodium (Pantoprazole Inj 40 Mg Vial) 80 mg IVP BID [facility] Stop: 06/14/24 20:59 Last Admin: 05/23/24 08:13 Dose: 80 mg Pharmacy Consult (Vancomycin Pharmacy To Dose 1 Each Each) 1 each IV QDAY PRN PRN Reason: CONSULT Stop: 06/14/24 17:29 Rifaximin (Rifaximin 550 Mg Tablet) 550 mg PO BID [facility] Stop: 05/29/24 08:59 Last Admin: 05/23/24 08:13 Dose: 550 mg Simethicone (Simethicone 80 Mg Chew) 80 mg PO QID [facility] Stop: 06/21/24 17:59 Last Admin: 05/23/24 13:30 Dose: Not Given Sodium Bicarbonate (Sodium Bicarbonate 650 Mg Tablet) 650 mg PO BID [facility] Stop: 06/21/24 08:59 Last Admin: 05/23/24 08:13 Dose: 650 mg Discontinued Medications Albuterol/Ipratropium (Albuterol/Ipratropium (Duoneb) Rt Irina 3 Ml Nebu) 3 ml INH X1 ONE Stop: 05/20/24 15:54 Last Admin: 05/20/24 16:03 Dose: 3 ml Clonidine (Clonidine Hcl 0.1 Mg Tablet) 0.1 mg PO X1 ONE Stop: 05/18/24 19:08 Last Admin: 05/18/24 19:28 Dose: 0.1 mg Clonidine (Clonidine Hcl 0.1 Mg Tablet) 0.1 mg PO X1 ONE Stop: 05/19/24 00:10 Last Admin: 05/19/24 00:42 Dose: 0.1 mg Fentanyl Citrate (Fentanyl Cit Inj 50 Mcg/Ml Amp 2ml) 25 mcg IV Q2M PRN PRN Reason: MODERATE SEDATION Stop: 05/15/24 14:01 Fentanyl Citrate (Fentanyl Cit Inj 50 Mcg/Ml Amp 2ml) 50 mcg IV X1 ONE Stop: 05/15/24 12:26 Last Admin: 05/15/24 12:25 Dose: 50 mcg Fentanyl Citrate (Fentanyl Cit Inj 50 Mcg/Ml Amp 2ml) 50 mcg IV Q2M PRN PRN Reason: MODERATE SEDATION Stop: 05/17/24 20:40 Hydralazine HCl (Hydralazine Inj 20 Mg/Ml Vial) 10 mg IV X1 ONE Stop: 05/18/24 12:13 Last Admin: 05/18/24 12:20 Dose: 10 mg Hydralazine HCl (Hydralazine Inj 20 Mg/Ml Vial) 10 mg IV X1 ONE Stop: 05/18/24 12:53 Last Admin: 05/18/24 13:07 Dose: 10 mg Hydralazine HCl (Hydralazine Hcl 25 Mg Tablet) 25 mg PO TID PRN PRN Reason: hypertension Stop: 06/17/24 13:59 Last Admin: 05/18/24 15:07 Dose: 25 mg Ceftriaxone Sodium 1,000 mg/ (Sodium Chloride) 50 mls @ 100 mls/hr IV X1 ONE Stop: 05/14/24 22:50 Last Infusion: 05/14/24 23:05 Dose: Infused Octreotide Acetate 1,000 mcg/ (Sodium Chloride) 102 mls @ 5.1 mls/hr IV .Q20H [facility]; Protocol Stop: 05/19/24 22:22 Last Admin: 05/23/24 15:38 Dose: Not Given Octreotide Acetate 1,000 mcg/ (Sodium Chloride) 102 mls @ 5.1 mls/hr IV .Q20H [facility]; Protocol Stop: 05/15/24 18:29 Last Infusion: 05/15/24 17:45 Dose: 0 mcg/hr, 0 mls/hr Ceftriaxone Sodium 1,000 mg/ (Sodium Chloride) 50 mls @ 100 mls/hr IV QDAY [facility] Stop: 05/22/24 08:59 Albumin Human (Albuminar-25 Ivpb) 25 gm in 100 mls @ 100 mls/hr IV X1 ONE Stop: 05/15/24 02:25 Last Infusion: 05/15/24 02:54 Dose: Infused Albumin Human (Albuminar-25 Ivpb) 25 gm in 100 mls @ 100 mls/hr IV X1 ONE Stop: 05/15/24 02:26 Last Infusion: 05/15/24 04:08 Dose: Infused Albumin Human (Albuminar-25 Ivpb) 25 gm in 100 mls @ 100 mls/hr IV X1 ONE Stop: 05/15/24 02:26 Last Infusion: 05/15/24 06:00 Dose: Infused Albumin Human (Albuminar-25 Ivpb) 25 gm in 100 mls @ 100 mls/hr IV QDAY [facility] Stop: 05/18/24 07:48 Last Admin: 05/17/24 10:03 Dose: 100 mls/hr Lactated Ringer's (Lactated Ringers) 1,000 mls @ 999 mls/hr IV .Q1H1M ONE Stop: 05/15/24 09:39 Last Infusion: 05/15/24 11:01 Dose: Infused Lactated Ringer's (Lactated Ringers) 1,000 mls @ 999 mls/hr IV .Q1H1M ONE Stop: 05/15/24 10:18 Last Admin: 05/15/24 09:51 Dose: Not Given Lactated Ringer's (Lactated Ringers) 1,000 mls @ 999 mls/hr IV .Q1H1M ONE Stop: 05/15/24 10:19 Last Admin: 05/15/24 09:51 Dose: Not Given Piperacillin/Tazobactam/Dextrose (Zosyn) 3.375 gm in 50 mls @ 12.5 mls/hr IV Q8HR [facility]; Protocol Stop: 05/22/24 13:59 Last Admin: 05/18/24 13:07 Dose: 12.5 mls/hr Piperacillin/Tazobactam/Dextrose (Zosyn) 3.375 gm in 50 mls @ 100 mls/hr IV X1 ONE Stop: 05/15/24 10:14 Last Infusion: 05/15/24 16:00 Dose: Infused Lactated Ringer's (Lactated Ringers) 1,000 mls @ 999 mls/hr IV .Q1H1M ONE Stop: 05/15/24 11:30 Last Infusion: 05/15/24 12:00 Dose: 0 mls/hr Calcium Gluconate/Sodium Chloride (Calcium Gluc/Ns 1000mg Ivpb) 1,000 mg in 50 mls @ 50 mls/hr IV X1 ONE Stop: 05/15/24 12:27 Last Infusion: 05/15/24 13:00 Dose: Infused Dexmedetomidine/Sodium Chloride (Precedex Ivpb) 200 mcg in 50 mls @ 3.763 mls/hr IV .[id number] PRN; Protocol PRN Reason: Per PROTOCOL Stop: 06/14/24 12:25 Last Titration: 05/19/24 07:00 Dose: 0 mcg/kg/hr, 0 mls/hr Vancomycin/Sodium Chloride (Vancomycin/Ns 1 Gm Ivpb) 200 mls @ 120 mls/hr IV X1 ONE Stop: 05/15/24 19:39 Last Admin: 05/15/24 17:51 Dose: 120 mls/hr Norepinephrine/Dextrose (Levophed In D5w 8mg/250ml) 8 mg in 250 mls @ 6.966 mls/hr IV .Q24H PRN; Protocol PRN Reason: PER PROTOCOL Stop: 06/14/24 20:24 Last Titration: 05/17/24 16:50 Dose: 0 mcg/kg/min, 0 mls/hr Lactated Ringer's (Lactated Ringers) 1,000 mls @ 999 mls/hr IV .Q1H1M ONE Stop: 05/15/24 22:13 Last Infusion: 05/15/24 21:53 Dose: 0 mls/hr Vancomycin/Sodium Chloride (Vancomycin/Ns 500 Mg Ivpb) 100 mls @ 120 mls/hr IV X1 ONE Stop: 05/16/24 12:49 Last Admin: 05/16/24 13:32 Dose: 120 mls/hr Calcium Gluconate/Sodium Chloride (Calcium Gluc/Ns 1000mg Ivpb) 1,000 mg in 50 mls @ 50 mls/hr IV X1 ONE Stop: 05/16/24 15:19 Last Infusion: 05/16/24 17:51 Dose: Infused Vancomycin/Sodium Chloride (Vancomycin/Ns 500 Mg Ivpb) 100 mls @ 120 mls/hr IV X1 ONE Stop: 05/17/24 10:49 Last Admin: 05/17/24 10:03 Dose: 120 mls/hr Potassium Chloride (Kcl Ivpb) 10 meq in 100 mls @ 100 mls/hr IV Q1H [facility] Stop: 05/17/24 13:10 Last Admin: 05/23/24 15:44 Dose: Not Given Potassium Chloride (Kcl Ivpb) 10 meq in 100 mls @ 100 mls/hr IV Q1H [facility] Stop: 05/17/24 16:25 Last Admin: 05/17/24 14:44 Dose: 100 mls/hr Albumin Human (Albuminar-25 Ivpb) 12.5 gm in 50 mls @ 50 mls/hr IV X1 ONE Stop: 05/17/24 11:27 Last Admin: 05/17/24 13:23 Dose: 50 mls/hr Octreotide Acetate 1,000 mcg/ (Sodium Chloride) 102 mls @ 5.1 mls/hr IV .Q20H [facility]; Protocol Stop: 05/19/24 22:22 Last Admin: 05/19/24 09:37 Dose: Not Given Vancomycin/Sodium Chloride (Vancomycin/Ns 750 Mg Ivpb) 750 mg in 150 mls @ 120 mls/hr IV Q24H [facility]; Protocol Stop: 05/25/24 09:59 Last Admin: 05/23/24 15:45 Dose: Not Given Potassium Chloride (Kcl Ivpb) 20 meq in 100 mls @ 50 mls/hr IV Q2H [facility] Stop: 05/18/24 16:38 Last Admin: 05/18/24 16:24 Dose: 50 mls/hr Potassium Chloride (Kcl Ivpb) 10 meq in 100 mls @ 100 mls/hr IV Q1H [facility] Stop: 05/19/24 11:19 Last Admin: 05/19/24 12:38 Dose: Not Given Potassium Chloride (Kcl Ivpb) 20 meq in 100 mls @ 50 mls/hr IV Q2H [facility] Stop: 05/19/24 13:53 Last Infusion: 05/19/24 13:12 Dose: Infused Vancomycin/Sodium Chloride (Vancomycin/Ns 1 Gm Ivpb) 200 mls @ 120 mls/hr IV QDAY@1000 [facility] Stop: 05/28/24 10:29 Last Admin: 05/22/24 12:23 Dose: 120 mls/hr Lactated Ringer's (Lactated Ringers) 1,000 mls @ 250 mls/hr IV .Q4H ONE Stop: 05/22/24 11:56 Last Admin: 05/22/24 09:05 Dose: 250 mls/hr Vancomycin/Sodium Chloride (Vancomycin/Ns 500 Mg Ivpb) 100 mls @ 120 mls/hr IV X1 ONE Stop: 05/23/24 10:49 Last Admin: 05/23/24 11:00 Dose: 120 mls/hr Insulin Human Lispro (Insulin Lispro (Admelog) 1 Unit/0.01 Ml Unit) 0 unit SC Q6HR [facility]; Protocol Stop: 06/14/24 05:59 Last Admin: 05/20/24 11:40 Dose: Not Given Labetalol HCl (Labetalol Inj 5 Mg/Ml Vial 20 Ml) 10 mg IVP X1 ONE Stop: 05/18/24 10:53 Last Admin: 05/18/24 11:00 Dose: 10 mg Labetalol HCl (Labetalol Inj 5 Mg/Ml Vial 20 Ml) 10 mg IVP X1 ONE Stop: 05/18/24 11:49 Last Admin: 05/18/24 11:52 Dose: 10 mg Labetalol HCl (Labetalol Inj 5 Mg/Ml Vial 20 Ml) 10 mg IVP X1 ONE Stop: 05/18/24 16:16 Last Admin: 05/18/24 16:23 Dose: 10 mg Lactulose (Lactulose Syrup 20 Gm/30 Ml Udc) 20 gm MT TID [facility]; Protocol Stop: 06/14/24 07:59 Last Admin: 05/15/24 15:10 Dose: Not Given Lactulose (Lactulose Syrup 20 Gm/30 Ml Udc) 30 gm NG TID [facility]; Protocol Stop: 06/15/24 13:59 Lactulose (Lactulose Syrup 20 Gm/30 Ml Udc) 30 gm NG TID [facility]; Protocol Stop: 06/15/24 13:59 Last Admin: 05/18/24 05:02 Dose: 30 gm Lactulose (Lactulose Syrup 20 Gm/30 Ml Udc) 20 gm NG TID [facility]; Protocol Stop: 06/17/24 13:59 Last Admin: 05/19/24 13:15 Dose: 20 gm Lactulose (Lactulose Syrup 20 Gm/30 Ml Udc) 20 gm NG BID [facility]; Protocol Stop: 06/18/24 20:59 Last Admin: 05/21/24 08:14 Dose: 20 gm Lactulose (Lactulose Syrup 20 Gm/30 Ml Udc) 20 gm NG TID [facility]; Protocol Stop: 06/20/24 13:59 Last Admin: 05/21/24 21:59 Dose: 20 gm Lactulose (Lactulose Syrup 20 Gm/30 Ml Udc) 20 gm PO TID [facility]; Protocol Stop: 06/21/24 05:59 Last Admin: 05/23/24 05:22 Dose: 20 gm Lorazepam (Lorazepam 2 Mg/Ml Vial) 2 mg IVP X1 ONE Stop: 05/15/24 12:26 Last Admin: 05/15/24 12:25 Dose: 2 mg Metoclopramide HCl (Metoclopramide Inj 5 Mg/Ml Vial 2 Ml) 10 mg IVP X1 ONE; Protocol Stop: 05/14/24 22:23 Last Admin: 05/14/24 22:30 Dose: 10 mg Midazolam HCl (Midazolam Inj 1 Mg/Ml Vial 2 Ml) 2 mg IV Q2M PRN PRN Reason: Moderate Sedation Stop: 05/15/24 14:01 Midazolam HCl (Midazolam Inj 1 Mg/Ml Vial 2 Ml) 2 mg IV Q2M PRN PRN Reason: Moderate Sedation Stop: 05/17/24 20:40 Midazolam HCl (Midazolam Inj 1 Mg/Ml Vial 2 Ml) 2 mg IV X1 ONE Stop: 05/17/24 21:11 Last Admin: 05/17/24 21:15 Dose: 2 mg Octreotide Acetate (Octreotide Acet Inj 50 Mcg/Ml Vial) 50 mcg IV X1 ONE Stop: 05/14/24 21:32 Last Admin: 05/14/24 22:14 Dose: 50 mcg Pantoprazole Sodium (Pantoprazole Inj 40 Mg Vial) 80 mg IV X1 ONE Stop: 05/14/24 21:32 Last Admin: 05/14/24 22:12 Dose: 80 mg Pantoprazole Sodium (Pantoprazole Inj 40 Mg Vial) 40 mg IVP BID [facility] Stop: 06/14/24 08:59 Pantoprazole Sodium (Pantoprazole Inj 40 Mg Vial) 40 mg IV X1 ONE Stop: 05/15/24 09:36 Last Admin: 05/15/24 09:53 Dose: 40 mg Phytonadione (Phytonadione Inj 10 Mg/Ml Amp) 10 mg IM X1 ONE Stop: 05/15/24 09:22 Last Admin: 05/15/24 13:03 Dose: Not Given Potassium Chloride (Potassium Chloride 20 Meq Tabcr) 20 meq PO X1 ONE Stop: 05/17/24 15:01 Last Admin: 05/17/24 17:24 Dose: 20 meq Potassium Chloride (Potassium Chloride 20 Meq Tabcr) 40 meq PO X1 ONE Stop: 05/17/24 12:46 Last Admin: 05/17/24 13:06 Dose: 40 meq Potassium Chloride (Potassium Chloride 10% 20 Meq/15 Ml Udc) 40 meq PO X1 ONE Stop: 05/21/24 08:16 Last Admin: 05/21/24 08:17 Dose: 40 meq Rifaximin (Rifaximin 550 Mg Tablet) 550 mg NG BID [facility] Stop: 05/23/24 10:44 Last Admin: 05/21/24 21:58 Dose: 550 mg Rocuronium [place] (Rocuronium Inj 10 Mg/Ml Vial 10 Ml) 70 mg IV X1 ONE Stop: 05/15/24 12:26 Last Admin: 05/15/24 12:25 Dose: 70 mg Sodium Bicarbonate (Sodium Bicarb Inj 8.4% 1 Meq/Ml 50 Ml Vial) 50 meq IV X1 ONE Stop: 05/15/24 07:41 Last Admin: 05/15/24 08:40 Dose: 50 meq Sodium Bicarbonate (Sodium Bicarb Inj 8.4% 1 Meq/Ml 50 Ml Vial) 50 meq IV X1 ONE Stop: 05/15/24 07:41 Last Admin: 05/15/24 08:42 Dose: 50 meq Sodium Bicarbonate (Sodium Bicarb Inj 8.4% 1 Meq/Ml 50 Ml Vial) 50 meq IV X1 ONE Stop: 05/15/24 09:26 Last Admin: 05/15/24 09:40 Dose: 50 meq Sodium Bicarbonate (Sodium Bicarb Inj 8.4% 1 Meq/Ml 50 Ml Vial) 50 meq IV X1 ONE Stop: 05/15/24 14:39 Assessment & Plan Plan The patient is a 59-year-old male with a past medical history significant for alcohol use disorder, esophageal varices (status post banding), hypertension, hyperlipidemia, type 2 diabetes, HFpEF with an ejection fraction of 55-60%, and biliary dyskinesia. He was admitted to the hospital on 05/15/2024 following an episode of bloody emesis. Patient was upgraded to ICU due to hemorrhagic shock requiring pressors and intubation for airway protection. Today ICU team was consulted due to concern of abdominal compartment syndrome.. #Abdominal distention Concern for intra-abdominal compartment syndrome Today, the ICU team was consulted due to concerns about abdominal compartment syndrome that can be contributing factor for developing JEANIE. Bladder pressures were measured and were found to be greater than 20 mmHg, raising concerns. Initially, a paracentesis was planned, but bedside ultrasound did not reveal significant ascitic fluid. Additionally, an abdominal X-ray showed a mild ileus, which was concerning for a small bowel obstruction . Currently, the patient is saturating in room air and is not complaining of any abdominal distension or pain. An NG tube was placed to decompress the bowel, and the gastroenterology team is now involved. Dr. Liu will evaluate the patient to determine if a rectal tube will be needed for further bowel decompression. Repeat bladder pressure was found to be 13 after NG tube placement. Plan: For now, the ICU team will continue to monitor the patient closely. The decision regarding the rectal tube placement will be based on the gastroenterology team's evaluation. If the symptoms persist or worsen, we may consider performing a therapeutic paracentesis to address any fluid retention or abdominal compartment concerns. We will reassess the patient's condition tomorrow. #Acute decompensated cirrhosis #Esophageal varices status post band ligation #Hemorrhagic shock, resolved #Hepatic encephalopathy #Hyperammonemia #Cirrhosis secondary to EtOH #History of alcohol use disorder #Thrombocytopenia #Hypoalbuminemia #Transaminitis #HFpEF #DM type II #Acute kidney injury, likely prerenal To be managed per primary team Hospital management: Disposition: Telemetry Fluids: none Diet: Dysphagia 3 advanced Lines: PIV DVT prophylaxis: SCDs GI prophylaxis: pantoprazole 80 mg IV BID Sanchez: placed CODE STATUS: full code Patient care was discussed with attending physician Dr. Lisa Banks MD PGY-2
--- NOTE | 2024-05-23 18:07 | PD.IMPROG ---
Documentation for date of: 05/23/24 Subjective Subjective Interval history: Patient evaluated KUB shows dilatation of small bowel but no air-fluid level pattern consistent with more ileus than small bowel obstruction Ultrasound shows ascites No need for a rectal tube NGT to intermittent suction WBC count 32.2 with a hemoglobin hematocrit 10.9 and 31.3 Exam Vital Signs Temp Pulse Resp BP Pulse Ox O2 Del Method O2 Flow Rate 96.5 F L 69 18 119/64 95 Room Air 2 05/23/24 12:00 05/23/24 16:00 05/23/24 12:00 05/23/24 12:00 05/23/24 12:00 05/23/24 12:00 05/22/24 00:00 FiO2 30 05/22/24 00:00 Objective Labs 05/23/24 05:24 05/23/24 05:24 Labs: Laboratory Results - last 24 hr 05/23/24 05/23/24 05/23/24 05:24 08:05 10:44 WBC 32.2 H D RBC 3.66 L Hgb 10.9 L Hct 31.3 L MCV 86 MCH 29.8 MCHC 34.8 RDW Std Deviation 60.9 H Plt Count 38 L D Neut % (Auto) 91 H Lymph % (Auto) 3 L Gladwin % (Auto) 4 Eos % (Auto) 0 Baso % (Auto) 1 Neut # (Auto) 29.4 H Lymph # (Auto) 0.9 L Gladwin # (Auto) 1.1 H Eos # (Auto) 0.1 Baso # (Auto) 0.2 Immature Gran # (Auto) 0.48 H Absolute Nucleated RBC 0.04 H Immature Gran % 2 H Nucleated RBC % 0 PT INR APTT VBG pH 7.42 VBG pCO2 24 L VBG pO2 58 D VBG O2 Sat (Maurisio) 92 L VBG Base Excess -8 L Sodium 144 Potassium 4.2 Chloride 115 H Carbon Dioxide 14.8 L* Anion Gap 14 BUN 44 H Creatinine 2.3 H D Estim Creat Clear Calc 32.6 L eGFR 32 L BUN/Creatinine Ratio 19 Glucose 114 H Calculated Osmolality 299 H Lactic Acid 2.7 H Calcium 9.1 Corrected Calcium 10.1 Phosphorus 3.7 Magnesium 2.3 Total Bilirubin 34.6 H* D AST 82 H ALT 91 H Alkaline Phosphatase 167 H Ammonia 48 H Total Protein 5.5 L Albumin 2.7 L Globulin 2.8 Albumin/Globulin Ratio 1.0 L Misc Test Result Platelets confirmed 05/23/24 05/23/24 11:57 16:13 WBC RBC Hgb Hct MCV MCH MCHC RDW Std Deviation Plt Count Neut % (Auto) Lymph % (Auto) Gladwin % (Auto) Eos % (Auto) Baso % (Auto) Neut # (Auto) Lymph # (Auto) Gladwin # (Auto) Eos # (Auto) Baso # (Auto) Immature Gran # (Auto) Absolute Nucleated RBC Immature Gran % Nucleated RBC % PT 22.5 H INR 2.2 H APTT 49.9 H VBG pH VBG pCO2 VBG pO2 VBG O2 Sat (Maurisio) VBG Base Excess Sodium Potassium Chloride Carbon Dioxide Anion Gap BUN Creatinine Estim Creat Clear Calc eGFR BUN/Creatinine Ratio Glucose Calculated Osmolality Lactic Acid 2.7 H Calcium Corrected Calcium Phosphorus Magnesium Total Bilirubin AST ALT Alkaline Phosphatase Ammonia Total Protein Albumin Globulin Albumin/Globulin Ratio Misc Test Result Impressions Impression: Ascites Abdominal distention due to ascites and ileus NGT to intermittent suction N.p.o. Reglan 5 mg IV push every 6 Recommend ultrasound-guided paracentesis ABG Interpretation ABG results: 05/15/24 05/15/24 05/15/24 08:45 14:25 16:08 ABG pH 7.31 L 7.04 L* D 7.22 L D ABG pCO2 20 L 58 H D 35 D ABG pO2 116 H 330 H D 63 L D ABG HCO3 10 L 16 L 14 L ABG O2 Saturation 98 99 H 89 L ABG Base Excess -15 L -15 L -13 L VBG pH VBG pCO2 VBG pO2 VBG Base Excess 05/15/24 05/16/24 05/16/24 19:03 04:05 05:05 ABG pH 7.27 L 7.43 D 7.48 H ABG pCO2 27 L 56 H D 23 L D ABG pO2 85 D 160 H D 191 H D ABG HCO3 12 L 37 H 17 L ABG O2 Saturation 96 101 H 100 H ABG Base Excess -13 L 11 H -5 L VBG pH VBG pCO2 VBG pO2 VBG Base Excess 05/16/24 05/16/24 05/16/24 11:34 14:20 18:35 ABG pH 7.49 H 7.52 H 7.55 H ABG pCO2 27 L 26 L 25 L ABG pO2 173 H 160 H 201 H D ABG HCO3 21 21 21 ABG O2 Saturation 100 H 100 H 100 H ABG Base Excess -2 -1 0 VBG pH VBG pCO2 VBG pO2 VBG Base Excess 05/16/24 05/17/24 05/19/24 21:53 11:34 05:05 ABG pH 7.55 H 7.54 H 7.44 D ABG pCO2 25 L 26 L 32 ABG pO2 206 H 177 H D 80 L D ABG HCO3 22 22 22 ABG O2 Saturation 100 H 100 H 97 ABG Base Excess 0 0 -2 VBG pH VBG pCO2 VBG pO2 VBG Base Excess 05/20/24 05/22/24 05/23/24 04:55 09:46 08:05 ABG pH 7.43 ABG pCO2 32 ABG pO2 102 D ABG HCO3 21 ABG O2 Saturation 99 H ABG Base Excess -3 VBG pH 7.36 7.42 VBG pCO2 25 L 24 L VBG pO2 120 H 58 D VBG Base Excess -10 L -8 L Assessment & Plan A&P Narrative Acute upper GI bleed in the form of melena and hematemesis Acute posthemorrhagic anemia in the setting of chronic liver disease with thrombocytopenia and coagulopathy Plan Continue supportive care Patient will have to be intubated to protect the airway as well as he is clenching his mouth and I cannot open his jaw to place bite block I have asked the intensive care unit specialist Dr. Bruner to intubate the patient paralyze him so I can proceed with the procedure she was kind enough to do so Octreotide drip at 50 mcg/h Protonix drip Serial CBC Will follow the patient Time Spent With Patient Time: Total time spent is greater than 50% in coordination of care (as documented) at patient's floor/unit and/or counseling patient: Procedures Arterial Line Size (Gauge): 18
[2024-05-23] MEDS: ALBUMIN HUMAN 25% IVPB 25 GM/100 ML BTL IV ×2 (18:36→20:19)
--- NOTE | 2024-05-23 20:48 | PC.NURSE ---
clarified PO orders, per MD Ricks can hold meds for now as patient is on low intermittend suction/NPO and to mamadou lactulose
[2024-05-23] MEDS: LACTULOSE SYRUP 10 GM/15 ML 200 GM PR (21:29)
[2024-05-24] VITALS (40 sets, daily range): BP systolic 112–139; BP diastolic 61–88; PULSE 62–87; RESP 13–95; TEMP 35.4–36.4; O2SAT 93–99; BMI 28.7; BMI 12.0
--- NOTE | 2024-05-24 00:23 | XR_ITS ---
Examination: AP chest single view TECHNIQUE: AP portable chest single view Exam date and time: May 23, 2024 2333 hours INDICATIONS: Post orogastric tube placement FINDINGS: Orogastric tube tip in the stomach satisfactory position No free air Colonic small bowel ileus IMPRESSION: Orogastric tube projects in the stomach satisfactory position
--- NOTE | 2024-05-24 02:46 | XR_ITS ---
Examination: AP chest single view Technique one AP portable semiupright chest single view Exam date and time: May 24, 2024 1355 hours Comparison May 23, 2024 INDICATIONS: Reposition orogastric tube FINDINGS: Orogastric tube in stomach satisfactory position Subsegmental atelectasis at the lung bases Minimal prominence left ventricle IMPRESSION: Orogastric tube in the stomach satisfactory position
--- NOTE | 2024-05-24 03:21 | PC.NURSE ---
verified NG tube placement with INÉS Coats
[2024-05-24] MEDS: LACTULOSE SYRUP 10 GM/15 ML 200 GM PR ×2 (05:07→21:14)
[2024-05-24 05:54] LABS: Basophils # (Auto) 0.1 Thou/mm3 (0.0-0.2); Basophils % (Auto) 0 % (0-2.5); Eosinophils # (Auto) 0.1 Thou/mm3 (0.0-0.5); Eosinophils % (Auto) 1 % (0-10); Hematocrit 26.4 % (41.0-53.0); Hemoglobin 9.1 g/dL (13.5-16.0); Immature Granulocytes % (Auto) 2 % (0-0); Immature Granulocytes Auto 0.31 Thou/mm3 (0.00-0.00); Lymphocytes # (Auto) 1.2 Thou/mm3 (1.0-4.8); Lymphocytes % (Auto) 6 % (10-50); Mean Corpuscular HGB Conc 34.5 g/dl (31.0-37.0); Mean Corpuscular Hemoglobin 29.8 pg (25.0-35.0); Mean Corpuscular Volume 87 fL (80-100); Monocytes # (Auto) 0.9 Thou/mm3 (0.0-0.8); Monocytes % (Auto) 5 % (0-12); Neutrophils # (Auto) 16.4 Thou/mm3 (1.8-7.7); Neutrophils % (Auto) 87 % (37-80); Nucleated Red Blood Cell # 0.03 Thou/mm3 (0.00-0.00); Nucleated Red Blood Cell % 0 /100 WBC (0); RDW Standard Deviation 61.1 fL (35.1-43.9); Red Blood Count 3.05 Miln/mm3 (4.50-5.90)
[2024-05-24 05:55] LABS: Platelet Count 50 Thou/mm3 (140-440)
[2024-05-24 05:56] LABS: Slide Review Platelets confirmed
[2024-05-24 06:31] LABS: INR 2.4 (0.9-1.3); Partial Thromboplastin Time 58.4 Seconds (22.0-36.0); Prothrombin Time 24.3 Seconds (9.0-12.2)
[2024-05-24 06:35] LABS: Alanine Aminotransferase 71 U/L (10-49); Albumin, Serum 2.9 gm/dL (3.5-5.0); Albumin/Globulin Ratio 1.1 (1.2-2.2); Alkaline Phosphatase 142 U/L (46-116); Anion Gap 17 (7-16); Aspartate Amino Transferase 73 U/L (0-34); BUN/Creatinine Ratio 15 Ratio (12-20); Blood Urea Nitrogen 52 mg/dL (9-23); Calcium (Corrected) 10.9 mg/dL (8.5-10.1); Chloride 115 mMol/L (98-107); Creatinine (Component) 3.4 mg/dL (0.6-1.3); Estimated Creatinine Clearance 22.1 mL/min (>60); Globulin 2.7 gm/dL (2.3-3.5); Glucose 100 mg/dL (74-106); Magnesium 2.5 mg/dL (1.6-2.6); Osmolality,Calculated 306 (275-295); Phosphorous 5.8 mg/dL (2.4-5.1); Potassium 4.1 mMol/L (3.4-5.1); Sodium 147 mMol/L (136-145); Total Protein 5.6 gm/dL (5.7-8.2); eGFR 20 See Note
[2024-05-24 06:38] LABS: Bilirubin,Total 34.7 mg/dL (0.3-1.2)
--- NOTE | 2024-05-24 08:24 | ESPR_ITS ---
<Statement entered by Alison Gonzalez MD - 05/25/24 11:12> TOTAL CC TIME: 45 MIN I saw and evaluated the patient. I reviewed the resident?s note and agree with findings and plan as documented in the resident?s note. Upon my evaluation, this patient had a high probability of imminent or life- threatening deterioration due to acute severe on chronic liver failure, JEANIE, esophageal variceal bleeding, which required my direct attention, intervention, and personal management. This time is exclusive of time spent on procedures, which are documented separately if performed. Progressive liver failure with daily worsening synthetic function -likely contributing to the renal failure and possible HRS but also ischemic renal failure is on the ddx still making urine will cont to monitor w/ daily labs and will treat w/ albumin - cont midodrine EGD pending - consulted Dr. Liu again due to the recurring bleeding. octreotide added and will cont bid ppi high risk for recurring infections due to liver failure - cont zosyn strep bacteremia on admission noted - treated overall prognosis is quite poor due to the severe progressive liver failure in setting of alocholic cirrhosis and now likely ATN HD may be required GOC need to be discussed but unable to reach family - there is a friend however, and we plan on speaking with the friend in more detail. Documentation for date of: 05/24/24 Subjective Subjective Interval history: The patient is a 59-year-old male with a past medical history significant for alcohol use disorder, esophageal varices (status post banding), hypertension, hyperlipidemia, type 2 diabetes, HFpEF with an ejection fraction of 55-60%, and biliary dyskinesia. He was admitted to the hospital on 05/15/2024 following an episode of bloody emesis. On presentation, the patient was found to be encephalopathic and was unable to provide a clear history. He mentioned a history of multiple hospital admissions due to severe alcohol withdrawal. Initial Presentation: Upon admission, the patient?s blood pressure was on the lower end, but the MAP remained above 65 mmHg, which was maintained. The patient was also noted to have acute kidney injury, likely due to acute blood loss anemia. Laboratory results revealed lactic acidosis and hyperammonemia, which further complicated his clinical picture. During his hospital stay, the patient's condition deteriorated significantly. He developed severe anemia and continued to experience significant gastrointestina losses. A consultation with Dr. Liu was obtained, and the patient underwent EGD twice. The EGD revealed profuse bleeding, which was successfully managed with banding of the varices. Despite this, the patient?s hemoglobin dropped below 6 g/dL, and he required multiple units of packed red blood cells for transfusion. At one point, the patient became increasingly encephalopathic, and airway protection was required, necessitating intubation. Additionally patient blood pressure was on the low side requiring pressor support.patient underwent to hemorrhagic shock requiring multiple blood transfusion and vasopressors to maintain the blood pressure. Initially, the plan was to transfer the patient to a high-care facility for a TIPS procedure. However, due to his MELD-Na score and his unstable condition, many institutions declined the transfer. ICU Course: While in the ICU, the patient?s condition showed some improvement. He was successfully extubated, weaned off from pressors and his acute kidney injury resolved. Following the banding procedure, his hemoglobin stabilized, and hyperammonemia resolved with lactulose treatment. He was safely downgraded to the floor. 05/23/2024 Today, the ICU team was consulted due to concerns about abdominal compartment syndrome. Bladder pressures were measured and were found to be greater than 20 mmHg, raising concerns. Initially, a paracentesis was planned, but bedside ultrasound did not reveal significant ascitic fluid. Additionally, an abdominal X-ray showed a mild ileus, which was concerning for a small bowel obstruction . Currently, the patient is saturating in room air and is not complaining of any abdominal distension or pain. An NG tube was placed to decompress the bowel, and the gastroenterology team is now involved. GI will evaluate the patient to determine if a rectal tube will be needed for further bowel decompression. 05/24/24:Patient was seen and examined at bedside. . Patient bladder pressure in a morning was 17, had 250 cc of urine output and 2 BM. labs revieled worsening kidney function, creatinine went up from 2.3 to 3.4, BUN is 52, AG is 17, Lactic acid will be checked, patient also devoloped respiratory alkalosis most likely in a setting of tachipnea. Concern of hepatorenal syndrom, ICU team was consulted due to concern of abdominal compartment syndrome and progressively worsening kidney function. Patient is a high risk of aspiration and severe GI bleed, patient will be upgraded to ICU for close monitoring of hemodynamics. Exam Vital Signs Temp Pulse Resp BP Pulse Ox O2 Del Method O2 Flow Rate 97.6 F 82 20 136/67 H 95 Room Air 2 05/24/24 04:00 05/24/24 07:38 05/24/24 07:38 05/24/24 04:00 05/24/24 07:38 05/24/24 04:00 05/22/24 00:00 FiO2 30 05/22/24 00:00 Narrative Exam GENERAL:Severly icteric Ill looking man, HEENT: Normocephalic, atraumatic. Pupils are equal and reactive. icteric sclera, teeth loose. NECK: Supple, nontender, no JVD CARDIOVASCULAR: Heart regular rhythm & rate. S1/S2. no murmur or gallop rub or extra beats. LUNGS:bilaterally expiratory wheezing with symmetrical chest rise. No crackles . No intercostal subcostal retraction. No rales and no rhonchi. ABDOMEN: Distended Active and normal bowel sounds. EXTREMITIES/skin : Icteric , small necrotic area around right big toe . Objective Labs 05/25/24 05:10 05/25/24 05:10 Labs: Laboratory Results - last 24 hr 05/23/24 05/23/24 05/23/24 08:05 10:44 11:57 WBC RBC Hgb Hct MCV MCH MCHC RDW Std Deviation Plt Count Neut % (Auto) Lymph % (Auto) Bland % (Auto) Eos % (Auto) Baso % (Auto) Neut # (Auto) Lymph # (Auto) Bland # (Auto) Eos # (Auto) Baso # (Auto) Immature Gran # (Auto) Absolute Nucleated RBC Immature Gran % Nucleated RBC % PT INR APTT VBG pH 7.42 VBG pCO2 24 L VBG pO2 58 D VBG O2 Sat (Maurisio) 92 L VBG Base Excess -8 L Sodium Potassium Chloride Carbon Dioxide Anion Gap BUN Creatinine Estim Creat Clear Calc eGFR BUN/Creatinine Ratio Glucose Calculated Osmolality Lactic Acid 2.7 H 2.7 H Calcium Corrected Calcium Phosphorus Magnesium Total Bilirubin AST ALT Alkaline Phosphatase Ammonia 48 H Total Protein Albumin Globulin Albumin/Globulin Ratio Misc Test Result 05/23/24 05/24/24 16:13 04:57 WBC 19.0 H D RBC 3.05 L Hgb 9.1 L Hct 26.4 L MCV 87 MCH 29.8 MCHC 34.5 RDW Std Deviation 61.1 H Plt Count 50 L D Neut % (Auto) 87 H Lymph % (Auto) 6 L Bland % (Auto) 5 Eos % (Auto) 1 Baso % (Auto) 0 Neut # (Auto) 16.4 H Lymph # (Auto) 1.2 Bland # (Auto) 0.9 H Eos # (Auto) 0.1 Baso # (Auto) 0.1 Immature Gran # (Auto) 0.31 H Absolute Nucleated RBC 0.03 H Immature Gran % 2 H Nucleated RBC % 0 PT 22.5 H 24.3 H INR 2.2 H 2.4 H APTT 49.9 H 58.4 H VBG pH VBG pCO2 VBG pO2 VBG O2 Sat (Maurisio) VBG Base Excess Sodium 147 H Potassium 4.1 Chloride 115 H Carbon Dioxide 15.0 L Anion Gap 17 H BUN 52 H Creatinine 3.4 H D Estim Creat Clear Calc 22.1 L eGFR 20 L BUN/Creatinine Ratio 15 Glucose 100 Calculated Osmolality 306 H Lactic Acid Calcium 10.0 Corrected Calcium 10.9 H Phosphorus 5.8 H Magnesium 2.5 Total Bilirubin 34.7 H* AST 73 H ALT 71 H Alkaline Phosphatase 142 H D Ammonia Total Protein 5.6 L Albumin 2.9 L Globulin 2.7 Albumin/Globulin Ratio 1.1 L Misc Test Result Platelets confirmed ABG Interpretation ABG results: 05/15/24 05/15/24 05/15/24 08:45 14:25 16:08 ABG pH 7.31 L 7.04 L* D 7.22 L D ABG pCO2 20 L 58 H D 35 D ABG pO2 116 H 330 H D 63 L D ABG HCO3 10 L 16 L 14 L ABG O2 Saturation 98 99 H 89 L ABG Base Excess -15 L -15 L -13 L VBG pH VBG pCO2 VBG pO2 VBG Base Excess 05/15/24 05/16/24 05/16/24 19:03 04:05 05:05 ABG pH 7.27 L 7.43 D 7.48 H ABG pCO2 27 L 56 H D 23 L D ABG pO2 85 D 160 H D 191 H D ABG HCO3 12 L 37 H 17 L ABG O2 Saturation 96 101 H 100 H ABG Base Excess -13 L 11 H -5 L VBG pH VBG pCO2 VBG pO2 VBG Base Excess 05/16/24 05/16/24 05/16/24 11:34 14:20 18:35 ABG pH 7.49 H 7.52 H 7.55 H ABG pCO2 27 L 26 L 25 L ABG pO2 173 H 160 H 201 H D ABG HCO3 21 21 21 ABG O2 Saturation 100 H 100 H 100 H ABG Base Excess -2 -1 0 VBG pH VBG pCO2 VBG pO2 VBG Base Excess 05/16/24 05/17/24 05/19/24 21:53 11:34 05:05 ABG pH 7.55 H 7.54 H 7.44 D ABG pCO2 25 L 26 L 32 ABG pO2 206 H 177 H D 80 L D ABG HCO3 22 22 22 ABG O2 Saturation 100 H 100 H 97 ABG Base Excess 0 0 -2 VBG pH VBG pCO2 VBG pO2 VBG Base Excess 05/20/24 05/22/24 05/23/24 04:55 09:46 08:05 ABG pH 7.43 ABG pCO2 32 ABG pO2 102 D ABG HCO3 21 ABG O2 Saturation 99 H ABG Base Excess -3 VBG pH 7.36 7.42 VBG pCO2 25 L 24 L VBG pO2 120 H 58 D VBG Base Excess -10 L -8 L Quality Measures Quality Measures VTE prophylaxis Assessment & Plan Assessment Current Active Medications: Generic Name Dose Route Start Last Admin Trade Name Freq PRN Reason Stop Dose Admin Acetaminophen 650 mg 05/15/24 01:17 Acetaminophen Supp 650 Mg Supp MT 06/14/24 01:16 Q6HR PRN pain and Fever > 100.4 Albuterol/Ipratropium 3 ml 05/20/24 15:53 Albuterol/Ipratropium (Duoneb) Rt Irina 3 Ml Nebu INH 06/19/24 15:52 Q6HRRT PRN SHORTNESS OF BREATH OR WHEEZE Cholestyramine Resin 1 pkt 05/18/24 21:00 05/24/24 08:07 Cholestyramine/Sucrose 1 Pkt Ea PO 06/17/24 20:59 Not Given BID SREE Dextrose 25 ml 05/15/24 01:22 Dextrose 50%-Water Inj 50 Ml Syringe IV 06/14/24 01:21 Q15MIN PRN BG 50-70 responsive npo pt Dextrose 50 ml 05/15/24 01:22 Dextrose 50%-Water Inj 50 Ml Syringe IV 06/14/24 01:21 Q15MIN PRN BG <50 OR BG <70 & pt unresponsive Glucagon 1 mg 05/15/24 01:22 Glucagon Inj 1 Mg Vial IM Q15MIN PRN BG <70, and no IV access Hydralazine HCl 25 mg 05/18/24 22:00 05/19/24 13:17 Hydralazine Hcl 25 Mg Tablet PO 06/17/24 21:59 Not Given TID SREE Ceftriaxone Sodium/Dextrose 1 gm in 50 mls @ 100 mls/hr 05/22/24 07:50 05/23/24 08:13 Rocephin/D5w 1gm Iv Premix IV 05/29/24 07:49 100 mls/hr QDAY SREE Administration Albumin Human 25 gm in 100 mls @ 100 mls/hr 05/23/24 15:55 05/23/24 20:19 Albuminar-25 Ivpb IV 05/26/24 15:54 100 mls/hr BID SREE Administration Dextrose/Lactated Ringer's 500 mls @ 100 mls/hr 05/24/24 08:21 D5-Lr IV 05/24/24 12:56 .Q5H ONE Insulin Human Lispro 0 unit 05/20/24 17:30 05/24/24 08:04 Insulin Lispro (Admelog) 1 Unit/0.01 Ml Unit SC 06/19/24 17:29 Not Given ACHS [facility] Protocol Lactulose 200 gm 05/23/24 14:00 05/24/24 05:07 Lactulose Syrup 10 Gm/15 Ml MT 06/22/24 13:59 200 gm TID SREE Administration Protocol Midodrine 5 mg 05/23/24 16:03 Midodrine 5 Mg Tablet PO 06/22/24 16:14 TID PRN HYPOTENSION Ondansetron HCl 4 mg 05/15/24 01:17 05/15/24 05:46 Ondansetron Inj 2 Mg/Ml Inj 2 Ml IV 06/14/24 01:16 4 mg Q6H PRN Administration NAUSEA OR VOMITING Protocol Pantoprazole Sodium 80 mg 05/15/24 21:00 05/23/24 20:16 Pantoprazole Inj 40 Mg Vial IVP 06/14/24 20:59 80 mg BID SREE Administration Pharmacy Consult 1 each 05/15/24 17:30 Vancomycin Pharmacy To Dose 1 Each Each IV 06/14/24 17:29 QDAY PRN CONSULT Rifaximin 550 mg 05/22/24 09:00 05/24/24 08:07 Rifaximin 550 Mg Tablet PO 05/29/24 08:59 Not Given BID SREE Simethicone 80 mg 05/22/24 18:00 05/24/24 08:04 Simethicone 80 Mg Chew PO 06/21/24 17:59 Not Given QID SREE Sodium Bicarbonate 650 mg 05/22/24 09:00 05/24/24 08:07 Sodium Bicarbonate 650 Mg Tablet PO 06/21/24 08:59 Not Given BID SREE Plan The patient is a 59-year-old male with a past medical history significant for alcohol use disorder, esophageal varices (status post banding), hypertension, hyperlipidemia, type 2 diabetes, HFpEF with an ejection fraction of 55-60%, and biliary dyskinesia. He was admitted to the hospital on 05/15/2024 following an episode of bloody emesis. Patient was upgraded to ICU due to hemorrhagic shock requiring pressors and intubation for airway protection. ICU team was consulted due to concern of abdominal compartment syndrome and progressively worsening kidney function. Patient is a high risk of aspiration and severe GI bleed, patient will be upgraded to ICU for close monitoring of hemodynamics. [employer] Acute metabolic encephalopathy multifactorial, could be secondary due to hyperammonemia as well as acute GI bleed, underlying infection. Patient today upon my evaluation AOx2 ? CT head negative ? Ammonia down trended MT ? Patient is on lactulose ? Continue rifaximin 550 twice daily ? Frequent mental status reassessment Respiratory Patient is a very high risk of aspiration, will need close monitoring in ICU. Patient will have a NG tube placement with intermittent suction Patient saturated on room air Respiratory alkalosis in the setting of tachypnea Patient completed antibiotic for pneumonia seen on the chest x-ray [facility] #mixed hypovolemic(class 3 hemorrhagic shock) +septic shock-resolved Class III hemorrhage involves a 30 to 40 percent blood volume loss, resulting in a significant drop in blood pressure and changes in mental status.He has received massive blood transfusion, calcium was replaced #History of hypertension #History of hyperlipidemia #HFpEF 55 to 60% Currently blood pressure is under control We will discontinue hydralazine GI #Acute GI bleed #History of grade 3 esophageal varices status post banding #History of alcohol use disorder Patient was in ICU until 05/19/2024 due to hemorrhagic shock, received multiple blood products transfusion. 05/17:Dr. Liu did EGD:Grade 2 esophageal varices, banded, erythematous mucosa in the stomach. Diffuse mucosal oozing of blood in the setting of portal hypertension with blood clots in the proximal body of the stomach, underlying surface could not be evaluated for fundic gastric varices. Per GI recommended to continue octreotide infusion and Protonix, support with blood products 05/24/2024: Patient had bloody NG tube output, about 300 mL was removed. -Continue PPI -Started on octreotide drip -Will try to keep patient normotensive -Dr. Liu was contacted, patient will have EGD today -Patient will be n.p.o., we will start PPN. #Cirrhosis #Acute on chronic liver failure #Hyperbilirubinemia #Hyperammonemia #Hypoalbuminemia #Ascites Bedside ultrasound revealed ascites, mild/to moderate, was likely causing compartment syndrome. Patient at some point will need paracentesis, currently he is not stable enough, we will address GI bleed first, we will monitor the patient for now. -Continue octreotide drip -Patient started on albumin -started midodrin 10 TID -Continue ceftriaxone -Attempt was made to transfer patient for TIPS, however transfer was declined from multiple institutions due to high risk #Abdominal distention Concern for intra-abdominal compartment syndrome ICU team was consulted due to concerns about abdominal compartment syndrome that can be contributing factor for developing JEANIE. Bladder pressures were measured and were found to be greater than 20 mmHg, raising concerns. Initially, a paracentesis was planned, but bedside ultrasound did not reveal significant ascitic fluid. Additionally, an abdominal X-ray showed a mild ileus, which was concerning for a small bowel obstruction . Currently, the patient is saturating in room air and is not complaining of any abdominal distension or pain. An NG tube was placed to decompress the bowel, Repeat bladder pressure was found to be 13 after NG tube placement. -we will continue monitor -monitor UO Renal #Prerenal JEANIE versus ATN #Fluctuating hypertension that can be causing severe renal function #Concern for hepatorenal Patient noticed to have worsening renal function, decreased urine output. -Midodrine 10 3 times daily -Albumin 1 g/kg for the first 2 days, then patient will be transition to 25 g daily -Sanchez is in place -Avoid nephrotoxic agents -renal US -nephrology is on board -Renally dose medication -Continue to monitor #AGMA and NAGMA #JEANIE prerenal in a setting of dehidration /GI loss versus Hepatorenal AG is 17, with corrected albumin 22.25, delta/delta 0.9 suggestive AGMA most likely in a setting of lactic acidosis/starvation ketoacidodsis, will abtain lactic acid and beta- hydroxybutirate, NAGMA/Hyperchloremic acidosis, most likely due to GI loss, as patient is on lactulos and having multiple BM, versus RTA type 1 versus 2. Most likely in the setting of renal failure Delta gap below 1 Compensated with respiratory alkalosis -Nephrology was consulted -Will follow-up. Kidney ultrasound -Will continue close monitor urine output #Hyperchloremic hypernatremia Could be secondary due to dehydration Patient currently is receiving [id number] 100 cc/h Patient will be started on PPI no overnight acute events ENDO #DM2 -A1c 6.7% on 04/2024 -ISS - Hypoglycemia protocol ordered Hematology #Thrombocytopenia #Acute blood loss anemia -H&H every 6 hours -Continue close monitor, transfuse if hemoglobin less than 7 ID GPC/Streptococcus anginosus Group bacteremia on culture that was drawn 05/14/2024, ID is on board, patient received Broad-spectrum antibiotics, vancomycin was stopped by ID, currently is on ceftriaxone. Pending final echo reading. Echo was done, pending read Repeat blood culture is negative Hospital management: Disposition: ICU Fluids: none Diet:PPN Lines: PIV DVT prophylaxis: SCDs GI prophylaxis: pantoprazole 80 mg IV BID Sanchez: placed CODE STATUS: full code Patient care was discussed with attending physician Dr. Lisa Banks MD PGY-2
[2024-05-24 08:57] LABS: Lactate (Lactic Acid) 2.6 mMol/L (0.4-2.0)
[2024-05-24 09:01] LABS: Beta Hydroxybutyrate 0.2 mmol/L (<0.6)
[2024-05-24 09:21] LABS: Vancomycin,Trough 26.7 mcg/mL (5.0-10.0)
--- NOTE | 2024-05-24 09:30 | XR_ITS ---
Examination: Retroperitoneal ultrasound, complete Technique: Multiple high resolution grayscale images of the retroperitoneum obtained, including kidneys and bladder. Exam date and time:May 25, 2019 5:11 AM INDICATIONS: Acute renal insufficiency on laboratory examination today FINDINGS: Right kidney 12.3 cm cortex 1.7 cm Left kidney 11.6 cm renal cortex 1.9 cm Mild bilateral renal parenchymal scar formation No hydronephrosis Bladder prevoid volume 70 cc urinary Sanchez catheter Mild free fluid in the abdomen IMPRESSION: Mild bilateral renal parenchymal scar formation, no hydronephrosis
[2024-05-24] MEDS: PANTOPRAZOLE INJ 40 MG VIAL 80 MG IVP ×2 (09:57→21:12)
--- NOTE | 2024-05-24 09:57 | ESPR_ITS ---
Subjective Subjective Interval history: strep bacteremia. on vanco and rocephin. already over treated a bit. hx of liver disease noted. apparently etoh in origin. hep panel neg. Exam Vital Signs Temp Pulse Resp BP Pulse Ox O2 Del Method O2 Flow Rate 97.6 F 82 20 136/67 H 95 Room Air 2 05/24/24 04:00 05/24/24 07:38 05/24/24 07:38 05/24/24 04:00 05/24/24 07:38 05/24/24 04:00 05/22/24 00:00 FiO2 30 05/22/24 00:00 Objective - Internal Medicine Labs 05/24/24 04:57 05/24/24 04:57 Labs: Laboratory Results - last 24 hr 05/23/24 05/23/24 05/23/24 10:44 11:57 16:13 WBC RBC Hgb Hct MCV MCH MCHC RDW Std Deviation Plt Count Neut % (Auto) Lymph % (Auto) [place] % (Auto) Eos % (Auto) Baso % (Auto) Neut # (Auto) Lymph # (Auto) [place] # (Auto) Eos # (Auto) Baso # (Auto) Immature Gran # (Auto) Absolute Nucleated RBC Immature Gran % Nucleated RBC % PT 22.5 H INR 2.2 H APTT 49.9 H Sodium Potassium Chloride Carbon Dioxide Anion Gap BUN Creatinine Estim Creat Clear Calc eGFR BUN/Creatinine Ratio Glucose Calculated Osmolality Lactic Acid 2.7 H Calcium Corrected Calcium Phosphorus Magnesium Total Bilirubin AST ALT Alkaline Phosphatase Ammonia 48 H Total Protein Albumin Globulin Albumin/Globulin Ratio Beta-Hydroxybutyrate/Acetoacetate Vancomycin Trough Misc Test Result 05/24/24 05/24/24 04:57 08:34 WBC 19.0 H D RBC 3.05 L Hgb 9.1 L Hct 26.4 L MCV 87 MCH 29.8 MCHC 34.5 RDW Std Deviation 61.1 H Plt Count 50 L D Neut % (Auto) 87 H Lymph % (Auto) 6 L [place] % (Auto) 5 Eos % (Auto) 1 Baso % (Auto) 0 Neut # (Auto) 16.4 H Lymph # (Auto) 1.2 [place] # (Auto) 0.9 H Eos # (Auto) 0.1 Baso # (Auto) 0.1 Immature Gran # (Auto) 0.31 H Absolute Nucleated RBC 0.03 H Immature Gran % 2 H Nucleated RBC % 0 PT 24.3 H INR 2.4 H APTT 58.4 H Sodium 147 H Potassium 4.1 Chloride 115 H Carbon Dioxide 15.0 L Anion Gap 17 H BUN 52 H Creatinine 3.4 H D Estim Creat Clear Calc 22.1 L eGFR 20 L BUN/Creatinine Ratio 15 Glucose 100 Calculated Osmolality 306 H Lactic Acid 2.6 H Calcium 10.0 Corrected Calcium 10.9 H Phosphorus 5.8 H Magnesium 2.5 Total Bilirubin 34.7 H* AST 73 H ALT 71 H Alkaline Phosphatase 142 H D Ammonia Total Protein 5.6 L Albumin 2.9 L Globulin 2.7 Albumin/Globulin Ratio 1.1 L Beta-Hydroxybutyrate/Acetoacetate 0.2 Vancomycin Trough 26.7 H* Misc Test Result Platelets confirmed ABG Interpretation ABG results: 05/15/24 05/15/24 05/15/24 08:45 14:25 16:08 ABG pH 7.31 L 7.04 L* D 7.22 L D ABG pCO2 20 L 58 H D 35 D ABG pO2 116 H 330 H D 63 L D ABG HCO3 10 L 16 L 14 L ABG O2 Saturation 98 99 H 89 L ABG Base Excess -15 L -15 L -13 L VBG pH VBG pCO2 VBG pO2 VBG Base Excess 05/15/24 05/16/24 05/16/24 19:03 04:05 05:05 ABG pH 7.27 L 7.43 D 7.48 H ABG pCO2 27 L 56 H D 23 L D ABG pO2 85 D 160 H D 191 H D ABG HCO3 12 L 37 H 17 L ABG O2 Saturation 96 101 H 100 H ABG Base Excess -13 L 11 H -5 L VBG pH VBG pCO2 VBG pO2 VBG Base Excess 05/16/24 05/16/24 05/16/24 11:34 14:20 18:35 ABG pH 7.49 H 7.52 H 7.55 H ABG pCO2 27 L 26 L 25 L ABG pO2 173 H 160 H 201 H D ABG HCO3 21 21 21 ABG O2 Saturation 100 H 100 H 100 H ABG Base Excess -2 -1 0 VBG pH VBG pCO2 VBG pO2 VBG Base Excess 05/16/24 05/17/24 05/19/24 21:53 11:34 05:05 ABG pH 7.55 H 7.54 H 7.44 D ABG pCO2 25 L 26 L 32 ABG pO2 206 H 177 H D 80 L D ABG HCO3 22 22 22 ABG O2 Saturation 100 H 100 H 97 ABG Base Excess 0 0 -2 VBG pH VBG pCO2 VBG pO2 VBG Base Excess 05/20/24 05/22/24 05/23/24 04:55 09:46 08:05 ABG pH 7.43 ABG pCO2 32 ABG pO2 102 D ABG HCO3 21 ABG O2 Saturation 99 H ABG Base Excess -3 VBG pH 7.36 7.42 VBG pCO2 25 L 24 L VBG pO2 120 H 58 D VBG Base Excess -10 L -8 L Assessment & Plan A&P Narrative bacteremia. 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 avoid etoh completely ok to stop rocephin at your discretion. does not seem like endocarditis. if you think that is it, then get an echo and change rocephin to 2 gm iv q24 will check in briefly on fri if we are targeting the bacteremia, I note that pts with liver disease may not handle bacteremia well. also note lulú. may be vanco induced. vanco role absent. will stop it today Time Spent With Patient Time: Total time spent is greater than 50% in coordination of care (as documented) at patient's floor/unit and/or counseling patient:
[2024-05-24] MEDS: ALBUMIN HUMAN 25% IVPB 25 GM/100 ML BTL IV ×3 (09:58→21:13)
[2024-05-24] MEDS: cefTRIAXone/D5w 1gm IV premix 1 GM/50 ML BAG IV (09:58)
[2024-05-24 10:16] LABS: Cholesterol 77 mg/dL (132-200); HDL Cholesterol < 5 mg/dL (40-60); LDL Cholesterol,Calculated 50 mg/dL (0-130); Triglycerides 112 mg/dL (30-150)
[2024-05-24 11:51] LABS: Reflex Lactate? Y
--- NOTE | 2024-05-24 11:57 | ESPR_ITS ---
<Statement entered by Amado Cooper MD - 05/24/24 15:05> Patient was seen and examined at bedside. No acute overnight events were reported. Patient appears mildly altered and continues to have abdominal distention. Patient was seen in the ICU. Patient NG tube twice. NG output was dark blood. This morning, labs were worsening. Vitals were stable. White count down trended. Hemoglobin down trended at 9.1. Hyponatremia sodium 147. Bicarb low at 15. BUN 52 and creatinine 3.4 worsening. Phosphorus 5.4. INR 2.4. Urine output was 750 net -650. Nephrology was consulted based on ICU team recommendations considering most likely ATN developing due to mixed component of variability in the blood pressure as well as acute on chronic decompensated liver cirrhosis. Nephrology following the case. Patient is upgraded to ICU for further management. ICU team will decide if they want to perform paracentesis. Will continue to reach out hospice social worker were updated. Albumin is increased to 4 times daily. Patient's family for goals of care discussion due to patient's deteriorating condition. Worsening JEANIE is most likely related to ATN. Urine output is minimal. Mild fluid bolus was given this morning. All labs and orders were reviewed. I saw and examined the patient, and I agree with current management stated by Dr Ronak MD,PGY1. Plan of care was discussed with the attending physician and resident physician. Disclaimer: Despite multiple revisions, due to the dictation software being used, the document bellow may not be free of grammatical errors including phonetic/typographic errors. However, this does not deter from our commitment to providing health care in the patient's best interest in mind. Dr. Kenneth MD, PGY 2 Documentation for date of: 05/24/24 Subjective Subjective Interval history: Benjamin Villarreal is a 59-year-old male with PMHX of alcohol use disorder, esophageal varices s/p banding, hypertension, hyperlipidemia, DM2, HFpEF (EF 55 to 60%) and biliary dyskinesia who was admitted 05/15 after coming to ED with complaints of black starry stools and witnessed bloody emesis. Upon night resident evaluation, unable to provide history and was only oriented to self and followed simple commands only. Per chart review, patient had been having black starry stools for 4 days and was hypoxic when EMS evaluated patient. Stated that he has not drank alcohol for the past 15 days. Of note, he was recently discharged from hospital after coming with similar complaints and underwent EGD that revealed grade 3 esophageal varices which were banded and ligated. On 05/15, patient had rapid response for large volume, dark-colored bloody stool and was upgraded to ICU for pressor support and mechanical ventilation for airway management. He has thus far been extubated and off pressors and downgraded to floors on 05/19 for further management. He has received a total of 8 units PRBC, 2 units FFP, and 2 units of platelets. 05/20: No acute overnight events reported. Seen and examined at bedside in ICU as telemetry overflow. States that he does not have any complaints at this time, including abdominal pain, nausea, or vomiting. However, abdominal x-ray showed mild to moderate small bowel ileus. Neurology following and wants to follow-up with another EEG given prior EEG abnormal findings. 05/22: No acute overnight events noted. Seen and examined at bedside in telemetry. Patient states that he does not have a complaint at this time. Abdomen continues to be distended and firm but patient denies nausea, vomiting, abdominal pain and states that he has been burping and passing gas. 05/23: No acute overnight events noted. Seen and examined at bedside in telemetry. Appeared to have increased work of breathing and repeat abdominal XR and ultrasound obtained that showed small bowel ileus and mild-moderate ascites, respectively. Concerns for intra-abdominal hypertension given findings of decreased UOP, increase in Cr from 1.4 to 2.3, and increase in WBC from 22 to 32 in addition to distended abdomen. Thus, NGT placed on LIS and bladder pressure obtained of 20. Repeat showed bladder pressure of 13 while on NGT, with output of approximately 300 cc of red/brown colored fluid. Attempted paracentesis, but unable to find appropriate pocket so will reattempt tomorrow. 05/24: No acute overnight events noted. Seen and examined at bedside and noted to be alert and oriented to self ambulate only with slurred speech. He does not have any complaints, including abdominal pain, nausea, vomiting. Bladder pressure noted to be 17 in a.m. with 250 cc of urine output with 2 BMs. NG tube output of approximately 300 cc of dark-colored blood with downtrending hemoglobin from 10.9 to 9.1. Renal function continues to decline with increasing creatinine from 2.3 to 3.4 and so nephrology was consulted. ICU consulted due to concern for intra-abdominal hypertension with progressive worsening kidney function and due to high risk of aspiration and severe GI bleed, patient was upgraded to ICU for closer monitoring. Exam Vital Signs Temp Pulse Resp BP Pulse Ox O2 Del Method O2 Flow Rate 97.0 F 76 18 126/70 99 Room Air 2 05/24/24 08:00 05/24/24 08:00 05/24/24 08:00 05/24/24 08:00 05/24/24 08:00 05/24/24 08:00 05/22/24 00:00 FiO2 30 05/22/24 00:00 Narrative Exam General: laying in bed comfortably, jaundiced, ill-appearing HEENT: scleral icterus, NC/AT, mucous membranes moist Cardiovascular: regular rate and rhythm, S1/S2 present, no murmurs appreciated Pulmonary: coarse lung sounds appreciated, no wheezing or crackles Abdominal: distended, firm, tympanic, non-tender, no rebound/guarding Musculoskeletal: normal ROM, no peripheral edema Skin: jaundiced, warm and dry, intact, no rashes Neuro: Alert and oriented x 2, increasing slurred speech compared to yesterday Objective Labs 05/25/24 05:10 05/25/24 05:10 Labs: Laboratory Results - last 24 hr 05/23/24 05/23/24 05/24/24 11:57 16:13 04:57 WBC 19.0 H D RBC 3.05 L Hgb 9.1 L Hct 26.4 L MCV 87 MCH 29.8 MCHC 34.5 RDW Std Deviation 61.1 H Plt Count 50 L D Neut % (Auto) 87 H Lymph % (Auto) 6 L [place] % (Auto) 5 Eos % (Auto) 1 Baso % (Auto) 0 Neut # (Auto) 16.4 H Lymph # (Auto) 1.2 [place] # (Auto) 0.9 H Eos # (Auto) 0.1 Baso # (Auto) 0.1 Immature Gran # (Auto) 0.31 H Absolute Nucleated RBC 0.03 H Immature Gran % 2 H Nucleated RBC % 0 PT 22.5 H 24.3 H INR 2.2 H 2.4 H APTT 49.9 H 58.4 H Sodium 147 H Potassium 4.1 Chloride 115 H Carbon Dioxide 15.0 L Anion Gap 17 H BUN 52 H Creatinine 3.4 H D Estim Creat Clear Calc 22.1 L eGFR 20 L BUN/Creatinine Ratio 15 Glucose 100 Calculated Osmolality 306 H Lactic Acid 2.7 H Calcium 10.0 Corrected Calcium 10.9 H Phosphorus 5.8 H Magnesium 2.5 Total Bilirubin 34.7 H* AST 73 H ALT 71 H Alkaline Phosphatase 142 H D Total Protein 5.6 L Albumin 2.9 L Globulin 2.7 Albumin/Globulin Ratio 1.1 L Triglycerides Cholesterol LDL Cholesterol, Calc HDL Cholesterol Cholesterol/HDL Ratio Beta-Hydroxybutyrate/Acetoacetate Vancomycin Trough Misc Test Result Platelets confirmed 05/24/24 08:34 WBC RBC Hgb Hct MCV MCH MCHC RDW Std Deviation Plt Count Neut % (Auto) Lymph % (Auto) [place] % (Auto) Eos % (Auto) Baso % (Auto) Neut # (Auto) Lymph # (Auto) [place] # (Auto) Eos # (Auto) Baso # (Auto) Immature Gran # (Auto) Absolute Nucleated RBC Immature Gran % Nucleated RBC % PT INR APTT Sodium Potassium Chloride Carbon Dioxide Anion Gap BUN Creatinine Estim Creat Clear Calc eGFR BUN/Creatinine Ratio Glucose Calculated Osmolality Lactic Acid 2.6 H Calcium Corrected Calcium Phosphorus Magnesium Total Bilirubin AST ALT Alkaline Phosphatase Total Protein Albumin Globulin Albumin/Globulin Ratio Triglycerides 112 Cholesterol 77 L LDL Cholesterol, Calc 50 HDL Cholesterol < 5 L Cholesterol/HDL Ratio 15.0 H Beta-Hydroxybutyrate/Acetoacetate 0.2 Vancomycin Trough 26.7 H* Misc Test Result ABG Interpretation ABG results: 05/15/24 05/15/24 05/15/24 08:45 14:25 16:08 ABG pH 7.31 L 7.04 L* D 7.22 L D ABG pCO2 20 L 58 H D 35 D ABG pO2 116 H 330 H D 63 L D ABG HCO3 10 L 16 L 14 L ABG O2 Saturation 98 99 H 89 L ABG Base Excess -15 L -15 L -13 L VBG pH VBG pCO2 VBG pO2 VBG Base Excess 05/15/24 05/16/24 05/16/24 19:03 04:05 05:05 ABG pH 7.27 L 7.43 D 7.48 H ABG pCO2 27 L 56 H D 23 L D ABG pO2 85 D 160 H D 191 H D ABG HCO3 12 L 37 H 17 L ABG O2 Saturation 96 101 H 100 H ABG Base Excess -13 L 11 H -5 L VBG pH VBG pCO2 VBG pO2 VBG Base Excess 05/16/24 05/16/24 05/16/24 11:34 14:20 18:35 ABG pH 7.49 H 7.52 H 7.55 H ABG pCO2 27 L 26 L 25 L ABG pO2 173 H 160 H 201 H D ABG HCO3 21 21 21 ABG O2 Saturation 100 H 100 H 100 H ABG Base Excess -2 -1 0 VBG pH VBG pCO2 VBG pO2 VBG Base Excess 05/16/24 05/17/24 05/19/24 21:53 11:34 05:05 ABG pH 7.55 H 7.54 H 7.44 D ABG pCO2 25 L 26 L 32 ABG pO2 206 H 177 H D 80 L D ABG HCO3 22 22 22 ABG O2 Saturation 100 H 100 H 97 ABG Base Excess 0 0 -2 VBG pH VBG pCO2 VBG pO2 VBG Base Excess 05/20/24 05/22/24 05/23/24 04:55 09:46 08:05 ABG pH 7.43 ABG pCO2 32 ABG pO2 102 D ABG HCO3 21 ABG O2 Saturation 99 H ABG Base Excess -3 VBG pH 7.36 7.42 VBG pCO2 25 L 24 L VBG pO2 120 H 58 D VBG Base Excess -10 L -8 L Quality Measures Quality Measures VTE prophylaxis Assessment & Plan Assessment Current Active Medications: Generic Name Dose Route Start Last Admin Trade Name Freq PRN Reason Stop Dose Admin Albuterol/Ipratropium 3 ml 05/20/24 15:53 Albuterol/Ipratropium (Duoneb) Rt Irina 3 Ml Nebu INH 06/19/24 15:52 Q6HRRT PRN SHORTNESS OF BREATH OR WHEEZE Cholestyramine Resin 1 pkt 05/18/24 21:00 05/24/24 08:07 Cholestyramine/Sucrose 1 Pkt Ea PO 06/17/24 20:59 Not Given BID SREE Dextrose 25 ml 05/15/24 01:22 Dextrose 50%-Water Inj 50 Ml Syringe IV 06/14/24 01:21 Q15MIN PRN BG 50-70 responsive npo pt Dextrose 50 ml 05/15/24 01:22 Dextrose 50%-Water Inj 50 Ml Syringe IV 06/14/24 01:21 Q15MIN PRN BG <50 OR BG <70 & pt unresponsive Glucagon 1 mg 05/15/24 01:22 Glucagon Inj 1 Mg Vial IM Q15MIN PRN BG <70, and no IV access Ceftriaxone Sodium/Dextrose 1 gm in 50 mls @ 100 mls/hr 05/22/24 07:50 05/24/24 09:58 Rocephin/D5w 1gm Iv Premix IV 05/29/24 07:49 100 mls/hr QDAY SREE Administration Dextrose/Lactated Ringer's 500 mls @ 100 mls/hr 05/24/24 08:21 D5-Lr IV 05/24/24 12:56 .Q5H ONE Albumin Human 25 gm in 100 mls @ 100 mls/hr 05/24/24 09:30 05/24/24 09:58 Albuminar-25 Ivpb IV 05/26/24 00:00 100 mls/hr TID SREE Administration Protocol Albumin Human 25 gm in 100 mls @ 100 mls/hr 05/26/24 09:00 Albuminar-25 Ivpb IV 05/29/24 08:59 QDAY [facility] Protocol Octreotide Acetate 1,000 mcg/ 102 mls @ 5.1 mls/hr 05/24/24 09:23 Sodium Chloride IV 05/29/24 09:23 .Q20H SREE Protocol 50 MCG/HR Multivitamins/Minerals 10 ml/ 2,010 mls @ 55 mls/hr 05/24/24 18:00 Amino Acids IV 05/25/24 17:59 .Q24H SREE Insulin Human Lispro 0 unit 05/20/24 17:30 05/24/24 08:04 Insulin Lispro (Admelog) 1 Unit/0.01 Ml Unit SC 06/19/24 17:29 Not Given ACHS SREE Protocol Lactulose 200 gm 05/23/24 14:00 05/24/24 05:07 Lactulose Syrup 10 Gm/15 Ml WA 06/22/24 13:59 200 gm TID SREE Administration Protocol Midodrine 10 mg 05/24/24 14:00 Midodrine 5 Mg Tablet PO 06/23/24 13:59 TID SREE Ondansetron HCl 4 mg 05/15/24 01:17 05/15/24 05:46 Ondansetron Inj 2 Mg/Ml Inj 2 Ml IV 06/14/24 01:16 4 mg Q6H PRN Administration NAUSEA OR VOMITING Protocol Pantoprazole Sodium 80 mg 05/15/24 21:00 05/24/24 09:57 Pantoprazole Inj 40 Mg Vial IVP 06/14/24 20:59 80 mg BID SREE Administration Rifaximin 550 mg 05/22/24 09:00 05/24/24 08:07 Rifaximin 550 Mg Tablet PO 05/29/24 08:59 Not Given BID SREE Simethicone 80 mg 05/22/24 18:00 05/24/24 08:04 Simethicone 80 Mg Chew PO 06/21/24 17:59 Not Given QID SREE Sodium Bicarbonate 650 mg 05/22/24 09:00 05/24/24 08:07 Sodium Bicarbonate 650 Mg Tablet PO 06/21/24 08:59 Not Given BID SREE Claudia Benjamin Villarreal is a 59-year-old male with PMHX of alcohol use disorder, esophageal varices s/p banding, hypertension, hyperlipidemia, DM2, HFpEF (EF 55 to 60%) and biliary dyskinesia who was admitted 05/15 after coming to ED with complaints of black starry stools and witnessed bloody emesis. On 05/15, patient had rapid response for large volume, dark-colored bloody stool and was upgraded to ICU for pressor support and mechanical ventilation for airway management. He has thus far been extubated and off pressors and downgraded to floors on 05/19 for further management. He has received a total of 8 units PRBC, 2 units FFP, and 2 units of platelets. Upon evaluation, patient is alert and responding to questions, and following commands. He does not have any complaints at this time, including abdominal pain, nausea, or vomiting. #Intra-abdominal hypertension #? Abdominal compartment syndrome with worsening renal function Concerns for intra-abdominal hypertension given findings of decreased UOP, worsening renal function, and increasing leukocytosis in setting of distended abdomen. S/p NG tube on LIS-with overall improvement in bladder pressures (initial pressure of 20 now 15) with improvement in UOP. NG tube output of approximately 300 cc of dark-colored blood with downtrending hemoglobin from 10.9 to 9.1. Renal function continues to decline with increasing creatinine from 2.3 to 3.4 and so nephrology was consulted. ? ICU consulted due to concern for intra-abdominal HTN in setting of progressively worsening kidney function ? Due to high risk of aspiration and severe GI bleed, patient was upgraded to ICU for closer monitoring ? NGT on LIS ? No rectal tube per GI recs ? Bladder pressure q4hr #Acute kidney injury secondary to ATN vs hepatorenal syndrome vs prerenal azotemia #Hypernatremia #Hypercalcemia #Hperphosphatemia Previously underwent albumin challenge during previos ICU stay and improved with albumin, suggesting prerenal etiology of JEANIE. ? Nephrology consulted, appreciate recommendations ? Midodrine 10 mg PO TID PRN ? Albumin 25 g IV TID ? Avoid nephrotoxic agents, renally dose medications #Anion gap metabolic acidosis #Lactic acidosis Lactate 2.7, HCO3 14. ? Sodium bicarbonate 650 mg PO BID #Acute decompensated cirrhosis #Esophageal varices status post band ligation #Hemorrhagic shock, resolved #Mild-moderate ascites Initial hemoglobin of 5.8 and received total of 8 units PRBC, 2 units FFP, and 2 units platelets. Underwent EGD on this admission that showed grade 2 varices that were banded as well as diffuse mucosal oozing in setting of hypertensive portal gastropathy with blood clots in proximal body of stomach. Attempted transfer for TIPS procedure but denied by multiple hospitals so transfer DC'd. Received 4 days octreotide drip but discontinued due to bradycardia and currently on Protonix 80 mg IV twice daily. Octreotide discontinued after 4 days due to bradycardia. ? GI following, appreciate recommendations ? Protonix 80 mg IV twice daily #Hepatic encephalopathy #Hyperammonemia ? Increased lactulose 20 g PO 3 times daily ? Titrate to 2-3 bowel movements ? Rifaximin 550 mg via NG BID #Cirrhosis secondary to EtOH #History of alcohol use disorder #Thrombocytopenia #Hypoalbuminemia #Transaminitis MELD Na score 31 -> 52.6% estmated 3-month mortality Child-Garcia score 11 (Child class C) -> 1-3 year life epectancy and 82% tamara- operative abdominal surgery mortality ? Continue to monitor ? Ceftriaxone 1 g IV daily for SBP prophylaxis #Streptococcus anginosus bacteremia Blood cultures 05/14: 2/2 bottles positive for Strep anginosus Blood culture 05/16: NGTD Vancomycin discontinued (05/21-05/23) ? Follow-up echo #Hypertonic hypernatremia, resolved Free water deficit of 1.5 L with goal sodium of 145, previously on 150 cc/h water flushes but NG tube has since been discontinued. Suspected to be due to significant GI losses while on lactulose. ? Continue with oral hydration or IVF if needed #? Seizures EEG on 05/19 obscured from artifact and will follow-up repeat EEG. ? Neurology consulted, appreciate recommendations ? Repeat EEG showed normal study. #Hyperbilirubinemia ? Cholestyramine 1 packet PO BID #HFpEF Hold on diuresis for now as patient does not appear to be volume overload. #Type 2 diabetes mellitus A1c 6.7% on 04/2024. ? SSI ? Hypoglycemic protocol in place Hospital management: Disposition: upgraded to ICU for closer monitoring Fluids: none Tubes: NGT on LIS Diet: NPO Lines: PIV DVT prophylaxis: SCDs GI prophylaxis: pantoprazole 80 mg IV BID Sanchez: placed CODE STATUS: full code ----- Plan discussed with attending physician Dr. Cowart and senior resident physician Dr. Kenneth Simons MD PGY-1 Internal Medicine Attending Provider Attestation/Addendum I have discussed and was present for the essential components of the history, physical examination, diagnosis, and treatment plan with the resident. I agree with the patient's care as documented by the resident and amended herein by me. Nick Cowart, DO. Patient seen and evaluated this AM. Patient presently in the ICU for closer monitoring, they will take over care today due to the patient's worsening condition. Palliative care discussions may need to take place however will defer to the ICU team at this time. Although this document has been carefully reviewed, there may still be some phonetic and other typographical errors. These errors are purely grammatical due to imperfections in the software program and should not be construed in any way to compromise the substance of the patient's medical care during this visit.
--- NOTE | 2024-05-24 11:58 | XR_ITS ---
Examination: AP chest single view TECHNIQUE: AP portable sitting chest single view Exam date and time: May 24, 2024 1113 hours Comparison May 24, 2024 INDICATIONS: Post orogastric tube placement FINDINGS: Orogastric tube in stomach satisfactory position Mild enlargement left ventricle Mild bibasilar pneumonia IMPRESSION: Mild bibasilar pneumonia
[2024-05-24] MEDS: OCTREOTIDE ACET INJ 1,000 MCG in SODIUM CHLORIDE 0.9% 100 ML 5.1 MCG IV (11:59)
[2024-05-24 12:03] LABS: Lactic Acid, 3 HR 2.2 mMol/L (0.4-2.0)
[2024-05-24] MEDS: DEXTROSE 5%-LACTATED RINGERS 500 ML 100 ML IV (12:09)
[2024-05-24 12:14] LABS: Hematocrit 25.5 % (41.0-53.0)
[2024-05-24 12:26] LABS: Hemoglobin 8.5 g/dL (13.5-16.0)
--- NOTE | 2024-05-24 13:38 | PD.RESCONSUL ---
HPI Data of Consult Consult date: 05/24/24 Requesting Physician: Demetri Cowart DO Admitting Provider: Ricky Collins MD Attending Provider: Demetri Cowart DO Primary Care Provider: Gamal Bonilla MD Consult Narrative Reason for consult: JEANIE History of present illness: Mr. Villarreal is a 59-year-old male with past medical history of alcohol use disorder, esophageal varices s/p banding, hypertension, hyperlipidemia, diabetes mellitus, HFpEF, biliary dyskinesia admitted to the hospital on 05/15/2024 with complaints of black tarry stools and bloody emesis. Initially patient was started on octreotide and Protonix drip. Later patient was transferred to the ICU on the same day and patient received multiple units of PRBC transfusion, platelet transfusion following which NG tube was placed and EGD was done By Dr. Liu for which patient was intubated as patient is clenching his mouth and not able to open his jaw. EGD done at that time showed diffuse blood oozing from everywhere. Later tried to transfer to higher centers for TIPS but patient was not accepted to higher care center. During ICU stay, patient developed JEANIE for which patient received albumin infusions, octreotide following which JEANIE resolved which could be due to prerenal from hemorrhagic shock. Patient was later extubated and downgraded to floors for further management. Patient was found to have elevated blood pressure of 20 for which primary team suspected abdominal compartment syndrome due to ileus and patient was transferred to ICU Nephrology was consulted for worsening renal function 05/24/2024 Patient is seen and examined at bedside in the ICU. Uzbek-speaking Vitals are stable. On physical examination, noted severe abdominal distention with no peripheral edema noted Labs showed WBC 19, Hb 8.5, platelets 50, INR 2.4, sodium 140 [place], chloride 115, bicarb 15, anion gap 17, BUN 52, creatinine 3.4, lactate 2.2, total bilirubin 34.7 Noted to have a urine output of 250 mL since this morning, total 750 mL in last 24 hours Recommended to start albumin-1 g/kg and continue midodrine for 48 hours Patient appears to be intravascularly volume depleted as patient is on NG tube suction and rectal tube on lactulose cc:: cc: Demetri Cowart DO Review of Systems Review of Systems Systems Reviewed: All systems reviewed, normal except as documented Past Medical History Past Medical History CARDIAC: Positive Hypercholesterolemia and Hypertension Exam Vital Signs Temp Pulse Resp BP Pulse Ox O2 Del Method O2 Flow Rate 96.8 F 74 15 131/66 H 94 L Room Air 2 05/24/24 12:00 05/24/24 13:00 05/24/24 13:00 05/24/24 13:00 05/24/24 13:00 05/24/24 08:00 05/22/24 00:00 FiO2 30 05/22/24 00:00 Narrative Exam General: Awake. NG tube insitu HEENT: Normocephalic, atraumatic, mucous membranes moist. Heart: Regular rate and rhythm, no murmurs. Lungs: Clear to auscultation with no wheezing or crackles. Abdomen: Soft, severely distended, nontender, decreased bowel sounds. ?No guarding or rebound tenderness. Neurologic: Alert and oriented x3, no gross neurological deficit, and patient able to move all 4 extremities. Extremities: No edema. Skin: No rash or ecchymoses. Results Labs 05/25/24 05:10 05/25/24 00:34 Labs: Short CBC 05/24/24 05/24/24 Range/Units 04:57 11:55 WBC 19.0 H D (3.8-10.6) Thou/mm3 Hgb 9.1 L 8.5 L (13.5-16.0) g/dL Hct 26.4 L 25.5 L (41.0-53.0) % Plt Count 50 L D (140-440) Thou/mm3 BMP 05/24/24 04:57 Sodium 147 H Potassium 4.1 Chloride 115 H Carbon Dioxide 15.0 L BUN 52 H Creatinine 3.4 H D Glucose 100 Calcium 10.0 Liver Function 05/24/24 Range/Units 04:57 Total Bilirubin 34.7 H* (0.3-1.2) mg/dL AST 73 H (0-34) U/L ALT 71 H (10-49) U/L Alkaline Phosphatase 142 H D (46-116) U/L Albumin 2.9 L (3.5-5.0) gm/dL ABG Interpretation ABG results: 05/15/24 05/15/24 05/15/24 08:45 14:25 16:08 ABG pH 7.31 L 7.04 L* D 7.22 L D ABG pCO2 20 L 58 H D 35 D ABG pO2 116 H 330 H D 63 L D ABG HCO3 10 L 16 L 14 L ABG O2 Saturation 98 99 H 89 L ABG Base Excess -15 L -15 L -13 L VBG pH VBG pCO2 VBG pO2 VBG Base Excess 05/15/24 05/16/24 05/16/24 19:03 04:05 05:05 ABG pH 7.27 L 7.43 D 7.48 H ABG pCO2 27 L 56 H D 23 L D ABG pO2 85 D 160 H D 191 H D ABG HCO3 12 L 37 H 17 L ABG O2 Saturation 96 101 H 100 H ABG Base Excess -13 L 11 H -5 L VBG pH VBG pCO2 VBG pO2 VBG Base Excess 05/16/24 05/16/24 05/16/24 11:34 14:20 18:35 ABG pH 7.49 H 7.52 H 7.55 H ABG pCO2 27 L 26 L 25 L ABG pO2 173 H 160 H 201 H D ABG HCO3 21 21 21 ABG O2 Saturation 100 H 100 H 100 H ABG Base Excess -2 -1 0 VBG pH VBG pCO2 VBG pO2 VBG Base Excess 05/16/24 05/17/24 05/19/24 21:53 11:34 05:05 ABG pH 7.55 H 7.54 H 7.44 D ABG pCO2 25 L 26 L 32 ABG pO2 206 H 177 H D 80 L D ABG HCO3 22 22 22 ABG O2 Saturation 100 H 100 H 97 ABG Base Excess 0 0 -2 VBG pH VBG pCO2 VBG pO2 VBG Base Excess 05/20/24 05/22/24 05/23/24 04:55 09:46 08:05 ABG pH 7.43 ABG pCO2 32 ABG pO2 102 D ABG HCO3 21 ABG O2 Saturation 99 H ABG Base Excess -3 VBG pH 7.36 7.42 VBG pCO2 25 L 24 L VBG pO2 120 H 58 D VBG Base Excess -10 L -8 L Quality Measures Quality Measures VTE prophylaxis Medications Home Medications and Allergies Home Medications ?Medication ?Instructions ?Recorded ?Confirmed ?Type No Known Home Medications 12/31/17 12/31/17 History Allergies Allergy/AdvReac Type Severity Reaction Status Date / Time No Known Allergies Allergy Verified 05/15/24 06:35 Visit Medications Albuterol/Ipratropium (Albuterol/Ipratropium (Duoneb) Rt Irina 3 Ml Nebu) 3 ml INH Q6HRRT PRN PRN Reason: SHORTNESS OF BREATH OR WHEEZE Stop: 06/19/24 15:52 Cholestyramine Resin (Cholestyramine/Sucrose 1 Pkt Ea) 1 pkt PO BID SREE Stop: 06/17/24 20:59 Last Admin: 05/24/24 08:07 Dose: Not Given Dextrose (Dextrose 50%-Water Inj 50 Ml Syringe) 25 ml IV Q15MIN PRN PRN Reason: BG 50-70 responsive npo pt Stop: 06/14/24 01:21 Dextrose (Dextrose 50%-Water Inj 50 Ml Syringe) 50 ml IV Q15MIN PRN PRN Reason: BG <50 OR BG <70 & pt unresponsive Stop: 06/14/24 01:21 Glucagon (Glucagon Inj 1 Mg Vial) 1 mg IM Q15MIN PRN PRN Reason: BG <70, and no IV access Albumin Human (Albuminar-25 Ivpb) 25 gm in 100 mls @ 100 mls/hr IV TID SREE; Protocol Stop: 05/26/24 00:00 Last Admin: 05/24/24 09:58 Dose: 100 mls/hr Albumin Human (Albuminar-25 Ivpb) 25 gm in 100 mls @ 100 mls/hr IV QDAY [facility]; Protocol Stop: 05/29/24 08:59 Octreotide Acetate 1,000 mcg/ (Sodium Chloride) 102 mls @ 5.1 mls/hr IV .Q20H [facility]; Protocol Stop: 05/29/24 09:23 Last Admin: 05/24/24 11:59 Dose: 50 mcg/hr, 5.1 mls/hr Multivitamins/Minerals 10 ml/ (Amino Acids) 2,010 mls @ 55 mls/hr IV .Q24H [facility] Stop: 05/25/24 17:59 Ceftriaxone Sodium 2 gm/ (Sodium Chloride) 50 mls @ 100 mls/hr IV QDAY [facility] Stop: 06/01/24 08:59 Insulin Human Lispro (Insulin Lispro (Admelog) 1 Unit/0.01 Ml Unit) 0 unit SC ACHS [facility]; Protocol Stop: 06/19/24 17:29 Last Admin: 05/24/24 12:03 Dose: Not Given Lactulose (Lactulose Syrup 10 Gm/15 Ml) 200 gm AR TID [facility]; Protocol Stop: 06/22/24 13:59 Last Admin: 05/24/24 05:07 Dose: 200 gm Midodrine (Midodrine 5 Mg Tablet) 10 mg PO TID [facility] Stop: 06/23/24 13:59 Ondansetron HCl (Ondansetron Inj 2 Mg/Ml Inj 2 Ml) 4 mg IV Q6H PRN; Protocol PRN Reason: NAUSEA OR VOMITING Stop: 06/14/24 01:16 Last Admin: 05/15/24 05:46 Dose: 4 mg Pantoprazole Sodium (Pantoprazole Inj 40 Mg Vial) 80 mg IVP BID [facility] Stop: 06/14/24 20:59 Last Admin: 05/24/24 09:57 Dose: 80 mg Rifaximin (Rifaximin 550 Mg Tablet) 550 mg PO BID [facility] Stop: 05/29/24 08:59 Last Admin: 05/24/24 08:07 Dose: Not Given Simethicone (Simethicone 80 Mg Chew) 80 mg PO QID [facility] Stop: 06/21/24 17:59 Last Admin: 05/24/24 12:11 Dose: Not Given Sodium Bicarbonate (Sodium Bicarbonate 650 Mg Tablet) 650 mg PO BID [facility] Stop: 06/21/24 08:59 Last Admin: 05/24/24 08:07 Dose: Not Given Discontinued Medications Acetaminophen (Acetaminophen Supp 650 Mg Supp) 650 mg AR Q6HR PRN PRN Reason: pain and Fever > 100.4 Stop: 06/14/24 01:16 Albuterol/Ipratropium (Albuterol/Ipratropium (Duoneb) Rt Irina 3 Ml Nebu) 3 ml INH X1 ONE Stop: 05/20/24 15:54 Last Admin: 05/20/24 16:03 Dose: 3 ml Clonidine (Clonidine Hcl 0.1 Mg Tablet) 0.1 mg PO X1 ONE Stop: 05/18/24 19:08 Last Admin: 05/18/24 19:28 Dose: 0.1 mg Clonidine (Clonidine Hcl 0.1 Mg Tablet) 0.1 mg PO X1 ONE Stop: 05/19/24 00:10 Last Admin: 05/19/24 00:42 Dose: 0.1 mg Fentanyl Citrate (Fentanyl Cit Inj 50 Mcg/Ml Amp 2ml) 25 mcg IV Q2M PRN PRN Reason: MODERATE SEDATION Stop: 05/15/24 14:01 Fentanyl Citrate (Fentanyl Cit Inj 50 Mcg/Ml Amp 2ml) 50 mcg IV X1 ONE Stop: 05/15/24 12:26 Last Admin: 05/15/24 12:25 Dose: 50 mcg Fentanyl Citrate (Fentanyl Cit Inj 50 Mcg/Ml Amp 2ml) 50 mcg IV Q2M PRN PRN Reason: MODERATE SEDATION Stop: 05/17/24 20:40 Hydralazine HCl (Hydralazine Inj 20 Mg/Ml Vial) 10 mg IV X1 ONE Stop: 05/18/24 12:13 Last Admin: 05/18/24 12:20 Dose: 10 mg Hydralazine HCl (Hydralazine Inj 20 Mg/Ml Vial) 10 mg IV X1 ONE Stop: 05/18/24 12:53 Last Admin: 05/18/24 13:07 Dose: 10 mg Hydralazine HCl (Hydralazine Hcl 25 Mg Tablet) 25 mg PO TID PRN PRN Reason: hypertension Stop: 06/17/24 13:59 Last Admin: 05/18/24 15:07 Dose: 25 mg Hydralazine HCl (Hydralazine Hcl 25 Mg Tablet) 25 mg PO TID [facility] Stop: 06/17/24 21:59 Last Admin: 05/19/24 13:17 Dose: Not Given Ceftriaxone Sodium 1,000 mg/ (Sodium Chloride) 50 mls @ 100 mls/hr IV X1 ONE Stop: 05/14/24 22:50 Last Infusion: 05/14/24 23:05 Dose: Infused Octreotide Acetate 1,000 mcg/ (Sodium Chloride) 102 mls @ 5.1 mls/hr IV .Q20H [facility]; Protocol Stop: 05/19/24 22:22 Last Admin: 05/23/24 15:38 Dose: Not Given Octreotide Acetate 1,000 mcg/ (Sodium Chloride) 102 mls @ 5.1 mls/hr IV .Q20H [facility]; Protocol Stop: 05/15/24 18:29 Last Infusion: 05/15/24 17:45 Dose: 0 mcg/hr, 0 mls/hr Ceftriaxone Sodium 1,000 mg/ (Sodium Chloride) 50 mls @ 100 mls/hr IV QDAY [facility] Stop: 05/22/24 08:59 Albumin Human (Albuminar-25 Ivpb) 25 gm in 100 mls @ 100 mls/hr IV X1 ONE Stop: 05/15/24 02:25 Last Infusion: 05/15/24 02:54 Dose: Infused Albumin Human (Albuminar-25 Ivpb) 25 gm in 100 mls @ 100 mls/hr IV X1 ONE Stop: 05/15/24 02:26 Last Infusion: 05/15/24 04:08 Dose: Infused Albumin Human (Albuminar-25 Ivpb) 25 gm in 100 mls @ 100 mls/hr IV X1 ONE Stop: 05/15/24 02:26 Last Infusion: 05/15/24 06:00 Dose: Infused Albumin Human (Albuminar-25 Ivpb) 25 gm in 100 mls @ 100 mls/hr IV QDAY [facility] Stop: 05/18/24 07:48 Last Admin: 05/17/24 10:03 Dose: 100 mls/hr Lactated Ringer's (Lactated Ringers) 1,000 mls @ 999 mls/hr IV .Q1H1M ONE Stop: 05/15/24 09:39 Last Infusion: 05/15/24 11:01 Dose: Infused Lactated Ringer's (Lactated Ringers) 1,000 mls @ 999 mls/hr IV .Q1H1M ONE Stop: 05/15/24 10:18 Last Admin: 05/15/24 09:51 Dose: Not Given Lactated Ringer's (Lactated Ringers) 1,000 mls @ 999 mls/hr IV .Q1H1M ONE Stop: 05/15/24 10:19 Last Admin: 05/15/24 09:51 Dose: Not Given Piperacillin/Tazobactam/Dextrose (Zosyn) 3.375 gm in 50 mls @ 12.5 mls/hr IV Q8HR [facility]; Protocol Stop: 05/22/24 13:59 Last Admin: 05/18/24 13:07 Dose: 12.5 mls/hr Piperacillin/Tazobactam/Dextrose (Zosyn) 3.375 gm in 50 mls @ 100 mls/hr IV X1 ONE Stop: 05/15/24 10:14 Last Infusion: 05/15/24 16:00 Dose: Infused Lactated Ringer's (Lactated Ringers) 1,000 mls @ 999 mls/hr IV .Q1H1M ONE Stop: 05/15/24 11:30 Last Infusion: 05/15/24 12:00 Dose: 0 mls/hr Calcium Gluconate/Sodium Chloride (Calcium Gluc/Ns 1000mg Ivpb) 1,000 mg in 50 mls @ 50 mls/hr IV X1 ONE Stop: 05/15/24 12:27 Last Infusion: 05/15/24 13:00 Dose: Infused Dexmedetomidine/Sodium Chloride (Precedex Ivpb) 200 mcg in 50 mls @ 3.763 mls/hr IV .[id number] PRN; Protocol PRN Reason: Per PROTOCOL Stop: 06/14/24 12:25 Last Titration: 05/19/24 07:00 Dose: 0 mcg/kg/hr, 0 mls/hr Vancomycin/Sodium Chloride (Vancomycin/Ns 1 Gm Ivpb) 200 mls @ 120 mls/hr IV X1 ONE Stop: 05/15/24 19:39 Last Admin: 05/15/24 17:51 Dose: 120 mls/hr Norepinephrine/Dextrose (Levophed In D5w 8mg/250ml) 8 mg in 250 mls @ 6.966 mls/hr IV .Q24H PRN; Protocol PRN Reason: PER PROTOCOL Stop: 06/14/24 20:24 Last Titration: 05/17/24 16:50 Dose: 0 mcg/kg/min, 0 mls/hr Lactated Ringer's (Lactated Ringers) 1,000 mls @ 999 mls/hr IV .Q1H1M ONE Stop: 05/15/24 22:13 Last Infusion: 05/15/24 21:53 Dose: 0 mls/hr Vancomycin/Sodium Chloride (Vancomycin/Ns 500 Mg Ivpb) 100 mls @ 120 mls/hr IV X1 ONE Stop: 05/16/24 12:49 Last Admin: 05/16/24 13:32 Dose: 120 mls/hr Calcium Gluconate/Sodium Chloride (Calcium Gluc/Ns 1000mg Ivpb) 1,000 mg in 50 mls @ 50 mls/hr IV X1 ONE Stop: 05/16/24 15:19 Last Infusion: 05/16/24 17:51 Dose: Infused Vancomycin/Sodium Chloride (Vancomycin/Ns 500 Mg Ivpb) 100 mls @ 120 mls/hr IV X1 ONE Stop: 05/17/24 10:49 Last Admin: 05/17/24 10:03 Dose: 120 mls/hr Potassium Chloride (Kcl Ivpb) 10 meq in 100 mls @ 100 mls/hr IV Q1H [facility] Stop: 05/17/24 13:10 Last Admin: 05/23/24 15:44 Dose: Not Given Potassium Chloride (Kcl Ivpb) 10 meq in 100 mls @ 100 mls/hr IV Q1H [facility] Stop: 05/17/24 16:25 Last Admin: 05/17/24 14:44 Dose: 100 mls/hr Albumin Human (Albuminar-25 Ivpb) 12.5 gm in 50 mls @ 50 mls/hr IV X1 ONE Stop: 05/17/24 11:27 Last Admin: 05/17/24 13:23 Dose: 50 mls/hr Octreotide Acetate 1,000 mcg/ (Sodium Chloride) 102 mls @ 5.1 mls/hr IV .Q20H [facility]; Protocol Stop: 05/19/24 22:22 Last Admin: 05/19/24 09:37 Dose: Not Given Vancomycin/Sodium Chloride (Vancomycin/Ns 750 Mg Ivpb) 750 mg in 150 mls @ 120 mls/hr IV Q24H [facility]; Protocol Stop: 05/25/24 09:59 Last Admin: 05/23/24 15:45 Dose: Not Given Potassium Chloride (Kcl Ivpb) 20 meq in 100 mls @ 50 mls/hr IV Q2H [facility] Stop: 05/18/24 16:38 Last Admin: 05/18/24 16:24 Dose: 50 mls/hr Potassium Chloride (Kcl Ivpb) 10 meq in 100 mls @ 100 mls/hr IV Q1H [facility] Stop: 05/19/24 11:19 Last Admin: 05/19/24 12:38 Dose: Not Given Potassium Chloride (Kcl Ivpb) 20 meq in 100 mls @ 50 mls/hr IV Q2H [facility] Stop: 05/19/24 13:53 Last Infusion: 05/19/24 13:12 Dose: Infused Vancomycin/Sodium Chloride (Vancomycin/Ns 1 Gm Ivpb) 200 mls @ 120 mls/hr IV QDAY@1000 [facility] Stop: 05/28/24 10:29 Last Admin: 05/22/24 12:23 Dose: 120 mls/hr Ceftriaxone Sodium/Dextrose (Rocephin/D5w 1gm Iv Premix) 1 gm in 50 mls @ 100 mls/hr IV QDAY [facility] Stop: 05/29/24 07:49 Last Admin: 05/24/24 09:58 Dose: 100 mls/hr Lactated Ringer's (Lactated Ringers) 1,000 mls @ 250 mls/hr IV .Q4H ONE Stop: 05/22/24 11:56 Last Admin: 05/22/24 09:05 Dose: 250 mls/hr Vancomycin/Sodium Chloride (Vancomycin/Ns 500 Mg Ivpb) 100 mls @ 120 mls/hr IV X1 ONE Stop: 05/23/24 10:49 Last Admin: 05/23/24 11:00 Dose: 120 mls/hr Albumin Human (Albuminar-25 Ivpb) 25 gm in 100 mls @ 100 mls/hr IV BID [facility] Stop: 05/26/24 15:54 Last Admin: 05/24/24 10:36 Dose: Not Given Dextrose/Lactated Ringer's (D5-Lr) 500 mls @ 999 mls/hr IV .Q31M ONE Stop: 05/24/24 08:27 Last Admin: 05/24/24 10:36 Dose: Not Given Dextrose/Lactated Ringer's (D5-Lr) 500 mls @ 100 mls/hr IV .Q5H ONE Stop: 05/24/24 12:56 Last Admin: 05/24/24 12:09 Dose: 100 mls/hr Albumin Human (Albuminar-25 Ivpb) 25 gm in 100 mls @ 100 mls/hr IV TID [facility] Stop: 05/26/24 00:00 Insulin Human Lispro (Insulin Lispro (Admelog) 1 Unit/0.01 Ml Unit) 0 unit SC Q6HR [facility]; Protocol Stop: 06/14/24 05:59 Last Admin: 05/20/24 11:40 Dose: Not Given Labetalol HCl (Labetalol Inj 5 Mg/Ml Vial 20 Ml) 10 mg IVP X1 ONE Stop: 05/18/24 10:53 Last Admin: 05/18/24 11:00 Dose: 10 mg Labetalol HCl (Labetalol Inj 5 Mg/Ml Vial 20 Ml) 10 mg IVP X1 ONE Stop: 05/18/24 11:49 Last Admin: 05/18/24 11:52 Dose: 10 mg Labetalol HCl (Labetalol Inj 5 Mg/Ml Vial 20 Ml) 10 mg IVP X1 ONE Stop: 05/18/24 16:16 Last Admin: 05/18/24 16:23 Dose: 10 mg Lactulose (Lactulose Syrup 20 Gm/30 Ml Udc) 20 gm AR TID [facility]; Protocol Stop: 06/14/24 07:59 Last Admin: 05/15/24 15:10 Dose: Not Given Lactulose (Lactulose Syrup 20 Gm/30 Ml Udc) 30 gm NG TID [facility]; Protocol Stop: 06/15/24 13:59 Lactulose (Lactulose Syrup 20 Gm/30 Ml Udc) 30 gm NG TID [facility]; Protocol Stop: 06/15/24 13:59 Last Admin: 05/18/24 05:02 Dose: 30 gm Lactulose (Lactulose Syrup 20 Gm/30 Ml Udc) 20 gm NG TID [facility]; Protocol Stop: 06/17/24 13:59 Last Admin: 05/19/24 13:15 Dose: 20 gm Lactulose (Lactulose Syrup 20 Gm/30 Ml Udc) 20 gm NG BID [facility]; Protocol Stop: 06/18/24 20:59 Last Admin: 05/21/24 08:14 Dose: 20 gm Lactulose (Lactulose Syrup 20 Gm/30 Ml Udc) 20 gm NG TID [facility]; Protocol Stop: 06/20/24 13:59 Last Admin: 05/21/24 21:59 Dose: 20 gm Lactulose (Lactulose Syrup 20 Gm/30 Ml Udc) 20 gm PO TID [facility]; Protocol Stop: 06/21/24 05:59 Last Admin: 05/23/24 05:22 Dose: 20 gm Lorazepam (Lorazepam 2 Mg/Ml Vial) 2 mg IVP X1 ONE Stop: 05/15/24 12:26 Last Admin: 05/15/24 12:25 Dose: 2 mg Metoclopramide HCl (Metoclopramide Inj 5 Mg/Ml Vial 2 Ml) 10 mg IVP X1 ONE; Protocol Stop: 05/14/24 22:23 Last Admin: 05/14/24 22:30 Dose: 10 mg Midazolam HCl (Midazolam Inj 1 Mg/Ml Vial 2 Ml) 2 mg IV Q2M PRN PRN Reason: Moderate Sedation Stop: 05/15/24 14:01 Midazolam HCl (Midazolam Inj 1 Mg/Ml Vial 2 Ml) 2 mg IV Q2M PRN PRN Reason: Moderate Sedation Stop: 05/17/24 20:40 Midazolam HCl (Midazolam Inj 1 Mg/Ml Vial 2 Ml) 2 mg IV X1 ONE Stop: 05/17/24 21:11 Last Admin: 05/17/24 21:15 Dose: 2 mg Midodrine (Midodrine 5 Mg Tablet) 5 mg PO TID PRN PRN Reason: HYPOTENSION Stop: 06/22/24 16:14 Midodrine (Midodrine 5 Mg Tablet) 10 mg PO TID [facility] Stop: 06/23/24 13:59 Octreotide Acetate (Octreotide Acet Inj 50 Mcg/Ml Vial) 50 mcg IV X1 ONE Stop: 05/14/24 21:32 Last Admin: 05/14/24 22:14 Dose: 50 mcg Pantoprazole Sodium (Pantoprazole Inj 40 Mg Vial) 80 mg IV X1 ONE Stop: 05/14/24 21:32 Last Admin: 05/14/24 22:12 Dose: 80 mg Pantoprazole Sodium (Pantoprazole Inj 40 Mg Vial) 40 mg IVP BID [facility] Stop: 06/14/24 08:59 Pantoprazole Sodium (Pantoprazole Inj 40 Mg Vial) 40 mg IV X1 ONE Stop: 05/15/24 09:36 Last Admin: 05/15/24 09:53 Dose: 40 mg Pharmacy Consult (Vancomycin Pharmacy To Dose 1 Each Each) 1 each IV QDAY PRN PRN Reason: CONSULT Stop: 06/14/24 17:29 Phytonadione (Phytonadione Inj 10 Mg/Ml Amp) 10 mg IM X1 ONE Stop: 05/15/24 09:22 Last Admin: 05/15/24 13:03 Dose: Not Given Potassium Chloride (Potassium Chloride 20 Meq Tabcr) 20 meq PO X1 ONE Stop: 05/17/24 15:01 Last Admin: 05/17/24 17:24 Dose: 20 meq Potassium Chloride (Potassium Chloride 20 Meq Tabcr) 40 meq PO X1 ONE Stop: 05/17/24 12:46 Last Admin: 05/17/24 13:06 Dose: 40 meq Potassium Chloride (Potassium Chloride 10% 20 Meq/15 Ml Udc) 40 meq PO X1 ONE Stop: 05/21/24 08:16 Last Admin: 05/21/24 08:17 Dose: 40 meq Rifaximin (Rifaximin 550 Mg Tablet) 550 mg NG BID [facility] Stop: 05/23/24 10:44 Last Admin: 05/21/24 21:58 Dose: 550 mg Rocuronium [place] (Rocuronium Inj 10 Mg/Ml Vial 10 Ml) 70 mg IV X1 ONE Stop: 05/15/24 12:26 Last Admin: 05/15/24 12:25 Dose: 70 mg Sodium Bicarbonate (Sodium Bicarb Inj 8.4% 1 Meq/Ml 50 Ml Vial) 50 meq IV X1 ONE Stop: 05/15/24 07:41 Last Admin: 05/15/24 08:40 Dose: 50 meq Sodium Bicarbonate (Sodium Bicarb Inj 8.4% 1 Meq/Ml 50 Ml Vial) 50 meq IV X1 ONE Stop: 05/15/24 07:41 Last Admin: 05/15/24 08:42 Dose: 50 meq Sodium Bicarbonate (Sodium Bicarb Inj 8.4% 1 Meq/Ml 50 Ml Vial) 50 meq IV X1 ONE Stop: 05/15/24 09:26 Last Admin: 05/15/24 09:40 Dose: 50 meq Sodium Bicarbonate (Sodium Bicarb Inj 8.4% 1 Meq/Ml 50 Ml Vial) 50 meq IV X1 ONE Stop: 05/15/24 14:39 Assessment & Plan Plan A 59-year-old male with past medical history of alcohol use disorder, esophageal varices s/p banding, hypertension, hyperlipidemia, diabetes mellitus, HFpEF, biliary dyskinesia admitted to the hospital on 05/15/2024 with complaints of black tarry stools and bloody emesis and consulted for JEANIE # Acute kidney injury Likely prerenal JEANIE, ATN from GI losses versus HRS in the setting of decompensated liver disease -Patient is admitted to the hospital with decompensated liver disease with variceal bleeding -Patient developed JEANIE at the time of admission which resolved with IV albumin and octreotide -Patient was downgraded to floors but as the patient is having severe abdominal distention patient was upgraded to ICU with the suspicion of abdominal compartment syndrome from ileus -Patient found to have worsening renal functions with uptrending creatinine from 05/22/2024, Cr 1.4> 3, Cr 2.3 > 324, Cr 3.4 -Patient found to have adequate urine output as of 05/24/2024 -renal ultrasound showed bilateral renal parenchymal disease who Plan -Recommended to give albumin 1 g/kg and continue midodrine for 48 hours -Received 1000 mL of D5 -Replete intravascular volume as needed -urine electrolytes are ordered -Pending endoscopy later in the day by Dr. Liu -Avoid nephrotoxic medications and renally dose medications -Monitor blood pressures and strict urine input/output # Hypernatremia, hyperchloremia Likely from the intravascular dehydration -As of 05/24/2024, sodium is 147, chloride 115 Plan -Patient received D5, 1000 mL -Recommended to replete intravascular volume depending upon the clinical condition -Continue albumin infusions -Monitor input and output -Continue to monitor electrolytes # High anion gap metabolic acidosis # Lactic acidosis Likely due to combined intravascular dehydration, GI losses and JEANIE. -Started on sodium bicarbonate tablets 650 Mg p.o. twice daily # Hyperphosphatemia -Phosphorus is 5.8 as of 05/24/2024 -Likely due to JEANIE, monitor phosphorus levels #mixed hypovolemic(class 3 hemorrhagic shock) +septic shock-resolved #History of hypertension #History of hyperlipidemia #HFpEF 55 to 60% #Acute GI bleed #History of grade 3 esophageal varices status post banding #History of alcohol use disorder #Cirrhosis #Acute on chronic liver failure #Hyperbilirubinemia #Hyperammonemia #Hypoalbuminemia #Ascites #Abdominal distention -Rest of the medical conditions to be treated as per ICU team Thank you for allowing us to involved in the care of the patient Patient plan of care was discussed with the attending physician, Dr. Michelle Stack, PGY1 Attending Provider Attestation/Addendum Patient seen and examined with resident physician Dr. Kunz. Note reviewed, agree with findings and recommendations. Patient currently seen in ICU. NG tube noted. Patient alert and awake although very weak. He had a prolonged hospital course. Worsening decompensated liver cirrhosis with GI blled from varices, significant elevation in bilirubin, hepatic encephalopathy, hypotension, ascites, hypoalbuminemia, anemia, thrombocytopenia and now with elevated creatinine. Patient clinically looks rather dehydrated. Agree with fluids, albumin and midodrine. Check renal ultrasound, urine lytes. If no improvement despite volume resuscitation-then we can make a diagnosis of HRS. No family around. If HRS-prognosis remains poor. Plan of care discussed with ICU team. Thank you Dr. Gonzalez for allowing me to participate in the care of Mr. Villarreal.
[2024-05-24] MEDS: FAT EMULSIONS 20% IV 500 ML 32 ML IV (18:18)
[2024-05-24] MEDS: MULTIVITAMIN INJ 10 ML in AMINO ACIDS 4.25 %/D5W 2,000 ML 55 ML IV (18:18)
[2024-05-24 18:41] LABS: Albumin, Serum 3.3 gm/dL (3.5-5.0); Anion Gap 17 (7-16); BUN/Creatinine Ratio 18 Ratio (12-20); Blood Urea Nitrogen 56 mg/dL (9-23); Calcium (Corrected) 10.6 mg/dL (8.5-10.1); Carbon Dioxide 15.3 mMol/L (20.0-31.0); Chloride 116 mMol/L (98-107); Creatinine (Component) 3.2 mg/dL (0.6-1.3); Estimated Creatinine Clearance 23.5 mL/min (>60); Glucose 150 mg/dL (74-106); Osmolality,Calculated 312 (275-295); Phosphorous 5.8 mg/dL (2.4-5.1); Sodium 148 mMol/L (136-145); eGFR 21 See Note
--- NOTE | 2024-05-24 23:56 | ESPR_ITS ---
Documentation for date of: 05/24/24 Subjective Subjective Interval history: Patient was seen in ICU today. No complaints reported overnight Exam - Neurology Vital Signs Temp Pulse Resp BP Pulse Ox O2 Del Method O2 Flow Rate 96.7 F L 62 16 120/62 93 L Room Air 3 05/24/24 20:00 05/24/24 23:00 05/24/24 23:00 05/24/24 23:00 05/24/24 23:00 05/24/24 20:00 05/24/24 20:50 FiO2 30 05/22/24 00:00 Narrative Exam GENERAL APPEARANCE: Well hydrated, well-nourished in no acute distress. HEENT: Normocephalic, atraumatic, extraocular movements intact. Pupils: Equal reacting to light. NECK: Supple, no JVD or bruits. CARDIOVASULAR: Heart: S1, S2 heard, regular without S3-S4 or murmur no rubs or gallops. LUNGS/CHEST: Clear to auscultation bilaterally. No rails, rhonchi, or wheezing. Normal inspection. ABDOMEN: Soft, nontender, with normal bowel sounds. No pulsatile masses. No rebound, rigidity, or guarding. Normal inspection and palpation. EXTREMITIES: Normal inspection and palpation. No edema, clubbing or cyanosis. SKIN: Warm and dry without rashes. Normal inspection. MUSCULOSKELETAL: No cervical, thoracic, lumbar or midline bony tenderness. Normal inspection. NEURO: Alert, awake, no focal motor or sensory deficit noted. No signs of meningeal irritation noted. PSYCHIATRIC: Normal mood and affect. Objective Labs 05/25/24 05:10 05/25/24 05:10 Labs: Laboratory Results - last 24 hr 05/24/24 05/24/24 05/24/24 04:57 08:34 11:55 WBC 19.0 H D RBC 3.05 L Hgb 9.1 L 8.5 L Hct 26.4 L 25.5 L MCV 87 MCH 29.8 MCHC 34.5 RDW Std Deviation 61.1 H Plt Count 50 L D Neut % (Auto) 87 H Lymph % (Auto) 6 L Menard % (Auto) 5 Eos % (Auto) 1 Baso % (Auto) 0 Neut # (Auto) 16.4 H Lymph # (Auto) 1.2 Menard # (Auto) 0.9 H Eos # (Auto) 0.1 Baso # (Auto) 0.1 Immature Gran # (Auto) 0.31 H Absolute Nucleated RBC 0.03 H Immature Gran % 2 H Nucleated RBC % 0 PT 24.3 H INR 2.4 H APTT 58.4 H Sodium 147 H Potassium 4.1 Chloride 115 H Carbon Dioxide 15.0 L Anion Gap 17 H BUN 52 H Creatinine 3.4 H D Estim Creat Clear Calc 22.1 L eGFR 20 L BUN/Creatinine Ratio 15 Glucose 100 Calculated Osmolality 306 H Lactic Acid 2.6 H 2.2 H Calcium 10.0 Corrected Calcium 10.9 H Phosphorus 5.8 H Magnesium 2.5 Total Bilirubin 34.7 H* AST 73 H ALT 71 H Alkaline Phosphatase 142 H D Total Protein 5.6 L Albumin 2.9 L Globulin 2.7 Albumin/Globulin Ratio 1.1 L Triglycerides 112 Cholesterol 77 L LDL Cholesterol, Calc 50 HDL Cholesterol < 5 L Cholesterol/HDL Ratio 15.0 H Beta-Hydroxybutyrate/Acetoacetate 0.2 Ur Random Creatinine Ur Random Sodium Ur Random Potassium Ur Random Chloride Vancomycin Trough 26.7 H* Misc Test Result Platelets confirmed 05/24/24 18:00 WBC RBC Hgb Hct MCV MCH MCHC RDW Std Deviation Plt Count Neut % (Auto) Lymph % (Auto) Menard % (Auto) Eos % (Auto) Baso % (Auto) Neut # (Auto) Lymph # (Auto) Menard # (Auto) Eos # (Auto) Baso # (Auto) Immature Gran # (Auto) Absolute Nucleated RBC Immature Gran % Nucleated RBC % PT INR APTT Sodium 148 H Potassium 4.0 Chloride 116 H Carbon Dioxide 15.3 L Anion Gap 17 H BUN 56 H Creatinine 3.2 H Estim Creat Clear Calc 23.5 L eGFR 21 L BUN/Creatinine Ratio 18 Glucose 150 H D Calculated Osmolality 312 H Lactic Acid Calcium 10.0 Corrected Calcium 10.6 H Phosphorus 5.8 H Magnesium Total Bilirubin AST ALT Alkaline Phosphatase Total Protein Albumin 3.3 L Globulin Albumin/Globulin Ratio Triglycerides Cholesterol LDL Cholesterol, Calc HDL Cholesterol Cholesterol/HDL Ratio Beta-Hydroxybutyrate/Acetoacetate Ur Random Creatinine 36 Ur Random Sodium 71.8 Ur Random Potassium 48 Ur Random Chloride 87.5 Vancomycin Trough Misc Test Result ABG Interpretation ABG results: 05/15/24 05/15/24 05/15/24 08:45 14:25 16:08 ABG pH 7.31 L 7.04 L* D 7.22 L D ABG pCO2 20 L 58 H D 35 D ABG pO2 116 H 330 H D 63 L D ABG HCO3 10 L 16 L 14 L ABG O2 Saturation 98 99 H 89 L ABG Base Excess -15 L -15 L -13 L VBG pH VBG pCO2 VBG pO2 VBG Base Excess 05/15/24 05/16/24 05/16/24 19:03 04:05 05:05 ABG pH 7.27 L 7.43 D 7.48 H ABG pCO2 27 L 56 H D 23 L D ABG pO2 85 D 160 H D 191 H D ABG HCO3 12 L 37 H 17 L ABG O2 Saturation 96 101 H 100 H ABG Base Excess -13 L 11 H -5 L VBG pH VBG pCO2 VBG pO2 VBG Base Excess 05/16/24 05/16/24 05/16/24 11:34 14:20 18:35 ABG pH 7.49 H 7.52 H 7.55 H ABG pCO2 27 L 26 L 25 L ABG pO2 173 H 160 H 201 H D ABG HCO3 21 21 21 ABG O2 Saturation 100 H 100 H 100 H ABG Base Excess -2 -1 0 VBG pH VBG pCO2 VBG pO2 VBG Base Excess 05/16/24 05/17/24 05/19/24 21:53 11:34 05:05 ABG pH 7.55 H 7.54 H 7.44 D ABG pCO2 25 L 26 L 32 ABG pO2 206 H 177 H D 80 L D ABG HCO3 22 22 22 ABG O2 Saturation 100 H 100 H 97 ABG Base Excess 0 0 -2 VBG pH VBG pCO2 VBG pO2 VBG Base Excess 05/20/24 05/22/24 05/23/24 04:55 09:46 08:05 ABG pH 7.43 ABG pCO2 32 ABG pO2 102 D ABG HCO3 21 ABG O2 Saturation 99 H ABG Base Excess -3 VBG pH 7.36 7.42 VBG pCO2 25 L 24 L VBG pO2 120 H 58 D VBG Base Excess -10 L -8 L Assessment & Plan Assessment and plan (1) Altered mental status: Status: Resolved (2) Acute upper GI bleeding: Status: Acute Assessment and plan: Continue with the current management as per primary team. GI following (3) Anemia: Status: Acute Assessment and plan: Hemoglobin and hematocrit improving with blood transfusion (4) Alcoholic liver disease: Status: Chronic Procedures Arterial Line Size (Gauge): 18
[2024-05-25] VITALS (27 sets, daily range): BP systolic 105–134; BP diastolic 51–69; PULSE 59–85; RESP 13–23; TEMP 35.6–36.3; O2SAT 92–100
[2024-05-25 00:45] LABS: Hematocrit 23.5 % (41.0-53.0)
[2024-05-25 00:46] LABS: Hemoglobin 7.9 g/dL (13.5-16.0)
[2024-05-25 01:08] LABS: Albumin, Serum 3.4 gm/dL (3.5-5.0); Anion Gap 15 (7-16); BUN/Creatinine Ratio 17 Ratio (12-20); Blood Urea Nitrogen 55 mg/dL (9-23); Calcium 9.6 mg/dL (8.3-10.6); Calcium (Corrected) 10.1 mg/dL (8.5-10.1); Chloride 117 mMol/L (98-107); Creatinine (Component) 3.2 mg/dL (0.6-1.3); Estimated Creatinine Clearance 23.5 mL/min (>60); Glucose 152 mg/dL (74-106); Osmolality,Calculated 310 (275-295); Phosphorous 5.4 mg/dL (2.4-5.1); Potassium 3.7 mMol/L (3.4-5.1); Sodium 147 mMol/L (136-145); eGFR 21 See Note
[2024-05-25 01:11] LABS: Carbon Dioxide 14.9 mMol/L (20.0-31.0)
[2024-05-25] MEDS: ALBUMIN HUMAN 25% IVPB 25 GM/100 ML BTL IV ×3 (05:18→21:27)
[2024-05-25] MEDS: OCTREOTIDE ACET INJ 1,000 MCG in SODIUM CHLORIDE 0.9% 100 ML 5.1 MCG IV (05:18)
[2024-05-25] MEDS: LACTULOSE SYRUP 10 GM/15 ML 200 GM PR (05:19)
[2024-05-25 05:34] LABS: Lactate (Lactic Acid) 2.5 mMol/L (0.4-2.0)
[2024-05-25 05:50] LABS: Basophils % (Auto) 0 % (0-2.5); Eosinophils # (Auto) 0.2 Thou/mm3 (0.0-0.5); Eosinophils % (Auto) 2 % (0-10); Hematocrit 22.1 % (41.0-53.0); Immature Granulocytes % (Auto) 3 % (0-0); Immature Granulocytes Auto 0.36 Thou/mm3 (0.00-0.00); Lymphocytes # (Auto) 1.2 Thou/mm3 (1.0-4.8); Lymphocytes % (Auto) 9 % (10-50); Mean Corpuscular HGB Conc 33.9 g/dl (31.0-37.0); Mean Corpuscular Hemoglobin 30.4 pg (25.0-35.0); Mean Corpuscular Volume 90 fL (80-100); Monocytes # (Auto) 0.5 Thou/mm3 (0.0-0.8); Monocytes % (Auto) 4 % (0-12); Neutrophils % (Auto) 82 % (37-80); Nucleated Red Blood Cell # 0.03 Thou/mm3 (0.00-0.00); Nucleated Red Blood Cell % 0 /100 WBC (0); RDW Standard Deviation 66.9 fL (35.1-43.9); Red Blood Count 2.47 Miln/mm3 (4.50-5.90); White Blood Count 13.3 Thou/mm3 (3.8-10.6)
[2024-05-25 06:00] LABS: Hemoglobin 7.5 g/dL (13.5-16.0); Platelet Count 38 Thou/mm3 (140-440)
[2024-05-25 06:14] LABS: Ammonia 49 uMol/L (11-32)
[2024-05-25 06:31] LABS: Slide Review Platelets confirmed
[2024-05-25 06:34] LABS: Folate 22.45 ng/mL (>5.38); Vitamin B12 > 2000 pg/mL (211-911)
[2024-05-25 06:35] LABS: Syphilis Nonreactive (Nonreactive)
[2024-05-25 06:36] LABS: INR 2.5 (0.9-1.3); Prothrombin Time 26.1 Seconds (9.0-12.2)
[2024-05-25 06:37] LABS: Alanine Aminotransferase 50 U/L (10-49); Albumin, Serum 3.1 gm/dL (3.5-5.0); Albumin/Globulin Ratio 1.6 (1.2-2.2); Alkaline Phosphatase 111 U/L (46-116); Anion Gap 16 (7-16); Aspartate Amino Transferase 51 U/L (0-34); BUN/Creatinine Ratio 18 Ratio (12-20); Blood Urea Nitrogen 65 mg/dL (9-23); Calcium 9.2 mg/dL (8.3-10.6); Calcium (Corrected) 9.9 mg/dL (8.5-10.1); Chloride 115 mMol/L (98-107); Creatinine (Component) 3.6 mg/dL (0.6-1.3); Estimated Creatinine Clearance 20.9 mL/min (>60); Globulin 1.9 gm/dL (2.3-3.5); Glucose 127 mg/dL (74-106); Magnesium 2.4 mg/dL (1.6-2.6); Osmolality,Calculated 311 (275-295); Phosphorous 5.2 mg/dL (2.4-5.1); Potassium 3.5 mMol/L (3.4-5.1); Sodium 146 mMol/L (136-145); Thyroid Stimulating Hormone 0.19 uIU/mL (0.55-4.78); eGFR 19 See Note
[2024-05-25 06:38] LABS: Partial Thromboplastin Time > 139.0 Seconds (22.0-36.0)
[2024-05-25 06:54] LABS: Bilirubin,Total 32.1 mg/dL (0.3-1.2)
[2024-05-25 08:32] LABS: Reflex Lactate? Y
--- NOTE | 2024-05-25 09:00 | PC.SS ---
PATIENT RESOURCE COORDINATOR attempted phone contact with patient?s son, Benjamin Villarreal Jr ; to schedule goals of care.? No response, PATIENT RESOURCE COORDINATOR left voicemail.? PATIENT RESOURCE COORDINATOR contacted the [facility] in an attempt to obtain contact number for patient?s son, Yuri Villarreal.? [facility] to contact patient?s son, Yuri Villarreal; with request to contact PATIENT RESOURCE COORDINATOR.? Stephon Goldstein unable to provide personal information (cell number) to PATIENT RESOURCE COORDINATOR. ?Pending return call.?
--- NOTE | 2024-05-25 09:27 | PC.SS ---
INTAKE CLINICIAN received return call from patient's son, Yuri Villarreal . INTAKE CLINICIAN informed patient's son of need to conduct contact with patient's son, Benjamin Reyes Jr; to initiate goals of care discussion. INTAKE CLINICIAN informed patient's son, Yuri Villarreal; that phone contact has been initiated to brother, Benjamin Villarreal Jr, with responses pending. Patient's son, Yuri Villarreal; will contact brother (Benjamin Villarreal Jr.) and inform of need to come to the hospital to participate in goals of care discussion. Patient's son, Yuri Villarreal; to follow up with INTAKE CLINICIAN on arrival time to the hospital. INTAKE CLINICIAN updated bedside nurse.
--- NOTE | 2024-05-25 10:16 | ESPR_ITS ---
<Statement entered by Alison Gonzalez MD - 05/25/24 11:20> TOTAL CC TIME: 35 MIN I saw and evaluated the patient. I reviewed the resident?s note and agree with findings and plan as documented in the resident?s note. Upon my evaluation, this patient had a high probability of imminent or life- threatening deterioration due to liver/renal failure; GIB, which required my direct attention, intervention, and personal management. This time is exclusive of time spent on procedures, which are documented separately if performed. s/p esophageal banding x 4 no further clear evid of bleeding - but remains very high risk cont albumin today treat 14d of abx given very high risk for recurring infx 400 uo o/n. GFR slightly worse - no emergency HD needs ptt continues to increase due to synthetic dysfunction from shock liver waiting to get contact number for son. we were informed 1 or both sons are suppose to be coming to the hospital. GOC will be discussed once they are here or we are able to communicate with them over the phone. Documentation for date of: 05/25/24 Subjective Subjective Interval history: The patient is a 59-year-old male with a past medical history significant for alcohol use disorder, esophageal varices (status post banding), hypertension, hyperlipidemia, type 2 diabetes, HFpEF with an ejection fraction of 55-60%, and biliary dyskinesia. He was admitted to the hospital on 05/15/2024 following an episode of bloody emesis. On presentation, the patient was found to be encephalopathic and was unable to provide a clear history. He mentioned a history of multiple hospital admissions due to severe alcohol withdrawal. Initial Presentation: Upon admission, the patient?s blood pressure was on the lower end, but the MAP remained above 65 mmHg, which was maintained. The patient was also noted to have acute kidney injury, likely due to acute blood loss anemia. Laboratory results revealed lactic acidosis and hyperammonemia, which further complicated his clinical picture. During his hospital stay, the patient's condition deteriorated significantly. He developed severe anemia and continued to experience significant gastrointestina losses. A consultation with Dr. Liu was obtained, and the patient underwent EGD twice. The EGD revealed profuse bleeding, which was successfully managed with banding of the varices. Despite this, the patient?s hemoglobin dropped below 6 g/dL, and he required multiple units of packed red blood cells for transfusion. At one point, the patient became increasingly encephalopathic, and airway protection was required, necessitating intubation. Additionally patient blood pressure was on the low side requiring pressor support.patient underwent to hemorrhagic shock requiring multiple blood transfusion and vasopressors to maintain the blood pressure. Initially, the plan was to transfer the patient to a high-care facility for a TIPS procedure. However, due to his MELD-Na score and his unstable condition, many institutions declined the transfer. ICU Course: While in the ICU, the patient?s condition showed some improvement. He was successfully extubated, weaned off from pressors and his acute kidney injury resolved. Following the banding procedure, his hemoglobin stabilized, and hyperammonemia resolved with lactulose treatment. He was safely downgraded to the floor. 05/23/2024 Today, the ICU team was consulted due to concerns about abdominal compartment syndrome. Bladder pressures were measured and were found to be greater than 20 mmHg, raising concerns. Initially, a paracentesis was planned, but bedside ultrasound did not reveal significant ascitic fluid. Additionally, an abdominal X-ray showed a mild ileus, which was concerning for a small bowel obstruction . Currently, the patient is saturating in room air and is not complaining of any abdominal distension or pain. An NG tube was placed to decompress the bowel, and the gastroenterology team is now involved. GI will evaluate the patient to determine if a rectal tube will be needed for further bowel decompression. 05/24/24:Patient was seen and examined at bedside. . Patient bladder pressure in a morning was 17, had 250 cc of urine output and 2 BM. labs revieled worsening kidney function, creatinine went up from 2.3 to 3.4, BUN is 52, AG is 17, Lactic acid will be checked, patient also devoloped respiratory alkalosis most likely in a setting of tachipnea. Concern of hepatorenal syndrom, ICU team was consulted due to concern of abdominal compartment syndrome and progressively worsening kidney function. Patient is a high risk of aspiration and severe GI bleed, patient will be upgraded to ICU for close monitoring of hemodynamics. 05/24/24: The patient was evaluated and examined in the ICU. No acute events occurred overnight. Yesterday, the patient underwent an EGD, which revealed grade 3 esophageal varices four bandings was placed The patient will continue on an octreotide drip and PPI therapy Over the last 24 hours, the patient had a urine output of 1200 mL. However, the renal panel indicates worsening kidney function with a creatinine level of 3.6 and a BUN of 65, both of which have risen compared to yesterday. Lactic acid is elevated at 2.5..Nephrology has been consulted, and we will continue to monitor renal function closely. Ultrasound revealed parenchymal scarring. We will initiate a goals of care discussion with the family to evaluate the appropriateness of further interventions, including hemodialysis, given the patient's fulminant liver failure and overall prognosis. The coagulation panel shows worsening liver synthetic function: APTT is 139 seconds, INR is 2.5, and PTT is 26.1. The ammonia level has decreased to 46. On evaluation today, the patient was alert and oriented to person and place, but still remains somewhat confused and not fully oriented. Lactulose is being administered per rectum, and the patient had one bowel movement today. The patient is continuing treatment with albumin, octreotide, and midodrine for hepatorenal syndrome. Attempts to contact the family have been unsuccessful. Earlier today, we spoke with a friend who is not the decision-maker. The nursing home social worker is involved, and we are continuing efforts to reach the patient?s son, who is the primary decision-maker. We will continue efforts to reach the decision-maker and, once in contact, will discuss the clinical prognosis, the potential risks and benefits of aggressive treatments, and future care planning. Exam Vital Signs Temp Pulse Resp BP Pulse Ox O2 Del Method O2 Flow Rate 96.8 F 68 16 120/60 94 L Room Air 3 05/25/24 07:00 05/25/24 09:00 05/25/24 09:00 05/25/24 09:00 05/25/24 09:00 05/25/24 04:00 05/24/24 20:50 FiO2 30 05/22/24 00:00 Narrative Exam GENERAL:Severly icteric Ill looking man, AxOx2 HEENT: Normocephalic, atraumatic. Pupils are equal and reactive. icteric sclera, teeth loose. NECK: Supple, nontender, no JVD CARDIOVASCULAR: Heart regular rhythm & rate. S1/S2. no murmur or gallop rub or extra beats. LUNGS:bilaterally expiratory wheezing with symmetrical chest rise. No crackles. No intercostal subcostal retraction. No rales and no rhonchi. ABDOMEN: Distended Active and normal bowel sounds. EXTREMITIES/skin : Icteric , small necrotic area around right big toe . Objective Labs 05/25/24 05:10 05/25/24 05:10 Labs: Laboratory Results - last 24 hr 05/14/24 05/24/24 05/24/24 21:46 08:34 11:55 WBC RBC Hgb 8.5 L Hct 25.5 L MCV MCH MCHC RDW Std Deviation Plt Count Neut % (Auto) Lymph % (Auto) Haakon % (Auto) Eos % (Auto) Baso % (Auto) Neut # (Auto) Lymph # (Auto) Haakon # (Auto) Eos # (Auto) Baso # (Auto) Immature Gran # (Auto) Absolute Nucleated RBC Immature Gran % Nucleated RBC % PT INR APTT Sodium Potassium Chloride Carbon Dioxide Anion Gap BUN Creatinine Estim Creat Clear Calc eGFR BUN/Creatinine Ratio Glucose Calculated Osmolality Lactic Acid 2.2 H Calcium Corrected Calcium Phosphorus Magnesium Total Bilirubin AST ALT Alkaline Phosphatase Ammonia Total Protein Albumin Globulin Albumin/Globulin Ratio Triglycerides 112 Cholesterol 77 L LDL Cholesterol, Calc 50 HDL Cholesterol < 5 L Cholesterol/HDL Ratio 15.0 H Vitamin B12 Folate TSH Ur Random Creatinine Ur Random Sodium Ur Random Potassium Ur Random Chloride Syphilis Serology Misc Test Result Crossmatch See Detail 05/24/24 05/25/24 05/25/24 18:00 00:34 05:10 WBC 13.3 H D RBC 2.47 L Hgb 7.9 L 7.5 L Hct 23.5 L 22.1 L MCV 90 MCH 30.4 MCHC 33.9 RDW Std Deviation 66.9 H Plt Count 38 L D Neut % (Auto) 82 H Lymph % (Auto) 9 L Haakon % (Auto) 4 Eos % (Auto) 2 Baso % (Auto) 0 Neut # (Auto) 11.0 H Lymph # (Auto) 1.2 Haakon # (Auto) 0.5 Eos # (Auto) 0.2 Baso # (Auto) 0.0 Immature Gran # (Auto) 0.36 H Absolute Nucleated RBC 0.03 H Immature Gran % 3 H Nucleated RBC % 0 PT 26.1 H INR 2.5 H APTT > 139.0 H* D Sodium 148 H 147 H 146 H Potassium 4.0 3.7 3.5 Chloride 116 H 117 H 115 H Carbon Dioxide 15.3 L 14.9 L* 15.0 L Anion Gap 17 H 15 16 BUN 56 H 55 H 65 H Creatinine 3.2 H 3.2 H 3.6 H Estim Creat Clear Calc 23.5 L 23.5 L 20.9 L eGFR 21 L 21 L 19 L BUN/Creatinine Ratio 18 17 18 Glucose 150 H D 152 H 127 H Calculated Osmolality 312 H 310 H 311 H Lactic Acid 2.5 H Calcium 10.0 9.6 9.2 Corrected Calcium 10.6 H 10.1 9.9 Phosphorus 5.8 H 5.4 H 5.2 H Magnesium 2.4 Total Bilirubin 32.1 H* D AST 51 H ALT 50 H Alkaline Phosphatase 111 D Ammonia 49 H Total Protein 5.0 L Albumin 3.3 L 3.4 L 3.1 L Globulin 1.9 L Albumin/Globulin Ratio 1.6 Triglycerides Cholesterol LDL Cholesterol, Calc HDL Cholesterol Cholesterol/HDL Ratio Vitamin B12 > 2000 H Folate 22.45 TSH 0.19 L Ur Random Creatinine 36 Ur Random Sodium 71.8 Ur Random Potassium 48 Ur Random Chloride 87.5 Syphilis Serology Nonreactive Misc Test Result Platelets confirmed Crossmatch 05/25/24 08:57 WBC RBC Hgb Hct MCV MCH MCHC RDW Std Deviation Plt Count Neut % (Auto) Lymph % (Auto) Haakon % (Auto) Eos % (Auto) Baso % (Auto) Neut # (Auto) Lymph # (Auto) Haakon # (Auto) Eos # (Auto) Baso # (Auto) Immature Gran # (Auto) Absolute Nucleated RBC Immature Gran % Nucleated RBC % PT INR APTT Sodium Potassium Chloride Carbon Dioxide Anion Gap BUN Creatinine Estim Creat Clear Calc eGFR BUN/Creatinine Ratio Glucose Calculated Osmolality Lactic Acid Cancelled Calcium Corrected Calcium Phosphorus Magnesium Total Bilirubin AST ALT Alkaline Phosphatase Ammonia Total Protein Albumin Globulin Albumin/Globulin Ratio Triglycerides Cholesterol LDL Cholesterol, Calc HDL Cholesterol Cholesterol/HDL Ratio Vitamin B12 Folate TSH Ur Random Creatinine Ur Random Sodium Ur Random Potassium Ur Random Chloride Syphilis Serology Misc Test Result Crossmatch ABG Interpretation ABG results: 05/15/24 05/15/24 05/15/24 08:45 14:25 16:08 ABG pH 7.31 L 7.04 L* D 7.22 L D ABG pCO2 20 L 58 H D 35 D ABG pO2 116 H 330 H D 63 L D ABG HCO3 10 L 16 L 14 L ABG O2 Saturation 98 99 H 89 L ABG Base Excess -15 L -15 L -13 L VBG pH VBG pCO2 VBG pO2 VBG Base Excess 05/15/24 05/16/24 05/16/24 19:03 04:05 05:05 ABG pH 7.27 L 7.43 D 7.48 H ABG pCO2 27 L 56 H D 23 L D ABG pO2 85 D 160 H D 191 H D ABG HCO3 12 L 37 H 17 L ABG O2 Saturation 96 101 H 100 H ABG Base Excess -13 L 11 H -5 L VBG pH VBG pCO2 VBG pO2 VBG Base Excess 05/16/24 05/16/24 05/16/24 11:34 14:20 18:35 ABG pH 7.49 H 7.52 H 7.55 H ABG pCO2 27 L 26 L 25 L ABG pO2 173 H 160 H 201 H D ABG HCO3 21 21 21 ABG O2 Saturation 100 H 100 H 100 H ABG Base Excess -2 -1 0 VBG pH VBG pCO2 VBG pO2 VBG Base Excess 05/16/24 05/17/24 05/19/24 21:53 11:34 05:05 ABG pH 7.55 H 7.54 H 7.44 D ABG pCO2 25 L 26 L 32 ABG pO2 206 H 177 H D 80 L D ABG HCO3 22 22 22 ABG O2 Saturation 100 H 100 H 97 ABG Base Excess 0 0 -2 VBG pH VBG pCO2 VBG pO2 VBG Base Excess 05/20/24 05/22/24 05/23/24 04:55 09:46 08:05 ABG pH 7.43 ABG pCO2 32 ABG pO2 102 D ABG HCO3 21 ABG O2 Saturation 99 H ABG Base Excess -3 VBG pH 7.36 7.42 VBG pCO2 25 L 24 L VBG pO2 120 H 58 D VBG Base Excess -10 L -8 L Quality Measures Quality Measures VTE prophylaxis Assessment & Plan Assessment Current Active Medications: Generic Name Dose Route Start Last Admin Trade Name Freq PRN Reason Stop Dose Admin Albuterol/Ipratropium 3 ml 05/20/24 15:53 Albuterol/Ipratropium (Duoneb) Rt Irina 3 Ml Nebu INH 06/19/24 15:52 Q6HRRT PRN SHORTNESS OF BREATH OR WHEEZE Cholestyramine Resin 1 pkt 05/18/24 21:00 05/25/24 08:23 Cholestyramine/Sucrose 1 Pkt Ea PO 06/17/24 20:59 Not Given BID SREE Dextrose 25 ml 05/15/24 01:22 Dextrose 50%-Water Inj 50 Ml Syringe IV 06/14/24 01:21 Q15MIN PRN BG 50-70 responsive npo pt Dextrose 50 ml 05/15/24 01:22 Dextrose 50%-Water Inj 50 Ml Syringe IV 06/14/24 01:21 Q15MIN PRN BG <50 OR BG <70 & pt unresponsive Glucagon 1 mg 05/15/24 01:22 Glucagon Inj 1 Mg Vial IM Q15MIN PRN BG <70, and no IV access Albumin Human 25 gm in 100 mls @ 100 mls/hr 05/24/24 09:30 05/25/24 05:18 Albuminar-25 Ivpb IV 05/26/24 00:00 100 mls/hr TID SERE Administration Protocol Albumin Human 25 gm in 100 mls @ 100 mls/hr 05/26/24 09:00 Albuminar-25 Ivpb IV 05/29/24 08:59 QDAY SREE Protocol Octreotide Acetate 1,000 mcg/ 102 mls @ 5.1 mls/hr 05/24/24 09:23 05/25/24 05:18 Sodium Chloride IV 05/29/24 09:23 50 mcg/hr .Q20H SREE 5.1 mls/hr Administration Protocol 50 MCG/HR Multivitamins/Minerals 10 ml/ 2,010 mls @ 55 mls/hr 05/24/24 18:00 05/25/24 08:24 Amino Acids IV 05/25/24 17:59 27.5 mls/hr .Q24H SREE Infusion Ceftriaxone Sodium/Dextrose 2 gm in 50 mls @ 100 mls/hr 05/25/24 09:00 Rocephin/D5w 2gm IV 06/01/24 08:59 QDAY SREE Fat Emulsion Intravenous 500 mls @ 32 mls/hr 05/24/24 18:00 05/25/24 08:24 Intralipid 20% Iv IV 06/23/24 17:59 16 mls/hr [id number] SREE Infusion Insulin Human Lispro 0 unit 05/25/24 00:00 05/25/24 06:41 Insulin Lispro (Admelog) 1 Unit/0.01 Ml Unit SC 06/24/24 00:00 Not Given Q6HR SREE Protocol Lactulose 200 gm 05/23/24 14:00 05/25/24 05:19 Lactulose Syrup 10 Gm/15 Ml GA 06/22/24 13:59 200 gm TID SREE Administration Protocol Midodrine 10 mg 05/24/24 14:00 05/25/24 05:19 Midodrine 5 Mg Tablet PO 06/23/24 13:59 Not Given TID SREE Ondansetron HCl 4 mg 05/15/24 01:17 05/15/24 05:46 Ondansetron Inj 2 Mg/Ml Inj 2 Ml IV 06/14/24 01:16 4 mg Q6H PRN Administration NAUSEA OR VOMITING Protocol Pantoprazole Sodium 80 mg 05/15/24 21:00 05/24/24 21:12 Pantoprazole Inj 40 Mg Vial IVP 06/14/24 20:59 80 mg BID SREE Administration Rifaximin 550 mg 05/22/24 09:00 05/25/24 08:23 Rifaximin 550 Mg Tablet PO 05/29/24 08:59 Not Given BID SREE Simethicone 80 mg 05/22/24 18:00 05/25/24 05:19 Simethicone 80 Mg Chew PO 06/21/24 17:59 Not Given QID SREE Sodium Bicarbonate 650 mg 05/22/24 09:00 05/25/24 08:23 Sodium Bicarbonate 650 Mg Tablet PO 06/21/24 08:59 Not Given BID SREE Plan The patient is a 59-year-old male with a past medical history significant for alcohol use disorder, esophageal varices (status post banding), hypertension, hyperlipidemia, type 2 diabetes, HFpEF with an ejection fraction of 55-60%, and biliary dyskinesia. He was admitted to the hospital on 05/15/2024 following an episode of bloody emesis. Patient was upgraded to ICU due to hemorrhagic shock requiring pressors and intubation for airway protection. ICU team was consulted due to concern of abdominal compartment syndrome and progressively worsening kidney function. Patient is a high risk of aspiration and severe GI bleed, patient will be upgraded to ICU for close monitoring of hemodynamics. [employer] Acute metabolic encephalopathy, multifactorial, could be secondary due to hyperammonemia as well as acute GI bleed, underlying infection. Patient today upon my evaluation AOx2 ? CT head negative ? Ammonia down trended ? Patient is on lactulose GA ? Rifaximin 550 twice daily ? Frequent mental status reassessment Respiratory Patient is a very high risk of aspiration, will need close monitoring in ICU. Patient saturated on room air Respiratory alkalosis in the setting of tachypnea Patient completed antibiotic for pneumonia seen on the chest x-ray [facility] #mixed hypovolemic(class 3 hemorrhagic shock) +septic shock-resolved Class III hemorrhage involves a 30 to 40 percent blood volume loss, resulting in a significant drop in blood pressure and changes in mental status.He has received massive blood transfusion, calcium was replaced #History of hypertension #History of hyperlipidemia #HFpEF 55 to 60% Currently blood pressure is under control We will discontinue hydralazine GI #Acute GI bleed #History of grade 3 esophageal varices status post banding #History of alcohol use disorder Patient was in ICU until 05/19/2024 due to hemorrhagic shock, received multiple blood products transfusion. 05/17:Dr. Liu did EGD:Grade 2 esophageal varices, banded, erythematous mucosa in the stomach. Diffuse mucosal oozing of blood in the setting of portal hypertension with blood clots in the proximal body of the stomach, underlying surface could not be evaluated for fundic gastric varices. Per GI recommended to continue octreotide infusion and Protonix, support with blood products 05/24/2024: Patient had bloody NG tube output, about 300 mL was removed. 05/05/2024: Patient had EGD yesterday, performed by Dr. Liu, grade 3 esophageal varices was noted, status post 4 banding -Continue PPI - on octreotide drip -Will try to keep patient normotensive -Dr. 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 Patient at some point will need paracentesis, currently he is not stable enough, we will address GI bleed first, we will monitor the patient for now. -Continue octreotide drip -Patient started on albumin -started midodrin 10 TID -Continue ceftriaxone -Attempt was made to transfer patient for TIPS, however transfer was declined from multiple institutions due to high risk #Abdominal distention Concern for intra-abdominal compartment syndrome ICU team was consulted due to concerns about abdominal compartment syndrome that can be contributing factor for developing JEANIE. Bladder pressures were measured and were found to be greater than 20 mmHg, raising concerns. Initially, a paracentesis was planned, but bedside ultrasound did not reveal significant ascitic fluid. Additionally, an abdominal X-ray showed a mild ileus, which was concerning for a small bowel obstruction . Currently, the patient is saturating in room air and is not complaining of any abdominal distension or pain. An NG tube was placed to decompress the bowel, Repeat bladder pressure was found to be 13 after NG tube placement. -we will continue monitor -monitor UO Renal #Prerenal JEANIE versus ATN #Fluctuating hypertension that can be causing severe renal function #Concern for hepatorenal Patient noticed to have worsening renal function, decreased urine output. FeNA was calculated, more consistent with ATN. renal US showed parenchymal scar formation -Midodrine 10 3 times daily -Albumin 1 g/kg for the first 2 days, then patient will be transition to 25 g daily -Octreotide drip -Sanchez is in place -Avoid nephrotoxic agents -nephrology is on board -Renally dose medication -Continue to monitor #AGMA resolved #JEANIE prerenal in a setting of dehidration /GI loss versus Hepatorenal #ATN 05/24/24: AG is 17, with corrected albumin 22.25, delta/delta 0.9 suggestive AGMA most likely in a setting of lactic acidosis Most likely in the setting of renal failure Delta gap below 1 Compensated with respiratory alkalosis 05/25/24: Nephrology evaluated the patient, at bedside, and decision was made to continue monitoring urine output, continue IVF, will have goals of care discussion with the son who is a decision maker to discuss in depth the clinical course, future plan including the need of hemodialysis however patient prognosis still very poor given the fulminant liver failure. -Nephrology is on board, will follow-up with recommendations #Hyperchloremic hypernatremia improving Could be secondary due to dehydration Patient currently is receiving [id number] 100 cc/h Patient started on PPN ENDO #DM2 -A1c 6.7% on 04/2024 -ISS - Hypoglycemia protocol ordered Hematology #Thrombocytopenia #Acute blood loss anemia -H&H monitoring -Continue close monitor, transfuse if hemoglobin less than 7 ID GPC/Streptococcus anginosus Group bacteremia on culture that was drawn 05/14/2024, ID is on board, patient received Broad-spectrum antibiotics, vancomycin was stopped by ID, currently is on ceftriaxone Echo did not reveal any vegetation, EF of 55 to 60%, RVSP 35 Repeat blood culture is negative Hospital management: Disposition: ICU Fluids: none Diet:PPN Lines: PIV DVT prophylaxis: SCDs GI prophylaxis: pantoprazole 80 mg IV BID Sanchez: placed CODE STATUS: full code Patient care was discussed with attending physician Dr. Lisa Banks MD PGY-2
[2024-05-25] MEDS: cefTRIAXone/D5w 2gm 2 GM/50 ML BAG IV (10:43)
[2024-05-25] MEDS: PANTOPRAZOLE INJ 40 MG VIAL 80 MG IVP ×2 (10:43→21:26)
[2024-05-25] MEDS: ALBUTEROL/IPRATROPIUM (Duoneb) RT SOL 3 ML NEBU INH (10:48)
--- NOTE | 2024-05-25 11:30 | PC.SS ---
Update: Patient upgraded to ICU on 05-24-24. Patient on room air. Patient is not on pressor support. Receiving IV antibiotics. Diabetic ulcer on rt big toe. Patient is afebrile. On PPN. Patient is experiencing worsening kidney function. EGD conducted last night.
--- NOTE | 2024-05-25 14:51 | PD.RESPRO ---
Documentation for date of: 05/25/24 Subjective Subjective Interval history: Patient seen and assessed at bedside in ICU. Patient resting comfortably in bed, answering questions appropriately. Exam Vital Signs Temp Pulse Resp BP Pulse Ox O2 Del Method O2 Flow Rate 96.8 F 69 16 131/65 H 98 Room Air 3 05/25/24 07:00 05/25/24 11:00 05/25/24 11:00 05/25/24 11:00 05/25/24 11:00 05/25/24 04:00 05/24/24 20:50 FiO2 30 05/22/24 00:00 Narrative Exam General: laying in bed comfortably, jaundiced, ill-appearing HEENT: scleral icterus Cardiovascular: regular rate and rhythm, systolic murmur appreciated. Pulmonary: Mild wheezing on auscultation lower lobes. Musculoskeletal: normal ROM, no peripheral edema Skin: jaundiced, warm and dry, intact, no rashes Neuro: Alert and oriented x 3, no focal neurological deficits noted. Objective Labs 05/25/24 05:10 05/25/24 05:10 Labs: Laboratory Results - last 24 hr 05/14/24 05/24/24 05/25/24 21:46 18:00 00:34 WBC RBC Hgb 7.9 L Hct 23.5 L MCV MCH MCHC RDW Std Deviation Plt Count Neut % (Auto) Lymph % (Auto) [place] % (Auto) Eos % (Auto) Baso % (Auto) Neut # (Auto) Lymph # (Auto) [place] # (Auto) Eos # (Auto) Baso # (Auto) Immature Gran # (Auto) Absolute Nucleated RBC Immature Gran % Nucleated RBC % PT INR APTT Sodium 148 H 147 H Potassium 4.0 3.7 Chloride 116 H 117 H Carbon Dioxide 15.3 L 14.9 L* Anion Gap 17 H 15 BUN 56 H 55 H Creatinine 3.2 H 3.2 H Estim Creat Clear Calc 23.5 L 23.5 L eGFR 21 L 21 L BUN/Creatinine Ratio 18 17 Glucose 150 H D 152 H Calculated Osmolality 312 H 310 H Lactic Acid Calcium 10.0 9.6 Corrected Calcium 10.6 H 10.1 Phosphorus 5.8 H 5.4 H Magnesium Total Bilirubin AST ALT Alkaline Phosphatase Ammonia Total Protein Albumin 3.3 L 3.4 L Globulin Albumin/Globulin Ratio Vitamin B12 Folate TSH Ur Random Creatinine 36 Ur Random Sodium 71.8 Ur Random Potassium 48 Ur Random Chloride 87.5 Syphilis Serology Misc Test Result Crossmatch See Detail 05/25/24 05/25/24 05:10 08:57 WBC 13.3 H D RBC 2.47 L Hgb 7.5 L Hct 22.1 L MCV 90 MCH 30.4 MCHC 33.9 RDW Std Deviation 66.9 H Plt Count 38 L D Neut % (Auto) 82 H Lymph % (Auto) 9 L [place] % (Auto) 4 Eos % (Auto) 2 Baso % (Auto) 0 Neut # (Auto) 11.0 H Lymph # (Auto) 1.2 [place] # (Auto) 0.5 Eos # (Auto) 0.2 Baso # (Auto) 0.0 Immature Gran # (Auto) 0.36 H Absolute Nucleated RBC 0.03 H Immature Gran % 3 H Nucleated RBC % 0 PT 26.1 H INR 2.5 H APTT > 139.0 H* D Sodium 146 H Potassium 3.5 Chloride 115 H Carbon Dioxide 15.0 L Anion Gap 16 BUN 65 H Creatinine 3.6 H Estim Creat Clear Calc 20.9 L eGFR 19 L BUN/Creatinine Ratio 18 Glucose 127 H Calculated Osmolality 311 H Lactic Acid 2.5 H Cancelled Calcium 9.2 Corrected Calcium 9.9 Phosphorus 5.2 H Magnesium 2.4 Total Bilirubin 32.1 H* D AST 51 H ALT 50 H Alkaline Phosphatase 111 D Ammonia 49 H Total Protein 5.0 L Albumin 3.1 L Globulin 1.9 L Albumin/Globulin Ratio 1.6 Vitamin B12 > 2000 H Folate 22.45 TSH 0.19 L Ur Random Creatinine Ur Random Sodium Ur Random Potassium Ur Random Chloride Syphilis Serology Nonreactive Misc Test Result Platelets confirmed Crossmatch ABG Interpretation ABG results: 05/15/24 05/15/24 05/15/24 08:45 14:25 16:08 ABG pH 7.31 L 7.04 L* D 7.22 L D ABG pCO2 20 L 58 H D 35 D ABG pO2 116 H 330 H D 63 L D ABG HCO3 10 L 16 L 14 L ABG O2 Saturation 98 99 H 89 L ABG Base Excess -15 L -15 L -13 L VBG pH VBG pCO2 VBG pO2 VBG Base Excess 05/15/24 05/16/24 05/16/24 19:03 04:05 05:05 ABG pH 7.27 L 7.43 D 7.48 H ABG pCO2 27 L 56 H D 23 L D ABG pO2 85 D 160 H D 191 H D ABG HCO3 12 L 37 H 17 L ABG O2 Saturation 96 101 H 100 H ABG Base Excess -13 L 11 H -5 L VBG pH VBG pCO2 VBG pO2 VBG Base Excess 05/16/24 05/16/24 05/16/24 11:34 14:20 18:35 ABG pH 7.49 H 7.52 H 7.55 H ABG pCO2 27 L 26 L 25 L ABG pO2 173 H 160 H 201 H D ABG HCO3 21 21 21 ABG O2 Saturation 100 H 100 H 100 H ABG Base Excess -2 -1 0 VBG pH VBG pCO2 VBG pO2 VBG Base Excess 05/16/24 05/17/24 05/19/24 21:53 11:34 05:05 ABG pH 7.55 H 7.54 H 7.44 D ABG pCO2 25 L 26 L 32 ABG pO2 206 H 177 H D 80 L D ABG HCO3 22 22 22 ABG O2 Saturation 100 H 100 H 97 ABG Base Excess 0 0 -2 VBG pH VBG pCO2 VBG pO2 VBG Base Excess 05/20/24 05/22/24 05/23/24 04:55 09:46 08:05 ABG pH 7.43 ABG pCO2 32 ABG pO2 102 D ABG HCO3 21 ABG O2 Saturation 99 H ABG Base Excess -3 VBG pH 7.36 7.42 VBG pCO2 25 L 24 L VBG pO2 120 H 58 D VBG Base Excess -10 L -8 L Quality Measures Quality Measures VTE prophylaxis Assessment & Plan Assessment Current Active Medications: Generic Name Dose Route Start Last Admin Trade Name Freq PRN Reason Stop Dose Admin Albuterol/Ipratropium 3 ml 05/20/24 15:53 05/25/24 10:48 Albuterol/Ipratropium (Duoneb) Rt Irina 3 Ml Nebu INH 06/19/24 15:52 3 ml Q6HRRT PRN Administration SHORTNESS OF BREATH OR WHEEZE Cholestyramine Resin 1 pkt 05/18/24 21:00 05/25/24 08:23 Cholestyramine/Sucrose 1 Pkt Ea PO 06/17/24 20:59 Not Given BID SREE Dextrose 25 ml 05/15/24 01:22 Dextrose 50%-Water Inj 50 Ml Syringe IV 06/14/24 01:21 Q15MIN PRN BG 50-70 responsive npo pt Dextrose 50 ml 05/15/24 01:22 Dextrose 50%-Water Inj 50 Ml Syringe IV 06/14/24 01:21 Q15MIN PRN BG <50 OR BG <70 & pt unresponsive Glucagon 1 mg 05/15/24 01:22 Glucagon Inj 1 Mg Vial IM Q15MIN PRN BG <70, and no IV access Albumin Human 25 gm in 100 mls @ 100 mls/hr 05/24/24 09:30 05/25/24 14:06 Albuminar-25 Ivpb IV 05/26/24 00:00 100 mls/hr TID SREE Administration Protocol Albumin Human 25 gm in 100 mls @ 100 mls/hr 05/26/24 09:00 Albuminar-25 Ivpb IV 05/29/24 08:59 QDAY SREE Protocol Octreotide Acetate 1,000 mcg/ 102 mls @ 5.1 mls/hr 05/24/24 09:23 05/25/24 05:18 Sodium Chloride IV 05/29/24 09:23 50 mcg/hr .Q20H SREE 5.1 mls/hr Administration Protocol 50 MCG/HR Multivitamins/Minerals 10 ml/ 2,010 mls @ 55 mls/hr 05/24/24 18:00 05/25/24 08:24 Amino Acids IV 05/25/24 17:59 27.5 mls/hr .Q24H SREE Infusion Ceftriaxone Sodium/Dextrose 2 gm in 50 mls @ 100 mls/hr 05/25/24 09:00 05/25/24 10:43 Rocephin/D5w 2gm IV 06/01/24 08:59 100 mls/hr QDAY SREE Administration Fat Emulsion Intravenous 500 mls @ 32 mls/hr 05/24/24 18:00 05/25/24 08:24 Intralipid 20% Iv IV 06/23/24 17:59 16 mls/hr [email or web address] SREE Infusion Multivitamins/Minerals 10 ml/ 2,030 mls @ 55 mls/hr 05/25/24 18:00 Potassium Acetate 40 meq/ IV 05/26/24 17:59 Amino Acids QDAY@1800 [facility] Insulin Human Lispro 0 unit 05/25/24 00:00 05/25/24 13:13 Insulin Lispro (Admelog) 1 Unit/0.01 Ml Unit SC 06/24/24 00:00 Not Given Q6HR [facility] Protocol Lactulose 200 gm 05/23/24 14:00 05/25/24 14:24 Lactulose Syrup 10 Gm/15 Ml OK 06/22/24 13:59 Not Given TID [facility] Protocol Midodrine 10 mg 05/24/24 14:00 05/25/24 14:05 Midodrine 5 Mg Tablet PO 06/23/24 13:59 Not Given TID [facility] Ondansetron HCl 4 mg 05/15/24 01:17 05/15/24 05:46 Ondansetron Inj 2 Mg/Ml Inj 2 Ml IV 06/14/24 01:16 4 mg Q6H PRN Administration NAUSEA OR VOMITING Protocol Pantoprazole Sodium 80 mg 05/15/24 21:00 05/25/24 10:43 Pantoprazole Inj 40 Mg Vial IVP 06/14/24 20:59 80 mg BID SREE Administration Rifaximin 550 mg 05/22/24 09:00 05/25/24 08:23 Rifaximin 550 Mg Tablet PO 05/29/24 08:59 Not Given BID SREE Simethicone 80 mg 05/22/24 18:00 05/25/24 13:13 Simethicone 80 Mg Chew PO 06/21/24 17:59 Not Given QID [facility] Sodium Bicarbonate 650 mg 05/22/24 09:00 05/25/24 08:23 Sodium Bicarbonate 650 Mg Tablet PO 06/21/24 08:59 Not Given BID [facility] Plan #Acute encephalopathy?improved Metabolic VS VS infectious VS toxic Continue with antibiotics Repeat EEG showed normal finding. Patient's mentation much improved, continue with lactulose and rifaximin #Upper GI bleed #Anemia #Cirrhosis #Diabetes mellitus #Hypertension #Hyperbilirubinemia #Transaminitis #Bacteremia #Hepatic encephalopathy Continue management per primary team Case discussed with attending Dr Michelle Valdovinos MD PGY3 Attending Provider Attestation/Addendum Patient's chart was reviewed independently and agreed with resident's findings, assessment and plan of care. Continue with current management. He does not have any focal neurological deficit, his mental status is at baseline
--- NOTE | 2024-05-25 15:50 | ESPR_ITS ---
Documentation for date of: 05/25/24 Subjective Subjective Interval history: Mr. Villarreal is a 59-year-old male with past medical history of alcohol use disorder, esophageal varices s/p banding, hypertension, hyperlipidemia, diabetes mellitus, HFpEF, biliary dyskinesia admitted to the hospital on 05/15/2024 with complaints of black tarry stools and bloody emesis. Initially patient was started on octreotide and Protonix drip. Later patient was transferred to the ICU on the same day and patient received multiple units of PRBC transfusion, platelet transfusion following which NG tube was placed and EGD was done By Dr. Calabrese for which patient was intubated as patient is clenching his mouth and not able to open his jaw. EGD done at that time showed diffuse blood oozing from everywhere. Later tried to transfer to higher centers for TIPS but patient was not accepted to higher care center. During ICU stay, patient developed JEANIE for which patient received albumin infusions, octreotide following which JEANIE resolved which could be due to prerenal from hemorrhagic shock. Patient was later extubated and downgraded to floors for further management. Patient was found to have elevated blood pressure of 20 for which primary team suspected abdominal compartment syndrome due to ileus and patient was transferred to ICU Nephrology was consulted for worsening renal function 05/24/2024 Patient is seen and examined at bedside in the ICU. Bel[place]ian-speaking Vitals are stable. On physical examination, noted severe abdominal distention with no peripheral edema noted Labs showed WBC 19, Hb 8.5, platelets 50, INR 2.4, sodium 140 [place], chloride 115, bicarb 15, anion gap 17, BUN 52, creatinine 3.4, lactate 2.2, total bilirubin 34.7 Noted to have a urine output of 250 mL since this morning, total 750 mL in last 24 hours Recommended to start albumin-1 g/kg and continue midodrine for 48 hours Patient appears to be intravascularly volume depleted as patient is on NG tube suction and rectal tube on lactulose 05/25/2024 Patient is seen and examined at the bedside in the ICU. Patient looks sicker than yesterday Vitals are stable. Patient is receiving peripheral parenteral nutrition. Got endoscopy yesterday and found to have Grade III esophageal varices and ligated by Dr. calabrese Patient is able to maintain adequate urine output. But noted to have severe abdominal distention, resonant on percussion, likely due to ileus Recommended to decrease the quantity of infusions by concentrating the medications Labs showed worsening renal functions with sodium 146, chloride 115, BUN 65, creatinine 3.6, lactate 2.5, total bilirubin 32.1, AST 51, ALT 50, albumin 3.1 Fractional excretion of sodium is 4.3%, that could be suggesting ATN Recommended to continue to give albumin infusions for now and continue PPN Exam Vital Signs Temp Pulse Resp BP Pulse Ox O2 Del Method O2 Flow Rate 96.8 F 69 16 131/65 H 98 Room Air 3 05/25/24 07:00 05/25/24 11:00 05/25/24 11:00 05/25/24 11:00 05/25/24 11:00 05/25/24 04:00 05/24/24 20:50 FiO2 30 05/22/24 00:00 Narrative Exam General: Awake. NG tube insitu HEENT: Normocephalic, atraumatic, mucous membranes moist. Heart: Regular rate and rhythm, no murmurs. Lungs: Clear to auscultation with no wheezing or crackles. Abdomen: Soft, severely distended, nontender, decreased bowel sounds. ?No guarding or rebound tenderness. Neurologic: Alert and oriented x3, no gross neurological deficit, and patient able to move all 4 extremities. Extremities: No edema. Skin: Ecchymotic patches noted Objective Labs 05/25/24 05:10 05/25/24 05:10 Labs: Laboratory Results - last 24 hr 05/14/24 05/24/24 05/25/24 21:46 18:00 00:34 WBC RBC Hgb 7.9 L Hct 23.5 L MCV MCH MCHC RDW Std Deviation Plt Count Neut % (Auto) Lymph % (Auto) [place] % (Auto) Eos % (Auto) Baso % (Auto) Neut # (Auto) Lymph # (Auto) [place] # (Auto) Eos # (Auto) Baso # (Auto) Immature Gran # (Auto) Absolute Nucleated RBC Immature Gran % Nucleated RBC % PT INR APTT Sodium 148 H 147 H Potassium 4.0 3.7 Chloride 116 H 117 H Carbon Dioxide 15.3 L 14.9 L* Anion Gap 17 H 15 BUN 56 H 55 H Creatinine 3.2 H 3.2 H Estim Creat Clear Calc 23.5 L 23.5 L eGFR 21 L 21 L BUN/Creatinine Ratio 18 17 Glucose 150 H D 152 H Calculated Osmolality 312 H 310 H Lactic Acid Calcium 10.0 9.6 Corrected Calcium 10.6 H 10.1 Phosphorus 5.8 H 5.4 H Magnesium Total Bilirubin AST ALT Alkaline Phosphatase Ammonia Total Protein Albumin 3.3 L 3.4 L Globulin Albumin/Globulin Ratio Vitamin B12 Folate TSH Ur Random Creatinine 36 Ur Random Sodium 71.8 Ur Random Potassium 48 Ur Random Chloride 87.5 Syphilis Serology Misc Test Result Crossmatch See Detail 05/25/24 05/25/24 05:10 08:57 WBC 13.3 H D RBC 2.47 L Hgb 7.5 L Hct 22.1 L MCV 90 MCH 30.4 MCHC 33.9 RDW Std Deviation 66.9 H Plt Count 38 L D Neut % (Auto) 82 H Lymph % (Auto) 9 L [place] % (Auto) 4 Eos % (Auto) 2 Baso % (Auto) 0 Neut # (Auto) 11.0 H Lymph # (Auto) 1.2 [place] # (Auto) 0.5 Eos # (Auto) 0.2 Baso # (Auto) 0.0 Immature Gran # (Auto) 0.36 H Absolute Nucleated RBC 0.03 H Immature Gran % 3 H Nucleated RBC % 0 PT 26.1 H INR 2.5 H APTT > 139.0 H* D Sodium 146 H Potassium 3.5 Chloride 115 H Carbon Dioxide 15.0 L Anion Gap 16 BUN 65 H Creatinine 3.6 H Estim Creat Clear Calc 20.9 L eGFR 19 L BUN/Creatinine Ratio 18 Glucose 127 H Calculated Osmolality 311 H Lactic Acid 2.5 H Cancelled Calcium 9.2 Corrected Calcium 9.9 Phosphorus 5.2 H Magnesium 2.4 Total Bilirubin 32.1 H* D AST 51 H ALT 50 H Alkaline Phosphatase 111 D Ammonia 49 H Total Protein 5.0 L Albumin 3.1 L Globulin 1.9 L Albumin/Globulin Ratio 1.6 Vitamin B12 > 2000 H Folate 22.45 TSH 0.19 L Ur Random Creatinine Ur Random Sodium Ur Random Potassium Ur Random Chloride Syphilis Serology Nonreactive Misc Test Result Platelets confirmed Crossmatch ABG Interpretation ABG results: 05/15/24 05/15/24 05/15/24 08:45 14:25 16:08 ABG pH 7.31 L 7.04 L* D 7.22 L D ABG pCO2 20 L 58 H D 35 D ABG pO2 116 H 330 H D 63 L D ABG HCO3 10 L 16 L 14 L ABG O2 Saturation 98 99 H 89 L ABG Base Excess -15 L -15 L -13 L VBG pH VBG pCO2 VBG pO2 VBG Base Excess 05/15/24 05/16/24 05/16/24 19:03 04:05 05:05 ABG pH 7.27 L 7.43 D 7.48 H ABG pCO2 27 L 56 H D 23 L D ABG pO2 85 D 160 H D 191 H D ABG HCO3 12 L 37 H 17 L ABG O2 Saturation 96 101 H 100 H ABG Base Excess -13 L 11 H -5 L VBG pH VBG pCO2 VBG pO2 VBG Base Excess 05/16/24 05/16/24 05/16/24 11:34 14:20 18:35 ABG pH 7.49 H 7.52 H 7.55 H ABG pCO2 27 L 26 L 25 L ABG pO2 173 H 160 H 201 H D ABG HCO3 21 21 21 ABG O2 Saturation 100 H 100 H 100 H ABG Base Excess -2 -1 0 VBG pH VBG pCO2 VBG pO2 VBG Base Excess 05/16/24 05/17/24 05/19/24 21:53 11:34 05:05 ABG pH 7.55 H 7.54 H 7.44 D ABG pCO2 25 L 26 L 32 ABG pO2 206 H 177 H D 80 L D ABG HCO3 22 22 22 ABG O2 Saturation 100 H 100 H 97 ABG Base Excess 0 0 -2 VBG pH VBG pCO2 VBG pO2 VBG Base Excess 05/20/24 05/22/24 05/23/24 04:55 09:46 08:05 ABG pH 7.43 ABG pCO2 32 ABG pO2 102 D ABG HCO3 21 ABG O2 Saturation 99 H ABG Base Excess -3 VBG pH 7.36 7.42 VBG pCO2 25 L 24 L VBG pO2 120 H 58 D VBG Base Excess -10 L -8 L Quality Measures Quality Measures VTE prophylaxis Assessment & Plan Assessment Current Active Medications: Generic Name Dose Route Start Last Admin Trade Name Freq PRN Reason Stop Dose Admin Albuterol/Ipratropium 3 ml 05/20/24 15:53 05/25/24 10:48 Albuterol/Ipratropium (Duoneb) Rt Irina 3 Ml Nebu INH 06/19/24 15:52 3 ml Q6HRRT PRN Administration SHORTNESS OF BREATH OR WHEEZE Cholestyramine Resin 1 pkt 05/18/24 21:00 05/25/24 08:23 Cholestyramine/Sucrose 1 Pkt Ea PO 06/17/24 20:59 Not Given BID SREE Dextrose 25 ml 05/15/24 01:22 Dextrose 50%-Water Inj 50 Ml Syringe IV 06/14/24 01:21 Q15MIN PRN BG 50-70 responsive npo pt Dextrose 50 ml 05/15/24 01:22 Dextrose 50%-Water Inj 50 Ml Syringe IV 06/14/24 01:21 Q15MIN PRN BG <50 OR BG <70 & pt unresponsive Glucagon 1 mg 05/15/24 01:22 Glucagon Inj 1 Mg Vial IM Q15MIN PRN BG <70, and no IV access Albumin Human 25 gm in 100 mls @ 100 mls/hr 05/24/24 09:30 05/25/24 14:06 Albuminar-25 Ivpb IV 05/26/24 00:00 100 mls/hr TID SREE Administration Protocol Albumin Human 25 gm in 100 mls @ 100 mls/hr 05/26/24 09:00 Albuminar-25 Ivpb IV 05/29/24 08:59 QDAY SREE Protocol Octreotide Acetate 1,000 mcg/ 102 mls @ 5.1 mls/hr 05/24/24 09:23 05/25/24 05:18 Sodium Chloride IV 05/29/24 09:23 50 mcg/hr .Q20H SREE 5.1 mls/hr Administration Protocol 50 MCG/HR Multivitamins/Minerals 10 ml/ 2,010 mls @ 55 mls/hr 05/24/24 18:00 05/25/24 08:24 Amino Acids IV 05/25/24 17:59 27.5 mls/hr .Q24H SREE Infusion Ceftriaxone Sodium/Dextrose 2 gm in 50 mls @ 100 mls/hr 05/25/24 09:00 05/25/24 10:43 Rocephin/D5w 2gm IV 06/01/24 08:59 100 mls/hr QDAY SREE Administration Fat Emulsion Intravenous 500 mls @ 32 mls/hr 05/24/24 18:00 05/25/24 08:24 Intralipid 20% Iv IV 06/23/24 17:59 16 mls/hr [email or web address] [facility] Infusion Multivitamins/Minerals 10 ml/ 2,030 mls @ 55 mls/hr 05/25/24 18:00 Potassium Acetate 40 meq/ IV 05/26/24 17:59 Amino Acids QDAY@1800 [facility] Insulin Human Lispro 0 unit 05/25/24 00:00 05/25/24 13:13 Insulin Lispro (Admelog) 1 Unit/0.01 Ml Unit SC 06/24/24 00:00 Not Given Q6HR [facility] Protocol Lactulose 200 gm 05/23/24 14:00 05/25/24 14:24 Lactulose Syrup 10 Gm/15 Ml NM 06/22/24 13:59 Not Given TID [facility] Protocol Midodrine 10 mg 05/24/24 14:00 05/25/24 14:05 Midodrine 5 Mg Tablet PO 06/23/24 13:59 Not Given TID [facility] Ondansetron HCl 4 mg 05/15/24 01:17 05/15/24 05:46 Ondansetron Inj 2 Mg/Ml Inj 2 Ml IV 06/14/24 01:16 4 mg Q6H PRN Administration NAUSEA OR VOMITING Protocol Pantoprazole Sodium 80 mg 05/15/24 21:00 05/25/24 10:43 Pantoprazole Inj 40 Mg Vial IVP 06/14/24 20:59 80 mg BID SREE Administration Rifaximin 550 mg 05/22/24 09:00 05/25/24 08:23 Rifaximin 550 Mg Tablet PO 05/29/24 08:59 Not Given BID SREE Simethicone 80 mg 05/22/24 18:00 05/25/24 13:13 Simethicone 80 Mg Chew PO 06/21/24 17:59 Not Given QID SREE Sodium Bicarbonate 650 mg 05/22/24 09:00 05/25/24 08:23 Sodium Bicarbonate 650 Mg Tablet PO 06/21/24 08:59 Not Given BID SREE Plan A 59-year-old male with past medical history of alcohol use disorder, esophageal varices s/p banding, hypertension, hyperlipidemia, diabetes mellitus, HFpEF, biliary dyskinesia admitted to the hospital on 05/15/2024 with complaints of black tarry stools and bloody emesis and consulted for JEANIE # Acute kidney injury Likely ATN from GI losses due to drop in blood pressures versus HRS in the setting of decompensated liver disease -Patient is admitted to the hospital with decompensated liver disease with variceal bleeding -Patient developed JEANIE at the time of admission which resolved with IV albumin and octreotide -Patient was downgraded to floors but as the patient is having severe abdominal distention patient was upgraded to ICU with the suspicion of abdominal compartment syndrome from ileus -Patient found to have worsening renal functions with uptrending creatinine from 05/22/2024, Cr 1.4> 05/23, Cr 2.3 > 05/24, Cr 3.4 -Patient found to have adequate urine output as of 05/25/2024 -renal ultrasound showed bilateral renal parenchymal disease -Fractional excretion of sodium is 4.3%, which is suggestive of intrinsic disease, likely ATN in the setting of acute illness Plan -Recommended to give albumin 1 g/kg and continue midodrine for 48 hours -Pending endoscopy later in the day by Dr. Calabrese -Avoid nephrotoxic medications and renally dose medications -Monitor blood pressures and strict urine input/output Patient overall likely to have a poor prognosis in the setting of decompensated liver disease, worsening renal functions, worsening respiratory functions. # Hypernatremia, hyperchloremia Likely from the intravascular dehydration -As of 05/25/2024, sodium is 146, chloride 115 Plan -Recommended to replete intravascular volume depending upon the clinical condition -Continue albumin infusions -Monitor input and output -Continue to monitor electrolytes # High anion gap metabolic acidosis # Lactic acidosis Likely due to combined intravascular dehydration, GI losses and JEANIE. -Started on sodium bicarbonate tablets 650 Mg p.o. twice daily # Hyperphosphatemia -Phosphorus is 5.8 as of 05/24/2024 -Likely due to JEANIE, monitor phosphorus levels #mixed hypovolemic(class 3 hemorrhagic shock) +septic shock-resolved #History of hypertension #History of hyperlipidemia #HFpEF 55 to 60% #Acute GI bleed #History of grade 3 esophageal varices status post banding #History of alcohol use disorder #Cirrhosis #Acute on chronic liver failure #Hyperbilirubinemia #Hyperammonemia #Hypoalbuminemia #Ascites #Abdominal distention -Rest of the medical conditions to be treated as per ICU team Thank you for allowing us to involved in the care of the patient Patient plan of care was discussed with the attending physician, Dr. Michelle Stack, PGY1 Attending Provider Attestation/Addendum Patient seen and examined with resident physician Dr. Kunz. Note reviewed, agree with findings and recommendations. Patient currently seen in ICU. Patient alert and awake although very weak. He had a prolonged hospital course. Worsening decompensated liver cirrhosis with GI bleed from varices, significant elevation in bilirubin, hepatic encephalopathy, hypotension, ascites, hypoalbuminemia, anemia, thrombocytopenia and now with elevated creatinine. Patient clinically looks rather dehydrated. Agree with fluids, octreotide, albumin and midodrine. Currently on TPN. Rate decreased to half. Creatinine continues to be worsening despite volume resuscitation-patient seems to be in hepatorenal syndrome. No family around. My understanding cannot be reached. HRS-prognosis remains poor. Plan of care discussed with ICU team. Not sure if he is a candidate for dialysis. Not a liver transplant candidate at this point . critical care time spent more than 40 minutes regarding plan of care and disease management. Status post banding by Dr. Calabrese. Abdomen seems to be significantly distended. Currently on lactulose for encephalopathy. If no improvement in azotemia-will plan for dialysis tomorrow.
[2024-05-25 16:41] LABS: HIV (1&2) Antibody Rapid Non-Reactive
--- NOTE | 2024-05-25 21:31 | PD.IMPROG ---
Documentation for date of: 05/25/24 Subjective Subjective Interval history: Patient evaluated hemoglobin hematocrit 7.5 and 22.1 Bleeding has slowed down after endoscopic band ligation of the esophageal varices Exam Vital Signs Temp Pulse Resp BP Pulse Ox O2 Del Method O2 Flow Rate 97.3 F 73 18 130/65 95 Room Air 3 05/25/24 16:00 05/25/24 19:50 05/25/24 19:50 05/25/24 19:00 05/25/24 19:50 05/25/24 04:00 05/24/24 20:50 FiO2 30 05/22/24 00:00 Objective Labs 05/25/24 05:10 05/25/24 05:10 Labs: Laboratory Results - last 24 hr 05/14/24 05/25/24 05/25/24 21:46 00:34 05:10 WBC 13.3 H D RBC 2.47 L Hgb 7.9 L 7.5 L Hct 23.5 L 22.1 L MCV 90 MCH 30.4 MCHC 33.9 RDW Std Deviation 66.9 H Plt Count 38 L D Neut % (Auto) 82 H Lymph % (Auto) 9 L [place] % (Auto) 4 Eos % (Auto) 2 Baso % (Auto) 0 Neut # (Auto) 11.0 H Lymph # (Auto) 1.2 [place] # (Auto) 0.5 Eos # (Auto) 0.2 Baso # (Auto) 0.0 Immature Gran # (Auto) 0.36 H Absolute Nucleated RBC 0.03 H Immature Gran % 3 H Nucleated RBC % 0 PT 26.1 H INR 2.5 H APTT > 139.0 H* D Sodium 147 H 146 H Potassium 3.7 3.5 Chloride 117 H 115 H Carbon Dioxide 14.9 L* 15.0 L Anion Gap 15 16 BUN 55 H 65 H Creatinine 3.2 H 3.6 H Estim Creat Clear Calc 23.5 L 20.9 L eGFR 21 L 19 L BUN/Creatinine Ratio 17 18 Glucose 152 H 127 H Calculated Osmolality 310 H 311 H Lactic Acid 2.5 H Calcium 9.6 9.2 Corrected Calcium 10.1 9.9 Phosphorus 5.4 H 5.2 H Magnesium 2.4 Total Bilirubin 32.1 H* D AST 51 H ALT 50 H Alkaline Phosphatase 111 D Ammonia 49 H Total Protein 5.0 L Albumin 3.4 L 3.1 L Globulin 1.9 L Albumin/Globulin Ratio 1.6 Vitamin B12 > 2000 H Folate 22.45 TSH 0.19 L Syphilis Serology Nonreactive HIV 1&2 Antibody Rapid Non-Reactive Misc Test Result Platelets confirmed Crossmatch See Detail 05/25/24 08:57 WBC RBC Hgb Hct MCV MCH MCHC RDW Std Deviation Plt Count Neut % (Auto) Lymph % (Auto) [place] % (Auto) Eos % (Auto) Baso % (Auto) Neut # (Auto) Lymph # (Auto) [place] # (Auto) Eos # (Auto) Baso # (Auto) Immature Gran # (Auto) Absolute Nucleated RBC Immature Gran % Nucleated RBC % PT INR APTT Sodium Potassium Chloride Carbon Dioxide Anion Gap BUN Creatinine Estim Creat Clear Calc eGFR BUN/Creatinine Ratio Glucose Calculated Osmolality Lactic Acid Cancelled Calcium Corrected Calcium Phosphorus Magnesium Total Bilirubin AST ALT Alkaline Phosphatase Ammonia Total Protein Albumin Globulin Albumin/Globulin Ratio Vitamin B12 Folate TSH Syphilis Serology HIV 1&2 Antibody Rapid Misc Test Result Crossmatch Impressions Impression: Esophageal variceal bleeding requiring band ligation Posthemorrhagic anemia Chronic liver disease Hepatorenal syndrome needing dialysis less than 2 the patient is made comfort care Continue supportive care ABG Interpretation ABG results: 05/15/24 05/15/24 05/15/24 08:45 14:25 16:08 ABG pH 7.31 L 7.04 L* D 7.22 L D ABG pCO2 20 L 58 H D 35 D ABG pO2 116 H 330 H D 63 L D ABG HCO3 10 L 16 L 14 L ABG O2 Saturation 98 99 H 89 L ABG Base Excess -15 L -15 L -13 L VBG pH VBG pCO2 VBG pO2 VBG Base Excess 05/15/24 05/16/24 05/16/24 19:03 04:05 05:05 ABG pH 7.27 L 7.43 D 7.48 H ABG pCO2 27 L 56 H D 23 L D ABG pO2 85 D 160 H D 191 H D ABG HCO3 12 L 37 H 17 L ABG O2 Saturation 96 101 H 100 H ABG Base Excess -13 L 11 H -5 L VBG pH VBG pCO2 VBG pO2 VBG Base Excess 05/16/24 05/16/24 05/16/24 11:34 14:20 18:35 ABG pH 7.49 H 7.52 H 7.55 H ABG pCO2 27 L 26 L 25 L ABG pO2 173 H 160 H 201 H D ABG HCO3 21 21 21 ABG O2 Saturation 100 H 100 H 100 H ABG Base Excess -2 -1 0 VBG pH VBG pCO2 VBG pO2 VBG Base Excess 05/16/24 05/17/24 05/19/24 21:53 11:34 05:05 ABG pH 7.55 H 7.54 H 7.44 D ABG pCO2 25 L 26 L 32 ABG pO2 206 H 177 H D 80 L D ABG HCO3 22 22 22 ABG O2 Saturation 100 H 100 H 97 ABG Base Excess 0 0 -2 VBG pH VBG pCO2 VBG pO2 VBG Base Excess 05/20/24 05/22/24 05/23/24 04:55 09:46 08:05 ABG pH 7.43 ABG pCO2 32 ABG pO2 102 D ABG HCO3 21 ABG O2 Saturation 99 H ABG Base Excess -3 VBG pH 7.36 7.42 VBG pCO2 25 L 24 L VBG pO2 120 H 58 D VBG Base Excess -10 L -8 L Assessment & Plan A&P Narrative bacteremia. 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 avoid etoh completely ok to stop rocephin at your discretion. does not seem like endocarditis. if you think that is it, then get an echo and change rocephin to 2 gm iv q24 will check in briefly on fri if we are targeting the bacteremia, I note that pts with liver disease may not handle bacteremia well. also note lulú. may be vanco induced. vanco role absent. will stop it today Time Spent With Patient Time: Total time spent is greater than 50% in coordination of care (as documented) at patient's floor/unit and/or counseling patient: Procedures Arterial Line Size (Gauge): 18
[2024-05-25 23:31] LABS: Chloride, Urine Volume 1150 mL/24hr (600-1800); Potassium, Urine Volume 1150 mL/24hr (600-1800); Sodium, Urine Volume 1150 mL/24hr (600-1800)
[2024-05-25 23:54] LABS: Chloride, 24 hr Urine 88 mEq/24hr (110-250); Chloride,Urine 76.5 mMol/L (55.0-125.0); Potassium, 24hr Urine 49 mEq/24hr (25-125); Potassium,Urine 43 mMol/L (12-62); Sodium,24hr Urine 72 mEq/24hr (40-220); Sodium,Urine 63 mMol/L (20-110)
[2024-05-26] VITALS (22 sets, daily range): BP systolic 96–140; BP diastolic 53–79; PULSE 64–85; RESP 12–21; TEMP 36.2–36.5; O2SAT 93–96
[2024-05-26] MEDS: OCTREOTIDE ACET INJ 1,000 MCG in SODIUM CHLORIDE 0.9% 100 ML 5.1 MCG IV ×2 (02:08→23:44)
[2024-05-26 05:01] LABS: Lactate (Lactic Acid) 1.4 mMol/L (0.4-2.0)
[2024-05-26 05:14] LABS: Basophils % (Auto) 0 % (0-2.5); Eosinophils # (Auto) 0.2 Thou/mm3 (0.0-0.5); Eosinophils % (Auto) 2 % (0-10); Hematocrit 22.3 % (41.0-53.0); Immature Granulocytes % (Auto) 2 % (0-0); Immature Granulocytes Auto 0.17 Thou/mm3 (0.00-0.00); Lymphocytes # (Auto) 0.9 Thou/mm3 (1.0-4.8); Lymphocytes % (Auto) 9 % (10-50); Mean Corpuscular HGB Conc 33.2 g/dl (31.0-37.0); Mean Corpuscular Hemoglobin 29.5 pg (25.0-35.0); Mean Corpuscular Volume 89 fL (80-100); Monocytes # (Auto) 0.5 Thou/mm3 (0.0-0.8); Monocytes % (Auto) 6 % (0-12); Neutrophils # (Auto) 7.7 Thou/mm3 (1.8-7.7); Neutrophils % (Auto) 82 % (37-80); Nucleated Red Blood Cell % 0 /100 WBC (0); RDW Standard Deviation 65.8 fL (35.1-43.9); Red Blood Count 2.51 Miln/mm3 (4.50-5.90); White Blood Count 9.4 Thou/mm3 (3.8-10.6)
[2024-05-26 05:31] LABS: Hemoglobin 7.4 g/dL (13.5-16.0); Platelet Count 31 Thou/mm3 (140-440)
[2024-05-26 05:48] LABS: INR 2.8 (0.9-1.3); Partial Thromboplastin Time 72.8 Seconds (22.0-36.0); Prothrombin Time 28.7 Seconds (9.0-12.2)
[2024-05-26 06:02] LABS: Alanine Aminotransferase 39 U/L (10-49); Albumin, Serum 3.1 gm/dL (3.5-5.0); Albumin/Globulin Ratio 1.4 (1.2-2.2); Alkaline Phosphatase 106 U/L (46-116); Anion Gap 15 (7-16); Aspartate Amino Transferase 54 U/L (0-34); BUN/Creatinine Ratio 16 Ratio (12-20); Blood Urea Nitrogen 62 mg/dL (9-23); Calcium 9.2 mg/dL (8.3-10.6); Calcium (Corrected) 9.9 mg/dL (8.5-10.1); Carbon Dioxide 15.2 mMol/L (20.0-31.0); Chloride 117 mMol/L (98-107); Creatinine (Component) 3.8 mg/dL (0.6-1.3); Estimated Creatinine Clearance 19.6 mL/min (>60); Globulin 2.2 gm/dL (2.3-3.5); Glucose 107 mg/dL (74-106); Osmolality,Calculated 310 (275-295); Potassium 3.2 mMol/L (3.4-5.1); Sodium 147 mMol/L (136-145); Total Protein 5.3 gm/dL (5.7-8.2); eGFR 17 See Note
[2024-05-26] MEDS: POTASSIUM CHL 10 mEq IVPB 10 MEQ/100 ML BAG 100 MEQ IV (07:32)
[2024-05-26] MEDS: POTASSIUM CHL 10 mEq IVPB 10 MEQ/100 ML BAG 75 MEQ IV ×3 (09:05→13:20)
[2024-05-26] MEDS: PANTOPRAZOLE INJ 40 MG VIAL 80 MG IVP ×2 (09:06→21:32)
[2024-05-26] MEDS: ALBUMIN HUMAN 25% IVPB 25 GM/100 ML BTL IV (09:06)
--- NOTE | 2024-05-26 09:51 | ESPR_ITS ---
<Statement entered by Alison Gonzalez MD - 05/27/24 13:57> TOTAL TIME: 45MINUTES ON DIRECT MEDICAL CARE, MANAGEMENT - COORDINATION AND COUNSELING > 50% OF TOTAL TIME I saw and evaluated the patient. I reviewed the resident?s note and agree with findings and plan as documented in the resident?s note. Patient's encephalopathy is improving, synthetic function of the liver also thankfully seems to be improving. Urine output is increased and potassium has been clearing. Suspect there will be an improvement in GFR soon to follow. Hemodynamics remain acceptable and there is no further evidence of esophageal bleeding. Complete octreotide continue Protonix. He is stable to transfer out of ICU Documentation for date of: 05/26/24 Subjective Subjective Interval history: The patient is a 59-year-old male with a past medical history significant for alcohol use disorder, esophageal varices (status post banding), hypertension, hyperlipidemia, type 2 diabetes, HFpEF with an ejection fraction of 55-60%, and biliary dyskinesia. He was admitted to the hospital on 05/15/2024 following an episode of bloody emesis. On presentation, the patient was found to be encephalopathic and was unable to provide a clear history. He mentioned a history of multiple hospital admissions due to severe alcohol withdrawal. Initial Presentation: Upon admission, the patient?s blood pressure was on the lower end, but the MAP remained above 65 mmHg, which was maintained. The patient was also noted to have acute kidney injury, likely due to acute blood loss anemia. Laboratory results revealed lactic acidosis and hyperammonemia, which further complicated his clinical picture. During his hospital stay, the patient's condition deteriorated significantly. He developed severe anemia and continued to experience significant gastrointestina losses. A consultation with Dr. Liu was obtained, and the patient underwent EGD twice. The EGD revealed profuse bleeding, which was successfully managed with banding of the varices. Despite this, the patient?s hemoglobin dropped below 6 g/dL, and he required multiple units of packed red blood cells for transfusion. At one point, the patient became increasingly encephalopathic, and airway protection was required, necessitating intubation. Additionally patient blood pressure was on the low side requiring pressor support.patient underwent to hemorrhagic shock requiring multiple blood transfusion and vasopressors to maintain the blood pressure. Initially, the plan was to transfer the patient to a high-care facility for a TIPS procedure. However, due to his MELD-Na score and his unstable condition, many institutions declined the transfer. ICU Course: While in the ICU, the patient?s condition showed some improvement. He was successfully extubated, weaned off from pressors and his acute kidney injury resolved. Following the banding procedure, his hemoglobin stabilized, and hyperammonemia resolved with lactulose treatment. He was safely downgraded to the floor. 05/23/2024 Today, the ICU team was consulted due to concerns about abdominal compartment syndrome. Bladder pressures were measured and were found to be greater than 20 mmHg, raising concerns. Initially, a paracentesis was planned, but bedside ultrasound did not reveal significant ascitic fluid. Additionally, an abdominal X-ray showed a mild ileus, which was concerning for a small bowel obstruction . Currently, the patient is saturating in room air and is not complaining of any abdominal distension or pain. An NG tube was placed to decompress the bowel, and the gastroenterology team is now involved. GI will evaluate the patient to determine if a rectal tube will be needed for further bowel decompression. 05/24/24:Patient was seen and examined at bedside. . Patient bladder pressure in a morning was 17, had 250 cc of urine output and 2 BM. labs revieled worsening kidney function, creatinine went up from 2.3 to 3.4, BUN is 52, AG is 17, Lactic acid will be checked, patient also devoloped respiratory alkalosis most likely in a setting of tachipnea. Concern of hepatorenal syndrom, ICU team was consulted due to concern of abdominal compartment syndrome and progressively worsening kidney function. Patient is a high risk of aspiration and severe GI bleed, patient will be upgraded to ICU for close monitoring of hemodynamics. 05/25/24: The patient was evaluated and examined in the ICU. No acute events occurred overnight. Yesterday, the patient underwent an EGD, which revealed grade 3 esophageal varices four bandings was placed The patient will continue on an octreotide drip and PPI therapy Over the last 24 hours, the patient had a urine output of 1200 mL. However, the renal panel indicates worsening kidney function with a creatinine level of 3.6 and a BUN of 65, both of which have risen compared to yesterday. Lactic acid is elevated at 2.5..Nephrology has been consulted, and we will continue to monitor renal function closely. Ultrasound revealed parenchymal scarring. We will initiate a goals of care discussion with the family to evaluate the appropriateness of further interventions, including hemodialysis, given the patient's fulminant liver failure and overall prognosis. The coagulation panel shows worsening liver synthetic function: APTT is 139 seconds, INR is 2.5, and PTT is 26.1. The ammonia level has decreased to 46. On evaluation today, the patient was alert and oriented to person and place, but still remains somewhat confused and not fully oriented. Lactulose is being administered per rectum, and the patient had one bowel movement today. The patient is continuing treatment with albumin, octreotide, and midodrine for hepatorenal syndrome. Attempts to contact the family have been unsuccessful. Earlier today, we spoke with a friend who is not the decision-maker. The social staff worker is involved, and we are continuing efforts to reach the patient?s son, who is the primary decision-maker. We will continue efforts to reach the decision-maker and, once in contact, will discuss the clinical prognosis, the potential risks and benefits of aggressive treatments, and future care planning. 05/26/2024 Patient was seen and examined at bedside. No acute overnight event. Patient is having adequate urine output, upon my evaluation patient was AO x 2, however appears better alert and focused. Was appropriately answering some of the questions. Renal panel appears to be worsening, however urine output is still the same. 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 Still pending goals of care discussion with the family to evaluate appropriateness of further intervention, including hemodialysis given the patient's liver failure and overall poor prognosis. Coagulation panel showed some improvement, APTT decreased, lactulose was held yesterday, patient passed swallow evaluation today, will be started on clear liquid diet. Continue albumin, consider switching octreotide to subacute after discussing with GI, continue midodrine. Plan is to continue attempts to contact the family. Social workers are involved, will continue efforts to reach the patient's son who is the primary decision-maker. Exam Vital Signs Temp Pulse Resp BP Pulse Ox O2 Del Method O2 Flow Rate 97.7 F 74 16 124/67 95 Room Air 3 05/26/24 08:00 05/26/24 08:00 05/26/24 08:00 05/26/24 08:00 05/26/24 08:00 05/26/24 08:00 05/24/24 20:50 FiO2 30 05/22/24 00:00 Narrative Exam GENERAL:Severly icteric Ill looking man, AxOx2 HEENT: Normocephalic, atraumatic. Pupils are equal and reactive. icteric sclera, teeth loose. NECK: Supple, nontender, no JVD CARDIOVASCULAR: Heart regular rhythm & rate. S1/S2. no murmur or gallop rub or extra beats. LUNGS:bilaterally expiratory wheezing improved, with symmetrical chest rise. No crackles. No intercostal subcostal retraction. No rales and no rhonchi. ABDOMEN: Distended Active and normal bowel sounds. EXTREMITIES/skin : Icteric , small necrotic area around right big toe . Objective Labs 05/27/24 05:15 05/27/24 05:15 Labs: Laboratory Results - last 24 hr 05/24/24 05/24/24 05/24/24 18:00 18:00 18:00 WBC RBC Hgb Hct MCV MCH MCHC RDW Std Deviation Plt Count Neut % (Auto) Lymph % (Auto) Brooke % (Auto) Eos % (Auto) Baso % (Auto) Neut # (Auto) Lymph # (Auto) Brooke # (Auto) Eos # (Auto) Baso # (Auto) Immature Gran # (Auto) Absolute Nucleated RBC Immature Gran % Nucleated RBC % PT INR APTT Sodium Potassium Chloride Carbon Dioxide Anion Gap BUN Creatinine Estim Creat Clear Calc eGFR BUN/Creatinine Ratio Glucose Calculated Osmolality Lactic Acid Calcium Corrected Calcium Total Bilirubin AST ALT Alkaline Phosphatase Total Protein Albumin Globulin Albumin/Globulin Ratio Ur Random Creatinine Cancelled Ur Random Sodium Cancelled Ur Random Potassium Cancelled Ur Random Chloride Cancelled Urine Total Volume 1150 1150 1150 Ur Sodium mmol/L 63 Ur Sodium 24 Hour 72 Ur Potassium mmol/L 43 Ur Potassium 24 Hour 49 Ur Chloride mmol/L 76.5 Ur Chloride 24 Hour 88 L HIV 1&2 Antibody Rapid 05/25/24 05/25/24 05/26/24 05:10 08:57 04:45 WBC 9.4 RBC 2.51 L Hgb 7.4 L Hct 22.3 L MCV 89 MCH 29.5 MCHC 33.2 RDW Std Deviation 65.8 H Plt Count 31 L Neut % (Auto) 82 H Lymph % (Auto) 9 L Brooke % (Auto) 6 Eos % (Auto) 2 Baso % (Auto) 0 Neut # (Auto) 7.7 Lymph # (Auto) 0.9 L Brooke # (Auto) 0.5 Eos # (Auto) 0.2 Baso # (Auto) 0.0 Immature Gran # (Auto) 0.17 H Absolute Nucleated RBC 0.00 Immature Gran % 2 H Nucleated RBC % 0 PT 28.7 H INR 2.8 H APTT 72.8 H D Sodium 147 H Potassium 3.2 L Chloride 117 H Carbon Dioxide 15.2 L Anion Gap 15 BUN 62 H Creatinine 3.8 H Estim Creat Clear Calc 19.6 L eGFR 17 L BUN/Creatinine Ratio 16 Glucose 107 H Calculated Osmolality 310 H Lactic Acid Cancelled 1.4 Calcium 9.2 Corrected Calcium 9.9 Total Bilirubin 31.0 H* D AST 54 H ALT 39 Alkaline Phosphatase 106 Total Protein 5.3 L Albumin 3.1 L Globulin 2.2 L Albumin/Globulin Ratio 1.4 Ur Random Creatinine Ur Random Sodium Ur Random Potassium Ur Random Chloride Urine Total Volume Ur Sodium mmol/L Ur Sodium 24 Hour Ur Potassium mmol/L Ur Potassium 24 Hour Ur Chloride mmol/L Ur Chloride 24 Hour HIV 1&2 Antibody Rapid Non-Reactive ABG Interpretation ABG results: 05/15/24 05/15/24 05/15/24 08:45 14:25 16:08 ABG pH 7.31 L 7.04 L* D 7.22 L D ABG pCO2 20 L 58 H D 35 D ABG pO2 116 H 330 H D 63 L D ABG HCO3 10 L 16 L 14 L ABG O2 Saturation 98 99 H 89 L ABG Base Excess -15 L -15 L -13 L VBG pH VBG pCO2 VBG pO2 VBG Base Excess 05/15/24 05/16/24 05/16/24 19:03 04:05 05:05 ABG pH 7.27 L 7.43 D 7.48 H ABG pCO2 27 L 56 H D 23 L D ABG pO2 85 D 160 H D 191 H D ABG HCO3 12 L 37 H 17 L ABG O2 Saturation 96 101 H 100 H ABG Base Excess -13 L 11 H -5 L VBG pH VBG pCO2 VBG pO2 VBG Base Excess 05/16/24 05/16/24 05/16/24 11:34 14:20 18:35 ABG pH 7.49 H 7.52 H 7.55 H ABG pCO2 27 L 26 L 25 L ABG pO2 173 H 160 H 201 H D ABG HCO3 21 21 21 ABG O2 Saturation 100 H 100 H 100 H ABG Base Excess -2 -1 0 VBG pH VBG pCO2 VBG pO2 VBG Base Excess 05/16/24 05/17/24 05/19/24 21:53 11:34 05:05 ABG pH 7.55 H 7.54 H 7.44 D ABG pCO2 25 L 26 L 32 ABG pO2 206 H 177 H D 80 L D ABG HCO3 22 22 22 ABG O2 Saturation 100 H 100 H 97 ABG Base Excess 0 0 -2 VBG pH VBG pCO2 VBG pO2 VBG Base Excess 05/20/24 05/22/24 05/23/24 04:55 09:46 08:05 ABG pH 7.43 ABG pCO2 32 ABG pO2 102 D ABG HCO3 21 ABG O2 Saturation 99 H ABG Base Excess -3 VBG pH 7.36 7.42 VBG pCO2 25 L 24 L VBG pO2 120 H 58 D VBG Base Excess -10 L -8 L Quality Measures Quality Measures VTE prophylaxis Assessment & Plan Assessment Current Active Medications: Generic Name Dose Route Start Last Admin Trade Name Freq PRN Reason Stop Dose Admin Albuterol/Ipratropium 3 ml 05/20/24 15:53 05/25/24 10:48 Albuterol/Ipratropium (Duoneb) Rt Irina 3 Ml Nebu INH 06/19/24 15:52 3 ml Q6HRRT PRN Administration SHORTNESS OF BREATH OR WHEEZE Cholestyramine Resin 1 pkt 05/18/24 21:00 05/25/24 19:21 Cholestyramine/Sucrose 1 Pkt Ea PO 06/17/24 20:59 Not Given BID SREE Dextrose 25 ml 05/15/24 01:22 Dextrose 50%-Water Inj 50 Ml Syringe IV 06/14/24 01:21 Q15MIN PRN BG 50-70 responsive npo pt Dextrose 50 ml 05/15/24 01:22 Dextrose 50%-Water Inj 50 Ml Syringe IV 06/14/24 01:21 Q15MIN PRN BG <50 OR BG <70 & pt unresponsive Glucagon 1 mg 05/15/24 01:22 Glucagon Inj 1 Mg Vial IM Q15MIN PRN BG <70, and no IV access Albumin Human 25 gm in 100 mls @ 100 mls/hr 05/26/24 09:00 05/26/24 09:06 Albuminar-25 Ivpb IV 05/29/24 08:59 100 mls/hr QDAY SREE Administration Protocol Octreotide Acetate 1,000 mcg/ 102 mls @ 5.1 mls/hr 05/24/24 09:23 05/26/24 02:08 Sodium Chloride IV 05/29/24 09:23 50 mcg/hr .Q20H SREE 5.1 mls/hr Administration Protocol 50 MCG/HR Ceftriaxone Sodium/Dextrose 2 gm in 50 mls @ 100 mls/hr 05/25/24 09:00 05/25/24 10:43 Rocephin/D5w 2gm IV 06/01/24 08:59 100 mls/hr QDAY SREE Administration Fat Emulsion Intravenous 500 mls @ 32 mls/hr 05/24/24 18:00 05/25/24 08:24 Intralipid 20% Iv IV 06/23/24 17:59 16 mls/hr [id number]@1800 SREE Infusion Multivitamins/Minerals 10 ml/ 2,030 mls @ 27.5 mls/hr 05/25/24 18:13 05/25/24 18:52 Potassium Acetate 40 meq/ IV 05/26/24 17:59 27.5 mls/hr Amino Acids QDAY@1800 SREE Administration Potassium Chloride 10 meq in 100 mls @ 100 mls/hr 05/26/24 06:54 05/26/24 09:05 Kcl Ivpb IV 05/26/24 10:53 75 mls/hr Q1H SREE Administration Insulin Human Lispro 0 unit 05/25/24 00:00 05/26/24 05:20 Insulin Lispro (Admelog) 1 Unit/0.01 Ml Unit SC 06/24/24 00:00 Not Given Q6HR SREE Protocol Lactulose 200 gm 05/23/24 14:00 05/25/24 14:24 Lactulose Syrup 10 Gm/15 Ml HI 06/22/24 13:59 Not Given TID [facility] Protocol Midodrine 10 mg 05/24/24 14:00 05/26/24 05:16 Midodrine 5 Mg Tablet PO 06/23/24 13:59 Not Given TID SREE Ondansetron HCl 4 mg 05/15/24 01:17 05/15/24 05:46 Ondansetron Inj 2 Mg/Ml Inj 2 Ml IV 06/14/24 01:16 4 mg Q6H PRN Administration NAUSEA OR VOMITING Protocol Pantoprazole Sodium 80 mg 05/15/24 21:00 05/26/24 09:06 Pantoprazole Inj 40 Mg Vial IVP 06/14/24 20:59 80 mg BID SREE Administration Rifaximin 550 mg 05/22/24 09:00 05/25/24 19:21 Rifaximin 550 Mg Tablet PO 05/29/24 08:59 Not Given BID SREE Simethicone 80 mg 05/22/24 18:00 05/26/24 05:16 Simethicone 80 Mg Chew PO 06/21/24 17:59 Not Given QID SREE Sodium Bicarbonate 650 mg 05/22/24 09:00 05/25/24 19:24 Sodium Bicarbonate 650 Mg Tablet PO 06/21/24 08:59 Not Given BID SREE Plan The patient is a 59-year-old male with a past medical history significant for alcohol use disorder, esophageal varices (status post banding), hypertension, hyperlipidemia, type 2 diabetes, HFpEF with an ejection fraction of 55-60%, and biliary dyskinesia. He was admitted to the hospital on 05/15/2024 following an episode of bloody emesis. Patient was upgraded to ICU due to hemorrhagic shock requiring pressors and intubation for airway protection. ICU team was consulted due to concern of abdominal compartment syndrome and progressively worsening kidney function. Patient is a high risk of aspiration and severe GI bleed, patient will be upgraded to ICU for close monitoring of hemodynamics. 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 Patient today upon my evaluation AOx2, more awake and focused today ? CT head negative ? Ammonia down trended ? Patient was on lactulose HI, hold today ? Rifaximin 550 twice daily ? Frequent mental status reassessment Respiratory Patient saturated on room air Respiratory alkalosis in the setting of tachypnea Patient completed antibiotic for pneumonia seen on the chest x-ray [facility] #mixed hypovolemic(class 3 hemorrhagic shock) +septic shock-resolved Class III hemorrhage involves a 30 to 40 percent blood volume loss, resulting in a significant drop in blood pressure and changes in mental status.He has received massive blood transfusion, calcium was replaced #History of hypertension #History of hyperlipidemia #HFpEF 55 to 60% Currently blood pressure is under control We will discontinue hydralazine GI #Acute GI bleed #History of grade 3 esophageal varices status post banding #History of alcohol use disorder Patient was in ICU until 05/19/2024 due to hemorrhagic shock, received multiple blood products transfusion. 05/17:Dr. Liu did EGD:Grade 2 esophageal varices, banded, erythematous mucosa in the stomach. Diffuse mucosal oozing of blood in the setting of portal hypertension with blood clots in the proximal body of the stomach, underlying surface could not be evaluated for fundic gastric varices. Per GI recommended to continue octreotide infusion and Protonix, support with blood products 05/24/2024: Patient had bloody NG tube output, about 300 mL was removed. 05/05/2024: Patient had EGD yesterday, performed by Dr. Liu, grade 3 esophageal varices was noted, status post 4 banding -Continue PPI -octreotide -Will try to keep patient normotensive -Dr. Liu is on board, recommendations appreciated -passed swallow and will be started on clear liquid diet #Cirrhosis #Acute on chronic fulminant liver failure #Hyperbilirubinemia #Hyperammonemia #Hypoalbuminemia #Ascites Bedside ultrasound revealed ascites, mild/to moderate, was likely causing compartment syndrome. Patient at some point will need paracentesis, currently he is not stable enough, we will address GI bleed first, we will monitor the patient for now. -Continue octreotide -Patient started on albumin -started midodrin 10 TID -Continue ceftriaxone -Attempt was made to transfer patient for TIPS, however transfer was declined from multiple institutions due to high risk #Abdominal distention Concern for intra-abdominal compartment syndrome ICU team was consulted due to concerns about abdominal compartment syndrome that can be contributing factor for developing JEANIE. Bladder pressures were measured and were found to be greater than 20 mmHg, raising concerns. Initially, a paracentesis was planned, but bedside ultrasound did not reveal significant ascitic fluid. Additionally, an abdominal X-ray showed a mild ileus, which was concerning for a small bowel obstruction . Currently, the patient is saturating in room air and is not complaining of any abdominal distension or pain. An NG tube was placed to decompress the bowel, Repeat bladder pressure was found to be 13 after NG tube placement. -we will continue monitor -monitor UO Renal #Prerenal JEANIE versus ATN #Fluctuating hypertension that can be causing severe renal function #Concern for hepatorenal, less likely Patient noticed to have worsening renal function, decreased urine output. FeNA was calculated, more consistent with ATN. renal US showed parenchymal scar formation -Midodrine 10 3 times daily -Albumin 1 g/kg for the first 2 days, then patient will be transition to 25 g daily -Octreotide -Sanchez is in place -Avoid nephrotoxic agents -nephrology is on board -Renally dose medication -Continue to monitor #AGMA resolved #JEANIE prerenal in a setting of dehidration /GI loss versus Hepatorenal #ATN 05/24/24: AG is 17, with corrected albumin 22.25, delta/delta 0.9 suggestive AGMA most likely in a setting of lactic acidosis Most likely in the setting of renal failure Delta gap below 1 Compensated with respiratory alkalosis 05/26/24: Nephrology evaluated the patient, at bedside, and decision was made to continue monitoring urine output, continue IVF, will have goals of care discussion with the son who is a decision maker to discuss in depth the clinical course, future plan including the need of hemodialysis however patient prognosis still very poor given the fulminant liver failure. -Nephrology is on board, will follow-up with recommendations #Hyperchloremic hypernatremia improving Could be secondary due to dehydration Patient currently is receiving [id number] 100 cc/h Patient started on PPN ENDO #DM2 -A1c 6.7% on 04/2024 -ISS - Hypoglycemia protocol ordered Hematology #Thrombocytopenia #Acute blood loss anemia -H&H monitoring -Continue close monitor, transfuse if hemoglobin less than 7 ID GPC/Streptococcus anginosus Group bacteremia on culture that was drawn 05/14/2024, ID is on board, patient received Broad-spectrum antibiotics, vancomycin was stopped by ID, currently is on ceftriaxone Echo did not reveal any vegetation, EF of 55 to 60%, RVSP 35 Repeat blood culture is negative Hospital management: Disposition: ICU Fluids: none Diet:clear liquid diet Lines: PIV DVT prophylaxis: SCDs GI prophylaxis: pantoprazole 80 mg IV BID Sanchez: placed CODE STATUS: full code Patient care was discussed with attending physician Dr. Lisa Banks MD PGY-2
--- NOTE | 2024-05-26 10:35 | PD.IDPROG ---
Subjective Subjective Interval history: dictation pending. was done and apparently lost. or just not yet done. repeats neg. rocephin dose increased. source presumably his liver disease. Exam Vital Signs Temp Pulse Resp BP Pulse Ox O2 Del Method O2 Flow Rate 97.7 F 74 16 124/67 95 Room Air 3 05/26/24 08:00 05/26/24 08:00 05/26/24 08:00 05/26/24 08:00 05/26/24 08:00 05/26/24 08:00 05/24/24 20:50 FiO2 30 05/22/24 00:00 Narrative Exam on rocephin for strep bacteremia. reasonable. Objective - Internal Medicine Labs 05/26/24 04:45 05/26/24 04:45 Labs: Laboratory Results - last 24 hr 05/24/24 05/24/24 05/24/24 18:00 18:00 18:00 WBC RBC Hgb Hct MCV MCH MCHC RDW Std Deviation Plt Count Neut % (Auto) Lymph % (Auto) [place] % (Auto) Eos % (Auto) Baso % (Auto) Neut # (Auto) Lymph # (Auto) [place] # (Auto) Eos # (Auto) Baso # (Auto) Immature Gran # (Auto) Absolute Nucleated RBC Immature Gran % Nucleated RBC % PT INR APTT Sodium Potassium Chloride Carbon Dioxide Anion Gap BUN Creatinine Estim Creat Clear Calc eGFR BUN/Creatinine Ratio Glucose Calculated Osmolality Lactic Acid Calcium Corrected Calcium Total Bilirubin AST ALT Alkaline Phosphatase Total Protein Albumin Globulin Albumin/Globulin Ratio Ur Random Creatinine Cancelled Ur Random Sodium Cancelled Ur Random Potassium Cancelled Ur Random Chloride Cancelled Urine Total Volume 1150 1150 1150 Ur Sodium mmol/L 63 Ur Sodium 24 Hour 72 Ur Potassium mmol/L 43 Ur Potassium 24 Hour 49 Ur Chloride mmol/L 76.5 Ur Chloride 24 Hour 88 L HIV 1&2 Antibody Rapid 05/25/24 05/26/24 05:10 04:45 WBC 9.4 RBC 2.51 L Hgb 7.4 L Hct 22.3 L MCV 89 MCH 29.5 MCHC 33.2 RDW Std Deviation 65.8 H Plt Count 31 L Neut % (Auto) 82 H Lymph % (Auto) 9 L [place] % (Auto) 6 Eos % (Auto) 2 Baso % (Auto) 0 Neut # (Auto) 7.7 Lymph # (Auto) 0.9 L [place] # (Auto) 0.5 Eos # (Auto) 0.2 Baso # (Auto) 0.0 Immature Gran # (Auto) 0.17 H Absolute Nucleated RBC 0.00 Immature Gran % 2 H Nucleated RBC % 0 PT 28.7 H INR 2.8 H APTT 72.8 H D Sodium 147 H Potassium 3.2 L Chloride 117 H Carbon Dioxide 15.2 L Anion Gap 15 BUN 62 H Creatinine 3.8 H Estim Creat Clear Calc 19.6 L eGFR 17 L BUN/Creatinine Ratio 16 Glucose 107 H Calculated Osmolality 310 H Lactic Acid 1.4 Calcium 9.2 Corrected Calcium 9.9 Total Bilirubin 31.0 H* D AST 54 H ALT 39 Alkaline Phosphatase 106 Total Protein 5.3 L Albumin 3.1 L Globulin 2.2 L Albumin/Globulin Ratio 1.4 Ur Random Creatinine Ur Random Sodium Ur Random Potassium Ur Random Chloride Urine Total Volume Ur Sodium mmol/L Ur Sodium 24 Hour Ur Potassium mmol/L Ur Potassium 24 Hour Ur Chloride mmol/L Ur Chloride 24 Hour HIV 1&2 Antibody Rapid Non-Reactive ABG Interpretation ABG results: 05/15/24 05/15/24 05/15/24 08:45 14:25 16:08 ABG pH 7.31 L 7.04 L* D 7.22 L D ABG pCO2 20 L 58 H D 35 D ABG pO2 116 H 330 H D 63 L D ABG HCO3 10 L 16 L 14 L ABG O2 Saturation 98 99 H 89 L ABG Base Excess -15 L -15 L -13 L VBG pH VBG pCO2 VBG pO2 VBG Base Excess 05/15/24 05/16/24 05/16/24 19:03 04:05 05:05 ABG pH 7.27 L 7.43 D 7.48 H ABG pCO2 27 L 56 H D 23 L D ABG pO2 85 D 160 H D 191 H D ABG HCO3 12 L 37 H 17 L ABG O2 Saturation 96 101 H 100 H ABG Base Excess -13 L 11 H -5 L VBG pH VBG pCO2 VBG pO2 VBG Base Excess 05/16/24 05/16/24 05/16/24 11:34 14:20 18:35 ABG pH 7.49 H 7.52 H 7.55 H ABG pCO2 27 L 26 L 25 L ABG pO2 173 H 160 H 201 H D ABG HCO3 21 21 21 ABG O2 Saturation 100 H 100 H 100 H ABG Base Excess -2 -1 0 VBG pH VBG pCO2 VBG pO2 VBG Base Excess 05/16/24 05/17/24 05/19/24 21:53 11:34 05:05 ABG pH 7.55 H 7.54 H 7.44 D ABG pCO2 25 L 26 L 32 ABG pO2 206 H 177 H D 80 L D ABG HCO3 22 22 22 ABG O2 Saturation 100 H 100 H 97 ABG Base Excess 0 0 -2 VBG pH VBG pCO2 VBG pO2 VBG Base Excess 05/20/24 05/22/24 05/23/24 04:55 09:46 08:05 ABG pH 7.43 ABG pCO2 32 ABG pO2 102 D ABG HCO3 21 ABG O2 Saturation 99 H ABG Base Excess -3 VBG pH 7.36 7.42 VBG pCO2 25 L 24 L VBG pO2 120 H 58 D VBG Base Excess -10 L -8 L Assessment & Plan A&P Narrative bacteremia. 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 avoid etoh completely does not seem like endocarditis. so may go to po Friday will check in briefly on Friday if we are targeting the bacteremia, I note that pts with liver disease may not handle bacteremia well. Time Spent With Patient Time: Total time spent is greater than 50% in coordination of care (as documented) at patient's floor/unit and/or counseling patient:
[2024-05-26 10:47] LABS: Slide Review Platelets confirmed
[2024-05-26] MEDS: CHOLESTYRAMINE/SUCROSE 1 PKT EA PO ×2 (10:49→21:32)
[2024-05-26] MEDS: rifaximin 550 MG TABLET PO ×2 (10:49→21:35)
[2024-05-26] MEDS: SODIUM BICARBONATE 650 MG TABLET PO ×2 (10:50→21:35)
[2024-05-26] MEDS: cefTRIAXone/D5w 2gm 2 GM/50 ML BAG IV (10:50)
[2024-05-26] MEDS: SPIRONOLACTONE 25 MG TABLET 100 MG PO (10:51)
[2024-05-26] MEDS: SIMETHICONE 80 MG CHEW PO ×3 (11:54→21:35)
--- NOTE | 2024-05-26 12:29 | PC.SS ---
GRIP attempted phone contact with patient?s son, Benjamin Villarreal Jr ; to schedule goals of care.? No response, GRIP left voicemail.
--- NOTE | 2024-05-26 12:32 | PC.SS ---
TESTING SPECIALIST conducted phone contact with patient's son, Yuri Villarreal ; to discuss attempts to conduct phone contact with brother, Benjamin Haro's son, Yuri; to reach out to brother (Benjamin Jordan) and inform of need to contact TESTING SPECIALIST.
--- NOTE | 2024-05-26 13:02 | PD.IMPROG ---
Documentation for date of: 05/26/24 Exam Vital Signs Temp Pulse Resp BP Pulse Ox O2 Del Method O2 Flow Rate 97.2 F 68 21 H 136/71 H 95 Room Air 3 05/26/24 12:00 05/26/24 12:00 05/26/24 12:00 05/26/24 12:00 05/26/24 12:00 05/26/24 12:00 05/24/24 20:50 FiO2 30 05/22/24 00:00 Objective Labs 05/26/24 04:45 05/26/24 04:45 Labs: Laboratory Results - last 24 hr 05/24/24 05/24/24 05/24/24 18:00 18:00 18:00 WBC RBC Hgb Hct MCV MCH MCHC RDW Std Deviation Plt Count Neut % (Auto) Lymph % (Auto) [place] % (Auto) Eos % (Auto) Baso % (Auto) Neut # (Auto) Lymph # (Auto) [place] # (Auto) Eos # (Auto) Baso # (Auto) Immature Gran # (Auto) Absolute Nucleated RBC Immature Gran % Nucleated RBC % PT INR APTT Sodium Potassium Chloride Carbon Dioxide Anion Gap BUN Creatinine Estim Creat Clear Calc eGFR BUN/Creatinine Ratio Glucose Calculated Osmolality Lactic Acid Calcium Corrected Calcium Total Bilirubin AST ALT Alkaline Phosphatase Total Protein Albumin Globulin Albumin/Globulin Ratio Ur Random Creatinine Cancelled Ur Random Sodium Cancelled Ur Random Potassium Cancelled Ur Random Chloride Cancelled Urine Total Volume 1150 1150 1150 Ur Sodium mmol/L 63 Ur Sodium 24 Hour 72 Ur Potassium mmol/L 43 Ur Potassium 24 Hour 49 Ur Chloride mmol/L 76.5 Ur Chloride 24 Hour 88 L HIV 1&2 [facility] Result 05/25/24 05/26/24 05:10 04:45 WBC 9.4 RBC 2.51 L Hgb 7.4 L Hct 22.3 L MCV 89 MCH 29.5 MCHC 33.2 RDW Std Deviation 65.8 H Plt Count 31 L Neut % (Auto) 82 H Lymph % (Auto) 9 L [place] % (Auto) 6 Eos % (Auto) 2 Baso % (Auto) 0 Neut # (Auto) 7.7 Lymph # (Auto) 0.9 L [place] # (Auto) 0.5 Eos # (Auto) 0.2 Baso # (Auto) 0.0 Immature Gran # (Auto) 0.17 H Absolute Nucleated RBC 0.00 Immature Gran % 2 H Nucleated RBC % 0 PT 28.7 H INR 2.8 H APTT 72.8 H D Sodium 147 H Potassium 3.2 L Chloride 117 H Carbon Dioxide 15.2 L Anion Gap 15 BUN 62 H Creatinine 3.8 H Estim Creat Clear Calc 19.6 L eGFR 17 L BUN/Creatinine Ratio 16 Glucose 107 H Calculated Osmolality 310 H Lactic Acid 1.4 Calcium 9.2 Corrected Calcium 9.9 Total Bilirubin 31.0 H* D AST 54 H ALT 39 Alkaline Phosphatase 106 Total Protein 5.3 L Albumin 3.1 L Globulin 2.2 L Albumin/Globulin Ratio 1.4 Ur Random Creatinine Ur Random Sodium Ur Random Potassium Ur Random Chloride Urine Total Volume Ur Sodium mmol/L Ur Sodium 24 Hour Ur Potassium mmol/L Ur Potassium 24 Hour Ur Chloride mmol/L Ur Chloride 24 Hour HIV 1&2 Antibody Rapid Non-Reactive Misc Test Result Platelets confirmed ABG Interpretation ABG results: 05/15/24 05/15/24 05/15/24 08:45 14:25 16:08 ABG pH 7.31 L 7.04 L* D 7.22 L D ABG pCO2 20 L 58 H D 35 D ABG pO2 116 H 330 H D 63 L D ABG HCO3 10 L 16 L 14 L ABG O2 Saturation 98 99 H 89 L ABG Base Excess -15 L -15 L -13 L VBG pH VBG pCO2 VBG pO2 VBG Base Excess 05/15/24 05/16/24 05/16/24 19:03 04:05 05:05 ABG pH 7.27 L 7.43 D 7.48 H ABG pCO2 27 L 56 H D 23 L D ABG pO2 85 D 160 H D 191 H D ABG HCO3 12 L 37 H 17 L ABG O2 Saturation 96 101 H 100 H ABG Base Excess -13 L 11 H -5 L VBG pH VBG pCO2 VBG pO2 VBG Base Excess 05/16/24 05/16/24 05/16/24 11:34 14:20 18:35 ABG pH 7.49 H 7.52 H 7.55 H ABG pCO2 27 L 26 L 25 L ABG pO2 173 H 160 H 201 H D ABG HCO3 21 21 21 ABG O2 Saturation 100 H 100 H 100 H ABG Base Excess -2 -1 0 VBG pH VBG pCO2 VBG pO2 VBG Base Excess 05/16/24 05/17/24 05/19/24 21:53 11:34 05:05 ABG pH 7.55 H 7.54 H 7.44 D ABG pCO2 25 L 26 L 32 ABG pO2 206 H 177 H D 80 L D ABG HCO3 22 22 22 ABG O2 Saturation 100 H 100 H 97 ABG Base Excess 0 0 -2 VBG pH VBG pCO2 VBG pO2 VBG Base Excess 05/20/24 05/22/24 05/23/24 04:55 09:46 08:05 ABG pH 7.43 ABG pCO2 32 ABG pO2 102 D ABG HCO3 21 ABG O2 Saturation 99 H ABG Base Excess -3 VBG pH 7.36 7.42 VBG pCO2 25 L 24 L VBG pO2 120 H 58 D VBG Base Excess -10 L -8 L Assessment & Plan A&P Narrative bacteremia. 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 avoid etoh completely does not seem like endocarditis. so may go to po Friday will check in briefly on Friday if we are targeting the bacteremia, I note that pts with liver disease may not handle bacteremia well. Time Spent With Patient Time: Total time spent is greater than 50% in coordination of care (as documented) at patient's floor/unit and/or counseling patient: Procedures Arterial Line Size (Gauge): 18
--- NOTE | 2024-05-26 13:11 | ESPR_ITS ---
<Statement entered by Amado Cooper MD - 05/26/24 18:30> Patient is downgraded from ICU. He was seen and examined in the ICU. He was AOx4 and was having adequate urine output. Patient had third EGD on 05/24 which revealed grade 3 esophageal varices status post banding and was started on octreotide drip. GI specialist recommended to continue the drip. Kidney functions remain worsening however cost clerk recommended to hold off on dialysis as patient is making good urine output. manager office services are trying to get a hold on patient's son however will try to reach the patient's son again tomorrow to have goals of care discussion to discuss patient's clinical condition. ID specialist, Dr Chamorro recommended to continue ceftriaxone for SBP however he stated that patient might not be able to handle treatment for bacteremia due to underlying severe decompensated liver disease as we already treated with antibiotic for more than 7 days. However, recommended to continue Rocephin for strep bacteremia. Pending goals of care discussion tomorrow morning. All labs and orders were reviewed. I saw and examined the patient, and I agree with current management stated by Dr Ronak MD,PGY1. Plan of care was discussed with the attending physician and resident physician. Disclaimer: Despite multiple revisions, due to the dictation software being used, the document bellow may not be free of grammatical errors including phonetic/typographic errors. However, this does not deter from our commitment to providing health care in the patient's best interest in mind. Dr. Kenneth MD, PGY 2 Documentation for date of: 05/26/24 Subjective Subjective Interval history: Benjamin Villarreal is a 59-year-old male with PMHX of alcohol use disorder, esophageal varices s/p banding, hypertension, hyperlipidemia, DM2, HFpEF (EF 55 to 60%) and biliary dyskinesia who was admitted 05/15 after coming to ED with complaints of black starry stools and witnessed bloody emesis. Upon night resident evaluation, unable to provide history and was only oriented to self and followed simple commands only. Per chart review, patient had been having black starry stools for 4 days and was hypoxic when EMS evaluated patient. Stated that he has not drank alcohol for the past 15 days. Of note, he was recently discharged from hospital after coming with similar complaints and underwent EGD that revealed grade 3 esophageal varices which were banded and ligated. On 05/15, patient had rapid response for large volume, dark-colored bloody stool and was upgraded to ICU for pressor support and mechanical ventilation for airway management. He has thus far been extubated and off pressors and downgraded to floors on 05/19 for further management. He has received a total of 8 units PRBC, 2 units FFP, and 2 units of platelets. 05/20: No acute overnight events reported. Seen and examined at bedside in ICU as telemetry overflow. States that he does not have any complaints at this time, including abdominal pain, nausea, or vomiting. However, abdominal x-ray showed mild to moderate small bowel ileus. Neurology following and wants to follow-up with another EEG given prior EEG abnormal findings. 05/22: No acute overnight events noted. Seen and examined at bedside in telemetry. Patient states that he does not have a complaint at this time. Abdomen continues to be distended and firm but patient denies nausea, vomiting, abdominal pain and states that he has been burping and passing gas. 05/23: No acute overnight events noted. Seen and examined at bedside in telemetry. Appeared to have increased work of breathing and repeat abdominal XR and ultrasound obtained that showed small bowel ileus and mild-moderate ascites, respectively. Concerns for intra-abdominal hypertension given findings of decreased UOP, increase in Cr from 1.4 to 2.3, and increase in WBC from 22 to 32 in addition to distended abdomen. Thus, NGT placed on LIS and bladder pressure obtained of 20. Repeat showed bladder pressure of 13 while on NGT, with output of approximately 300 cc of red/brown colored fluid. Attempted paracentesis, but unable to find appropriate pocket so will reattempt tomorrow. 05/24: No acute overnight events noted. Seen and examined at bedside and noted to be alert and oriented to self ambulate only with slurred speech. He does not have any complaints, including abdominal pain, nausea, vomiting. Bladder pressure noted to be 17 in a.m. with 250 cc of urine output with 2 BMs. NG tube output of approximately 300 cc of dark-colored blood with downtrending hemoglobin from 10.9 to 9.1. Renal function continues to decline with increasing creatinine from 2.3 to 3.4 and so nephrology was consulted. ICU consulted due to concern for intra-abdominal hypertension with progressive worsening kidney function and due to high risk of aspiration and severe GI bleed, patient was upgraded to ICU for closer monitoring. 05/26: Patient be downgraded to floors after 2 nights in ICU. During this time, patient underwent another EGD on 05/24 that again revealed grade 3 varices status post banding. Although urine output was adequate, renal panel showed worsening kidney function and so nephrology was consulted. Many attempts between ICU team and clinical social worker were made to contact family for goals of care discussion, including son (Benjamin Jordan, decision maker), but were unsuccessful. However, clinical social worker was able to contact another son, Yuri, and was notified about attempts to reach Benjamin Jordan and Yuri to reach out to his brother and will inform clinical social worker upon contact. Upon evaluation, patient did not have any complaints, including abdominal pain, N/V, shortness of breath, fever, or chills. Exam Vital Signs Temp Pulse Resp BP Pulse Ox O2 Del Method O2 Flow Rate 97.2 F 72 20 128/62 95 Room Air 3 05/26/24 12:00 05/26/24 13:01 05/26/24 13:01 05/26/24 13:01 05/26/24 13:01 05/26/24 12:00 05/24/24 20:50 FiO2 30 05/22/24 00:00 Narrative Exam General: alert and orientated x4, laying in bed comfortably, jaundiced, ill- appearing HEENT: scleral icterus, NC/AT, mucous membranes moist Cardiovascular: regular rate and rhythm, S1/S2 present, no murmurs appreciated Pulmonary: expiratory wheezing auscultated bilaterally, no crackles, rales, or rhonchi appreciated Abdominal: distended, firm, tympanic, non-tender, no rebound/guarding Musculoskeletal: normal ROM, no peripheral edema, dorsalis pedis pulses 2+ with black lesion on right hallux Skin: jaundiced, warm and dry, intact, no rashes Objective Labs 05/27/24 05:15 05/27/24 05:15 Labs: Laboratory Results - last 24 hr 05/24/24 05/24/24 05/24/24 18:00 18:00 18:00 WBC RBC Hgb Hct MCV MCH MCHC RDW Std Deviation Plt Count Neut % (Auto) Lymph % (Auto) Power % (Auto) Eos % (Auto) Baso % (Auto) Neut # (Auto) Lymph # (Auto) Power # (Auto) Eos # (Auto) Baso # (Auto) Immature Gran # (Auto) Absolute Nucleated RBC Immature Gran % Nucleated RBC % PT INR APTT Sodium Potassium Chloride Carbon Dioxide Anion Gap BUN Creatinine Estim Creat Clear Calc eGFR BUN/Creatinine Ratio Glucose Calculated Osmolality Lactic Acid Calcium Corrected Calcium Total Bilirubin AST ALT Alkaline Phosphatase Total Protein Albumin Globulin Albumin/Globulin Ratio Ur Random Creatinine Cancelled Ur Random Sodium Cancelled Ur Random Potassium Cancelled Ur Random Chloride Cancelled Urine Total Volume 1150 1150 1150 Ur Sodium mmol/L 63 Ur Sodium 24 Hour 72 Ur Potassium mmol/L 43 Ur Potassium 24 Hour 49 Ur Chloride mmol/L 76.5 Ur Chloride 24 Hour 88 L HIV 1&2 Antibody Rapid Misc Test Result 05/25/24 05/26/24 05:10 04:45 WBC 9.4 RBC 2.51 L Hgb 7.4 L Hct 22.3 L MCV 89 MCH 29.5 MCHC 33.2 RDW Std Deviation 65.8 H Plt Count 31 L Neut % (Auto) 82 H Lymph % (Auto) 9 L Power % (Auto) 6 Eos % (Auto) 2 Baso % (Auto) 0 Neut # (Auto) 7.7 Lymph # (Auto) 0.9 L Power # (Auto) 0.5 Eos # (Auto) 0.2 Baso # (Auto) 0.0 Immature Gran # (Auto) 0.17 H Absolute Nucleated RBC 0.00 Immature Gran % 2 H Nucleated RBC % 0 PT 28.7 H INR 2.8 H APTT 72.8 H D Sodium 147 H Potassium 3.2 L Chloride 117 H Carbon Dioxide 15.2 L Anion Gap 15 BUN 62 H Creatinine 3.8 H Estim Creat Clear Calc 19.6 L eGFR 17 L BUN/Creatinine Ratio 16 Glucose 107 H Calculated Osmolality 310 H Lactic Acid 1.4 Calcium 9.2 Corrected Calcium 9.9 Total Bilirubin 31.0 H* D AST 54 H ALT 39 Alkaline Phosphatase 106 Total Protein 5.3 L Albumin 3.1 L Globulin 2.2 L Albumin/Globulin Ratio 1.4 Ur Random Creatinine Ur Random Sodium Ur Random Potassium Ur Random Chloride Urine Total Volume Ur Sodium mmol/L Ur Sodium 24 Hour Ur Potassium mmol/L Ur Potassium 24 Hour Ur Chloride mmol/L Ur Chloride 24 Hour HIV 1&2 Antibody Rapid Non-Reactive Misc Test Result Platelets confirmed ABG Interpretation ABG results: 05/15/24 05/15/24 05/15/24 08:45 14:25 16:08 ABG pH 7.31 L 7.04 L* D 7.22 L D ABG pCO2 20 L 58 H D 35 D ABG pO2 116 H 330 H D 63 L D ABG HCO3 10 L 16 L 14 L ABG O2 Saturation 98 99 H 89 L ABG Base Excess -15 L -15 L -13 L VBG pH VBG pCO2 VBG pO2 VBG Base Excess 05/15/24 05/16/24 05/16/24 19:03 04:05 05:05 ABG pH 7.27 L 7.43 D 7.48 H ABG pCO2 27 L 56 H D 23 L D ABG pO2 85 D 160 H D 191 H D ABG HCO3 12 L 37 H 17 L ABG O2 Saturation 96 101 H 100 H ABG Base Excess -13 L 11 H -5 L VBG pH VBG pCO2 VBG pO2 VBG Base Excess 05/16/24 05/16/24 05/16/24 11:34 14:20 18:35 ABG pH 7.49 H 7.52 H 7.55 H ABG pCO2 27 L 26 L 25 L ABG pO2 173 H 160 H 201 H D ABG HCO3 21 21 21 ABG O2 Saturation 100 H 100 H 100 H ABG Base Excess -2 -1 0 VBG pH VBG pCO2 VBG pO2 VBG Base Excess 05/16/24 05/17/24 05/19/24 21:53 11:34 05:05 ABG pH 7.55 H 7.54 H 7.44 D ABG pCO2 25 L 26 L 32 ABG pO2 206 H 177 H D 80 L D ABG HCO3 22 22 22 ABG O2 Saturation 100 H 100 H 97 ABG Base Excess 0 0 -2 VBG pH VBG pCO2 VBG pO2 VBG Base Excess 05/20/24 05/22/24 05/23/24 04:55 09:46 08:05 ABG pH 7.43 ABG pCO2 32 ABG pO2 102 D ABG HCO3 21 ABG O2 Saturation 99 H ABG Base Excess -3 VBG pH 7.36 7.42 VBG pCO2 25 L 24 L VBG pO2 120 H 58 D VBG Base Excess -10 L -8 L Quality Measures Quality Measures VTE prophylaxis Assessment & Plan Assessment Current Active Medications: Generic Name Dose Route Start Last Admin Trade Name Freq PRN Reason Stop Dose Admin Albuterol/Ipratropium 3 ml 05/20/24 15:53 05/25/24 10:48 Albuterol/Ipratropium (Duoneb) Rt Irina 3 Ml Nebu INH 06/19/24 15:52 3 ml Q6HRRT PRN Administration SHORTNESS OF BREATH OR WHEEZE Cholestyramine Resin 1 pkt 05/18/24 21:00 05/26/24 10:49 Cholestyramine/Sucrose 1 Pkt Ea PO 06/17/24 20:59 1 pkt BID SREE Administration Dextrose 25 ml 05/15/24 01:22 Dextrose 50%-Water Inj 50 Ml Syringe IV 06/14/24 01:21 Q15MIN PRN BG 50-70 responsive npo pt Dextrose 50 ml 05/15/24 01:22 Dextrose 50%-Water Inj 50 Ml Syringe IV 06/14/24 01:21 Q15MIN PRN BG <50 OR BG <70 & pt unresponsive Glucagon 1 mg 05/15/24 01:22 Glucagon Inj 1 Mg Vial IM Q15MIN PRN BG <70, and no IV access Albumin Human 25 gm in 100 mls @ 100 mls/hr 05/26/24 09:00 05/26/24 09:06 Albuminar-25 Ivpb IV 05/29/24 08:59 100 mls/hr QDAY SREE Administration Protocol Octreotide Acetate 1,000 mcg/ 102 mls @ 5.1 mls/hr 05/24/24 09:23 05/26/24 02:08 Sodium Chloride IV 05/29/24 09:23 50 mcg/hr .Q20H SREE 5.1 mls/hr Administration Protocol 50 MCG/HR Ceftriaxone Sodium/Dextrose 2 gm in 50 mls @ 100 mls/hr 05/25/24 09:00 05/26/24 10:50 Rocephin/D5w 2gm IV 06/01/24 08:59 100 mls/hr QDAY SREE Administration Fat Emulsion Intravenous 500 mls @ 32 mls/hr 05/24/24 18:00 05/25/24 08:24 Intralipid 20% Iv IV 06/23/24 17:59 16 mls/hr [id number]@1800 SREE Infusion Multivitamins/Minerals 10 ml/ 2,030 mls @ 27.5 mls/hr 05/25/24 18:13 05/25/24 18:52 Potassium Acetate 40 meq/ IV 05/26/24 17:59 27.5 mls/hr Amino Acids QDAY@1800 SREE Administration Insulin Human Lispro 0 unit 05/25/24 00:00 05/26/24 11:53 Insulin Lispro (Admelog) 1 Unit/0.01 Ml Unit SC 06/24/24 00:00 Not Given Q6HR SREE Protocol Midodrine 10 mg 05/24/24 14:00 05/26/24 05:16 Midodrine 5 Mg Tablet PO 06/23/24 13:59 Not Given TID SREE Ondansetron HCl 4 mg 05/15/24 01:17 05/15/24 05:46 Ondansetron Inj 2 Mg/Ml Inj 2 Ml IV 06/14/24 01:16 4 mg Q6H PRN Administration NAUSEA OR VOMITING Protocol Pantoprazole Sodium 80 mg 05/15/24 21:00 05/26/24 09:06 Pantoprazole Inj 40 Mg Vial IVP 06/14/24 20:59 80 mg BID SREE Administration Rifaximin 550 mg 05/22/24 09:00 05/26/24 10:49 Rifaximin 550 Mg Tablet PO 05/29/24 08:59 550 mg BID SREE Administration Simethicone 80 mg 05/22/24 18:00 05/26/24 11:54 Simethicone 80 Mg Chew PO 06/21/24 17:59 80 mg QID SREE Administration Sodium Bicarbonate 650 mg 05/22/24 09:00 05/26/24 10:50 Sodium Bicarbonate 650 Mg Tablet PO 06/21/24 08:59 650 mg BID SREE Administration Plan Benjamin Villarreal is a 59-year-old male with PMHX of alcohol use disorder, esophageal varices s/p banding, hypertension, hyperlipidemia, DM2, HFpEF (EF 55 to 60%) and biliary dyskinesia who was admitted 05/15 after coming to ED with complaints of black starry stools and witnessed bloody emesis. On 05/15, patient had rapid response for large volume, dark-colored bloody stool and was upgraded to ICU for pressor support and mechanical ventilation for airway management. He has thus far been extubated and off pressors and downgraded to floors on 05/19 for further management. He has received a total of 8 units PRBC, 2 units FFP, and 2 units of platelets. After being downgraded, patient noted to become significantly more distended with worsening kidney function and found to have intra-abdominal hypertension. He was then upgraded to the ICU for further management but again downgraded to floors on 05/26. #Acute decompensated cirrhosis #Cirrhosis secondary to EtOH #History of alcohol use disorder #Esophageal varices status post band ligation (05/17, 05/24) #Hemorrhagic shock, resolved Initial hemoglobin of 5.8 and received total of 8 units PRBC, 2 units FFP, and 2 units platelets. EGD on 05/17: grade 2 varices s/p band ligation and diffuse mucosal oozing in setting of hypertensive portal gastropathy with blood clots in proximal body of stomach. EGD on 05/24: grade 3 varices s/p band ligation MELD Na score 31 -> 52.6% estmated 3-month mortality Child-Garcia score 11 (Child class C) -> 1-3 year life epectancy and 82% tamara- operative abdominal surgery mortality ? GI following, appreciate recommendations ? Octreotide drip (05/24-) ? Protonix 80 mg IV twice daily #Acute kidney injury secondary to ATN vs hepatorenal syndrome #Hypernatremia #Hypokalemia #Hypercalcemia #Hperphosphatemia ATN secondary to hypotension from shock vs hepatorenal syndrome. Previously underwent albumin challenge during previos ICU stay and improved with albumin, suggesting prerenal etiology of JEANIE. ? Nephrology consulted, appreciate recommendations ? Midodrine 10 mg PO TID PRN ? Albumin 25 g IV daily ? Avoid nephrotoxic agents, renally dose medications #Streptococcus anginosus bacteremia Blood cultures 05/14: 2/2 bottles positive for Strep anginosus Blood culture 05/16: negative Vancomycin discontinued (05/21-05/23) ? Infectious disease following, appreciate recommendations ? Ceftriaxone 2 g IV daily #Intra-abdominal hypertension Concerns for intra-abdominal hypertension given findings of decreased UOP, worsening renal function, and increasing leukocytosis in setting of distended abdomen. S/p NG tube on LIS-with overall improvement in bladder pressures (initial pressure of 20 now 15) with improvement in UOP. NGT now discontinued s/p EGD. NG tube output of approximately 300 cc of dark-colored blood with downtrending hemoglobin from 10.9 to 9.1. #Anion gap metabolic acidosis #Lactic acidosis HCO3 15, lactate improved to 1.4. ? Sodium bicarbonate 650 mg PO BID #Hepatic encephalopathy #Hyperammonemia ? Increased lactulose 20 g PO 3 times daily ? Titrate to 2-3 bowel movements ? Rifaximin 550 mg via NG BID #Hyperbilirubinemia ? Cholestyramine 1 packet PO BID #HFpEF Hold on diuresis for now as patient does not appear to be volume overload. #Type 2 diabetes mellitus A1c 6.7% on 04/2024. ? SSI ? Hypoglycemic protocol in place #? Seizures EEG on 05/19 obscured from artifact and will follow-up repeat EEG. Repeat EEG showed normal study. ? Neurology consulted, appreciate recommendations #Hypertonic hypernatremia, resolved Hospital management: Disposition: downgraded to floors for further management, pending [facility] discussion with son(s) Fluids: none Tubes: NGT and Sanchez DC'd Diet: NPO Lines: PIV DVT prophylaxis: SCDs GI prophylaxis: pantoprazole 80 mg IV BID Sanchez: placed CODE STATUS: full code ----- Plan discussed with attending physician Dr. Vuong and senior resident physician Dr. Kenneth Simons MD PGY-1 Internal Medicine Attending Provider Attestation/Addendum I reviewed labs, imaging, EKG, home medications and prior available records. Face to face evaluation was performed by me. I have personally examined the patient and discussed assessment and plan with the IM team. I reviewed the resident note and agree with the plan with exceptions as below. Decompensating liver cirrhosis Hemorrhagic shock, off pressors and downgraded from ICU Upper GI bleed, status post 3 EGDs, status post banding Gram-positive bacteremia/sepsis Acute hypoxic respiratory failure Abdominal distention JEANIE, hepatorenal versus ATN Continue IV Protonix Continue IV octreotide Monitor H&H closely Continue rifaximin Held lactulose in the setting of abdominal distention Insufficient ascites for drainage Nephrology consulted: No dialysis at this time Repeat blood cultures negative in 48 hours. Continue IV ceftriaxone Discussed with clinical social worker: His son Benjamin Booth is the decision-maker. Continue to discuss goals of care given the poor prognosis and multiple comorbidities Avoid alcohol use Outpatient follow-up with hepatology
--- NOTE | 2024-05-26 13:22 | ESPR_ITS ---
Documentation for date of: 05/26/24 Subjective Subjective Interval history: Patient seen and assessed at bedside in ICU. Patient being downgraded to telemetry. Patient's mentation at baseline and denies any active complaint. Exam Vital Signs Temp Pulse Resp BP Pulse Ox O2 Del Method O2 Flow Rate 97.2 F 76 20 128/62 95 Room Air 3 05/26/24 12:00 05/26/24 13:17 05/26/24 13:01 05/26/24 13:17 05/26/24 13:01 05/26/24 12:00 05/24/24 20:50 FiO2 30 05/22/24 00:00 Narrative Exam General: laying in bed comfortably, jaundiced, ill-appearing HEENT: scleral icterus Cardiovascular: regular rate and rhythm, systolic murmur appreciated. Pulmonary: Mild wheezing on auscultation lower lobes. Musculoskeletal: normal ROM, no peripheral edema Skin: jaundiced, warm and dry, intact, no rashes Neuro: Alert and oriented x 3, no focal neurological deficits noted. Objective Labs 05/27/24 05:15 05/26/24 04:45 Labs: Laboratory Results - last 24 hr 05/24/24 05/24/24 05/24/24 18:00 18:00 18:00 WBC RBC Hgb Hct MCV MCH MCHC RDW Std Deviation Plt Count Neut % (Auto) Lymph % (Auto) [place] % (Auto) Eos % (Auto) Baso % (Auto) Neut # (Auto) Lymph # (Auto) [place] # (Auto) Eos # (Auto) Baso # (Auto) Immature Gran # (Auto) Absolute Nucleated RBC Immature Gran % Nucleated RBC % PT INR APTT Sodium Potassium Chloride Carbon Dioxide Anion Gap BUN Creatinine Estim Creat Clear Calc eGFR BUN/Creatinine Ratio Glucose Calculated Osmolality Lactic Acid Calcium Corrected Calcium Total Bilirubin AST ALT Alkaline Phosphatase Total Protein Albumin Globulin Albumin/Globulin Ratio Ur Random Creatinine Cancelled Ur Random Sodium Cancelled Ur Random Potassium Cancelled Ur Random Chloride Cancelled Urine Total Volume 1150 1150 1150 Ur Sodium mmol/L 63 Ur Sodium 24 Hour 72 Ur Potassium mmol/L 43 Ur Potassium 24 Hour 49 Ur Chloride mmol/L 76.5 Ur Chloride 24 Hour 88 L HIV 1&2 Antibody Rapid Misc Test Result 05/25/24 05/26/24 05:10 04:45 WBC 9.4 RBC 2.51 L Hgb 7.4 L Hct 22.3 L MCV 89 MCH 29.5 MCHC 33.2 RDW Std Deviation 65.8 H Plt Count 31 L Neut % (Auto) 82 H Lymph % (Auto) 9 L [place] % (Auto) 6 Eos % (Auto) 2 Baso % (Auto) 0 Neut # (Auto) 7.7 Lymph # (Auto) 0.9 L [place] # (Auto) 0.5 Eos # (Auto) 0.2 Baso # (Auto) 0.0 Immature Gran # (Auto) 0.17 H Absolute Nucleated RBC 0.00 Immature Gran % 2 H Nucleated RBC % 0 PT 28.7 H INR 2.8 H APTT 72.8 H D Sodium 147 H Potassium 3.2 L Chloride 117 H Carbon Dioxide 15.2 L Anion Gap 15 BUN 62 H Creatinine 3.8 H Estim Creat Clear Calc 19.6 L eGFR 17 L BUN/Creatinine Ratio 16 Glucose 107 H Calculated Osmolality 310 H Lactic Acid 1.4 Calcium 9.2 Corrected Calcium 9.9 Total Bilirubin 31.0 H* D AST 54 H ALT 39 Alkaline Phosphatase 106 Total Protein 5.3 L Albumin 3.1 L Globulin 2.2 L Albumin/Globulin Ratio 1.4 Ur Random Creatinine Ur Random Sodium Ur Random Potassium Ur Random Chloride Urine Total Volume Ur Sodium mmol/L Ur Sodium 24 Hour Ur Potassium mmol/L Ur Potassium 24 Hour Ur Chloride mmol/L Ur Chloride 24 Hour HIV 1&2 Antibody Rapid Non-Reactive Misc Test Result Platelets confirmed ABG Interpretation ABG results: 05/15/24 05/15/24 05/15/24 08:45 14:25 16:08 ABG pH 7.31 L 7.04 L* D 7.22 L D ABG pCO2 20 L 58 H D 35 D ABG pO2 116 H 330 H D 63 L D ABG HCO3 10 L 16 L 14 L ABG O2 Saturation 98 99 H 89 L ABG Base Excess -15 L -15 L -13 L VBG pH VBG pCO2 VBG pO2 VBG Base Excess 05/15/24 05/16/24 05/16/24 19:03 04:05 05:05 ABG pH 7.27 L 7.43 D 7.48 H ABG pCO2 27 L 56 H D 23 L D ABG pO2 85 D 160 H D 191 H D ABG HCO3 12 L 37 H 17 L ABG O2 Saturation 96 101 H 100 H ABG Base Excess -13 L 11 H -5 L VBG pH VBG pCO2 VBG pO2 VBG Base Excess 05/16/24 05/16/24 05/16/24 11:34 14:20 18:35 ABG pH 7.49 H 7.52 H 7.55 H ABG pCO2 27 L 26 L 25 L ABG pO2 173 H 160 H 201 H D ABG HCO3 21 21 21 ABG O2 Saturation 100 H 100 H 100 H ABG Base Excess -2 -1 0 VBG pH VBG pCO2 VBG pO2 VBG Base Excess 05/16/24 05/17/24 05/19/24 21:53 11:34 05:05 ABG pH 7.55 H 7.54 H 7.44 D ABG pCO2 25 L 26 L 32 ABG pO2 206 H 177 H D 80 L D ABG HCO3 22 22 22 ABG O2 Saturation 100 H 100 H 97 ABG Base Excess 0 0 -2 VBG pH VBG pCO2 VBG pO2 VBG Base Excess 05/20/24 05/22/24 05/23/24 04:55 09:46 08:05 ABG pH 7.43 ABG pCO2 32 ABG pO2 102 D ABG HCO3 21 ABG O2 Saturation 99 H ABG Base Excess -3 VBG pH 7.36 7.42 VBG pCO2 25 L 24 L VBG pO2 120 H 58 D VBG Base Excess -10 L -8 L Quality Measures Quality Measures VTE prophylaxis Assessment & Plan Assessment Current Active Medications: Generic Name Dose Route Start Last Admin Trade Name Freq PRN Reason Stop Dose Admin Albuterol/Ipratropium 3 ml 05/20/24 15:53 05/25/24 10:48 Albuterol/Ipratropium (Duoneb) Rt Irina 3 Ml Nebu INH 06/19/24 15:52 3 ml Q6HRRT PRN Administration SHORTNESS OF BREATH OR WHEEZE Cholestyramine Resin 1 pkt 05/18/24 21:00 05/26/24 10:49 Cholestyramine/Sucrose 1 Pkt Ea PO 06/17/24 20:59 1 pkt BID SREE Administration Dextrose 25 ml 05/15/24 01:22 Dextrose 50%-Water Inj 50 Ml Syringe IV 06/14/24 01:21 Q15MIN PRN BG 50-70 responsive npo pt Dextrose 50 ml 05/15/24 01:22 Dextrose 50%-Water Inj 50 Ml Syringe IV 06/14/24 01:21 Q15MIN PRN BG <50 OR BG <70 & pt unresponsive Glucagon 1 mg 05/15/24 01:22 Glucagon Inj 1 Mg Vial IM Q15MIN PRN BG <70, and no IV access Albumin Human 25 gm in 100 mls @ 100 mls/hr 05/26/24 09:00 05/26/24 09:06 Albuminar-25 Ivpb IV 05/29/24 08:59 100 mls/hr QDAY SREE Administration Protocol Octreotide Acetate 1,000 mcg/ 102 mls @ 5.1 mls/hr 05/24/24 09:23 05/26/24 02:08 Sodium Chloride IV 05/29/24 09:23 50 mcg/hr .Q20H SREE 5.1 mls/hr Administration Protocol 50 MCG/HR Ceftriaxone Sodium/Dextrose 2 gm in 50 mls @ 100 mls/hr 05/25/24 09:00 05/26/24 10:50 Rocephin/D5w 2gm IV 06/01/24 08:59 100 mls/hr QDAY SREE Administration Fat Emulsion Intravenous 500 mls @ 32 mls/hr 05/24/24 18:00 05/25/24 08:24 Intralipid 20% Iv IV 06/23/24 17:59 16 mls/hr [email or web address] SREE Infusion Multivitamins/Minerals 10 ml/ 2,030 mls @ 27.5 mls/hr 05/25/24 18:13 05/25/24 18:52 Potassium Acetate 40 meq/ IV 05/26/24 17:59 27.5 mls/hr Amino Acids QDAY@1800 SREE Administration Insulin Human Lispro 0 unit 05/25/24 00:00 05/26/24 11:53 Insulin Lispro (Admelog) 1 Unit/0.01 Ml Unit SC 06/24/24 00:00 Not Given Q6HR [facility] Protocol Midodrine 10 mg 05/24/24 14:00 05/26/24 13:17 Midodrine 5 Mg Tablet PO 06/23/24 13:59 Not Given TID [facility] Ondansetron HCl 4 mg 05/15/24 01:17 05/15/24 05:46 Ondansetron Inj 2 Mg/Ml Inj 2 Ml IV 06/14/24 01:16 4 mg Q6H PRN Administration NAUSEA OR VOMITING Protocol Pantoprazole Sodium 80 mg 05/15/24 21:00 05/26/24 09:06 Pantoprazole Inj 40 Mg Vial IVP 06/14/24 20:59 80 mg BID SREE Administration Rifaximin 550 mg 05/22/24 09:00 05/26/24 10:49 Rifaximin 550 Mg Tablet PO 05/29/24 08:59 550 mg BID SREE Administration Simethicone 80 mg 05/22/24 18:00 05/26/24 11:54 Simethicone 80 Mg Chew PO 06/21/24 17:59 80 mg QID SREE Administration Sodium Bicarbonate 650 mg 05/22/24 09:00 05/26/24 10:50 Sodium Bicarbonate 650 Mg Tablet PO 06/21/24 08:59 650 mg BID SREE Administration Plan #Acute encephalopathy?improved Metabolic VS VS infectious VS toxic Continue with antibiotics Repeat EEG showed normal finding. Patient appears to be at baseline. Continue with lactulose and rifaximin #Upper GI bleed #Anemia #Cirrhosis #Diabetes mellitus #Hypertension #Hyperbilirubinemia #Transaminitis #Bacteremia #Hepatic encephalopathy Continue management per primary team Case discussed with attending Dr Michelle Valdovinos MD PGY3 Attending Provider Attestation/Addendum I personally have seen and examined the patient at the bedside and agree with resident's findings, assessment and plan of care patient. Patient does not have any focal neurological deficit and he is stable at baseline. Continue with the current management.
--- NOTE | 2024-05-26 16:00 | PC.SS ---
EARLY CHILDHOOD ASSOCIATE TEACHER fielded phone call from [facility] staff member, Shadia ; requesting update on patient's status. Update provided. Gerald CASTELLANO available to assist with discharge needs if required.
--- NOTE | 2024-05-26 16:01 | PC.SS ---
Update: Patient has been downgraded from ICU.
--- NOTE | 2024-05-26 16:42 | ESPR_ITS ---
Documentation for date of: 05/26/24 Subjective Subjective Interval history: Mr. Villarreal is a 59-year-old male with past medical history of alcohol use disorder, esophageal varices s/p banding, hypertension, hyperlipidemia, diabetes mellitus, HFpEF, biliary dyskinesia admitted to the hospital on 05/15/2024 with complaints of black tarry stools and bloody emesis. Initially patient was started on octreotide and Protonix drip. Later patient was transferred to the ICU on the same day and patient received multiple units of PRBC transfusion, platelet transfusion following which NG tube was placed and EGD was done By Dr. Calabrese for which patient was intubated as patient is clenching his mouth and not able to open his jaw. EGD done at that time showed diffuse blood oozing from everywhere. Later tried to transfer to higher centers for TIPS but patient was not accepted to higher care center. During ICU stay, patient developed JEANIE for which patient received albumin infusions, octreotide following which JEANIE resolved which could be due to prerenal from hemorrhagic shock. Patient was later extubated and downgraded to floors for further management. Patient was found to have elevated blood pressure of 20 for which primary team suspected abdominal compartment syndrome due to ileus and patient was transferred to ICU Nephrology was consulted for worsening renal function 05/24/2024 Patient is seen and examined at bedside in the ICU. Green[place]ic-speaking Vitals are stable. On physical examination, noted severe abdominal distention with no peripheral edema noted Labs showed WBC 19, Hb 8.5, platelets 50, INR 2.4, sodium 140 [place], chloride 115, bicarb 15, anion gap 17, BUN 52, creatinine 3.4, lactate 2.2, total bilirubin 34.7 Noted to have a urine output of 250 mL since this morning, total 750 mL in last 24 hours Recommended to start albumin-1 g/kg and continue midodrine for 48 hours Patient appears to be intravascularly volume depleted as patient is on NG tube suction and rectal tube on lactulose 05/25/2024 Patient is seen and examined at the bedside in the ICU. Patient looks sicker than yesterday Vitals are stable. Patient is receiving peripheral parenteral nutrition. Got endoscopy yesterday and found to have Grade III esophageal varices and ligated by Dr. calabrese Patient is able to maintain adequate urine output. But noted to have severe abdominal distention, resonant on percussion, likely due to ileus Recommended to decrease the quantity of infusions by concentrating the medications Labs showed worsening renal functions with sodium 146, chloride 115, BUN 65, creatinine 3.6, lactate 2.5, total bilirubin 32.1, AST 51, ALT 50, albumin 3.1 Fractional excretion of sodium is 4.3%, that could be suggesting ATN Recommended to continue to give albumin infusions for now and continue PPN 05/26/2024 Patient is seen and examined bedside in the ICU. No acute overnight events. Denies any other complaints. Vitals all stable even without vasopressor. Patient noted to have adequate amount of urine around 2000 mL despite worsening renal functions on lab work Abdomen looks less distended when compared to yesterday. Patient is taken off lactulose. Labs done today showed WBC 9.4, Hb 7.4, platelets 31, sodium 147, potassium 3.2, chloride 117, bicarb 15.2, BUN 62, creatinine 3.8, total bilirubin 31 Recommended to continue to monitor urine output and renal functions Will do dialysis if patient's renal function continues to deteriorate Exam Vital Signs Temp Pulse Resp BP Pulse Ox O2 Del Method O2 Flow Rate 97.2 F 76 20 128/62 95 Room Air 3 05/26/24 12:00 05/26/24 13:17 05/26/24 13:01 05/26/24 13:17 05/26/24 13:01 05/26/24 12:00 05/24/24 20:50 FiO2 30 05/22/24 00:00 Narrative Exam General: Awake. NG tube insitu. Icteric HEENT: Normocephalic, atraumatic, mucous membranes moist. Heart: Regular rate and rhythm, no murmurs. Lungs: Clear to auscultation with no wheezing or crackles. Abdomen: Soft, severely distended, nontender, decreased bowel sounds. ?No guarding or rebound tenderness. Neurologic: Alert and oriented x3, no gross neurological deficit, and patient able to move all 4 extremities. Extremities: Right upper extremity edema. Skin: Ecchymotic patches noted Objective Labs 05/27/24 05:15 05/27/24 05:15 Labs: Laboratory Results - last 24 hr 05/24/24 05/24/24 05/24/24 18:00 18:00 18:00 WBC RBC Hgb Hct MCV MCH MCHC RDW Std Deviation Plt Count Neut % (Auto) Lymph % (Auto) [place] % (Auto) Eos % (Auto) Baso % (Auto) Neut # (Auto) Lymph # (Auto) [place] # (Auto) Eos # (Auto) Baso # (Auto) Immature Gran # (Auto) Absolute Nucleated RBC Immature Gran % Nucleated RBC % PT INR APTT Sodium Potassium Chloride Carbon Dioxide Anion Gap BUN Creatinine Estim Creat Clear Calc eGFR BUN/Creatinine Ratio Glucose Calculated Osmolality Lactic Acid Calcium Corrected Calcium Total Bilirubin AST ALT Alkaline Phosphatase Total Protein Albumin Globulin Albumin/Globulin Ratio Ur Random Creatinine Cancelled Ur Random Sodium Cancelled Ur Random Potassium Cancelled Ur Random Chloride Cancelled Urine Total Volume 1150 1150 1150 Ur Sodium mmol/L 63 Ur Sodium 24 Hour 72 Ur Potassium mmol/L 43 Ur Potassium 24 Hour 49 Ur Chloride mmol/L 76.5 Ur Chloride 24 Hour 88 L HIV 1&2 Antibody Rapid Mis Test Result 05/25/24 05/26/24 05:10 04:45 WBC 9.4 RBC 2.51 L Hgb 7.4 L Hct 22.3 L MCV 89 MCH 29.5 MCHC 33.2 RDW Std Deviation 65.8 H Plt Count 31 L Neut % (Auto) 82 H Lymph % (Auto) 9 L [place] % (Auto) 6 Eos % (Auto) 2 Baso % (Auto) 0 Neut # (Auto) 7.7 Lymph # (Auto) 0.9 L [place] # (Auto) 0.5 Eos # (Auto) 0.2 Baso # (Auto) 0.0 Immature Gran # (Auto) 0.17 H Absolute Nucleated RBC 0.00 Immature Gran % 2 H Nucleated RBC % 0 PT 28.7 H INR 2.8 H APTT 72.8 H D Sodium 147 H Potassium 3.2 L Chloride 117 H Carbon Dioxide 15.2 L Anion Gap 15 BUN 62 H Creatinine 3.8 H Estim Creat Clear Calc 19.6 L eGFR 17 L BUN/Creatinine Ratio 16 Glucose 107 H Calculated Osmolality 310 H Lactic Acid 1.4 Calcium 9.2 Corrected Calcium 9.9 Total Bilirubin 31.0 H* D AST 54 H ALT 39 Alkaline Phosphatase 106 Total Protein 5.3 L Albumin 3.1 L Globulin 2.2 L Albumin/Globulin Ratio 1.4 Ur Random Creatinine Ur Random Sodium Ur Random Potassium Ur Random Chloride Urine Total Volume Ur Sodium mmol/L Ur Sodium 24 Hour Ur Potassium mmol/L Ur Potassium 24 Hour Ur Chloride mmol/L Ur Chloride 24 Hour HIV 1&2 Antibody Rapid Non-Reactive Misc Test Result Platelets confirmed ABG Interpretation ABG results: 05/15/24 05/15/24 05/15/24 08:45 14:25 16:08 ABG pH 7.31 L 7.04 L* D 7.22 L D ABG pCO2 20 L 58 H D 35 D ABG pO2 116 H 330 H D 63 L D ABG HCO3 10 L 16 L 14 L ABG O2 Saturation 98 99 H 89 L ABG Base Excess -15 L -15 L -13 L VBG pH VBG pCO2 VBG pO2 VBG Base Excess 05/15/24 05/16/24 05/16/24 19:03 04:05 05:05 ABG pH 7.27 L 7.43 D 7.48 H ABG pCO2 27 L 56 H D 23 L D ABG pO2 85 D 160 H D 191 H D ABG HCO3 12 L 37 H 17 L ABG O2 Saturation 96 101 H 100 H ABG Base Excess -13 L 11 H -5 L VBG pH VBG pCO2 VBG pO2 VBG Base Excess 05/16/24 05/16/24 05/16/24 11:34 14:20 18:35 ABG pH 7.49 H 7.52 H 7.55 H ABG pCO2 27 L 26 L 25 L ABG pO2 173 H 160 H 201 H D ABG HCO3 21 21 21 ABG O2 Saturation 100 H 100 H 100 H ABG Base Excess -2 -1 0 VBG pH VBG pCO2 VBG pO2 VBG Base Excess 05/16/24 05/17/24 05/19/24 21:53 11:34 05:05 ABG pH 7.55 H 7.54 H 7.44 D ABG pCO2 25 L 26 L 32 ABG pO2 206 H 177 H D 80 L D ABG HCO3 22 22 22 ABG O2 Saturation 100 H 100 H 97 ABG Base Excess 0 0 -2 VBG pH VBG pCO2 VBG pO2 VBG Base Excess 05/20/24 05/22/24 05/23/24 04:55 09:46 08:05 ABG pH 7.43 ABG pCO2 32 ABG pO2 102 D ABG HCO3 21 ABG O2 Saturation 99 H ABG Base Excess -3 VBG pH 7.36 7.42 VBG pCO2 25 L 24 L VBG pO2 120 H 58 D VBG Base Excess -10 L -8 L Quality Measures Quality Measures VTE prophylaxis Assessment & Plan Assessment Current Active Medications: Generic Name Dose Route Start Last Admin Trade Name Freq PRN Reason Stop Dose Admin Albuterol/Ipratropium 3 ml 05/20/24 15:53 05/25/24 10:48 Albuterol/Ipratropium (Duoneb) Rt Irina 3 Ml Nebu INH 06/19/24 15:52 3 ml Q6HRRT PRN Administration SHORTNESS OF BREATH OR WHEEZE Cholestyramine Resin 1 pkt 05/18/24 21:00 05/26/24 10:49 Cholestyramine/Sucrose 1 Pkt Ea PO 06/17/24 20:59 1 pkt BID SREE Administration Dextrose 25 ml 05/15/24 01:22 Dextrose 50%-Water Inj 50 Ml Syringe IV 06/14/24 01:21 Q15MIN PRN BG 50-70 responsive npo pt Dextrose 50 ml 05/15/24 01:22 Dextrose 50%-Water Inj 50 Ml Syringe IV 06/14/24 01:21 Q15MIN PRN BG <50 OR BG <70 & pt unresponsive Glucagon 1 mg 05/15/24 01:22 Glucagon Inj 1 Mg Vial IM Q15MIN PRN BG <70, and no IV access Albumin Human 25 gm in 100 mls @ 100 mls/hr 05/26/24 09:00 05/26/24 09:06 Albuminar-25 Ivpb IV 05/29/24 08:59 100 mls/hr QDAY SREE Administration Protocol Octreotide Acetate 1,000 mcg/ 102 mls @ 5.1 mls/hr 05/24/24 09:23 05/26/24 02:08 Sodium Chloride IV 05/29/24 09:23 50 mcg/hr .Q20H SREE 5.1 mls/hr Administration Protocol 50 MCG/HR Ceftriaxone Sodium/Dextrose 2 gm in 50 mls @ 100 mls/hr 05/25/24 09:00 05/26/24 10:50 Rocephin/D5w 2gm IV 06/01/24 08:59 100 mls/hr QDAY SREE Administration Fat Emulsion Intravenous 500 mls @ 32 mls/hr 05/24/24 18:00 05/25/24 08:24 Intralipid 20% Iv IV 06/23/24 17:59 16 mls/hr [email or web address] SREE Infusion Multivitamins/Minerals 10 ml/ 2,030 mls @ 27.5 mls/hr 05/25/24 18:13 05/25/24 18:52 Potassium Acetate 40 meq/ IV 05/26/24 17:59 27.5 mls/hr Amino Acids QDAY@1800 SREE Administration Multivitamins/Minerals 10 ml/ 1,025 mls @ 27.5 mls/hr 05/26/24 18:00 Potassium Acetate 30 meq/ IV 05/27/24 17:59 Amino Acids QDAY@1800 SREE Insulin Human Lispro 0 unit 05/25/24 00:00 05/26/24 11:53 Insulin Lispro (Admelog) 1 Unit/0.01 Ml Unit SC 06/24/24 00:00 Not Given Q6HR SREE Protocol Midodrine 10 mg 05/24/24 14:00 05/26/24 13:17 Midodrine 5 Mg Tablet PO 06/23/24 13:59 Not Given TID SREE Ondansetron HCl 4 mg 05/15/24 01:17 05/15/24 05:46 Ondansetron Inj 2 Mg/Ml Inj 2 Ml IV 06/14/24 01:16 4 mg Q6H PRN Administration NAUSEA OR VOMITING Protocol Pantoprazole Sodium 80 mg 05/15/24 21:00 05/26/24 09:06 Pantoprazole Inj 40 Mg Vial IVP 06/14/24 20:59 80 mg BID SREE Administration Rifaximin 550 mg 05/22/24 09:00 05/26/24 10:49 Rifaximin 550 Mg Tablet PO 05/29/24 08:59 550 mg BID SREE Administration Simethicone 80 mg 05/22/24 18:00 05/26/24 11:54 Simethicone 80 Mg Chew PO 06/21/24 17:59 80 mg QID SREE Administration Sodium Bicarbonate 650 mg 05/22/24 09:00 05/26/24 10:50 Sodium Bicarbonate 650 Mg Tablet PO 06/21/24 08:59 650 mg BID SREE Administration Plan A 59-year-old male with past medical history of alcohol use disorder, esophageal varices s/p banding, hypertension, hyperlipidemia, diabetes mellitus, HFpEF, biliary dyskinesia admitted to the hospital on 05/15/2024 with complaints of black tarry stools and bloody emesis and consulted for JEANIE # Acute kidney injury Likely ATN from GI losses due to drop in blood pressures versus HRS in the setting of decompensated liver disease -Patient is admitted to the hospital with decompensated liver disease with variceal bleeding -Patient developed JEANIE at the time of admission which resolved with IV albumin and octreotide -Patient was downgraded to floors but as the patient is having severe abdominal distention patient was upgraded to ICU with the suspicion of abdominal compartment syndrome from ileus -Patient found to have worsening renal functions with uptrending creatinine from 05/22/2024, Cr 1.4> 05/23, Cr 2.3 > 05/24, Cr 3.4 -Patient found to have adequate urine output as of 05/25/2024 -renal ultrasound showed bilateral renal parenchymal disease -Fractional excretion of sodium is 4.3%, which is suggestive of intrinsic disease, likely ATN in the setting of acute illness Plan -Avoid nephrotoxic medications and renally dose medications -Monitor blood pressures and strict urine input/output -Will do dialysis if patient's renal function continues to deteriorate Patient overall likely to have a poor prognosis in the setting of decompensated liver disease, worsening renal functions, worsening respiratory functions. # Hypernatremia, hyperchloremia Likely from the intravascular dehydration -As of 05/26/2024, sodium is 147, chloride 117 Plan -Continue albumin infusions -Monitor input and output -Continue to monitor electrolytes # High anion gap metabolic acidosis # Lactic acidosis, resolved Likely due to combined intravascular dehydration, GI losses and JEANIE. -Started on sodium bicarbonate tablets 650 Mg p.o. twice daily # Hyperphosphatemia -Phosphorus is 5.8 as of 05/24/2024 -Likely due to JEANIE, monitor phosphorus levels #mixed hypovolemic(class 3 hemorrhagic shock) +septic shock-resolved #History of hypertension #History of hyperlipidemia #HFpEF 55 to 60% #Acute GI bleed #History of grade 3 esophageal varices status post banding #History of alcohol use disorder #Cirrhosis #Acute on chronic liver failure #Hyperbilirubinemia #Hyperammonemia #Hypoalbuminemia #Ascites #Abdominal distention -Rest of the medical conditions to be treated as per ICU team Thank you for allowing us to involved in the care of the patient Patient plan of care was discussed with the attending physician, Dr. Michelle Stack, PGY1 Attending Provider Attestation/Addendum Patient seen and examined with resident physician Dr. Kunz. Note reviewed, agree with findings and recommendations. Patient currently seen in ICU. Patient alert and awake although very weak. He had a prolonged hospital course. Worsening decompensated liver cirrhosis with GI bleed from varices, significant elevation in bilirubin, hepatic encephalopathy, hypotension, ascites, hypoalbuminemia, anemia, thrombocytopenia and now with elevated creatinine. Patient clinically looks rather dehydrated. Agree with fluids, octreotide, albumin and midodrine. Currently on TPN. Rate decreased to half. Creatinine continues to be worsening despite volume resuscitation-patient seems to be in hepatorenal syndrome. No family around. My understanding cannot be reached. HRS-prognosis remains poor. Plan of care discussed with ICU team. Not sure if he is a candidate for dialysis. Not a liver transplant candidate at this point . critical care time spent more than 40 minutes regarding plan of care and disease management. 05/26 Status post banding by Dr. Calabrese. Abdomen today seems to be less distended. Off lactulose. Recommended ICU team to start rifaximin. Patient currently seems to have good urine output. Suspect ATN. If ATN- Will have renal recovery. No need for emergency dialysis. Plan of care discussed with ICU team
[2024-05-26] MEDS: FAT EMULSIONS 20% IV 500 ML 16 ML IV (18:02)
[2024-05-27] VITALS (13 sets, daily range): BP systolic 102–125; BP diastolic 55–74; PULSE 71–91; RESP 14–24; TEMP 36.1–36.6; O2SAT 94–100; BMI 28.3
[2024-05-27 05:31] LABS: Lactate (Lactic Acid) 2.1 mMol/L (0.4-2.0)
[2024-05-27] MEDS: SIMETHICONE 80 MG CHEW PO ×3 (05:38→21:10)
[2024-05-27 05:48] LABS: Basophils # (Auto) 0.1 Thou/mm3 (0.0-0.2); Basophils % (Auto) 0 % (0-2.5); Eosinophils # (Auto) 0.1 Thou/mm3 (0.0-0.5); Eosinophils % (Auto) 1 % (0-10); Hematocrit 25.2 % (41.0-53.0); Immature Granulocytes % (Auto) 4 % (0-0); Immature Granulocytes Auto 0.58 Thou/mm3 (0.00-0.00); Lymphocytes # (Auto) 1.5 Thou/mm3 (1.0-4.8); Lymphocytes % (Auto) 9 % (10-50); Mean Corpuscular HGB Conc 31.7 g/dl (31.0-37.0); Mean Corpuscular Hemoglobin 29.7 pg (25.0-35.0); Mean Corpuscular Volume 94 fL (80-100); Monocytes # (Auto) 0.9 Thou/mm3 (0.0-0.8); Monocytes % (Auto) 5 % (0-12); Neutrophils # (Auto) 13.2 Thou/mm3 (1.8-7.7); Neutrophils % (Auto) 81 % (37-80); Nucleated Red Blood Cell # 0.08 Thou/mm3 (0.00-0.00); Nucleated Red Blood Cell % 1 /100 WBC (0); RDW Standard Deviation 74.2 fL (35.1-43.9); Red Blood Count 2.69 Miln/mm3 (4.50-5.90); White Blood Count 16.4 Thou/mm3 (3.8-10.6)
[2024-05-27 06:00] LABS: Platelet Count 34 Thou/mm3 (140-440)
[2024-05-27 06:01] LABS: Slide Review Platelets confirmed
[2024-05-27 06:13] LABS: INR 2.8 (0.9-1.3); Partial Thromboplastin Time 65.8 Seconds (22.0-36.0); Prothrombin Time 28.5 Seconds (9.0-12.2)
[2024-05-27 06:32] LABS: Alanine Aminotransferase 37 U/L (10-49); Albumin, Serum 3.3 gm/dL (3.5-5.0); Albumin/Globulin Ratio 1.6 (1.2-2.2); Alkaline Phosphatase 110 U/L (46-116); Anion Gap 16 (7-16); Aspartate Amino Transferase 61 U/L (0-34); BUN/Creatinine Ratio 20 Ratio (12-20); Blood Urea Nitrogen 63 mg/dL (9-23); Calcium 9.5 mg/dL (8.3-10.6); Calcium (Corrected) 10.1 mg/dL (8.5-10.1); Chloride 117 mMol/L (98-107); Creatinine (Component) 3.2 mg/dL (0.6-1.3); Estimated Creatinine Clearance 23.3 mL/min (>60); Globulin 2.1 gm/dL (2.3-3.5); Glucose 115 mg/dL (74-106); Osmolality,Calculated 307 (275-295); Phosphorous 3.6 mg/dL (2.4-5.1); Potassium 4.1 mMol/L (3.4-5.1); Sodium 145 mMol/L (136-145); Total Protein 5.4 gm/dL (5.7-8.2); eGFR 21 See Note
[2024-05-27 06:40] LABS: Carbon Dioxide 12.4 mMol/L (20.0-31.0)
[2024-05-27 06:41] LABS: Bilirubin,Total 33.4 mg/dL (0.3-1.2)
--- NOTE | 2024-05-27 07:57 | PC.SS ---
PLASTIC SURGERY MANAGER received phone call from the patient's son, Benjamin Villarreal Jr. PLASTIC SURGERY MANAGER informed patient's son medical team request to discuss patient's prognosis, intervention and discharge plan with son. Patient's son agreeable to conducting phone contact with medical team. PLASTIC SURGERY MANAGER contacted resident to provide contact update. Resident to reach out to patient's son via phone.
[2024-05-27 08:23] LABS: Free T4 (Free Thyroxine) 0.62 ng/dL (0.89-1.76)
[2024-05-27 08:28] LABS: Reflex Lactate? Y
[2024-05-27] MEDS: CHOLESTYRAMINE/SUCROSE 1 PKT EA PO ×2 (08:47→21:11)
[2024-05-27] MEDS: rifaximin 550 MG TABLET PO ×2 (08:47→21:09)
[2024-05-27] MEDS: SODIUM BICARBONATE 650 MG TABLET PO ×2 (08:47→21:09)
[2024-05-27] MEDS: ALBUMIN HUMAN 25% IVPB 25 GM/100 ML BTL IV (08:47)
[2024-05-27] MEDS: Sodium Bicarb 8.4% 50ml Vial* 88.23 MEQ in DEXTROSE 5%-WATER 500 ML 100 MEQ IV ×2 (09:05→21:08)
[2024-05-27 09:29] LABS: Lactic Acid, 3 HR 2.7 mMol/L (0.4-2.0)
--- NOTE | 2024-05-27 09:35 | PC.SS ---
SS follow up note; SS contacted Melissa from [facility], she informed that auth was obtained, Patient may discharge to [facility] when medically cleared.
[2024-05-27] MEDS: cefTRIAXone/D5w 2gm 2 GM/50 ML BAG IV (09:51)
--- NOTE | 2024-05-27 11:24 | ESPR_ITS ---
<Statement entered by Amado Cooper MD - 05/27/24 15:35> Patient was seen and examined at the bedside. Goals of care discussion was performed with the patient. He was tachypneic wheezing and had severe abdominal distention. Patient was explained that he may deteriorate further given decompensated liver cirrhosis and worsening kidney functions however patient wants to pursue with CODE STATUS as full code and wants to continue with all active management. Additionally, he spoke to his son and he was asking him to visit him. Son was agreeable to what patient wanted. Server Assistant was contacted who recommended to perform a chest x-ray and if patient's blood pressure tolerates we can give a dose of Lasix 40 mg IV x 1. Patient was explained that he might need temporary dialysis tomorrow if he keeps having fluid overload state. Patient was agreeable to that. We are continuing ceftriaxone 2 g for GPC bacteremia treatment per ID recommendation continue Protonix and octreotide. Additionally, continue bicarb drip for anion gap metabolic acidosis and lactic acidosis. Water enema was given as patient denied having a bowel movement. Urine output was 650 cc. Labs revealed leukocytosis, hemoglobin around 8.0. Lactic acid 2.1. Kidney functions with BUN 63 and creatinine 3.2. Bicarb was 12.4. Closely monitoring and continue with current plan. All labs and orders were reviewed. I saw and examined the patient, and I agree with current management stated by Dr Ronak MD,PGY1. Plan of care was discussed with the attending physician and resident physician. Disclaimer: Despite multiple revisions, due to the dictation software being used, the document bellow may not be free of grammatical errors including phonetic/typographic errors. However, this does not deter from our commitment to providing health care in the patient's best interest in mind. Dr. Kenneth MD, PGY 2 Documentation for date of: 05/27/24 Subjective Subjective Interval history: Benjamin Villarreal is a 59-year-old male with PMHX of alcohol use disorder, esophageal varices s/p banding, hypertension, hyperlipidemia, DM2, HFpEF (EF 55 to 60%) and biliary dyskinesia who was admitted 05/15 after coming to ED with complaints of black starry stools and witnessed bloody emesis. Upon night resident evaluation, unable to provide history and was only oriented to self and followed simple commands only. Per chart review, patient had been having black starry stools for 4 days and was hypoxic when EMS evaluated patient. Stated that he has not drank alcohol for the past 15 days. Of note, he was recently discharged from hospital after coming with similar complaints and underwent EGD that revealed grade 3 esophageal varices which were banded and ligated. On 05/15, patient had rapid response for large volume, dark-colored bloody stool and was upgraded to ICU for pressor support and mechanical ventilation for airway management. He has thus far been extubated and off pressors and downgraded to floors on 05/19 for further management. He has received a total of 8 units PRBC, 2 units FFP, and 2 units of platelets. 05/20: No acute overnight events reported. Seen and examined at bedside in ICU as telemetry overflow. States that he does not have any complaints at this time, including abdominal pain, nausea, or vomiting. However, abdominal x-ray showed mild to moderate small bowel ileus. Neurology following and wants to follow-up with another EEG given prior EEG abnormal findings. 05/22: No acute overnight events noted. Seen and examined at bedside in telemetry. Patient states that he does not have a complaint at this time. Abdomen continues to be distended and firm but patient denies nausea, vomiting, abdominal pain and states that he has been burping and passing gas. 05/23: No acute overnight events noted. Seen and examined at bedside in telemetry. Appeared to have increased work of breathing and repeat abdominal XR and ultrasound obtained that showed small bowel ileus and mild-moderate ascites, respectively. Concerns for intra-abdominal hypertension given findings of decreased UOP, increase in Cr from 1.4 to 2.3, and increase in WBC from 22 to 32 in addition to distended abdomen. Thus, NGT placed on LIS and bladder pressure obtained of 20. Repeat showed bladder pressure of 13 while on NGT, with output of approximately 300 cc of red/brown colored fluid. Attempted paracentesis, but unable to find appropriate pocket so will reattempt tomorrow. 05/24: No acute overnight events noted. Seen and examined at bedside and noted to be alert and oriented to self ambulate only with slurred speech. He does not have any complaints, including abdominal pain, nausea, vomiting. Bladder pressure noted to be 17 in a.m. with 250 cc of urine output with 2 BMs. NG tube output of approximately 300 cc of dark-colored blood with downtrending hemoglobin from 10.9 to 9.1. Renal function continues to decline with increasing creatinine from 2.3 to 3.4 and so nephrology was consulted. ICU consulted due to concern for intra-abdominal hypertension with progressive worsening kidney function and due to high risk of aspiration and severe GI bleed, patient was upgraded to ICU for closer monitoring. 05/26: Patient be downgraded to floors after 2 nights in ICU. During this time, patient underwent another EGD on 05/24 that again revealed grade 3 varices status post banding. Although urine output was adequate, renal panel showed worsening kidney function and so nephrology was consulted. Many attempts between ICU team and social service assistant were made to contact family for goals of care discussion, including son (Benjamin Jordan, decision maker), but were unsuccessful. However, social service assistant was able to contact another son, Yuri, and was notified about attempts to reach Benjamin Jordan and Yuri to reach out to his brother and will inform social service assistant upon contact. Upon evaluation, patient did not have any complaints, including abdominal pain, N/V, shortness of breath, fever, or chills. 05/27: No acute overnight events. Seen and examined at bedside and patient does not have any complaints, including abdoimnal pain, nausea, vomiting, fever, chills, sweats. He continues to be alert and oriented x3, though with some slurred speech and delayed responses noted. Will have a goals of care discussion with patient today given clinical status of end-stage liver disease as shown by coagulopathy, significant hyperbilirubinemia, thrombocytopemia, worsening renal function, and encephalopathy. Will also contact son, Benjamin Jordan, and give update of patient's clinical status, hospital course, and treatment plan. Exam Vital Signs Temp Pulse Resp BP Pulse Ox O2 Del Method O2 Flow Rate 97.8 F 71 14 110/55 L 95 Room Air 3 05/27/24 08:00 05/27/24 08:00 05/27/24 08:00 05/27/24 08:00 05/27/24 08:00 05/27/24 08:00 05/24/24 20:50 FiO2 30 05/22/24 00:00 Narrative Exam General: alert and orientated x4, laying in bed comfortably, jaundiced, ill- appearing HEENT: scleral icterus, NC/AT, mucous membranes moist Cardiovascular: regular rate and rhythm, S1/S2 present, no murmurs appreciated Pulmonary: expiratory wheezing auscultated bilaterally, shallow breaths, increase respiratory effort Abdominal: distended, firm, tympanic, non-tender, no rebound/guarding Musculoskeletal: normal ROM, no peripheral edema, dorsalis pedis pulses 2+ with black lesion on right hallux Skin: jaundiced, spider angioma on chest, warm and dry, intact, no rashes Neuro: slurring speech, delayed responses Objective Labs 05/27/24 05:15 05/27/24 05:15 Labs: Laboratory Results - last 24 hr 05/27/24 05/27/24 05:15 09:15 WBC 16.4 H D RBC 2.69 L Hgb 8.0 L Hct 25.2 L MCV 94 MCH 29.7 MCHC 31.7 RDW Std Deviation 74.2 H Plt Count 34 L Neut % (Auto) 81 H Lymph % (Auto) 9 L Baker % (Auto) 5 Eos % (Auto) 1 Baso % (Auto) 0 Neut # (Auto) 13.2 H Lymph # (Auto) 1.5 Baker # (Auto) 0.9 H Eos # (Auto) 0.1 Baso # (Auto) 0.1 Immature Gran # (Auto) 0.58 H Absolute Nucleated RBC 0.08 H Immature Gran % 4 H Nucleated RBC % 1 H PT 28.5 H INR 2.8 H APTT 65.8 H Sodium 145 Potassium 4.1 D Chloride 117 H Carbon Dioxide 12.4 L* Anion Gap 16 BUN 63 H Creatinine 3.2 H D Estim Creat Clear Calc 23.3 L eGFR 21 L BUN/Creatinine Ratio 20 Glucose 115 H Calculated Osmolality 307 H Lactic Acid 2.1 H 2.7 H Calcium 9.5 Corrected Calcium 10.1 Phosphorus 3.6 Magnesium 2.0 Total Bilirubin 33.4 H* D AST 61 H ALT 37 Alkaline Phosphatase 110 Total Protein 5.4 L Albumin 3.3 L Globulin 2.1 L Albumin/Globulin Ratio 1.6 Free T4 0.62 L Misc Test Result Platelets confirmed ABG Interpretation ABG results: 05/15/24 05/15/24 05/15/24 08:45 14:25 16:08 ABG pH 7.31 L 7.04 L* D 7.22 L D ABG pCO2 20 L 58 H D 35 D ABG pO2 116 H 330 H D 63 L D ABG HCO3 10 L 16 L 14 L ABG O2 Saturation 98 99 H 89 L ABG Base Excess -15 L -15 L -13 L VBG pH VBG pCO2 VBG pO2 VBG Base Excess 05/15/24 05/16/24 05/16/24 19:03 04:05 05:05 ABG pH 7.27 L 7.43 D 7.48 H ABG pCO2 27 L 56 H D 23 L D ABG pO2 85 D 160 H D 191 H D ABG HCO3 12 L 37 H 17 L ABG O2 Saturation 96 101 H 100 H ABG Base Excess -13 L 11 H -5 L VBG pH VBG pCO2 VBG pO2 VBG Base Excess 05/16/24 05/16/24 05/16/24 11:34 14:20 18:35 ABG pH 7.49 H 7.52 H 7.55 H ABG pCO2 27 L 26 L 25 L ABG pO2 173 H 160 H 201 H D ABG HCO3 21 21 21 ABG O2 Saturation 100 H 100 H 100 H ABG Base Excess -2 -1 0 VBG pH VBG pCO2 VBG pO2 VBG Base Excess 05/16/24 05/17/24 05/19/24 21:53 11:34 05:05 ABG pH 7.55 H 7.54 H 7.44 D ABG pCO2 25 L 26 L 32 ABG pO2 206 H 177 H D 80 L D ABG HCO3 22 22 22 ABG O2 Saturation 100 H 100 H 97 ABG Base Excess 0 0 -2 VBG pH VBG pCO2 VBG pO2 VBG Base Excess 05/20/24 05/22/24 05/23/24 04:55 09:46 08:05 ABG pH 7.43 ABG pCO2 32 ABG pO2 102 D ABG HCO3 21 ABG O2 Saturation 99 H ABG Base Excess -3 VBG pH 7.36 7.42 VBG pCO2 25 L 24 L VBG pO2 120 H 58 D VBG Base Excess -10 L -8 L Quality Measures Quality Measures VTE prophylaxis Assessment & Plan Assessment Current Active Medications: Generic Name Dose Route Start Last Admin Trade Name Freq PRN Reason Stop Dose Admin Albuterol/Ipratropium 3 ml 05/20/24 15:53 05/25/24 10:48 Albuterol/Ipratropium (Duoneb) Rt Irina 3 Ml Nebu INH 06/19/24 15:52 3 ml Q6HRRT PRN Administration SHORTNESS OF BREATH OR WHEEZE Cholestyramine Resin 1 pkt 05/18/24 21:00 05/27/24 08:47 Cholestyramine/Sucrose 1 Pkt Ea PO 06/17/24 20:59 1 pkt BID SREE Administration Dextrose 25 ml 05/15/24 01:22 Dextrose 50%-Water Inj 50 Ml Syringe IV 06/14/24 01:21 Q15MIN PRN BG 50-70 responsive npo pt Dextrose 50 ml 05/15/24 01:22 Dextrose 50%-Water Inj 50 Ml Syringe IV 06/14/24 01:21 Q15MIN PRN BG <50 OR BG <70 & pt unresponsive Glucagon 1 mg 05/15/24 01:22 Glucagon Inj 1 Mg Vial IM Q15MIN PRN BG <70, and no IV access Albumin Human 25 gm in 100 mls @ 100 mls/hr 05/26/24 09:00 05/27/24 08:47 Albuminar-25 Ivpb IV 05/29/24 08:59 100 mls/hr QDAY SREE Administration Protocol Octreotide Acetate 1,000 mcg/ 102 mls @ 5.1 mls/hr 05/24/24 09:23 05/26/24 23:44 Sodium Chloride IV 05/29/24 09:23 50 mcg/hr .Q20H SREE 5.1 mls/hr Administration Protocol 50 MCG/HR Ceftriaxone Sodium/Dextrose 2 gm in 50 mls @ 100 mls/hr 05/25/24 09:00 05/27/24 09:51 Rocephin/D5w 2gm IV 06/01/24 08:59 100 mls/hr QDAY SREE Administration Fat Emulsion Intravenous 500 mls @ 32 mls/hr 05/24/24 18:00 05/26/24 18:02 Intralipid 20% Iv IV 06/23/24 17:59 16 mls/hr [id number]@1800 SREE Administration Multivitamins/Minerals 10 ml/ 1,025 mls @ 27.5 mls/hr 05/26/24 18:00 05/26/24 17:49 Potassium Acetate 30 meq/ IV 05/27/24 17:59 27.5 mls/hr Amino Acids QDAY@1800 [facility] Administration Sodium Bicarbonate 88.23 meq/ 588.23 mls @ 100 mls/hr 05/27/24 07:43 Dextrose IV 06/26/24 07:42 .Q5H53M [facility] Insulin Human Lispro 0 unit 05/25/24 00:00 05/27/24 05:37 Insulin Lispro (Admelog) 1 Unit/0.01 Ml Unit SC 06/24/24 00:00 Not Given Q6HR [facility] Protocol Midodrine 10 mg 05/24/24 14:00 05/27/24 05:33 Midodrine 5 Mg Tablet PO 06/23/24 13:59 Not Given TID [facility] Ondansetron HCl 4 mg 05/15/24 01:17 05/15/24 05:46 Ondansetron Inj 2 Mg/Ml Inj 2 Ml IV 06/14/24 01:16 4 mg Q6H PRN Administration NAUSEA OR VOMITING Protocol Pantoprazole Sodium 40 mg 05/27/24 10:32 Pantoprazole Inj 40 Mg Vial IV 06/26/24 10:29 BID SREE Rifaximin 550 mg 05/22/24 09:00 05/27/24 08:47 Rifaximin 550 Mg Tablet PO 05/29/24 08:59 550 mg BID SREE Administration Simethicone 80 mg 05/22/24 18:00 05/27/24 05:38 Simethicone 80 Mg Chew PO 06/21/24 17:59 80 mg QID SREE Administration Sodium Bicarbonate 650 mg 05/22/24 09:00 05/27/24 08:47 Sodium Bicarbonate 650 Mg Tablet PO 06/21/24 08:59 650 mg BID SREE Administration Plan Benjamin Villarreal is a 59-year-old male with PMHX of alcohol use disorder, esophageal varices s/p banding, hypertension, hyperlipidemia, DM2, HFpEF (EF 55 to 60%) and biliary dyskinesia who was admitted 05/15 after coming to ED with complaints of black starry stools and witnessed bloody emesis. On 05/15, patient had rapid response for large volume, dark-colored bloody stool and was upgraded to ICU for pressor support and mechanical ventilation for airway management. He has thus far been extubated and off pressors and downgraded to floors on 05/19 for further management. He has received a total of 8 units PRBC, 2 units FFP, and 2 units of platelets. After being downgraded, patient noted to become significantly more distended with worsening kidney function and found to have intra-abdominal hypertension. He was then upgraded to the ICU for further management but again downgraded to floors on 05/26. #Acute decompensated cirrhosis #Cirrhosis secondary to EtOH #History of alcohol use disorder #Esophageal varices status post band ligation (05/17, 05/24) #Hemorrhagic shock, resolved Initial hemoglobin of 5.8 and received total of 8 units PRBC, 2 units FFP, and 2 units platelets. EGD on 05/17: grade 2 varices s/p band ligation and diffuse mucosal oozing in setting of hypertensive portal gastropathy with blood clots in proximal body of stomach. EGD on 05/24: grade 3 varices s/p band ligation MELD Na score 42 -> 65% estmated 3-month mortality Child-Garcai score 12 (Child class C) -> 1-3 year life epectancy and 82% tamara- operative abdominal surgery mortality ? GI following, appreciate recommendations ? Octreotide drip (05/24-) ? Protonix 40 mg IV twice daily #Acute kidney injury secondary to ATN vs hepatorenal syndrome #Anion gap metabolic acidosis #Lactic acidosis #Azotemia HCO3 downtrending. Suspect greater component of renal failure and uremia/azotemia rather than lactic acidosis. ATN secondary to hypotension from shock vs hepatorenal syndrome. Previously underwent albumin challenge during previos ICU stay and improved with albumin, suggesting prerenal etiology of JEANIE. ? Nephrology consulted, appreciate recommendations ? Midodrine 10 mg PO TID PRN ? Albumin 25 g IV daily ? Sodium bicarbonate 650 mg PO BID ? Avoid nephrotoxic agents, renally dose medications #Streptococcus anginosus bacteremia Blood cultures 05/14: 2/2 bottles positive for Strep anginosus Blood culture 05/16: negative Vancomycin discontinued (05/21-05/23) ? Infectious disease following, appreciate recommendations ? Ceftriaxone 2 g IV daily #Intra-abdominal hypertension Concerns for intra-abdominal hypertension given findings of decreased UOP, worsening renal function, and increasing leukocytosis in setting of distended abdomen. S/p NG tube on LIS-with overall improvement in bladder pressures (initial pressure of 20 now 15) with improvement in UOP. NGT now discontinued s/p EGD. NG tube output of approximately 300 cc of dark-colored blood with downtrending hemoglobin from 10.9 to 9.1. #Hepatic encephalopathy #Hyperammonemia ? Increased lactulose 20 g PO 3 times daily ? Titrate to 2-3 bowel movements ? Rifaximin 550 mg via NG BID #Hyperbilirubinemia ? Cholestyramine 1 packet PO BID #HFpEF Hold on diuresis for now as patient does not appear to be volume overload. #Type 2 diabetes mellitus A1c 6.7% on 04/2024. ? SSI ? Hypoglycemic protocol in place #? Seizures EEG on 05/19 obscured from artifact and will follow-up repeat EEG. Repeat EEG showed normal study. ? Neurology consulted, appreciate recommendations #Hypertonic hypernatremia, resolved #Hypokalemia, resolved #Hypercalcemia, resolved #Hperphosphatemia, resolved Hospital management: Disposition: downgraded to floors for further management, pending [facility] discussion with son(s) Fluids: none Tubes: NGT and Sanchez DC'd Diet: NPO Lines: PIV DVT prophylaxis: SCDs GI prophylaxis: pantoprazole 40 mg IV BID Sanchez: placed CODE STATUS: full code ----- Plan discussed with attending physician Dr. Vuong and senior resident physician Dr. Kenneth Simons MD PGY-1 Internal Medicine Attending Provider Attestation/Addendum I reviewed labs, imaging, EKG, home medications and prior available records. Face to face evaluation was performed by me. I have personally examined the patient and discussed assessment and plan with the IM team. I reviewed the resident note and agree with the plan with exceptions as below. Decompensating liver cirrhosis Hemorrhagic shock, off pressors and downgraded from ICU Upper GI bleed, status post 3 EGDs, status post banding Gram-positive bacteremia/sepsis Acute hypoxic respiratory failure Abdominal distention JEANIE, hepatorenal versus ATN Goals of care discussion/counseling Continue IV Protonix Continue IV octreotide Monitor H&H closely Continue rifaximin Held lactulose in the setting of abdominal distention Difficult to drain the ascites Nephrology consulted: May attempt hemodialysis given the volume overload and poor kidney function Repeat blood cultures negative in 48 hours. Continue IV ceftriaxone Discussed with social service assistant: His son Benjamin Booth is the decision-maker. Discussed the goals of care. See event note. Will continue full code. Son is aware of poor prognosis Avoid alcohol use Outpatient follow-up with hepatology
--- NOTE | 2024-05-27 14:54 | XR_ITS ---
Examination: AP chest single view Technique one AP portable semiupright chest single view Exam date and time: May 27, 2024 1559 hours Comparison May 24, 2024 INDICATIONS: Shortness of breath difficulty breathing today. FINDINGS: Mild enlargement cardiac contour Prominent vascular congestion Extensive opacity in the right upper lobe IMPRESSION: Significant pneumonia in the right upper lobe Mild heart failure
[2024-05-27] MEDS: LEVALBUTEROL RT 1.25 MG/0.5 ML NEBU INH (15:44)
[2024-05-27] MEDS: IPRATROPIUM RT 0.5 MG/ 2.5 ML NEBU INH (15:44)
--- NOTE | 2024-05-27 15:58 | PD.RESPRO ---
Documentation for date of: 05/27/24 Subjective Subjective Interval history: Mr. Villarreal is a 59-year-old male with past medical history of alcohol use disorder, esophageal varices s/p banding, hypertension, hyperlipidemia, diabetes mellitus, HFpEF, biliary dyskinesia admitted to the hospital on 05/15/2024 with complaints of black tarry stools and bloody emesis. Initially patient was started on octreotide and Protonix drip. Later patient was transferred to the ICU on the same day and patient received multiple units of PRBC transfusion, platelet transfusion following which NG tube was placed and EGD was done By Dr. Calabrese for which patient was intubated as patient is clenching his mouth and not able to open his jaw. EGD done at that time showed diffuse blood oozing from everywhere. Later tried to transfer to higher centers for TIPS but patient was not accepted to higher care center. During ICU stay, patient developed JEANIE for which patient received albumin infusions, octreotide following which JEANIE resolved which could be due to prerenal from hemorrhagic shock. Patient was later extubated and downgraded to floors for further management. Patient was found to have elevated blood pressure of 20 for which primary team suspected abdominal compartment syndrome due to ileus and patient was transferred to ICU Nephrology was consulted for worsening renal function 05/24/2024 Patient is seen and examined at bedside in the ICU. French-speaking Vitals are stable. On physical examination, noted severe abdominal distention with no peripheral edema noted Labs showed WBC 19, Hb 8.5, platelets 50, INR 2.4, sodium 140 [place], chloride 115, bicarb 15, anion gap 17, BUN 52, creatinine 3.4, lactate 2.2, total bilirubin 34.7 Noted to have a urine output of 250 mL since this morning, total 750 mL in last 24 hours Recommended to start albumin-1 g/kg and continue midodrine for 48 hours Patient appears to be intravascularly volume depleted as patient is on NG tube suction and rectal tube on lactulose 05/25/2024 Patient is seen and examined at the bedside in the ICU. Patient looks sicker than yesterday Vitals are stable. Patient is receiving peripheral parenteral nutrition. Got endoscopy yesterday and found to have Grade III esophageal varices and ligated by Dr. calabrese Patient is able to maintain adequate urine output. But noted to have severe abdominal distention, resonant on percussion, likely due to ileus Recommended to decrease the quantity of infusions by concentrating the medications Labs showed worsening renal functions with sodium 146, chloride 115, BUN 65, creatinine 3.6, lactate 2.5, total bilirubin 32.1, AST 51, ALT 50, albumin 3.1 Fractional excretion of sodium is 4.3%, that could be suggesting ATN Recommended to continue to give albumin infusions for now and continue PPN 05/26/2024 Patient is seen and examined bedside in the ICU. No acute overnight events. Denies any other complaints. Vitals all stable even without vasopressor. Patient noted to have adequate amount of urine around 2000 mL despite worsening renal functions on lab work Abdomen looks less distended when compared to yesterday. Patient is taken off lactulose. Labs done today showed WBC 9.4, Hb 7.4, platelets 31, sodium 147, potassium 3.2, chloride 117, bicarb 15.2, BUN 62, creatinine 3.8, total bilirubin 31 Recommended to continue to monitor urine output and renal functions Will do dialysis if patient's renal function continues to deteriorate 05/27/2024 Patient is seen and examined at bedside in the telemetry No acute overnight events. Denies any other complaints. Vitals are stable. On physical examination, patient still appears icteric with abdominal distention, mildly improving Labs done today showed WBC 16.4, Hb 8, platelets 34, INR 2.8, sodium 145, potassium 4.1, chloride 117, bicarb 12.4, BUN 63, creatinine 3.2, lactate 2.7, total bilirubin 33.4 Patient still appears to have overall poor prognosis but as the patient renal functions appears to be improving with adequate urine output, no need of dialysis for now Patient is started on bicarb drip as he is acidotic with bicarb of 12.4 and started on Aldactone 25 Mg twice daily. Continue rifaximin Exam Vital Signs Temp Pulse Resp BP Pulse Ox O2 Del Method O2 Flow Rate 97.9 F 77 24 H 116/64 100 Room Air 3 05/27/24 12:00 05/27/24 15:46 05/27/24 15:46 05/27/24 13:28 05/27/24 15:46 05/27/24 12:00 05/24/24 20:50 FiO2 30 05/22/24 00:00 Narrative Exam General: Awake. Icteric HEENT: Normocephalic, atraumatic, mucous membranes moist. Heart: Regular rate and rhythm, no murmurs. Lungs: Clear to auscultation with no wheezing or crackles. Abdomen: Soft, severely distended, nontender, decreased bowel sounds. ?No guarding or rebound tenderness. Neurologic: Alert and oriented x3, no gross neurological deficit, and patient able to move all 4 extremities. Extremities: Right upper extremity edema. Skin: Ecchymotic patches noted Objective Labs 05/27/24 05:15 05/27/24 05:15 Labs: Laboratory Results - last 24 hr 05/27/24 05/27/24 05:15 09:15 WBC 16.4 H D RBC 2.69 L Hgb 8.0 L Hct 25.2 L MCV 94 MCH 29.7 MCHC 31.7 RDW Std Deviation 74.2 H Plt Count 34 L Neut % (Auto) 81 H Lymph % (Auto) 9 L [place] % (Auto) 5 Eos % (Auto) 1 Baso % (Auto) 0 Neut # (Auto) 13.2 H Lymph # (Auto) 1.5 [place] # (Auto) 0.9 H Eos # (Auto) 0.1 Baso # (Auto) 0.1 Immature Gran # (Auto) 0.58 H Absolute Nucleated RBC 0.08 H Immature Gran % 4 H Nucleated RBC % 1 H PT 28.5 H INR 2.8 H APTT 65.8 H Sodium 145 Potassium 4.1 D Chloride 117 H Carbon Dioxide 12.4 L* Anion Gap 16 BUN 63 H Creatinine 3.2 H D Estim Creat Clear Calc 23.3 L eGFR 21 L BUN/Creatinine Ratio 20 Glucose 115 H Calculated Osmolality 307 H Lactic Acid 2.1 H 2.7 H Calcium 9.5 Corrected Calcium 10.1 Phosphorus 3.6 Magnesium 2.0 Total Bilirubin 33.4 H* D AST 61 H ALT 37 Alkaline Phosphatase 110 Total Protein 5.4 L Albumin 3.3 L Globulin 2.1 L Albumin/Globulin Ratio 1.6 Free T4 0.62 L Misc Test Result Platelets confirmed ABG Interpretation ABG results: 05/15/24 05/15/24 05/15/24 08:45 14:25 16:08 ABG pH 7.31 L 7.04 L* D 7.22 L D ABG pCO2 20 L 58 H D 35 D ABG pO2 116 H 330 H D 63 L D ABG HCO3 10 L 16 L 14 L ABG O2 Saturation 98 99 H 89 L ABG Base Excess -15 L -15 L -13 L VBG pH VBG pCO2 VBG pO2 VBG Base Excess 05/15/24 05/16/24 05/16/24 19:03 04:05 05:05 ABG pH 7.27 L 7.43 D 7.48 H ABG pCO2 27 L 56 H D 23 L D ABG pO2 85 D 160 H D 191 H D ABG HCO3 12 L 37 H 17 L ABG O2 Saturation 96 101 H 100 H ABG Base Excess -13 L 11 H -5 L VBG pH VBG pCO2 VBG pO2 VBG Base Excess 05/16/24 05/16/24 05/16/24 11:34 14:20 18:35 ABG pH 7.49 H 7.52 H 7.55 H ABG pCO2 27 L 26 L 25 L ABG pO2 173 H 160 H 201 H D ABG HCO3 21 21 21 ABG O2 Saturation 100 H 100 H 100 H ABG Base Excess -2 -1 0 VBG pH VBG pCO2 VBG pO2 VBG Base Excess 05/16/24 05/17/24 05/19/24 21:53 11:34 05:05 ABG pH 7.55 H 7.54 H 7.44 D ABG pCO2 25 L 26 L 32 ABG pO2 206 H 177 H D 80 L D ABG HCO3 22 22 22 ABG O2 Saturation 100 H 100 H 97 ABG Base Excess 0 0 -2 VBG pH VBG pCO2 VBG pO2 VBG Base Excess 05/20/24 05/22/24 05/23/24 04:55 09:46 08:05 ABG pH 7.43 ABG pCO2 32 ABG pO2 102 D ABG HCO3 21 ABG O2 Saturation 99 H ABG Base Excess -3 VBG pH 7.36 7.42 VBG pCO2 25 L 24 L VBG pO2 120 H 58 D VBG Base Excess -10 L -8 L Quality Measures Quality Measures VTE prophylaxis Assessment & Plan Assessment Current Active Medications: Generic Name Dose Route Start Last Admin Trade Name Freq PRN Reason Stop Dose Admin Albuterol/Ipratropium 3 ml 05/20/24 15:53 05/25/24 10:48 Albuterol/Ipratropium (Duoneb) Rt Irina 3 Ml Nebu INH 06/19/24 15:52 3 ml Q6HRRT PRN Administration SHORTNESS OF BREATH OR WHEEZE Cholestyramine Resin 1 pkt 05/18/24 21:00 05/27/24 08:47 Cholestyramine/Sucrose 1 Pkt Ea PO 06/17/24 20:59 1 pkt BID SREE Administration Dextrose 25 ml 05/15/24 01:22 Dextrose 50%-Water Inj 50 Ml Syringe IV 06/14/24 01:21 Q15MIN PRN BG 50-70 responsive npo pt Dextrose 50 ml 05/15/24 01:22 Dextrose 50%-Water Inj 50 Ml Syringe IV 06/14/24 01:21 Q15MIN PRN BG <50 OR BG <70 & pt unresponsive Furosemide 40 mg 05/27/24 15:58 Furosemide Inj 10 Mg/Ml 4ml Vial IVP 05/27/24 15:59 X1 ONE Glucagon 1 mg 05/15/24 01:22 Glucagon Inj 1 Mg Vial IM Q15MIN PRN BG <70, and no IV access Albumin Human 25 gm in 100 mls @ 100 mls/hr 05/26/24 09:00 05/27/24 08:47 Albuminar-25 Ivpb IV 05/29/24 08:59 100 mls/hr QDAY SREE Administration Protocol Octreotide Acetate 1,000 mcg/ 102 mls @ 5.1 mls/hr 05/24/24 09:23 05/26/24 23:44 Sodium Chloride IV 05/29/24 09:23 50 mcg/hr .Q20H SREE 5.1 mls/hr Administration Protocol 50 MCG/HR Ceftriaxone Sodium/Dextrose 2 gm in 50 mls @ 100 mls/hr 05/25/24 09:00 05/27/24 09:51 Rocephin/D5w 2gm IV 06/01/24 08:59 100 mls/hr QDAY SREE Administration Fat Emulsion Intravenous 500 mls @ 32 mls/hr 05/24/24 18:00 05/26/24 18:02 Intralipid 20% Iv IV 06/23/24 17:59 16 mls/hr [email or web address] SREE Administration Multivitamins/Minerals 10 ml/ 1,025 mls @ 27.5 mls/hr 05/26/24 18:00 05/26/24 17:49 Potassium Acetate 30 meq/ IV 05/27/24 17:59 27.5 mls/hr Amino Acids QDAY@1800 SREE Administration Sodium Bicarbonate 88.23 meq/ 588.23 mls @ 100 mls/hr 05/27/24 07:43 05/27/24 09:05 Dextrose IV 06/26/24 07:42 100 mls/hr .Q5H53M SREE Administration Multivitamins/Minerals 10 ml/ 1,020 mls @ 27.5 mls/hr 05/27/24 18:00 Potassium Acetate 20 meq/ IV 05/28/24 17:59 Amino Acids QDAY@1800 SREE Insulin Human Lispro 0 unit 05/25/24 00:00 05/27/24 12:41 Insulin Lispro (Admelog) 1 Unit/0.01 Ml Unit SC 06/24/24 00:00 Not Given Q6HR SREE Protocol Midodrine 10 mg 05/24/24 14:00 05/27/24 13:28 Midodrine 5 Mg Tablet PO 06/23/24 13:59 Not Given TID [facility] Ondansetron HCl 4 mg 05/15/24 01:17 05/15/24 05:46 Ondansetron Inj 2 Mg/Ml Inj 2 Ml IV 06/14/24 01:16 4 mg Q6H PRN Administration NAUSEA OR VOMITING Protocol Pantoprazole Sodium 40 mg 05/27/24 10:32 Pantoprazole Inj 40 Mg Vial IV 06/26/24 10:29 BID SREE Rifaximin 550 mg 05/22/24 09:00 05/27/24 08:47 Rifaximin 550 Mg Tablet PO 05/29/24 08:59 550 mg BID SREE Administration Simethicone 80 mg 05/22/24 18:00 05/27/24 12:46 Simethicone 80 Mg Chew PO 06/21/24 17:59 80 mg QID SREE Administration Sodium Bicarbonate 650 mg 05/22/24 09:00 05/27/24 08:47 Sodium Bicarbonate 650 Mg Tablet PO 06/21/24 08:59 650 mg BID SREE Administration Sodium Chloride 3 ml 05/27/24 14:54 Sodium Chloride Rt Irina 0.9% 3 Ml Nebu INH 06/26/24 14:53 PRN PRN SOLN Plan A 59-year-old male with past medical history of alcohol use disorder, esophageal varices s/p banding, hypertension, hyperlipidemia, diabetes mellitus, HFpEF, biliary dyskinesia admitted to the hospital on 05/15/2024 with complaints of black tarry stools and bloody emesis and consulted for JEANIE # Acute kidney injury, resolving Likely ATN from GI losses due to drop in blood pressures versus HRS in the setting of decompensated liver disease -Patient is admitted to the hospital with decompensated liver disease with variceal bleeding -Patient developed JEANIE at the time of admission which resolved with IV albumin and octreotide -Patient was downgraded to floors but as the patient is having severe abdominal distention patient was upgraded to ICU with the suspicion of abdominal compartment syndrome from ileus -Patient found to have worsening renal functions with uptrending creatinine from 05/22/2024, Cr 1.4> 05/23, Cr 2.3 > 05/24, Cr 3.4 > 05/27, Cr 3.2 -Patient found to have adequate urine output as of 05/25/2024 -renal ultrasound showed bilateral renal parenchymal disease -Fractional excretion of sodium is 4.3%, which is suggestive of intrinsic disease, likely ATN in the setting of acute illness Plan -Avoid nephrotoxic medications and renally dose medications -Monitor blood pressures and strict urine input/output -Will do dialysis if patient's renal function continues to deteriorate -Started on Aldactone 25 Mg p.o. twice daily -Continue rifaximin Patient overall likely to have a poor prognosis in the setting of decompensated liver disease, worsening renal functions, worsening respiratory functions. # Hypernatremia,resolved # hyperchloremia, rsolving Likely from the intravascular dehydration -As of 05/27/2024, sodium is 145, chloride 117 Plan -Continue albumin infusions -Monitor input and output -Continue to monitor electrolytes # Metabolic acidosis # Lactic acidosis Likely due to combined intravascular dehydration, GI losses and JEANIE. -Started on sodium bicarbonate tablets 650 Mg p.o. twice daily Plan -Started on bicarb drip # Hyperphosphatemia -Phosphorus is 5.8 as of 05/24/2024 -Likely due to JEANIE, monitor phosphorus levels #mixed hypovolemic(class 3 hemorrhagic shock) +septic shock-resolved #History of hypertension #History of hyperlipidemia #HFpEF 55 to 60% #Acute GI bleed #History of grade 3 esophageal varices status post banding #History of alcohol use disorder #Cirrhosis #Acute on chronic liver failure #Hyperbilirubinemia #Hyperammonemia #Hypoalbuminemia #Ascites #Abdominal distention -Rest of the medical conditions to be treated as per ICU team Thank you for allowing us to involved in the care of the patient Patient plan of care was discussed with the attending physician, Dr. Michelle Stack, PGY1 Attending Provider Attestation/Addendum Patient seen and examined with resident physician Dr. Kunz. Note reviewed, agree with findings and recommendations. Patient currently seen in ICU. Patient alert and awake although very weak. He had a prolonged hospital course. Worsening decompensated liver cirrhosis with GI bleed from varices, significant elevation in bilirubin, hepatic encephalopathy, hypotension, ascites, hypoalbuminemia, anemia, thrombocytopenia and now with elevated creatinine. Patient clinically looks rather dehydrated. Agree with fluids, octreotide, albumin and midodrine. Currently on TPN. Rate decreased to half. Creatinine continues to be worsening despite volume resuscitation-patient seems to be in hepatorenal syndrome. No family around. My understanding cannot be reached. HRS-prognosis remains poor. Plan of care discussed with ICU team. Not sure if he is a candidate for dialysis. Not a liver transplant candidate at this point . critical care time spent more than 40 minutes regarding plan of care and disease management. 05/27/2024 Status post banding by Dr. Calabrese. Abdomen still distended. No bowel movement-resume lactulose. Recommended primary team to start rifaximin. Urine output acceptable. Creatinine still elevated. Patient currently in ATN. No need for emergency dialysis. Plan of care discussed with primary team. Overall prognosis remains guarded.
[2024-05-27] MEDS: FUROSEMIDE INJ 10 MG/ML 4ML VIAL 40 MG IVP (16:04)
--- NOTE | 2024-05-27 16:53 | ESPR_ITS ---
Documentation for date of: 05/27/24 Subjective Subjective Interval history: Patient seen and assessed at bedside. Patient just completed breathing treatment. Patient denies any active complaints. Exam Vital Signs Temp Pulse Resp BP Pulse Ox O2 Del Method O2 Flow Rate 97.9 F 75 24 H 125/74 100 Room Air 3 05/27/24 12:00 05/27/24 16:04 05/27/24 15:46 05/27/24 16:04 05/27/24 15:46 05/27/24 12:00 05/24/24 20:50 FiO2 30 05/22/24 00:00 Narrative Exam General: laying in bed comfortably, jaundiced, ill-appearing HEENT: scleral icterus Cardiovascular: regular rate and rhythm, systolic murmur appreciated. Pulmonary: Mild wheezing on auscultation lower lobes during exhalation. Musculoskeletal: normal ROM, no peripheral edema Skin: jaundiced, warm and dry, intact, no rashes Neuro: Alert and oriented x 3, no focal neurological deficits noted. Objective Labs 05/27/24 05:15 05/27/24 05:15 Labs: Laboratory Results - last 24 hr 05/27/24 05/27/24 05:15 09:15 WBC 16.4 H D RBC 2.69 L Hgb 8.0 L Hct 25.2 L MCV 94 MCH 29.7 MCHC 31.7 RDW Std Deviation 74.2 H Plt Count 34 L Neut % (Auto) 81 H Lymph % (Auto) 9 L [place] % (Auto) 5 Eos % (Auto) 1 Baso % (Auto) 0 Neut # (Auto) 13.2 H Lymph # (Auto) 1.5 [place] # (Auto) 0.9 H Eos # (Auto) 0.1 Baso # (Auto) 0.1 Immature Gran # (Auto) 0.58 H Absolute Nucleated RBC 0.08 H Immature Gran % 4 H Nucleated RBC % 1 H PT 28.5 H INR 2.8 H APTT 65.8 H Sodium 145 Potassium 4.1 D Chloride 117 H Carbon Dioxide 12.4 L* Anion Gap 16 BUN 63 H Creatinine 3.2 H D Estim Creat Clear Calc 23.3 L eGFR 21 L BUN/Creatinine Ratio 20 Glucose 115 H Calculated Osmolality 307 H Lactic Acid 2.1 H 2.7 H Calcium 9.5 Corrected Calcium 10.1 Phosphorus 3.6 Magnesium 2.0 Total Bilirubin 33.4 H* D AST 61 H ALT 37 Alkaline Phosphatase 110 Total Protein 5.4 L Albumin 3.3 L Globulin 2.1 L Albumin/Globulin Ratio 1.6 Free T4 0.62 L Misc Test Result Platelets confirmed ABG Interpretation ABG results: 05/15/24 05/15/24 05/15/24 08:45 14:25 16:08 ABG pH 7.31 L 7.04 L* D 7.22 L D ABG pCO2 20 L 58 H D 35 D ABG pO2 116 H 330 H D 63 L D ABG HCO3 10 L 16 L 14 L ABG O2 Saturation 98 99 H 89 L ABG Base Excess -15 L -15 L -13 L VBG pH VBG pCO2 VBG pO2 VBG Base Excess 05/15/24 05/16/24 05/16/24 19:03 04:05 05:05 ABG pH 7.27 L 7.43 D 7.48 H ABG pCO2 27 L 56 H D 23 L D ABG pO2 85 D 160 H D 191 H D ABG HCO3 12 L 37 H 17 L ABG O2 Saturation 96 101 H 100 H ABG Base Excess -13 L 11 H -5 L VBG pH VBG pCO2 VBG pO2 VBG Base Excess 05/16/24 05/16/24 05/16/24 11:34 14:20 18:35 ABG pH 7.49 H 7.52 H 7.55 H ABG pCO2 27 L 26 L 25 L ABG pO2 173 H 160 H 201 H D ABG HCO3 21 21 21 ABG O2 Saturation 100 H 100 H 100 H ABG Base Excess -2 -1 0 VBG pH VBG pCO2 VBG pO2 VBG Base Excess 05/16/24 05/17/24 05/19/24 21:53 11:34 05:05 ABG pH 7.55 H 7.54 H 7.44 D ABG pCO2 25 L 26 L 32 ABG pO2 206 H 177 H D 80 L D ABG HCO3 22 22 22 ABG O2 Saturation 100 H 100 H 97 ABG Base Excess 0 0 -2 VBG pH VBG pCO2 VBG pO2 VBG Base Excess 05/20/24 05/22/24 05/23/24 04:55 09:46 08:05 ABG pH 7.43 ABG pCO2 32 ABG pO2 102 D ABG HCO3 21 ABG O2 Saturation 99 H ABG Base Excess -3 VBG pH 7.36 7.42 VBG pCO2 25 L 24 L VBG pO2 120 H 58 D VBG Base Excess -10 L -8 L Quality Measures Quality Measures VTE prophylaxis Assessment & Plan Assessment Current Active Medications: Generic Name Dose Route Start Last Admin Trade Name Freq PRN Reason Stop Dose Admin Albuterol/Ipratropium 3 ml 05/20/24 15:53 05/25/24 10:48 Albuterol/Ipratropium (Duoneb) Rt Irina 3 Ml Nebu INH 06/19/24 15:52 3 ml Q6HRRT PRN Administration SHORTNESS OF BREATH OR WHEEZE Cholestyramine Resin 1 pkt 05/18/24 21:00 05/27/24 08:47 Cholestyramine/Sucrose 1 Pkt Ea PO 06/17/24 20:59 1 pkt BID SREE Administration Dextrose 25 ml 05/15/24 01:22 Dextrose 50%-Water Inj 50 Ml Syringe IV 06/14/24 01:21 Q15MIN PRN BG 50-70 responsive npo pt Dextrose 50 ml 05/15/24 01:22 Dextrose 50%-Water Inj 50 Ml Syringe IV 06/14/24 01:21 Q15MIN PRN BG <50 OR BG <70 & pt unresponsive Glucagon 1 mg 05/15/24 01:22 Glucagon Inj 1 Mg Vial IM Q15MIN PRN BG <70, and no IV access Albumin Human 25 gm in 100 mls @ 100 mls/hr 05/26/24 09:00 05/27/24 08:47 Albuminar-25 Ivpb IV 05/29/24 08:59 100 mls/hr QDAY SREE Administration Protocol Octreotide Acetate 1,000 mcg/ 102 mls @ 5.1 mls/hr 05/24/24 09:23 05/26/24 23:44 Sodium Chloride IV 05/29/24 09:23 50 mcg/hr .Q20H SREE 5.1 mls/hr Administration Protocol 50 MCG/HR Ceftriaxone Sodium/Dextrose 2 gm in 50 mls @ 100 mls/hr 05/25/24 09:00 05/27/24 09:51 Rocephin/D5w 2gm IV 06/01/24 08:59 100 mls/hr QDAY SREE Administration Fat Emulsion Intravenous 500 mls @ 32 mls/hr 05/24/24 18:00 05/26/24 18:02 Intralipid 20% Iv IV 06/23/24 17:59 16 mls/hr [email or web address] [facility] Administration Multivitamins/Minerals 10 ml/ 1,025 mls @ 27.5 mls/hr 05/26/24 18:00 05/26/24 17:49 Potassium Acetate 30 meq/ IV 05/27/24 17:59 27.5 mls/hr Amino Acids QDAY@1800 SREE Administration Sodium Bicarbonate 88.23 meq/ 588.23 mls @ 100 mls/hr 05/27/24 07:43 05/27/24 09:05 Dextrose IV 06/26/24 07:42 100 mls/hr .Q5H53M [facility] Administration Multivitamins/Minerals 10 ml/ 1,020 mls @ 27.5 mls/hr 05/27/24 18:00 Potassium Acetate 20 meq/ IV 05/28/24 17:59 Amino Acids QDAY@1800 [facility] Insulin Human Lispro 0 unit 05/25/24 00:00 05/27/24 12:41 Insulin Lispro (Admelog) 1 Unit/0.01 Ml Unit SC 06/24/24 00:00 Not Given Q6HR [facility] Protocol Midodrine 10 mg 05/24/24 14:00 05/27/24 13:28 Midodrine 5 Mg Tablet PO 06/23/24 13:59 Not Given TID [facility] Ondansetron HCl 4 mg 05/15/24 01:17 05/15/24 05:46 Ondansetron Inj 2 Mg/Ml Inj 2 Ml IV 06/14/24 01:16 4 mg Q6H PRN Administration NAUSEA OR VOMITING Protocol Pantoprazole Sodium 40 mg 05/27/24 10:32 Pantoprazole Inj 40 Mg Vial IV 06/26/24 10:29 BID [facility] Rifaximin 550 mg 05/22/24 09:00 05/27/24 08:47 Rifaximin 550 Mg Tablet PO 05/29/24 08:59 550 mg BID [facility] Administration Simethicone 80 mg 05/22/24 18:00 05/27/24 12:46 Simethicone 80 Mg Chew PO 06/21/24 17:59 80 mg QID [facility] Administration Sodium Bicarbonate 650 mg 05/22/24 09:00 05/27/24 08:47 Sodium Bicarbonate 650 Mg Tablet PO 06/21/24 08:59 650 mg BID SREE Administration Sodium Chloride 3 ml 05/27/24 14:54 Sodium Chloride Rt Irina 0.9% 3 Ml Nebu INH 06/26/24 14:53 PRN PRN SOLN Spironolactone 25 mg 05/27/24 21:00 Spironolactone 25 Mg Tablet PO 06/26/24 20:59 BID SREE Plan #Acute encephalopathy?improved Metabolic VS VS infectious VS toxic Continue with antibiotics Repeat EEG showed normal finding. Patient appears to be at baseline. Continue with lactulose and rifaximin #Upper GI bleed #Anemia #Cirrhosis #Diabetes mellitus #Hypertension #Hyperbilirubinemia #Transaminitis #Bacteremia #Hepatic encephalopathy Continue management per primary team Case discussed with attending Dr Michelle Valdovinos MD PGY3
--- NOTE | 2024-05-27 18:19 | PC.NURSE ---
patient bleeding from his mouth . is aware.
--- NOTE | 2024-05-27 18:23 | PD.RESEVENT ---
Documentation for date of: 05/27/24 Event Note Event Note: Goals of care discussion occurred as patient's clinical status has continued to remain guarded with bilingual social worker and senior resident present. It was explained that his liver function has remained significantly impaired, evidenced through his coagulation panels, platelet count, ammonia, amongst other laboratory values and that it was now affecting his renal function and mentation. Given these findings, amongst others, it was further explained that his clinical status may deteriorate further. At this time patient's son, Benjamin Jordan, was also contacted via phone call. Medicine team explained patient's hospital course, procedures done, care plan, as well as attempt made to transfer patient to higher level of care, and despite this, patient's condition has remained guarded. Son expressed understanding of his father's situation and all questions were answered. ----- Conversation shared with attending physician Dr. Vuong and senior resident physician Dr. Kenneth Simons MD PGY-1 Internal Medicine
[2024-05-27] MEDS: ALBUTEROL/IPRATROPIUM (Duoneb) RT SOL 3 ML NEBU INH (18:40)
[2024-05-27] MEDS: PANTOPRAZOLE INJ 40 MG VIAL IV (21:09)
[2024-05-27] MEDS: SPIRONOLACTONE 25 MG TABLET PO (21:09)
[2024-05-27] MEDS: OCTREOTIDE ACET INJ 1,000 MCG in SODIUM CHLORIDE 0.9% 100 ML 5.1 MCG IV (21:11)
--- NOTE | 2024-05-27 22:26 | PC.NURSE ---
Soumya alston called at approximately 2226. Patient had no pulses and vomiting large amounts of blood.
--- NOTE | 2024-05-27 22:58 | PD.RESEVENT ---
Documentation for date of: 05/27/24 Event Note Event Note: At around 1030 PM, CODE BLUE was initiated for pt as he started to vomit blood and lost pulses. Pt did have potassium 4.2, HCO3- 12, and last lactate 2.7, last Hgb 8.0. Pt had temporary NG tube w/suction placed which had 1L of dark colored blood removed during code. Pt was given multiple rounds of Epi, Sodium Bicarbonate, and was intubated. Family was contacted who wanted to continue all attempts of resuscitation for 20 minutes. After 20 minutes, no ROSC was achieved and the CODE was called. Shortly after, pronouncement was conducted. Causes of related to Hypovolemic/hemorrhagic shock. Patient seen and care discussed with my attending physician, Dr. Sherif Lopez, PGY-1
--- NOTE | 2024-05-27 22:58 | PD.DPN ---
Documentation for date of: 05/27/24 Pronouncement Note Contributing Factors (1) Altered mental status: (2) Acute upper GI bleeding: (3) Anemia: (4) Alcoholic liver disease: Additional Data Attending physician: Ori Vuong MD
--- NOTE | 2024-05-27 23:04 | DES_ITS ---
Documentation for date of: 05/27/24 Pronouncement Note Date and Time of Date of : 05/27/24 Time of : 22:53 PCOD Preliminary cause of : Hemorrhagic shock Contributing Factors (1) Altered mental status: (2) Acute upper GI bleeding: (3) Anemia: (4) Alcoholic liver disease: Summary Additional details: After CODE BLUE was called done after 20 minutes of attempted ROSC, pronouncement exam was conducted. Pt lacked corneal, and pupillary reflex. Pupils were fixed and dilated. No heart sound or breath sounds auscultated. Gag reflex absent. Peripheral pulses were not appreciated. At 22:53, pronouncement of the patient had been announced. This was likely related to hemo rrhagic/hypovolemic shock. Patient seen and care discussed with my attending physician, Dr. Sherif Lopez, PGY-1 Additional Data Confirmation of : no pulse, no respirations, no heart sounds and pupils fixed and dilated Family: contacted Attending physician: Ori Vuong MD Was code activated?: Yes
--- NOTE | 2024-05-27 23:32 | PC.NURSE ---
attempted to call son: Benjamin Jordan multiples times and goes directly to voicemail. per MD Yu, Benjamin requested us to call [employer]ae[employer] (another son) for arrangements and was given the number [phone]. Attempted to call this number multiple times as well but no answer. Communicated with Dock Worker and will wait to attempt again
--- NOTE | 2024-05-27 23:53 | PC.NURSE ---
UNIX DEVELOPER was called on pt, on arrival in room, pt was vomiting copious amount of blood. pulses were checked and none could be felt, pt unresponsive. cpr started and code called. See code sheet.
--- NOTE | 2024-05-27 23:54 | PC.NURSE ---
attempted to call pts son (lilia thurston) multiple times again and still no answer. attempted to call the other son, Yuri @ [phone], multiples times but also still no answer. storeroom supervisor made aware and was instructed to call the railroad conductor mortuary.
--- NOTE | 2024-05-28 07:52 | DES_ITS ---
Documentation for date of: 05/27/24 Summary Date and Time Date of admission: 05/15/24 01:17 Date of : 05/27/24 Time of : 22:00 Summary Hospital Course: Summary: Benjamin Villarreal was a 57-year-old male with past medical hypertension, hyperlipidemia, diabetes, alcohol use disorder causing decompensated liver cirrhosis who was initially admitted on 04/27 due to hematemesis and hematochezia. Patient received blood transfusion, FFP and platelets due to significant anemia. EGD showed grade 3 esophageal varices and band ligation was performed. Patient completed course of octreotide and Protonix drip as well as ceftriaxone for SBP prophylaxis. During hospital course, LFTs improved however he stayed in the hospital due to alcohol withdrawal symptoms with a CIWA peaking at 33. He was managed with Ativan and CIWA score improved later on as well as LFTs. MRCP showed no CBD stones and HIDA scan was performed due to concern of persistent elevation of T. bili which showed gallbladder ejection fraction of 5% suggesting cholestasis.On 05/15/2024,he was re-admitted for similar presentation of hematemesis however during this admission patient ended up developing hemorrhagic shock due to extensive blood loss from esophageal varices leading to bleeding from mouth and rectum. He was upgraded to ICU requiring pressor support and was significantly altered with hyperammonemia requiring intubation for airway protection. Initially, attempt was made to transfer the patient out for TIPS however due to increased mortality transfer facility refused to take the pt. His MELD NA score was 33 points indicating 66% mortality. Child-Garcia class C. 3 EGDs were performed during hospital course and first was unsuccessful however in other 2 EGDS, banding of esophageal varices was successful. He had decompensated liver cirrhoss with T. bili significantly elevated around 33 and we transfused 7 units of blood along with FFP and platelets due to coagulapathy. Patient also developed ATN due to variability of blood pressure and acute on chronic decompensation of liver cirrhosis and nephrology reported to wait for improvement & dialysis was deferred. He also developed ileus pattern concering for ACS with elevated baldder pressure as well as GPC bacteremia. Rectal tube, bowel regime and antibiotics were given respectively. Echocardiogram showed EF 55 to 60% with moderately dilated LA. RVSP 35 mmHg. Goals of care discussion was performed as patient's clinical status remained guarded with social sciences research scientist. Patient's son, Benjamin Oconnell was contacted as patient wished to talk to him. They were explained that his liver functions has remained significantly impaired evidence to his coagulation panel, platelet count, ammonia, amongst other laboratory findings. Patient was alert and oriented to understand the disease course and understood that his condition can deteriorate further. Son, Benjamin Booth expressed understanding of his father's situation and all questions were answered. Patient wished to proceed with full code and proceed with active treatment which was respected. Overnight, at 22:30, CODE BLUE was initiated as patient started vomiting blood and lost pulse. Labs were significant for potassium 4.2, bicarb 12 and lactic acid of 2.7. Hemoglobin was at 8. NG tube suctioning was performed which removed 1 L of dark blood during the code. He was given multiple rounds of epinephrine, sodium bicarbonate and was intubated. Family was contacted who wanted to continue all attempts of resuscitation for 20 minutes. After 20 minutes, no ROSC was achieved and the CODE was called. Shortly after, pronouncement was conducted. Causes of related to Hypovolemic/hemorrhagic shock. #Problem List during hospitalization #Acute decompensated cirrhosis #Decompensated Cirrhosis secondary to EtOH #History of alcohol use disorder #Esophageal varices status post band ligation (05/17, 05/24) #Hemorrhagic shock, resolved #Acute kidney injury secondary to ATN vs hepatorenal syndrome #Anion gap metabolic acidosis #Lactic acidosis #Azotemia #Streptococcus anginosus bacteremia #Intra-abdominal hypertension #Hepatic encephalopathy #Hyperammonemia #Hyperbilirubinemia #HFpEF #Type 2 diabetes mellitus #? Seizures #Hypertonic hypernatremia #Hypokalemia, #Hypercalcemia #Hperphosphatemia Attending Physician was notified,Dr Carolann Cooper MD PGY-2 Attending's attestation: I reviewed labs, imaging, EKG, home medications and prior available records. Face to face evaluation was performed by me. I have personally examined the patient and discussed assessment and plan with the IM team. I reviewed the resident note and agree with the plan with exceptions as below. Cause of is likely hemorrhagic shock secondary to bleeding esophageal varices secondary to end-stage liver disease secondary to alcoholic cirrhosis Contributing factors: HFpEF, acute hypoxic respiratory failure, acute kidney failure, and multiple electrolyte derangement Time spent is 40 minutes. More than 50% of the time was spent on patient education and coordination of care. Additional Data Attending physician: Ori Vuong MD Was code activated?: Yes Autopsy requested?: No merchandise examiner notified?: No Organ bank notified?: No Visit Providers Provider Primary care physician: Gamal Bonilla MD Consults: 05/14/24 23:01 Consult to Gastroenterology Stat Comment: Upper GI bleed Consulting Provider: Bolivar Liu 05/19/24 10:42 Referral Speech Therapy Routine Comment: 05/20/24 18:40 Consult to Neurology / Tele-Neurology Routine Comment: Possible seizures Consulting Provider: Anjel Martinez 05/21/24 07:38 Referral Physical Therapy Routine Comment: Physician Instructions: 05/21/24 10:20 Consult to Infectious Diseases Routine Comment: GPC bacteremia Consulting Provider: Parveen Chamorro 05/22/24 07:13 Referral Wound Care Routine Comment: open blister right arm. 05/22/24 07:14 Referral Registered Dietitian Routine Comment: open blister right arm. 05/23/24 16:14 Consult to Freezer Person Routine Comment: Consulting Provider: Alison Gonzalez 05/24/24 09:08 Consult to Nephrology Routine Comment: Consulting Provider: Yuliya Martinez 05/24/24 09:30 Referral Nutritional Services Stat Comment: for PPN Diagnosis Contributing Factors (1) Altered mental status: (2) Acute upper GI bleeding: (3) Anemia: (4) Alcoholic liver disease: Discharge Plan Plan Patient Disposition: Prescriptions/Referrals Referrals: Gamal Bonilla MD [Primary Care Provider] - Patient/Caregiver Discharge Instructions Print Language: Lao Discharge Order Discharge Orders: Discharge (Routine); Ordered 05/28/24 Ordered By: Terry Gorman
== END 2024-05-27 22:53 | disposition expired | DRG 280 ==
LOC: SERX 05-15 01:20 → SERHOLD 05-15 02:28 → S2NX 05-15 05:42 → S2SX 05-15 10:00 → S2NX 05-21 19:39 → S2SX 05-23 14:11 → S2NX 05-26 16:14
PROVIDERS: Internal Medicine Infectious Disease; Nurse Practitioner Family; Specialist; Student in an Organized Health Care Education/Training Program; Admitting Provider Internal Medicine; Emergency Provider Emergency Medicine; PCP Family Medicine; Visit Provider Student in an Organized Health Care Education/Training Program
PROC: (CPT 43239; principal; 2024-05-15 13:45)
PROC: 06L38CZ Occlusion of Esophageal Vein with Extraluminal Device, Via Natural or Artificial Opening Endoscopic (ICD-10-PCS; CPT 43239; principal; 2024-05-24 19:45)
DX: K70.40 Alcoholic hepatic failure without coma (principal); D62 Acute posthemorrhagic anemia; K70.31 Alcoholic cirrhosis of liver with ascites; K70.11 Alcoholic hepatitis with ascites; I85.11 Secondary esophageal varices with bleeding; F10.139 Alcohol abuse with withdrawal, unspecified; I11.0 Hypertensive heart disease with heart failure; I50.32 Chronic diastolic (congestive) heart failure; E11.9 Type 2 diabetes mellitus without complications; E78.5 Hyperlipidemia, unspecified; G93.41 Metabolic encephalopathy; E87.6 Hypokalemia; E86.1 Hypovolemia; R57.8 Other shock; K76.82 Hepatic encephalopathy; E83.39 Other disorders of phosphorus metabolism; E83.42 Hypomagnesemia; E83.52 Hypercalcemia; E87.1 Hypo-osmolality and hyponatremia; E87.4 Mixed disorder of acid-base balance; E87.5 Hyperkalemia; J18.9 Pneumonia, unspecified organism; J96.01 Acute respiratory failure with hypoxia; K56.7 Ileus, unspecified; R65.21 Severe sepsis with septic shock; K76.6 Portal hypertension; E88.09 Other disorders of plasma-protein metabolism, not elsewhere classified; K31.89 Other diseases of stomach and duodenum; N17.0 Acute kidney failure with tubular necrosis; E87.8 Other disorders of electrolyte and fluid balance, not elsewhere classified; E86.0 Dehydration; R57.1 Hypovolemic shock; R56.9 Unspecified convulsions; D65 Disseminated intravascular coagulation [defibrination syndrome]; E87.0 Hyperosmolality and hypernatremia; K76.7 Hepatorenal syndrome; Z51.5 Encounter for palliative care; Z79.899 Other long term (current) drug therapy; R78.81 Bacteremia; B95.4 Other streptococcus as the cause of diseases classified elsewhere
CPT/HCPCS: 36415; 36430; 36600; 70450; 71045; 74018; 76700; 76705; 76770; 80048; 80053; 80061; 80069; 80202; 80307; 80320; 81001; 82010; 82140; 82270; 82436; 82570; 82607; 82746; 82803; 83605; 83735; 84100; 84133; 84145; 84295; 84300; 84439; 84443; 85007; 85014; 85018; 85025; 85027; 85379; 85384; 85610; 85730; 86703; 86780; 86850; 86900; 86901; 86920; 86923; 86927; 86965; 87040; 87077; 87081; 87186; 92526; 92610; 92950; 93005; 93306; 94002; 94003; 94640; 94664; 95816; 96365; 96367; 97162; 99291; 99292; A4649; A9270; J0171; J0360; J0613; J0696; J1200; J1815; J1940; J2060; J2175; J2250; J2310; J2354; J2405; J2470; J2543; J2765; J3010; J3370; J3480; J3490; J7050; J7060; J7120; J7121; P9016; P9035; P9047; P9060; G0480; J1920